=== PATIENT | female | born 1995 | race Caucasian/White ===

== ENCOUNTER 2018-02-02 20:29 | Emergency (ER) | payer OTHER ==
--- OUTSIDE RECORDS SUMMARY | 2018-02-02 20:31 | XMS REPORT | Clinical Summary ---
:1995 Author Organization [facility] Address [address] [place] [id number] Care Team Providers Name Role Phone Radames Myers MD Primary Care Provider Allergies Active Allergy Reactions Severity Noted Date Comments Haloperidol 02/22/2017 Morphine GI Bleeding 02/15/2017 Vancomycin Other (See Comments) 02/15/2017 Red man syndrome Current Medications Prescription Sig. Disp. Refills Start Date End Date Status calcium carbonate Take 3 tablets 270 tablet 0 02/19/2017 03/21/2017 oyster shell (1,500 mg total) (OS-JOSSELINE) 500 mg by mouth 3 calcium (1,250 mg) (three) times a tabletIndications: day for 30 days Hypocalcemia Indications: Hypocalcemia. nicotine (NICODERM Place 1 patch on 30 patch 0 02/19/2017 03/21/2017 CQ) 7 mg/24 the skin daily hrIndications: for 30 days Smoking Cessation Indications: Smoking Cessation. calcitriol Take 1 capsule 90 capsule 0 02/19/2017 03/21/2017 (ROCALTROL) 0.5 MCG (0.5 mcg total) capsuleIndications: by mouth 3 Hypocalcemia (three) times a day for 30 days Indications: Hypocalcemia. cholecalciferol, Take 1 tablet 30 tablet 0 02/19/2017 03/21/2017 vitamin D3, (VITAMIN (1,000 Units D3) 1,000 unit total) by mouth tabletIndications: daily for 30 Vitamin D Deficiency days Indications: Vitamin D Deficiency. butalbital-acetamino Take 1 tablet by 20 tablet 0 02/23/2017 03/25/2017 phen-caff (FIORICET, mouth every 6 ESGIC) 50-325-40 mg (six) hours as per tablet needed for headaches for up to 30 days. hydrOXYzine (ATARAX) Take 1 tablet 20 tablet 0 02/23/2017 03/25/2017 10 MG tablet (10 mg total) by mouth 3 (three) times a day as needed for anxiety for up to 30 days. Active Problems Problem Noted Date Spinal puncture headache 02/22/2017 Pseudotumor cerebri 02/19/2017 Idiopathic hypoparathyroidism 02/19/2017 Hypocalcemia 02/19/2017 Emotionally unstable borderline personality disorder in adult 02/17/2017 Cannabis use disorder, moderate, dependence 02/17/2017 Encounters Date Type Specialty Care Team Description 04/06/2017 Telephone Neurology Talha Quiroga MD 02/23/2017 Patient Outreach Quality Qi Valdovinos RN 02/22/2017 - Emergency General Internal Rosas, Spinal puncture headache ( Primary Dx); 02/23/2017 Medicine Silvino Muscle spasms of neck DO Shruthi Palencia Swati, MD 02/22/2017 Procedure Pass General Internal Medicine 02/20/2017 Documentation Interactive Art Director Arielle Foreman, 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 Clinical Support Ophthalmology February, [place] Testing Only 02/18/2017 Clinical Support Ophthalmology February, [place] Testing Only 02/17/2017 Procedure Pass Psychiatry 02/17/2017 Procedure Pass Psychiatry 02/15/2017 - Hospital Encounter Psychiatry Lucille Escobar Emotionally unstable borderline personality disorder in adult (Primary Dx); 02/19/2017 MD Pilar Cannabis use disorder, moderate, dependence; Panfilo, Pseudotumor cerebri; Stefanie Arias MD Idiopathic hypoparathyroidism; Hypocalcemia after 02/01/2017 Family History Medical History Relation Name Comments Depression Maternal Aunt Suicide Attempts Maternal Aunt Depression Mother Suicide Attempts Mother Relation Name Status Comments Maternal Aunt Mother Social History Tobacco Use Types Packs/Day Years Used Date Current Every Day Smoker Cigarettes Tobacco Cessation: Ready to Quit: No; Counseling Given: Yes Alcohol Use Drinks/Week oz/Week Comments Yes drinks casually, once a month Sex Assigned at Date Recorded Not on file Last Filed Vital Signs Vital Sign Reading Time Taken Blood Pressure 118/72 02/23/2017 8:16 AM CDT Pulse 94 02/23/2017 8:16 AM CDT Temperature 36.4 C (97.5 F) 02/23/2017 8:16 AM CDT Respiratory Rate 17 02/23/2017 8:16 AM CDT Oxygen Saturation 98% 02/23/2017 8:16 AM CDT Inhaled Oxygen Concentration - - Weight 105 kg (232 lb) 02/22/2017 10:54 AM CDT Height 165.1 cm (5' 5") 02/22/2017 1:00 AM CDT Body Mass Index 38.61 02/22/2017 10:54 AM CDT Plan of Treatment Health Maintenance Due Date Last Done Comments CHLAMYDIA SCREENING 2011 CERVICAL CANCER SCREENING 08/16/2016 INFLUENZA VACCINE 12/09/2017 Procedures Procedure Name Priority Date/Time Associated Comments Diagnosis ANTI-NEUTROPHILIC Routine 02/23/2017 10:11 Results for this CYTOPLASMIC ABS PANEL AM CDT procedure are in the results section. SS-B ANTIBODY Routine 02/23/2017 10:11 Results for this AM CDT procedure are in the results section. SS-A ANTIBODY Routine 02/23/2017 10:11 Results for this AM CDT procedure are in the results section. CYCLIC CITRULLINATED Routine 02/23/2017 10:11 Results for this PEPTIDE AB, IGG AM CDT procedure are in the results section. PHOSPHORUS LEVEL Routine 02/23/2017 6:13 Results for this AM CDT procedure are in the results section. MAGNESIUM LEVEL Routine 02/23/2017 6:13 Results for this AM CDT procedure are in the results section. CALCIUM LEVEL Routine 02/23/2017 6:13 Results for this AM CDT procedure are in the results section. ALBUMIN LEVEL Routine 02/23/2017 6:13 Results for this AM CDT procedure are in the results section. IR EPIDURAL BLOOD PATCH STAT 02/22/2017 2:16 Results for this PM CDT procedure are in the results section. MRI BRAIN W WO CONTRAST STAT 02/22/2017 11:51 Results for this AM CDT procedure are in the results section. CT CERVICAL SPINE W STAT 02/22/2017 5:21 Results for this CONTRAST AM CDT procedure are in the results section. CT LUMBAR SPINE W STAT 02/22/2017 5:21 Results for this CONTRAST AM CDT procedure are in the results section. ZZESTIMATED GFR STAT 02/22/2017 1:25 Results for this AM CDT procedure are in the results section. HCG QUALITATIVE, URINE STAT 02/22/2017 1:25 Results for this SCREEN AM CDT procedure are in the results section. URINALYSIS SCREEN AND STAT 02/22/2017 1:25 Results for this MICROSCOPY, WITH REFLEX AM CDT procedure are in TO CULTURE the results section. BASIC METABOLIC PANEL STAT 02/22/2017 1:25 Results for this AM CDT procedure are in the results section. PARTIAL THROMBOPLASTIN STAT 02/22/2017 1:25 Results for this TIME (PTT) AM CDT procedure are in the results section. PROTHROMBIN TIME WITH STAT 02/22/2017 1:25 Results for this INR AM CDT procedure are in the results section. HC COMPLETE BLD COUNT STAT 02/22/2017 1:25 Results for this W/AUTO DIFF AM CDT procedure are in the results section. GRAM STAIN STAT 02/22/2017 1:13 Results for this AM CDT procedure are in the results section. URINE CULTURE STAT 02/22/2017 1:13 Results for this AM CDT procedure are in the results section. PTH-RELATED PEPTIDE Routine 02/19/2017 7:40 Results for this AM CDT procedure are in the results section. MAGNESIUM LEVEL Routine 02/19/2017 4:00 Results for this AM CDT procedure are in the results section. PHOSPHORUS LEVEL Routine 02/19/2017 4:00 Results for this AM CDT procedure are in the results section. ALBUMIN LEVEL Routine 02/19/2017 4:00 Results for this AM CDT procedure are in the results section. CALCIUM LEVEL Routine 02/19/2017 4:00 Results for this AM CDT procedure are in the results section. FUNGUS CULTURE Routine 02/18/2017 6:49 Results for this PM CDT procedure are in the results section. IGG SYNTHESIS RATE Routine 02/18/2017 5:49 Results for this STUDY PM CDT procedure are in the results section. PROTEIN, CSF Routine 02/18/2017 5:49 Results for this PM CDT procedure are in the results section. GLUCOSE LEVEL, CSF Routine 02/18/2017 5:49 Results for this PM CDT procedure are in the results section. CSF CELL COUNT WITH Routine 02/18/2017 5:49 Results for this DIFFERENTIAL PM CDT procedure are in the results section. GRAM STAIN Routine 02/18/2017 5:49 Results for this PM CDT procedure are in the results section. CRYPTOCOCCAL ANTIGEN Routine 02/18/2017 5:49 Results for this SCREEN PM CDT procedure are in the results section. CSF CULTURE Routine 02/18/2017 5:49 Results for this PM CDT procedure are in the results section. IR LUMBAR PUNCTURE Routine 02/18/2017 5:00 Results for this PM CDT procedure are in the results section. VITAMIN D 25 HYDROXY Routine 02/18/2017 2:46 Results for this LEVEL PM CDT procedure are in the results section. VITAMIN D 1,25 Routine 02/18/2017 2:46 Results for this DIHYDROXY LEVEL, SERUM PM CDT procedure are in the results section. RHEUMATOID FACTOR Routine 02/18/2017 6:36 Results for this AM CDT procedure are in the results section. MRI BRAIN W WO CONTRAST Routine 02/17/2017 4:16 Results for this PM CDT procedure are in the results section. MRI BRAIN VENOGRAM Routine 02/17/2017 3:41 Results for this PM CDT procedure are in the results section. TERRY TITER Routine 02/17/2017 7:48 Results for this AM CDT procedure are in the results section. ZZESTIMATED GFR Routine 02/17/2017 7:48 Results for this AM CDT procedure are in the results section. COMPREHENSIVE METABOLIC Routine 02/17/2017 7:48 Results for this PANEL AM CDT procedure are in the results section. PARATHYROID HORMONE Routine 02/17/2017 7:48 Results for this AM CDT procedure are in the results section. PHOSPHORUS LEVEL Routine 02/17/2017 7:48 Results for this AM CDT procedure are in the results section. TERRY Routine 02/17/2017 7:48 Results for this AM CDT procedure are in the results section. C-REACTIVE PROTEIN Routine 02/17/2017 7:48 Results for this AM CDT procedure are in the results section. SEDIMENTATION RATE Routine 02/17/2017 7:48 Results for this AM CDT procedure are in the results section. PROTHROMBIN TIME WITH Routine 02/17/2017 7:48 Results for this INR AM CDT procedure are in the results section. MAGNESIUM LEVEL Routine 02/17/2017 7:48 Results for this AM CDT procedure are in the results section. HC COMPLETE BLD COUNT Routine 02/17/2017 7:48 Results for this W/AUTO DIFF AM CDT procedure are in the results section. URINE DRUGS OF ABUSE Routine 02/16/2017 5:54 Results for this SCREEN AM CDT procedure are in the results section. IGG SYNTHESIS RATE Routine 02/16/2017 4:00 Results for this STUDY AM CDT procedure are in the results section. SYPHILIS TREPONEMAL IGG Routine 02/16/2017 4:00 Results for this AM CDT procedure are in the results section. HEMOGLOBIN A1C Routine 02/15/2017 9:40 Results for this PM CDT procedure are in the results section. ECG 12-LEAD STAT 02/15/2017 7:22 Results for this PM CDT procedure are in the results section. ZZESTIMATED GFR Routine 02/15/2017 5:28 Results for this PM CDT procedure are in the results section. T4, FREE Routine 02/15/2017 5:28 Results for this PM CDT procedure are in the results section. THYROID STIMULATING Routine 02/15/2017 5:28 Results for this HORMONE PM CDT procedure are in the results section. LIPID PANEL Routine 02/15/2017 5:28 Results for this PM CDT procedure are in the results section. COMPREHENSIVE METABOLIC Routine 02/15/2017 5:28 Results for this PANEL PM CDT procedure are in the results section. after 02/01/2017 Results SS-B antibody (02/23/2017 10:11 AM) Sjogren's SS-B <0.2 0.0 - 0.9 AI [facility] DEPARTMENT OF antibody Comment: PATHOLOGY AND GENOMIC SS-B is less sensitive than SS-A for Sjogren's syndrome, but is more MEDICINE specific and is useful in distinguishing SLE from Sjogren's. SS-A should beordered separately if clinically warranted. Specimen Serum Performing Organization Address [facility] Phone Number [facility] DEPARTMENT OF PATHOLOGY AND [address] [place] [id number] GENOMIC MEDICINE SS-A antibody (02/23/2017 10:11 AM) ogren's SS-A >8.0 (H) 0.0 - 0.9 AI [facility] DEPARTMENT OF antibody Comment: PATHOLOGY AND GENOMIC SS-A is sensitive for Sjogren's syndrome, but may also be positive with MEDICINE SLE(up to 30% of SLE patients are positive for SS-A). SS-B is less sensitive, but is useful in distinguishing SLE from Sjogren's, and should be ordered if clinically warranted Specimen Serum Performing Organization Address [facility] Phone Number [facility] DEPARTMENT OF PATHOLOGY AND [address] [place] [address] Cyclic citrullinated peptide antibody, IgG (02/23/2017 10:11 AM) Cyclic citrullin <0.5 0.0 - 2.9 U/mL [facility] DEPARTMENT OF peptide Ab Comment: PATHOLOGY AND GENOMIC Anti-cyclic citrullinated peptide (Anti-CCP) IgG antibodies are present in MEDICINE 60-80% of patients with rhuematoid arthritis (RA) and have specificity of 95-98%. These autoantibodies may be present in the preclinical phase of thedisease, are associated with future RA development and may be useful in predicting increased severity and erosive disease course. Specimen Serum Performing Organization Address [facility] Phone Number [facility] DEPARTMENT OF PATHOLOGY AND [address] [place] [address] Anti-neutrophilic cytoplasmic Abs panel (02/23/2017 10:11 AM) ANCA screen Negative Negative [facility] DEPARTMENT OF PATHOLOGY AND [facility] Specimen Blood Performing Organization Address [facility] Phone Number [facility] DEPARTMENT OF PATHOLOGY AND [address] [place] [address] Phosphorus level (02/23/2017 6:13 AM)Only the most recent of3 resultswithin the time period is included. Phosphorus 6.1 (H) 2.4 - 4.5 mg/dL [facility] DEPARTMENT OF PATHOLOGY AND GENOMIC MEDICINE Specimen Plasma specimen Performing Organization Address [facility] Phone Number [facility] DEPARTMENT OF PATHOLOGY AND [address] [place] [address] Magnesium level (02/23/2017 6:13 AM)Only the most recent of3 resultswithin the time period is included. Magnesium 1.8 1.6 - 2.6 mg/dL [facility] DEPARTMENT OF PATHOLOGY AND GENOMIC MEDICINE Specimen Plasma specimen Performing Organization Address [facility] Phone Number [facility] DEPARTMENT OF PATHOLOGY AND [address] [place] [address] Calcium level (02/23/2017 6:13 AM)Only the most recent of2 resultswithin the time period is included. Calcium 7.3 (L) 8.3 - 10.2 mg/dL [facility] DEPARTMENT OF PATHOLOGY AND GENOMIC MEDICINE Specimen Plasma specimen Performing Organization Address [facility] Phone Number [facility] DEPARTMENT OF PATHOLOGY AND [address] [place] [address] GENOMIC MEDICINE Albumin level (02/23/2017 6:13 AM)Only the most recent of2 resultswithin the time period is included. Albumin 2.9 (L) 3.5 - 5.0 g/dL [facility] DEPARTMENT OF PATHOLOGY AND GENOMIC MEDICINE Specimen Plasma specimen Performing Organization Address [facility] Phone Number [facility] DEPARTMENT OF PATHOLOGY AND [address] [place], [place] [id number] GENOMIC MEDICINE IR Epidural Blood Patch (02/22/2017 2:16 PM) Narrative Performed At EXAMINATION:[facility] CLINICAL H[facility]ORY:post LP spinal headache COMPARISON:None. Findings: Informed consent was obtained. The lower back was prepped and draped in usual sterile fashion. 1% lidocaine was used for local anesthesia. A 20-gauge Touhy needle was advanced into the posterior epidural space at the L2-3 level under intermittent fluoroscopic guidance. Positioning was confirmed with 3-4 cc of Omnipaque 240. Then 12 cc of the patient's venous blood was withdrawn from a peripheral IV and inserted through the needle into the posterior epidural space. No complications. Total fluoroscopic time was 0.1 minute. Total radiation dose was 25 mGY IMPRESSION: Successful fluoroscopic guided lumbar epidural blood patch. [facility]-[id number] Procedure Note Interface, Radiology Results Incoming - 02/22/2017 2:55 PM CDT EXAMINATION: IR EPIDURAL BLOOD PATCH CLINICAL HISTORY: post LP spinal headache COMPARISON: None. Findings: Informed consent was obtained. The lower back was prepped and draped in usual sterile fashion. 1% lidocaine was used for local anesthesia. A 20-gauge Touhy needle was advanced into the posterior epidural space at the L2-3 level under intermittent fluoroscopic guidance. Positioning was confirmed with 3-4 cc of Omnipaque 240. Then 12 cc of the patient's venous blood was withdrawn from a peripheral IV and inserted through the needle into the posterior epidural space. No complications. Total fluoroscopic time was 0.1 minute. Total radiation dose was 25 mGY IMPRESSION: Successful fluoroscopic guided lumbar epidural blood patch. [facility]-[id number] Performing Organization Address [facility] Phone Number [facility] [address] [place] [address] MRI Brain W Wo Contrast (02/22/2017 11:51 AM)Only the most recent of2 resultswithin the time period is included. Narrative Performed At EXAMINATION:MRI BRAIN W WO CONTRAST [facility] CLINICAL HISTORY:HEADACHE, STROKE COMPARISON:February 17, 2017 Findings: No intracranial hemorrhage, acute ischemia, extra-axial fluid collections or parenchymal mass lesions. No hydrocephalus. No suspicious focal bone marrow lesions. No abnormal postcontrast enhancement. Cerebellar tonsillar ectopia. Partial opacification of right mastoid air cells. IMPRESSION: No acute intracranial abnormalities or mass lesions. No interval change since last examination. [facility]-[id number] Procedure Note Interface, Radiology Results Incoming - 02/22/2017 11:59 AM CDT EXAMINATION: MRI BRAIN W WO CONTRAST CLINICAL HISTORY: HEADACHE, STROKE COMPARISON: February 17, 2017 Findings: No intracranial hemorrhage, acute ischemia, extra-axial fluid collections or parenchymal mass lesions. No hydrocephalus. No suspicious focal bone marrow lesions. No abnormal postcontrast enhancement. Cerebellar tonsillar ectopia. Partial opacification of right mastoid air cells. IMPRESSION: No acute intracranial abnormalities or mass lesions. No interval change since last examination. [facility]-[id number] Performing Organization Address City/State/Zipcode Phone Number [facility] [address] [place] [address] CT Cervical Spine W Contrast (02/22/2017 5:21 AM) Narrative Performed At Examination: CT CERVICAL SPINE W CONTRAST [facility] Clinical history: NECK PAINCERVICAL SPINE Comparison: None Technique: CT cervical spine with contrast. Coronal and sagittal reconstructions were created and reviewed. Impression: Straightening of the cervical lordosis is identified. No acute fractures or subluxations. No significant degenerative changes. No spinal canal stenosis or neural foraminal stenosis. Arising from the right lobe of the thyroid gland, a peripherally calcified 6 x 6 mm nodule is identified. No enhancing soft tissue abnormalities are seen. Specifically, no rim-enhancing fluid collections are identified. [id number] Procedure Note Interface, Radiology Results Incoming - 02/22/2017 6:17 AM CDT Examination: CT CERVICAL SPINE W CONTRAST Clinical history: NECK PAIN CERVICAL SPINE Comparison: None Technique: CT cervical spine with contrast. Coronal and sagittal reconstructions were created and reviewed. Impression: Straightening of the cervical lordosis is identified. No acute fractures or subluxations. No significant degenerative changes. No spinal canal stenosis or neural foraminal stenosis. Arising from the right lobe of the thyroid gland, a peripherally calcified 6 x 6 mm nodule is identified. No enhancing soft tissue abnormalities are seen. Specifically, no rim- enhancing fluid collections are identified. [id number] Performing Organization Address [facility] Phone Number [facility] [address] [place] [address] CT Lumbar Spine W Contrast (02/22/2017 5:21 AM) Narrative Performed At Examination: CT LUMBAR SPINE W CONTRAST [facility] Clinical history: back pain s p LP Comparison: None Technique: CT lumbar spine with contrast. Coronal and sagittal reconstructions were created and reviewed. Impression: Lumbar lordosis is maintained. No compression deformities or subluxations. No spinal canal stenosis or neural foraminal stenosis. No soft tissue abnormalities. Specifically, no rim-enhancing fluid collections are identified. [id number] Procedure Note Hm Interface, Radiology Results Incoming - 02/22/2017 7:58 AM CDT Examination: CT LUMBAR SPINE W CONTRAST Clinical history: back pain s p LP Comparison: None Technique: CT lumbar spine with contrast. Coronal and sagittal reconstructions were created and reviewed. Impression: Lumbar lordosis is maintained. No compression deformities or subluxations. No spinal canal stenosis or neural foraminal stenosis. No soft tissue abnormalities. Specifically, no rim-enhancing fluid collections are identified. [facility]-[id number] Performing Organization Address [facility] Phone Number [facility] [address] [place] [address] Urinalysis screen and microscopy, with reflex to culture (02/22/2017 1:25 AM) Specimen site Clean catch [facility] DEPARTMENT OF PATHOLOGY AND GENOMIC MEDICINE Color, UA Yellow [facility] DEPARTMENT OF PATHOLOGY AND GENOMIC MEDICINE Appearance, UA Hazy [facility] DEPARTMENT OF PATHOLOGY AND GENOMIC MEDICINE Specific gravity, UA 1.029 1.001 - 1.035 [facility] DEPARTMENT OF PATHOLOGY AND GENOMIC MEDICINE pH, UA 5.0 5.0 - 8.5 [facility] DEPARTMENT OF PATHOLOGY AND GENOMIC MEDICINE Protein, UA 1+ (A) Negative [facility] DEPARTMENT OF PATHOLOGY AND GENOMIC MEDICINE Glucose, UA Negative Negative [facility] DEPARTMENT OF PATHOLOGY AND GENOMIC MEDICINE Ketones, UA Negative Negative [facility] DEPARTMENT OF PATHOLOGY AND GENOMIC MEDICINE Bilirubin, UA Negative Negative [facility] DEPARTMENT OF PATHOLOGY AND GENOMIC MEDICINE Blood, UA Negative Negative [facility] DEPARTMENT OF PATHOLOGY AND GENOMIC MEDICINE Nitrite, UA Negative Negative [facility] DEPARTMENT OF PATHOLOGY AND GENOMIC MEDICINE Urobilinogen, UA <2.0 <2.0 [facility] DEPARTMENT OF PATHOLOGY AND GENOMIC MEDICINE Leukocyte esterase, UA Trace (A) Negative [facility] DEPARTMENT OF PATHOLOGY AND GENOMIC MEDICINE Epithelial cells, UA 6 /HPF [facility] DEPARTMENT OF PATHOLOGY AND GENOMIC MEDICINE WBC, UA 2 0 - 4 /HPF [facility] DEPARTMENT OF PATHOLOGY AND GENOMIC MEDICINE RBC, UA 1 0 - 2 /HPF [facility] DEPARTMENT OF PATHOLOGY AND GENOMIC MEDICINE Bacteria, UA Few None seen [facility] DEPARTMENT OF PATHOLOGY AND GENOMIC MEDICINE Yeast, UA None seen [facility] DEPARTMENT OF PATHOLOGY AND GENOMIC MEDICINE Yeast with pseudohyphae, UA None seen [facility] DEPARTMENT OF PATHOLOGY AND GENOMIC MEDICINE Specimen Urine Performing Organization Address [facility] Phone Number [facility] DEPARTMENT OF PATHOLOGY AND [address] [place] [address] Estimated GFR (02/22/2017 1:25 AM)Only the most recent of3 resultswithin the time period is included. GFR Non Af Amer >90 mL/min/1.73 m2 [facility] DEPARTMENT OF PATHOLOGY AND GENOMIC MEDICINE GFR Af Amer >90 mL/min/1.73 m2 [facility] DEPARTMENT OF Comment: PATHOLOGY AND GENOMIC Chronic kidney disease: <60 mL/min/1.73m2 MEDICINE Kidney failure: <15 mL/min/1.73m2 The estimated GFR is calculated from the IDMS-traceable Modification of Diet in Renal Disease Equation. The accuracy of the calculation is poor when the creatinine is normal. Calculated values >90 mL/min/1.73m2 are not reported. This equation has not been validated in children (<18 years), women, the elderly (>70 years), or ethnic groups other than Caucasians and Americans. Specimen Plasma specimen Performing Organization Address City/State/Zipcode Phone Number [facility] DEPARTMENT OF PATHOLOGY AND [address] [place] [address] hCG qualitative, urine screen (02/22/2017 1:25 AM) hCG qualitative, urine NegativeComment: [facility] DEPARTMENT OF Sensitivity of HCG test: 25 PATHOLOGY AND GENOMIC mIU/mL MEDICINE Specimen Urine Performing Organization Address City/State/[facility] Phone Number [facility] DEPARTMENT OF PATHOLOGY AND [address] [place] [address] Partial thromboplastin time, activated (02/22/2017 1:25 AM) PTT 25.3 23.0 - 36.0 sec [facility] DEPARTMENT OF PATHOLOGY Comment: AND [facility] PTT therapeutic range for unfractionated heparin is 61.0-112.0 seconds which corresponds to Anti-Xa 0.3-0.7 U/ml. Specimen Blood Performing Organization Address City/[facility]/Zipcode Phone Number [facility] DEPARTMENT OF PATHOLOGY AND [address] [place] [address] Prothrombin time with INR (02/22/2017 1:25 AM)Only the most recent of2 resultswithin the time period is included. Prothrombin time 14.2 12.0 - 15.0 sec [facility] DEPARTMENT OF PATHOLOGY AND GENOMIC MEDICINE INR 1.1 [facility] DEPARTMENT OF Comment: PATHOLOGY AND GENOMIC The International Normalized Ratio (INR) is a therapeutic MEDICINE monitoring tool for patients who are stable on oral anticoagulant therapy. An INR of 2.0-3.0 is suggested for deep vein thrombosis/pulmonary embolism. Specimen Blood Performing Organization Address City/[facility] Phone Number [facility] DEPARTMENT OF PATHOLOGY AND [address] [place] [address] CBC with platelet and differential (02/22/2017 1:25 AM)Only the most recent of2 resultswithin the time period is included. WBC 8.48 4.50 - 11.00 k/uL [facility] DEPARTMENT OF PATHOLOGY AND GENOMIC MEDICINE RBC 4.25 4.20 - 5.50 m/uL [facility] DEPARTMENT OF PATHOLOGY AND GENOMIC MEDICINE HGB 12.3 12.0 - 16.0 g/dL [facility] DEPARTMENT OF PATHOLOGY AND GENOMIC MEDICINE HCT 36.9 (L) 37.0 - 47.0 % [facility] DEPARTMENT OF PATHOLOGY AND GENOMIC MEDICINE MCV 86.8 82.0 - 100.0 fL [facility] DEPARTMENT OF PATHOLOGY AND GENOMIC MEDICINE MCH 28.9 27.0 - 34.0 pg [facility] DEPARTMENT OF PATHOLOGY AND GENOMIC MEDICINE MCHC 33.3 31.0 - 37.0 g/dL [facility] DEPARTMENT OF PATHOLOGY AND GENOMIC MEDICINE RDW - SD 43.8 37.0 - 55.0 fL [facility] DEPARTMENT OF PATHOLOGY AND GENOMIC MEDICINE MPV 10.9 8.8 - 13.2 fL [facility] DEPARTMENT OF PATHOLOGY AND GENOMIC MEDICINE Platelet count 230 150 - 400 k/uL [facility] DEPARTMENT OF PATHOLOGY AND GENOMIC MEDICINE Nucleated RBC 0.00 /100 WBC [facility] DEPARTMENT OF PATHOLOGY AND GENOMIC MEDICINE Neutrophils 63.4 39.0 - 69.0 % [facility] DEPARTMENT OF PATHOLOGY AND GENOMIC MEDICINE Lymphocytes 27.0 25.0 - 45.0 % [facility] DEPARTMENT OF PATHOLOGY AND GENOMIC MEDICINE Monocytes 6.7 0.0 - 10.0 % [facility] DEPARTMENT OF PATHOLOGY AND GENOMIC MEDICINE Eosinophils 2.1 0.0 - 5.0 % [facility] DEPARTMENT OF PATHOLOGY AND GENOMIC MEDICINE Basophils 0.4 0.0 - 1.0 % [facility] DEPARTMENT OF PATHOLOGY AND GENOMIC MEDICINE Immature granulocytes 0.4Comment: 0.0 - 1.0 % [facility] DEPARTMENT OF "Immature PATHOLOGY AND GENOMIC granulocytes" MEDICINE (promyelocytes, myelocytes, metamyelocytes) Specimen Blood Performing Organization Address City/[facility] Phone Number [facility] DEPARTMENT OF PATHOLOGY AND [address] [place] [id number] [facility] Basic metabolic panel (02/22/2017 1:25 AM) Sodium 134 (L) 135 - 148 mEq/L [facility] DEPARTMENT OF PATHOLOGY AND GENOMIC MEDICINE Potassium 4.2 3.5 - 5.0 mEq/L [facility] DEPARTMENT OF PATHOLOGY AND GENOMIC MEDICINE Chloride 97 (L) 98 - 112 mEq/L [facility] DEPARTMENT OF PATHOLOGY AND GENOMIC MEDICINE CO2 24 24 - 31 mEq/L [facility] DEPARTMENT OF PATHOLOGY AND GENOMIC MEDICINE Anion gap 13 7 - 15 mEq/L [facility] DEPARTMENT OF PATHOLOGY Comment: AND [facility] Starting from August , anion gap calculation no longer incorporates potassium. Please note the change. BUN 18 6 - 20 mg/dL [facility] DEPARTMENT OF PATHOLOGY AND GENOMIC MEDICINE Creatinine 0.7 0.5 - 0.9 mg/dL [facility] DEPARTMENT OF PATHOLOGY AND GENOMIC MEDICINE Glucose 99 65 - 99 mg/dL [facility] DEPARTMENT OF PATHOLOGY AND GENOMIC MEDICINE Calcium 7.4 (L) 8.3 - 10.2 mg/dL [facility] DEPARTMENT OF PATHOLOGY AND GENOMIC MEDICINE Specimen Plasma specimen Performing Organization Address City/[facility] Phone Number [facility] DEPARTMENT OF PATHOLOGY AND [address] [place] [address] [facility] Gram stain (02/22/2017 1:13 AM)Only the most recent of2 resultswithin the time period is included. Gram stain result No WBC's [facility] DEPARTMENT OF PATHOLOGY Moderate Gram positive rods AND [employer] MEDICINE Comment: Specimen Information Specimen Source: Urine Specimen Site: See UA Specimen Urine Performing Organization Address [facility] Phone Number [facility] DEPARTMENT OF PATHOLOGY AND [address] [place] [address] Urine culture (02/22/2017 1:13 AM) Urine culture isolate Mixed Gram positive francie [facility] DEPARTMENT OF PATHOLOGY 10-3 cfu/ml AND [employer] [facility] (A) Comment: Specimen Information Specimen Source: Urine Specimen Site: See UA Specimen Urine Performing Organization Address City/[facility] Phone Number [facility] DEPARTMENT OF PATHOLOGY AND [address] [place] [phone] [place] [address] PTH-related peptide (02/19/2017 7:40 AM) PTH-related peptide <0.2 <2.0 pmol/L [facility] DEPARTMENT OF Comment: PATHOLOGY AND GENOMIC ADDITIONAL INFORMATION MEDICINE This test was developed and its performance characteristics determined by [facility] in a manner consistent with CLIA requirements. This test has not been cleared or approved by the U.S. Food and Drug Administration. Test Performed by: [facility] [address] [place] [address] Specimen Blood Performing Organization Address [facility] Phone Number [facility] DEPARTMENT OF PATHOLOGY AND [address] [place], [place] [id number] [employer] [facility] Fungus culture (02/18/2017 6:49 PM) Fungus culture isolate No growth after 4 weeks of incubation. [facility] DEPARTMENT OF Comment: PATHOLOGY AND GENOMIC Specimen Information MEDICINE Specimen Source: CSF (Spinal Fluid) Specimen Site: No tube number noted Colorless Specimen Cerebrospinal fluid Performing Organization Address [facility] Phone Number [facility] DEPARTMENT OF PATHOLOGY AND [address] [place] [address] IgG synthesis rate study (02/18/2017 5:49 PM)Only the most recent of2 resultswithin the time period is included. IgG albumin ratio, CSF 0.34 (H) 0.00 - 0.23 [facility] DEPARTMENT OF PATHOLOGY AND [employer] [facility] IgG index, CSF 0.57 0.01 - 0.63 [facility] DEPARTMENT OF PATHOLOGY AND GENOMIC MEDICINE IgG synthetic rate 3.27 -9.90 - 3.30 mg/day [facility] DEPARTMENT OF PATHOLOGY AND GENOMIC MEDICINE Q-albumin ratio, CSF 3.11 2.00 - 6.00 [facility] DEPARTMENT OF PATHOLOGY AND GENOMIC MEDICINE IgG, CSF 3.63 (H) 1.00 - 3.00 mg/dL [facility] DEPARTMENT OF PATHOLOGY AND GENOMIC MEDICINE Albumin, CSF 10.57 10.00 - 30.00 mg/dL [facility] DEPARTMENT OF PATHOLOGY AND GENOMIC MEDICINE IgG 2,031 (H) 700 - 1,600 mg/dL [facility] DEPARTMENT OF PATHOLOGY AND GENOMIC MEDICINE Albumin, S 3,400.0 (L) 3,640.0 - 5,304.0 mg/dL [facility] DEPARTMENT OF PATHOLOGY AND GENOMIC MEDICINE Specimen Cerebrospinal fluid Performing Organization Address City/[facility] Phone Number [facility] DEPARTMENT OF PATHOLOGY AND [address] [place] [address] Cryptococcal antigen, screen (02/18/2017 5:49 PM) Cryptococcal Ag Negative - No Cryptococcus antigen detected. [facility] DEPARTMENT OF PATHOLOGY Comment: AND [employer] MEDICINE Specimen Information Specimen Source: CSF (Spinal Fluid) Specimen Site: No tube number noted Colorless Specimen Cerebrospinal fluid Performing Organization Address City/[facility] Phone Number [facility] DEPARTMENT OF PATHOLOGY AND [address] [place] [address] CSF culture (02/18/2017 5:49 PM) CSF culture isolate No growth after 3 days. [facility] DEPARTMENT OF PATHOLOGY Comment: AND [employer] MEDICINE Specimen Information Specimen Source: CSF (Spinal Fluid) Specimen Site: No tube number noted Colorless Specimen Cerebrospinal fluid Performing Organization Address City/[facility] Phone Number [facility] DEPARTMENT OF PATHOLOGY AND [address] [place] [phone] [place] [address] CSF cell count with differential (02/18/2017 5:49 PM) Color, CSF Colorless [facility] DEPARTMENT OF PATHOLOGY AND GENOMIC MEDICINE Appearance, CSF Clear [facility] DEPARTMENT OF PATHOLOGY AND GENOMIC MEDICINE RBC, CSF 1 0 - 1 /CMM [facility] DEPARTMENT OF PATHOLOGY AND GENOMIC MEDICINE WBC, CSF 8 (H) 0 - 5 /CMM [facility] DEPARTMENT OF PATHOLOGY AND GENOMIC MEDICINE CSF mononuclear cell See Diff [facility] DEPARTMENT OF PATHOLOGY AND GENOMIC MEDICINE Lymphocytes, CSF 86 % [facility] DEPARTMENT OF PATHOLOGY AND GENOMIC MEDICINE Monocytes, CSF 12 % [facility] DEPARTMENT OF PATHOLOGY AND GENOMIC MEDICINE Plasma cells, CSF 2 % [facility] DEPARTMENT OF PATHOLOGY AND GENOMIC MEDICINE Specimen Cerebrospinal fluid Performing Organization Address City/[facility] Phone Number [facility] DEPARTMENT OF PATHOLOGY AND [address] [place] [address] Protein, CSF (02/18/2017 5:49 PM) Protein, CSF 23 15 - 45 mg/dL [facility] DEPARTMENT OF PATHOLOGY AND GENOMIC MEDICINE Specimen Cerebrospinal fluid Performing Organization Address City/[facility] Phone Number [facility] DEPARTMENT OF PATHOLOGY AND [address] [place] [address] Glucose level, CSF (02/18/2017 5:49 PM) Glucose, CSF 60 40 - 70 mg/dL [facility] DEPARTMENT OF PATHOLOGY AND GENOMIC MEDICINE Specimen Cerebrospinal fluid Performing Organization Address [facility] Phone Number [facility] DEPARTMENT OF PATHOLOGY AND [address] [place] [address] IR Lumbar Puncture by Radiology (02/18/2017 5:00 PM) Narrative Performed At EXAMINATION:IR LUMBAR PUNCTURE RADIANT CLINICAL HISTORY:pseudotumor COMPARISON:None. FINDINGS: Informed consent was obtained from the patient prior to exam. Total fluoroscopy time was 1 second. The patient was prepped in a sterile fashion in the prone position. 1% Xylocaine was utilized for local anesthesia. Ativan was given prior to the procedure as ordered by the referring physician. Utilizing fluoroscopic guidance a 22-gauge spinal needle was placed into subarachnoid space at the L2-3 level. The opening pressure was 26.5 cm. Approximately 17 mL of clear cerebral spinal fluid was withdrawn and then the patient stated she was having worsening headaches and some back pain and she wanted the needle removed and the procedure to the stopped. The needle was removed. The patient was bandaged in a sterile fashion. The patient was sent to the recovery room after the procedure and discharged to the floor after she met discharge criteria. IMPRESSION: Fluoroscopic-guided lumbar puncture to evaluate and treat pseudotumor cerebri. [facility]-[id number] Procedure Note Interface, Radiology Results Incoming - 02/18/2017 5:16 PM CDT EXAMINATION: IR LUMBAR PUNCTURE CLINICAL HISTORY: pseudotumor COMPARISON: None. FINDINGS: Informed consent was obtained from the patient prior to exam. Total fluoroscopy time was 1 second. The patient was prepped in a sterile fashion in the prone position. 1% Xylocaine was utilized for local anesthesia. Ativan was given prior to the procedure as ordered by the referring physician. Utilizing fluoroscopic guidance a 22-gauge spinal needle was placed into subarachnoid space at the L2-3 level. The opening pressure was 26.5 cm. Approximately 17 mL of clear cerebral spinal fluid was withdrawn and then the patient stated she was having worsening headaches and some back pain and she wanted the needle removed and the procedure to the stopped. The needle was removed. The patient was bandaged in a sterile fashion. The patient was sent to the recovery room after the procedure and discharged to the floor after she met discharge criteria. IMPRESSION: Fluoroscopic-guided lumbar puncture to evaluate and treat pseudotumor cerebri. [facility]-[id number] Performing Organization Address [facility] Phone Number [facility] [address] [place] [address] Vitamin D 1,25 dihydroxy level, serum (02/18/2017 2:46 PM) Vit D, 1,25-Dihydroxy 34.30 18.00 - 78.00 [facility] DEPARTMENT OF Comment: pg/mL PATHOLOGY AND GENOMIC This test was developed and its performance characteristics determined by MEDICINE the Department of Pathology and Genomic Medicine, [facility]. Serum 1,25 Dihydroxy Vitamin D is tested by LC-MS/MS. It has not been cleared or approved by FDA. The laboratory is regulated under CLIA as qualified to perform high-complexity testing. This test is used for clinical purposes. It should not be regarded as investigational or for research. Specimen Blood Performing Organization Address [facility] Phone Number [facility] DEPARTMENT OF PATHOLOGY AND [address] [place] [address] [employer] MEDICINE Vitamin D 25 hydroxy level (02/18/2017 2:46 PM) Vitamin D, 25-hydroxy 27.1 (L) 30.0 - 150.0 [facility] DEPARTMENT OF Comment: ng/mL PATHOLOGY AND GENOMIC This assay reports the sum of 25-hydroxy vitamin D3 and 25-hydroxy vitamin MEDICINE D2. Reference range: 0-17 years: Deficiency: less than 20ng/mL Optimum level: greater than or equal to 20 ng/mL. 18 years and older: Deficiency: less than 20ng/mL Insufficiency: 20-29 ng/mL Optimum Level: 30-80 ng/mL The assay reportable range is 3.4155.9 ng/mL. Levels higher than 150 ng/mL may be associated with toxicity. If toxicity is clinically suspected and the reported result is >155.9 ng/mL,contact lab for alternative methods to obtain a definitivelevel. If separate quantitation of 25-hydroxy vitamin D3 and 25-hydroxy vitamin D2 is needed, please contact lab for alternative methods. Specimen Blood Performing Organization Address City/[facility] Phone Number [facility] DEPARTMENT OF PATHOLOGY AND [address] [place] [address] Rheumatoid factor (02/18/2017 6:36 AM) Rheumatoid factor 38 (H) 0 - 13 IU/mL [facility] DEPARTMENT OF PATHOLOGY AND [facility] Specimen Plasma specimen Performing Organization Address [facility] Phone Number [facility] DEPARTMENT OF PATHOLOGY AND [address] [place] [address] MRI Brain Venogram (02/17/2017 3:41 PM) Narrative Performed At EXAMINATION:MRI BRAIN VENOGRAM including three-dimensional images [facility] CLINICAL HISTORY:Intracranial Hypertension COMPARISON:None. FINDINGS: Source images were only obtained in the coronal plane. There is no evidence of acute superficial or deep venous thrombosis. There is greater venous drainage towards the left. The right transverse sinus is hypoplastic greater in the proximal region. There few areas of decreased flow signal in the right distal transverse sinus with the junction with the proximal sigmoid sinus which could be from flow-related artifact or arachnoid granulations. IMPRESSION: No definite evidence of acute superficial or deep venous thrombosis on this exam. [id number] Procedure Note Interface, Radiology Results Incoming - 02/17/2017 3:56 PM CDT EXAMINATION: MRI BRAIN VENOGRAM including three-dimensional images CLINICAL HISTORY: Intracranial Hypertension COMPARISON: None. FINDINGS: Source images were only obtained in the coronal plane. There is no evidence of acute superficial or deep venous thrombosis. There is greater venous drainage towards the left. The right transverse sinus is hypoplastic greater in the proximal region. There few areas of decreased flow signal in the right distal transverse sinus with the junction with the proximal sigmoid sinus which could be from flow-related artifact or arachnoid granulations. IMPRESSION: No definite evidence of acute superficial or deep venous thrombosis on this exam. [facility]-[id number] Performing Organization Address [facility]/Zipcode Phone Number [facility] [address] [place] [id number] TERRY titer (02/17/2017 7:48 AM) TERRY titer >1:320 (A) Not-Detected [facility] DEPARTMENT OF PATHOLOGY AND GENOMIC MEDICINE TERRY pattern Speckle (A) Not-Detected [facility] DEPARTMENT OF PATHOLOGY AND GENOMIC MEDICINE Specimen Blood Performing Organization Address [facility] Phone Number [facility] DEPARTMENT OF PATHOLOGY AND [address] [place] [address] Sedimentation rate (02/17/2017 7:48 AM) Sedimentation rate 25 (H) 0 - 20 mm/hr [facility] DEPARTMENT OF PATHOLOGY AND GENOMIC MEDICINE Specimen Blood Performing Organization Address [facility] Phone Number [facility] DEPARTMENT OF PATHOLOGY AND [address] [place] [address] C-reactive protein (02/17/2017 7:48 AM) CRP 0.52 (H) 0.00 - 0.50 mg/dL [facility] DEPARTMENT OF PATHOLOGY AND GENOMIC MEDICINE Specimen Plasma specimen Performing Organization Address [facility] Phone Number [facility] DEPARTMENT OF PATHOLOGY AND [address] [place] [address] TERRY (02/17/2017 7:48 AM) TERRY screen Detected (A) Not-Detected [facility] DEPARTMENT OF PATHOLOGY AND GENOMIC MEDICINE Specimen Blood Performing Organization Address [facility] Phone Number [facility] DEPARTMENT OF PATHOLOGY AND [address] [place] [address] Parathyroid hormone (02/17/2017 7:48 AM) PTH <15 (A) 15 - 65 pg/mL [facility] DEPARTMENT OF PATHOLOGY AND GENOMIC MEDICINE Specimen Blood Performing Organization Address [facility] Phone Number [facility] DEPARTMENT OF PATHOLOGY AND [address] [place] [address] Comprehensive metabolic panel (02/17/2017 7:48 AM)Only the most recent of2 resultswithin the time period is included. Sodium 140 135 - 148 mEq/L [facility] DEPARTMENT OF PATHOLOGY AND GENOMIC MEDICINE Potassium 3.6 3.5 - 5.0 mEq/L [facility] DEPARTMENT OF PATHOLOGY AND GENOMIC MEDICINE Chloride 104 98 - 112 mEq/L [facility] DEPARTMENT OF PATHOLOGY AND GENOMIC MEDICINE CO2 21 (L) 24 - 31 mEq/L [facility] DEPARTMENT OF PATHOLOGY AND GENOMIC MEDICINE Anion gap 15 7 - 15 mEq/L [facility] DEPARTMENT OF Comment: PATHOLOGY AND GENOMIC Starting from August , anion gap calculation MEDICINE no longer incorporates potassium. Please note the change. BUN 12 6 - 20 mg/dL [facility] DEPARTMENT OF PATHOLOGY AND GENOMIC MEDICINE Creatinine 0.9 0.5 - 0.9 mg/dL [facility] DEPARTMENT OF PATHOLOGY AND GENOMIC MEDICINE Glucose 111 (H) 65 - 99 mg/dL [facility] DEPARTMENT OF PATHOLOGY AND GENOMIC MEDICINE Calcium 6.8 (L) 8.3 - 10.2 mg/dL [facility] DEPARTMENT OF PATHOLOGY AND GENOMIC MEDICINE Protein 7.6 6.3 - 8.3 g/dL [facility] DEPARTMENT OF Comment: PATHOLOGY AND GENOMIC 4.6-7.0 g/dL MEDICINE 1 week 4.4-7.6 g/dL 7 months-1year5.1-7.3 g/dL 1-2 years5.6-7.5 g/dL >3 years6.0-8.0 g/dL 18-150 6.3-8.3 g/dL Albumin 3.2 (L) 3.5 - 5.0 g/dL [facility] DEPARTMENT OF PATHOLOGY AND GENOMIC MEDICINE A/G ratio 0.7 0.7 - 3.8 [facility] DEPARTMENT OF PATHOLOGY AND GENOMIC MEDICINE Alkaline phosphatase 61 35 - 104 U/L [facility] DEPARTMENT OF PATHOLOGY AND GENOMIC MEDICINE AST 20 10 - 35 U/L [facility] DEPARTMENT OF PATHOLOGY AND GENOMIC MEDICINE ALT 16 5 - 50 U/L [facility] DEPARTMENT OF PATHOLOGY AND GENOMIC MEDICINE Total bilirubin 0.3 0.0 - 1.2 mg/dL [facility] DEPARTMENT OF PATHOLOGY AND GENOMIC MEDICINE Specimen Plasma specimen Performing Organization Address City/State/[facility] Phone Number [facility] DEPARTMENT OF PATHOLOGY AND [address] [place] [address] [facility] Urine drugs of abuse screen (02/16/2017 5:54 AM) Amphetamine screen, urine Negative [facility] DEPARTMENT OF PATHOLOGY AND GENOMIC MEDICINE Barbiturate screen, urine Negative [facility] DEPARTMENT OF PATHOLOGY AND GENOMIC MEDICINE Benzodiazepine screen, Positive (A) [facility] DEPARTMENT OF urine PATHOLOGY AND GENOMIC MEDICINE Cannabinoid screen, urine Positive (A) [facility] DEPARTMENT OF PATHOLOGY AND GENOMIC MEDICINE Cocaine screen, urine Negative [facility] DEPARTMENT OF PATHOLOGY AND GENOMIC MEDICINE Methadone metabolite Negative [facility] DEPARTMENT OF (EDDP), urine PATHOLOGY AND GENOMIC MEDICINE Opiates screen, urine Negative [facility] DEPARTMENT OF PATHOLOGY AND GENOMIC MEDICINE Oxycodone screen, urine Negative [facility] DEPARTMENT OF PATHOLOGY AND [facility] MEDICINE Phencyclidine screen, urine Negative [facility] DEPARTMENT OF PATHOLOGY AND [facility] MEDICINE Tricyclic screen, urine Negative [facility] DEPARTMENT OF Comment: PATHOLOGY AND GENOMIC Drug screen minimum concentration of detectability MEDICINE [id number] ng/mL Barbiturates 200 ng/mL Jtomkcsgbqgqedb879 ng/mL Swqsncn710 ng/mL Ymwjywtmi720 ng/mL Tvzmxto054 ng/mL Vfulzevfq443 ng/mL Phencyclidine 25 ng/mL Tvoyiarbvxmi64 ng/mL Iprnonhbsi2758 ng/mL Negative test results indicates presumptive evidence of lack of clinically significant drug concentration in this urine specimen. Positive test results are presumptive evidence of clinically significant drug concentration in this urine specimen. Testing performed for medical purposes only. Specimen Urine Performing Organization Address City/State/Zipcode Phone Number [facility] DEPARTMENT OF PATHOLOGY AND [address] [place] [address] Syphilis treponemal IgG (02/16/2017 4:00 AM) Syphilis treponemal IgG Non-reactiveComment: Non-reactive [facility] DEPARTMENT OF Non-reactive: No PATHOLOGY AND GENOMIC serological evidence of MEDICINE Syphilis infection Specimen Serum Performing Organization Address [facility] Phone Number [facility] DEPARTMENT OF PATHOLOGY AND [address] [place] [address] Hemoglobin A1c (02/15/2017 9:40 PM) Hemoglobin A1C 5.4 4.0 - 5.6 % [facility] DEPARTMENT OF PATHOLOGY Comment: AND [facility] HbA1c cutoffs for diagnosing diabetes: 4.0% - 5.6%=normal 5.7% - 6.4%=increased risk for diabetes (prediabetes) >=6.5%=diabetes Goals for glycemic control (ADA 2016) < 7.0%Target for non adults with diabetes. More or less stringent targets may be appropriate for individual patients. <7.5% Target for Children and adolescents with type 1 diabetes. Specimen Blood Performing Organization Address City/State/Zipcode Phone Number [facility] DEPARTMENT OF PATHOLOGY AND [address] [place] [address] ECG 12 lead (02/15/2017 7:22 PM) Ventricular rate 90 [facility] Atrial rate 90 [facility] ME interval 130 [facility] QRSD interval 84 [facility] MUSE QT interval 378 [facility] MUSE QTC interval 462 [facility] M[facility] P axis 1 41 [facility] M[facility] QRS axis 1 55 [facility] M[facility] T wave axis 24 [facility] EKG impression ^^^ Poor data quality, interpretation may be [facility] M[facility] adversely affected-Normal sinus rhythm-Normal ECG-No previous ECGs available- Performing Organization Address [facility] Phone Number [facility] MUSE [address] [place] [phone] Thyroid stimulating hormone (02/15/2017 5:28 PM) TSH 0.46 0.27 - 4.20 uIU/mL [facility] DEPARTMENT OF PATHOLOGY AND GENOMIC MEDICINE Specimen Plasma specimen Performing Organization Address [facility] Phone Number [facility] DEPARTMENT OF PATHOLOGY AND [address] [place] [phone] GENOMIC MEDICINE T4, free (02/15/2017 5:28 PM) T4, free 1.1 0.9 - 1.7 ng/dL [facility] DEPARTMENT OF PATHOLOGY AND GENOMIC MEDICINE Specimen Plasma specimen Performing Organization Address [facility] Phone Number [facility] DEPARTMENT OF PATHOLOGY AND [address] [place] [phone] GENOMIC MEDICINE Lipid panel (02/15/2017 5:28 PM) Cholesterol 83 <200 mg/dL [facility] DEPARTMENT OF PATHOLOGY AND GENOMIC MEDICINE Triglycerides 71 <150 mg/dL [facility] DEPARTMENT OF PATHOLOGY AND GENOMIC MEDICINE HDL cholesterol 27 (L) >40 mg/dL [facility] DEPARTMENT OF PATHOLOGY AND GENOMIC MEDICINE LDL cholesterol 50Comment: Result <100 mg/dL [facility] DEPARTMENT OF obtained by direct LDL PATHOLOGY AND GENOMIC measurement MEDICINE Lipid panel interpretation SeeBelow [facility] DEPARTMENT OF Comment: PATHOLOGY AND GENOMIC Total Cholesterol (mg/dL) MEDICINE <200 Desirable 220-692Aykdgouiju-kaof >=240High Triglycerides (mg/dL) <150 Normal 599-589Ysrzhwnkpf-jarr 200-499High >=500Very high HDL Cholesterol (mg/dL) <40Low (male) <40Low (female) LDL Cholesterol (mg/dL) <100 Optimal 100-129Near or above optimal 827-132Eekmojamhi-anmg 160-189High >=190Very high Risk Catergories that modify LDL goals. Risk CatergoriesLDL goal (mg/dL) CHD and CHD risk equivalent<100 (10-year risk >20%) Multiple (2+) risk factors <130 (10-year risk=<20%) 0-1 risk factors <160 (<10-year risk) Defining levels of lipids in metabolic syndrome Triglycerides>=150 mg/dL HDL Cholesterol Men<40 mg/dL Women<40 mg/dL Non-HDL cholesterol is a second target for therapy in persons with high triglycerides (>=200 mg/dL) Specimen Plasma specimen Performing Organization Address City/State/Zipcode Phone Number [facility] DEPARTMENT OF PATHOLOGY AND [address] [place] [address] [employer] MEDICINE after 02/01/2017
[2018-02-02] MEDS ORDERED: NA CHLORIDE 0.9% 1,000 ML ONE (21:03)
[2018-02-02] MEDS ORDERED: ONDANSETRON 4 MG/2 ML VIAL ONE (21:03)
[2018-02-02] MEDS ORDERED: FAMOTIDINE 20 MG/2 ML VIAL IV ONE (21:03)
[2018-02-02 21:33] LABS: Absolute Lymphocytes (CBC) 2.7 K/uL (0.7-4.9); Absolute Monocytes 0.9 K/uL (0.1-1.3); Absolute Neutrophil 6.7 K/uL (1.8-8.0); Basophils % 0.3 % (0-1.3); Eosinophils % 1.8 % (0-4.4); Hematocrit 40.2 % (36.0-45.0); Lymphocytes % 25.5 % (15.3-44.8); MCH 29.6 pg (27.0-35.0); MCV 87.3 fL (80-100); MPV 9.2 fL (7.6-11.3); Monocytes % 8.2 % (3.3-12.3); RBC Red Blood Cell Count 4.61 M/uL (3.86-4.86)
--- NOTE | 2018-02-02 21:38 | RAD REPORT ---
EXAM DESCRIPTION: RAD - Chest Pa And Lat (2 Views) - 02/02/2018 9:29 pm CLINICAL HISTORY: Cough and congestion COMPARISON: June 2015 TECHNIQUE: PA and lateral views of the chest were obtained. FINDINGS: The lungs are clear. Heart size is normal and central vasculature is within normal limit s. No pleural effusion or pneumothorax seen. No acute bony finding noted. No aortic abnormality. IMPRESSION: No acute cardiopulmonary process. No significant change from comparison.
[2018-02-02 22:03] LABS: ALT/SGPT 20 U/L (12-78); AST/SGOT 13 U/L (15-37); Albumin 3.1 g/dL (3.4-5.0); Alkaline Phosphatase 91 U/L (45-117); BUN Blood Urea Nitrogen 8 mg/dL (7-18); Bicarbonate 27 mmol/L (21-32); Bilirubin Direct 0.1 mg/dL (0-0.2); Bilirubin Total 0.3 mg/dL (0.2-1.0); Glucose Level 82 mg/dL (74-106); Lipase 127 U/L (73-393); Potassium 3.3 mmol/L (3.5-5.1); Protein, Total 8.5 g/dL (6.4-8.2); Sodium Level 139 mmol/L (136-145)
--- NOTE | 2018-02-02 22:04 | EDPHYS ---
Physician Documentation [facility] Name: Letty Hall Age: 22 yrs Sex: Female : 1995 Arrival Date: 02/02/2018 Time: 20:31 Bed 28 Private MD: Jose Lion K ED Physician Dionte Hayes HPI: 02/02 20:55 This 22 yrs old Female presents to ER via Ambulatory with complaints of cp Breathing Difficulty, Cough, Ear Pain. 20:55 The patient has shortness of breath with light activity. cp 20:55 Onset: The symptoms/episode began/occurred 1 week(s) ago. Duration: The symptoms are cp continuous. Associated signs and symptoms: Pertinent positives: productive cough, vomiting, ear pain, Pertinent negatives: fever, hemoptysis. 20:55 Severity of symptoms: in the emergency department the symptoms are unchanged despite cp home interventions. Historical: - Allergies: 20:40 Haldol; la1 20:40 Morphine; la1 20:40 VANCOMYCIN AND DERIVATIVES; la1 - PMHx: 20:40 Anxiety; Depression; GERD; hypocalcemia; hypoparathyroidism; psuedo cranial la1 hypertension; Sinus Tachycardia; - Immunization history:: Adult Immunizations up to date. - Social history:: Smoking status: unknown. - Ebola Screening: : No symptoms or risks identified at this time. ROS: 21:00 Constitutional: Negative for body aches, chills, fever, poor PO intake. cp 21:00 Eyes: Negative for injury, pain, redness, and discharge. cp 21:00 ENT: Positive for ear pain, rhinorrhea, sinus congestion, Negative for drainage from ear(s), difficulty swallowing, difficulty handling secretions. 21:00 Cardiovascular: Negative for chest pain, edema, palpitations. 21:00 Respiratory: Positive for cough, with green sputum, Negative for hemoptysis. 21:00 Abdomen/GI: Positive for nausea, vomiting, Negative for abdominal pain, constipation. 21:00 : Positive for urinary symptoms. 21:00 Skin: Negative for cellulitis, rash. 21:00 Neuro: Positive for headache, Negative for altered mental status, weakness. 21:00 All other systems are negative. Exam: 21:07 Constitutional: The patient appears in no acute distress, alert, awake, cp non-diaphoretic, non-toxic, well developed, well nourished, appears ill 21:07 Head/Face: Normocephalic, atraumatic. cp 21:07 Eyes: Periorbital structures: appear normal, Pupils: equal, round, and reactive to light and accomodation, Extraocular movements: intact throughout, Conjunctiva: normal, no exudate, no injection, Sclera: no appreciated abnormality, Lids and lashes: appear normal, bilaterally. 21:07 ENT: External ear(s): are unremarkable, Ear canal(s): erythema, that is moderate, bilaterally, TM's: bulging, bilaterally, erythema, that is moderate, bilaterally, Nose: nasal drainage, that is minimal, Mouth: Lips: moist, Oral mucosa: moist, Posterior pharynx: Airway: no evidence of obstruction, patent, Tonsils: no enlargement, no exudate, Uvula: midline, swelling, is not appreciated, erythema, that is mild, exudate, is not appreciated, Voice: is normal. 21:07 Neck: ROM/movement: is normal, is supple, without pain, no range of motions limitations, no meningismus, no nuchal rigidity, Lymph nodes: no appreciated lymphadenopathy. 21:07 Chest/axilla: Inspection: normal, Palpation: is normal, no crepitus, no tenderness. 21:07 Cardiovascular: Rate: tachycardic, Rhythm: regular, JVD: is not appreciated. 21:07 Respiratory: the patient does not display signs of respiratory distress, Respirations: normal, no use of accessory muscles, no retractions, no splinting, no tachypnea, Breath sounds: bronchial sounds, that are mild, are heard diffusely, decreased breath sounds, are not appreciated, stridor, is not appreciated, + upper airway congestion. wheezing: is not appreciated. 21:07 Abdomen/GI: Inspection: abdomen appears normal, Bowel sounds: active, all quadrants, Palpation: abdomen is soft and non-tender, in all quadrants, rebound tenderness, is not appreciated, voluntary guarding, is not appreciated, involuntary guarding, is not appreciated. 21:07 Back: ROM is normal, CVA tenderness, that is mild. 21:07 Musculoskeletal/extremity: Exam is negative for bony tenderness, calf tenderness, decreased range of motion, edema, injury. 21:07 Skin: cellulitis, is not appreciated, no rash present. 21:07 Neuro: Orientation: to person, place \T\ time. Mentation: lucid, able to follow commands, Cerebellar function: is grossly normal, Motor: moves all fours, strength is normal, Sensation: no obvious gross deficits, Gait: is steady. Vital Signs: 20:40 BP 137 / 77; Pulse 112; Resp 16; Temp 98.9(O); Pulse Ox 100% on R/A; Weight 106.59 kg; la1 Height 5 ft. 5 in. (165.10 cm); 21:34 BP 104 / 58; Pulse 92; Resp 18; Pulse Ox 97% on R/A; aa1 22:20 BP 116 / 60; Pulse 90; Resp 18; Pulse Ox 98% on R/A; aa1 20:40 Body Mass Index 39.11 (106.59 kg, 165.10 cm) la1 MDM: 20:52 Patient medically screened. cp 21:00 Differential diagnosis: asthma, Bronchitis pneumonia, reactive airway disease, Sepsis cp otitis media, electrolyte abnormality, dehydration. 22:10 Data reviewed: vital signs, nurses notes, lab test result(s), radiologic studies, plain cp films, and as a result, I will discharge patient. 22:30 Refusal of service: The patient/guardian displays adequate decision making capability cp and despite a detailed discussion of alternatives, benefits, risks, and consequences refuses: IV calcium replacement. patient requesting discharge due to length of time to give IV calcium. 02/02 20:51 Order name: Basic Metabolic Panel; Complete Time: 22:08 02/02 20:51 Order name: CBC with Diff; Complete Time: 21:53 02/02 20:51 Order name: Creatinine for Radiology; Complete Time: 22:08 02/02 20:51 Order name: Hepatic Function; Complete Time: 22:08 02/02 20:51 Order name: Lipase; Complete Time: 22:08 02/02 21:34 Order name: Urine Dipstick--Ancillary (enter results) [facility] 02/02 20:51 Order name: XRAY Chest Pa And Lat (2 Views); Complete Time: 21:53 02/02 21:53 Interpretation: Report reviewed. 02/02 21:34 Order name: Urine --Ancillary (enter results) [facility] 02/02 20:51 Order name: IV Saline Lock; Complete Time: 21:26 cp 02/02 20:51 Order name: Labs collected and sent; Complete Time: : cp 02/02 20:51 Order name: Urine Dipstick-Ancillary (obtain specimen); Complete Time: : cp 02/02 20:51 Order name: Urine Test (obtain specimen); Complete Time: 21:25 cp 02/02 21:53 Order name: PO challenge; Complete Time: 22:22 cp Administered Medications: 21:02 Drug: Zofran 4 mg Route: IVP; Site: right antecubital; aa1 22:00 Follow up: Response: No adverse reaction; Nausea is decreased aa1 21:02 Drug: NS 0.9% 1000 ml Route: IV; Rate: 1 bolus; Site: right antecubital; aa1 22:00 Follow up: IV Status: Completed infusion aa1 21:04 Drug: Pepcid 20 mg Route: IVP; Site: right antecubital; aa1 22:00 Follow up: Response: No adverse reaction; Marked relief of symptoms aa1 22:13 Drug: Augmentin 875 mg Route: PO; aa1 22:38 Follow up: Response: No adverse reaction; Medication administered at discharge. aa1 22:13 Drug: predniSONE 40 mg Route: PO; aa1 22:38 Follow up: Response: No adverse reaction; Medication administered at discharge. aa1 22:13 Drug: Tussionex Pennkinetic ER 5 ml Route: PO; aa1 22:38 Follow up: Response: No adverse reaction; Medication administered at discharge. aa1 22:13 Drug: Potassium Chloride 40 mEq Route: PO; aa1 22:38 Follow up: Response: No adverse reaction; Medication administered at discharge. aa1 22:22 Not Given (Patient Refused): Calcium Gluconate 2 grams IVPB once over 60 mins; (mix in aa1 NS 100 mL) 22:28 Drug: Albuterol 2.5 mg Route: Inhalation; aa1 22:28 Drug: AtroVENT Aerosol 0.5 mg Route: Inhalation; aa1 Disposition: 02/03 01:10 Co-signature as Attending Physician, Dionte Hayes MD. ma2 Disposition: 02/02/18 22:03 Discharged to Home. Impression: Acute bronchitis, unspecified, Otitis media, unspecified, bilateral, Nausea and vomiting, Hypocalcemia. - Condition is Stable. - Discharge Instructions: Acute Bronchitis, Adult, Otitis Media, Adult, Nausea and Vomiting, Adult, Hypocalcemia, Adult. - Prescriptions for Augmentin 875- 125 mg Oral Tablet - take 1 tablet by ORAL route every 12 hours for 10 days; 20 tablet. Zofran 4 mg Oral Tablet - take 1 tablet by ORAL route every 12 hours As needed; 20 tablet. Prednisone 20 mg Oral Tablet - take 2 tablet by ORAL route once daily for 5 days; 10 tablet. Guaifenesin AC 10- 100 mg/5 mL Oral Liquid - take 10 milliliter by ORAL route every 4 hours As needed; 240 milliliter. - Medication Reconciliation Form, Thank You Letter, Antibiotic Education, Prescription Opioid Use form. - Follow up: Private Physician; When: 2 - 3 days; Reason: Recheck today's complaints. - Problem is new. - Symptoms have improved. Signatures: Dispatcher [employer] EDMS Janny Ocampo RN RN aa1 Gildardo Jimenez RN RN la1 Zi Oconnor PA PA cp Alzahri, Mohammad, MD MD ma2 Corrections: (The following items were deleted from the chart) 02/02 22:14 22:03 02/02/2018 22:03 Discharged to Home. Impression: Acute bronchitis, unspecified; cp Otitis media, unspecified, bilateral; Nausea and vomiting. Condition is Stable. Forms are Medication Reconciliation Form, Thank You Letter, Antibiotic Education, Prescription Opioid Use. Follow up: Private Physician; When: 2 - 3 days; Reason: Recheck today's complaints. Problem is new. Symptoms have improved. martha 22:41 22:14 02/02/2018 22:03 Discharged to Home. Impression: Acute bronchitis, unspecified; aa1 Otitis media, unspecified, bilateral; Nausea and vomiting; Hypocalcemia. Condition is Stable. Discharge Instructions: Acute Bronchitis, Adult, Otitis Media, Adult, Nausea and Vomiting, Adult, Hypocalcemia, Adult. Prescriptions for Augmentin 875-125 mg Oral Tablet - take 1 tablet by ORAL route every 12 hours for 10 days; 20 tablet, Zofran 4 mg Oral Tablet - take 1 tablet by ORAL route every 12 hours As needed; 20 tablet, Prednisone 20 mg Oral Tablet - take 2 tablet by ORAL route once daily for 5 days; 10 tablet, Guaifenesin AC 10-100 mg/5 mL Oral Liquid - take 10 milliliter by ORAL route every 4 hours As needed; 240 milliliter. and Forms are Medication Reconciliation Form, Thank You Letter, Antibiotic Education, Prescription Opioid Use. Follow up: Private Physician; When: 2 - 3 days; Reason: Recheck today's complaints. Problem is new. Symptoms have improved. cp
--- NOTE | 2018-02-02 22:04 | ER ---
Nurse's Notes [facility] Name: Letty Hall Age: 22 yrs Sex: Female : 1995 Arrival Date: 02/02/2018 Time: 20:31 Bed 28 Private MD: Jose Lion K Diagnosis: Acute bronchitis, unspecified;Otitis media, unspecified, bilateral;Nausea and vomiting;Hypocalcemia Presentation: 02/02 20:39 Presenting complaint: Patient states: Headache, ear pain, cough for one week. la1 Transition of care: patient was not received from another setting of care. Onset of symptoms was February 02, 2018. Risk Assessment: Do you want to hurt yourself or someone else? Patient reports no desire to harm self or others. Initial Sepsis Screen: Does the patient meet any 2 criteria? No. Patient's initial sepsis screen is negative. Does the patient have a suspected source of infection? No. Patient's initial sepsis screen is negative. Care prior to arrival: None. 20:39 Method Of Arrival: Ambulatory la1 20:39 Acuity: BHAKTI 3 la1 Historical: - Allergies: 20:40 Haldol; la1 20:40 Morphine; la1 20:40 VANCOMYCIN AND DERIVATIVES; la1 - PMHx: 20:40 Anxiety; Depression; GERD; hypocalcemia; hypoparathyroidism; psuedo cranial la1 hypertension; Sinus Tachycardia; - Immunization history:: Adult Immunizations up to date. - Social history:: Smoking status: unknown. - Ebola Screening: : No symptoms or risks identified at this time. Screenin:50 Abuse screen: Denies threats or abuse. Denies injuries from another. Nutritional aa1 screening: No deficits noted. Tuberculosis screening: No symptoms or risk factors identified. Fall Risk None identified. Assessment: 20:50 General: Appears in no apparent distress. comfortable, Behavior is calm, cooperative, aa1 appropriate for age. Pain: Complains of pain in right ear and left ear Quality of pain is described as shooting, throbbing, Is continuous. Neuro: Level of Consciousness is awake, alert, obeys commands, Oriented to person, place, time, situation, Moves all extremities. Full function Gait is steady, Speech is normal. Cardiovascular: Heart tones S1 S2 present Rhythm is regular. Respiratory: Reports cough that is non-productive, Airway is patent Respiratory effort is even, unlabored, Breath sounds are clear bilaterally. GI: No signs and/or symptoms were reported involving the gastrointestinal system. : No signs and/or symptoms were reported regarding the genitourinary system. EENT: Reports pain in left ear and right ear. Derm: Skin is intact, is healthy with good turgor, Skin is pink, warm \\T\\ dry. Musculoskeletal: Circulation, motion, and sensation intact. Capillary refill < 3 seconds. 22:07 Reassessment: Critical lab result- Ca of 6.7 relayed by SiSaf. mg2 22:20 Reassessment: Patient appears in no apparent distress at this time. Patient and/or aa1 family updated on plan of care and expected duration. Pain level reassessed. Patient is alert, oriented x 3, equal unlabored respirations, skin warm/dry/pink. Pt has orders to receive calcium infusion however pt wishes to refuse medication because she and her significant other both have to work in the morning and they are ready to go home. States, "Anything above a 5 on my calcium is normal for me and I am seeing my PCP on Thursday anyway so I'll just tell them it was low when I was here." PA notified. 22:40 Reassessment: Patient appears in no apparent distress at this time. Patient is alert, aa1 oriented x 3, equal unlabored respirations, skin warm/dry/pink. Discussed d/c \\T\\ f/u instructions with pt \\T\\ significant other; denies questions or concerns at this time. Vital Signs: 20:40 BP 137 / 77; Pulse 112; Resp 16; Temp 98.9(O); Pulse Ox 100% on R/A; Weight 106.59 kg; la1 Height 5 ft. 5 in. (165.10 cm); 21:34 BP 104 / 58; Pulse 92; Resp 18; Pulse Ox 97% on R/A; aa1 22:20 BP 116 / 60; Pulse 90; Resp 18; Pulse Ox 98% on R/A; aa1 20:40 Body Mass Index 39.11 (106.59 kg, 165.10 cm) la1 ED Course: 20:31 Patient arrived in ED. ds1 20:32 Jose Lion MD is Private Physician. ds1 20:40 Triage completed. la1 20:40 Yee Zavala FNP-C is PHCP. snw 20:40 Dionte Hayes MD is Attending Physician. snw 20:41 PHCP role handed off by Yee Zavala FNP-C cp 20:41 Zi Oconnor PA is PHCP. cp 20:41 Arm band placed on left wrist. la1 20:49 Janny Ocampo, RN is Primary Nurse. aa1 20:50 Patient has correct armband on for positive identification. Bed in low position. Call aa1 light in reach. Pulse ox on. 21:00 Initial lab(s) drawn, by me, sent to lab. Urine collected: clean catch specimen, david aa1 colored. Inserted saline lock: 20 gauge in right antecubital area, using aseptic technique. Blood collected. 21:29 XRAY Chest Pa And Lat (2 Views) In Process Unspecified. EDMS 22:40 No provider procedures requiring assistance completed. IV discontinued, intact, aa1 bleeding controlled, No redness/swelling at site. Pressure dressing applied. Administered Medications: 21:02 Drug: Zofran 4 mg Route: IVP; Site: right antecubital; aa1 22:00 Follow up: Response: No adverse reaction; Nausea is decreased aa1 21:02 Drug: NS 0.9% 1000 ml Route: IV; Rate: 1 bolus; Site: right antecubital; aa1 22:00 Follow up: IV Status: Completed infusion aa1 21:04 Drug: Pepcid 20 mg Route: IVP; Site: right antecubital; aa1 22:00 Follow up: Response: No adverse reaction; Marked relief of symptoms aa1 22:13 Drug: Augmentin 875 mg Route: PO; aa1 22:38 Follow up: Response: No adverse reaction; Medication administered at discharge. aa1 22:13 Drug: predniSONE 40 mg Route: PO; aa1 22:38 Follow up: Response: No adverse reaction; Medication administered at discharge. aa1 22:13 Drug: Tussionex Pennkinetic ER 5 ml Route: PO; aa1 22:38 Follow up: Response: No adverse reaction; Medication administered at discharge. aa1 22:13 Drug: Potassium Chloride 40 mEq Route: PO; aa1 22:38 Follow up: Response: No adverse reaction; Medication administered at discharge. aa1 22:22 Not Given (Patient Refused): Calcium Gluconate 2 grams IVPB once over 60 mins; (mix in aa1 NS 100 mL) 22:28 Drug: Albuterol 2.5 mg Route: Inhalation; aa1 22:28 Drug: AtroVENT Aerosol 0.5 mg Route: Inhalation; aa1 Outcome: 22:03 Discharge ordered by . cp 22:40 Discharged to home ambulatory, with significant other. aa1 22:40 Condition: good 22:40 Discharge instructions given to patient, significant other, Instructed on discharge instructions, follow up and referral plans. medication usage, Demonstrated understanding of instructions, follow-up care, medications, Prescriptions given X 4. 22:41 Patient left the ED. aa1 Signatures: Dispatcher [employer] EDMS Janny Ocampo RN RN aa1 Yee Zavala, CATIA DESIGNER-C CATIA DESIGNER-CsnFariba Martin ds1 Gildardo Jimenez RN RN la1 Zi Oconnor PA PA Buddy Cottrell RN RN mg2 Corrections: (The following items were deleted from the chart) 21:25 21:22 Pepcid 20 mg IVP in right antecubital aa1 aa1
[2018-02-02] MEDS ORDERED: ALBUTEROL 2.5 MG/3 ML NEB SOL ONE (22:08)
[2018-02-02] MEDS ORDERED: IPRATROPIUM BROM 0.5MG/2.5ML ONE (22:08)
[2018-02-02] MEDS ORDERED: AMOX/K CLAV 875 MG TAB ONE (22:09)
[2018-02-02] MEDS ORDERED: HYDROCODONE/CHLORPHEN 5 ML/OSYR ONE (22:09)
[2018-02-02] MEDS ORDERED: predniSONE 20 MG TAB ONE (22:09)
[2018-02-02 22:10] LABS: Urine Blood NEGATIVE (NEG); Urine Glucose NEGATIVE (NEG); Urine Protein NEGATIVE (NEG); Urine pH 6.5 (5.0-7.0)
[2018-02-02] MEDS ORDERED: POTASSIUM CL SA 10 MEQ TAB PO ONE (22:16)
[2018-02-02] MEDS ORDERED: Caclcium Chloride 10% INJ SYR IV ONE (22:23)
== END 2018-02-02 22:41 | disposition home or self-care (01) ==
LOC: ER 20:29
DX: J20.9 Acute bronchitis, unspecified (principal); H66.93 Otitis media, unspecified, bilateral; E83.51 Hypocalcemia; I10 Essential (primary) hypertension; Z88.3 Allergy status to other anti-infective agents; Z88.5 Allergy status to narcotic agent
CPT/HCPCS: 36415; 71046; 80048; 80076; 81003; 81025; 83690; 85025; 96361; 96374; 96375; 99284; J2405; J7030; J7512

== ENCOUNTER 2018-04-13 02:07 | Emergency (ER) | payer OTHER ==
--- OUTSIDE RECORDS SUMMARY | 2018-04-13 02:08 | XMS REPORT | Clinical Summary ---
:1995 Author Organization [facility] Address [address] [place] [id number] Care Team Providers Name Role Phone Radames Myers MD Primary Care Provider Allergies Active Allergy Reactions Severity Noted Date Comments Haloperidol 02/22/2017 Morphine GI Bleeding 02/15/2017 Vancomycin Other (See Comments) 02/15/2017 Red man syndrome Medications No known medications Active Problems Problem Noted Date Spinal puncture headache 02/22/2017 Pseudotumor cerebri 02/19/2017 Idiopathic hypoparathyroidism 02/19/2017 Hypocalcemia 02/19/2017 Emotionally unstable borderline personality disorder in adult 02/17/2017 Cannabis use disorder, moderate, dependence 02/17/2017 Family History Medical History Relation Name Comments [...] Assigned at Date Recorded Not on file Job Start Date Occupation Industry Not on file Not on file Not on file Travel History Travel Start Travel End No recent travel history available. Last Filed Vital Signs Not on file Plan of Treatment Health Maintenance Due Date Last Done Comments CHLAMYDIA SCREENING 2011 CERVICAL CANCER SCREENING 08/16/2016 INFLUENZA VACCINE 12/09/2017 HEPATITIS B VACCINES Aged Out No longer eligible based on patient's age to complete this topic IPV VACCINES Aged Out No longer eligible based on patient's age to complete this topic MENINGOCOCCAL VACCINE Aged Out No longer eligible based on patient's age to complete this topic Results Not on fileafter 04/12/2017 Advance Directives Patient has advance care planning documents, and code status on file. For more information, please contact:Jean Marie [id number] [place] [address] Code Status Date Activated Date Inactivated Comments Full Code 02/15/2017 5:32 PM 02/19/2017 9:55 PM Code Status decision reached by: Patient
[2018-04-13] MEDS ORDERED: NA CHLORIDE 0.9% 1,000 ML ONE (02:32)
[2018-04-13 03:33] LABS: Absolute Monocytes 0.6 K/uL (0.1-1.3)
[2018-04-13 03:42] LABS: Absolute Lymphocytes (CBC) 2.6 K/uL (0.7-4.9); Absolute Neutrophil 4.7 K/uL (1.8-8.0); Basophils % 0.5 % (0-1.3); Hematocrit 41.1 % (36.0-45.0); Lymphocytes % 32.6 % (15.3-44.8); MCH 29.1 pg (27.0-35.0); MCV 86.7 fL (80-100); MPV 9.6 fL (7.6-11.3); Monocytes % 7.6 % (3.3-12.3); RBC Red Blood Cell Count 4.74 M/uL (3.86-4.86)
[2018-04-13 03:43] LABS: BUN Blood Urea Nitrogen 8 mg/dL (7-18); Bicarbonate 25 mmol/L (21-32); Glucose Level 85 mg/dL (74-106); Lipase 112 U/L (73-393); Phosphorus 5.1 mg/dL (2.5-4.9); Potassium 3.6 mmol/L (3.5-5.1); Sodium Level 140 mmol/L (136-145)
[2018-04-13 04:31] LABS: Urine Blood NEGATIVE (NEG); Urine Glucose NEGATIVE (NEG); Urine Protein NEGATIVE (NEG); Urine Specific Gravity 1.025 (1.005-1.030)
[2018-04-13 04:32] LABS: Urine Culture Reflex Order NOT NEEDED
[2018-04-13 04:34] LABS: Urine Bacteria <20 /HPF (<20); Urine RBC <5 /HPF (NONE SEEN)
[2018-04-13] MEDS ORDERED: KETOROLAC 30 MG/ML INJ ONE (06:02)
[2018-04-13 06:19] LABS: ALT/SGPT 25 U/L (12-78); AST/SGOT 17 U/L (15-37); Albumin 3.3 g/dL (3.4-5.0); Alkaline Phosphatase 73 U/L (45-117); Bilirubin Direct 0.1 mg/dL (0-0.2); Bilirubin Total 0.3 mg/dL (0.2-1.0); Protein, Total 8.4 g/dL (6.4-8.2)
--- NOTE | 2018-04-13 06:46 | ER ---
Nurse's Notes [facility] Name: Letty aHll Age: 22 yrs Sex: Female : 1995 Arrival Date: 04/13/2018 Time: 02:08 Bed 6 Private MD: Radames Myers E Diagnosis: chest pain Presentation: 04/13 02:16 Presenting complaint: Patient states: Reports she started having chest pain around ea 2330, went to [facility] and left without being seen, pt reports she has a calcium deficiency and pain is now traveling down her arm. Transition of care: patient was not received from another setting of care. Onset of symptoms was April 13, 2018. Risk Assessment: Do you want to hurt yourself or someone else? Patient reports no desire to harm self or others. Initial Sepsis Screen: Does the patient meet any 2 criteria? No. Patient's initial sepsis screen is negative. Does the patient have a suspected source of infection? No. Patient's initial sepsis screen is negative. Care prior to arrival: None. 02:16 Method Of Arrival: Wheelchair ea 02:16 Acuity: BHAKTI 3 ea Triage Assessment: 02:16 General: Appears uncomfortable, Behavior is calm, cooperative. Pain: Complains of pain ea in mid-sternal area Pain radiates to anterior aspect of left upper chest, left lateral posterior chest and left breast Pain currently is 8 out of 10 on a pain scale. Quality of pain is described as aching. Neuro: Level of Consciousness is awake, alert, obeys commands, Oriented to person, place, time, situation. Cardiovascular: Heart tones S1 S2 present Patient's skin is warm and dry. Respiratory: Airway is patent Respiratory effort is even, unlabored, Respiratory pattern is regular, symmetrical, Breath sounds are clear bilaterally. Derm: Skin is pink, warm \T\ dry. Musculoskeletal: Circulation, motion, and sensation intact. 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 ea Historical: - Allergies: 02:22 Haldol; ea 02:22 Morphine; ea 02:22 VANCOMYCIN AND DERIVATIVES; ea - Home Meds: 02:22 vitamin d 3 1000 iu 1 tab daily [Active]; Potassium Chloride 75 mg Oral 1 tab daily as ea needed [Active]; calcitrial 0.5 mg 5 tab four times a day [Active]; Diamox Sequels 250mg Oral 1 cap three times a day [Active]; calcium carbonate 500 mg calcium (1,250 mg) Oral tab 2500 mg four times a day [Active]; magnesium oxide 400 mg Oral tab daily [Active]; Klonopin 1 mg Oral tab 1 tab 3 times a day PRN [Active]; Nexplanon implant for Control [Active]; - PMHx: 02:22 Depression; hypocalcemia; hypoparathyroidism; Anxiety; psuedo cranial hypertension; ea Sinus Tachycardia; GERD; - Immunization history:: Adult Immunizations up to date. - Social history:: Smoking status: Patient uses tobacco products, smokes one pack cigarettes per day. - Ebola Screening: : No symptoms or risks identified at this time. Screenin:34 Abuse screen: Denies threats or abuse. Nutritional screening: No deficits noted. ea Tuberculosis screening: No symptoms or risk factors identified. Fall Risk None identified. Assessment: 02:27 General: Appears in no apparent distress. uncomfortable, Behavior is calm, cooperative, rr5 appropriate for age. Pain: Complains of pain in chest Pain radiates to armpit Pain currently is 6 out of 10 on a pain scale. Quality of pain is described as aching, Pain began 2330 yesterday. Neuro: Level of Consciousness is awake, alert, obeys commands, Oriented to person, place, time. Cardiovascular: Capillary refill < 3 seconds Patient's skin is warm and dry. Respiratory: Airway is patent Respiratory effort is even, unlabored, Respiratory pattern is regular, symmetrical. GI: No signs and/or symptoms were reported involving the gastrointestinal system. : No signs and/or symptoms were reported regarding the genitourinary system. EENT: No signs and/or symptoms were reported regarding the EENT system. Derm: No signs and/or symptoms reported regarding the dermatologic system. Musculoskeletal: Capillary refill < 3 seconds, Range of motion: intact in all extremities. 03:02 Reassessment: Patient and/or family updated on plan of care and expected duration. Pain ea level reassessed. Patient is alert, oriented x 3, equal unlabored respirations, skin warm/dry/pink. 03:59 Reassessment: Patient appears in no apparent distress at this time. no complaints made. rr5 feeling relieved pain score of 4/10 Patient states feeling better. Patient states symptoms have improved. 04:48 Reassessment: Patient and/or family updated on plan of care and expected duration. Pain ea level reassessed. Pt resting with eyes closed, respirations even and unlabored. Chest expansions even and symmetrical. 06:16 Reassessment: patient refused for chest xray. rr5 06:49 Reassessment: Patient and/or family updated on plan of care and expected duration. Pain ea level reassessed. Patient is alert, oriented x 3, equal unlabored respirations, skin warm/dry/pink. 07:00 Reassessment: no complaints made discharge instruction explained with no question ask. rr5 Vital Signs: 02:16 BP 130 / 81; Pulse 107; Resp 18; Temp 98.2; Pulse Ox 99% on R/A; Weight 122.47 kg; ea Height 5 ft. 5 in. (165.10 cm); Pain 8/10; 03:10 BP 114 / 61; Pulse 90; Resp 18; Pulse Ox 98% on R/A; ea 04:49 BP 108 / 65; Pulse 95; Resp 16; Pulse Ox 99% ; ea 06:00 BP 101 / 56; Pulse 92; Resp 19; Pulse Ox 96% on R/A; rr5 06:50 BP 105 / 75; Pulse 90; Resp 16; Pulse Ox 99% on R/A; rr5 02:16 Body Mass Index 44.93 (122.47 kg, 165.10 cm) ea ED Course: 02:08 Patient arrived in ED. am2 02:08 Radames Myers MD is Private Physician. am2 02:15 Tessie Ngo, RN is Primary Nurse. ea 02:16 Patient has correct armband on for positive identification. Placed in gown. Bed in low ea position. Call light in reach. Side rails up X2. site monitor on. Pulse ox on. NIBP on. 02:16 Arm band placed on right wrist. Patient placed in an exam room, on a stretcher, on ea hospital monitor, on pulse oximetry. 02:20 Triage completed. ea 02:22 Yee Zavala FNP-C is PHCP. snw 02:22 Radames Fine MD is Attending Physician. snw 02:30 EKG completed in triage. Results shown to MD. ea 02:35 Patient maintains SpO2 saturation greater than 95% on room air. ea 03:03 Inserted saline lock: 20 gauge antecubital area, using aseptic technique. Blood ea collected. 06:12 Note: PT REFUSED EXAM. kw 06:48 No provider procedures requiring assistance completed. ea 07:02 IV discontinued, intact, bleeding controlled, No redness/swelling at site. Pressure rr5 dressing applied. Administered Medications: 03:03 Drug: NS 0.9% 1000 ml Route: IV; Rate: 75 ml/hr; Site: right antecubital; ea 07:00 Follow up: Response: No adverse reaction; IV Status: Completed infusion; IV Intake: rr5 1000ml 05:58 Drug: TORadol 30 mg Route: IVP; Site: right antecubital; ea 07:02 Follow up: Response: No adverse reaction rr5 Intake: 07:00 IV: 1000ml; Total: 1000ml. rr5 Outcome: 06:46 Discharge ordered by . wa 07:02 Discharged to home ambulatory, with family. rr5 07:02 Condition: stable 07:02 Discharge instructions given to patient, family, Instructed on discharge instructions, follow up and referral plans. Demonstrated understanding of instructions, follow-up care. 07:03 Patient left the ED. rr5 Signatures: Yee Zavala, SHIP HARBOR PILOT-C SHIP HARBOR PILOT-Csnw Edna Ken Amanda am2 Tessie Ngo RN RN ea Appiah, William, MD MD wa Roque, Raymond, RN RN rr5 Corrections: (The following items were deleted from the chart) 06:49 03:03 Inserted saline lock: 20 gauge 24 gauge antecubital area, using aseptic ea technique. Blood collected. ea
--- NOTE | 2018-04-13 06:46 | EDPHYS ---
Physician Documentation [facility] Name: Letty Hall Age: 22 yrs Sex: Female : 1995 Arrival Date: 04/13/2018 Time: 02:08 Bed 6 Private MD: Radames Myers E ED Physician Radames Fine HPI: 04/13 02:43 This 22 yrs old Female presents to ER via Wheelchair with complaints of Chest snw Pain. 02:43 The patient or guardian reports chest pain that is located primarily in the substernal snw area. The pain does not radiate. Associated signs and symptoms: The patient has no apparent associated signs or symptoms. The chest pain is described as squeezing. Duration: The patient or guardian reports multiple episodes. Modifying factors: The symptoms are alleviated by nothing. Severity of pain: At its worst the pain was mild moderate. The patient has experienced similar episodes in the past, multiple times. It is unknown whether or not the patient has recently seen a physician. pt states she has Ca under better control now by taking a [place] vitamin and her regular vitamins. Pt states she used to be in the hospital monthly. 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 03/20/2018 ea Historical: - Allergies: 02:22 Haldol; ea 02:22 Morphine; ea 02:22 VANCOMYCIN AND DERIVATIVES; ea - Home Meds: 02:22 vitamin d 3 1000 iu 1 tab daily [Active]; Potassium Chloride 75 mg Oral 1 tab daily as ea needed [Active]; calcitrial 0.5 mg 5 tab four times a day [Active]; Diamox Sequels 250mg Oral 1 cap three times a day [Active]; calcium carbonate 500 mg calcium (1,250 mg) Oral tab 2500 mg four times a day [Active]; magnesium oxide 400 mg Oral tab daily [Active]; Klonopin 1 mg Oral tab 1 tab 3 times a day PRN [Active]; Nexplanon implant for Control [Active]; - PMHx: 02:22 Depression; hypocalcemia; hypoparathyroidism; Anxiety; psuedo cranial hypertension; ea Sinus Tachycardia; GERD; - Immunization history:: Adult Immunizations up to date. - Social history:: Smoking status: Patient uses tobacco products, smokes one pack cigarettes per day. - Ebola Screening: : No symptoms or risks identified at this time. ROS: 02:42 Eyes: Negative for injury, pain, redness, and discharge, ENT: Negative for injury, snw pain, and discharge, Neck: Negative for injury, pain, and swelling. 02:42 Respiratory: Negative for shortness of breath, cough, wheezing, and pleuritic chest pain, Abdomen/GI: Negative for abdominal pain, nausea, vomiting, diarrhea, and constipation, Back: Negative for injury and pain, : Negative for injury, bleeding, discharge, and swelling, MS/Extremity: Negative for injury and deformity, Skin: Negative for injury, rash, and discoloration, Neuro: Negative for headache, weakness, numbness, tingling, and seizure. 02:42 Constitutional: Positive for body aches. 02:42 Cardiovascular: Positive for chest pain, of the mid-sternal area, "feels like low potassium". Exam: 02:42 Constitutional: This is an obese, well nourished patient who is awake, alert, and in snw no acute distress. Head/Face: Normocephalic, atraumatic. Eyes: Pupils equal round and reactive to light, extra-ocular motions intact. Lids and lashes normal. Conjunctiva and sclera are non-icteric and not injected. Cornea within normal limits. Periorbital areas with no swelling, redness, or edema. ENT: Nares patent. No nasal discharge, no septal abnormalities noted. Tympanic membranes are normal and external auditory canals are clear. Oropharynx with no redness, swelling, or masses, exudates, or evidence of obstruction, uvula midline. Mucous membranes moist. Neck: Trachea midline, no thyromegaly or masses palpated, and no cervical lymphadenopathy. Supple, full range of motion without nuchal rigidity, or vertebral point tenderness. No Meningismus. Chest/axilla: Normal chest wall appearance and motion. Nontender with no deformity. No lesions are appreciated. Respiratory: Lungs have equal breath sounds bilaterally, clear to auscultation and percussion. No rales, rhonchi or wheezes noted. No increased work of breathing, no retractions or nasal flaring. Abdomen/GI: Soft, non-tender, with normal bowel sounds. No distension or tympany. No guarding or rebound. No evidence of tenderness throughout. Back: No spinal tenderness. No costovertebral tenderness. Full range of motion. Skin: Warm, dry with normal turgor. Normal color with no rashes, no lesions, and no evidence of cellulitis. MS/ Extremity: Pulses equal, no cyanosis. Neurovascular intact. Full, normal range of motion. Neuro: Awake and alert, GCS 15, oriented to person, place, time, and situation. Cranial nerves II-XII grossly intact. Motor strength 5/5 in all extremities. Sensory grossly intact. Cerebellar exam normal. Normal gait. Psych: Awake, alert, with orientation to person, place and time. Behavior, mood, and affect are within normal limits. 02:42 Cardiovascular: Rate: tachycardic, Rhythm: regular, Pulses: no pulse deficits are appreciated. Vital Signs: 02:16 BP 130 / 81; Pulse 107; Resp 18; Temp 98.2; Pulse Ox 99% on R/A; Weight 122.47 kg; ea Height 5 ft. 5 in. (165.10 cm); Pain 8/10; 03:10 BP 114 / 61; Pulse 90; Resp 18; Pulse Ox 98% on R/A; ea 04:49 BP 108 / 65; Pulse 95; Resp 16; Pulse Ox 99% ; ea 06:00 BP 101 / 56; Pulse 92; Resp 19; Pulse Ox 96% on R/A; rr5 06:50 BP 105 / 75; Pulse 90; Resp 16; Pulse Ox 99% on R/A; rr5 02:16 Body Mass Index 44.93 (122.47 kg, 165.10 cm) ea MDM: 02:30 Patient medically screened. snw 03:06 Data reviewed: vital signs, nurses notes. Data interpreted: Pulse oximetry: on room air snw is 99 %. Interpretation: normal. Transition of care: After a detail discussion of the patient's case, care is transferred to Radames Fine MD. 06:42 Test interpretation: by ED physician or midlevel provider: low calcium at 6.6. wa 06:43 ED course: chest pain resolved. declined CXR. . 06:47 Test interpretation: by ED physician or midlevel provider: HR: 86. normal. no acute wa ischemic change. 04/13 02:21 Order name: Basic Metabolic Panel; Complete Time: 17:13 snw 04/13 02:21 Order name: CBC with Diff; Complete Time: 05:50 snw 04/13 02:21 Order name: Lipase; Complete Time: 17:13 snw 04/13 02:21 Order name: Magnesium; Complete Time: 06:42 snw 04/13 02:21 Order name: Phosphorus; Complete Time: 17:13 snw 04/13 02:29 Order name: Calcium snw 04/13 02:29 Order name: TSH snw 04/13 02:30 Order name: Thyroid Stimulating Hormone; Complete Time: 05:50 EDMS 04/13 02:42 Order name: Urine Culture snw 04/13 02:42 Order name: Urine Microscopic Only; Complete Time: 05:50 snw 04/13 17:15 Interpretation: URBC <5. snw 04/13 03:00 Order name: Urine Dipstick--Ancillary (enter results); Complete Time: 05:50 ms 04/13 03:00 Order name: Urine --Ancillary (enter results); Complete Time: 05:48 ms 04/13 02:21 Order name: IV Saline Lock; Complete Time: 03:04 snw 04/13 02:21 Order name: Labs collected and sent; Complete Time: 03:04 snw 04/13 02:22 Order name: EKG; Complete Time: 02:22 snw 04/13 02:22 Order name: EKG - Nurse/Tech; Complete Time: 02:26 snw 04/13 02:42 Order name: Urine Test (obtain specimen); Complete Time: 03:07 snw 04/13 02:42 Order name: Urine Dipstick-Ancillary (obtain specimen); Complete Time: 03:07 snw 04/13 05:58 Order name: D-Dimer; Complete Time: 17:13 nd 04/13 06:02 Order name: Liver (Hepatic) Function; Complete Time: 06:42 EDMS 04/13 17:15 Interpretation: BILIT 0.3. snw Administered Medications: 03:03 Drug: NS 0.9% 1000 ml Route: IV; Rate: 75 ml/hr; Site: right antecubital; ea 07:00 Follow up: Response: No adverse reaction; IV Status: Completed infusion; IV Intake: rr5 1000ml 05:58 Drug: TORadol 30 mg Route: IVP; Site: right antecubital; ea 07:02 Follow up: Response: No adverse reaction rr5 Disposition: 06:46 Co-signature as Attending Physician, Radames Fine MD I agree with the assessment and nd plan of care. Disposition: 04/13/18 06:46 Discharged to Home. Impression: chest pain. - Condition is Stable. - Medication Reconciliation Form, Thank You Letter, Antibiotic Education, Prescription Opioid Use, Family Work Release form. - Follow up: Private Physician; When: 1 - 2 days; Reason: Recheck today's complaints. - Problem is new. - Symptoms have improved. Signatures: Dispatcher [employer] EDNJ Yee Zavala, SUPERVISOR OF OPERATIONS-C SUPERVISOR OF OPERATIONS-Csnw Tessie Ngo, RN RN Radames Ballard MD MD wa Roque, Raymond, RN RN rr5 Corrections: (The following items were deleted from the chart) 02:24 02:22 CALCIUM+C.LAB.BRZ ordered. EDNJ EDMS 03:21 02:30 Calcium Level ordered. EDNJ EDMS 06:02 05:50 HEPATIC FUNCTION+C.LAB.BRZ ordered. EDNJ EDMS 06:02 05:58 D-DIMER+COAG.LAB.BRZ ordered. EDNJ EDMS 06:13 05:53 Chest Pa And Lat (2 Views)+RAD.RAD.BRZ ordered. EDNJ EDMS 07:03 06:46 04/13/2018 06:46 Discharged to Home. Impression: chest pain. Condition is Stable. rr5 Forms are Medication Reconciliation Form, Thank You Letter, Antibiotic Education, Prescription Opioid Use. Follow up: Private Physician; When: 1 - 2 days; Reason: Recheck today's complaints. Problem is new. Symptoms have improved. wa
--- NOTE | 2018-04-13 12:01 | EKG ---
Test Date: 2018-04-13 Test Time: 02:26:34 Charging Machine Operator: BALTAZAR MEASUREMENT RESULTS: Intervals: Rate: 86 WV: 130 QRSD: 84 QT: 382 QTc: 457 [place]: P: 59 WV: 130 QRS: 37 T: 12 INTERPRETIVE STATEMENTS: Normal sinus rhythm with sinus arrhythmia Cannot rule out Anterior infarct, age undetermined Abnormal ECG No previous ECG available for comparison Electronically Signed On 04-13-18 12:00:23 CHUTE OPERATOR by Thor Burrell
== END 2018-04-13 07:03 | disposition home or self-care (01) ==
LOC: ER 02:07
DX: R07.9 Chest pain, unspecified (principal); R94.31 Abnormal electrocardiogram [ECG] [EKG]; E83.51 Hypocalcemia; E20.9 Hypoparathyroidism, unspecified; F32.9 Major depressive disorder, single episode, unspecified; F41.9 Anxiety disorder, unspecified; G93.2 Benign intracranial hypertension; K21.9 Gastro-esophageal reflux disease without esophagitis; F17.210 Nicotine dependence, cigarettes, uncomplicated; Z79.899 Other long term (current) drug therapy
CPT/HCPCS: 36415; 80048; 80076; 81003; 81015; 81025; 83690; 83735; 84100; 84443; 85025; 85379; 87086; 87088; 93005; 96361; 96374; 99285; J7030

== ENCOUNTER 2018-04-22 13:59 | Emergency (ER) | payer OTHER ==
--- OUTSIDE RECORDS SUMMARY | 2018-04-22 14:02 | XMS REPORT | Clinical Summary ---
:1995 Author Organization [facility] Address [address] [place] [id number] Care Team Providers Name Role Phone Radames [...] complete this topic Results Not on fileafter 04/21/2017 Advance Directives Patient has advance care planning documents, and code status on file. For more information, please contact:Jean Marie [id number] [place] [address] Code Status Date Activated Date Inactivated Comments Full Code 02/15/2017 5:32 PM 02/19/2017 9:55 PM Code Status decision reached by: Patient
--- NOTE | 2018-04-22 15:23 | ER ---
Nurse's Notes [facility] Name: Letty Hall Age: 22 yrs Sex: Female : 1995 Arrival Date: 04/22/2018 Time: 14:03 Bed 28 Private MD: Radames Myers E Diagnosis: Abnormal uterine and vaginal bleeding, unspecified Presentation: 04/22 14:09 Presenting complaint: Patient states: LMP- 03/25/18; yoshi been bleeding since Apr 16 til hj now; orange brown color discharge; denies abd pain; reports lower back pain; denies N/V; denies fever and chills;. Transition of care: patient was not received from another setting of care. Onset of symptoms was April 22, 2018. Risk Assessment: Do you want to hurt yourself or someone else? Patient reports no desire to harm self or others. Initial Sepsis Screen: Does the patient meet any 2 criteria? No. Patient's initial sepsis screen is negative. Does the patient have a suspected source of infection? No. Patient's initial sepsis screen is negative. Care prior to arrival: None. 14:09 Method Of Arrival: Ambulatory 14:09 Acuity: BHAKTI 3 hj Triage Assessment: 14:13 General: Appears in no apparent distress. uncomfortable, Behavior is calm, cooperative, hj appropriate for age. Pain: Complains of pain in back. : Reports vaginal bleeding that is. 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 - Social history:: Smoking status: Patient/guardian denies using tobacco, Patient/guardian denies using alcohol. - Ebola Screening: : Patient negative for fever greater than or equal to 101.5 degrees Fahrenheit, and additional compatible Ebola Virus Disease symptoms Patient denies exposure to infectious person Patient denies travel to an Ebola-affected area in the 21 days before illness onset. Screenin:14 Abuse screen: Denies threats or abuse. Denies injuries from another. Nutritional hj screening: No deficits noted. Tuberculosis screening: No symptoms or risk factors identified. Fall Risk None identified. Assessment: 15:31 General: Appears in no apparent distress. comfortable. Pain: Denies pain. Neuro: No mg2 deficits noted. Cardiovascular: Capillary refill < 3 seconds Patient's skin is warm and dry. Respiratory: Airway is patent Respiratory effort is even, unlabored, Respiratory pattern is regular, symmetrical. GI: No signs and/or symptoms were reported involving the gastrointestinal system. : Reports vaginal bleeding that is spotty. EENT: No signs and/or symptoms were reported regarding the EENT system. Derm: Skin is intact, is healthy with good turgor, Skin is pink, warm \T\ dry. normal. Musculoskeletal: No deficits noted. 15:33 Reassessment: patient refused for investigations/treatments. discussed with the mg2 provider. 15:34 Obstetrical Assessment: NA-urine preg test negative. mg2 Vital Signs: 14:14 BP 151 / 89; Pulse 115; Resp 18; Temp 97.5(TE); Pulse Ox 97% on R/A; Weight 122.92 kg; hj Height 5 ft. 5 in. (165.10 cm); Pain 4/10; 14:14 Body Mass Index 45.10 (122.92 kg, 165.10 cm) Vitals: 15:33 Heart Tones negative preg test. mg2 ED Course: 14:03 Patient arrived in ED. mr 14:04 Radames Myers MD is Private Physician. mr 14:12 Triage completed. hj 14:14 Arm band placed on left wrist. hj 14:14 Patient has correct armband on for positive identification. Placed in gown. Bed in low hj position. Call light in reach. 14:56 Zi Oconnor PA is PHCP. cp 14:56 Danyel Up MD is Attending Physician. cp 15:05 Buddy Braun RN is Primary Nurse. mg2 15:21 Tyrell Ruffin MD is Referral Physician. cp 15:32 No provider procedures requiring assistance completed. Patient did not have IV access mg2 during this emergency room visit. Administered Medications: No medications were administered Point of Care Testing: Urine : 15:34 hCG Reading: Negative; mg2 Outcome: 15:23 Discharge ordered by MD. cp 15:33 Discharged to home ambulatory. mg2 15:33 Condition: good 15:33 Discharge instructions given to patient, Instructed on discharge instructions, follow up and referral plans. Demonstrated understanding of instructions, follow-up care. 15:37 Patient left the ED. mg2 Signatures: Zeinab Pimentel Danish Martini RN RN hj Zi Oconnor PA PA cp [place], Michele, RN RN mg2 Corrections: (The following items were deleted from the chart) 14:12 14:09 Presenting complaint: Patient states: LMP- 18; yoshi been bleeding since Apr hj 7 til now; orange brown color discharge; reports lower back pain; denies N/V; denies fever and chills; hj 14:16 14:14 122.92 kg; Height 5 ft. 5 in.; BMI: 45.1; Pain 4/10; hj hj 14:18 14:14 Pulse 115bpm; Resp 18bpm; Pulse Ox 97% RA; Temp 97.5F Temporal; 122.92 kg; Height hj 5 ft. 5 in.; BMI: 45.1; Pain 4/10; hj
--- NOTE | 2018-04-22 15:24 | EDPHYS ---
Physician Documentation [facility] Name: Letty Hall Age: 22 yrs Sex: Female : 1995 Arrival Date: 04/22/2018 Time: 14:03 Bed 28 Private MD: Radames Myers E ED Physician Danyel Up HPI: 04/22 15:10 This 22 yrs old Female presents to ER via Ambulatory with complaints of cp Vaginal Bleeding, + Preg <12wks, Back Pain. 15:10 The patient presents with vaginal bleeding that is light. Onset: The symptoms/episode cp began/occurred 1 week(s) ago. 15:10 Associated signs and symptoms: Pertinent positives: low back pain. Severity of cp symptoms: in the emergency department the symptoms are unchanged, despite home interventions. The patient is sexually active, reportedly has a single partner, does not use protection during intercourse. The patient's method of control includes nothing. 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 - Social history:: Smoking status: Patient/guardian denies using tobacco, Patient/guardian denies using alcohol. - Ebola Screening: : Patient negative for fever greater than or equal to 101.5 degrees Fahrenheit, and additional compatible Ebola Virus Disease symptoms Patient denies exposure to infectious person Patient denies travel to an Ebola-affected area in the 21 days before illness onset. ROS: 15:15 Constitutional: Negative for body aches, chills, fever, poor PO intake. cp 15:15 Eyes: Negative for injury, pain, redness, and discharge. cp 15:15 ENT: Negative for drainage from ear(s), ear pain, sore throat, difficulty swallowing, difficulty handling secretions. 15:15 Cardiovascular: Negative for chest pain, edema, palpitations. 15:15 Respiratory: Negative for cough, shortness of breath, wheezing. 15:15 Abdomen/GI: Negative for abdominal pain, vomiting, diarrhea, constipation, black/tarry stool, rectal bleeding. 15:15 Back: Positive for pain at rest, of the low back. 15:15 : Positive for vaginal bleeding, Negative for urinary symptoms. 15:15 Skin: Negative for cellulitis, rash. 15:15 Neuro: Negative for altered mental status, headache, weakness. 15:15 All other systems are negative. Exam: 15:18 Constitutional: The patient appears in no acute distress, alert, awake, non-toxic, well cp developed, well nourished. 15:18 Head/Face: Normocephalic, atraumatic. cp 15:18 Eyes: Periorbital structures: appear normal, Conjunctiva: normal, no exudate, no injection, Sclera: no appreciated abnormality, Lids and lashes: appear normal, bilaterally. 15:18 ENT: External ear(s): are unremarkable, Nose: is normal, Mouth: Lips: moist, Oral mucosa: moist, Posterior pharynx: is normal, airway is patent, no erythema, no exudate. 15:18 Chest/axilla: Inspection: normal, Palpation: is normal, no crepitus, no tenderness. 15:18 Cardiovascular: Rate: tachycardic, Rhythm: regular. 15:18 Respiratory: the patient does not display signs of respiratory distress, Respirations: normal, no use of accessory muscles, no retractions, no splinting, no tachypnea, labored breathing, is not present, Breath sounds: are clear throughout, no decreased breath sounds, no stridor, no wheezing. 15:18 Abdomen/GI: Inspection: abdomen appears normal, Bowel sounds: active, all quadrants, Palpation: abdomen is soft and non-tender, in all quadrants, rebound tenderness, is not appreciated, voluntary guarding, is not appreciated, involuntary guarding, is not appreciated. 15:18 Back: pain, that is very mild, of the low back area, ROM is normal, CVA tenderness, is absent. 15:18 Skin: cellulitis, is not appreciated, no rash present. 15:18 Neuro: Orientation: to person, place \T\ time. Mentation: is normal, Cerebellar function: is grossly normal, Motor: moves all fours, strength is normal, Sensation: is normal, Gait: is steady. Vital Signs: 14:14 BP 151 / 89; Pulse 115; Resp 18; Temp 97.5(TE); Pulse Ox 97% on R/A; Weight 122.92 kg; hj Height 5 ft. 5 in. (165.10 cm); Pain 4/10; 14:14 Body Mass Index 45.10 (122.92 kg, 165.10 cm) hj MDM: 15:00 Patient medically screened. cp 15:00 Differential diagnosis: ectopic , ovarian cyst, pelvic inflammatory disease, cp urinary tract infection, vaginosis. 15:22 Data reviewed: vital signs, nurses notes, lab test result(s), urinalysis. cp 15:22 Refusal of service: The patient/guardian displays adequate decision making capability cp and despite a detailed discussion of alternatives, benefits, risks, and consequences refuses: all lab tests, US. 04/22 15:08 Order name: Urine Dipstick--Ancillary (enter results) 04/22 14:33 Order name: Urine Dipstick-Ancillary (obtain specimen); Complete Time: 15:27 04/22 14:33 Order name: Urine Test (obtain specimen); Complete Time: 15:27 04/22 15:07 Order name: IV Saline Lock 04/22 15:07 Order name: Labs collected and sent 04/22 15:07 Order name: NPO 04/22 15:08 Order name: Urine --Ancillary (enter results) bd Administered Medications: No medications were administered Point of Care Testing: Urine : 15:34 hCG Reading: Negative; mg2 Disposition: 18:37 Co-signature as Attending Physician, Danyel Up MD I agree with the assessment and kdr plan of care. Disposition: 04/22/18 15:23 Discharged to Home. Impression: Abnormal uterine and vaginal bleeding, unspecified. - Condition is Stable. - Discharge Instructions: Abnormal Uterine Bleeding, Dysfunctional Uterine Bleeding. - Medication Reconciliation Form, Thank You Letter, Antibiotic Education, Prescription Opioid Use form. - Follow up: Tyrell Ruffin MD; When: next week; Reason: Recheck today's complaints. - Problem is new. - Symptoms are unchanged. Signatures: Dispatcher [employer] EDMS Danyel Up MD MD kdr Danish Martini RN RN hj Zi Oconnor PA PA cp Gardose, Michele, RN RN mg2 Corrections: (The following items were deleted from the chart) 15:37 15:23 04/22/2018 15:23 Discharged to Home. Impression: Abnormal uterine and vaginal mg2 bleeding, unspecified. Condition is Stable. Forms are Medication Reconciliation Form, Thank You Letter, Antibiotic Education, Prescription Opioid Use. Follow up: Tyrell Ruffin; When: next week; Reason: Recheck today's complaints. Problem is new. Symptoms are unchanged. cp
[2018-04-22 16:19] LABS: Urine Blood TRACE (NEG); Urine Glucose NEGATIVE (NEG); Urine Protein 1+ (NEG); Urine pH 7.5 (5.0-7.0)
== END 2018-04-22 15:37 | disposition home or self-care (01) ==
LOC: ER 13:59
DX: N93.9 Abnormal uterine and vaginal bleeding, unspecified (principal); I10 Essential (primary) hypertension; F41.9 Anxiety disorder, unspecified; F32.9 Major depressive disorder, single episode, unspecified; K21.9 Gastro-esophageal reflux disease without esophagitis; Z88.3 Allergy status to other anti-infective agents; Z88.5 Allergy status to narcotic agent
CPT/HCPCS: 81003; 81025; 99283

== ENCOUNTER 2018-10-28 20:19 | Emergency (ER) | payer OTHER, SELFPAY ==
--- OUTSIDE RECORDS SUMMARY | 2018-10-28 20:20 | XMS REPORT | Clinical Summary ---
:[address] [facility] Address [address] [place] [address] Care Team Providers Name Role Phone Radames [...] Date Last Done Comments CHLAMYDIA SCREENING 2011 INFLUENZA VACCINE 12/09/2018 Results Not on fileafter 10/27/2017 Advance Directives Patient has advance care planning documents, and code status on file. For more information, please contact:[facility] [place] [address] Code Status Date Activated Date Inactivated Comments Full Code 02/15/2017 5:32 PM 02/19/2017 9:55 PM Code Status decision reached by: Patient
--- OUTSIDE RECORDS SUMMARY | 2018-10-28 20:20 | XMS REPORT ---
:1995 [facility] Address [address] [place] [address] Dr. Gardner [address] [place] [id number] Care Team Providers Name Role Phone Unavailable Unavailable Unavailable Problems This patient has no known problems. Allergies, Adverse Reactions, Alerts This patient has no known allergies or adverse reactions. Medications This patient has no known medications.
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
[2018-10-28 21:17] LABS: Urine Bacteria <20 /HPF (<20); Urine Culture Reflex Order NOT NEEDED; Urine Mucus MOD /HPF (NONE SEEN); Urine RBC NONE SEEN /HPF (NONE SEEN)
--- NOTE | 2018-10-28 21:26 | ER ---
Nurse's Notes [facility] Name: Letty Hall Age: 23 yrs Sex: Female : 1995 Arrival Date: 10/28/2018 Time: 20:22 Bed 14 Private MD: Radames Myers E Diagnosis: Nausea and vomiting Presentation: 10/28 20:28 Presenting complaint: Patient states: Vomiting since yesterday, lower back pain. aj1 Transition of care: patient was not received from another setting of care. Onset of symptoms was October 27, 2018. Risk Assessment: Do you want to hurt yourself or someone else? Patient reports no desire to harm self or others. Initial Sepsis Screen: Does the patient meet any 2 criteria? No. Patient's initial sepsis screen is negative. Does the patient have a suspected source of infection? No. Patient's initial sepsis screen is negative. Care prior to arrival: None. 20:28 Method Of Arrival: Ambulatory aj1 20:28 Acuity: BHAKTI 3 aj1 Triage Assessment: 20:30 General: Appears in no apparent distress. comfortable, Behavior is calm, cooperative, aj1 agitated. Pain: Complains of pain in low back area Pain currently is 3 out of 10 on a pain scale. Neuro: Level of Consciousness is awake, alert, obeys commands, Oriented to person, time, situation. Cardiovascular: Patient's skin is warm and dry. Respiratory: Airway is patent Respiratory effort is even, unlabored, Respiratory pattern is regular, symmetrical. GI: Reports nausea, vomiting. 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 - Social history:: Smoking status: Patient uses tobacco products, smokes one pack cigarettes per day. - Ebola Screening: : Patient denies travel to an Ebola-affected area in the 21 days before illness onset. Screenin:56 Abuse screen: Denies threats or abuse. Nutritional screening: No deficits noted. jb4 Tuberculosis screening: No symptoms or risk factors identified. Fall Risk None identified. Assessment: 20:55 General: Appears in no apparent distress. comfortable, Behavior is calm, cooperative, jb4 appropriate for age. Pain: Complains of pain in low back area Pain does not radiate. Pain currently is 4 out of 10 on a pain scale. Quality of pain is described as sharp, Pain began 1 day ago. Neuro: Level of Consciousness is awake, alert, obeys commands, Oriented to person, place, time, situation. Cardiovascular: Patient's skin is warm and dry. Respiratory: Airway is patent Respiratory effort is even, unlabored, Respiratory pattern is regular, symmetrical. GI: Abdomen is non-distended, obese, Bowel sounds present X 4 quads. Abd is soft and non tender X 4 quads. : No signs and/or symptoms were reported regarding the genitourinary system. EENT: No signs and/or symptoms were reported regarding the EENT system. Derm: Skin is intact, Skin is pink, warm \T\ dry. Musculoskeletal: Circulation, motion, and sensation intact. 21:42 Reassessment: Patient appears in no apparent distress at this time. Patient and/or jb4 family updated on plan of care and expected duration. Pain level reassessed. Patient is alert, oriented x 3, equal unlabored respirations, skin warm/dry/pink. Pt ambulated out of the ED with steady gate, verbalized understanding of d/c and follow up instructions. Vital Signs: 20:30 BP 131 / 82; Pulse 110; Resp 18; Temp 97.2; Pulse Ox 97% on R/A; Weight 113.4 kg (R); aj1 Height 5 ft. 5 in. (165.10 cm) (R); 21:30 BP 110 / 59; Pulse 87; Resp 16; Pulse Ox 96% on R/A; jb4 20:30 Body Mass Index 41.60 (113.40 kg, 165.10 cm) aj1 ED Course: 20:22 Patient arrived in ED. es 20:22 Radames Myers MD is Private Physician. es 20:25 [facility]ee Zavala F[facility]-C [facility]. snw 20:25 Zi Cerna MD is Attending Physician. snw 20:30 Triage completed. aj1 20:30 Arm band placed on Patient placed in an exam room. aj1 20:34 Cameron Boston, RN is Primary Nurse. jb4 20:56 Patient has correct armband on for positive identification. Bed in low position. Call jb4 light in reach. Side rails up X 1. Pulse ox on. NIBP on. 21:26 Radames Myers MD is Referral Physician. snw 21:30 No provider procedures requiring assistance completed. Patient did not have IV access jb4 during this emergency room visit. Administered Medications: 21:40 Drug: Phenergan 25 mg Route: IM; Site: right gluteus; jb4 21:48 Follow up: Response: No adverse reaction; Medication administered at discharge. jb4 Outcome: 21:26 Discharge ordered by . snw 21:44 Discharged to home ambulatory, with family. jb4 21:44 Condition: stable 21:44 Discharge instructions given to patient, Instructed on discharge instructions, follow up and referral plans. medication usage, Demonstrated understanding of instructions, follow-up care, medications, Prescriptions given X 1. 21:49 Patient left the ED. jb4 Signatures: Martha Patel RN RN aj1 Yee Zavala FNP-C GAME BREEDING FARM MANAGER-Csnw Melissa Molina James, RN RN jb4 Corrections: (The following items were deleted from the chart) 21:44 21:30 Discharged to home ambulatory, with family, jb4 jb4 21:44 21:30 Condition: stable jb4 jb4 21:44 21:30 Discharge instructions given to patient, Instructed on discharge instructions, jb4 follow up and referral plans. medication usage, Demonstrated understanding of instructions, follow-up care, medications, Prescriptions given X 1, jb4 21:48 21:42 Reassessment: Patient appears in no apparent distress at this time. Patient jb4 and/or family updated on plan of care and expected duration. Pain level reassessed. Patient is alert, oriented x 3, equal unlabored respirations, skin warm/dry/pink. jb4
--- NOTE | 2018-10-28 21:26 | EDPHYS ---
Physician Documentation [facility] Name: Letty Hall Age: 23 yrs Sex: Female : 1995 Arrival Date: 10/28/2018 Time: 20:22 Bed 14 Private MD: Radames Myers E ED Physician Zi Cerna HPI: 10/28 20:44 This 23 yrs old Female presents to ER via Ambulatory with complaints of snw Vomiting, 14 days late. 20:44 The patient presents to the emergency department with nausea, vomiting, since last pm. snw Onset: The symptoms/episode began/occurred suddenly, yesterday. Possible causes: unknown. The symptoms are aggravated by Smell. Associated signs and symptoms: The patient has no apparent associated signs or symptoms. Severity of symptoms: At their worst the symptoms were moderate. The patient has not experienced similar symptoms in the past. The patient has not recently seen a physician. Pt states everything "smells funny". 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 - Social history:: Smoking status: Patient uses tobacco products, smokes one pack cigarettes per day. - Ebola Screening: : Patient denies travel to an Ebola-affected area in the 21 days before illness onset. ROS: 20:44 Constitutional: Negative for fever, chills, and weight loss, Eyes: Negative for injury, snw pain, redness, and discharge, ENT: Negative for injury, pain, and discharge, Neck: Negative for injury, pain, and swelling, Cardiovascular: Negative for chest pain, palpitations, and edema, Respiratory: Negative for shortness of breath, cough, wheezing, and pleuritic chest pain, Back: Negative for injury and pain, : Negative for injury, bleeding, discharge, and swelling, MS/Extremity: Negative for injury and deformity, Skin: Negative for injury, rash, and discoloration, Neuro: Negative for headache, weakness, numbness, tingling, and seizure. 20:44 Abdomen/GI: Positive for nausea and vomiting. Exam: 20:45 Constitutional: This is a well developed, well nourished patient who is awake, alert, snw and in no acute distress. Head/Face: Normocephalic, atraumatic. Eyes: Pupils equal round and reactive to light, extra-ocular motions intact. Lids and lashes normal. Conjunctiva and sclera are non-icteric and not injected. Cornea within normal limits. Periorbital areas with no swelling, redness, or edema. ENT: Nares patent. No nasal discharge, no septal abnormalities noted. Tympanic membranes are normal and external auditory canals are clear. Oropharynx with no redness, swelling, or masses, exudates, or evidence of obstruction, uvula midline. Mucous membranes moist. Neck: Trachea midline, no thyromegaly or masses palpated, and no cervical lymphadenopathy. Supple, full range of motion without nuchal rigidity, or vertebral point tenderness. No Meningismus. Chest/axilla: Normal chest wall appearance and motion. Nontender with no deformity. No lesions are appreciated. Respiratory: Lungs have equal breath sounds bilaterally, clear to auscultation and percussion. No rales, rhonchi or wheezes noted. No increased work of breathing, no retractions or nasal flaring. Abdomen/GI: Soft, non-tender, with normal bowel sounds. No distension or tympany. No guarding or rebound. No evidence of tenderness throughout. Back: No spinal tenderness. No costovertebral tenderness. Full range of motion. Skin: Warm, dry with normal turgor. Normal color with no rashes, no lesions, and no evidence of cellulitis. MS/ Extremity: Pulses equal, no cyanosis. Neurovascular intact. Full, normal range of motion. Neuro: Awake and alert, GCS 15, oriented to person, place, time, and situation. Cranial nerves II-XII grossly intact. Motor strength 5/5 in all extremities. Sensory grossly intact. Cerebellar exam normal. Normal gait. Psych: Awake, alert, with orientation to person, place and time. Behavior, mood, and affect are within normal limits. 20:45 Cardiovascular: Rate: tachycardic, Heart sounds: normal. Vital Signs: 20:30 BP 131 / 82; Pulse 110; Resp 18; Temp 97.2; Pulse Ox 97% on R/A; Weight 113.4 kg (R); aj1 Height 5 ft. 5 in. (165.10 cm) (R); 21:30 BP 110 / 59; Pulse 87; Resp 16; Pulse Ox 96% on R/A; jb4 20:30 Body Mass Index 41.60 (113.40 kg, 165.10 cm) aj1 MDM: 20:35 Patient medically screened. sandy 21:26 Data reviewed: vital signs, nurses notes. Data interpreted: Pulse oximetry: on room air snw is 97 %. Interpretation: normal. Counseling: I had a detailed discussion with the patient and/or guardian regarding: the historical points, exam findings, and any diagnostic results supporting the discharge/admit diagnosis, lab results, the need for outpatient follow up, to return to the emergency department if symptoms worsen or persist or if there are any questions or concerns that arise at home. Special discussion: Based on the patient's Hx, exam, and Dx evaluation, there is no indication for emergent surgery or inpatient Tx. It is understood by the patient/guardian that if the Sx's persist or worsen they need to return immediately for re-evaluation. Based on the history and exam findings, there is no indication for further emergent testing or inpatient evaluation. I discussed with the patient/guardian the need to see the primary care provider for further evaluation of the symptoms. 10/28 20:25 Order name: Urine Culture snw 10/28 20:25 Order name: Urine Microscopic Only; Complete Time: 21:21 snw 10/28 20:25 Order name: Urine Test (obtain specimen); Complete Time: 20:45 snw 10/28 21:43 Order name: Urine Dipstick--Ancillary (enter results) [facility] 10/28 21:43 Order name: Urine --Ancillary (enter results) [facility] 10/28 20:25 Order name: Urine Dipstick-Ancillary (obtain specimen); Complete Time: 20:45 snw Administered Medications: 21:40 Drug: Phenergan 25 mg Route: IM; Site: right gluteus; jb4 21:48 Follow up: Response: No adverse reaction; Medication administered at discharge. jb4 Disposition: 10/29 13:59 Co-signature as Attending Physician, Zi Cerna MD I agree with the assessment and sandy plan of care. Disposition: 10/28/18 21:26 Discharged to Home. Impression: Nausea and vomiting. - Condition is Stable. - Discharge Instructions: Dysmenorrhea, Nausea and Vomiting, Adult, Rehydration, Adult. - Prescriptions for Zofran 4 mg Oral Tablet - take 1 tablet by ORAL route every 12 hours As needed; 20 tablet. - Work release form, Medication Reconciliation Form, Thank You Letter, Antibiotic Education, Prescription Opioid Use form. - Follow up: Radames Myers MD; When: 1 - 2 days; Reason: Recheck today's complaints, Continuance of care, Re-evaluation by your physician. Follow up: Emergency Department; When: As needed; Reason: Worsening of condition. Signatures: Dispatcher [employer] EDMS Martha Patel RN RN aj1 Zi Cerna MD MD cha Therrien, Shelly, ECHO VASCULAR TECH-C ECHO VASCULAR TECH-Csnw Cameron Boston RN RN jb4 Corrections: (The following items were deleted from the chart) 10/28 21:49 21:26 10/28/2018 21:26 Discharged to Home. Impression: Nausea and vomiting. Condition jb4 is Stable. Forms are Medication Reconciliation Form, Thank You Letter, Antibiotic Education, Prescription Opioid Use. Follow up: Radames Myers; When: 1 - 2 days; Reason: Recheck today's complaints, Continuance of care, Re-evaluation by your physician. Follow up: Emergency Department; When: As needed; Reason: Worsening of condition. snw
[2018-10-28] MEDS ORDERED: PROMETHAZINE 25 MG/ML VIAL ONE (21:50)
[2018-10-28 22:23] LABS: Urine Blood NEGATIVE (NEG); Urine Glucose NEGATIVE (NEG); Urine Protein NEGATIVE (NEG); Urine Specific Gravity >1.030 (1.005-1.030)
== END 2018-10-28 21:49 | disposition home or self-care (01) ==
LOC: ER 20:19
DX: R11.2 Nausea with vomiting, unspecified (principal); I10 Essential (primary) hypertension; F41.9 Anxiety disorder, unspecified; F32.9 Major depressive disorder, single episode, unspecified; F17.210 Nicotine dependence, cigarettes, uncomplicated; Z88.3 Allergy status to other anti-infective agents; Z88.5 Allergy status to narcotic agent
CPT/HCPCS: 81003; 81015; 81025; 87086; 87088; 96372; 99283; J2550

== ENCOUNTER 2018-11-04 22:00 | Emergency (ER) | payer SELFPAY ==
--- OUTSIDE RECORDS SUMMARY | 2018-11-04 22:02 | XMS REPORT | Clinical Summary ---
:1995 Author Organization [facility] Address [address] [place] [address] Care Team Providers Name Role Phone Radames [...] INFLUENZA VACCINE 12/09/2018 Results Not on fileafter 11/03/2017 Advance Directives Patient has advance care planning documents, and code status on file. For more information, please contact:[facility] [place] [address] Code Status Date Activated Date Inactivated Comments Full Code 02/15/2017 5:32 PM 02/19/2017 9:55 PM Code Status decision reached by: Patient
--- OUTSIDE RECORDS SUMMARY | 2018-11-04 22:02 | XMS REPORT ---
:1995 [facility] Address [address] [place] [address] Dr. Gardner [address] [place] [id number] Care Team Providers Name Role Phone Unavailable Unavailable Unavailable Problems This patient has no known problems. Allergies, Adverse Reactions, Alerts This patient has no known allergies or adverse reactions. Medications This patient has no known medications.
[2018-11-04 23:05] LABS: Absolute Lymphocytes (CBC) 2.5 K/uL (0.7-4.9); Basophils % 1.1 % (0-1.3); Eosinophils % 0.6 % (0-4.4); Hematocrit 40.7 % (36.0-45.0); Lymphocytes % 19.8 % (15.3-44.8); MPV 9.7 fL (7.6-11.3); Monocytes % 5.5 % (3.3-12.3); RBC Red Blood Cell Count 4.77 M/uL (3.86-4.86)
[2018-11-04] MEDS ORDERED: NA CHLORIDE 0.9% 1,000 ML ONE (23:34)
[2018-11-04 23:44] LABS: ALT/SGPT 20 U/L (12-78); AST/SGOT 12 U/L (15-37); Albumin 3.3 g/dL (3.4-5.0); Alkaline Phosphatase 81 U/L (45-117); BUN Blood Urea Nitrogen 13 mg/dL (7-18); Bicarbonate 29 mmol/L (21-32); Bilirubin Direct < 0.1 mg/dL (0-0.2); Bilirubin Total 0.3 mg/dL (0.2-1.0); Glucose Level 102 mg/dL (74-106); Lipase 157 U/L (73-393); Potassium 3.3 mmol/L (3.5-5.1); Protein, Total 8.5 g/dL (6.4-8.2); Sodium Level 140 mmol/L (136-145)
[2018-11-05] MEDS ORDERED: LORAZEPAM 1 MG TABLET ONE (00:01)
[2018-11-05 00:36] LABS: Urine Blood 2+ (NEG); Urine Glucose NEGATIVE (NEG); Urine Protein TRACE (NEG); Urine pH 7.5 (5.0-7.0)
[2018-11-05 00:40] LABS: Urine Bacteria 20-50 /HPF (<20); Urine Culture Reflex Order REFLEXED; Urine RBC NONE SEEN /HPF (NONE SEEN)
--- NOTE | 2018-11-05 01:12 | ER ---
Nurse's Notes [facility] Name: Letty Hall Age: 23 yrs Sex: Female : 1995 Arrival Date: 11/04/2018 Time: 22:02 Bed 19 Private MD: Diagnosis: Urinary tract infection, site not specified;Hypocalcemia;Influenza due to certain identified influenza viruses-Influenza B Presentation: 11/04 22:15 Presenting complaint: Patient states: Body aches and "burning sensation". Fever, nausea tl2 started today. Transition of care: patient was not received from another setting of care. Onset of symptoms was November 04, 2018. Risk Assessment: Do you want to hurt yourself or someone else? Patient reports no desire to harm self or others. Initial Sepsis Screen: Does the patient meet any 2 criteria? HR > 90 bpm. Does the patient have a suspected source of infection? No. Patient's initial sepsis screen is negative. Care prior to arrival: None. 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 - Social history:: Smoking status: Patient uses tobacco products, smokes one pack cigarettes per day. - Ebola Screening: : No symptoms or risks identified at this time. Screenin:17 Abuse screen: Denies threats or abuse. Nutritional screening: No deficits noted. tl2 Tuberculosis screening: No symptoms or risk factors identified. Fall Risk None identified. Assessment: 22:45 General: Appears in no apparent distress. uncomfortable, Behavior is calm, cooperative, jb4 appropriate for age. Pain: Complains of pain in low back area, right lower quadrant, left lower quadrant, right calf and left calf Pain does not radiate. Pain currently is 6.5 out of 10 on a pain scale. Quality of pain is described as burning. Neuro: Level of Consciousness is awake, alert, obeys commands, Oriented to person, place, time, situation. Cardiovascular: Patient's skin is warm and dry. Respiratory: Airway is patent Respiratory effort is even, unlabored, Respiratory pattern is regular, symmetrical. GI: Abdomen is non-distended, obese, Bowel sounds present X 4 quads. Abd is soft X 4 quads Abd is non tender in epigastric area, umbilical area, suprapubic area, right upper quadrant, right lower quadrant and left lower quadrant Abdomen is tender to palpation in left upper quadrant Reports lower abdominal pain, diarrhea, nausea. : No signs and/or symptoms were reported regarding the genitourinary system. EENT: No signs and/or symptoms were reported regarding the EENT system. Derm: Skin is intact, Skin is pink, warm \\T\\ dry. Musculoskeletal: Circulation, motion, and sensation intact. 11/05 00:00 Reassessment: Patient appears in no apparent distress at this time. Patient and/or jb4 family updated on plan of care and expected duration. Pain level reassessed. Patient is alert, oriented x 3, equal unlabored respirations, skin warm/dry/pink. back from CT Patient states feeling better. 01:00 Reassessment: Patient appears in no apparent distress at this time. Patient and/or jb4 family updated on plan of care and expected duration. Pain level reassessed. Patient is alert, oriented x 3, equal unlabored respirations, skin warm/dry/pink. Patient states feeling better. 01:48 Reassessment: Patient appears in no apparent distress at this time. Patient and/or jb4 family updated on plan of care and expected duration. Pain level reassessed. Patient is alert, oriented x 3, equal unlabored respirations, skin warm/dry/pink. 02:17 Reassessment: Patient appears in no apparent distress at this time. Patient and/or jb4 family updated on plan of care and expected duration. Pain level reassessed. Patient is alert, oriented x 3, equal unlabored respirations, skin warm/dry/pink. PT and mother verbalized understanding of d/c and follow up instructions, denies questions or concerns, ambulated out of ED with steady gait. belongings with pt. Vital Signs: 11/04 22:16 BP 141 / 80; Pulse 132; Resp 20; Temp 98.7(O); Pulse Ox 97% on R/A; Weight 122.47 kg; tl2 Height 5 ft. 5 in. (165.10 cm); Pain 6/10; 23:00 BP 121 / 67; Pulse 122; Resp 18; Pulse Ox 97% on R/A; jb4 11/05 00:15 BP 124 / 76; Pulse 112; Resp 18; Pulse Ox 98% on R/A; jb4 01:45 BP 125 / 72; Pulse 108; Resp 15; Temp 98.5(O); Pulse Ox 97% on R/A; ag4 11/04 22:16 Body Mass Index 44.93 (122.47 kg, 165.10 cm) tl2 ED Course: 11/04 22:02 Patient arrived in ED. mr 22:16 Triage completed. tl2 22:16 Arm band placed on right wrist. tl2 22:25 Satya Max NP is PHCP. pm1 22:25 Zi Cerna MD is Attending Physician. pm1 22:28 Cameron Boston, NYA is Primary Nurse. jb4 22:41 Radiology exam delayed due to lab results not completed at this time. (BUN/Creatinine) vm2 test not completed at this time. 22:45 Initial lab(s) drawn, by me, sent to lab. Urine collected: clean catch specimen, jb4 cloudy, david colored. Inserted saline lock: 20 gauge in right antecubital area, using aseptic technique. Blood collected. 23:00 Patient has correct armband on for positive identification. Bed in low position. Call jb4 light in reach. Side rails up X 1. Pulse ox on. NIBP on. 11/05 00:40 CT Abd/Pelvis - IV Contrast Only In Process Unspecified. EDMS 00:46 CT completed. Patient tolerated procedure well. Patient moved to CT via stretcher. Patient moved back from CT. 02:17 No provider procedures requiring assistance completed. IV discontinued, intact, jb4 bleeding controlled, No redness/swelling at site. Administered Medications: 11/04 23:26 Drug: NS 0.9% 1000 ml Route: IV; Rate: 1000 ml; Site: right antecubital; jb4 11/05 00:40 Follow up: Response: No adverse reaction; IV Status: Completed infusion; IV Intake: jb4 1000ml 11/04 23:42 Not Given (Physician Discretion): Ativan 1 mg IVP once pm1 23:52 Drug: Ativan 1 mg Route: PO; jb4 11/05 00:20 Follow up: Response: No adverse reaction; Marked relief of symptoms jb4 01:40 Drug: Rocephin 1 grams Route: IV; Rate: calculated rate; Site: right antecubital; jb4 01:42 Follow up: Response: No adverse reaction; IV Status: Completed infusion; IV Intake: [id number] Intake: 00:40 IV: 1000ml; Total: 1000ml. jb4 01:42 IV: 10ml; Total: 1010ml. jb4 Outcome: 01:11 Discharge ordered by MD. pm1 02:17 Discharged to home ambulatory, with family. jb4 02:17 Condition: stable 02:17 Discharge instructions given to patient, family, Instructed on discharge instructions, follow up and referral plans. medication usage, Demonstrated understanding of instructions, follow-up care, medications, Prescriptions given X 2. 02:19 Patient left the ED. jb4 Signatures: Dispatcher [employer] Zeinab Maria Xavi, Satya Flores NP HISTORIC INTERPRETER pm1 Ciara Menon RN RN tl2 Cameron Boston RN RN jb4 Jordyn Navarro Sunil Walker Kate
--- NOTE | 2018-11-05 01:12 | EDPHYS ---
Physician Documentation [facility] Name: Letty Hall Age: 23 yrs Sex: Female : 1995 Arrival Date: 11/04/2018 Time: 22:02 Bed 19 Private MD: ED Physician Zi Cerna HPI: 11/04 22:39 This 23 yrs old Female presents to ER via Ambulatory with complaints of pm1 Abdominal Pain, Back Pain, Fever, Cough. 22:39 The patient presents with abdominal pain in the left upper quadrant. pm1 22:39 Onset: The symptoms/episode began/occurred 2 day(s) ago. The symptoms do not radiate. pm1 Associated signs and symptoms: Pertinent positives: fever, nausea, Cough, left flank pain, Pertinent negatives: chest pain, diarrhea, dysuria, shortness of breath, vomiting. The symptoms are described as burning, crampy. Modifying factors: The symptoms are alleviated by nothing, the symptoms are aggravated by nothing. Severity of pain: in the emergency department the pain is actually worse. The patient has not recently seen a physician. 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 - Social history:: Smoking status: Patient uses tobacco products, smokes one pack cigarettes per day. - Ebola Screening: : No symptoms or risks identified at this time. ROS: 22:39 Constitutional: Negative for fever, chills, and weight loss, Eyes: Negative for injury, pm1 pain, redness, and discharge, ENT: Negative for injury, pain, and discharge, Neck: Negative for injury, pain, and swelling, Cardiovascular: Negative for chest pain, palpitations, and edema. 22:39 Back: Negative for injury and pain, : Negative for injury, bleeding, discharge, and swelling, MS/Extremity: Negative for injury and deformity, Skin: Negative for injury, rash, and discoloration, Neuro: Negative for headache, weakness, numbness, tingling, and seizure. 22:39 Respiratory: Positive for cough, Negative for shortness of breath, sputum production, wheezing. 22:39 Abdomen/GI: Positive for abdominal pain, nausea, of the left upper quadrant, Negative for vomiting, diarrhea. Exam: 22:39 Constitutional: This is a well developed, well nourished patient who is awake, alert, pm1 and in no acute distress. Head/Face: Normocephalic, atraumatic. Eyes: Pupils equal round and reactive to light, extra-ocular motions intact. Lids and lashes normal. Conjunctiva and sclera are non-icteric and not injected. Cornea within normal limits. Periorbital areas with no swelling, redness, or edema. ENT: Nares patent. No nasal discharge, no septal abnormalities noted. Tympanic membranes are normal and external auditory canals are clear. Oropharynx with no redness, swelling, or masses, exudates, or evidence of obstruction, uvula midline. Mucous membranes moist. Neck: Trachea midline, no thyromegaly or masses palpated, and no cervical lymphadenopathy. Supple, full range of motion without nuchal rigidity, or vertebral point tenderness. No Meningismus. Chest/axilla: Normal chest wall appearance and motion. Nontender with no deformity. No lesions are appreciated. Cardiovascular: Regular rate and rhythm with a normal S1 and S2. No gallops, murmurs, or rubs. Normal PMI, no JVD. No pulse deficits. Respiratory: Lungs have equal breath sounds bilaterally, clear to auscultation and percussion. No rales, rhonchi or wheezes noted. No increased work of breathing, no retractions or nasal flaring. Abdomen/GI: Soft, non-tender, with normal bowel sounds. No distension or tympany. No guarding or rebound. No evidence of tenderness throughout. Back: No spinal tenderness. No costovertebral tenderness. Full range of motion. Skin: Warm, dry with normal turgor. Normal color with no rashes, no lesions, and no evidence of cellulitis. MS/ Extremity: Pulses equal, no cyanosis. Neurovascular intact. Full, normal range of motion. 22:39 Neuro: Orientation: is normal, Motor: is normal, moves all fours. Vital Signs: 22:16 BP 141 / 80; Pulse 132; Resp 20; Temp 98.7(O); Pulse Ox 97% on R/A; Weight 122.47 kg; tl2 Height 5 ft. 5 in. (165.10 cm); Pain 6/10; 23:00 BP 121 / 67; Pulse 122; Resp 18; Pulse Ox 97% on R/A; jb4 11/05 00:15 BP 124 / 76; Pulse 112; Resp 18; Pulse Ox 98% on R/A; jb4 01:45 BP 125 / 72; Pulse 108; Resp 15; Temp 98.5(O); Pulse Ox 97% on R/A; ag4 11/04 22:16 Body Mass Index 44.93 (122.47 kg, 165.10 cm) tl2 MDM: 11/04 22:25 Patient medically screened. [facility] 11/05 01:05 ED course: Patient around her baseline calcium levels. Patient has not been taking pm1 vitamin D. Instructed patient to get increased sun exposure and to take vitamin D supplements along with her calcium for correction of her hypocalcemia. Patient without any symptoms of hypocalcemia. 01:07 Data reviewed: vital signs. Data interpreted: Pulse oximetry: on room air is 98 %. pm1 Interpretation: normal. Counseling: I had a detailed discussion with the patient and/or guardian regarding: the historical points, exam findings, and any diagnostic results supporting the discharge/admit diagnosis, lab results, radiology results, the need for outpatient follow up, to return to the emergency department if symptoms worsen or persist or if there are any questions or concerns that arise at home. 01:20 ED course: Patient requesting flu and strep swab prior to discharge. pm1 11/04 22:39 Order name: Basic Metabolic Panel pm1 11/04 22:39 Order name: CBC with Diff pm11/04 22:39 Order name: Creatinine for Radiology pm1 11/04 22:39 Order name: Hepatic Function; Complete Time: 00:29 pm1 11/04 22:39 Order name: Lipase; Complete Time: 00:29 pm1 11/04 22:39 Order name: Basic Metabolic Panel; Complete Time: 00:29 [facility] 11/04 22:39 Order name: CBC with Automated Diff; Complete Time: 23:34 [facility] 11/04 22:39 Order name: Creatinine (Radiology Only); Complete Time: 23:34 [facility] 11/04 22:58 Order name: Urine Dipstick--Ancillary (enter results); Complete Time: 01:07 [facility] 11/04 23:08 Order name: Urine Microscopic Only; Complete Time: 01:07 [facility] 11/05 00:42 Order name: Urine Culture [facility] 11/05 01:19 Order name: Flu; Complete Time: 02:01 pm1 11/05 01:19 Order name: Strep; Complete Time: 02:01 pm1 11/05 02:00 Order name: Throat Culture [facility] 11/04 22:39 Order name: IV Saline Lock; Complete Time: 23:07 pm1 11/04 22:39 Order name: Labs collected and sent; Complete Time: 23:07 pm 11/04 22:39 Order name: CT Abd/Pelvis - IV Contrast Only pm1 Administered Medications: 11/04 23:26 Drug: NS 0.9% 1000 ml Route: IV; Rate: 1000 ml; Site: right antecubital; [facility] 11/05 00:40 Follow up: Response: No adverse reaction; IV Status: Completed infusion; IV Intake: jb4 1000ml 11/04 23:42 Not Given (Physician Discretion): Ativan 1 mg IVP once pm1 23:52 Drug: Ativan 1 mg Route: PO; [facility] 11/05 00:20 Follow up: Response: No adverse reaction; Marked relief of symptoms [facility] 01:40 Drug: Rocephin 1 grams Route: IV; Rate: calculated rate; Site: right antecubital; [facility] 01:42 Follow up: Response: No adverse reaction; IV Status: Completed infusion; IV Intake: [id number] Disposition: 09:35 Co-signature as Attending Physician, Zi Cerna MD I agree with the assessment and sandy plan of care. Disposition: 11/05/18 01:11 Discharged to Home. Impression: Urinary tract infection, site not specified, Hypocalcemia, Influenza due to certain identified influenza viruses - Influenza B. - Condition is Stable. - Discharge Instructions: Influenza, Adult, Urinary Tract Infection, Adult, Hypocalcemia, Adult. - Prescriptions for Macrobid 100 mg Oral Capsule - take 1 capsule by ORAL route every 12 hours for 10 days; 20 capsule. Tamiflu 75 mg Oral Capsule - take 1 tablet by ORAL route every 12 hours for 5 days; 10 tablet. - Work release form, Medication Reconciliation Form, Thank You Letter, Antibiotic Education, Prescription Opioid Use form. - Follow up: Emergency Department; When: As needed; Reason: Worsening of condition. Follow up: Private Physician; When: 2 - 3 days; Reason: Recheck today's complaints, Continuance of care, Re-evaluation by your physician. - Problem is new. - Symptoms have improved. Signatures: Dispatcher [employer] EDMS Zi Cerna MD MD cha Marinas, Patrick, NP POLICE LIAISON pm1 Ciara Menon, NYA RN tl2 Cameron Boston RN RN jb4 Corrections: (The following items were deleted from the chart) 01:15 01:11 11/05/2018 01:11 Discharged to Home. Impression: Urinary tract infection, site pm1 not specified. Condition is Stable. Forms are Medication Reconciliation Form, Thank You Letter, Antibiotic Education, Prescription Opioid Use. Follow up: Emergency Department; When: As needed; Reason: Worsening of condition. Follow up: Private Physician; When: 2 - 3 days; Reason: Recheck today's complaints, Continuance of care, Re-evaluation by your physician. Problem is new. Symptoms have improved. pm1 02:05 01:15 11/05/2018 01:11 Discharged to Home. Impression: Urinary tract infection, site pm1 not specified; Hypocalcemia. Condition is Stable. Discharge Instructions: Urinary Tract Infection, Adult, Hypocalcemia, Adult. Forms are Medication Reconciliation Form, Thank You Letter, Antibiotic Education, Prescription Opioid Use. Follow up: Emergency Department; When: As needed; Reason: Worsening of condition. Follow up: Private Physician; When: 2 - 3 days; Reason: Recheck today's complaints, Continuance of care, Re-evaluation by your physician. Problem is new. Symptoms have improved. pm1 02:19 02:05 11/05/2018 01:11 Discharged to Home. Impression: Urinary tract infection, site jb4 not specified; Hypocalcemia; Influenza due to certain identified influenza viruses - Influenza B. Condition is Stable. Discharge Instructions: Urinary Tract Infection, Adult, Hypocalcemia, Adult. Prescriptions for Macrobid 100 mg Oral Capsule - take 1 capsule by ORAL route every 12 hours for 10 days; 20 capsule. and Forms are Medication Reconciliation Form, Thank You Letter, Antibiotic Education, Prescription Opioid Use. Follow up: Emergency Department; When: As needed; Reason: Worsening of condition. Follow up: Private Physician; When: 2 - 3 days; Reason: Recheck today's complaints, Continuance of care, Re-evaluation by your physician. Problem is new. Symptoms have improved. pm1
[2018-11-05] MEDS ORDERED: CEFTRIAXONE/SWI 1gm 1 GM/10 ML SYR ONE (01:48)
--- NOTE | 2018-11-05 11:01 | RAD REPORT ---
EXAM DESCRIPTION: CT - Abdomen Pelvis W Contrast - 11/05/2018 3:21 am CLINICAL HISTORY: 23-year-old female with abdominal pain, body aches, burning sensation and fever TECHNIQUE: Axial CT imaging of the abdomen and pelvis was performed following the administration of intravenous contrast.. Sagittal and coronal reconstructed images were then performed. The CT stud y is performed according to ALARA (as low as reasonably achievable) or ALARA/IMAGE GENTLY, with autom atic adjustment of mA and/or kV according to patient size. Performed on: 11/05/2018 at 12:13 AM. COMPARISON: None FINDINGS: Lung bases: The lung bases are clear. There is minimal bibasilar atelectasis and/or fibros is. Liver: The liver is enlarged and measures 19 cm in craniocaudal dimension. No focal hepatic abnormali ties are identified. There is decreased attenuation of the liver commonly due to fatty infiltration. Spleen: The spleen is normal is size, configuration and attenuation. Gallbladder and bile duct: The gallbladder is surgically absent. There is no biliary ductal dilatat ion. Pancreas: The pancreas is grossly normal in size and configuration. Adrenal Glands: The adrenal glands are normal in size and configuration. Kidneys: The kidneys are normal in size and configuration. There is no evidence of hydronephrosis. Th ere is no evidence of nephrolithiasis. No definite solid or cystic renal mass lesions are identified. Stomach: The stomach is grossly normal. There is no definite hiatal hernia. Bowel: The bowel gas pattern is non specific and non obstructive. Appendix: The appendix is normal. Free air: There is no evidence of free air. Free fluid: There is no evidence of free fluid. Vasculature: The aorta is normal in caliber and contour. The inferior vena cava is grossly unremarkab le. Lymphadenopathy: No pathologic lymphadenopathy is identified. Bladder: The bladder is well distended and smooth in contour. Reproductive: The uterus is grossly within normal limits. Bones: No acute osseous abnormalities are identified. Soft tissues: No focal soft tissue abnormalities are identified. IMPRESSION: 1. No evidence of acute intra-abdominal or intrapelvic pathology. 2. Hepatomegaly and fatty infiltration of the liver. 3. Remote cholecystectomy. Electronically signed by: Precious Yung DO 11/05/2018 12:55 AM CDT Due to temporary technical issues with the PACS/Fluency reporting system, reports are being signed by the in house radiologist as a courtesy to ensure prompt reporting. The interpreting radiologist is f ully responsible for the content of the report.
== END 2018-11-05 02:19 | disposition home or self-care (01) ==
LOC: ER 22:00
DX: N39.0 Urinary tract infection, site not specified (principal); J10.1 Influenza due to other identified influenza virus with other respiratory manifestations; E83.51 Hypocalcemia; I10 Essential (primary) hypertension; F41.9 Anxiety disorder, unspecified; F32.9 Major depressive disorder, single episode, unspecified; F17.210 Nicotine dependence, cigarettes, uncomplicated; Z88.3 Allergy status to other anti-infective agents; Z88.5 Allergy status to narcotic agent
CPT/HCPCS: 36415; 74177; 80048; 80076; 81003; 81015; 83690; 85025; 87070; 87081; 87086; 87088; 87804; 96361; 96374; 99284; J0696; J7030; Q9967

== ENCOUNTER 2020-02-21 22:47 | Emergency (ER) | payer OTHER, SELFPAY ==
--- OUTSIDE RECORDS SUMMARY | 2020-02-21 22:50 | XMS REPORT | Continuity of Care Document ---
:1995 Author Organization [facility] t Address [address] [place] [address] Care Team Providers Name Role Phone Louis Rahman MD Primary Care Physician Susan DEMAND GENERATOR MANAGER Attending Clinician Doctor Unassigned, Name Attending Clinician Unavailable Joe LI Attending Clinician Naina FAY Attending Clinician Unavailable Gildardo Pruitt MD Attending Clinician Dannielle LI Attending Clinician Sue LI Attending Clinician DANNIELLE Admitting Clinician Unavailable Payers Payer Name Policy Type Policy Effective Date Expiration Date Sour ce Number PENDING [id number] 2018 [place] MEDICAIDPENDING 00:00:00 [facility] DISABILITY MEDICAID [id number] [address]Medicaid Problems Condition Condition Condition Status Onset Resolution Last Treating Co mments Source Name Details Category Date Date Treatment Clinician Date 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 [facility] puncture puncture 0-15 Method i headache headache 00:00: st 00 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 0-12 Meth khanh 00:00: st 00 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 Me thodi yroidism yroidism 00:00: st 00 Hypocalcem Hypocalcem Disease Active 2016-05 [place] ia ia 0-12 Methodi 00:00: st 00 Emotionall Emotionall Disease Active 2016-05 [place] y unstable y unstable 0-10 Me thodi borderline borderline 00:00: st personalit personalit 00 y 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 Cannabis Cannabis Disease Active 2016-05 [place] use use 0-10 [facility] disorder, disorder, 00:00: st moderate, moderate, 00 dependence dependence Allergies, Adverse Reactions, Alerts Allergy Allergy Status Severity Reaction(s) Onset Inactive Treating Comm ents Source Name Type Date Date Clinician Haloperi Propensi Active 2016-05 [place] dol ty to 0-15 [facility] adverse 00:00: st reaction 00 s to drug Vancomyc Propensi Active Other (See 2016-05 Red man Harrison velasquez in ty to Comments) 0-08 syndrome Metho di adverse 00:00: st reaction 00 s to drug Family History Family Member Diagnosis Comments Start Date Stop Date Source Maternal aunt Depression [facility] Maternal aunt Suicide Attempts [place] [facility] Natural mother Depression [facility] thodist Natural mother Suicide Attempts [place] [facility] Social History Social Habit Start Date Stop Date Quantity Comments Source History of Cigarette Smoker [facility] tobacco use Sex Assigned [facility] ethodist Alcohol intake 2019-02-20 2019-02-20 Current drinker [place] [facility] 00:00:00 00:00:00 of alcohol (finding) Alcohol Comment 2019-02-19 2019-02-19 drinks casually, [facility] 00:00:00 00:00:00 once a month, 3 X a year Smoking Status Start Date Stop Date Source Current every day smoker 2019-02-20 00:00:00 [facility] Medications Ordered Filled Start Stop Current Ordering Indication Dosage Frequency Signature Comments Components Source Medication Medication Date Date Medication? Clinician (SIG) Name Name furosemide 2018-05 2019- No 10mg QD Take 0.5 [place] (LASIX) 20 0-15 11-14 tablets Metho di mg tablet 00:00: 23:59 ([address] 00 :00 total) by mouth daily for 30 days. calcium 2018-05- No 1{tbl} Q.5D Take 1 [place] citrate-vit 0-14 -14 tablet by Me perales moncada D3 17:06: 00:[address] (CITRACAL+D 46 :00 (two) ) 315-200 times a mg-unit per day. tablet calcium 2018-05- No 1{tbl} Q.[id number] Chew 1 Aj carbonate 0-14 -14 [id number] tablet 3 [facility] (TUMS) 200 17:06: 00:00 3D (three) st mg calcium 46 :00 times a (500 mg) day. chewable tablet magnesium 2018-05 Yes 400mg QD Take 400 Suk[facility] ston oxide 0-14 mg by [facility] (MAG-OX) 17:06: mouth st 400 mg 45 daily. (241.3 mg magnesium) tablet cholecalcif 2018-05 Yes 1000U QD Take 1,000 Aj hira, 0-14 Units by [facility] vitamin D3, 17:06: mouth st (VITAMIN 45 daily. D3) 1,000 unit tablet calcium 2018-05- No 1500mg Q.[id number] Chew 3 Aj carbonate 0-14 -13 [id number] tablets Methodi (TUMS) 200 00:00: 23:59 3D (1,500 mg s t mg calcium 00 :00 total) 3 (500 mg) (three) chewable times a tablet day for 30 days. calcitriol 2018-05- No .5ug Q.5D Take 1 [place] (ROCALTROL) 0-14 -13 capsule Meth khanh 0.5 MCG 00:00: 23:59 (0.[address] capsule 00 :00 total) by mouth 2 (two) times a day for 30 days. dextrometho 2018-05 2019- No 5mL Q4H Take 5 mL [facility] rphan-guaif 03-23 by mouth Met hodi enesin 00:00: 23:[address] (ROBITUSSIN 00 :00 (four) -DM) 10-100 hours as mg/5 mL needed for liquid cough for up to 30 days. methocarbam 2018-05- No 500mg Q.14690163 Take 1 [facility] ol 03-23 [id number] tablet Method i (ROBAXIN) 00:00: 23:59 3D ([address] 500 MG 00 :00 total) by tablet mouth 3 (three) times a day for 30 days. Vital Signs Vital Name Observation Time Observation Value Comments Source Systolic blood 2019-02-21 15:47:35 126 mm[Hg] [facility] pressure Diastolic blood 2019-02-21 15:47:35 69 mm[Hg] [facility] pressure Heart rate 2019-02-21 15:47:35 90 /min Jean Marie Alex Body temperature 2019-02-21 15:47:35 36.56 Loli [facility] Respiratory rate 2019-02-21 15:47:35 18 /min [facility] Oxygen saturation in 2019-02-21 15:47:35 94 /min Jean Marie Alex Arterial blood by Pulse oximetry Procedures Procedure Date / Time Performed Performing Clinician [facility] e BASIC METABOLIC PANEL 2019-02-21 06:00:00 Kody Hoskins HC COMPLETE BLD COUNT 2019-02-21 06:00:00 Kody Hoskins Church W/AUTO DIFF ALBUMIN LEVEL 2019-02-21 06:00:00 Juliette Varma Meth odist ESTIMATED GFR 2019-02-21 06:00:00 Kody Hoskins Meth odist MRI BRAIN W WO CONTRAST 2019-02-20 16:38:00 Kody Hoskins MRI BRAIN VENOGRAM 2019-02-20 16:09:00 Kody Hoskins M ethodist VITAMIN D 25 HYDROXY 2019-02-20 13:11:00 Kody Hoskins Church LEVEL VITAMIN D 1,25 DIHYDROXY 2019-02-20 13:11:00 Kody Hoskinsu ston [facility] LEVEL, SERUM MAGNESIUM LEVEL 2019-02-20 13:11:00 Hoskins, Yijia Aj Meth odist BASIC METABOLIC PANEL 2019-02-20 04:40:00 Kody Hoskins HC COMPLETE BLD COUNT 2019-02-20 04:40:00 Kody Hoskins W/AUTO DIFF ALBUMIN LEVEL 2019-02-20 04:40:00 Juliette Varma Meth odist ESTIMATED GFR 2019-02-20 04:40:00 Kody Hoskins Aj Meth oddirk Plan of Care Planned Activity Planned Date Details Comments Source Future Scheduled 2019-12-10 INFLUENZA VACCINE [facility] Test 00:00:00 [code = INFLUENZA VACCINE] Future Scheduled 2016-08-16 Screening for [facility] Test 00:00:00 malignant neoplasm of cervix (procedure) [code = 874141416] Future Scheduled 2011 CHLAMYDIA SCREENING [facility] [place] [facility] Test 00:00:00 [code = CHLAMYDIA SCREENING] Encounters Start End Encounter Admission Attending Care Care Encounter Source Date/Time Date/Time Type Type Clinicians Facility Department ID 2019-08-02 2019-08-02 Telephone Susan NDLISA [id number] 00:00:00 00:00:00 Deanna Semblee_ [id number] [place] [id number] Professio [id number] [address]al [address] 2019-07-28 2019-07-28 Orders Doctor ALFRED [id number] 00:00:00 00:00:00 Only Unassigned, MIKHAIL [id number] [place] [facility] [id number] 2019-02-18 2019-02-21 [facility] [id number] [facility] 00:00:00 00:00:[address] Results Test Description Test Time Test Comments Results Result Comments Source Vitamin D 1,25 dihydroxy level, serum 2019-02-22 11:42:40 Test Item Value Reference Range Interpretation Comme nts Vit D, 1,25-Dihydroxy (test code 82.56 pg/mL 18-78 H This test was developed and its = 40600-2) performance sandy racteristics determined by [facility] Department of Pathology and G enomic Medicine, [facility]. Serum 1,25 Dihydroxy Vitamin D is tested by LC-MS /MS. It has not been cleared or approved by FDA. The laboratory is regulated under CLIA as qualifi ed to perform high-complexity testing. This test is used fo r clinical purposes. It sh ould not be regarded as inv estigational or for research. Lab Interpretation (test code = Abnormal 50485-5) Jean Marie MethodistVitamin D 25 hydroxy [id number] 17:16:25 Test Item Value Reference Range Interpretation Comments Vitamin D, 36.8 ng/mL 30-150 This assay repo rts the 25-hydroxy (test sum of 25-h ydroxy code = 1988-) vitamin D3 an d 25-hydroxy daniela min D2. Reference range :0-17 years:Deficienc y: less than 20ng/mLOpt imum level: greater than or equal to 20 ng/ mL.18 years and older:Deficienc y: less than 20ng/mLInsuffic iency: 20-29 ng/mLOpti mum Level: 30-80 ng /mLThe assay reportabl e range is 3.4 155.9 n g/mL. Levels higher t gu 150 ng/mL may be as sociated with toxicity.I f toxicity is cli nically suspected and t he reported result is >155.9 ng/mL,co ntact lab for alternative methods to obtain a def initive level.If separa te quantitation of 25-hydroxy daniela min D3 and 25-hydroxy vitamin D2 is needed, p dileep contact lab for alternative met hods. Jean Marie ChurchBasic metabolic [id number] 07:36:19 Test Item Value Reference Range Interpretation Comments Sodium (test code = 2951-2) 142 135- 148 mEq/L Potassium (test code = 2823-3) 3.8 3.5- 5.0 mEq/L Chloride (test code = 2075-0) 102 98- 112 mEq/L CO2 (test code = 2027-9) 23 24- 31 mEq/L L Anion gap (test code = 37827-3) 17@ANIO 7- 15 mEq/L H BUN (test code = 3094-0) 15 mg/dL 6-20 Creatinine (test code = 2160-0) 0.61 mg/dL 0.5-0.9 Glucose (test code = 2345-7) 90 mg/dL 65-99 Calcium (test code = 81311-3) 7.5 mg/dL 8.3-10.2 L Lab Interpretation (test code = Abnormal 02476-0) Jean Marie MethodistAlbumin [id number] 07:36:19 Test Item Value Reference Range Interpretation Comments Albumin (test code = 1751-7) 3.2 g/dL 3.5-5 L Lab Interpretation (test code = Abnormal 51230-3) Jean Marie MethodistEstimated [id number] 07:36:19 Test Item Value Reference Range Interpretation Comments Estimated GFR (test >=90 mL/min/1.73 m2 Jodi huddleston Units code = 5488) InterpretationG 1 >=90 Normal or highG2 60-89 Mildly tftomuzbcW9z 45-59 Mildly to mode rately xshtptfpsS4j 30-44 Moderately to severely decreasedG4 15-29 Severely decre asedG5 <15 Kidn ey failureThe eGFR was calculated feng herndon the Chronic Kidney Disease Epidemiology Co llaboration (CKD-EPI) equat ion. Interpretation is based on recommendations of the National Kidney Foundation-Kidn ey Disease Outcomes Qualit y Initiative (NKF-KDOQI) pub lished in 2014. Jean Marie MethodistCBC with platelet and [id number] 06:52:38 Test Item Value Reference Range Interpretation Comments WBC (test code = 8.76 4.50- 11.00 k/uL 11632-4) RBC (test code = 4.81 m/uL 4.2-5.5 88937-9) HGB (test code = 718-7) 13.3 g/dL 12-16 HCT (test code = 4544-3) 41.5 % 37-47 MCV (test code = 787-2) 86.3 fL 82-100 MCH (test code = 785-6) 27.7 pg 27-34 MCHC (test code = 786-4) 32.0 g/dL 31-37 RDW - SD (test code = 41.4 fL 37-55 84611-1) MPV (test code = 11.1 fL 8.8-13.2 64887-3) Platelet count (test 283 150- 400 k/uL code = 85089-8) Nucleated RBC (test code 0.00 /100 WBC = 71631-6) Neutrophils (test code = 52.7 % 39-69 22962-5) Lymphocytes (test code = 37.0 % 25-45 76902-7) Monocytes (test code = 7.3 % 0-10 69176-0) Eosinophils (test code = 2.5 % 0-5 57273-6) Basophils (test code = 0.3 % 0-1 18322-7) Immature granulocytes 0.2 % 0-1 "Immat ure (test code = 24754-9) granul ocytes" (promyelocytes, myelocytes, metamyelocytes) [facility] Brain W Wo [id number] 17:11:46Hm Interface, Radiology Results Incoming - 02/20/2019 5:14 PM CDTEXAMINATION: MRI BRAIN W WO CONTRASTCLINICAL HISTORY: Headache chronic normal neuro examCOMPARISON: February 18, 2019Findings:No intracranial hemorrhage, acute ischemia, extra-axial fluid collections or parenchymal mass lesions. No hydrocephalus. No suspicious focal bone marrow lesions.Descent of cerebellar tonsils through foramen magnum by 7-8 mm peglike configuration compatible with Chiari I malformation. There is crowding at the level of the foramen magnum.No abnormal postcontrast enhancement.Opacification of bilateral mastoidair cells.IMPRESSION:No acute intracranial abnormalities or mass lesions.Chiari I malformation.[facility]-[id number] [facility] Brain [id number] 16:46:55Hm Interface, Radiology Results Incoming - 02/20/2019 4:50 PM CDTEXAMINATION: MRI BRAIN VENOGRAMCLI NICAL HISTORY: suspected increased intracranial pressure eval for etiologyCOMPARISON: FebruaryIMPRESSION:3-D reconstructions were processed off-line.No significant narrowing of the superior sagittal sinus, internal cerebral veins, straight sinus, transverse sinuses, sigmoid sinuses or proximal internal jugular veins. Left transverse sinus is dominant.[facility]-[id number] MethodistMagnesium [id number] 13:53:14 Test Item Value Reference Range Interpretation Comments Magnesium (test code = 38946-2) 2.1 mg/dL 1.6-2.6 [facility]
--- OUTSIDE RECORDS SUMMARY | 2020-02-21 22:50 | XMS REPORT | Clinical Summary ---
:1995 Author Organization [facility] Address [address] [place] [address] Care Team Providers Name Role Phone Louis Rahman MD Primary Care Provider Allergies Active Allergy Reactions Severity Noted Date Comments Haloperidol 02/22/2017 Vancomycin Other (See Comments) 02/15/2017 Red man syndrome Medications Medication Sig Dispensed Refills Start Date End Date Status magnesium oxide Take 400 mg 0 Ac tive (MAG-OX) 400 mg by mouth (241.3 mg daily. magnesium) tablet cholecalciferol, Take 1,000 0 Ac tive vitamin D3, Units by (VITAMIN D3) 1,000 mouth daily. unit tablet calcium Take 1 0 Discontinu ed citrate-vitamin D3 tablet by 9 ( Stop Taking at (CITRACAL+D) mouth 2 Dischar ge) 315-200 mg-unit (two) times per tablet a day. calcium carbonate Chew 1 0 Di scontinued (TUMS) 200 mg tablet 3 9 (Stop Taking at calcium (500 mg) (three) Dis charge) chewable tablet times a day. calcium carbonate Chew 3 270 tablet 0 02/21/2019 (TUMS) 200 mg tablets 9 calcium (500 mg) (1,500 mg chewable tablet total) 3 (three) times a day for 30 days. calcitriol Take 1 60 capsule 0 02/21/2019 (ROCALTROL) 0.5 capsule (0.5 9 MCG capsule mcg total) by mouth 2 (two) times a day for 30 days. dextromethorphan-g Take 5 mL by 118 mL 0 02/21/2019 01 uaifenesin mouth every 9 (ROBITUSSIN-DM) 4 (four) 10-100 mg/5 mL hours as liquid needed for cough for up to 30 days. furosemide (LASIX) Take 0.5 15 tablet 0 02/22/2019 20 mg tablet tablets (10 9 mg total) by mouth daily for 30 days. methocarbamol Take 1 90 tablet 0 02/21/2019 Expir ed (ROBAXIN) 500 MG tablet (500 9 tablet mg total) by mouth 3 (three) times a day for 30 days. Active Problems Problem Noted Date Spinal puncture headache 02/22/2017 Pseudotumor cerebri 02/19/2017 Idiopathic hypoparathyroidism 02/19/2017 Hypocalcemia 02/19/2017 Emotionally unstable borderline personality disorder i n adult 02/17/2017 Cannabis use disorder, moderate, dependence 02/17/2017 Encounters Date Type Specialty Care Team Description 05/25/2019 Orders Only Endocrinology Marcia Diaz MD hypoparathyroid ism (HCC) (Primary Dx) 02/22/2019 Patient Outreach Quality Collette Chew RN 02/18/2019 - Hospital Encounter Neurosurgery Christian Pruitt Pseudotu mor cerebri (Primary Dx); 02/21/2019 MD Gildardo Acute UTI; Zelaya, Blurry vision, bilateral MD Sue Deluna Yijia, MD after 02/20/2019 Surgical History Surgery Date Site/Laterality Comments GALLBLADDER SURGERY 2012 Medical History Medical History Date Comments Depression Sjogren's syndrome (HCC) Hypoparathyroidism (HCC) Collagen vascular disease (HCC) Family History Medical History Relation Name Comments Depression Maternal Aunt Suicide Attempts Maternal Aunt Depression Mother Suicide Attempts Mother Relation Name Status Comments Maternal Aunt Mother Social History Tobacco Use Types Packs/Day Years Used Date Current Every Day Smoker Cigarettes Tobacco Cessation: Ready to Quit: No; Co unseling Given: Yes Alcohol Use Drinks/Week oz/Week Comments Yes drinks casually, once a month, 3 X a year Sex Assigned at Date Recorded Not on file Last Filed Vital Signs Vital Sign Reading Time Taken Comments Blood Pressure 126/69 02/21/2019 3:47 PM CDT Pulse 90 02/21/2019 3:47 PM CDT Temperature 36.6 C (97.8 F) 02/21/2019 3:47 PM CDT Respiratory Rate 18 02/21/2019 3:47 PM CDT Oxygen Saturation 94% 02/21/2019 3:47 PM CDT Inhaled Oxygen Concentration - - Weight - - Height - - Body Mass Index - - Plan of Treatment Health Maintenance Due Date Last Done Comments CHLAMYDIA SCREENING 2011 CERVICAL CANCER SCREENING 08/16/2016 INFLUENZA VACCINE 12/10/2019 Procedures Procedure Name Priority Date/Time Associated Diagnosis Comme nts ESTIMATED GFR Routine 02/21/2019 6:00 AM Results for this CDT procedure are i n the results section. ALBUMIN LEVEL Routine 02/21/2019 6:00 AM Results for this CDT procedure are i n the results section. HC COMPLETE BLD Routine 02/21/2019 6:00 AM Resul ts for this COUNT W/AUTO DIFF CDT procedure are in the results section. BASIC METABOLIC Routine 02/21/2019 6:00 AM Resul ts for this PANEL CDT procedure are i n the results section. MRI BRAIN W WO STAT 02/20/2019 4:38 PM Result s for this CONTRAST CDT procedure are i n the results section. MRI BRAIN VENOGRAM STAT 02/20/2019 4:09 PM Re sults for this CDT procedure are i n the results section. MAGNESIUM LEVEL Routine 02/20/2019 1:11 PM Resul ts for this CDT procedure are i n the results section. VITAMIN D 1,25 Routine 02/20/2019 1:11 PM Result s for this DIHYDROXY LEVEL, CDT procedure a re in SERUM the results section. VITAMIN D 25 Routine 02/20/2019 1:11 PM Results for this HYDROXY LEVEL CDT procedure are in the results section. ESTIMATED GFR Routine 02/20/2019 4:40 AM Results for this CDT procedure are i n the results section. ALBUMIN LEVEL Routine 02/20/2019 4:40 AM Results for this CDT procedure are i n the results section. HC COMPLETE BLD Routine 02/20/2019 4:40 AM Resul ts for this COUNT W/AUTO DIFF CDT procedure are in the results section. BASIC METABOLIC Routine 02/20/2019 4:40 AM Resul ts for this PANEL CDT procedure are i n the results section. after 02/20/2019 Results Estimated GFR (02/21/2019 6:00 AM CDT)Only the most recent of2 resultswithin the time period is included. Estimated GFR >=90 mL/min/1.73 [facility] Comment: m2 HOSPITAL Catergory Units Interpretation G1 >=90 Normal or high G2 60-89 Mildly decreased G3a 45-59 Mildly to moderately decreas ed G3b 30-44 Moderately to severely decre ased G4 15-29 Severely decreased G5 <15 Kidney failure The eGFR was calculated using the Chronic Kidney Disea se Epidemiology Collaboration (CKD-EPI) equation. Interpretation is based on recommendations of the National Kidney Foundation-Kidney Disease Outcomes Rajesh lity Initiative (NKF-KDOQI) published in 2014. Specimen Plasma specimen Performing Organization Address City/State/ZIP Code Phon e Number [facility] DEPARTMENT OF PATHOLOGY AND [address] [place], [place] [address] GENOMIC MEDICINE [place] [id number] [place] [address] CBC with platelet and differential (02/21/2019 6:00 AM CDT)Only the most recent of2 resultswithin the time period is included. Pathologist [facility] WBC 8.76 4.50 - 11.00 [facility] k/uL HOSPITAL RBC 4.81 4.20 - 5.50 [facility] m/uL [facility] HGB 13.3 12.0 - 16.0 [facility] g/dL [facility] HCT 41.5 37.0 - 47.0 % [facility] MCV 86.3 82.0 - 100.0 [facility] MCH 27.7 27.0 - 34.0 pg [facility] MCHC 32.0 31.0 - 37.0 [facility] RDW - SD 41.4 37.0 - 55.0 fL [facility] MPV 11.1 8.8 - 13.2 [facility] Platelet count 283 150 - 400 k/uL [facility] Nucleated RBC 0.00 /100 WBC [facility] Neutrophils 52.7 39.0 - 69.0 % [facility] Lymphocytes 37.0 25.0 - 45.0 % [facility] Monocytes 7.3 0.0 - 10.0 % [facility] Eosinophils 2.5 0.0 - 5.0 % [facility] Basophils 0.3 0.0 - 1.0 % [facility] Immature granulocytes 0.2Comment: 0.0 - 1.0 % [facility] "Immature HOSPITAL granulocytes" (promyelocytes , myelocytes, metamyelocytes ) Specimen Blood Performing Organization Address [facility] Phon e Number [facility] DEPARTMENT OF PATHOLOGY AND [address] [place] [address] [phone] [address] Albumin level (02/21/2019 6:00 AM CDT)Only the most recent of2 resultswithin the time period is included. Pathologist Sig [facility] Albumin 3.2 (L) 3.5 - 5.0 g/dL [facility] Specimen Plasma specimen Performing Organization Address [facility] Phon e Number [facility] DEPARTMENT OF PATHOLOGY AND [address] [place] [phone] Basic metabolic panel (02/21/2019 6:00 AM CDT)Only the most recent of2 results within the time period is included. Pathologist Sig nature Sodium 142 135 - 148 mEq/L [facility] Potassium 3.8 3.5 - 5.0 mEq/L [facility] Chloride 102 98 - 112 mEq/L [facility] CO2 23 (L) 24 - 31 mEq/L [facility] Anion gap 17@ANIO (H) 7 - 15 mEq/L [facility] BUN 15 6 - 20 mg/dL [facility] Creatinine 0.61 0.50 - 0.90 mg/dL [facility] Glucose 90 65 - 99 mg/dL [facility] Calcium 7.5 (L) 8.3 - 10.2 mg/dL [facility] Specimen Plasma specimen Performing Organization Address [facility] Phon e Number [facility] DEPARTMENT OF PATHOLOGY AND [address] [place] [address] [address] MRI Brain W Wo Contrast (02/20/2019 4:38 PM CDT) Specimen Narrative Performed At EXAMINATION: MRI BRAIN W WO CONTRAST [facility] CLINICAL HISTORY: Headache chronic normal neuro exam COMPARISON: February 18, 2019 Findings: No intracranial hemorrhage, acute ischemia, extra-axia l fluid collections or parenchymal mass lesions. No hydrocepha marlyn. No suspicious focal bone marrow lesions. Descent of cerebellar tonsils through foramen magnum b y 7-8 mm peglike configuration compatible with Chiari I malformation. T here is crowding at the level of the foramen magnum. No abnormal postcontrast enhancement. Opacification of bilateral mastoid air c ells. IMPRESSION: No acute intracranial abnormalities or m ass lesions. Chiari I malformation. [facility]-[id number] Procedure Note Interface, Radiology Results Incoming - 02/20/2019 5:14 PM CDT EXAMINATION: MRI BRAIN W WO CONTRAST CLINICAL HISTORY: Headache chronic no rmal neuro exam COMPARISON: February 18, 2019 Findings: No intracranial hemorrhage, acute ischem ia, extra-axial fluid collections or parenchymal mass lesions. No hydrocephalus. No suspicious focal bone marrow lesions. Descent of cerebellar tonsils through fo ramen magnum by 7-8 mm peglike configuration compatible with Chiari I malformation. There is crowding at the level of the foramen magnum. No abnormal postcontrast enhancement. Opacification of bilateral mastoid air c ells. IMPRESSION: No acute intracranial abnormalities or m ass lesions. Chiari I malformation. [facility]-[id number] Performing Organization Address [facility] Phon e Number [facility] [address] [place] [address] MRI Brain Venogram (02/20/2019 4:09 PM CDT) Specimen Narrative Performed At This result has an attachment that is no t available. EXAMINATION: MRI BRAIN VENOGRAM [facility] CLINICAL HISTORY: suspected increased intracranial pressure eval for etiology COMPARISON: February 17, 2017 IMPRESSION: 3-D reconstructions were processed off-line. No significant narrowing of the superior sagittal sinus, internal cerebral veins, straight sinus, transverse sinuses, sigmoid sinuses or proximal internal jugular veins. Left transverse sinus is dominant. [facility]-[id number] Procedure Note Interface, Radiology Results Incoming - 02/20/2019 4:50 PM CDT EXAMINATION: MRI BRAIN VENOGRAM CLINICAL HISTORY: suspected increased i ntracranial pressure eval for etiology COMPARISON: February 17, 2017 IMPRESSION: 3-D reconstructions were processed off-l ine. No significant narrowing of the superior sagittal sinus, internal cerebral veins, straight sinus, transverse sinuses, sigmoid sinuses or proximal internal jugular veins. Left transverse sinus is dominant. [facility]-[id number] Performing Organization Address [facility] Phon e Number [facility] [address] [place] [phone] Vitamin D 1,25 dihydroxy level, serum (02/20/2019 1:11 PM CDT) Pathologist [facility] Vit D, 82.56 (H) 18.00 - AVA 1,25-Dihydroxy Comment: 78.00 pg/mL [facility] This test was developed and its performance angeli acteristics determined by HOSPITAL the Department of Pathology and Genomic Medicine, [facility]. Serum 1,25 Dihydroxy Vitamin D is tested by LC-MS/MS. It has not been cleared or approved by FDA. The laboratory is reg ulated under CLIA as qualified to perform high-complexity testing. This tre t is used for clinical purposes. It should not be regarded as investigational or for research. Specimen Blood Performing Organization Address City/[facility] Phon e Number [facility] DEPARTMENT OF PATHOLOGY AND [address] [place] [address] [phone] [address] Vitamin D 25 hydroxy level (02/20/2019 1:11 PM CDT) Pathologist [facility] Vitamin D, 36.8 30.0 - 150.0 [facility] 25-hydroxy Comment: ng/mL HOSPITAL This assay reports the sum of 25-hydroxy vitamin D3 an d 25-hydroxy vitamin D2. Reference range: 0-17 years: Deficiency: less than 20ng/mL Optimum level: greater than or equal to 20 ng/mL. 18 years and older: Deficiency: less than 20ng/mL Insufficiency: 20-29 ng/mL Optimum Level: 30-80 ng/mL The assay reportable range is 3.4 155.9 ng/mL. Level s higher than 150 ng/mL may be associated with toxicity. If toxicity is clinically suspected and the reported r esult is >155.9 ng/mL,contact lab for alternative methods to obtain a definitive level. If separate quantitation of 25-hydroxy vitamin D3 and 25-hydroxy vitamin D2 is needed, please contact lab for alternative methods. Specimen Blood Performing Organization Address City/[facility] Phon e Number [facility] DEPARTMENT OF PATHOLOGY AND [address] [place] [address] [phone] [address] Magnesium level (02/20/2019 1:11 PM CDT) Pathologist Sig nature Magnesium 2.1 1.6 - 2.6 mg/dL [facility] L Specimen Plasma specimen Performing Organization Address City/State/ZIP Code Phon e Number [facility] DEPARTMENT OF PATHOLOGY AND [address] [place], [place] [address] GENOMIC MEDICINE [facility] [address] [place] [address] after 02/20/2019 Insurance Payer Benefit Plan / Subscriber ID Effective Phone Address T ype Group Dates PENDING PENDING [id number] 2018-Prese [address] Medic aid [place] nt [id number] MED[place], [place] [id number] (Home) [place] [address] Advance Directives For more information, please contact: [phone] Type Date Recorded 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
[2020-02-21] MEDS ORDERED: KETOROLAC 30 MG/ML INJ ONE (23:23)
[2020-02-21 23:28] LABS: Absolute Lymphocytes (CBC) 3.6 K/uL (0.7-4.9); Basophils % 1.2 % (0-1.3); Hematocrit 42.5 % (36.0-45.0); Lymphocytes % 34.3 % (15.3-44.8); MPV 9.1 fL (7.6-11.3); Protime INR 1.06; RBC Red Blood Cell Count 4.99 M/uL (3.86-4.86)
[2020-02-21 23:43] LABS: Barbiturates NEGATIVE (NEGATIVE); Benzodiazepines NEGATIVE (NEGATIVE); Cocaine NEGATIVE (NEGATIVE); METHAMPHETAM NEGATIVE (NEGATIVE); Methadone NEGATIVE (NEGATIVE); Opiates NEGATIVE (NEGATIVE); Phencyclidine NEGATIVE (NEGATIVE); THC Cannibis NEGATIVE (NEGATIVE)
[2020-02-21 23:48] LABS: ALT/SGPT 28 U/L (12-78); AST/SGOT 16 U/L (15-37); Albumin 3.3 g/dL (3.4-5.0); Alkaline Phosphatase 93 U/L (45-117); BUN Blood Urea Nitrogen 14 mg/dL (7-18); Bicarbonate 28 mmol/L (21-32); Bilirubin Direct < 0.1 mg/dL (0-0.2); Bilirubin Total 0.2 mg/dL (0.2-1.0); Glucose Level 99 mg/dL (74-106); Magnesium 1.9 mg/dL (1.8-2.4); NT PRO-BNP 37 pg/mL (<125); Potassium 3.5 mmol/L (3.5-5.1); Protein, Total 9.3 g/dL (6.4-8.2); Sodium Level 139 mmol/L (136-145); Troponin (Emerg Dept Use Only) < 0.02 ng/mL (0.0-0.045)
[2020-02-21] MEDS ORDERED: NA CHLORIDE 0.9% 1,000 ML ONE (23:50)
--- NOTE | 2020-02-22 00:22 | EDPHYS ---
Physician Documentation [facility] Name: Letty Hall Age: 24 yrs Sex: Female : 1995 Arrival Date: 02/21/2020 Time: 22:50 Bed 19 Private MD: ED Physician Nickolas Corea HPI: 02/20 23:00 This 24 yrs old Female presents to ER via Unassigned with complaints of Chest cp Pain. 23:00 The patient or guardian reports chest pain that is located primarily in the substernal cp area. 23:00 The pain radiates to back. Associated signs and symptoms: Pertinent positives: cough, cp shortness of breath, Pertinent negatives: abdominal pain, diaphoresis, lower extremity pain, lower extremity swelling, syncope, vomiting. The chest pain is described as sharp. Duration: The patient or guardian reports a single episode, that is still ongoing, and unchanged, onset 4 days ago. 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 - Social history:: Smoking status: Patient/guardian denies using tobacco, Patient/guardian denies using alcohol, street drugs, IV drugs. ROS: 23:05 Cardiovascular: Positive for chest pain, Negative for edema, palpitations. cp 23:05 Respiratory: Negative for cough, shortness of breath, wheezing. cp 23:05 Constitutional: Negative for body aches, chills, fever, poor PO intake. cp 23:05 ENT: Negative for ear pain, sore throat, difficulty swallowing, difficulty handling cp secretions. 23:05 Abdomen/GI: Negative for abdominal pain, nausea, vomiting, and diarrhea. 23:05 Back: Positive for radiated pain. 23:05 Neuro: Negative for altered mental status, dizziness, headache, numbness, syncope, weakness. 23:05 All other systems are negative. Exam: 23:08 ECG was reviewed by the Attending Physician. cp 23:20 Head/Face: Normocephalic, atraumatic. cp 23:20 Constitutional: The patient appears in no acute distress, alert, awake, non-diaphoretic, non-toxic, well developed, well nourished, obese. 23:20 Eyes: Periorbital structures: appear normal, Conjunctiva: normal, no exudate, no injection, Lids and lashes: appear normal, bilaterally. 23:20 ENT: External ear(s): are unremarkable, Nose: is normal, Posterior pharynx: Airway: no evidence of obstruction, patent. 23:20 Neck: ROM/movement: is normal, is supple, without pain, no range of motions limitations. 23:20 Chest/axilla: Inspection: normal, Palpation: is normal, no crepitus, no tenderness. 23:20 Cardiovascular: Rate: tachycardic, Rhythm: regular, Pulses: Pulses are 2+ in right radial artery and left radial artery. Edema: is not appreciated, JVD: is not appreciated. 23:20 Respiratory: the patient does not display signs of respiratory distress, Respirations: normal, no use of accessory muscles, no retractions. 23:20 Abdomen/GI: Inspection: abdomen appears normal, Palpation: abdomen is soft and cp non-tender, in all quadrants. 23:20 Back: pain, is absent, ROM is normal. cp 23:20 Skin: no rash present. cp 23:20 Neuro: Orientation: to person, place \T\ time. Mentation: is normal, Motor: moves all fours, strength is normal, Sensation: no obvious gross deficits. Vital Signs: 23:00 BP 133 / 88; Pulse 127; Resp 18; Temp 96.7; Pulse Ox 100% on R/A; Weight 122.47 kg; mg2 Height 5 ft. 5 in. (165.10 cm); Pain 5/10; 23:58 BP 111 / 78; Pulse 113; Resp 18; Pulse Ox 99% on R/A; mg2 10/14 00:24 BP 123 / 71; Pulse 102 RA; Resp 18; Pulse Ox 98% on R/A; mg2 02/20 23:00 Body Mass Index 44.93 (122.47 kg, 165.10 cm) mg2 MDM: 02/20 23:00 Patient medically screened. cp 23:30 Differential diagnosis: abnormal EKG, acute pericarditis, costochondritis, cp gastroesophageal reflux disease (GERD), pleurisy, pneumonia, pneumothorax, pulmonary embolus. 02/21 00:20 Data reviewed: vital signs, nurses notes, lab test result(s), EKG, radiologic studies, cp plain films. 00:20 Test interpretation: by ED physician or midlevel provider: ECG, chest xray negative for cp infiltrates. Counseling: I had a detailed discussion with the patient and/or guardian regarding: the historical points, exam findings, and any diagnostic results supporting the discharge/admit diagnosis, lab results, radiology results, the need for outpatient follow up, a family practitioner, to return to the emergency department if symptoms worsen or persist or if there are any questions or concerns that arise at home. Special discussion: Based on the patient's history, exam, and Dx evaluation, there is no indication for emergent intervention or inpatient Tx. It is understood by the patient/guardian that if the Sx's persist or worsen they need to return immediately for re-evaluation. 02/20 23:02 Order name: Basic Metabolic Panel cp 02/20 23:02 Order name: CBC with Diff cp 02/20 23:02 Order name: LFT's cp 02/20 23:02 Order name: Magnesium cp 02/20 23:02 Order name: NT PRO-BNP cp 02/20 23:02 Order name: PT-INR; Complete Time: 00:11 cp 02/20 23:02 Order name: Troponin (emerg Dept Use Only); Complete Time: 00:11 cp 02/21 00:20 Interpretation: Reviewed. cp 02/20 23:02 Order name: UDS; Complete Time: 00:11 cp 02/20 23:02 Order name: D-Dimer; Complete Time: 00:11 cp 02/20 23:03 Order name: Basic Metabolic Panel; Complete Time: 00:11 EDMS 02/21 00:11 Interpretation: Normal except: CA 7.1. cp 02/20 23:03 Order name: CBC with Automated Diff; Complete Time: 00:11 EDMS 02/21 00:14 Interpretation: Normal except: RBC 4.99. cp 02/20 23:03 Order name: Liver (Hepatic) Function; Complete Time: 00:11 EDMS 02/21 00:15 Interpretation: Normal except: TP 9.3; ALB 3.3; GLOB 6.0; A/G 0.6. cp 02/20 23:03 Order name: Magnesium; Complete Time: 00:11 EDMS 02/20 23:03 Order name: NT PRO-BNP; Complete Time: 00:11 EDMS 02/20 23:02 Order name: XRAY Chest (1 view) cp 02/20 23:02 Order name: EKG; Complete Time: 23:03 cp 02/20 23:02 Order name: Cardiac monitoring; Complete Time: 23:09 cp 02/20 23:02 Order name: EKG - Nurse/Tech; Complete Time: 23:09 cp 02/20 23:02 Order name: IV Saline Lock; Complete Time: 23:09 cp 02/20 23:02 Order name: Labs collected and sent; Complete Time: 23:09 cp 02/20 23:02 Order name: O2 Per Protocol; Complete Time: 23:09 cp 02/20 23:02 Order name: O2 Sat Monitoring; Complete Time: 23:09 cp 02/20 23:02 Order name: Urine Dipstick-Ancillary (obtain specimen); Complete Time: 23:27 cp 02/20 23:02 Order name: Urine Test (obtain specimen); Complete Time: 23:27 cp EC/13 23:08 Rate is 110 beats/min. Rhythm is regular. MA interval is normal. QRS interval is cp normal. QT interval is normal. Interpreted by me. Reviewed by me. Administered Medications: 23:26 Drug: TORadol - Ketorolac 15 mg Route: IVP; Site: right antecubital; mg2 23:57 Follow up: Response: No adverse reaction; Pain is decreased mg2 23:35 Drug: NS 0.9% 1000 ml Route: IV; Rate: 1 bolus; Site: right antecubital; mg2 02/21 00:45 Follow up: Response: No adverse reaction; IV Status: Completed infusion; IV Intake: mg2 1000ml 00:45 Drug: Calcium Carbonate 500 mg 2 tablet Route: PO; mg2 00:45 Follow up: Response: No adverse reaction; Medication administered at discharge. mg2 Disposition: 01:00 Chart complete. cp 01:16 Co-signature as Attending Physician, Nickolas Corea MD. 7 Disposition: 02/22/20 00:21 Discharged to Home. Impression: Other chest pain, Hypocalcemia. - Condition is Stable. - Discharge Instructions: Nonspecific Chest Pain, Hypocalcemia, Adult. - Prescriptions for Diclofenac Sodium 75 mg Oral Tablet, Delayed Release (E.C.) - take 1 tablet by ORAL route 2 times per day; 20 tablet. - Medication Reconciliation Form, Thank You Letter, Antibiotic Education, Prescription Opioid Use form. - Follow up: Private Physician; When: 2 - 3 days; Reason: Worsening of condition. - Problem is new. - Symptoms have improved. Signatures: Dispatcher [employer] EDMS Zi Oconnor PA PA cp Buddy Braun RN RN [facility] Nickolas Corea MD MD 7 Corrections: (The following items were deleted from the chart) 00:11 00:11 Normal except. cp cp 00:49 00:21 02/22/2020 00:21 Discharged to Home. Impression: Other chest pain; Hypocalcemia. mg2 Condition is Stable. Forms are Medication Reconciliation Form, Thank You Letter, Antibiotic Education, Prescription Opioid Use. Follow up: Private Physician; When: 2 - 3 days; Reason: Worsening of condition. Problem is new. Symptoms have improved. cp
--- NOTE | 2020-02-22 00:22 | ER ---
Nurse's Notes [facility] Name: Letty Hall Age: 24 yrs Sex: Female : 1995 Arrival Date: 02/21/2020 Time: 22:50 Bed 19 Private MD: Diagnosis: Other chest pain;Hypocalcemia Presentation: 02/20 23:00 Chief complaint: Patient states: i have chest pain that started 4 days ago now its mg2 getting worse, pain is midsternal radiating to my left shoulder and left mid back. Coronavirus screen: Client denies travel out of the [place] in the last 14 days. At this time, the client does not indicate any symptoms associated with coronavirus-19. Ebola Screen: No symptoms or risks identified at this time. Initial Sepsis Screen: Does the patient meet any 2 criteria? No. Patient's initial sepsis screen is negative. Does the patient have a suspected source of infection? No. Patient's initial sepsis screen is negative. Risk Assessment: Do you want to hurt yourself or someone else? Patient reports no desire to harm self or others. Onset of symptoms was February 21, 2020. 23:00 Method Of Arrival: Ambulatory mg2 23:00 Acuity: BHAKTI 3 mg2 Triage Assessment: 23:10 General: Appears in no apparent distress. comfortable, Behavior is calm, cooperative. mg2 23:10 Pain: Complains of pain in chest Pain radiates to left shoulder. EENT: No signs and/or mg2 symptoms were reported regarding the EENT system. Neuro: Level of Consciousness is awake, alert, obeys commands, Oriented to person, place, time, situation. Cardiovascular: Reports chest pain, Capillary refill < 3 seconds Patient's skin is warm and dry. Rhythm is sinus tachycardia. Respiratory: Airway is patent Respiratory effort is even, unlabored, Respiratory pattern is regular, symmetrical. GI: No signs and/or symptoms were reported involving the gastrointestinal system. : No signs and/or symptoms were reported regarding the genitourinary system. Derm: Skin is intact, is healthy with good turgor, Skin is pink, warm \T\ dry. normal. Musculoskeletal: Circulation, motion, and sensation intact. Capillary refill < 3 seconds. 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 - Social history:: Smoking status: Patient/guardian denies using tobacco, Patient/guardian denies using alcohol, street drugs, IV drugs. Screenin:15 Abuse screen: Denies threats or abuse. Denies injuries from another. Nutritional mg2 screening: No deficits noted. Tuberculosis screening: No symptoms or risk factors identified. Fall Risk IV access (20 points). Assessment: 23:10 Pain: Pain began gradually. mg2 23:16 Reassessment:. General: see triage assessment. mg2 23:58 Reassessment: Patient appears in no apparent distress at this time. Patient and/or mg2 family updated on plan of care and expected duration. Pain level reassessed. Patient is alert, oriented x 3, equal unlabored respirations, skin warm/dry/pink. Patient denies pain at this time. Vital Signs: 23:00 BP 133 / 88; Pulse 127; Resp 18; Temp 96.7; Pulse Ox 100% on R/A; Weight 122.47 kg; mg2 Height 5 ft. 5 in. (165.10 cm); Pain 5/10; 23:58 BP 111 / 78; Pulse 113; Resp 18; Pulse Ox 99% on R/A; mg2 02/21 00:24 BP 123 / 71; Pulse 102 RA; Resp 18; Pulse Ox 98% on R/A; mg2 02/20 23:00 Body Mass Index 44.93 (122.47 kg, 165.10 cm) mg2 ED Course: 02/20 22:50 Patient arrived in ED. ag3 22:53 Zi Oconnor PA is PHCP. cp 22:53 Nickolas Corea MD is Attending Physician. cp 23:08 Gardose, Bdudy, RN is Primary Nurse. mg2 23:09 Inserted saline lock: 20 gauge in right antecubital area, using aseptic technique. dh4 Blood collected. 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 Pulse ox on. NIBP on. mg2 23:13 Triage completed. mg2 23:13 Arm band placed on. mg2 23:35 XRAY Chest (1 view) In Process Unspecified. EDMS 23:57 No provider procedures requiring assistance completed. Patient maintains SpO2 mg2 saturation greater than 95% on room air. 02/21 00:46 IV discontinued, intact, bleeding controlled, No redness/swelling at site. Pressure mg2 dressing applied. 00:46 Patient has correct armband on for positive identification. mg2 Administered Medications: 02/20 23:26 Drug: TORadol - Ketorolac 15 mg Route: IVP; Site: right antecubital; mg2 23:57 Follow up: Response: No adverse reaction; Pain is decreased mg2 23:35 Drug: NS 0.9% 1000 ml Route: IV; Rate: 1 bolus; Site: right antecubital; mg2 02/21 00:45 Follow up: Response: No adverse reaction; IV Status: Completed infusion; IV Intake: mg2 1000ml 00:45 Drug: Calcium Carbonate 500 mg 2 tablet Route: PO; mg2 00:45 Follow up: Response: No adverse reaction; Medication administered at discharge. mg2 Intake: 00:45 IV: 1000ml; Total: 1000ml. mg2 Outcome: 00:21 Discharge ordered by . cp 00:46 Discharged to home ambulatory. mg2 00:46 Condition: stable 00:46 Discharge instructions given to patient, Instructed on discharge instructions, follow up and referral plans. medication usage, Demonstrated understanding of instructions, follow-up care, medications, Prescriptions given X 1. 00:49 Patient left the ED. mg2 Signatures: Dispatcher [employer] EDMS Zi Oconnor PA PA cp Gardose, Michele, RN RN mg2 Mavis Barry3 Enzo Woodall 4 Corrections: (The following items were deleted from the chart) 00:48 00:46 General: Appears in no apparent distress. comfortable, Behavior is calm, mg2 cooperative, mg2
[2020-02-22] MEDS ORDERED: CALCIUM CARBONATE 500 MG TAB ONE (00:44)
[2020-02-22 01:09] VITALS: TEMP 96.7
[2020-02-22 01:25] VITALS: BP 123/71; O2SAT 98
--- NOTE | 2020-02-22 07:13 | EKG ---
Test Date: 2020-02-21 Test Time: 23:09:27 Rose Grader: MEASUREMENT RESULTS: Intervals: Rate: 110 UT: 132 QRSD: 78 QT: 340 QTc: 460 [place]: P: 56 UT: 132 QRS: 54 T: 42 INTERPRETIVE STATEMENTS: Sinus tachycardia Possible Anterior infarct, age undetermined Abnormal ECG Compared to ECG 04/13/2018 02:26:34 Sinus rhythm no longer present Sinus arrhythmia no longer present Myocardial infarct finding still present Electronically Signed On 02-22-20 07:13:10 CDT by Thor Burrell
--- NOTE | 2020-02-22 08:00 | RAD REPORT ---
EXAM DESCRIPTION: RAD - Chest Single View - 02/21/2020 11:34 pm CLINICAL HISTORY: CHEST PAIN COMPARISON: Two view chest January 2018 TECHNIQUE: AP portable chest image was obtained 02/21/2020 11:34 pm . FINDINGS: Lungs are clear. Heart and vasculature are normal. No measurable pleural effusion and no p neumothorax. No acute bony abnormality seen. No acute aortic findings suspected. IMPRESSION: No acute cardiopulmonary process. No significant change from comparison.
== END 2020-02-22 00:49 | disposition home or self-care (01) ==
LOC: ER 22:47
DX: E83.51 Hypocalcemia (principal); I10 Essential (primary) hypertension; F41.8 Other specified anxiety disorders; Z88.3 Allergy status to other anti-infective agents; Z88.5 Allergy status to narcotic agent; Z91.048 Other nonmedicinal substance allergy status
CPT/HCPCS: 96361; 93005; 85025; 80048; 36415; 83735; 85610; 85379; 80076; 80307 ×8; 84484; 83880; 71045; 96374; 99285; J7030

== ENCOUNTER 2020-07-17 22:49 | Emergency (ER) | payer OTHER ==
--- OUTSIDE RECORDS SUMMARY | 2020-07-17 22:52 | XMS REPORT | Continuity of Care Document ---
:1995 Author Organization [facility] t Address [address] [place] [address] Care Team Providers Name Role Phone Eliza Hines Attending Clinician Doctor Unassigned, Name Attending Clinician Unavailable Susan CARDOSO Attending Clinician AIDEE Attending Clinician Unavailable DANNIELLE Admitting Clinician Unavailable Problems This patient has no known problems. Allergies, Adverse Reactions, Alerts This patient has no known allergies or adverse reactions. Medications This patient has no known medications. Procedures This patient has no known procedures. Encounters Start End Encounter Admission Attending Care Care Encounter Source Date/Time Date/Time Type Type Clinicians Facility Department ID 2020-05-22 2020-05-22 GWEN Kim [id number] 16:43:00 20:04:00 Dao Abdullahi [id number] [place] [id number] [place] [id number] 2020-05-22 2020-05-22 Orders Doctor ALFRED [id number] 00:00:00 00:00:00 Only Unassigned, MIKHAIL [id number] [place] [facility] [id number] 2019-08-02 2019-08-02 Telephone GWEN Davis [id number] 00:00:00 00:00:00 [facility] [id number] [place] [id number] [facility] [id number] [place] [address] 2019-07-28 2019-07-28 Orders Doctor ALFRED [id number] 00:00:00 00:00:00 Only Unassigned, MIKHAIL [id number] [place] [id number] 2019-02-18 2019-02-21 Inpatient SANDEEP HOSKINS [facility] [id number] [place] 00:00:00 00:00:[address] Results This patient has no known results.
--- NOTE | 2020-07-18 00:34 | ER ---
Nurse's Notes [facility] Name: Letty Hall Age: 24 yrs Sex: Female : 1995 Arrival Date: 07/17/2020 Time: 22:50 Bed 15 Private MD: Diagnosis: Acute serous otitis media;Acute pharyngitis Presentation: 07/17 23:19 Chief complaint: Patient states: she has been coughing x 3 days productive of "clear bb liquid" which is also coming out of her nose has used OTC medication but it is not helping. Coronavirus screen: cough unrelated to allergies, runny nose. Ebola Screen: No symptoms or risks identified at this time. Initial Sepsis Screen: Does the patient meet any 2 criteria? No. Patient's initial sepsis screen is negative. Does the patient have a suspected source of infection? No. Patient's initial sepsis screen is negative. Risk Assessment: Do you want to hurt yourself or someone else? Patient reports no desire to harm self or others. Onset of symptoms was July 14, 2020. 23:19 Method Of Arrival: Ambulatory 23:19 Acuity: BHAKTI 3 bb Triage Assessment: 23:23 General: Appears ill, Behavior is cooperative. Pain: Denies pain. Neuro: Level of bb Consciousness is awake, alert, obeys commands, Oriented to person, place, time, situation. Cardiovascular: No deficits noted. Respiratory: Reports pain with cough Onset: The symptoms/episode began/occurred 3 days ago, the patient has mild shortness of breath. Derm: Skin is pink, warm \\T\\ dry. Musculoskeletal: Circulation, motion, and sensation intact. 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 bb Historical: - Allergies: 23:23 Haldol; bb 23:23 Morphine; bb 23:23 VANCOMYCIN AND DERIVATIVES; bb - Home Meds: 23:23 calcium carbonate 500 mg calcium (1,250 mg) Oral tab 2500 mg four times a day [Active]; bb magnesium oxide 400 mg Oral tab daily [Active]; Potassium Chloride 75 mg Oral 1 tab daily as needed [Active]; Methocarbamol Oral [Active]; Vitamin D3 oral oral [Active]; Ibuprofen Oral [Active]; claritan [Active]; calcitriol oral oral [Active]; - PMHx: 23:23 Anxiety; Depression; GERD; hypocalcemia; hypoparathyroidism; psuedo cranial bb hypertension; Sinus Tachycardia; - PSHx: 23:23 Cholecystectomy; Dand C; bb - Immunization history:: Adult Immunizations up to date. - Social history:: Smoking status: Patient reports the use of cigarette tobacco products, smokes one-half pack cigarettes per day. Screenin/10 00:41 Abuse screen: Denies threats or abuse. Denies injuries from another. Nutritional rr5 screening: No deficits noted. Tuberculosis screening: No symptoms or risk factors identified. Fall Risk None identified. Total Spence Fall Scale indicates No Risk (0-24 pts). Assessment: 00:20 General: Appears in no apparent distress. uncomfortable, Behavior is calm, cooperative, rr5 appropriate for age. 00:20 Pain: Denies pain. Neuro: Level of Consciousness is awake, alert, obeys commands, rr5 Oriented to person, place, time, situation. Cardiovascular: Capillary refill < 3 seconds Patient's skin is warm and dry. Respiratory: Reports cough that is Airway is patent Respiratory effort is even, unlabored, Respiratory pattern is regular, symmetrical, Derm: Skin is intact, is healthy with good turgor, Skin temperature is warm. Musculoskeletal: Circulation, motion, and sensation intact. Capillary refill < 3 seconds. 01:39 Reassessment: Patient appears in no apparent distress at this time. Patient is alert, rr5 oriented x 3, equal unlabored respirations, skin warm/dry/pink. discharge instruction given and explained without complaints made Patient states feeling better. Patient states symptoms have improved. Vital Signs: 07/17 23:19 BP 118 / 73; Pulse 109; Resp 18 S; Temp 98.1(O); Pulse Ox 97% on R/A; Weight 104.33 kg bb (R); Height 5 ft. 5 in. (165.10 cm) (R); Pain 0/10; 07/18 00:30 BP 116 / 79; Pulse 95; Resp 16; Pulse Ox 98% ; rr5 01:37 BP 122 / 80; Pulse 85; Resp 19; Pulse Ox 99% ; rr5 07/17 23:19 Body Mass Index 38.27 (104.33 kg, 165.10 cm) bb ED Course: 07/17 22:50 Patient arrived in ED. cl3 23:21 Triage completed. bb 23:23 Arm band placed on Patient placed in waiting room, Patient notified of wait time. bb 07/18 00:27 Nickolas Corea MD is Attending Physician. 7 00:29 Darryl Gonzalez PA is PHCP. [facility] 00:32 Ga Mead, RN is Primary Nurse. rr5 00:39 Strep swab sent to lab. rr5 00:41 Patient has correct armband on for positive identification. Bed in low position. Call rr5 light in reach. Pulse ox on. NIBP on. 00:41 Initial Neb Treatment Given as ordered Patient was instructed and evaluated on rr5 procedure. 01:39 No provider procedures requiring assistance completed. Patient did not have IV access rr5 during this emergency room visit. Administered Medications: 00:41 Drug: Decadron 10 mg Route: IM; Site: right gluteus; rr5 01:35 Follow up: Response: No adverse reaction; Marked relief of symptoms rr5 00:41 Drug: Xopenex 1.25 mg Route: Inhalation; rr5 01:35 Follow up: Response: No adverse reaction; Marked relief of symptoms rr5 Outcome: 00:34 Discharge ordered by . jm 01:39 Discharged to home ambulatory. rr5 01:39 Condition: stable 01:39 Discharge instructions given to patient, Instructed on discharge instructions, follow up and referral plans. medication usage, Demonstrated understanding of instructions, follow-up care, medications, Prescriptions given X 2. 01:41 Patient left the ED. rr5 Signatures: Darryl Gonzalez PA PA [facility] Evelin Vitale RN RN bb Roque, Raymond, NYA RN 5 Pritesh Perez 3 Nickolas Corea MD MD [facility]
--- NOTE | 2020-07-18 00:35 | EDPHYS ---
Physician Documentation [facility] Name: Letty Hall Age: 24 yrs Sex: Female : 1995 Arrival Date: 07/17/2020 Time: 22:50 Bed 15 Private MD: ED Physician Nickolas Corea HPI: 07/18 00:30 This 24 yrs old Female presents to ER via Ambulatory with complaints of jmm Productive Cough. 00:30 The patient or guardian reports cough. Onset: The symptoms/episode began/occurred jmm gradually, 3 day(s) ago. Modifying factors: The symptoms are alleviated by nothing, the symptoms are aggravated by nothing. Associated signs and symptoms: Pertinent negatives: fever. This is a 24 year old female with a history of pseudotumor cerebrie, hypoparathyroidism that presents to the ED with complaints of cough, sore throat, and sinus congestion with headache. Denies fever. Patient is concerned she may have been exposed to mold. . 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 06/11/2020 bb Historical: - Allergies: 23:23 Haldol; bb 23:23 Morphine; bb 23:23 VANCOMYCIN AND DERIVATIVES; bb - Home Meds: 23:23 calcium carbonate 500 mg calcium (1,250 mg) Oral tab 2500 mg four times a day [Active]; bb magnesium oxide 400 mg Oral tab daily [Active]; Potassium Chloride 75 mg Oral 1 tab daily as needed [Active]; Methocarbamol Oral [Active]; Vitamin D3 oral oral [Active]; Ibuprofen Oral [Active]; claritan [Active]; calcitriol oral oral [Active]; - PMHx: 23:23 Anxiety; Depression; GERD; hypocalcemia; hypoparathyroidism; psuedo cranial bb hypertension; Sinus Tachycardia; - PSHx: 23:23 Cholecystectomy; Dand C; bb - Immunization history:: Adult Immunizations up to date. - Social history:: Smoking status: Patient reports the use of cigarette tobacco products, smokes one-half pack cigarettes per day. ROS: 07/18 00:30 Constitutional: Negative for fever, chills, and weight loss. jmm ENT: Positive for sinus congestion, sore throat. Respiratory: Positive for cough. All other systems are negative. Exam: 00:30 Constitutional: This is a well developed, well nourished patient who is awake, alert, jmm and in no acute distress. Head/Face: atraumatic. Eyes: EOMI, no conjunctival erythema appreciated 00:30 Cardiovascular: Regular rate and rhythm. No edema appreciated Respiratory: Normal respirations, no respiratory distress appreciated Abdomen/GI: Non distended, soft Back: Normal ROM Skin: General appearance color normal MS/ Extremity: Moves all extremities, no obvious deformities appreciated, no edema noted to the lower extremities Neuro: Awake and alert, normal gait Psych: Behavior is normal, Mood is normal, Patient is cooperative and pleasant 00:30 ENT: TM's: erythema, that is mild, bilaterally. Vital Signs: 07/17 23:19 BP 118 / 73; Pulse 109; Resp 18 S; Temp 98.1(O); Pulse Ox 97% on R/A; Weight 104.33 kg bb (R); Height 5 ft. 5 in. (165.10 cm) (R); Pain 0/10; 07/18 00:30 BP 116 / 79; Pulse 95; Resp 16; Pulse Ox 98% ; rr5 01:37 BP 122 / 80; Pulse 85; Resp 19; Pulse Ox 99% ; rr5 07/17 23:19 Body Mass Index 38.27 (104.33 kg, 165.10 cm) bb MDM: 00:30 Patient medically screened. [facility] 00:33 Data reviewed: vital signs, nurses notes. Counseling: I had a detailed discussion with [facility] the patient and/or guardian regarding: the historical points, exam findings, and any diagnostic results supporting the discharge/admit diagnosis, the need for outpatient follow up, to return to the emergency department if symptoms worsen or persist or if there are any questions or concerns that arise at home. 00:33 ED course: Patient is alert and non toxic in appearance in the ED. No signs of resp [facility] distress. Patient is advised of the need to follow up with pcp and otherwise given strict return precautions. Patient understood and agrees with the plan of care. . 03 00:32 Order name: Strep rr5 Administered Medications: 00:41 Drug: Decadron 10 mg Route: IM; Site: right gluteus; rr5 01:35 Follow up: Response: No adverse reaction; Marked relief of symptoms rr5 00:41 Drug: Xopenex 1.25 mg Route: Inhalation; rr5 01:35 Follow up: Response: No adverse reaction; Marked relief of symptoms rr5 Disposition: 07:16 Co-signature as Attending Physician, Nickolas Corea MD. [email or web address] Disposition: 07/18/20 00:34 Discharged to Home. Impression: Acute serous otitis media, Acute pharyngitis. - Condition is Stable. - Discharge Instructions: Otitis Media, Adult, Pharyngitis. - Prescriptions for Albuterol Sulfate 2.5 mg /3 mL (0.083 %) Inhalation Solution for Nebulization - inhale 1 unit by NEBULIZATION route every 8 hours As needed; 1 box. Zithromax Z- Solitario 250 mg Oral Tablet - take 1 tablet by ORAL route as directed for 5 days Day 1 - take two (2) tablets one time. Day 2, 3, 4 , 5 take one (1) tablet once daily.; 6 tablet. - Medication Reconciliation Form, Thank You Letter, Antibiotic Education, Prescription Opioid Use form. - Follow up: Private Physician; When: 2 - 3 days; Reason: Recheck today's complaints, Continuance of care, Re-evaluation by your physician. Signatures: Dispatcher [employer] EDMS Darryl Gonzalez PA PA [facility] Evelin Vitale RN RN Ga Vega RN RN rr5 Nickolas Corea MD MD [email or web address] Corrections: (The following items were deleted from the chart) 01:41 00:34 07/18/2020 00:34 Discharged to Home. Impression: Acute serous otitis media; Acute rr5 pharyngitis. Condition is Stable. Forms are Medication Reconciliation Form, Thank You Letter, Antibiotic Education, Prescription Opioid Use. Follow up: Private Physician; When: 2 - 3 days; Reason: Recheck today's complaints, Continuance of care, Re-evaluation by your physician. [email or web address]
[2020-07-18] MEDS ORDERED: dexAMETHasone 10 MG/ML VIAL ONE (00:50)
[2020-07-18] MEDS ORDERED: LEVALBUTEROL 1.25 MG/3 ML NEB ONE (00:51)
[2020-07-18 16:35] VITALS: TEMP 98.1
[2020-07-18 16:37] VITALS: BP 122/80; O2SAT 99
== END 2020-07-18 01:41 | disposition home or self-care (01) ==
LOC: ER 22:49
DX: H65.00 Acute serous otitis media, unspecified ear (principal); J02.9 Acute pharyngitis, unspecified; F17.210 Nicotine dependence, cigarettes, uncomplicated; F41.9 Anxiety disorder, unspecified; F32.9 Major depressive disorder, single episode, unspecified; K21.9 Gastro-esophageal reflux disease without esophagitis; E20.9 Hypoparathyroidism, unspecified; G93.2 Benign intracranial hypertension
CPT/HCPCS: 87070; 87081; 96372; 99284; J1100

== ENCOUNTER 2020-08-28 15:06 | Emergency (ER) | payer OTHER ==
--- NOTE | 2020-08-28 18:05 | RAD REPORT ---
EXAM DESCRIPTION: CT - Head Brain Wo Cont - 08/28/2020 5:56 pm CLINICAL HISTORY: HEADACHE Headache, drowsiness COMPARISON: HEAD BRAIN W O CONTRAST dated 06/14/2015HEAD BRAIN W O CONTRAST dated 06/14/2015 TECHNIQUE: All CT scans are performed using dose optimization technique as appropriate and may inclu de automated exposure control or mA/KV adjustment according to patient size. FINDINGS: No intracranial hemorrhage, hydrocephalus or extra-axial fluid collection.No areas of brai n edema or evidence of midline shift. The paranasal sinuses and mastoids are clear. The calvarium is intact. IMPRESSION: No acute intracranial abnormality.
--- NOTE | 2020-08-28 18:21 | ER ---
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 Rapp, was told she needed a CT but her insurance wouldn't cover it. Coronavirus screen: At this time, the client does not indicate any symptoms associated with coronavirus-19. Ebola Screen: Patient negative for fever greater than or equal to 101.5 degrees Fahrenheit, and additional compatible Ebola Virus Disease symptoms Patient denies exposure to infectious person. Patient denies travel to an Ebola-affected area in the 21 days before illness onset. No symptoms or risks identified at this time. 15:32 Method Of Arrival: Ambulatory iw 15:32 Acuity: BHAKTI 3 iw 15:36 Onset of symptoms was July 2020. iw 15:36 Risk Assessment: Do you want to hurt yourself or someone else? Patient reports no iw desire to harm self or others. 15:36 Initial Sepsis Screen: Does the patient meet any 2 criteria? No. Patient's initial iw sepsis screen is negative. Does the patient have a suspected source of infection? No. Patient's initial sepsis screen is negative. [employer]: 16:52 LMP N/A - tw2 Historical: - Allergies: 15:37 Haldol; iw 15:37 Morphine; iw 15:37 VANCOMYCIN AND DERIVATIVES; iw - PMHx: 15:37 psuedo cranial hypertension; Sinus Tachycardia; hypoparathyroidism; hypocalcemia; GERD; iw Depression; Anxiety; - PSHx: 15:37 Cholecystectomy; Dand C; iw - Immunization history:: Adult Immunizations not up to date. - Social history:: Smoking status: Smoking status: Patient reports the use of cigarette tobacco products, denies chronic smoking, but will smoke occasionally. Screenin:46 Abuse screen: Denies threats or abuse. Nutritional screening: No deficits noted. tw2 Tuberculosis screening: No symptoms or risk factors identified. Fall Risk None identified. Assessment: 16:44 Reassessment: provider at bedside at this time. tw2 16:47 General: Appears in no apparent distress. obese, well groomed, Behavior is calm, tw2 cooperative. Pain: Complains of pain in right ear, left ear, right eye and left eye. Neuro: Level of Consciousness is awake, alert, obeys commands. Cardiovascular: Patient's skin is warm and dry. Respiratory: Airway is patent Respiratory effort is even, unlabored, Respiratory pattern is regular, symmetrical. GI: No signs and/or symptoms were reported involving the gastrointestinal system. : No signs and/or symptoms were reported regarding the genitourinary system. EENT: Reports problems with vision for 9 months. Musculoskeletal: Range of motion: intact in all extremities. 18:12 Reassessment: Patient appears in no apparent distress at this time. No changes from tw2 previously documented assessment. Patient and/or family updated on plan of care and expected duration. Pain level reassessed. Patient is alert, oriented x 3, equal unlabored respirations, skin warm/dry/pink. provider at bedside at this time. Vital Signs: 15:32 BP 147 / 65; Pulse 108; Resp 16; Temp 97.5; Pulse Ox 100% on R/A; Pain 6/10; iw 17:34 BP 126 / 94; Pulse 94; Resp 17; Pulse Ox 99% on R/A; tw2 18:12 BP 114 / 65; Pulse 92; Resp 17; Pulse Ox 99% on R/A; tw2 ED Course: 15:09 Patient arrived in ED. as 15:36 Triage completed. iw 15:36 Arm band placed on. iw 16:34 Bed in low position. Call light in reach. Pulse ox on. NIBP on. tw2 16:37 Kathy Beebe FNP-C is PHCP. kb 16:37 Chase Valera MD is Attending Physician. kb 16:40 Vanessa Redman RN is Primary Nurse. tw2 17:56 CT Head Brain wo Cont In Process Unspecified. EDMS 18:33 No provider procedures requiring assistance completed. Patient did not have IV access tw2 during this emergency room visit. Administered Medications: No medications were administered Outcome: 18:20 Discharge ordered by . shila 18:33 Discharged to home ambulatory, with significant other. tw2 18:33 Condition: stable 18:33 Discharge instructions given to patient, significant other, Instructed on discharge instructions, follow up and referral plans. Demonstrated understanding of instructions, follow-up care. 18:33 Patient left the ED. tw2 Signatures: Dispatcher [employer] EDKathy Garcia, ERUM CARDOSO-Kennedi Nelson Irene, NYA RN iw Vanessa Redman RN RN tw2
--- NOTE | 2020-08-28 18:21 | EDPHYS ---
Physician Documentation [facility] Name: Letty Hall Age: 25 yrs Sex: Female : 1995 Arrival Date: 08/28/2020 Time: 15:09 Bed 25 Private MD: ED Physician Chase Valera HPI: 08/28 18:16 This 25 yrs old Female presents to ER via Ambulatory with complaints of Eye kb Pain, Ear Pain, Headache. 18:16 The patient has experienced similar episodes in the past, a few times. The patient has kb been recently seen by a physician:. 18:17 Pt reports pressure behind both eyes and ears that started about 9 months ago with kb intermittent hearing loss and vision disturbances. States she has been to her neurologist a few times about the symptoms and he ordered a CT scan before doing anything else, but her insurance keeps denying it so she came here to get it done. Pt reports she has had these symptoms a few times in the past and it normally means that her fluid levels are high and she needs a spinal tap. Pt states she does not want a spinal tap here due to problems with her last one at another facility, but needs the CT scan done before her neurologist will do it.. Onset: The symptoms/episode began/occurred 9 month(s) ago. Severity of symptoms: At their worst the symptoms were moderate in the emergency department the symptoms are unchanged. PASTOR: 16:52 LMP N/A - tw2 Historical: - Allergies: 15:37 Haldol; iw 15:37 Morphine; iw 15:37 VANCOMYCIN AND DERIVATIVES; iw - PMHx: 15:37 psuedo cranial hypertension; Sinus Tachycardia; hypoparathyroidism; hypocalcemia; GERD; iw Depression; Anxiety; - PSHx: 15:37 Cholecystectomy; Dand C; iw - Immunization history:: Adult Immunizations not up to date. - Social history:: Smoking status: Smoking status: Patient reports the use of cigarette tobacco products, denies chronic smoking, but will smoke occasionally. ROS: 18:15 Constitutional: Negative for fever, chills, and weight loss, Respiratory: Negative for kb shortness of breath, cough, wheezing, and pleuritic chest pain, Abdomen/GI: Negative for abdominal pain, nausea, vomiting, diarrhea, and constipation, MS/Extremity: Negative for injury and deformity, Skin: Negative for injury, rash, and discoloration. 18:15 Eyes: Positive for pressure. 18:15 ENT: Positive for hearing loss, nose bleed. 18:15 Neuro: Positive for headache. Exam: 18:15 Constitutional: This is a well developed, well nourished patient who is awake, alert, kb and in no acute distress. Head/Face: Normocephalic, atraumatic. Eyes: Pupils equal round and reactive to light, extra-ocular motions intact. Lids and lashes normal. Conjunctiva and sclera are non-icteric and not injected. Cornea within normal limits. Periorbital areas with no swelling, redness, or edema. ENT: Moist Mucous membranes Respiratory: Respirations even and unlabored. No increased work of breathing, no retractions or nasal flaring. Skin: Warm, dry with normal turgor. Normal color. MS/ Extremity: Pulses equal, no cyanosis. Neurovascular intact. Full, normal range of motion. Neuro: Awake and alert, GCS 15, oriented to person, place, time, and situation. Moves all extremities. Normal gait. Vital Signs: 15:32 BP 147 / 65; Pulse 108; Resp 16; Temp 97.5; Pulse Ox 100% on R/A; Pain 6/10; iw 17:34 BP 126 / 94; Pulse 94; Resp 17; Pulse Ox 99% on R/A; tw2 18:12 BP 114 / 65; Pulse 92; Resp 17; Pulse Ox 99% on R/A; tw2 MDM: 16:38 Patient medically screened. kb 18:14 Data reviewed: vital signs, nurses notes. Data interpreted: Pulse oximetry: on room air kb is 99 %. Interpretation: normal. Counseling: I had a detailed discussion with the patient and/or guardian regarding: the historical points, exam findings, and any diagnostic results supporting the discharge/admit diagnosis, radiology results, the need for outpatient follow up, a neurologist, to return to the emergency department if symptoms worsen or persist or if there are any questions or concerns that arise at home. 08/28 16:49 Order name: CT Head Brain wo Cont; Complete Time: 18:11 kb Administered Medications: No medications were administered Disposition: 18:55 Co-signature as Attending Physician, Chase Valera MD. rn Disposition: 08/28/20 18:20 Discharged to Home. Impression: Otalgia, bilateral - pressure, Epistaxis - resolved. - Condition is Stable. - Discharge Instructions: Earache, Adult, Nosebleed, [id number]. - Medication Reconciliation Form, Thank You Letter, Antibiotic Education, Prescription Opioid Use, Work release form form. - Follow up: Emergency Department; When: As needed; Reason: Worsening of condition. Follow up: Private Physician; When: 2 - 3 days; Reason: Recheck today's complaints, Continuance of care, Re-evaluation by your physician. Signatures: Dispatcher [employer] EDMS Kathy Beebe, DIVISION ROADMASTER-C DIV[employer] ROADMASTER-Ckb Lacey Carey, RN RN iw Chase Valera MD MD rn Wise, Tara, RN RN tw2 Corrections: (The following items were deleted from the chart) 18:19 18:16 The patient describes the headache as constant, [facility] 18:20 18:15 ENT: Positive for hearing loss, [facility] 18:33 18:20 08/28/2020 18:20 Discharged to Home. Impression: Otalgia, bilateral - pressure; tw2 Epistaxis - resolved. Condition is Stable. Forms are Work release form, Medication Reconciliation Form, Thank You Letter, Antibiotic Education, Prescription Opioid Use. Follow up: Emergency Department; When: As needed; Reason: Worsening of condition. Follow up: Private Physician; When: 2 - 3 days; Reason: Recheck today's complaints, Continuance of care, Re-evaluation by your physician.
[2020-08-28 18:59] VITALS: TEMP 97.5
[2020-08-28 19:12] VITALS: O2SAT 99
[2020-08-28 19:13] VITALS: BP 114/65
== END 2020-08-28 18:33 | disposition home or self-care (01) ==
LOC: ER 15:06
DX: H92.03 Otalgia, bilateral (principal); F17.210 Nicotine dependence, cigarettes, uncomplicated; Z88.3 Allergy status to other anti-infective agents; Z88.5 Allergy status to narcotic agent
CPT/HCPCS: 70450; 99283

== ENCOUNTER 2020-09-07 12:29 | Emergency (ER) | payer OTHER ==
--- OUTSIDE RECORDS SUMMARY | 2020-09-07 12:33 | XMS REPORT | Continuity of Care Document ---
:1995 Author Organization [facility] t Address [address] [place] [place] [address] Care Team Providers Name Role Phone Louis Rahman MD Primary Care Physician Eliza Hines Attending Clinician Doctor Unassigned, Name Attending Clinician Unavailable Susan CARDOSO Attending Clinician AIDEE Attending Clinician Unavailable DANNIELLE Admitting Clinician Unavailable Payers Payer Name Policy Type Policy Number Effective Date Expiration Date S ource Problems Condition Condition Condition Status Onset Resolution Last Treating Co mments Source Name Details Category Date Date Treatment Clinician Date 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 [place] puncture puncture 0-15 Method i headache headache 00:00: st 00 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 H ron r cerebri r cerebri 0-12 Meth khanh 00:00: st 00 Idiopathic Idiopathic Disease Active 2016-05 H ron hypoparath hypoparath 0-12 Me thodi yroidism yroidism 00:00: st 00 Hypocalcem Hypocalcem Disease Active 2016-05 H ouced ia ia 0-12 Methodi 00:00: st 00 Emotionall Emotionall Disease Active 2016-05 H ouced y unstable y unstable 0-10 Me thodi borderline borderline 00:00: st personalit personalit 00 y 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 Cannabis Cannabis Disease Active 2016-05 [place] use use 0-10 [facility] disorder, disorder, 00:00: st moderate, moderate, 00 dependence dependence Allergies, Adverse Reactions, Alerts Allergy Allergy Status Severity Reaction(s) Onset Inactive Treating Comm ents Source Name Type Date Date Clinician haloperi DA Active [facility] dol 4-27 Clear 00:00: 00 [facility] vancomyc DA Active [facility] in 4-27 Clear 00:00: 00 [facility] Haloperi Propensi Active 2016-05 [place] to 0-15 [facility] adverse 00:00: st reaction 00 s to drug Vancomyc Propensi Active Other (See 2016-05 Red man Harrison haleyced in ty to Comments) 0-08 syndrome Metho di adverse 00:00: st reaction 00 s to drug Family History Family Member Diagnosis Comments Start Date Stop Date Source Maternal aunt Depression [facility] Maternal aunt Suicide Attempts [place] [facility] Natural mother Depression [facility] thodist Natural mother Suicide Attempts [place] [facility] Social History Social Habit Start Date Stop Date Quantity Comments Source History of Cigarette Smoker Aj [facility] tobacco use Alcohol intake 2019-02-20 2019-02-20 Current drinker [place] [facility] 00:00:00 00:00:00 of alcohol (finding) Alcohol Comment 2019-02-19 2019-02-19 drinks casually, Sukhdevglenn coughlin [facility] 00:00:00 00:00:00 once a month, 3 X a year Sex [birth year] At [birth year] Jean Marie Schmitt ethodist 00:00:00 00:00:00 Smoking Status Start Date Stop Date Source Current every day smoker 2019-02-20 00:00:00 Sukhdev ced [facility] Medications Ordered Filled Start Stop Current Ordering Indication Dosage Frequency Signature Comments Components Source Medication Medication Date Date Medication? Clinician (SIG) Name Name magnesium 2018-05 Yes 400mg QD Take 400 Sukhdev ston oxide 0-14 mg by Methodi (MAG-OX) 17:06: mouth st 400 mg 45 daily. (241.3 mg magnesium) tablet cholecalcif 2018-05 Yes 1000U QD Take 1,000 Aj hira, 0-14 Units by [facility] vitamin D3, 17:06: mouth st (VITAMIN 45 daily. D3) 1,000 unit tablet Procedures This patient has no known procedures. Plan of Care Planned Activity Planned Date Details Comments Source Future Scheduled 2020-12-09 INFLUENZA VACCINE [place] [facility] Test 00:00:00 [code = INFLUENZA VACCINE] Future Scheduled 2016-08-16 Screening for [facility] Test 00:00:00 malignant neoplasm of cervix (procedure) [code = 671915699] Future Scheduled 2013-08-16 Hepatitis C [place] [facility] Test 00:00:00 screening (procedure) [code = 930810575] Future Scheduled 2011 COVID-19 VACCINE (1) [facility] c[facility] Test 00:00:00 [code = COVID-19 VACCINE (1)] Encounters Start End Encounter Admission Attending Care Care Encounter Source Date/Time Date/Time Type Type Clinicians Facility Department ID 2020-05-22 2020-05-22 Emergency [place], [facility] [id number] 16:43:00 20:04:00 Dao Abdullahi [id number] [place] [id number] [place] [id number] 2020-05-22 2020-05-22 Orders Doctor SIMON [id number] 00:00:00 00:00:00 Only Unassigned, MIKHAIL [id number] [place] [facility] [id number] 2019-08-02 2019-08-02 Telephone Anene, [facility] [id number] 00:00:00 00:00:00 Deanna [facility] [id number] [place] [id number] donal [id number] nal [address] 2019-07-28 2019-07-28 Orders Doctor ALFRED [id number] 00:00:00 00:00:00 Only Unassigned, MIKHAIL [id number] [place] [facility] [id number] 2019-02-18 2019-02-21 Inpatient SANDEEP HOSKINS [facility] [id number] [place] 00:00:00 00:00:[address] Results Test Description Test Time Test Comments Results Result Comments Source Novel Coronavirus 2019 Inhouse 2020-09-05 08:22:00 Test Item Value Reference Range Interpretation Comme nts Novel Coronavirus 2018 Negative Negative Posit yoshi results are indicative of the Inhouse (test code = presenc e [id number] RNA, clinical COVNONPUI) correlation wit h patient historyand other diagnosti c information is necessary to de terminepatient infection status. Positiv e results do not rule outbacterial in fection or co-infection with other viru ses. Negative results do not preclude SA RS-CoV-2 infection andshould not b e used as the sole basis for patient man agementdecisions. Negative result s must be combined with otherclinical o bservations, patient history, and ep idemiologicalinformation. Detection of SA RS-CoV-2 RNA may be affected bysamp le collection methods, storage conditi ons, and/or stageof infection. Kajal l RNA mutations, vaccinations, a ntiviraltherapeutics, antibiotics, ch emotherapeutic orimmunosuppres mariel drugs have not been evaluated for e ffectson detection. Results are for the identification of SARS-CoV-2 RNA usingthe Surface Tension System under th e FDA Emergency UseAuthorizatio n. The testing is performed by oliva rsonneltrained in the procedures for the [employer]000 moleculardiagno stic SARS-CoV-2 assay in vitro. PROTHROMBIN [id number] 14:33:00 Test Item Value Reference Range Interpretation Comments PROTHROMBIN TIME 13.1 SECONDS 9.3-12.9 H PATIENT (test code = PTP) INTERNATIONAL NORMAL 1.2 0.8-1.2 N TARGET RATIO (test code = INR BY IN DICATION INR) Indication INR1. Prophyl axis of venous thrombos is 2.0 - 3. 0 (orthopedic concha kingston), Prophylaxis of venous thrombos is (other than hig h-risk surgery), Alanna tment of Deep Vein Thrombosis/Pulm onary Embolism, Preve ntion of systemic emb olism - Tissue heart va lves, Acute Myocardia l Infarction (to prevent systemic embo lism), Valvular heart disease, Atri al Fibrillation, Bileaflet mecha nical valve in aortic position.2. Mec hanical prosthetic valv es (high risk), 2.5 - 3.5 Presence of Lupus Anticoagu lant or Antiphospholi pid Antibodies, Pre vention of systemic e mbolism - Acute Myocard ial Infarction (t o prevent recurre nt infarct). THROMBOPLASTIN TIME [id number] 14:33:00 Test Item Value Reference Range Interpretation Comments THROMBOPLASTIN TIME 31.5 Seconds 25.0-39.5 N Ther apeutic PARTIAL (test code = Range: 50.4 - 88.3 PTT) Seconds Effective 08/24/2018 CBC W/AUTO [id number] 14:32:00 Test Item Value Reference Range Interpretation Comments WHITE BLOOD CELL (test code = 6.3 x10 3/uL 4.5-11.0 N WBC) RED BLOOD CELL (test code = 4.69 x10 6/uL 3.54-5.02 N RBC) HEMOGLOBIN (test code = HGB) 13.4 g/dL 11.0-15.0 N HEMATOCRIT (test code = HCT) 41.3 % 33.0-45.0 N MEAN CELL VOLUME (test code = 88.1 fL 81.0-99.0 N MCV) MEAN CELL HGB (test code = MCH) 28.6 pg 27.0-33.0 N MEAN CELL HGB CONCETRATION 32.4 g/dL 33.0-37.0 L (test code = MCHC) RED CELL DISTRIBUTION WIDTH CV 13.1 % 11.5-14.5 N (test code = RDW) RED CELL DISTRIBUTION WIDTH SD 41.8 fL 37.0-54.0 N (test code = RDW-SD) PLATELET COUNT (test code = 264 x10 3/uL 150-400 N PLT) MEAN PLATELET VOLUME (test code 10.9 fL 7.0-9.0 H = MPV) NEUTROPHIL % (test code = NT%) 54.6 % 56.0-77.0 L IMMATURE GRANULOCYTE % (test 0.3 % 0.0-2.0 N code = IG%) LYMPHOCYTE % (test code = LY%) 36.2 % 14.0-32.0 H MONOCYTE % (test code = MO%) 5.7 % 4.8-9.0 N EOSINOPHIL % (test code = EO%) 2.9 % 0.3-3.7 N BASOPHIL % (test code = BA%) 0.3 % 0.0-2.0 N NUCLEATED RBC % (test code = 0.0 % 0-0 N NRBC%) NEUTROPHIL # (test code = NT#) 3.44 x10 3/uL 2.0-7.6 N IMMATURE GRANULOCYTE # (test 0.02 x10 3/uL 0.00-0.03 N code = IG#) LYMPHOCYTE # (test code = LY#) 2.28 x10 3/uL 1.0-3.8 N MONOCYTE # (test code = MO#) 0.36 x10 3/uL 0.1-0.8 N EOSINOPHIL # (test code = EO#) 0.18 x10 3/uL 0.0-0.2 N BASOPHIL # (test code = BA#) 0.02 x10 3/uL 0.0-0.2 N NUCLEATED RBC # (test code = 0.00 x10 3/uL 0.0-0.1 N NRBC#) MANUAL DIFF REQUIRED (test code NO = MDIFF) PROTHROMBIN [id number] 14:31:00 Test Item Value Reference Range Interpretation Comments PROTHROMBIN TIME SECONDS 9.3-12.9 PATIENT (test code = PTP) INTERNATIONAL NORMAL 1.2 0.8-1.2 N TARGET RATIO (test code = INR BY IN DICATION INR) Indication INR1. Prophylax is of venous thrombos is 2.0 - 3.0 (orthopedic concha kingston), Prophylaxis of venous thrombosis (oth er than high-risk concha kingston), Treatment of De ep Vein Thrombosis/Pulm onary Embolism, Preve ntion of systemic emb olism - Tissue heart va lves, Acute Myocardia l Infarction (to prevent systemic emboli sm), Valvular heart disease, Atrial Fibrill ation, Bileaflet mecha nical valve in aortic position.2. Mec hanical prosthetic valv es (high risk), 2.5 - 3.5 Presence of Lup us Anticoagulant o r Antiphospholipi d Antibodies, Pre vention of systemic e mbolism - Acute Myocardia l Infarction (t o prevent recurrent infar ct). THROMBOPLASTIN TIME [id number] 14:31:00 Test Item Value Reference Range Interpretation Comments THROMBOPLASTIN TIME PARTIAL (test Seconds 25.0-39.5 code = PTT) HCG SERUM [id number] 14:27:00 Test Item Value Reference Range Interpretation Comments HCG SERUM QUAL (test code = SERUM NEGATIVE NEGATIVE HCGQL)
[2020-09-07 13:57] LABS: Urine Blood Negative (Negative); Urine Glucose Negative (Negative); Urine Protein Trace (Negative); Urine Specific Gravity 1.025 (1.005-1.030)
[2020-09-07 14:01] LABS: Urine Specific Gravity/Preg 1.025 (1.005-1.030)
[2020-09-07 14:06] LABS: Absolute Lymphocytes (CBC) 2.7 K/uL (0.7-4.9); Basophils % 0.4 % (0-1.3); Hematocrit 41.1 % (36.0-45.0); Lymphocytes % 16.7 % (15.3-44.8); RBC Red Blood Cell Count 4.85 M/uL (3.86-4.86)
[2020-09-07 14:14] LABS: Protime INR 1.15
[2020-09-07 14:23] LABS: ALT/SGPT 104 U/L (12-78); AST/SGOT 41 U/L (15-37); Albumin 3.3 g/dL (3.4-5.0); Alkaline Phosphatase 101 U/L (45-117); BUN Blood Urea Nitrogen 11 mg/dL (7-18); Bicarbonate 28 mmol/L (21-32); Bilirubin Direct < 0.1 mg/dL (0-0.2); Bilirubin Total 0.4 mg/dL (0.2-1.0); Glucose Level 86 mg/dL (74-106); NT PRO-BNP 492 pg/mL (<125); Potassium 3.6 mmol/L (3.5-5.1); Protein, Total 8.7 g/dL (6.4-8.2); Sodium Level 140 mmol/L (136-145); Troponin (Emerg Dept Use Only) < 0.02 ng/mL (0.0-0.045)
[2020-09-07] MEDS ORDERED: METHYLPREDNISOLONE 125 MG INJ ONE (14:23)
[2020-09-07] MEDS ORDERED: LEVALBUTEROL 1.25 MG/3 ML NEB ONE (14:23)
[2020-09-07] MEDS ORDERED: predniSONE 20 MG TAB ONE (14:23)
[2020-09-07] MEDS ORDERED: PIPER/TAZO/NS 3.375gm 0 GM/0 ML BAG ONE (14:24)
[2020-09-07] MEDS ORDERED: CEFTRIAXONE/SWI 1gm 1 GM/10 ML SYR ONE (14:24)
[2020-09-07] MEDS ORDERED: IPRATROPIUM BROM 0.5MG/2.5ML ONE (14:24)
[2020-09-07] MEDS ORDERED: FAMOTIDINE 20 MG/2 ML VIAL IV ONE (14:24)
--- NOTE | 2020-09-07 14:24 | RAD REPORT ---
EXAM DESCRIPTION: CT - Chest For Pe Angio - 09/07/2020 1:58 pm CLINICAL HISTORY: Chest pain COMPARISON: September 07, 2020 chest x-ray TECHNIQUE: Dynamically enhanced axial 3 mm thick images of the chest were obtained during administra tion of <100> mL Isovue 370 IV contrast. Coronal and oblique reconstruction images were generated and reviewed. Exam utilizes a protocol for optimal evaluation of pulmonary arterial tree. Maximum intensity projections 3D imaging was utilized All CT scans are performed using dose optimization technique as appropriate and may include automated exposure control or mA/KV adjustment according to patient size. FINDINGS: A pulmonary embolus is not seen. A thoracic aortic aneurysm is not noted. A pleural effusion is not seen. A pericardial effusion is not seen. Mild bilateral atelectasis IMPRESSION: Negative for a pulmonary embolism.
--- NOTE | 2020-09-07 14:26 | RAD REPORT ---
EXAM DESCRIPTION: Annmarie Single View09/07/2020 1:50 pm CLINICAL HISTORY: Chest pain COMPARISON: 2019 FINDINGS: Mild bilateral atelectasis The heart is normal size
--- NOTE | 2020-09-07 14:39 | RAD REPORT ---
EXAM DESCRIPTION: USExtrem Venous W Compress Bil09/07/2020 2:30 pm CLINICAL HISTORY: Leg swelling COMPARISON: 2017 FINDINGS: The examination is somewhat limited secondary to body habitus. The common femoral, superficial femoral, popliteal and posterior tibial veins bilaterally are rom sible and demonstrate augmentation. Doppler demonstrates good flow. IMPRESSION: No evidence of deep venous thrombosis involving either lower extremity.
--- NOTE | 2020-09-07 15:59 | EDPHYS ---
Physician Documentation [facility] Name: Letty Hall Age: 25 yrs Sex: Female : 1995 Arrival Date: 09/07/2020 Time: 12:32 Bed 8 Private MD: ED Physician Zi Cerna HPI: 09/07 13:17 This 25 yrs old Female presents to ER via Ambulatory with complaints of post sandy tonsillectomy/ear tubes, Breathing Difficulty, Low O2. 13:17 The patient has shortness of breath at rest, with light activity. Onset: The sandy symptoms/episode began/occurred just prior to arrival, this morning. Duration: The symptoms are continuous, and are steadily getting worse. The patient's shortness of breath is aggravated by nothing, is alleviated by nothing. Associated signs and symptoms: Pertinent positives: non-productive cough. Severity of symptoms: At their worst the symptoms were moderate in the emergency department the symptoms have improved mildly. The patient has not experienced similar symptoms in the past. 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 - Social history:: Smoking status: Patient denies any tobacco usage or history of. - Family history:: not pertinent. ROS: 13:17 Constitutional: Negative for fever, chills, and weight loss, Eyes: Negative for injury, sandy pain, redness, and discharge, ENT: Negative for injury, pain, and discharge, Neck: Negative for injury, pain, and swelling, Cardiovascular: Negative for chest pain, palpitations, and edema, Respiratory: Negative for shortness of breath, cough, wheezing, and pleuritic chest pain, Abdomen/GI: Negative for abdominal pain, nausea, vomiting, diarrhea, and constipation, Back: Negative for injury and pain, : Negative for injury, bleeding, discharge, and swelling, MS/Extremity: Negative for injury and deformity, Skin: Negative for injury, rash, and discoloration, Neuro: Negative for headache, weakness, numbness, tingling, and seizure, Psych: Negative for depression, anxiety, suicide ideation, homicidal ideation, and hallucinations, Allergy/Immunology: Negative for hives, rash, and allergies, Endocrine: Negative for neck swelling, polydipsia, polyuria, polyphagia, and marked weight changes, Hematologic/Lymphatic: Negative for swollen nodes, abnormal bleeding, and unusual bruising. 13:17 MS/extremity: Positive for pain, swelling, of the right leg and left leg. Exam: 13:17 Constitutional: This is a well developed, well nourished patient who is awake, alert, sandy and in no acute distress. Head/Face: Normocephalic, atraumatic. Eyes: Pupils equal round and reactive to light, extra-ocular motions intact. Lids and lashes normal. Conjunctiva and sclera are non-icteric and not injected. Cornea within normal limits. Periorbital areas with no swelling, redness, or edema. ENT: Nares patent. No nasal discharge, no septal abnormalities noted. Tympanic membranes are normal and external auditory canals are clear. Oropharynx with no redness, swelling, or masses, exudates, or evidence of obstruction, uvula midline. Mucous membranes moist. Neck: Trachea midline, no thyromegaly or masses palpated, and no cervical lymphadenopathy. Supple, full range of motion without nuchal rigidity, or vertebral point tenderness. No Meningismus. Chest/axilla: Normal chest wall appearance and motion. Nontender with no deformity. No lesions are appreciated. Cardiovascular: Regular rate and rhythm with a normal S1 and S2. No gallops, murmurs, or rubs. Normal PMI, no JVD. No pulse deficits. Abdomen/GI: Soft, non-tender, with normal bowel sounds. No distension or tympany. No guarding or rebound. No evidence of tenderness throughout. Back: No spinal tenderness. No costovertebral tenderness. Full range of motion. Female : Normal external genitalia. Skin: Warm, dry with normal turgor. Normal color with no rashes, no lesions, and no evidence of cellulitis. MS/ Extremity: Pulses equal, no cyanosis. Neurovascular intact. Full, normal range of motion. Neuro: Awake and alert, GCS 15, oriented to person, place, time, and situation. Cranial nerves II-XII grossly intact. Motor strength 5/5 in all extremities. Sensory grossly intact. Cerebellar exam normal. Normal gait. Psych: Awake, alert, with orientation to person, place and time. Behavior, mood, and affect are within normal limits. 13:17 Respiratory: the patient does not display signs of respiratory distress, Respirations: no acute changes, is not noted, Breath sounds: decreased breath sounds, that are mild, are scattered, rhonchi, that are mild, are scattered, stridor, is not appreciated, + upper airway congestion. wheezing: expiratory is heard diffusely. 13:17 Musculoskeletal/extremity: DVT Exam: no pain, no tenderness, negative Homans' sign noted on exam, no appreciated bluish discoloration, no erythema, no increased warmth, swelling. 15:41 ECG was reviewed by the Attending Physician. sandy Vital Signs: 12:36 BP 138 / 88; Pulse 88; Resp 20; Temp 98.2; Pulse Ox 98% on R/A; Pain 5/10; hb 14:00 BP 116 / 59; Pulse 88; Resp 18; Pulse Ox 100% on R/A; tw2 15:02 BP 114 / 92; Pulse 92; Resp 18; Pulse Ox 100% on R/A; tw2 15:39 BP 108 / 70; Pulse 107; Resp 18; Pulse Ox 98% on R/A; tw2 MDM: 13:03 Patient medically screened. sandy 13:20 Differential diagnosis: asthma, Bronchitis pneumonia, pulmonary edema, Pulmonary sandy Embolism reactive airway disease, Unstable Angina. Antibiotic administration: The patient is discharged and will get outpatient antibiotics, Zithromax. The patient's Wells Deep Vein Thrombosis Score was calculated as follows: Imm/Surg in last 4 wks (1.5 Pts) Total Score: 0-2 Pts- Low Risk. The patient's pulmonary embolism risk score was calculated as follows: patient has experienced immobilization or surgery in the last four weeks (1.5 Pts) Total Score: 0-2 points. This patient was found to be at low risk for a pulmonary embolism by using the Well's assessment criteria. Immunization status:. Data reviewed: vital signs, nurses notes, lab test result(s), EKG, radiologic studies, CT scan, plain films. 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 Test interpretation: by ED physician or midlevel provider: ECG, plain radiologic studies. Counseling: I had a detailed discussion with the patient and/or guardian regarding: the historical points, exam findings, and any diagnostic results supporting the discharge/admit diagnosis, lab results, radiology results. 09/07 13:17 Order name: Basic Metabolic Panel [facility] 09/07 13:17 Order name: CBC with Diff [facility] 09/07 13:17 Order name: LFT's [facility] 09/07 13:17 Order name: Magnesium; Complete Time: 15:15 [facility] 09/07 13:17 Order name: NT PRO-BNP; Complete Time: 15:15 [facility] 09/07 13:17 Order name: PT-INR; Complete Time: 15:15 [facility] 09/07 13:17 Order name: Troponin (emerg Dept Use Only); Complete Time: 15:15 [facility] 09/07 13:17 Order name: Urine Culture [facility] 09/07 13:17 Order name: Basic Metabolic Panel; Complete Time: 15:15 [facility] 09/07 13:17 Order name: CBC with Automated Diff; Complete Time: 15:15 [facility] 09/07 13:17 Order name: Liver (Hepatic) Function; Complete Time: 15:15 [facility] 09/07 13:50 Order name: Blood Culture Adult (2) [facility] 09/07 13:17 Order name: XRAY Chest (1 view); Complete Time: 15:15 [facility] 09/07 13:17 Order name: EKG; Complete Time: 13:18 [facility] 09/07 13:17 Order name: Cardiac monitoring; Complete Time: 14:57 [facility] 09/07 13:17 Order name: EKG - Nurse/Tech; Complete Time: 14:57 [facility] 09/07 13:17 Order name: US Extremity Venous W Compression Shane; Complete Time: 15:15 [facility] 09/07 13:17 Order name: CT Chest For PE Angio; Complete Time: 15:15 [facility] 09/07 13:51 Order name: Blood Culture [facility] 09/07 13:56 Order name: Urine Dipstick-Ancillary; Complete Time: 15:15 [facility] 09/07 13:57 Order name: Urine --Ancillary (enter results); Complete Time: 15:15 09/07 13:17 Order name: IV Saline Lock; Complete Time: 14:55 [facility] 09/07 13:17 Order name: Labs collected and sent; Complete Time: 14:55 [facility] 09/07 13:17 Order name: O2 Per Protocol; Complete Time: 14:55 [facility] 09/07 13:17 Order name: O2 Sat Monitoring; Complete Time: 14:55 sandy EC:41 Rate is 87 beats/min. Rhythm is regular. QRS [place] is Normal. ID interval is normal. QRS sandy interval is normal. QT interval is normal. No Q waves. T waves are Normal. No ST changes noted. Clinical impression: NSR w/ Non-specific ST/T Changes and No evidence of ischemia. Interpreted by me. Reviewed by me. Administered Medications: 14:40 Drug: SOLU-Medrol (methylPrednisoLONE) 125 mg Route: IVP; Site: right antecubital; tw2 15:39 Follow up: Response: No adverse reaction tw2 14:40 Drug: Xopenex (levalbuterol) 3.75 mg {Note: pt back from imaging at this time.} Route: tw2 Inhalation; 14:40 Drug: AtroVENT (ipratropium) Aerosol 0.5 mg Route: Inhalation; tw2 14:45 Drug: Pepcid (famotidine) 20 mg Route: IVP; Site: right antecubital; tw2 15:38 Follow up: Response: No adverse reaction tw2 14:52 Not Given (md discretion): predniSONE 40 mg PO once sandy 15:20 Drug: Rocephin (cefTRIAXone) 1 grams Route: IV; Rate: per protocol; Site: right tw2 antecubital; 15:39 Follow up: Response: No adverse reaction; IV Status: Completed infusion; IV Intake: [id number] 15:21 Not Given (Duplicate Order): Zosyn (piperacillin-tazobactam) 3.375 grams IVPB once over sandy 60 mins; (mix in NS 100 mL) Disposition: 09/07/20 15:33 Discharged to Home. Impression: Atelectasis, Acute upper respiratory infection, unspecified, Bronchitis, not specified as acute or chronic. - Condition is Stable. - Discharge Instructions: Acute Bronchitis, Adult, Atelectasis, Adult, Upper Respiratory Infection, Adult, Cool Mist Vaporizer, Incentive Spirometer, Cough, Adult, [id number]. - Prescriptions for Augmentin 250- 62.5 mg/5 mL Oral Suspension for Reconstitution - take 10 milliliter by ORAL route every 8 hours for 7 days; 210 milliliter. Albuterol Sulfate 2.5 mg /3 mL (0.083 %) Inhalation Solution for Nebulization - inhale 1 unit by NEBULIZATION route every 8 hours As needed; 1 box. prednisolone 15 mg/5 mL Oral Solution - take 15 milliliter by ORAL route once daily for 6 days with food; 90 milliliter. Albuterol Sulfate 90 mcg/actuation Inhalation - inhale 2 puff by INHALATION route every 4-6 hours; 1 Inhaler. Zofran ODT 4 mg Oral tablet,disintegrating - place 1 tablet by TRANSLINGUAL route every 8 hours; 20 tablet. - Medication Reconciliation Form, Thank You Letter, Antibiotic Education, Prescription Opioid Use form. - Follow up: Private Physician; When: 2 - 3 days; Reason: Recheck today's complaints, Continuance of care, Re-evaluation by your physician. Follow up: Micah Villasenor MD; When: 2 - 3 days; Reason: Recheck today's complaints, Re-evaluation by your physician. - Problem is new. - Symptoms have improved. Signatures: Dispatcher [employer] [facility] Zi Cerna MD MD cha Baxter, Heather, RN RN Vanessa Redman RN RN tw2 Corrections: (The following items were deleted from the chart) 14:55 13:51 CORONAVIRUS ordered. [facility] 15:58 15:33 09/07/2020 15:33 Discharged to Home. Impression: Atelectasis; Acute upper tw2 respiratory infection, unspecified; Bronchitis, not specified as acute or chronic. Condition is Stable. Forms are Medication Reconciliation Form, Thank You Letter, Antibiotic Education, Prescription Opioid Use. Follow up: Private Physician; When: 2 - 3 days; Reason: Recheck today's complaints, Continuance of care, Re-evaluation by your physician. Follow up: Micah Villasenor; When: 2 - 3 days; Reason: Recheck today's complaints, Re-evaluation by your physician. Problem is new. Symptoms have improved. sandy
--- NOTE | 2020-09-07 15:59 | ER ---
Nurse's Notes [facility] Name: Letty Hall Age: 25 yrs Sex: Female : 1995 Arrival Date: 09/07/2020 Time: 12:32 Bed 8 Private MD: Diagnosis: Atelectasis;Acute upper respiratory infection, unspecified;Bronchitis, not specified as acute or chronic Presentation: 09/07 12:36 Chief complaint: Had tonsillectomy and ear tubes yesterday, c/o SOB and SpO2 80s at home today. Coronavirus screen: At this time, the client does not indicate any symptoms associated with coronavirus-19. Ebola Screen: No symptoms or risks identified at this time. Initial Sepsis Screen: Does the patient meet any 2 criteria? No. Patient's initial sepsis screen is negative. Does the patient have a suspected source of infection? No. Patient's initial sepsis screen is negative. Risk Assessment: Do you want to hurt yourself or someone else? Patient reports no desire to harm self or others. Onset of symptoms was September 07, 2020. 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 - Social history:: Smoking status: Patient denies any tobacco usage or history of. - Family history:: not pertinent. Screenin:22 Abuse screen: Denies threats or abuse. Nutritional screening: No deficits noted. tw2 Tuberculosis screening: No symptoms or risk factors identified. Fall Risk None identified. Assessment: 12:50 Cardiovascular: Rhythm is regular. tw2 12:50 General: Appears in no apparent distress. obese, well groomed, Behavior is calm, tw2 cooperative, appropriate for age. Pain: Complains of pain in left leg and right leg and sore throat. Neuro: Level of Consciousness is awake, alert, obeys commands, Oriented to person, place, time, situation. Respiratory: Airway is patent Respiratory effort is even, unlabored, Respiratory pattern is regular, symmetrical, Breath sounds are clear. GI: No signs and/or symptoms were reported involving the gastrointestinal system. : No signs and/or symptoms were reported regarding the genitourinary system. Musculoskeletal: Range of motion: intact in all extremities. 13:33 Reassessment: xray at bedside a this time. tw2 14:00 Reassessment: Patient appears in no apparent distress at this time. No changes from tw2 previously documented assessment. Patient and/or family updated on plan of care and expected duration. Pain level reassessed. Patient is alert, oriented x 3, equal unlabored respirations, skin warm/dry/pink. 15:41 Reassessment: Patient appears in no apparent distress at this time. Patient and/or tw2 family updated on plan of care and expected duration. Pain level reassessed. Patient is alert, oriented x 3, equal unlabored respirations, skin warm/dry/pink. 15:58 Reassessment: Patient appears in no apparent distress at this time. No changes from tw2 previously documented assessment. Patient is alert, oriented x 3, equal unlabored respirations, skin warm/dry/pink. Patient states feeling better. Patient states symptoms have improved. Vital Signs: 12:36 BP 138 / 88; Pulse 88; Resp 20; Temp 98.2; Pulse Ox 98% on R/A; Pain 5/10; hb 14:00 BP 116 / 59; Pulse 88; Resp 18; Pulse Ox 100% on R/A; tw2 15:02 BP 114 / 92; Pulse 92; Resp 18; Pulse Ox 100% on R/A; tw2 15:39 BP 108 / 70; Pulse 107; Resp 18; Pulse Ox 98% on R/A; tw2 ED Course: 12:32 Patient arrived in ED. am2 12:38 Triage completed. hb 12:39 Arm band placed on. hb 12:50 Bed in low position. Call light in reach. Adult w/ patient. monitor technician on. Pulse tw2 ox on. NIBP on. Warm blanket given. 13:00 Inserted saline lock: 20 gauge in right antecubital area, using aseptic technique. tw2 ,using aseptic technique. Jono Mcmahan Blood collected. 13:03 Zi Cerna MD is Attending Physician. [facility] 13:32 Vanessa Redman, NYA is Primary Nurse. tw2 13:49 XRAY Chest (1 view) In Process Unspecified. EDMS 13:58 CT Chest For PE Angio In Process Unspecified. EDMS 14:29 US Extremity Venous W Compression Shane In Process Unspecified. EDMS 15:33 Micah Villasenor MD is Referral Physician. sandy 15:38 Blood Culture Adult (2) Sent. tw2 15:41 No provider procedures requiring assistance completed. tw2 15:58 IV discontinued, intact, bleeding controlled, No redness/swelling at site. Pressure tw2 dressing applied. Administered Medications: 14:40 Drug: SOLU-Medrol (methylPrednisoLONE) 125 mg Route: IVP; Site: right antecubital; tw2 15:39 Follow up: Response: No adverse reaction tw2 14:40 Drug: Xopenex (levalbuterol) 3.75 mg {Note: pt back from imaging at this time.} Route: tw2 Inhalation; 14:40 Drug: AtroVENT (ipratropium) Aerosol 0.5 mg Route: Inhalation; tw2 14:45 Drug: Pepcid (famotidine) 20 mg Route: IVP; Site: right antecubital; tw2 15:38 Follow up: Response: No adverse reaction tw2 14:52 Not Given (md discretion): predniSONE 40 mg PO once sandy 15:20 Drug: Rocephin (cefTRIAXone) 1 grams Route: IV; Rate: per protocol; Site: right tw2 antecubital; 15:39 Follow up: Response: No adverse reaction; IV Status: Completed infusion; IV Intake: [id number] 15:21 Not Given (Duplicate Order): Zosyn (piperacillin-tazobactam) 3.375 grams IVPB once over sandy 60 mins; (mix in NS 100 mL) Intake: 15:39 IV: 10ml; Total: 10ml. tw2 Outcome: 15:33 Discharge ordered by . [facility] 15:57 Discharged to home ambulatory, with significant other. tw2 15:57 Condition: stable 15:57 Discharge instructions given to patient, significant other, Instructed on discharge instructions, follow up and referral plans. medication usage, Demonstrated understanding of instructions, follow-up care, medications, Prescriptions given X 4. 15:58 Patient left the ED. tw2 Signatures: Dispatcher [employer] EDMS Zi Cerna MD MD cha Baxter, Heather, RN RN Vanessa Redman RN RN tw2 Karla Slater am2 Corrections: (The following items were deleted from the chart) 12:40 12:36 Chief complaint: Had adenoids and tonsils out yesterday, c/o SOB and SpO2 80s at home today.
[2020-09-07 16:36] VITALS: TEMP 98.2
[2020-09-07 16:40] VITALS: BP 108/70; O2SAT 98
--- NOTE | 2020-09-08 07:23 | EKG ---
Test Date: 2020-09-07 Test Time: 15:37:16 Prototype Carpenter: SAMANTHA MEASUREMENT RESULTS: Intervals: Rate: 87 WY: 112 QRSD: 78 QT: 376 QTc: 452 Drift: P: 43 WY: 112 QRS: 56 T: -7 INTERPRETIVE STATEMENTS: Normal sinus rhythm Nonspecific T wave abnormality Abnormal ECG Compared to ECG 02/21/2020 23:09:27 T-wave abnormality now present Sinus tachycardia no longer present Myocardial infarct finding no longer present Electronically Signed On 09-08-20 07:21:57 CDT by Thor Burrell
== END 2020-09-07 15:58 | disposition home or self-care (01) ==
LOC: ER 12:29
DX: J40 Bronchitis, not specified as acute or chronic (principal); J98.11 Atelectasis; J06.9 Acute upper respiratory infection, unspecified
CPT/HCPCS: 96365; 93005; 87040 ×2; 87088; 85025; 87086; 80048; 36415; 83735; 81025; 85610; 82565; 80076; 81003; 84484; 83880; 71275; 71045; 93970; 96375; 99285; Q9967; J0696; J2930; J2543; J7512

== ENCOUNTER 2020-09-11 11:50 | Emergency (ER) | payer OTHER ==
--- OUTSIDE RECORDS SUMMARY | 2020-09-11 11:53 | XMS REPORT | Continuity of Care Document ---
:[address] [facility] t Address [facility] 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 Me thodi yroidism yroidism 00:00: st 00 Hypocalcem Hypocalcem Disease Active 2016-05 [place] ia ia 0-12 Methodi 00:00: st 00 [...] Type Date Date Clinician haloperi DA Active MD [facility] dol 4-27 Clear 00:00: 00 [facility] vancomyc DA Active MD [facility] in 4-27 Clear 00:00: 00 [facility] Haloperi Propensi Active 2016-05 [place] ty to 0-15 Methodi adverse 00:00: st reaction 00 s to drug Vancomyc Propensi Active Other (See 2016-05 Red man Harrison ron in ty to Comments) 0-08 syndrome Metho di adverse 00:00: st reaction 00 s to drug Family History Family Member Diagnosis Comments Start Date Stop Date Source Maternal aunt Depression Aj Met hodist Maternal aunt Suicide Attempts [place] [facility] Natural mother Depression Aj Me thodist Natural mother Suicide Attempts [place] [facility] Social History Social Habit Start Date Stop Date Quantity Comments Source History of Cigarette Smoker Aj Alevism tobacco use Alcohol intake 2019-02-20 2019-02-20 Current drinker [place] [facility] 00:00:00 00:00:00 of alcohol (finding) Alcohol Comment 2019-02-19 2019-02-19 drinks casually, Sukhdev coughlin Alevism 00:00:00 00:00:00 once a month, 3 X a year Sex [birth year] At [birth year] Jean Marie Schmitt ethodist 00:00:00 00:00:00 Smoking Status Start Date Stop Date Source Current every day smoker 2019-02-20 00:00:00 Sukhdev Alex Medications Ordered Filled Start Stop Current Ordering [...] Future Scheduled 2020-12-09 INFLUENZA VACCINE [place] [facility] Test 00:00:00 [code = INFLUENZA VACCINE] Future Scheduled 2016-08-16 Screening for [facility] thodist Test 00:00:00 malignant neoplasm of cervix (procedure) [code = 027648759] Future Scheduled 2013-08-16 Hepatitis C [facility] hodist Test 00:00:00 screening (procedure) [code = 379600391] Future Scheduled 2011 COVID-19 VACCINE (1) Sukhdev ston Alevism Test 00:00:00 [code = COVID-19 VACCINE (1)] Encounters Start End Encounter Admission Attending Care Care Encounter Source Date/Time Date/Time Type Type Clinicians Facility Department ID 2020-05-22 2020-05-22 Emergency [facility] [id number] 16:43:00 20:04:00 Dao Abdullahi [id number] [place] [id number] [place] [id number] 2020-05-22 2020-05-22 Orders Doctor SIMON [id number] 00:00:00 00:00:00 Only Unassigned, MIKHAIL [id number] [facility] [place] [facility] [id number] 2019-08-02 2019-08-02 Telephone GWEN Davis [id number] 00:00:00 00:00:00 [facility] [employer] [id number] [place] [id number] As[place] [id number] nal [address] 2019-07-28 2019-07-28 Orders Doctor ALFRED [id number] 00:00:00 00:00:00 Only Unassigned, MIKHAIL [id number] [facility] [place] [facility] [id number] 2019-02-18 2019-02-21 Inpatient [facility] [id number] [place] 00:00:00 00:00:[address] Results Test Description Test Time Test Comments Results Result Comments Source SURGICAL PATH SPECIMENS 2020-09-11 08:10:00 Test Item Value Reference Range Interpretation Comme nts SURGICAL RUN DATE: [facility] 09/11/20 [place] - LAB PAGE 1 RUN TIME: 0810 SPECIMENS Specimen Inquiry RUN USER: INTERFACE (test code = SURG) PATIENT: LACI OQUENDO LOC: [facility] U #: [id number] AGE/SX: 25/ F ROOM: RE09/06/20REG DR: Rosalva Norris MD : 95 BED: DIS: STATUS: [facility] TLOC: SPEC #: [id number] RECD: STATUS: STACEY REAntonia #: [id number] EDWINA: 09/07/[address]: Rosalva Norris MD ENTERED: 09/10/20 SP TYPE: SURG SPEC OTHR DR: DOES_NOT KNOW No Primary or Family PhysicianORDERED: GROSS AND MICRO C ODES: [id number] - TONSIL, NOS COPIES TO: DOES_NOT KNOW No Primary [place] [id number] [address] PROCEDURES: GROSS AND MICRO (Incomplete) TISSUES: 1. TONSIL, NOS - Tonsil, left 2. TONSIL, NOS - Tonsil, right FINAL DIAGNOSIS Tonsil, left, tonsillectomy: Chronic tonsillitis. Tonsil, right, tonsil lectomy: Chronic tonsillitis. GROSS AND MICROSCOPIC GROSS DESCRIPTION: Received in for joon and labeled "left tonsil" is a 2.9 cm tonsil. Received i n formalin and labeled "right tonsil" is a 2.8 cm tonsil. Section code: (A) - Left tonsil; (B) - Right tonsil. MICROSCOPI C EXAMINATION: Both of the tonsils are expanded by varying sized and shaped reactive lymphoid follicles. 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 Positiv e results do not rule out bacterial infection or co -infection with other viru ses. Negative result s do not preclude SARS-C oV-2 infection andsh ould not be used as the frank e basis for patient managementdecis ions. Negative result s must be combined with otherclinical observations, p atient history, and epidemiological information . Detection of SARS-CoV-2 RNA may be affe cted bysample collec tion methods, storag e conditions, and /or stageof infection. Kajal l RNA mutations, vacc inations, antiviraltherap eutics, antibiotics, chemotherapeuti c orimmunosuppres mariel drugs have not been e valuated for effectson d etection. Results are for the identification of SARS-CoV-2 RNA usingthe [employer] M2000 Sy stem under the FDA Emergen cy UseAuthorizatio n. The testing is perf ormed by personneltraine d in the procedures for the [employer] M2000 molecular diagnostic SARS-CoV-2 assa y in vitro. PROTHROMBIN [id number] 14:33:00 Test Item Value Reference Range Interpretation [...] o prevent recurre nt infarct). THROMBOPLASTIN TIME [id number] 14:33:00 Test Item Value Reference Range Interpretation Comments THROMBOPLASTIN TIME 31.5 Seconds 25.0-39.5 N Ther apeutic PARTIAL (test code = Range: 50.4 - 88.3 PTT) Seconds Effective 08/24/2018 CBC W/AUTO [id number] 14:32:00 Test Item Value Reference Range Interpretation [...] REQUIRED (test code NO = MDIFF) PROTHROMBIN [id number] 14:31:00 Test Item Value Reference Range Interpretation [...] o prevent recurrent infar ct). THROMBOPLASTIN TIME [id number] 14:31:00 Test Item Value Reference Range Interpretation Comments THROMBOPLASTIN TIME PARTIAL (test Seconds 25.0-39.5 code = PTT) HCG SERUM [id number] 14:27:00 Test Item Value Reference Range Interpretation Comments HCG SERUM QUAL (test code = SERUM NEGATIVE NEGATIVE HCGQL)
[2020-09-11 16:33] LABS: Absolute Lymphocytes (CBC) 2.5 K/uL (0.7-4.9); Basophils % 0.6 % (0-1.3); Hematocrit 41.9 % (36.0-45.0); MPV 9.1 fL (7.6-11.3); RBC Red Blood Cell Count 4.95 M/uL (3.86-4.86)
[2020-09-11 16:52] LABS: Urine Blood 2+ (Negative); Urine Glucose Negative (Negative); Urine Protein Trace (Negative); Urine Specific Gravity >=1.030 (1.005-1.030); Urine pH 5.5 (5.0-7.0)
[2020-09-11 17:01] LABS: ALT/SGPT 99 U/L (12-78); AST/SGOT 102 U/L (15-37); Albumin 3.1 g/dL (3.4-5.0); Alkaline Phosphatase 97 U/L (45-117); BUN Blood Urea Nitrogen 14 mg/dL (7-18); Bicarbonate 28 mmol/L (21-32); Bilirubin Direct 0.2 mg/dL (0-0.2); Bilirubin Total 0.6 mg/dL (0.2-1.0); Glucose Level 85 mg/dL (74-106); Lipase 66 U/L (73-393); Potassium 3.9 mmol/L (3.5-5.1); Protein, Total 8.2 g/dL (6.4-8.2); Sodium Level 139 mmol/L (136-145)
[2020-09-11] MEDS ORDERED: NA CHLORIDE 0.9% 1,000 ML ONE (17:46)
[2020-09-11 18:05] LABS: Urine Specific Gravity/Preg >1.030 (1.005-1.030)
--- NOTE | 2020-09-11 18:09 | ER ---
Nurse's Notes [facility] Name: Letty Hall Age: 25 yrs Sex: Female : 1995 Arrival Date: 09/11/2020 Time: 11:52 Bed 25 Private MD: Diagnosis: Diarrhea, unspecified Presentation: 09/11 12:18 Chief complaint: Patient states: left here on Thursday, since then my doctor took me off tw2 the antibiotic and prednisone. i am still having diarrhea and i feel extremely dehydrated. i have tried immodium. i am still taking the hydrocodone and breathing treatments. i had my tonsils out and tubes put in my ears. my head is hurting so much from the diarrhea and i am dehydrated. Coronavirus screen: vomiting. Client presents with at least one sign or symptom that may indicate coronavirus-19. Standard/surgical mask placed on the client. Provider contacted for isolation considerations. Ebola Screen: Patient denies travel to an Ebola-affected area in the 21 days before illness onset. Initial Sepsis Screen: Does the patient meet any 2 criteria? HR > 90 bpm. No. Patient's initial sepsis screen is negative. Does the patient have a suspected source of infection? No. Patient's initial sepsis screen is negative. Risk Assessment: Do you want to hurt yourself or someone else? Patient reports no desire to harm self or others. Onset of symptoms was September 11, 2020. 12:18 Method Of Arrival: Ambulatory tw2 12:18 Acuity: BHAKTI 2 tw2 Triage Assessment: 12:22 General: Appears uncomfortable, obese, well groomed, Behavior is calm, cooperative, tw2 appropriate for age. GI: Reports nausea. Historical: - Allergies: 12:22 Morphine (Upset stomach); tw2 12:22 Haldol; tw2 12:22 VANCOMYCIN AND DERIVATIVES; tw2 - Home Meds: 12:22 Vitamin D3 Oral [Active]; Methocarbamol Oral [Active]; Potassium Chloride 75 mg Oral 1 tw2 tab daily as needed [Active]; magnesium oxide 400 mg Oral tab daily [Active]; calcium carbonate 500 mg calcium (1,250 mg) Oral tab 2500 mg four times a day [Active]; - PMHx: 12:22 Anxiety; Depression; GERD; hypocalcemia; hypoparathyroidism; psuedo cranial tw2 hypertension; Sinus Tachycardia; - PSHx: 12:22 Tonsillectomy; Ear Tubes; tw2 - Immunization history:: Adult Immunizations. - Social history:: Smoking status: . Screenin:22 Abuse screen: Denies threats or abuse. Nutritional screening: No deficits noted. vg1 Tuberculosis screening: No symptoms or risk factors identified. Fall Risk No fall in past 12 months (0 pts). No secondary diagnosis (0 pts). IV access (20 points). Ambulatory Aid- None/Bed Rest/Nurse Assist (0 pts). Gait- Normal/Bed Rest/Wheelchair (0 pts) Mental Status- Oriented to own ability (0 pts). Total Spence Fall Scale indicates No Risk (0-24 pts). Assessment: 16:05 General: Appears in no apparent distress. comfortable, Behavior is calm, cooperative. vg1 Pain: Complains of pain in abdomen Pain currently is 7 out of 10 on a pain scale. Pain began 2-3 days ago. Neuro: Level of Consciousness is awake, alert, obeys commands, Oriented to person, place, time, situation. Cardiovascular: Patient's skin is warm and dry. Respiratory: Airway is patent Respiratory effort is even, unlabored. GI: Reports diarrhea, nausea. : No signs and/or symptoms were reported regarding the genitourinary system. EENT: white substance present on tongue.. Throat is reddened. Derm: Skin is intact, is healthy with good turgor. Musculoskeletal: Circulation, motion, and sensation intact. 16:58 Reassessment: Patient appears in no apparent distress at this time. No changes from vg1 previously documented assessment. Patient and/or family updated on plan of care and expected duration. Pain level reassessed. Patient is alert, oriented x 3, equal unlabored respirations, skin warm/dry/pink. 18:07 Reassessment: Patient appears in no apparent distress at this time. No changes from vg1 previously documented assessment. 19:14 Reassessment: Patient appears in no apparent distress at this time. Patient and/or vg1 family updated on plan of care and expected duration. Pain level reassessed. Patient is alert, oriented x 3, equal unlabored respirations, skin warm/dry/pink. Patient states feeling better. Vital Signs: 12:18 BP 125 / 91; Pulse 95; Resp 17; Temp 97.9; Pulse Ox 99% on R/A; Weight 117.93 kg (R); tw2 Height 5 ft. 5 in. (165.10 cm); Pain 9/10; 16:10 BP 109 / 69; Pulse 94; Resp 16; Pulse Ox 98% on R/A; vg1 16:49 BP 117 / 65 Supine; Pulse 88; vg1 16:51 BP 109 / 67 Sitting; Pulse 88; vg1 16:53 BP 118 / 71 Standing; Pulse 99; vg1 18:07 BP 111 / 74; Pulse 99; Resp 16; Pulse Ox 99% on R/A; vg1 19:14 BP 100 / 60; Pulse 98; Resp 16; Pulse Ox 100% on R/A; vg1 12:18 Body Mass Index 43.27 (117.93 kg, 165.10 cm) tw2 ED Course: 11:52 Patient arrived in ED. mr 12:20 Triage completed. tw2 12:23 Arm band placed on. tw2 14:54 Kathy Beebe FNP-C is PHCP. kb 14:54 Zi Cerna MD is Attending Physician. kb 15:18 Kathy Beebe FNP-C is PHCP. kb 15:18 Zi Cerna MD is Attending Physician. kb 16:17 Initial lab(s) drawn, by ED staff, sent to lab. Inserted saline lock: 20 gauge in right vg1 antecubital area, using aseptic technique. Blood collected. 16:20 Jordyn Myles, RN is Primary Nurse. vg1 16:22 Patient has correct armband on for positive identification. Placed in gown. Bed in low vg1 position. Call light in reach. Side rails up X 1. Adult w/ patient. 19:16 No provider procedures requiring assistance completed. IV discontinued, intact, vg1 bleeding controlled, No redness/swelling at site. Pressure dressing applied. Administered Medications: 17:37 Drug: NS 0.9% 1000 ml Route: IV; Rate: 1000 ml; Site: right antecubital; vg1 19:13 Follow up: IV Status: Completed infusion; IV Intake: 1000ml vg1 17:38 Not Given (Patient Refused): Calcium Gluconate 1 grams IVPB once over 60 mins; (mix in kb NS 100 mL) 18:06 Drug: GI Cocktail without - (Maalox Suspension 30 ml, Lidocaine Liquid 2 % 15 vg1 ml) Route: PO; 19:13 Follow up: Response: No adverse reaction vg1 19:13 Drug: DiFLUcan (fluconazole) 150 mg Route: PO; vg1 19:13 Follow up: Response: Medication administered at discharge. vg1 Intake: 19:13 IV: 1000ml; Total: 1000ml. vg1 Outcome: 18:09 Discharge ordered by MD. fuchs 19:14 Patient left the ED. vg1 19:16 Discharged to home ambulatory, with family. vg1 19:16 Condition: stable 19:16 Discharge instructions given to patient, Instructed on discharge instructions, follow up and referral plans. Demonstrated understanding of instructions, follow-up care. Signatures: Kathy Beebe, TOÑAC PRODUCTION UTILITY WORKER-Zeinab Dahl mr Vanessa Redman, RN RN tw2 Jordyn Myles RN RN vg1 Corrections: (The following items were deleted from the chart) 19:14 19:14 Reassessment: Patient appears in no apparent distress at this time. Patient vg1 and/or family updated on plan of care and expected duration. Pain level reassessed. Patient is alert, oriented x 3, equal unlabored respirations, skin warm/dry/pink. vg1
--- NOTE | 2020-09-11 18:09 | EDPHYS ---
Physician Documentation [facility] Name: Letty Hall Age: 25 yrs Sex: Female : 1995 Arrival Date: 09/11/2020 Time: 11:52 Bed 25 Private MD: KARAN Physician Zi Cerna HPI: 09/11 18:02 This 25 yrs old Female presents to ER via Ambulatory with complaints of kb Diarrhea, Back Pain, Dehydration. 18:02 The patient presents to the emergency department with diarrhea. Onset: The kb symptoms/episode began/occurred 3 day(s) ago. Possible causes: antibiotics. The symptoms are aggravated by food , The symptoms are alleviated by nothing. Associated signs and symptoms: Pertinent positives: diarrhea, Pertinent negatives: abdominal pain, anorexia, belching, constipation, dysuria, fever, flatulence, GI bleeding, hematuria, nausea, vaginal discharge, vomiting. Severity of symptoms: At their worst the symptoms were moderate in the emergency department the symptoms are unchanged. The patient has not experienced similar symptoms in the past. The patient has not recently seen a physician. Pt reports she was here last week and prescribed antibiotics. Started having diarrhea after starting them, followed up with ENT and was told to stop the antibiotics because that is what could have been causing the diarrhea. States she has continued to have diarrhea and she hasn't eaten or had anything to drink because her throat is still hurting from tonsillectomy last week and it causes more diarrhea. ENT recommended that she come to the ER for eval to make sure she wasn't severely dehydrated. Historical: - Allergies: 12:22 Morphine (Upset stomach); tw2 12:22 Haldol; tw2 12:22 VANCOMYCIN AND DERIVATIVES; tw2 - Home Meds: 12:22 Vitamin D3 Oral [Active]; Methocarbamol Oral [Active]; Potassium Chloride 75 mg Oral 1 tw2 tab daily as needed [Active]; magnesium oxide 400 mg Oral tab daily [Active]; calcium carbonate 500 mg calcium (1,250 mg) Oral tab 2500 mg four times a day [Active]; - PMHx: 12:22 Anxiety; Depression; GERD; hypocalcemia; hypoparathyroidism; psuedo cranial tw2 hypertension; Sinus Tachycardia; - PSHx: 12:22 Tonsillectomy; Ear Tubes; tw2 - Immunization history:: Adult Immunizations. - Social history:: Smoking status: . ROS: 18:01 Constitutional: Negative for fever, chills, and weight loss, Cardiovascular: Negative kb for chest pain, palpitations, and edema, Respiratory: Negative for shortness of breath, cough, wheezing, and pleuritic chest pain, MS/Extremity: Negative for injury and deformity, Skin: Negative for injury, rash, and discoloration, Neuro: Negative for headache, weakness, numbness, tingling, and seizure. 18:01 ENT: Positive for sore throat. 18:01 Abdomen/GI: Positive for diarrhea, Negative for nausea and vomiting. Exam: 18:01 Constitutional: This is a well developed, well nourished patient who is awake, alert, kb and in no acute distress. Head/Face: Normocephalic, atraumatic. Cardiovascular: Regular rate and rhythm with a normal S1 and S2. No gallops, murmurs, or rubs. No pulse deficits. Respiratory: Respirations even and unlabored. No increased work of breathing, no retractions or nasal flaring. Abdomen/GI: Soft, non-tender. No distention Skin: Warm, dry with normal turgor. Normal color. MS/ Extremity: Pulses equal, no cyanosis. Neurovascular intact. Full, normal range of motion. Neuro: Awake and alert, GCS 15, oriented to person, place, time, and situation. Moves all extremities. Normal gait. Vital Signs: 12:18 BP 125 / 91; Pulse 95; Resp 17; Temp 97.9; Pulse Ox 99% on R/A; Weight 117.93 kg (R); tw2 Height 5 ft. 5 in. (165.10 cm); Pain 9/10; 16:10 BP 109 / 69; Pulse 94; Resp 16; Pulse Ox 98% on R/A; vg1 16:49 BP 117 / 65 Supine; Pulse 88; vg1 16:51 BP 109 / 67 Sitting; Pulse 88; vg1 16:53 BP 118 / 71 Standing; Pulse 99; vg1 18:07 BP 111 / 74; Pulse 99; Resp 16; Pulse Ox 99% on R/A; vg1 19:14 BP 100 / 60; Pulse 98; Resp 16; Pulse Ox 100% on R/A; vg1 12:18 Body Mass Index 43.27 (117.93 kg, 165.10 cm) tw2 MDM: 14:54 Patient medically screened. kb 15:18 Patient medically screened. kb 18:01 Data reviewed: vital signs, nurses notes. Data interpreted: Pulse oximetry: on room air kb is 98 %. Interpretation: normal. Counseling: I had a detailed discussion with the patient and/or guardian regarding: the historical points, exam findings, and any diagnostic results supporting the discharge/admit diagnosis, lab results, the need for outpatient follow up, a family practitioner, to return to the emergency department if symptoms worsen or persist or if there are any questions or concerns that arise at home. 18:08 ED course: Pt does not want calcium infusion. States "it will go back up when all of kb this is over.". 09/11 14:57 Order name: Basic Metabolic Panel; Complete Time: 17:24 kb 09/11 14:57 Order name: CBC with Diff; Complete Time: 16:38 kb 09/11 14:57 Order name: Hepatic Function; Complete Time: 17:24 kb 09/11 14:57 Order name: Lipase; Complete Time: 17:24 kb 09/11 16:52 Order name: Urine Dipstick-Ancillary; Complete Time: 17:24 EDMS 09/11 16:55 Order name: Urine --Ancillary (enter results); Complete Time: 18:09 bd 09/11 14:57 Order name: IV Saline Lock; Complete Time: 16:26 kb 09/11 14:57 Order name: Labs collected and sent; Complete Time: 16:26 kb 09/11 14:58 Order name: Urine Dipstick-Ancillary (obtain specimen); Complete Time: 16:26 kb 09/11 15:19 Order name: Orthostatics; Complete Time: 16:57 kb Administered Medications: 17:37 Drug: NS 0.9% 1000 ml Route: IV; Rate: 1000 ml; Site: right antecubital; vg1 19:13 Follow up: IV Status: Completed infusion; IV Intake: 1000ml vg1 17:38 Not Given (Patient Refused): Calcium Gluconate 1 grams IVPB once over 60 mins; (mix in kb NS 100 mL) 18:06 Drug: GI Cocktail without - (Maalox Suspension 30 ml, Lidocaine Liquid 2 % 15 vg1 ml) Route: PO; 19:13 Follow up: Response: No adverse reaction vg1 19:13 Drug: DiFLUcan (fluconazole) 150 mg Route: PO; vg1 19:13 Follow up: Response: Medication administered at discharge. vg1 Disposition: 09/12 11:19 Co-signature as Attending Physician, Zi Cerna MD I agree with the assessment and [facility] plan of care. Disposition: 09/11/20 18:09 Discharged to Home. Impression: Diarrhea, unspecified. - Condition is Stable. - Discharge Instructions: Food Choices to Help Relieve Diarrhea, Adult, Diarrhea, Adult, [id number]-[id number]. - Medication Reconciliation Form, Thank You Letter, Antibiotic Education, Prescription Opioid Use form. - Follow up: Emergency Department; When: As needed; Reason: Worsening of condition. Follow up: Private Physician; When: 2 - 3 days; Reason: Recheck today's complaints, Continuance of care, Re-evaluation by your physician. Signatures: Dispatcher [employer] EDMS Kathy Beebe, MILL TENDER-C JANAE-Zi Horton MD MD cha Wise, Tara, RN RN tw2 Jordyn Myels, RN RN vg1 Corrections: (The following items were deleted from the chart) 09/11 19:14 18:09 09/11/2020 18:09 Discharged to Home. Impression: Diarrhea, unspecified. Condition vg1 is Stable. Forms are Medication Reconciliation Form, Thank You Letter, Antibiotic Education, Prescription Opioid Use. Follow up: Emergency Department; When: As needed; Reason: Worsening of condition. Follow up: Private Physician; When: 2 - 3 days; Reason: Recheck today's complaints, Continuance of care, Re-evaluation by your physician. kb
[2020-09-11] MEDS ORDERED: LIDOCAINE VISCOUS 2% SOLN 15 ML UDC ONE (18:21)
[2020-09-11] MEDS ORDERED: MAGNES/ALUMIN/SIMET 30ML UCUP ONE (18:21)
[2020-09-11 19:22] VITALS: TEMP 97.9
[2020-09-11] MEDS ORDERED: FLUCONAZOLE 100 MG TAB ONE (19:24)
[2020-09-11 19:34] VITALS: BP 100/60; O2SAT 100
== END 2020-09-11 19:14 | disposition home or self-care (01) ==
LOC: ER 11:50
DX: R19.7 Diarrhea, unspecified (principal); Z98.890 Other specified postprocedural states; I10 Essential (primary) hypertension; F41.8 Other specified anxiety disorders; E20.9 Hypoparathyroidism, unspecified; Z88.3 Allergy status to other anti-infective agents; Z88.5 Allergy status to narcotic agent
CPT/HCPCS: 85025; 80048; 36415; 81025; 80076; 81003; 83690; J7030; 96360; 96361; 99284

== ENCOUNTER 2021-06-29 07:15 | Emergency (ER) | payer OTHER, SELFPAY ==
--- OUTSIDE RECORDS SUMMARY | 2021-06-29 07:18 | XMS REPORT | Continuity of Care Document ---
:1995 Author Organization [facility] t Address [address] [place] [address] Care Team Providers Name Role Phone Juanito Norris Attending Clinician Unavailable PENNIE_Delvin Attending Clinician Unavailable Hyacinth Brown Attending Clinician [phone] Eliza Hines Attending Clinician Doctor Unassigned, Name Attending Clinician Unavailable Dotty_Kenia Attending Clinician Unavailable Susan CARDOSO Attending Clinician AIDEE Attending Clinician Unavailable KELLY Admitting Clinician Unavailable Dotty_Pappas Admitting Clinician Unavailable DANNIELLE Admitting Clinician Unavailable Payers Payer Name Policy Type Policy Number Effective Date Expiration Date S jeremy [place] - [id number] [facility] 3 (O) [place] WOMEN'S [id number] HEALTH PROGRAM (MEDICAID) Problems Condition Condition Condition Status Onset Resolution Last Treating Co mments Source Name Details Category Date Date Treatment Clinician Date Mastoiditi Mastoiditi Disease Active U nivers s of both s of both 607 ity of sides sides 00:00: Medical Branch 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 00:00: Medical Branch 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 U nivers r cerebri r cerebri 0-12 ity of 00:00: Medical Branch Obesity Obesity Disease Active Univers (BMI (BMI 7-28 ity of 30-39.9) 30-39.9) 00:00: Medical Branch Blurred Blurred Disease Active Univers vision vision 1-15 ity of 00:00: Medical Branch Allergies, Adverse Reactions, Alerts Allergy Allergy Status Severity Reaction(s) Onset Inactive Treating Comm ents Source Name Type Date Date Clinician haloperi DA Active [place] [facility] dol 4-27 Clear 00:00: [place] 00 [facility] vancomyc DA Active [place] [facility] in 4-27 Clear 00:00: [place] 00 [facility] haloperi DA Active [place] [facility] dol 4-27 Clear 00:00: [place] [facility] vancomyc DA Active [place] [facility] in 4-27 Clear 00:00: [place] 00 [facility] Haloperi Propensi Active Anaphylaxis U nivers dol ty to 5- ity of Lactate adverse 00:00: [place] reaction Medical s Branch HALOPERI DRUG Active Anaphylaxis Uni vers DOL INGREDI 5 ity of LACTATE 00:00: Medical Branch Morphine Propensi Active Other - See Swelling , Univers ty to comments 7-28 pain ity of adverse 00:00: [place] reaction Medical s Branch Vancomyc Propensi Active Unknown - "gives me Univers in ty to See comments 12-05 [place] ity of adverse 00:00: syndrome" [place] reaction 00 Medical s Branch MORPHINE DRUG Active Other-Cmnt Univ ers INGREDI 12-05 ity of 00:00: [place] 00 Medical Branch VANCOMYC DRUG Active Unknown-Cmnt Un leonarda IN INGREDI 12-05 ity of 00:00: [place] 00 Medical Branch Social History Social Habit Start Date Stop Date Quantity Comments Source Sex Assigned At [facility] Exposure to Yes University of SARS-CoV-2 (event) [facility] History of tobacco Cigarette Smoker University of use [facility] Alcohol Comment occasional [facility] Tobacco use and 2020-05-22 2020-05-22 Current user Univers ity of exposure 00:00:00 00:00:00 [facility] Cigarettes smoked 2020-05-22 2020-05-22 Univers ity of current (pack per 00:00:00 00:00:00 [facility] ) - Reported Branch Alcohol intake 2020-05-22 2020-05-22 Current drinker Unive rsity of 00:00:00 00:00:00 of alcohol [facility] (finding) [place] Smoking Status Start Date Stop Date Source Current every day smoker 2020-05-22 00:00:00 Uni versity of [facility] Medications Ordered Filled Start Stop Current Ordering Indication Dosage Frequency Signature Comments Components Source Medication Medication Date Date Medication? Clinician (SIG) Name Name HYDROcodone 2020- No 1{tbl} 1 tablet, Univers -acetaminop 05-23 Oral, ity of hen (NORCO 02:30: 01:27 ONCE, 1 [place] 5) 5-325 mg 00 :00 dose, Tue Med ical tablet 1 05/22/20 at [facility] h tablet 2030, LAMIN iohexol 2020- No 120mL 120 mL, Unive rs (OMNIPAQUE 05-23 Intravenou it y of 350 01:00: 00:38 s, ONCE, 1 [place] BULK-100 00 :00 dose, Tue Medica l mL) 05/22/20 at Branch injection 1900, 120 mL Routine NaCl 0.9% 2020- No 1000mL at 999 Uni vers (NS) bolus 1-12 01-13 mL/hr, ity of infusion 23:30: 01:55 1,000 mL, [place] as 1,000 mL 00 :00 IV Medical Infusion, Branch ONCE, 1 dose, 05/22/20 at 1730, LAMIN dicyclomine Yes [id number] 10mg Take 1 Univers (BENTYL) 10 1-12 capsule by it y of mg capsule 00:00: mouth [place] (four) Medical times Branch daily as needed for Abdominal pain. ondansetron Yes [id number] 4mg Take 1 Univers 4 mg 1-12 tablet by ity of disintegrat 00:00: mouth [place] ing tablet 00 every 12 Medic al (twelve) Branch hours as needed for Nausea and Vomiting (N/V). acetaminoph 2020- No 4647 1{tbl} Take 1 U nivers en-codeine -12 -20 tablet by ity of (TYLENOL-CO 00:00: 05:59 [place] DEINE #3) 00 :00 every 6 Medical 300-30 mg (six) Branch tablet hours as needed for Pain (scale 7-10) for up to 7 days. Indication s: acute pain [facility] 2017-05 Yes Take by Un leonarda ORAL 0-03 mouth. ity of 20:28: [address] 2017-05 Yes Take by Un leonarda ORAL 0-03 mouth. ity of 20:28: [address] 2017-05 Yes Take by Un leonarda ORAL 0-03 mouth. ity of 20:28: [address] GUAIFENESIN 2017-05 Yes Take by Un leonarda ORAL 0-03 mouth. ity of 20:28: [address] CALCIUM 2017-05 Yes 2500mg Take 2,500 Un leonarda CARBONATE 0-03 mg by ity of (TUMS ORAL) 20:25: mouth 2 [place] 59 (two) Medical times Branch daily. CALCIUM 2017-05 Yes 2500mg Take 2,500 Un leonarda CARBONATE 0-03 mg by ity of (TUMS ORAL) 20:25: mouth 2 [place] 59 (two) Medical times Branch daily. CALCIUM 2017-05 Yes 2500mg Take 2,500 Un leonarda CARBONATE 0-03 mg by ity of (TUMS ORAL) 20:25: mouth 2 [place] 59 (two) Medical times Branch daily. CALCIUM 2018- Yes 2500mg Take 2,500 Un leonarda CARBONATE 0-03 mg by ity of (TUMS ORAL) 20:25: mouth 2 [place] 59 (two) Medical times Branch daily. clonazePAM 2018-0 Yes 1mg Take 1 mg Un leonarda (KLONOPIN) 6-08 by mouth 3 ity of 1 mg tablet 00:59: (three) [place] 04 times Medical daily. Branch acetaZOLAMI 2018-0 Yes 300mg Take 300 U nivers DE 250 mg 6-08 mg by ity of tablet 00:59: mouth 2 [place] 04 (two) Medical times Branch daily. vilazodone 2018-0 Yes 20mg Take 20 mg U nivers (VIIBRYD) 6-08 by mouth ity of 20 mg 00:59: daily. [place] [address] Medical Branch vortioxetin 2017-0 Yes Take by Un leonarda e 10 mg Tab 6-08 mouth ity of 00:59: daily. [place] [address] Medical Branch topiramate 2017-0 Yes 25mg Take 25 mg U nivers (TOPAMAX) 6-08 by mouth ity of 25 mg 00:59: daily. [place] [id number] Medical Branch magnesium 2017-0 Yes 400mg Take 400 Uni vers oxide 400 6-08 mg by ity of mg tablet 00:59: mouth [place] 04 daily. Medical Branch cholecalcif 0 Yes 1000U Take 1,000 Univers hira, 6-08 Units by ity of vitamin D3, 00:59: mouth [place] (VITAMIN 04 daily. Medical D3) 1,000 Branch unit tablet POTASSIUM 20180 Yes 75mg 75 mg Univers CHLORIDE 6-08 daily. ity of MISC 00:59: Indication 04 s: OTC Medical Branch clonazePAM 2018-0 Yes 1mg Take 1 mg Un leonarda (KLONOPIN) 6-08 by mouth 3 ity of 1 mg tablet 00:59: (three) [place] 04 times Medical daily. Branch acetaZOLAMI 2018-0 Yes 300mg Take 300 U nivers DE 250 mg 6-08 mg by ity of tablet 00:59: mouth 2 [place] 04 (two) Medical times Branch daily. vilazodone 2018-0 Yes 20mg Take 20 mg U nivers (VIIBRYD) 6-08 by mouth ity of 20 mg 00:59: daily. [place] [address] Medical Branch vortioxetin 2017-0 Yes Take by Un leonarda e 10 mg Tab 6-08 mouth ity of 00:59: daily. [place] [address] Medical Branch topiramate Yes 25mg Take 25 mg U nivers (TOPAMAX) 6-08 by mouth ity of 25 mg 00:59: daily. [place] tablet Medical Branch magnesium 2017-0 Yes 400mg Take 400 Uni vers oxide 400 6-08 mg by ity of mg tablet 00:59: mouth [place] 04 daily. Medical Branch cholecalcif Yes 1000U Take 1,000 Univers hira, 6-08 Units by ity of vitamin D3, 00:59: mouth (VITAMIN 04 daily. Medical D3) 1,000 Branch unit tablet POTASSIUM Yes 75mg 75 mg Univers CHLORIDE 6-08 daily. ity of MISC 00:59: Indication s: OTC Medical Branch clonazePAM 0 Yes 1mg Take 1 mg Un leonarda (KLONOPIN) 6-08 by mouth 3 ity of 1 mg tablet 00:59: (three) [place] 04 times Medical daily. Branch acetaZOLAMI Yes 300mg Take 300 U nivers DE 250 mg 6-08 mg by ity of tablet 00:59: mouth 2 (two) Medical times Branch daily. vilazodone Yes 20mg Take 20 mg U nivers (VIIBRYD) 6-08 by mouth ity of 20 mg 00:59: daily. [place] [address] Medical Branch vortioxetin 0 Yes Take by Un leonarda e 10 mg Tab 6-08 mouth ity of 00:59: daily. [place] [address] Medical Branch topiramate 0 Yes 25mg Take 25 mg U nivers (TOPAMAX) 6-08 by mouth ity of 25 mg 00:59: daily. [place] tablet Medical Branch magnesium 2017-0 Yes 400mg Take 400 Uni vers oxide 400 6-08 mg by ity of mg tablet 00:59: mouth daily. Medical Branch cholecalcif 0 Yes 1000U Take 1,000 Univers hira, 6-08 Units by ity of vitamin D3, 00:59: mouth [place] (VITAMIN 04 daily. Medical D3) 1,000 Branch unit tablet POTASSIUM 0 Yes 75mg 75 mg Univers CHLORIDE 6-08 daily. ity of MISC 00:59: Indication [place] [address] s: OTC Medical Branch clonazePAM 2017-0 Yes 1mg Take 1 mg Un leonarda (KLONOPIN) 6-08 by mouth 3 ity of 1 mg tablet 00:59: (three) [place] 04 times Medical daily. Branch acetaZOLAMI 2018 Yes 300mg Take 300 U nivers DE 250 mg 6-08 mg by ity of tablet 00:59: mouth 2 [place] 04 (two) Medical times Branch daily. vilazodone 0 Yes 20mg Take 20 mg U nivers (VIIBRYD) 6-08 by mouth ity of 20 mg 00:59: daily. [place] [address] Medical Branch vortioxetin 0 Yes Take by Un leonarda e 10 mg Tab 6-08 mouth ity of 00:59: daily. [place] [address] Medical Branch topiramate 2018- Yes 25mg Take 25 mg U nivers (TOPAMAX) 6-08 by mouth ity of 25 mg 00:59: daily. [place] tablet Medical [place] magnesium 2017-0 Yes 400mg Take 400 Uni vers oxide 400 6-08 mg by ity of mg tablet 00:59: mouth [place] 04 daily. Medical Branch cholecalcif Yes 1000U Take 1,000 Univers hira, 6-08 Units by ity of vitamin D3, 00:59: mouth [place] (VITAMIN 04 daily. Medical D3) 1,000 Branch unit tablet POTASSIUM Yes 75mg 75 mg Univers CHLORIDE 6-08 daily. ity of MISC 00:59: Indication [place] [address] s: OTC Medical Branch Vital Signs Vital Name Observation Time Observation Value Comments Source Systolic blood 2020-05-23 01:36:00 143 mm[Hg] Univer sity of pressure [facility] Diastolic blood 2020-05-23 01:36:00 99 mm[Hg] Unive rsity of pressure [facility] Heart rate 2020-05-23 01:36:00 94 /min Universi ty of [place] [facility] Respiratory rate 2020-05-23 01:36:00 18 /min Univ ersity of [facility] Oxygen saturation in 2020-05-23 01:36:00 100 /min [facility] Arterial blood by [facility] Pulse oximetry Branch Body temperature 2020-05-23 01:15:52 37 Loli [facility] Body height 2020-05-22 22:41:00 165.1 cm [facility] Body weight 2020-05-22 22:41:00 127.007 kg [facility] BMI 2020-05-22 22:41:00 46.59 kg/m2 [facility] Systolic blood 2020-05-23 01:36:00 143 mm[Hg] Univer sity of pressure [facility] Diastolic blood 2020-05-23 01:36:00 99 mm[Hg] [facility] Heart rate 2020-05-23 01:36:00 94 /min [facility] Respiratory rate 2020-05-23 01:36:00 18 /min [facility] Oxygen saturation in 2020-05-23 01:36:00 100 /min [facility] Arterial blood by [facility] Pulse oximetry [place] Body temperature 2020-05-23 01:15:52 37 [facility] Body height 2020-05-22 22:41:00 165.1 cm [facility] Body weight 2020-05-22 22:41:00 127.007 kg [facility] BMI 2020-05-22 22:41:00 46.59 kg/m2 [facility] Procedures Procedure Date / Time Performing Clinician Source Performed CT ABDOMEN PELVIS W 2020-05-23 00:46:11 Dao Nicolas [facility] POCT TEST 2020-05-23 00:09:00 Dao Nicolas [facility] LIPASE 2020-05-22 23:59:[address] [facility] COMP. METABOLIC PANEL 2020-05-22 23:59:00 Dao Nicolas [facility] ([id number]) [facility] CBC WITH DIFF 2020-05-22 23:59:[address] [facility] URINALYSIS 2020-05-22 23:59:[address] [facility] CONSENT/REFUSAL FOR 2020-05-22 22:30:18 Doctor [facility]assigned, [facility] Name Medical Branch AUTHORIZATION FOR 2019-07-28 05:01:00 Doctor Unassigned, No [facility] OF PHI Name Medical Branch Encounters Start End Encounter Admission Attending Care Care Encounter Source Date/Time Date/Time Type Type Clinicians Facility Department ID 2021-03-09 Emergency [facility] [id number] Univers 16:53:19 ity [facility] [place] [facility] 2020-09-06 Inpatient Hu, Rosalva [facility]AC[facility] DAYS [id number] [facility] 09:45:00 [id number] [facility] 2020-09-04 Inpatient Hu, Rosalva [facility]ACL DAYS [id number] [facility] 09:30:00 [id number] [facility] 2021-02-28 2021-02-28 Outpatient [facility] [address] [place] 10:39:00 10:39:00 _L 1021 [facility] 2021-02-28 2021-02-28 Outpatient [facility] d5a [id number] 00:00:00 00:00:00 , Nisa [id number] Hyacinth [id number] 2020-11-21 2020-11-21 Outpatient [facility] [address] [place] 01:00:00 01:00:00 _L 1020 [facility] 2020-11-21 2020-11-21 Outpatient [facility] 107 [place] 01:00:00 01:00:00 _L 0714 [facility] 2020-11-20 2020-11-20 Outpatient [facility] [address] [place] 06:10:00 06:10:00 _L 0713 [facility] 2020-11-20 2020-11-20 Outpatient [facility] 58a [id number] 00:00:00 00:00:00 , Nisa [id number] Hyacinth [id number] 2020-05-22 2020-05-22 Emergency Sivan, [facility] [id number] Univers 16:43:00 20:04:00 Dao Eliza Bradly [id number] i ty of [place] 4[place]2.7.2.686 [place] [id number] [facility] 084 [place] 2020-05-22 2020-05-22 Emergency Sivan, [facility] [id number] 16:43:00 20:04:00 Dao Kay Bradly [id number] [place] [id number] [place] [id number] [facility] 2020-05-22 2020-05-22 Orders Doctor ALFRED [id number] Univers 00:00:00 00:00:00 Only Unassigned, MIKHAIL [id number] ity of [place] [facility] 4.2.7.2.686 [place] as [id number] [facility] 009 [place] 2020-05-22 2020-05-22 Orders Doctor ALFRED [id number] 00:00:00 00:00:00 Only Unassigned, MIKHAIL [id number] [place] [facility] 4.2.7.2.686 [id number] [id number] 2020-02-15 2020-02-15 Outpatient G_Pappas [facility] [id number] [place] 12:05:00 12:05:00 [facility] 2019-08-02 2019-08-02 Outpatient R [facility] [id number] Univers 18:40:00 18:40:00 [id number] ity of [facility] 2019-08-02 2019-08-02 Outpatient R [facility] [id number] Univers 18:40:00 18:40:00 ity [facility] 2019-08-02 2019-08-02 Telephone Susan [facility] [id number] Univers 00:00:00 00:00:00 [facility] [id number] it y of [place] 4.2.7.2.686 [place] as Professio [id number] [address] 2019-08-02 2019-08-02 Telephone GWEN Davis [id number] 00:00:00 00:00:00 [facility] [id number] [place] 4.2.7.2.686 Professio [id number] nal 044 [facility] 2019-07-28 2019-07-28 Orders Doctor ALFRED 1.2.840.114 [id number] [facility] 00:00:00 00:00:00 Only Unassigned, MIKHAIL 350.1.13.10 ity of [place] [facility] 4.2.7.2.686 [place] as [id number] [facility] paulette 009 [place] 2019-07-28 2019-07-28 Orders Doctor SIMON 1.2.840.114 [id number] 00:00:00 00:00:00 Only Unassigned, MIKHAIL 350.1.13.10 [place] [facility] 4.2.7.2.686 [id number] [id number] 2019-02-18 2019-02-21 Inpatient SANDEEP HOSKINS [facility] [id number] [place] 00:00:00 00:00:[address] Results Test Description Test Time Test Comments Results Result Comments Source SURGICAL PATH SPECIMENS 2020-09-11 08:10:00 Test Item Value Reference Range Interpretation Comme nts SURGICAL RUN DATE: PATH 09/11/20 [place] - LAB PAGE 1 RUN TIME: 0810 SPECIMENS Specimen Inquiry RUN USER: INTERFACE (test code = SURG) PATIENT: LACI OQUENDO LOC: MOO U #: [id number] AGE/SX: 25/ F ROOM: RE09/06/20[facility] DR: Rosalva Norris MD : 95 BED: DIS: STATUS: DEP [facility] TLOC: SPEC #: [id number] RECD: STATUS: [facility] RE #: [id number] EDWINA: 09/07/[address] [facility] [address]: Rosalva Norris MD ENTERED: 09/10/20 SP TYPE: SURG SPEC OTHR DR: DOES_NOT KNOW No Primary or Family PhysicianORDERED: GROSS AND MICRO C ODES: [id number] - TONSIL, NOS COPIES TO: DOES_NOT KNOW No Primary [place] [id number] [address] PROCEDURES: GROSS AND MICRO (Incomplete) [...] CONTINUED ON NEXT PAGE RUN DATE: 09/11/20 [place] - LAB PAGE 2 RUN TIME: 809 Specimen Inquiry RUN USER: INTERFACE SPEC #: [id number] PATIENT: LACI OQUENDO #[id number] (Continued) POST-OP DIAGNOSIS Chronic tonsillitis and adenoiditis, chronic otitis media PRE-OP DIAGNOSIS Chronic tonsillitis and adenoiditis, isolation washer hannah otitis media Signed SIGNATURE ON Jorge Oakes MD 09/11/20 0810 END OF REPORT Novel Coronavirus 2018 [id number] 08:22:00 Test Item Value Reference Range Interpretation [...] for the identification of SARS-CoV-2 RNA usingthe Davies M2000 Sy stem under the FDA Emergen cy UseAuthorizatio n. The testing is perf ormed by personneltraine d in the procedures for the Proteus Agility M2000 molecular diagnostic SARS-CoV-2 assa y in vitro. PROTHROMBIN [id number] 14:33:00 Test Item Value Reference Range Interpretation [...] o prevent recurre nt infarct). THROMBOPLASTIN TIME [id number] 14:33:00 Test Item Value Reference Range Interpretation Comments THROMBOPLASTIN TIME 31.5 Seconds 25.0-39.5 N Ther apeutic PARTIAL (test code = Range: 50.4 - 88.3 PTT) Seconds Effective 08/24/2018 CBC W/AUTO [id number] 14:32:00 Test Item Value Reference Range Interpretation [...] REQUIRED (test code NO = MDIFF) PROTHROMBIN [id number] 14:31:00 Test Item Value Reference Range Interpretation [...] o prevent recurrent infar ct). THROMBOPLASTIN TIME [id number] 14:31:00 Test Item Value Reference Range Interpretation Comments THROMBOPLASTIN TIME PARTIAL (test Seconds 25.0-39.5 code = PTT) HCG SERUM [id number] 14:27:00 Test Item Value Reference Range Interpretation Comments HCG SERUM QUAL (test code = SERUM NEGATIVE NEGATIVE HCGQL) CT ABDOMEN PELVIS W [id number] 01:15:53 END OF REPORT Ordering Physician: DAO NICOLAS Clinical Indication: Abd pain, acute, generalized Additional Clinical Information: Comparison: CT scan of the abdomen and pelvis is obtained with IV contrast.CT Scan was performed using ALARA principles. ? Technique: Lung bases show no infiltrates or effusions. The heart size isnormal. The liver and spleen enhances uniformly. Gallbladder is absent. Adrenal glands and pancreas are normal. There is normal cortical enhancement kidneys without hydronephrosis. Unopacified small bowel: Normal in caliber. In the pelvis, there is fluid in the endometrial cavity. There is nodominant cyst. There is no free fluid. There is no evidence for appendicitis. Findings: No acute processes.2. No dominant ovar yecenia cyst or adnexal mass.3. No hydronephrosis.4. Absent gallbladder.5. No evidence of appendicitis. RL: [id number] [facility], Radiant Results Inft User - 05/22/2020 7:17 PM CSTOrdering Physician: DAO NICOLASClinical Indication: Abd pain, acute, generalized Additional Clinical Information:Comparison: CT scan of the abdomen and pelvis is obtained with IV contrast.CT Scan was performed using ALARA principles. Technique: Lung bases show no infiltrates or effusions. The heart size isnormal.The liver and spleen enhances uniformly. Gallbladder is absent.Adrenal glands and pancreas are normal.There is normal cortical enhancement kidneys without hydronephrosis.Unopacified small bowel: Normal in caliber.In thepelvis, there is fluid in the endometrial cavity. There is nodominant cyst. There is no free fluid.There is no evidence for appendicitis.Findings: No acute processes.2. No dominant ovarian cyst or adnexal mass.3. No hydronephrosis.4. Absent gallbladder.5. No evidence of appendicitis.RL: [id number] OF REPORT [facility]. METABOLIC PANEL ([id number])2020-05-23 00:26:00 Test Item Value Reference Range Interpretation Comments NA (test code = 139 mmol/L 135-145 7485061284) K (test code = 4.2 mmol/L 3.5-5 2315621606) CL (test code = 104 mmol/L 98-108 8968813588) CO2 TOTAL (test code = 26 mmol/L 23-31 0553791883) AGAP (test code = 2-16 9036485707) BUN (test code = 13 mg/dL 7-23 5056318228) GLUCOSE (test code = 101 mg/dL 70-110 2096052429) CREATININE (test code = 0.56 mg/dL 0.5-1.04 6286542270) TOTAL BILI (test code = 0.6 mg/dL 0.1-1.4 4111070224) CALCIUM (test code = 7.4 mg/dL 8.6-10.6 L 9819506170) T PROTEIN (test code = 8.8 g/dL 6.3-8.2 H 0242251557) ALBUMIN (test code = 4.2 g/dL 3.5-5 9922972202) ALK PHOS (test code = 66 U/L 34-122 2827896382) ALTv (test code = 26 U/L 5-35 1742-6) AST(SGOT) (test code = 34 U/L 13-40 8122819107) eGFR Calculation mL/min/1.73m2 (Non-) (test code = 3780384858) eGFR Calculation mL/min/1.73m2 () (test code = 1855827586) LUDY (test code = LUDY) Association of Glomerular Filtration Rate (GFR) and Staging of Kidney Disease* + --+ --+ ------+| GFR (mL/min/1.73 m2) ?| With Kidney Damage ?| ?Without Kidney Damage+ --------+ --------+ +| ?>90 ?| ?Stage one ?| ? Normal ?+ ---+ ---+ -------+| ?60-89 ?| ?Stage two ?| ? Decreased GFR ? + --+ --+ ------+| ?30-59 ?| ?Stage three ?| ? Stage three ? + --+ --+ ------+| ?15-29 ?| ?Stage four ? | ? Stage four ?+ ---+ ---+ -------+| ?<15 (or dialysis) ? ?| ?Stage five ? | ? Stage five ?+ ---+ ---+ -------+ *Each stage assumes the associated GFR level has been in effect for at least three months. ?Stages 1 to 5, with or without kidney disease, indicate chronic kidney disease. Notes: Determination of stages one and two (with eGFR >59mL/min/1.73 m2) requires estimation of kidney damage for at least three months as defined by structural or functional abnormalities of the kidney, manifested by either:Pathological abnormalities or Markers of kidney damage (including abnormalities in the composition of the blood or urine or abnormalities in imaging tests). Lab Interpretation Abnormal (test code = 98810-5) [facility] [id number] 00:26:00 Test Item Value Reference Range Interpretation Comments LIPASE (test code = 0231589420) 107 U/L 0-220 Lab Interpretation (test code = Normal 53502-3) [facility] 00:24:00 Test Item Value Reference Range Interpretation Comments APPEARANCE (test code = Hazy Clear A 7063773980) COLOR (test code = Yellow Yellow 5590971996) PH (test code = 4.8-8.0 1592199842) SP GRAVITY (test code = 1.003-1.030 3101278200) GLU U QUAL (test code = Normal Normal 5497875989) BLOOD (test code = Negative Negative 2812506105) KETONES (test code = Negative Negative 8794092104) PROTEIN (test code = Negative Negative 2887-8) UROBILIN (test code = Normal Normal 9271729451) BILIRUBIN (test code = Negative Negative [id number]) NITRITE (test code = Negative Negative [id number]) LEUK MARCIN (test code = Negative Negative 7632999737) RBC/HPF (test code = <1 See_Comment [Autom ated message] 2576867094) The system [employer] generated this result transmitted ref erence range: 0 - 3 HP F. The reference range was not used to int erpret this result as normal/abnormal . WBC/HPF (test code = See_Comment [Autom ated message] [id number]) The system [employer] generated this result transmitted ref erence range: 0 - 5 HP F. The reference range was not used to int erpret this result as normal/abnormal . BACTERIA (test code = Negative Negative 4323912730) MUCOUS (test code = Slight Negative LPF A 6662704053) SQ EPITH (test code = HPF 3521114610) Lab Interpretation (test Abnormal code = 70124-3) [facility] with [id number] 00:12:00 Test Item Value Reference Range Interpretation Comments WBC (test code = See_Comment [Automated message] 6690-2) The system [employer] generated this result transmitted ref erence range: 4.30 - 1 1.10 10*3/?L. The re ference range was not u sed to interpret this result as normal/abnor mal. RBC (test code = See_Comment [Automated message] 789-8) The system [employer] generated this result transmitted ref erence range: 3.93 - 5 .25 10*6/?L. The re ference range was not u sed to interpret this result as normal/abnor mal. HGB (test code = 14.0 g/dL 11.6-15 718-7) HCT (test code = 41.9 % 35.7-45.2 4544-3) MCV (test code = 86.0 fL 80.6-95.5 787-2) MCH (test code = 28.7 pg 25.9-32.8 785-6) MCHC (test code = 33.4 g/dL 31.6-35.1 786-4) RDW-SD (test code 40.4 fL 39-49.9 = 77161-3) RDW-CV (test code 13.0 % 12-15.5 = 788-0) PLT (test code = See_Comment [Automated message] 777-3) The system [employer] generated this result transmitted ref erence range: 166 - 35 8 10*3/?L. The re ference range was not u sed to interpret this result as normal/abnor mal. MPV (test code = 10.6 fL 9.5-12.9 72696-7) NRBC/100 WBC (test See_Comment [Automat ed message] code = 7520232538) The syste m which generated this result transmitted ref erence range: 0.0 - 10 .0 /100 WBCs. The refer ence range was not u sed to interpret this result as normal/abnor mal. NRBC x10^3 (test <0.01 See_Comment [Automated message] code = 8940430124) The syste m which generated this result transmitted ref erence range: 10*3/?L. The reference range was not used to interpr et this result as normal/abnormal . GRAN MAT (NEUT) % 57.7 % (test code = 770-8) IMM GRAN % (test 0.40 % code = 5704167125) LYMPH % (test code 32.1 % = 736-9) MONO % (test code 7.4 % = 5905-5) EOS % (test code = 2.1 % 713-8) BASO % (test code 0.3 % = 706-2) GRAN MAT 4.61 10*3/uL 1.88-7.09 x10^3(ANC) (test code = 0404405766) IMM GRAN x10^3 0.03 10*3/uL 0-0.06 (test code = 8782628942) LYMPH x10^3 (test 2.56 10*3/uL 1.32-3.29 code = 731-0) MONO x10^3 (test 0.59 10*3/uL 0.33-0.92 code = 742-7) EOS x10^3 (test 0.17 10*3/uL 0.03-0.39 code = 711-2) BASO x10^3 (test <0.03 0.01-0.07 code = 704-7) [id number] Test Item Value Reference Range Interpretation Comments POCT PREG (test code = 1605) negative On board controls acceptable with present C Line (test code = 3574) POCT PREG LOT # (test code = 3575) [id number] POCT PREG TEST DATE (test 01/08/2022 code = 3576) Lab Interpretation (test code = Normal 40914-2) [facility]
[2021-06-29 07:45] LABS: Urine Blood Negative (Negative); Urine Glucose Negative (Negative); Urine Protein Negative (Negative); Urine Specific Gravity >=1.030 (1.005-1.030); Urine pH 5.5 (5.0-7.0)
[2021-06-29 07:54] LABS: Urine Bacteria >50 /HPF (<20); Urine RBC <5 /HPF (NONE SEEN)
--- NOTE | 2021-06-29 08:08 | ER ---
Nurse's Notes [facility] Name: Letty Hall Age: 25 yrs Sex: Female : 1995 Arrival Date: 06/29/2021 Time: 07:17 Bed 13 Private MD: Diagnosis: Influenza due to other identified influenza virus with other respiratory manifestations;UTI/ Urinary tract infection, site not specified Presentation: 06/29 07:27 Chief complaint: Patient states: Sore throat, fever x 2 days, burning with urination x jl7 1 day. Coronavirus screen: fever, sore throat, Client presents with at least one sign or symptom that may indicate coronavirus-19. Standard/surgical mask placed on the client. Provider contacted for isolation considerations. Ebola Screen: No symptoms or risks identified at this time. Initial Sepsis Screen: Does the patient meet any 2 criteria? No. Patient's initial sepsis screen is negative. Does the patient have a suspected source of infection? No. Patient's initial sepsis screen is negative. Risk Assessment: Do you want to hurt yourself or someone else? Patient reports no desire to harm self or others. Onset of symptoms was June 26, 2021. 07:27 Method Of Arrival: Ambulatory [facility] 07:27 Acuity: BHAKTI 4 jl7 Triage Assessment: 07:28 General: Appears in no apparent distress. uncomfortable, Behavior is calm, cooperative, jl7 appropriate for age. Pain: Complains of pain in sore throat. EENT: Reports sore throat. 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 - Social history:: Smoking status: Patient reports the use of cigarette tobacco products. - Family history:: not pertinent. - Hospitalizations: : No recent hospitalization is reported. Screenin:30 Abuse screen: Denies threats or abuse. [facility] 07:30 Nutritional screening: No deficits noted. Tuberculosis screening: No symptoms or risk [facility] factors identified. Fall Risk None identified. Assessment: 07:34 General: Appears in no apparent distress. Behavior is calm, cooperative. Pain: 6 Complains of pain in uvula, left aspect of posterior pharynx and right aspect of posterior pharynx Pain currently is 5 out of 10 on a pain scale. 07:35 Respiratory: Airway is patent Respiratory effort is even, unlabored. EENT: Throat is 6 pink. 07:36 Respiratory: Breath sounds are clear bilaterally. 6 Vital Signs: 07:27 BP 134 / 85; Pulse 105; Resp 17; Temp 98.2; Pulse Ox 99% ; Weight 113.4 kg; Height 5 7 ft. 5 in. (165.10 cm); Pain 6/10; 08:08 BP 126 / 79; Pulse 94; Resp 18; Pulse Ox 100% ; jh6 07:27 Body Mass Index 41.60 (113.40 kg, 165.10 cm) 7 ED Course: 07:17 Patient arrived in ED. as 07:17 Chase Valera MD is Attending Physician. rn 07:26 Danielle Pantoja, NYA is Primary Nurse. 6 07:28 Triage completed. 7 07:28 Arm band placed on right wrist. 7 07:35 Call light in reach. Side rails up X 1. 6 07:35 No provider procedures requiring assistance completed. 6 08:10 Patient did not have IV access during this emergency room visit. 6 Administered Medications: No medications were administered Outcome: 08:07 Discharge ordered by . rn 08:10 Discharged to home ambulatory. 6 08:10 Condition: good 08:10 Discharge instructions given to patient, Instructed on discharge instructions, follow up and referral plans. Demonstrated understanding of instructions, follow-up care, medications, Prescriptions given X 1. 08:14 Patient left the ED. [facility] Signatures: Kennedi Wheatley as Chase Valera MD MD rn Leal, Jahala, RN RN 7 Danielle Pantoja, NYA RN [facility]
--- NOTE | 2021-06-29 08:08 | EDPHYS ---
Physician Documentation [facility] Name: Letty Hall Age: 25 yrs Sex: Female : 1995 Arrival Date: 06/29/2021 Time: 07:17 Bed 13 Private MD: ED Physician Chase Valera HPI: 06/29 07:45 This 25 yrs old Female presents to ER via Ambulatory with complaints of Flu Symptoms, rn Sore Throat. 07:45 The patient presents with sore throat. The patient describes throat pain as raw. Onset: rn The symptoms/episode began/occurred 2 day(s) ago. Severity of symptoms: At their worst the symptoms were mild, in the emergency department the symptoms are unchanged. Modifying factors: The symptoms are alleviated by nothing, the symptoms are aggravated by swallowing. Associated signs and symptoms: Pertinent positives: chills, cough, fever, flu-like symptoms, rhinorrhea. The patient has experienced similar episodes in the past. The patient has not recently seen a physician. 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 - Social history:: Smoking status: Patient reports the use of cigarette tobacco products. - Family history:: not pertinent. - Hospitalizations: : No recent hospitalization is reported. ROS: 07:45 Constitutional: Positive for fever and chills Eyes: Negative for injury, pain, redness, rn and discharge, ENT: Positive for nasal congestion and sore throat Neck: Negative for injury, pain, and swelling, Cardiovascular: Negative for chest pain, palpitations, and edema, Respiratory: Positive for cough, negative for shortness of breath Abdomen/GI: Negative for abdominal pain, nausea, vomiting, diarrhea, and constipation, Back: Negative for injury and pain, : Positive for dysuria MS/Extremity: Negative for injury and deformity, Skin: Negative for injury, rash, and discoloration, Neuro: Negative for headache, weakness, numbness, tingling, and seizure. Exam: 07:45 Constitutional: This is a well developed, well nourished patient who is awake, alert, rn and in no acute distress. Head/Face: Normocephalic, atraumatic. Eyes: Periorbital areas with no swelling, redness, or edema. ENT: Mild pharyngeal erythema without exudate, uvula midline Neck: Trachea midline, no masses palpated. Supple, full range of motion without nuchal rigidity, or vertebral point tenderness. No Meningismus. Positive nontender bilateral anterior cervical lymphadenopathy Cardiovascular: Regular rate and rhythm. No pulse deficits. Respiratory: No increased work of breathing, no retractions or nasal flaring. Abdomen/GI: Soft, non-tender Skin: Warm, dry with normal turgor. Normal color with no rashes, no lesions, and no evidence of cellulitis. MS/ Extremity: Pulses equal, no cyanosis. Neurovascular intact. Full, normal range of motion. Equal circumference. Neuro: Awake and alert, GCS 15 Vital Signs: 07:27 BP 134 / 85; Pulse 105; Resp 17; Temp 98.2; Pulse Ox 99% ; Weight 113.4 kg; Height 5 jl7 ft. 5 in. (165.10 cm); Pain 6/10; 08:08 BP 126 / 79; Pulse 94; Resp 18; Pulse Ox 100% ; jh6 07:27 Body Mass Index 41.60 (113.40 kg, 165.10 cm) jl7 MDM: 07:17 Patient medically screened. rn 08:06 Differential diagnosis: group A strep tonsillitis, influenza, pharyngitis, upper rn respiratory infection, viral syndrome UTI. Data reviewed: vital signs, nurses notes, lab test result(s), and as a result, I will discharge patient. Counseling: I had a detailed discussion with the patient and/or guardian regarding: the historical points, exam findings, and any diagnostic results supporting the discharge/admit diagnosis, lab results, the need for outpatient follow up, to return to the emergency department if symptoms worsen or persist or if there are any questions or concerns that arise at home. Special discussion: I discussed with the patient/guardian in detail that at this point there is no indication for admission to the hospital. It is understood, however, that if the symptoms persist or worsen the patient needs to return immediately for re-evaluation. 06/29 07:27 Order name: Flu; Complete Time: 08:06 rn 06/29 07:27 Order name: Strep; Complete Time: 08:06 rn 06/29 07:27 Order name: Urine Microscopic Only; Complete Time: 08:06 rn 06/29 07:44 Order name: Urine Dipstick-Ancillary; Complete Time: 08:06 EDMS 06/29 07:46 Order name: Urine --Ancillary (enter results) eb 06/29 07:55 Order name: Urine Culture EDMS 06/29 07:27 Order name: Urine Dipstick-Ancillary (obtain specimen); Complete Time: 08:04 rn 06/29 07:27 Order name: Urine Test (obtain specimen); Complete Time: 08:04 rn 06/29 08:00 Order name: Throat Culture EDDC Administered Medications: No medications were administered Disposition Summary: 06/29/21 08:07 Discharge Ordered Location: Home rn Problem: new rn Symptoms: have improved rn Condition: Stable rn Diagnosis - Influenza due to other identified influenza virus with other respiratory rn manifestations - UTI/ Urinary tract infection, site not specified rn Followup: rn - With: Private Physician - When: As needed - Reason: Recheck today's complaints, Re-evaluation by your physician Discharge Instructions: - Discharge Summary Sheet rn - Influenza, Adult rn - Urinary Tract Infection, Adult rn Forms: - Medication Reconciliation Form rn - Thank You Letter rn - 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
[2021-06-29 08:19] VITALS: TEMP 98.2
[2021-06-29 08:20] VITALS: BP 126/79; O2SAT 100
== END 2021-06-29 08:14 | disposition home or self-care (01) ==
LOC: ER 07:15
DX: J10.1 Influenza due to other identified influenza virus with other respiratory manifestations (principal); N39.0 Urinary tract infection, site not specified; Z72.0 Tobacco use; Z88.3 Allergy status to other anti-infective agents; Z88.5 Allergy status to narcotic agent; Z91.048 Other nonmedicinal substance allergy status
CPT/HCPCS: 81003; 81015; 81025; 87070; 87081; 87086; 87088; 87804; 99282

== ENCOUNTER 2021-08-25 20:20 | Emergency (ER) | payer SELFPAY ==
--- OUTSIDE RECORDS SUMMARY | 2021-08-25 20:25 | XMS REPORT | Continuity of Care Document ---
:1995 Author Organization [facility] t Address [address] [place] [address] Care Team Providers Name Role Phone Juanito Norris Attending Clinician Unavailable KELLY Attending Clinician Unavailable Hyacinth Brown Attending Clinician [phone] Eliza Hines Attending Clinician Doctor Unassigned, Name Attending Clinician Unavailable Dotty_Kenia Attending Clinician Unavailable Susan CARDOSO Attending Clinician AIDEE Attending Clinician Unavailable KELLY Admitting Clinician Unavailable Dotty_Kenia Admitting Clinician Unavailable DANNIELLE Admitting Clinician Unavailable Payers Payer Name Policy Type Policy Number Effective Date Expiration Date S jeremy [place] - [id number] [facility] 3 (O) [place] WOMEN'S [id number] HEALTH PROGRAM (MEDICAID) Problems Condition Condition Condition Status Onset Resolution Last Treating Co mments Source Name Details Category Date Date Treatment Clinician Date Mastoiditi Mastoiditi Disease Active U nivers s of both s of both 6-07 ity of sides sides 00:00: Medical Branch [...] Type Date Date Clinician haloperi DA Active OR [facility] dol 4-27 Clear 00:00: [place] 00 [facility] vancomyc DA Active OR [facility] in 4-27 Clear 00:00: [place] 00 [facility] haloperi DA Active OR MASTOIDITIS [facility] dol 4-27 Clear 00:00: [place] 00 [facility] vancomyc DA Active OR MASTOIDITIS [facility] in 4-27 Clear 00:00: [place] 00 [facility] Haloperi Propensi Active Anaphylaxis U nivers dol ty to 5- ity of Lactate adverse 00:00: [place] reaction Medical s Branch HALOPERI DRUG Active Anaphylaxis Uni vers DOL INGREDI 5 ity of LACTATE 00:00: Medical Branch Morphine Propensi Active Other - See Swelling , Univers ty to comments 12-05 pain ity of adverse 00:00: [place] reaction 00 Medical s Branch Vancomyc Propensi Active Unknown - "gives me Univers in ty to See comments 12-05 [place] ity of adverse 00:00: syndrome" [place] reaction 00 Medical s Branch MORPHINE DRUG Active Other-Cmnt Univ ers INGREDI 12-05 ity of 00:00: [place] 00 Medical Branch VANCOMYC DRUG Active Unknown-Cmnt Un leonarda IN INGREDI 12-05 ity of 00:00: [place] [address] Medical Branch Social History Social Habit Start Date Stop Date Quantity Comments Source Sex Assigned At Universit y of [facility] Exposure to Yes University of SARS-CoV-2 (event) [facility] History of tobacco Cigarette Smoker University of use [facility] Alcohol Comment occasional [facility] y [facility] Tobacco use and 2020-05-22 2020-05-22 Current user Univers ity of exposure 00:00:00 00:00:00 [facility] Cigarettes smoked 2020-05-22 2020-05-22 Univers ity of current (pack per 00:00:00 00:00:00 [place] ) - Reported Branch Alcohol intake 2020-05-22 2020-05-22 Current drinker Unive rsity of 00:00:00 00:00:[address] [facility] (finding) [place] Smoking Status Start Date Stop Date Source Current every day smoker 2020-05-22 00:00:00 Uni versity of [facility] Medications Ordered Filled Start Stop Current Ordering Indication Dosage Frequency Signature Comments Components Source Medication Medication Date Date Medication? Clinician (SIG) Name Name HYDROcodone 2020- No 1{tbl} 1 tablet, Univers -acetaminop 05-23 Oral, ity of hen (NORCO 02:30: 01:27 ONCE, 1 [place] 5) 5-325 mg 00 :00 dose, Tue Med ical tablet 1 05/22/20 at [facility] h tablet 2030, LAMIN iohexol 2020- No 120mL 120 mL, Unive rs (OMNIPAQUE 05-23 Intravenou it y of 350 01:00: 00:38 s, ONCE, 1 [place] BULK-100 00 :00 dose, Tue Medica l mL) 05/22/20 at [place] injection 1900, 120 mL Routine NaCl 0.9% 2020- No 1000mL at 999 Uni vers (NS) bolus 1-12 01-13 mL/hr, ity of infusion 23:30: 01:55 1,000 mL, [place] as 1,000 mL 00 :00 IV Medical Infusion, Branch ONCE, 1 dose, 05/22/20 at 1730, LAMIN dicyclomine Yes [id number] 10mg Take 1 Univers (BENTYL) 10 1-12 capsule by it y of mg capsule 00:00: mouth [place] (four) Medical times Branch daily as needed for Abdominal pain. ondansetron Yes [id number] 4mg Take 1 Univers 4 mg 1-12 tablet by ity of disintegrat 00:00: mouth [place] ing tablet 00 every 12 Medic al (twelve) Branch hours as needed for Nausea and Vomiting (N/V). acetaminoph 2020- No 4647 1{tbl} Take 1 U nivers en-codeine -12 01-20 tablet by ity of (TYLENOL-CO 00:00: 05:59 [place] DEINE #3) 00 :00 every 6 Medical 300-30 mg (six) Branch tablet hours as needed for Pain (scale 7-10) for up to 7 days. Indication s: acute pain [facility] 2017-05 Yes Take by Un leonarda ORAL 0-03 mouth. ity of 20:28: [address] 2017-05 Yes Take by Un leonarda ORAL 0-03 mouth. ity of 20:28: [address] 2017-05 Yes Take by Un leonarda ORAL 0-03 mouth. ity of 20:28: [address] 2017-05 Yes Take by Un leonarda ORAL 0-03 mouth. ity of 20:28: [address] CALCIUM 2017-05 Yes 2500mg Take 2,500 [...] mouth ity of 20 mg 00:59: daily. [place] [address] Medical Branch vortioxetin 2017-0 Yes Take by Un leonarda e 10 mg Tab 6-08 mouth ity of 00:59: daily. [place] [address] Medical Branch topiramate 2017-0 Yes 25mg Take 25 mg U nivers (TOPAMAX) 6-08 by mouth ity of 25 mg 00:59: daily. [place] [address] Medical Branch magnesium 2018-0 Yes 400mg Take 400 Uni vers oxide 400 6-08 mg by ity of mg tablet 00:59: mouth [place] 04 daily. Medical Branch cholecalcif 2017-0 Yes 1000U Take 1,000 Univers hira, 6-08 Units by ity of vitamin D3, 00:59: mouth [place] (VITAMIN 04 daily. Medical D3) 1,000 Branch unit tablet POTASSIUM 20180 Yes 75mg 75 mg Univers CHLORIDE 6-08 daily. ity of MISC 00:59: Indication [place] [address] s: OTC Medical Branch clonazePAM 2018-0 Yes [...] mouth ity of 20 mg 00:59: daily. [place] [address] Medical Branch vortioxetin 2017-0 Yes Take by Un leonarda e 10 mg Tab 6-08 mouth ity of 00:59: daily. [place] [address] Medical Branch topiramate 0 Yes 25mg Take 25 mg U nivers (TOPAMAX) 6-08 by mouth ity of 25 mg 00:59: daily. [place] tablet Medical Branch magnesium 0 Yes 400mg Take 400 Uni vers oxide 400 6-08 mg by ity of mg tablet 00:59: mouth [place] 04 daily. Medical Branch cholecalcif Yes 1000U Take 1,000 Univers hira, 6-08 Units by ity of vitamin D3, 00:59: mouth (VITAMIN 04 daily. Medical D3) 1,000 Branch unit tablet POTASSIUM 0 Yes 75mg 75 mg Univers CHLORIDE 6-08 daily. ity of MISC 00:59: Indication [place] [address] s: OTC Medical Branch clonazePAM Yes 1mg Take 1 mg Un leonarda [...] mouth ity of 20 mg 00:59: daily. [place] [address] Medical Branch vortioxetin Yes Take by Un leonarda e 10 mg Tab 6-08 mouth ity of 00:59: daily. [place] [address] Medical Branch topiramate 0 Yes 25mg Take 25 mg U nivers (TOPAMAX) 6-08 by mouth ity of 25 mg 00:59: daily. [place] tablet Medical Branch magnesium 2017-0 Yes 400mg [...] 6-08 daily. ity of MISC 00:59: Indication [place] [address] s: OT Medical Branch clonazePAM Yes 1mg Take 1 mg Un leonarda (KLONOPIN) 6-08 by mouth 3 ity of 1 mg tablet 00:59: (three) [place] 04 times Medical daily. Branch acetaZOLAMI Yes 300mg Take 300 U nivers DE 250 mg 6-08 mg by ity of tablet 00:59: mouth 2 [place] 04 (two) Medical times Branch daily. vilazodone Yes 20mg Take 20 mg U nivers (VIIBRYD) 6-08 by mouth ity of 20 mg 00:59: daily. [place] [address] Medical Branch vortioxetin Yes Take by Un leonarda e 10 mg Tab 6-08 mouth ity of 00:59: daily. [place] [address] Medical Branch topiramate Yes 25mg Take 25 mg U nivers (TOPAMAX) 6-08 by mouth ity of 25 mg 00:59: daily. [place] [address] Medical [place] magnesium Yes 400mg Take 400 Uni vers oxide 400 6-08 mg by ity of mg tablet 00:59: mouth [place] 04 daily. Medical Branch cholecalcif Yes 1000U Take 1,000 Univers hira, 6-08 Units by ity of vitamin D3, 00:59: mouth [place] (VITAMIN 04 daily. Medical D3) 1,000 Branch unit tablet POTASSIUM Yes 75mg 75 mg Univers CHLORIDE 6-08 daily. ity of MISC 00:59: Indication [place] [address] s: OT Medical Branch Vital Signs Vital Name Observation Time Observation Value Comments Source Systolic blood 2020-05-23 01:36:00 143 mm[Hg] Univer sity of pressure [facility] Diastolic blood 2020-05-23 01:36:00 99 mm[Hg] Unive rsity of pressure [facility] Heart rate 2020-05-23 01:36:00 94 /min [facility] of [facility] Respiratory rate 2020-05-23 01:36:00 18 /min [facility] Oxygen saturation in 2020-05-23 01:36:00 100 /min [facility] Arterial blood by [facility] Pulse oximetry Branch Body temperature 2020-05-23 01:15:52 37 [facility] Body height 2020-05-22 22:41:00 165.1 cm [facility] Body weight 2020-05-22 22:41:00 127.007 kg [facility] BMI 2020-05-22 22:41:00 46.59 kg/m2 [facility] Systolic blood 2020-05-23 01:36:00 143 mm[Hg] Univer sity of pressure [facility] Diastolic blood 2020-05-23 01:36:00 99 mm[Hg] [facility] Heart rate 2020-05-23 01:36:00 94 /min [facility] Respiratory rate 2020-05-23 01:36:00 18 /min [facility] Oxygen saturation in 2020-05-23 01:36:00 100 /min [facility] Arterial blood by [facility] Pulse oximetry [place] Body temperature 2020-05-23 01:15:52 37 [facility] Body height 2020-05-22 22:41:00 165.1 cm [facility] Body weight 2020-05-22 22:41:00 127.007 kg [facility] BMI 2020-05-22 22:41:00 46.59 kg/m2 [facility] Procedures Procedure Date / Time Performing Clinician Source Performed CT ABDOMEN PELVIS W 2020-05-23 00:46:11 Dao Nicolas [facility] POCT TEST 2020-05-23 00:09:00 Dao Nicolas [facility] LIPASE 2020-05-22 23:59:00 Dao Nicolas [facility] COMP. METABOLIC PANEL 2020-05-22 23:59:00 Dao Nicolas [facility] ([id number]) [facility] CBC WITH DIFF 2020-05-22 23:59:00 Dao Nicolas [facility] URINALYSIS 2020-05-22 23:59:00 Dao Nicolas [facility] CONSENT/REFUSAL FOR 2020-05-22 22:30:18 Doctor Unassigned, No [facility] Name Medical Branch AUTHORIZATION FOR 2019-07-28 05:01:00 Doctor Unassigned, No [facility] RELEASE OF PHI Name Medical Branch Encounters Start End Encounter Admission Attending Care Care Encounter Source Date/Time Date/Time Type Type Clinicians Facility Department ID 2021-03-09 Emergency [facility] [id number] Univers 16:53:19 ity of [facility] 2020-09-06 Inpatient HuRosalva [facility] DAYS [id number] [facility] 09:45:00 [id number] [facility] 2020-09-04 Inpatient Hu, Rosalva [facility] DAYS [id number] [facility] 09:30:00 [id number] [facility] 2021-02-28 2021-02-28 Outpatient [facility] 107 [place] 10:39:00 10:39:00 _L 1021 [facility] 2021-02-28 2021-02-28 Outpatient [facility] [id number] [id number] 00:00:00 00:00:00 , Nisa [id number] Hyacinth [id number] 2020-11-21 2020-11-21 Outpatient [facility] 107 [place] 01:00:00 01:00:00 _L 1020 [facility] 2020-11-21 2020-11-21 Outpatient [facility] 107 [place] 01:00:00 01:00:00 _L 0714 [facility] 2020-11-20 2020-11-20 Outpatient [facility] 107 [place] 06:10:00 06:10:00 _L 0713 [facility] 2020-11-20 2020-11-20 Outpatient [facility] [id number] 00:00:00 00:00:00 , Nisa [id number] Hyacinth [id number] 2020-05-22 2020-05-22 Emergency [facility] [id number] Univers 16:43:00 20:04:00 Dao B Bradly [id number] i ty of [place]2.[place] [id number] [facility] 084 [place] 2020-05-22 2020-05-22 Emergency [place], [facility] [id number] 16:43:00 20:04:00 Dao B Bradly [id number] [place] 4.2.7.2.686 [place] [phone] [facility] 2020-05-22 2020-05-22 Orders Doctor ALFRED [id number] Univers 00:00:00 00:00:00 Only Unassigned, MIKHAIL [id number] ity of [place] [facility] 4.2.7.2.686 [place] as [phone] [facility] 009 [place] 2020-05-22 2020-05-22 Orders Doctor ALFRED 1.2.840.114 [id number] 00:00:00 00:00:00 Only Unassigned, MIKHAIL [id number] [place] [facility] 4.2.7.2.686 [phone] 009 2020-02-15 2020-02-15 Outpatient G_Pappas [facility] [id number] [place] 12:05:00 12:05:00 1007 [facility] 2019-08-02 2019-08-02 Outpatient R [facility] [id number] Univers 18:40:00 18:40:00 [id number] ity of [facility] 2019-08-02 2019-08-02 Outpatient R [facility] [id number] Univers 18:40:00 18:40:00 ity of [facility] 2019-08-02 2019-08-02 [facility] [id number] Univers 00:00:00 00:00:00 Deanna [employer] [id number] it y of [place] 4.2.7.2.686 [place] as Professio [phone] [address] 2019-08-02 2019-08-02 Telephone GWEN Davis [id number] 00:00:00 00:00:00 Deanna [facility] [id number] [place] 4.2.7.2.686 Professio [phone] nal [address] 2019-07-28 2019-07-28 Orders Doctor SIMON 1.2.840.114 [id number] Univers 00:00:00 00:00:00 Only Unassigned, MIKHAIL [id number] ity of [place] [facility] 4.2.7.2.686 [place] as [id number] [facility] paulette 009 Branch 2019-07-28 2019-07-28 Orders Doctor SIMON 1.2.840.114 [id number] 00:00:00 00:00:00 Only Unassigned, MIKHAIL 350.1.13.10 [place] [facility] 4.2.7.2.686 [id number] 009 2019-02-18 2019-02-21 Inpatient SANDEEP HOSKINS [facility] [id number] [place] 00:00:00 00:00:[address] Results Test Description Test Time Test Comments Results Result Comments Source SURGICAL PATH SPECIMENS 2020-09-11 08:10:00 Test Item Value Reference Range Interpretation An riggisn SURGICAL RUN DATE: PATH 09/11/20 [facility] - LAB PAGE 1 RUN TIME: 0810 SPECIMENS Specimen Inquiry RUN USER: INTERFACE (test code = SURG) PATIENT: LACI OQUENDO LOC: MOO U #: [id number] AGE/SX: 25/ F ROOM: RE09/06/20[facility] DR: Rosalva Norris MD : 95 BED: DIS: STATUS: [place]P [facility] [place]LOC: SPEC #: [id number] RECD: [facility] RE #: [id number] EDWINA: 09/07/[address]: Rosalva Norris MD ENTERED: 09/10/20 SP TYPE: SURG SPEC OTHR DR: DOES_NOT KNOW No Primary or Family PhysicianORDERED: GROSS AND MICRO C ODES: [id number] - TONSIL, NOS COPIES TO: DOES_NOT KNOW No Primary [place] [id number] [address] PROCEDURES: GROSS AND MICRO (Incomplete) [...] CONTINUED ON NEXT PAGE RUN DATE: 09/11/20 [facility] - LAB PAGE 2 RUN TIME: 08 Specimen Inquiry RUN USER: INTERFACE SPEC #: [id number] PATIENT: LACI OQUENDO #[id number] (Continued) POST-OP DIAGNOSIS Chronic tonsillitis and adenoiditis, chronic otitis media PRE-OP DIAGNOSIS 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 The testing is perf ormed by personneltraine d in the procedures for the [employer] M2000 molecular diagnostic SARS-CoV-2 assa y in vitro. PROTHROMBIN [id number] 14:33:00 Test Item Value Reference Range Interpretation [...] o prevent recurre nt infarct). THROMBOPLASTIN TIME [id number] 14:33:00 Test Item Value Reference Range Interpretation Comments THROMBOPLASTIN TIME 31.5 Seconds 25.0-39.5 N Ther apeutic PARTIAL (test code = Range: 50.4 - 88.3 PTT) Seconds Effective 08/24/2018 CBC W/AUTO [id number] 14:32:00 Test Item Value Reference Range Interpretation [...] REQUIRED (test code NO = MDIFF) PROTHROMBIN [id number] 14:31:00 Test Item Value Reference Range Interpretation [...] o prevent recurrent infar ct). THROMBOPLASTIN TIME [id number] 14:31:00 Test Item Value Reference Range Interpretation Comments THROMBOPLASTIN TIME PARTIAL (test Seconds 25.0-39.5 code = PTT) HCG SERUM [id number] 14:27:00 Test Item Value Reference Range Interpretation Comments HCG SERUM QUAL (test code = SERUM NEGATIVE NEGATIVE HCGQL) CT ABDOMEN PELVIS W [id number] 01:15:53 END OF REPORT Ordering Physician: DAO [...] gallbladder.5. No evidence of appendicitis. RL: [id number] [facility], Radiant Results Inft User - 05/22/2020 7:17 [...] No evidence of appendicitis.RL: [id number] OF REPORT [facility]. METABOLIC PANEL (37539)2020-05-23 00:26:00 Test Item Value Reference Range Interpretation Comments NA (test code = 139 mmol/L 135-145 4877402533) K (test code = 4.2 mmol/L 3.5-5 3086402609) CL (test code = 104 mmol/L 98-108 2663377276) CO2 TOTAL (test code = 26 mmol/L 23-31 9878215258) AGAP (test code = 2-16 5197181970) BUN (test code = 13 mg/dL 7-23 0122183316) GLUCOSE (test code = 101 mg/dL 70-110 2134162716) CREATININE (test code = 0.56 mg/dL 0.5-1.04 0461214999) TOTAL BILI (test code = 0.6 mg/dL 0.1-1.4 5254208427) CALCIUM (test code = 7.4 mg/dL 8.6-10.6 L 4102189501) T PROTEIN (test code = 8.8 g/dL 6.3-8.2 H 6333403015) ALBUMIN (test code = 4.2 g/dL 3.5-5 3798435748) ALK PHOS (test code = 66 U/L 34-122 5593663179) ALTv (test code = 26 U/L 5-35 1742-6) AST(SGOT) (test code = 34 U/L 13-40 6832646834) eGFR Calculation mL/min/1.73m2 (Non-) (test code = 3955372049) eGFR Calculation mL/min/1.73m2 () (test code = 7645748214) LUDY (test code = LUDY) Association of [...] tests). Lab Interpretation Abnormal (test code = 10557-0) [id number] 00:26:00 Test Item Value Reference Range Interpretation Comments LIPASE (test code = 3480218011) 107 U/L 0-220 Lab Interpretation (test code = Normal 12823-9) [facility] Hospital[facility]inalysis2021-01-13 00:24:00 Test Item Value Reference Range Interpretation Comments APPEARANCE (test code = Hazy Clear A 0739239229) COLOR (test code = Yellow Yellow 0768942337) PH (test code = 4.8-8.0 6262138440) SP GRAVITY (test code = 1.003-1.030 5251377793) GLU U QUAL (test code = Normal Normal 0177506209) BLOOD (test code = Negative Negative 9006634725) KETONES (test code = Negative Negative 2607620663) PROTEIN (test code = Negative Negative 2887-8) UROBILIN (test code = Normal Normal 7146354912) BILIRUBIN (test code = Negative Negative 1664617348) NITRITE (test code = Negative Negative 9044021083) LEUK MARCIN (test code = Negative Negative 3031630441) RBC/HPF (test code = <1 See_Comment [Autom ated message] 2197008320) The system [employer] generated this result transmitted ref erence range: 0 - 3 HP F. The reference range was not used to int erpret this result as normal/abnormal . WBC/HPF (test code = See_Comment [Autom ated message] 5203465813) The system [employer] generated this result transmitted ref erence range: 0 - 5 HP F. The reference range was not used to int erpret this result as normal/abnormal . BACTERIA (test code = Negative Negative 6999458358) MUCOUS (test code = Slight Negative LPF A 3150153677) SQ EPITH (test code = HPF 5545231179) Lab Interpretation (test Abnormal code = 30397-4) [facility] with [id number] 00:12:00 Test Item Value Reference Range Interpretation Comments WBC (test code = See_Comment [Automated message] 6690-2) The system [employer] generated this result transmitted ref erence range: 4.30 - 1 1.10 10*3/?L. The re ference range was not u sed to interpret this result as normal/abnor mal. RBC (test code = See_Comment [Automated message] 689-8) The system [employer] generated this result transmitted ref erence range: [...] RDW-SD (test code 40.4 fL 39-49.9 = 59883-5) RDW-CV (test code 13.0 % 12-15.5 = 788-0) PLT (test code = See_Comment [Automated message] 777-3) The system [employer] generated this result transmitted ref erence range: 166 - 35 8 10*3/?L. The re ference range was not u sed to interpret this result as normal/abnor mal. MPV (test code = 10.6 fL 9.5-12.9 27665-6) NRBC/100 WBC (test See_Comment [Automat ed message] code = 9790732029) The syste m which generated this result transmitted ref erence range: 0.0 - 10 .0 /100 WBCs. The refer ence range was not u sed to interpret this result as normal/abnor mal. NRBC x10^3 (test <0.01 See_Comment [Automated message] code = 0404686066) The syste m which generated this result transmitted ref erence range: 10*3/?L. The reference range was not used to interpr et this result as normal/abnormal . GRAN MAT (NEUT) % 57.7 % (test code = 770-8) IMM GRAN % (test 0.40 % code = 9580178204) LYMPH % (test code 32.1 % = 736-9) MONO % (test code 7.4 % = 5905-5) EOS % (test code = 2.1 % 713-8) BASO % (test code 0.3 % = 706-2) GRAN MAT 4.61 10*3/uL 1.88-7.09 x10^3(ANC) (test code = 5560799227) IMM GRAN x10^3 0.03 10*3/uL 0-0.06 (test code = 4731737466) LYMPH x10^3 (test 2.56 10*3/uL 1.32-3.29 code = 731-0) MONO x10^3 (test 0.59 10*3/uL 0.33-0.92 code = 742-7) EOS x10^3 (test 0.17 10*3/uL 0.03-0.39 code = 711-2) BASO x10^3 (test <0.03 0.01-0.07 code = 704-7) [facility] [id number] 00:09:00 Test Item Value Reference Range Interpretation Comments POCT PREG (test code = 1605) negative On board controls acceptable with present C Line (test code = 3574) POCT PREG LOT # (test code = 3575) [id number] POCT PREG TEST DATE (test 01/08/2022 code = 3576) Lab Interpretation (test code = Normal 06614-5) [facility]
[2021-08-25 21:29] LABS: Urine Blood Negative (Negative); Urine Glucose Negative (Negative); Urine Protein Negative (Negative); Urine Specific Gravity >=1.030 (1.005-1.030)
--- NOTE | 2021-08-25 21:53 | EDPHYS ---
Physician Documentation [facility] Name: Letty Hall Age: 26 yrs Sex: Female : 1995 Arrival Date: 08/25/2021 Time: 20:24 Bed Waiting Private MD: ED Physician Chase Valera HPI: 08/25 21:21 This 26 yrs old Female presents to ER via Ambulatory with complaints of Arm Pain, Wound jmm Infection. 21:21 The patient or guardian complains of pain, that is acute, swelling. The complaints jmm affect the dorsal aspect of left forearm. Onset: The symptoms/episode began/occurred gradually, 3 day(s) ago. Modifying factors: The symptoms are alleviated by nothing. the symptoms are aggravated by nothing. This is a 26-year-old female with history of anxiety depression, hypothyroid thyroidism that presents emerged part with complaints of swelling to the left forearm secondary to a tattoo which she initially had done on August 16. States over the past 3 days she developed redness and swelling. Denies fever but states having some chills.. Historical: - Allergies: 21:20 Haldol; as6 21:20 Morphine (Upset stomach); as6 21:20 VANCOMYCIN AND DERIVATIVES; as6 - Home Meds: 21:20 calcium carbonate 500 mg calcium (1,250 mg) Oral tab 2500 mg four times a day [Active]; as6 magnesium oxide 400 mg Oral tab daily [Active]; Methocarbamol Oral [Active]; Potassium Chloride 75 mg Oral 1 tab daily as needed [Active]; Vitamin D3 Oral [Active]; - PMHx: 21:20 Anxiety; Depression; GERD; hypocalcemia; hypoparathyroidism; psuedo cranial as6 hypertension; Sinus Tachycardia; - PSHx: 21:20 Cholecystectomy; Tonsillectomy; as6 - Immunization history:: Client reports having NOT received the Covid vaccine. - Social history:: Smoking status: Patient reports the use of cigarette tobacco products, smokes one-half pack cigarettes per day. ROS: 21:21 Cardiovascular: Negative for chest pain, palpitations, and edema, Respiratory: Negative jmm for shortness of breath, cough, wheezing, and pleuritic chest pain. 21:21 Constitutional: Positive for body aches, chills. 21:21 Skin: Positive for erythema. 21:21 All other systems are negative. Exam: 21:21 Constitutional: This is a well developed, well nourished patient who is awake, alert, jmm and in no acute distress. Head/Face: atraumatic. Eyes: EOMI, no conjunctival erythema appreciated ENT: Moist Mucus Membranes Neck: Trachea midline, Supple Chest/axilla: Normal chest wall appearance and motion. Cardiovascular: Regular rate and rhythm. No edema appreciated Respiratory: Normal respirations, no respiratory distress appreciated Abdomen/GI: Non distended, soft Back: Normal ROM 21:21 Skin: Erythema and induration appreciated to the left forearm around a cupcake tattoo. No purulent drainage appreciated. The area is nonfluctuant. Patient is tender to palpation at that area.. 21:21 Neuro: Orientation: is normal, Mentation: is normal, Memory: is normal. 21:21 Psych: Behavior/mood is pleasant, cooperative. Vital Signs: 21:17 BP 133 / 82; Pulse 104; Resp 18; Temp 98.9(O); Pulse Ox 100% on R/A; Weight 117.93 kg as6 (R); Height 5 ft. 5 in. (165.10 cm) (R); Pain 7/10; 21:17 Body Mass Index 43.27 (117.93 kg, 165.10 cm) as6 MDM: 21:21 Patient medically screened. [facility] 21:51 Data reviewed: vital signs, nurses notes. Counseling: I had a detailed discussion with [facility] the patient and/or guardian regarding: the historical points, exam findings, and any diagnostic results supporting the discharge/admit diagnosis, lab results, the need for outpatient follow up, to return to the emergency department if symptoms worsen or persist or if there are any questions or concerns that arise at home. ED course: Patient is alert nontoxic in appearance in the ED. We will treat the patient with oral antibiotics. Patient otherwise given strict return precautions. I do not currently suspect sepsis.. 08/25 21:29 Order name: Urine Dipstick-Ancillary; Complete Time: 21:42 EDMS 08/25 21:22 Order name: Urine Test (obtain specimen); Complete Time: 21:29 [facility] Administered Medications: 08/26 00:00 Not Given (left before gettingg): Bactrim (trimethoprim-sulfamethoxazole) (160 mg-800 as6 mg (DS) 1 tablet PO once 00:00 Not Given (left before gettingg): Doxycycline 100 mg PO once as6 Disposition: 01:24 Co-signature as Attending Physician, Chase Valera MD. rn Disposition Summary: 08/25/21 21:52 Discharge Ordered Location: Home [facility] Condition: Stable [facility] Diagnosis - Cellulitis of the left upper extremity [facility] Followup: [facility] - With: Private Physician - When: 2 - 3 days - Reason: Recheck today's complaints, Continuance of care, Re-evaluation by your physician Discharge Instructions: - Discharge Summary Sheet [facility] Forms: - Medication Reconciliation Form [facility] - Thank You Letter [facility] - Antibiotic Education [facility] - Prescription Opioid Use [facility] Prescriptions: - Doxycycline Hyclate 100 mg Oral Tablet - take 1 tablet by ORAL route every 12 hours; 20 tablet; Refills: 0, Product [facility] Selection Permitted - Bactrim DS 800-160 mg Oral Tablet - take 1 tablet by ORAL route every 12 hours for 10 days; 20 tablet; Refills: 0, [facility] Product Selection Permitted Signatures: Darryl Gonzalez PA PA [facility] Chase Valera MD MD rn Juan C Coyle RN RN as6
--- NOTE | 2021-08-25 21:53 | ER ---
Nurse's Notes [facility] Name: Letty Hall Age: 26 yrs Sex: Female : 1995 Arrival Date: 08/25/2021 Time: 20:24 Bed Waiting [facility] MD: Diagnosis: Cellulitis of the left upper extremity Presentation: 08/25 21:17 Chief complaint: Patient states: pt got a recent tattoo to her left forearm. tattoo is as6 now painful, red, swollen. Coronavirus screen: At this time, the client does not indicate any symptoms associated with coronavirus-19. Ebola Screen: No symptoms or risks identified at this time. Initial Sepsis Screen: Does the patient meet any 2 criteria? HR > 90 bpm. Does the patient have a suspected source of infection? Yes: Skin breakdown/wound. Risk Assessment: Do you want to hurt yourself or someone else? Patient reports no desire to harm self or others. Onset of symptoms was August 22, 2021. 21:17 Method Of Arrival: Ambulatory as6 21:17 Acuity: BHAKTI 3 as6 Triage Assessment: 21:22 General: Appears in no apparent distress. Behavior is calm, cooperative. Pain: as6 Complains of pain in dorsal aspect of left forearm. Derm: Wound noted dorsal aspect of left forearm. Historical: - Allergies: 21:20 Haldol; as6 21:20 Morphine (Upset stomach); as6 21:20 VANCOMYCIN AND DERIVATIVES; as6 - Home Meds: 21:20 calcium carbonate 500 mg calcium (1,250 mg) Oral tab 2500 mg four times a day [Active]; as6 magnesium oxide 400 mg Oral tab daily [Active]; Methocarbamol Oral [Active]; Potassium Chloride 75 mg Oral 1 tab daily as needed [Active]; Vitamin D3 Oral [Active]; - PMHx: 21:20 Anxiety; Depression; GERD; hypocalcemia; hypoparathyroidism; psuedo cranial as6 hypertension; Sinus Tachycardia; - PSHx: 21:20 Cholecystectomy; Tonsillectomy; as6 - Immunization history:: Client reports having NOT received the Covid vaccine. - Social history:: Smoking status: Patient reports the use of cigarette tobacco products, smokes one-half pack cigarettes per day. Screenin/18 00:00 Abuse screen: Denies threats or abuse. Denies injuries from another. Nutritional as6 screening: No deficits noted. Tuberculosis screening: No symptoms or risk factors identified. Fall Risk None identified. Vital Signs: 08/25 21:17 BP 133 / 82; Pulse 104; Resp 18; Temp 98.9(O); Pulse Ox 100% on R/A; Weight 117.93 kg as6 (R); Height 5 ft. 5 in. (165.10 cm) (R); Pain 7/10; 21:17 Body Mass Index 43.27 (117.93 kg, 165.10 cm) as6 ED Course: 20:24 Patient arrived in ED. bp1 20:35 Darryl Gonzalez PA is PHCP. zackary 20:35 Chase Valera MD is Attending Physician. [facility] 21:20 Triage completed. as6 21:23 Arm band placed on. as6 08/26 00:01 No provider procedures requiring assistance completed. Patient did not have IV access as6 during this emergency room visit. Administered Medications: 00:00 Not Given (left before gettingg): Bactrim (trimethoprim-sulfamethoxazole) (160 mg-800 as6 mg (DS) 1 tablet PO once 00:00 Not Given (left before gettingg): Doxycycline 100 mg PO once as6 Outcome: 08/25 21:52 Discharge ordered by . rosangela 08/26 00:01 Discharged to home ambulatory, with significant other. as6 Condition: stable Discharge instructions given to patient, Instructed on discharge instructions, follow up and referral plans. medication usage, Demonstrated understanding of instructions, follow-up care, medications, Prescriptions given X 2. 00:01 Patient left the ED. as6 Signatures: Darryl Gonzalez PA PA jmm Paniauga, Brittany bp1 Slawson, Ashby, RN RN as6
[2021-08-26 02:05] VITALS: BP 133/82; TEMP 98.9; O2SAT 100
== END 2021-08-26 00:01 | disposition home or self-care (01) ==
LOC: ER 20:20
DX: L03.114 Cellulitis of left upper limb (principal); I10 Essential (primary) hypertension; F41.9 Anxiety disorder, unspecified; F32.A Depression, unspecified; F17.210 Nicotine dependence, cigarettes, uncomplicated
CPT/HCPCS: 81003; 99282

== ENCOUNTER 2021-08-29 20:04 | Emergency (ER) | payer SELFPAY ==
--- OUTSIDE RECORDS SUMMARY | 2021-08-29 20:07 | XMS REPORT | Continuity of Care Document ---
:1995 Author Organization [facility] t Address [address] [place] [address] Care Team Providers Name Role Phone Juanito Norris Attending Clinician Unavailable KELLY Attending Clinician Unavailable Hyacinth Brown Attending Clinician [phone] Eliza Hines Attending Clinician Doctor Unassigned, Name Attending Clinician Unavailable Dotty_Kenia Attending Clinician Unavailable Susan CARDOSO Attending Clinician AIDEE Attending Clinician Unavailable KELLY Admitting Clinician Unavailable Humberto Admitting Clinician Unavailable DANNIELLE Admitting Clinician Unavailable Payers Payer Name Policy Type Policy Number Effective Date Expiration Date S jeremy [place] - [id number] [facility] 3 (O) [place]OMEN'S [id number] HEALTH PROGRAM (MEDICAID) Problems Condition Condition Condition [...] Type Date Date Clinician haloperi DA Active [place] [facility] dol 4-27 Clear 00:00: Bowen 00 [facility] vancomyc DA Active [place] [facility] in 4-27 Clear 00:00: Bowen 00 [facility] haloperi DA Active RI [facility] dol 4-27 Clear 00:00: Bow[place] 00 [facility] vancomyc DA Active RI MASTOIDITIS [facility] in 4-27 Clear 00:00: [place] 00 [facility] Haloperi Propensi Active Anaphylaxis U nivers dol [...] leonarda IN INGREDI 12-05 ity of 00:00: [place] [address] Medical Branch Social History Social Habit Start Date Stop Date Quantity Comments Source Sex Assigned At Universit y [facility] Exposure to Yes University of SARS-CoV-2 (event) [facility] History of tobacco Cigarette Smoker University of use [facility] Alcohol Comment occasional [facility] y [facility] Tobacco use and 2020-05-22 2020-05-22 Current user Univers ity of exposure 00:00:00 00:00:00 [facility] Cigarettes smoked 2020-05-22 2020-05-22 Univers ity of current (pack per 00:00:00 00:00:00 [place] ) - Reported Branch Alcohol intake 2020-05-22 2020-05-22 Current drinker Unive rsity of 00:00:00 00:00:00 of alcohol [facility] (finding) [place] Smoking Status Start Date Stop Date Source Current every day smoker 2020-05-22 00:00:00 Uni versity of [facility] Medications Ordered Filled Start Stop Current Ordering Indication Dosage Frequency Signature Comments Components Source Medication Medication Date Date Medication? Clinician (SIG) Name Name HYDROcodone 2020- No 1{tbl} 1 tablet, Univers -acetaminop 05-23 Oral, ity of hen (NORCO 02:30: 01:27 ONCE, 1 [place] 5) 5-325 mg 00 :00 dose, Tue Med ical tablet 1 05/22/20 at [facility] h tablet 2030, LAMIN iohexol 2020- No 120mL 120 mL, Unive rs (OMNIPAQUE 05-23 Intravenou it y of 350 01:00: 00:38 s, ONCE, 1 [place] BULK-100 00 :00 dose, Tue Medica l mL) 05/22/20 at [place] injection 1900, 120 mL Routine NaCl 0.9% 2020- No 1000mL at 999 Uni vers (NS) bolus 1-12 01-13 mL/hr, ity of infusion 23:30: 01:55 1,000 mL, [place] as 1,000 mL 00 :00 IV Medical Infusion, Branch ONCE, 1 dose, 05/22/20 at 1730, LAMIN dicyclomine Yes [id number] 10mg Take 1 Univers (BENTYL) 10 1-12 capsule by it y of mg capsule 00:00: mouth [place] (four) Medical times Branch daily as needed for Abdominal pain. ondansetron Yes [id number] 4mg Take 1 Univers 4 mg 1-12 [...] to 7 days. Indication s: acute [facility] Yes Take by Un leonarda ORAL 0-03 mouth. ity of 20:28: [address] 2017-05 Yes Take by Un leonarda ORAL 0-03 mouth. ity of 20:28: [address] 2017-05 Yes Take by Un leonarda ORAL 0-03 mouth. ity of 20:28: [address] 2017-05 Yes Take by Un leonarda ORAL 0-03 mouth. ity of 20:28: [address] CALCIUM 2017-05 Yes 2500mg Take 2,500 [...] mouth ity of 20 mg 00:59: daily. [place] [address] Medical Branch vortioxetin 2017-0 Yes Take by Un leonarda e 10 mg Tab 6-08 mouth ity of 00:59: daily. [place] [address] Medical Branch topiramate 2017-0 Yes 25mg Take 25 mg U nivers (TOPAMAX) 6-08 by mouth ity of 25 mg 00:59: daily. [place] [address] Medical Branch magnesium 2018-0 Yes 400mg Take [...] 6-08 daily. ity of MISC 00:59: Indication [place] [address] s: OTC Medical Branch clonazePAM 2018-0 Yes [...] mouth ity of 20 mg 00:59: daily. [place] [address] Medical Branch vortioxetin 2017-0 Yes Take by Un leonarda e 10 mg Tab 6-08 mouth ity of 00:59: daily. [place] [address] Medical Branch topiramate 0 Yes 25mg Take [...] 6-08 daily. ity of MISC 00:59: Indication [place] [address] s: OTC Medical Branch clonazePAM Yes 1mg [...] mouth ity of 20 mg 00:59: daily. [place] [address] Medical Branch vortioxetin Yes Take by Un leonarda e 10 mg Tab 6-08 mouth ity of 00:59: daily. [place] [address] Medical Branch topiramate 0 Yes 25mg Take [...] 6-08 daily. ity of MISC 00:59: Indication [place] [address] s: OT Medical Branch clonazePAM Yes 1mg [...] mouth ity of 20 mg 00:59: daily. [place] [address] Medical Branch vortioxetin Yes Take by Un leonarda e 10 mg Tab 6-08 mouth ity of 00:59: daily. [place] [address] Medical Branch topiramate Yes 25mg Take 25 mg U nivers (TOPAMAX) 6-08 by mouth ity of 25 mg 00:59: daily. [place] [address] Medical [place] magnesium Yes 400mg Take 400 Uni vers oxide 400 6-08 mg by ity of mg tablet 00:59: mouth [place] 04 daily. Medical Branch cholecalcif Yes 1000U Take 1,000 Univers hira, 6-08 Units by ity of vitamin D3, 00:59: mouth [place] (VITAMIN 04 daily. Medical D3) 1,000 Branch unit tablet POTASSIUM Yes 75mg 75 mg Univers CHLORIDE 6-08 daily. ity of MISC 00:59: Indication [place] [address] s: OT Medical Branch Vital Signs Vital Name Observation Time Observation Value Comments Source Systolic blood 2020-05-23 01:36:00 143 mm[Hg] Univer sity of pressure [facility] Diastolic blood 2020-05-23 01:36:00 99 mm[Hg] Unive rsity of pressure [facility] Heart rate 2020-05-23 01:36:00 94 /min [facility] of [facility] Respiratory rate 2020-05-23 01:36:00 18 /min [facility] Oxygen saturation in 2020-05-23 01:36:00 100 /min [facility] Arterial blood by [facility] Pulse oximetry Branch Body temperature 2020-05-23 01:15:52 37 [facility] Body height 2020-05-22 22:41:[address] [facility] Body weight 2020-05-22 22:41:[address] [facility] BMI 2020-05-22 22:41:00 46.59 kg/m2 [facility] Systolic blood 2020-05-23 01:36:00 143 mm[Hg] Univer sity of pressure [facility] Diastolic blood 2020-05-23 01:36:00 99 mm[Hg] [facility] Heart rate 2020-05-23 01:36:00 94 /min [facility] Respiratory rate 2020-05-23 01:36:00 18 /min [facility] Oxygen saturation in 2020-05-23 01:36:00 100 /min [facility] Arterial blood by [facility] Pulse oximetry [place] Body temperature 2020-05-23 01:15:52 37 [facility] Body height 2020-05-22 22:41:[address] [facility] Body weight 2020-05-22 22:41:[address] [facility] BMI 2020-05-22 22:41:00 46.59 kg/m2 [facility] Procedures Procedure Date / Time Performing Clinician Source Performed CT ABDOMEN PELVIS W 2020-05-23 00:46:11 Dao Nicolas [facility] POCT TEST 2020-05-23 00:09:00 Dao Nicolas [facility] LIPASE 2020-05-22 23:59:00 Dao Nicolas [facility] COMP. METABOLIC PANEL 2020-05-22 23:59:00 Dao Nicolas [facility] ([id number]) [facility] CBC WITH DIFF 2020-05-22 23:59:00 Dao Nicolas [facility] URINALYSIS 2020-05-22 23:59:00 Dao Nicolas [facility] CONSENT/REFUSAL FOR 2020-05-22 22:30:18 Doctor Unassigned, No [facility] DIAGNOSIS AND TREATMENT Name Medical Branch AUTHORIZATION FOR 2019-07-28 05:01:00 Doctor Unassigned, No Univ ersFormerly [facility] RELEASE OF PHI Name Medical Branch Encounters Start End Encounter Admission Attending Care Care Encounter Source Date/Time Date/Time Type Type Clinicians Facility Department ID 2021-03-09 Emergency [facility] [id number] Univers 16:53:19 ity of [facility] 2020-09-06 Inpatient HuRosalva [facility]ACL DAYS [id number] [facility] 09:45:00 [id number] [facility] 2020-09-04 Inpatient Hu, Rosalva [facility] DAYS [id number] [facility] 09:30:00 [id number] [facility] 2021-02-28 2021-02-28 Outpatient [facility] [address] [place] 10:39:00 10:39:00 _L 1021 [facility] 2021-02-28 2021-02-28 Outpatient [facility] [id number] [id number] 00:00:00 00:00:00 , Nisa [id number] Hyacinth [id number] 2020-11-21 2020-11-21 Outpatient [facility] [address] [place] 01:00:00 01:00:00 _L 1020 [facility] 2020-11-21 2020-11-21 Outpatient [facility] [address] [place] 01:00:00 01:00:00 _L 0714 [facility] 2020-11-20 2020-11-20 Outpatient [facility] [address] [place] 06:10:00 06:10:00 _L 0713 [facility] 2020-11-20 2020-11-20 Outpatient [facility] 58a [id number] 00:00:00 00:00:00 , Nisa [id number] Hyacinth [id number] 2020-05-22 2020-05-22 Emergency [facility] [id number] Univers 16:43:00 20:04:00 Dao B Bradly 350.1.13.10 i ty [place] [phone] [facility] 084 [place] 2020-05-22 2020-05-22 Emergency [place], [facility] [id number] 16:43:00 20:04:00 Dao B Bradly [id number] [place] 4.2.7.2.686 [place] [phone] [facility] 2020-05-22 2020-05-22 Orders Doctor ALFRED 1.2.840.114 [id number] Univers 00:00:00 00:00:00 Only Unassigned, MIKHAIL 350.1.13.10 ity of [place] [facility] 4.2.7.2.686 [place] [phone] [facility] 009 [place] 2020-05-22 2020-05-22 Orders Doctor ALFRED 1.2.840.114 [id number] 00:00:00 00:00:00 Only Unassigned, MIKHAIL 350.1.13.10 [place] [facility] 4.2.7.2.686 [id number] [id number] 2020-02-15 2020-02-15 Outpatient G_Pappas [facility] [id number] [place] 12:05:00 12:05:00 1007 [facility] 2019-08-02 2019-08-02 Outpatient R [facility] [id number] Univers 18:40:00 18:40:00 [id number] ity of [facility] 2019-08-02 2019-08-02 Outpatient R [facility] [id number] Univers 18:40:00 18:40:00 ity of [facility] 2019-08-02 2019-08-02 [facility] [id number] Univers 00:00:00 00:00:00 [place] DIGITAL MEDIA 350.1.13.10 it y of [place] 4.2.7.2.686 [place] as Professio [phone] [address] 2019-08-02 2019-08-02 Telephone GWEN Davis [id number] 00:00:00 00:00:00 [facility] 350.1.13.10 [place] 4.2.7.2.686 Professio [phone] nal [address] 2019-07-28 2019-07-28 Orders Doctor SIMON 1.2.840.114 [id number] Univers 00:00:00 00:00:00 Only Unassigned, MIKHAIL 350.1.13.10 ity of [place] [facility] 4.2.7.2.686 [place] as [id number] [facility] 009 Branch 2019-07-28 2019-07-28 Orders Doctor SIMON 1.2.840.114 [id number] 00:00:00 00:00:00 Only Unassigned, MIKHAIL [facility].1.13.10 [facility] 4.2.7.2.686 [id number] [id number] 2019-02-18 2019-02-21 Inpatient [facility] [id number] Center [place] 00:00:00 00:00:[address] Results Test Description Test Time Test Comments Results Result Comments Source SURGICAL PATH SPECIMENS 2020-09-11 08:10:00 Test Item Value Reference Range Interpretation An riggins SURGICAL RUN DATE: PATH 09/11/20 [place] - LAB PAGE 1 RUN TIME: 0810 SPECIMENS Specimen Inquiry RUN USER: INTERFACE (test code = SURG) PATIENT: LACI OQUENDO LOC: MOO U #: [id number] AGE/SX: 25/ F ROOM: RE09/06/20[facility] DR: Rosalva Norris MD : 95 BED: DIS: STATUS: DEP [facility] TLOC: SPEC #: [id number] RECD: [facility] RE #: [id number] EDWINA: 09/07/[address]: Rosalva Norris MD ENTERED: 09/10/20 SP TYPE: SURG SPEC OTHR DR: DOES_NOT KNOW No Primary or Family PhysicianORDERED: GROSS AND MICRO C ODES: [id number] - TONSIL, NOS COPIES TO: DOES_NOT KNOW No Primary [place] [address] [address] PROCEDURES: GROSS AND MICRO (Incomplete) [...] CONTINUED ON NEXT PAGE RUN DATE: 09/11/20 [place] - LAB PAGE 2 RUN TIME: 08 Specimen Inquiry RUN USER: INTERFACE SPEC #: [id number] PATIENT: LACI OQUENDO #[id number] (Continued) POST-OP DIAGNOSIS Chronic tonsillitis and adenoiditis, chronic otitis media PRE-OP DIAGNOSIS Chronic tonsillitis and adenoiditis, 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 The testing is perf ormed by personneltraine d in the procedures for the [employer] M2000 molecular diagnostic SARS-CoV-2 assa y in vitro. PROTHROMBIN [id number] 14:33:00 Test Item Value Reference Range Interpretation [...] o prevent recurre nt infarct). THROMBOPLASTIN TIME [id number] 14:33:00 Test Item Value Reference Range Interpretation Comments THROMBOPLASTIN TIME 31.5 Seconds 25.0-39.5 N Ther apeutic PARTIAL (test code = Range: 50.4 - 88.3 PTT) Seconds Effective 08/24/2018 CBC W/AUTO [id number] 14:32:00 Test Item Value Reference Range Interpretation [...] REQUIRED (test code NO = MDIFF) PROTHROMBIN [id number] 14:31:00 Test Item Value Reference Range Interpretation [...] o prevent recurrent infar ct). THROMBOPLASTIN TIME [id number] 14:31:00 Test Item Value Reference Range Interpretation Comments THROMBOPLASTIN TIME PARTIAL (test Seconds 25.0-39.5 code = PTT) HCG SERUM [id number] 14:27:00 Test Item Value Reference Range Interpretation Comments HCG SERUM QUAL (test code = SERUM NEGATIVE NEGATIVE HCGQL) CT ABDOMEN PELVIS W [id number] 01:15:53 END OF REPORT Ordering Physician: DAO [...] gallbladder.5. No evidence of appendicitis. RL: 5611 [facility], Radiant Results Inft User - 05/22/2020 [...] [facility]. METABOLIC PANEL (61397)2020-05-23 00:26:00 Test Item Value Reference Range Interpretation Comments NA (test code = 139 mmol/L 135-145 8774296070) K (test code = 4.2 mmol/L 3.5-5 4783951999) CL (test code = 104 mmol/L 98-108 9589022656) CO2 TOTAL (test code = 26 mmol/L 23-31 9410663040) AGAP (test code = 2-16 6130475324) BUN (test code = 13 mg/dL 7-23 4136618518) GLUCOSE (test code = 101 mg/dL 70-110 8837641118) CREATININE (test code = 0.56 mg/dL 0.5-1.04 8641923208) TOTAL BILI (test code = 0.6 mg/dL 0.1-1.5 2686420938) CALCIUM (test code = 7.4 mg/dL 8.6-10.6 L 3811683095) T PROTEIN (test code = 8.8 g/dL 6.3-8.2 H 1780252495) ALBUMIN (test code = 4.2 g/dL 3.5-5 3846606288) ALK PHOS (test code = 66 U/L 34-122 7829567918) ALTv (test code = 26 U/L 5-35 1742-6) AST(SGOT) (test code = 34 U/L 13-40 6418787703) eGFR Calculation mL/min/1.73m2 (Non-) (test code = 7712300708) eGFR Calculation mL/min/1.73m2 () (test code = 6956999408) LUDY (test code = LUDY) Association of [...] tests). Lab Interpretation Abnormal (test code = 71357-2) [facility] [id number] 00:26:00 Test Item Value Reference Range Interpretation Comments LIPASE (test code = 7955602137) 107 U/L 0-220 Lab Interpretation (test code = Normal 33245-8) [place] [facility] Children[facility]inalysis2021-01-13 00:24:00 Test Item Value Reference Range Interpretation Comments APPEARANCE (test code = Hazy Clear A 5944058676) COLOR (test code = Yellow Yellow 5361390363) PH (test code = 4.8-8.0 6211358443) SP GRAVITY (test code = 1.003-1.030 3526480973) GLU U QUAL (test code = Normal Normal 9320891194) BLOOD (test code = Negative Negative 7584677065) KETONES (test code = Negative Negative 3781174540) PROTEIN (test code = Negative Negative 2887-8) UROBILIN (test code = Normal Normal 3694138024) BILIRUBIN (test code = Negative Negative 7552851900) NITRITE (test code = Negative Negative 0774882136) LEUK MARCIN (test code = Negative Negative 4537287074) RBC/HPF (test code = <1 See_Comment [Autom ated message] 0439011918) The system [employer] generated this result transmitted ref erence range: 0 - 3 HP F. The reference range was not used to int erpret this result as normal/abnormal . WBC/HPF (test code = See_Comment [Autom ated message] 8308397946) The system [employer] generated this result transmitted ref erence range: 0 - 5 HP F. The reference range was not used to int erpret this result as normal/abnormal . BACTERIA (test code = Negative Negative 1140167760) MUCOUS (test code = Slight Negative LPF A 8026753027) SQ EPITH (test code = HPF 5860242838) Lab Interpretation (test Abnormal code = 85707-6) [facility] with [id number] 00:12:00 Test Item Value Reference Range Interpretation Comments WBC (test code = See_Comment [Automated message] 6690-2) The system [employer] generated this result transmitted ref erence range: 4.30 - 1 1.10 10*3/?L. The re ference range was not u sed to interpret this result as normal/abnor mal. RBC (test code = See_Comment [Automated message] 699-8) The system [employer] generated this result transmitted ref erence range: [...] RDW-SD (test code 40.4 fL 39-49.9 = 09290-5) RDW-CV (test code 13.0 % 12-15.5 = 788-0) PLT (test code = See_Comment [Automated message] 777-3) The system [employer] generated this result transmitted ref erence range: 166 - 35 8 10*3/?L. The re ference range was not u sed to interpret this result as normal/abnor mal. MPV (test code = 10.6 fL 9.5-12.9 73669-7) NRBC/100 WBC (test See_Comment [Automat ed message] code = 9464188697) The syste m which generated this result transmitted ref erence range: 0.0 - 10 .0 /100 WBCs. The refer ence range was not u sed to interpret this result as normal/abnor mal. NRBC x10^3 (test <0.01 See_Comment [Automated message] code = 2386373555) The syste m which generated this result transmitted ref erence range: 10*3/?L. The reference range was not used to interpr et this result as normal/abnormal . GRAN MAT (NEUT) % 57.7 % (test code = 770-8) IMM GRAN % (test 0.40 % code = 3470799729) LYMPH % (test code 32.1 % = 736-9) MONO % (test code 7.4 % = 5905-5) EOS % (test code = 2.1 % 713-8) BASO % (test code 0.3 % = 706-2) GRAN MAT 4.61 10*3/uL 1.88-7.09 x10^3(ANC) (test code = 7224930680) IMM GRAN x10^3 0.03 10*3/uL 0-0.06 (test code = 0958868353) LYMPH x10^3 (test 2.56 10*3/uL 1.32-3.29 code = 731-0) MONO x10^3 (test 0.59 10*3/uL 0.33-0.92 code = 742-7) EOS x10^3 (test 0.17 10*3/uL 0.03-0.39 code = 711-2) BASO x10^3 (test <0.03 0.01-0.07 code = 704-7) [facility] [id number] 00:09:00 Test Item Value Reference Range Interpretation Comments POCT PREG (test code = 1605) negative On board controls acceptable with present C Line (test code = 3574) POCT PREG LOT # (test code = 3575) [id number] POCT PREG TEST DATE (test 01/08/2022 code = 3576) Lab Interpretation (test code = Normal 42305-0) [facility]
[2021-08-29] MEDS ORDERED: HYDROCODONE/APAP 10/325 TAB ONE (21:27)
--- NOTE | 2021-08-29 21:33 | RAD REPORT ---
EXAM DESCRIPTION: RAD - Humerus Left - 08/29/2021 9:21 pm CLINICAL HISTORY: Left arm pain status post fall FINDINGS: No fracture is seen
--- NOTE | 2021-08-29 21:34 | RAD REPORT ---
EXAM DESCRIPTION: RAD - Wrist Left 3 View - 08/29/2021 9:21 pm CLINICAL HISTORY: Left wrist pain status post injury FINDINGS: No fracture or dislocation is seen. If the patient continues to have symptoms to suggest an occult fracture then a followup plain film se roc in 7 days would be recommended
--- NOTE | 2021-08-29 21:34 | RAD REPORT ---
EXAM DESCRIPTION: RAD - Forearm Left - 08/29/2021 9:21 pm CLINICAL HISTORY: Left forearm pain status post injury FINDINGS: No fracture is seen
[2021-08-29] MEDS ORDERED: KETOROLAC 30 MG/ML INJ ONE (21:58)
--- NOTE | 2021-08-29 22:19 | ER ---
Nurse's Notes [facility] Name: Letty Hall Age: 26 yrs Sex: Female : 1995 Arrival Date: 08/29/2021 Time: 20:06 Bed 12 Private MD: Diagnosis: Contusion of left forearm;Contusion of left upper arm Presentation: 08/29 20:11 Chief complaint: Patient states: "this morning I tripped over my dogs and fell down the ab2 stairs." Pt states she went down 3 stairs. Pt denies hitting head, denies LOC. Pt c/o left arm pain. Bruising noted to left upper arm. Coronavirus screen: Vaccine status: Patient reports being unvaccinated. Client denies travel out of the [place] in the last 14 days. At this time, the client does not indicate any symptoms associated with coronavirus-19. Ebola Screen: Patient negative for fever greater than or equal to 101.5 degrees Fahrenheit, and additional compatible Ebola Virus Disease symptoms Patient denies exposure to infectious person. Patient denies travel to an Ebola-affected area in the 21 days before illness onset. No symptoms or risks identified at this time. Initial Sepsis Screen: Does the patient meet any 2 criteria? No. Patient's initial sepsis screen is negative. Does the patient have a suspected source of infection? No. Patient's initial sepsis screen is negative. Risk Assessment: Do you want to hurt yourself or someone else? Patient reports no desire to harm self or others. Onset of symptoms is unknown. 20:11 Method Of Arrival: Ambulatory ab2 20:11 Acuity: BHAKTI 4 ab2 Triage Assessment: 20:13 General: Appears in no apparent distress. uncomfortable, Behavior is calm, cooperative, ab2 appropriate for age. Pain: Complains of pain in left arm. Musculoskeletal: Reports pain in left arm. Injury Description: pt fell down 3 stairs. CYTOPATHOLOGIST: 22:26 LMP N/A - Irregular menses as6 Historical: - Allergies: 20:11 Haldol; ab2 20:11 VANCOMYCIN AND DERIVATIVES; ab2 - PMHx: 20:11 Sinus Tachycardia; psuedo cranial hypertension; hypoparathyroidism; hypocalcemia; GERD; ab2 Depression; Anxiety; - PSHx: 20:11 Cholecystectomy; Tonsillectomy; ab2 - Immunization history:: Adult Immunizations up to date. - Social history:: Smoking status: Patient reports the use of cigarette tobacco products, smokes one-half pack cigarettes per day. Screenin:59 Abuse screen: Denies threats or abuse. Denies injuries from another. Nutritional ab2 screening: No deficits noted. Tuberculosis screening: No symptoms or risk factors identified. Fall Risk None identified. Assessment: 22:27 Reassessment: Patient appears in no apparent distress at this time. as6 Vital Signs: 20:11 BP 140 / 65; Pulse 100; Resp 17; Temp 98.0; Pulse Ox 100% on R/A; Weight 117.93 kg; ab2 Height 5 ft. 5 in. (165.10 cm); Pain 8/10; 22:26 BP 112 / 61; Pulse 87; Resp 18 S; Pulse Ox 97% on R/A; as6 20:11 Body Mass Index 43.27 (117.93 kg, 165.10 cm) ab2 ED Course: 20:06 Patient arrived in ED. bp1 20:09 Darryl Gonzalez PA is PHCP. jmm 20:09 Chase Valera MD is Attending Physician. jmm 20:13 Triage completed. ab2 20:13 Arm band placed on right wrist. ab2 20:21 Navya Brunner, RN is Primary Nurse. ld1 20:59 Patient has correct armband on for positive identification. Bed in low position. Call ab2 light in reach. Side rails up X2. 20:59 No provider procedures requiring assistance completed. ab2 21:23 Humerus Left XRAY In Process Unspecified. EDMS 21:23 Forearm Left XRAY In Process Unspecified. EDMS 21:23 Wrist Left (3 View) XRAY In Process Unspecified. EDMS 22:26 Patient did not have IV access during this emergency room visit. as6 Administered Medications: 21:23 Drug: [place] (HYDROcodone-acetaminophen) 10 mg-325 mg 1 tabs Route: PO; ab2 21:56 Follow up: Response: No adverse reaction; RASS: Alert and Calm (0) as6 21:56 Drug: Ketorolac 30 mg Route: IM; Site: right ventrogluteal; as6 22:03 Follow up: Response: No adverse reaction as6 Outcome: 22:19 Discharge ordered by MD. jmm 22:26 Discharged to home ambulatory, with significant other. as6 22:26 Condition: stable 22:26 Discharge instructions given to patient, Instructed on discharge instructions, follow up and referral plans. medication usage, Demonstrated understanding of instructions, follow-up care, medications, Prescriptions given X 2. 22:27 Patient left the ED. as6 Signatures: Dispatcher [employer] EDMS Darryl Gonzalez PA PA jmm Paniauga, Brittany bp1 Dibbern, Lauren, RN RN ld1 Juan C Coyle RN RN as6 Issa Cook ab2 Corrections: (The following items were deleted from the chart) 20:11 20:11 Allergies: Morphine (Upset stomach); ab2 ab2
--- NOTE | 2021-08-29 22:19 | EDPHYS ---
Physician Documentation [facility] Name: Letty Hall Age: 26 yrs Sex: Female : 1995 Arrival Date: 08/29/2021 Time: 20:06 Bed 12 Private MD: ED Physician Chase Valera HPI: 08/29 20:18 This 26 yrs old Female presents to ER via Ambulatory with complaints of Fall Injury. jmm 20:18 Details of fall: The patient fell from an upright position. Onset: The symptoms/episode jmm began/occurred acutely, today. Associated injuries: The patient sustained left arm. This is a 26 year od female with a history of hypoparathyroidism that presents to the ED with complaints of forearm pain, left upper arm pain beginning after a fall which occurred this morning. Patient states she tripped over her dog. Denies other injury. Patient was prescribed oral abx this past Thursday and states swelling to her arm has not decreased. Denies fever or chills. . 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 - Social history:: Smoking status: Patient reports the use of cigarette tobacco products, smokes one-half pack cigarettes per day. ROS: 20:18 Constitutional: Negative for body aches, chills. jmm 20:18 MS/extremity: Positive for pain, swelling. 20:18 Skin: Positive for erythema. 20:18 All other systems are negative. Exam: 20:18 Constitutional: This is a well developed, well nourished patient who is awake, alert, jmm and in no acute distress. Head/Face: atraumatic. Eyes: EOMI, no conjunctival erythema appreciated ENT: Moist Mucus Membranes Neck: Trachea midline, Supple Chest/axilla: Normal chest wall appearance and motion. Cardiovascular: Regular rate and rhythm. 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 20:18 Skin: erythema and induration again noted surrounding the tattoo to the left forearm, no purulent drainage appreciated, compartments are soft. Ecchymosis noted to the left upper arm. 20:18 Neuro: Orientation: is normal, Mentation: is normal, Memory: is normal. 20:18 Psych: Behavior/mood is pleasant, cooperative. Vital Signs: 20:11 BP 140 / 65; Pulse 100; Resp 17; Temp 98.0; Pulse Ox 100% on R/A; Weight 117.93 kg; ab2 Height 5 ft. 5 in. (165.10 cm); Pain 8/10; 22:26 BP 112 / 61; Pulse 87; Resp 18 S; Pulse Ox 97% on R/A; as6 20:11 Body Mass Index 43.27 (117.93 kg, 165.10 cm) ab2 MDM: 20:18 Patient medically screened. [facility] 22:17 Data reviewed: vital signs, nurses notes. Counseling: I had a detailed discussion with rosangela the patient and/or guardian regarding: the historical points, exam findings, and any diagnostic results supporting the discharge/admit diagnosis, radiology results, the need for outpatient follow up, to return to the emergency department if symptoms worsen or persist or if there are any questions or concerns that arise at home. ED course: Xray negative. Patient advised to follow up with pcp and otherwise given strict return precautions. Patient understood and agrees with the plan of care. . 08/29 20:22 Order name: Humerus Left XRAY; Complete Time: 21:40 [facility] 08/29 20:22 Order name: Forearm Left XRAY; Complete Time: 21:40 [facility] 08/29 20:22 Order name: Wrist Left (3 View) XRAY; Complete Time: 21:40 [facility] Administered Medications: 21:23 Drug: [place] (HYDROcodone-acetaminophen) 10 mg-325 mg 1 tabs Route: PO; ab2 21:56 Follow up: Response: No adverse reaction; RASS: Alert and Calm (0) as6 21:56 Drug: Ketorolac 30 mg Route: IM; Site: right ventrogluteal; as6 22:03 Follow up: Response: No adverse reaction as6 Disposition: 08/30 01:13 Co-signature as Attending Physician, Chase Valera MD. rn Disposition Summary: 08/29/21 22:19 Discharge Ordered Location: Home [facility] Condition: Stable [facility] Diagnosis - Contusion of left forearm [facility] - Contusion of left upper arm [facility] Followup: [facility] - With: Private Physician - When: 2 - 3 days - Reason: Recheck today's complaints, Continuance of care, Re-evaluation by your physician Discharge Instructions: - Discharge Summary Sheet [facility] - Contusion [facility] Forms: - Medication Reconciliation Form [facility] - Thank You Letter [facility] - Antibiotic Education [facility] - Prescription Opioid Use [facility] Prescriptions: - Diclofenac Sodium 75 mg Oral Tablet Sustained Release - take 1 tablet by ORAL route 2 times per day; 30 tablet; Refills: 0, Product [facility] Selection Permitted - orphenadrine citrate 100 mg Oral Tablet Sustained Release - take 1 tablet by ORAL route 2 times per day As needed; 20 tablet; Refills: 0, [facility] Product Selection Permitted Signatures: Dispatcher [employer] EDDC Darryl Gonzalez PA PA [facility] Chase Valera MD MD rn Slawson, Ashby, RN RN as6 Issa Cook ab2 Corrections: (The following items were deleted from the chart) 08/29 20:11 20:11 Allergies: Morphine (Upset stomach); ab2 ab2
[2021-08-29 22:36] VITALS: TEMP 98
[2021-08-29 22:41] VITALS: BP 112/61; O2SAT 97
== END 2021-08-29 22:27 | disposition home or self-care (01) ==
LOC: ER 20:04
DX: S50.12XA Contusion of left forearm, initial encounter (principal); S40.022A Contusion of left upper arm, initial encounter; W01.0XXA Fall on same level from slipping, tripping and stumbling without subsequent striking against object, initial encounter; Y93.9 Activity, unspecified; Y92.019 Unspecified place in single-family (private) house as the place of occurrence of the external cause; Z88.3 Allergy status to other anti-infective agents; F41.8 Other specified anxiety disorders; K21.9 Gastro-esophageal reflux disease without esophagitis; I10 Essential (primary) hypertension; R00.0 Tachycardia, unspecified; E20.9 Hypoparathyroidism, unspecified
CPT/HCPCS: 96372; 99283

== ENCOUNTER 2021-10-01 19:29 | Inpatient (IN) | payer SELFPAY ==
--- OUTSIDE RECORDS SUMMARY | 2021-10-01 19:33 | XMS REPORT | Continuity of Care Document ---
:1995 Author Organization [facility] t Address [address] [place] [address] Care Team Providers Name Role Phone Juanito Norris Attending Clinician Unavailable KELLY Attending Clinician Unavailable Hyacinth Brown Attending Clinician [phone] Eliza Hines Attending Clinician Doctor Unassigned, Name Attending Clinician Unavailable Dotty_Kenia Attending Clinician Unavailable Susan CARDOSO Attending Clinician AIDEE Attending Clinician Unavailable KELLY Admitting Clinician Unavailable Dotty_Kenia Admitting Clinician Unavailable DANNIELLE Admitting Clinician Unavailable Payers Payer Name Policy Type Policy Number Effective Date Expiration Date S jeremy [place] - [id number] [facility] 3 (O) [place] WOMEN'S [id number] HEALTH PROGRAM (MEDICAID) Problems Condition Condition Condition [...] Type Date Date Clinician [place] Active [place] [facility] dol 4-27 Clear 00:00: [place] 00 [facility] [place]com[place] [facility] in 4-27 Clear 00:00: [place] 00 [facility] [place] [facility] [facility] dol 4-27 Clear 00:00: [place] 00 [facility] vancomyc [place] [facility] in 4-27 Clear 00:00: Bowen 00 [facility] Haloperi Propensi Active Anaphylaxis U nivers [...] leonarda IN INGREDI 12-05 ity of 00:00: [place] [address] Medical Branch Social History Social Habit Start Date Stop Date Quantity Comments Source Sex Assigned At [facility]it y of [facility] Exposure to Yes University of SARS-CoV-2 (event) [facility] History of tobacco Cigarette Smoker University of use [facility] Alcohol Comment occasional [facility] Tobacco use and 2020-05-22 2020-05-22 Current user Univers ity of exposure 00:00:00 00:00:00 [facility] Cigarettes smoked 2020-05-22 2020-05-22 Univers ity of current (pack per 00:00:00 00:00:00 [place] ) - Reported Branch Alcohol intake 2020-05-22 2020-05-22 Current drinker Unive rsity of 00:00:00 00:00:00 of alcohol [facility] (finding) [place] Smoking Status Start Date Stop Date Source Current every day smoker 2020-05-22 00:00:00 Uni versity of [facility] Medications Ordered Filled Start Stop Current Ordering Indication Dosage Frequency Signature Comments Components Source Medication Medication Date Date Medication? Clinician (SIG) Name Name HYDROcodone 2020- No 1{tbl} 1 tablet, Univers -acetaminop 05-23 Oral, ity of hen (NORCO 02:30: 01:27 ONCE, 1 [place] 5) 5-325 mg 00 :00 dose, Tue Med ical tablet 1 05/22/20 at [facility] h tablet 2030, LAMIN iohexol 2020- No 120mL 120 mL, Unive rs (OMNIPAQUE 05-23 Intravenou it y of 350 01:00: 00:38 s, ONCE, 1 [place] BULK-100 00 :00 dose, Tue Medica l mL) 05/22/20 at [place] injection 1900, 120 mL Routine NaCl 0.9% 2020- No 1000mL at 999 Uni vers (NS) bolus 1-12 01-13 mL/hr, ity of infusion 23:30: 01:55 1,000 mL, [place]ami[place] as 1,000 mL 00 :00 IV Medical Infusion, Branch ONCE, 1 dose, 05/22/20 at 1730, LAMIN dicyclomine Yes [id number] 10mg Take 1 Univers (BENTYL) 10 1-12 capsule by it y of mg capsule 00:00: mouth [place] (four) Medical times Branch daily as needed for Abdominal pain. ondansetron Yes [id number] 4mg Take 1 Univers 4 mg 1-12 [...] to 7 days. Indication s: acute [facility] Yes Take by Un leonarda ORAL 0-03 mouth. ity of 20:28: [address] 2017-05 Yes Take by Un leonarda ORAL 0-03 mouth. ity of 20:28: [address] 2017-05 Yes Take by Un leonarda ORAL 0-03 mouth. ity of 20:28: [address] 2017-05 Yes Take by Un leonarda ORAL 0-03 mouth. ity of 20:28: [address] CALCIUM 2017-05 Yes 2500mg Take 2,500 [...] mouth ity of 20 mg 00:59: daily. [place] [address] Medical Branch vortioxetin 2017-0 Yes Take by Un leonarda e 10 mg Tab 6-08 mouth ity of 00:59: daily. [place] [address] Medical Branch topiramate 2017-0 Yes 25mg Take 25 mg U nivers (TOPAMAX) 6-08 by mouth ity of 25 mg 00:59: daily. [place] [address] Medical Branch magnesium 2018-0 Yes 400mg Take [...] 6-08 daily. ity of MISC 00:59: Indication [place] [address] s: OTC Medical Branch clonazePAM 2018-0 Yes [...] mouth ity of 20 mg 00:59: daily. [place] [address] Medical Branch vortioxetin 2017-0 Yes Take by Un leonarda e 10 mg Tab 6-08 mouth ity of 00:59: daily. [place] [address] Medical Branch topiramate 0 Yes 25mg Take 25 mg U nivers (TOPAMAX) 6-08 by mouth ity of 25 mg 00:59: daily. [place] tablet Medical Branch magnesium 0 Yes 400mg [...] 6-08 daily. ity of MISC 00:59: Indication [place] [address] s: OTC Medical Branch clonazePAM Yes 1mg [...] mouth ity of 20 mg 00:59: daily. [place] [address] Medical Branch vortioxetin Yes Take by Un leonarda e 10 mg Tab 6-08 mouth ity of 00:59: daily. [place] [address] Medical Branch topiramate 0 Yes 25mg Take 25 mg U nivers (TOPAMAX) 6-08 by mouth ity of 25 mg 00:59: daily. [place] tablet Medical Branch magnesium 2017-0 Yes 400mg [...] 6-08 daily. ity of MISC 00:59: Indication [place] [address] s: OT Medical Branch clonazePAM Yes 1mg [...] mouth ity of 20 mg 00:59: daily. [place] [address] Medical Branch vortioxetin Yes Take by Un leonarda e 10 mg Tab 6-08 mouth ity of 00:59: daily. [place] [address] Medical Branch topiramate Yes 25mg Take 25 mg U nivers (TOPAMAX) 6-08 by mouth ity of 25 mg 00:59: daily. [place] [address] Medical [place] magnesium Yes 400mg Take 400 Uni vers oxide 400 6-08 mg by ity of mg tablet 00:59: mouth [place] 04 daily. Medical Branch cholecalcif Yes 1000U Take 1,000 Univers hira, 6-08 Units by ity of vitamin D3, 00:59: mouth [place] (VITAMIN 04 daily. Medical D3) 1,000 Branch unit tablet POTASSIUM Yes 75mg 75 mg Univers CHLORIDE 6-08 daily. ity of MISC 00:59: Indication [place] [address] s: OT Medical Branch Vital Signs Vital Name Observation Time Observation Value Comments Source Systolic blood 2020-05-23 01:36:00 143 mm[Hg] Univer sity of pressure [facility] Diastolic blood 2020-05-23 01:36:00 99 mm[Hg] Unive rsity of pressure [facility] Heart rate 2020-05-23 01:36:00 94 /min [facility] of [facility] Respiratory rate 2020-05-23 01:36:00 18 /min [facility] Oxygen saturation in 2020-05-23 01:36:00 100 /min [facility] Arterial blood by [facility] Pulse oximetry Branch Body temperature 2020-05-23 01:15:52 37 [facility] Body height 2020-05-22 22:41:00 165.1 cm [facility] Body weight 2020-05-22 22:41:00 127.007 kg [facility] BMI 2020-05-22 22:41:00 46.59 kg/m2 [facility] Systolic blood 2020-05-23 01:36:00 143 mm[Hg] Univer sity of pressure [facility] Diastolic blood 2020-05-23 01:36:00 99 mm[Hg] [facility] Heart rate 2020-05-23 01:36:00 94 /min [facility] Respiratory rate 2020-05-23 01:36:00 18 /min [facility] Oxygen saturation in 2020-05-23 01:36:00 100 /min [facility] Arterial blood by [facility] Pulse oximetry [place] Body temperature 2020-05-23 01:15:52 37 [facility] Body height 2020-05-22 22:41:00 165.1 cm [facility] Body weight 2020-05-22 22:41:00 127.007 kg [facility] BMI 2020-05-22 22:41:00 46.59 kg/m2 [facility] Procedures Procedure Date / Time Performing Clinician Source Performed CT ABDOMEN PELVIS W 2020-05-23 00:46:11 Dao Nicolas [facility] POCT TEST 2020-05-23 00:09:00 Dao Nicolas [facility] LIPASE 2020-05-22 23:59:00 Dao Nicolas [facility] COMP. METABOLIC PANEL 2020-05-22 23:59:00 Dao Nicolas [facility] ([id number]) [facility] CBC WITH DIFF 2020-05-22 23:59:00 Dao Nicolas [facility] URINALYSIS 2020-05-22 23:59:00 Dao Nicolas [facility] CONSENT/REFUSAL FOR 2020-05-22 22:30:18 Doctor [facility]igned, [facility] Name Medical Branch AUTHORIZATION FOR 2019-07-28 05:01:00 Doctor Unassigned, No [facility] RE[facility] OF [facility]I Name Medical Branch Encounters Start End Encounter Admission Attending Care Care Encounter Source Date/Time Date/Time Type Type Clinicians Facility Department ID 2021-03-09 Emergency [facility] [id number] Univers 16:53:19 ity of [facility] 2020-09-06 Inpatient HuRosalva [facility] DAYS [id number] [facility] 09:45:00 [id number] [facility] 2020-09-04 Inpatient Hu, Rosalva [facility] DAYS [id number] [facility] 09:30:00 [id number] [facility] 2021-02-28 2021-02-28 Outpatient [facility] [address] [place] 10:39:00 10:39:00 _L 1021 [facility] 2021-02-28 2021-02-28 Outpatient [facility] [id number] [id number] 00:00:00 00:00:00 , Nisa [id number] Hyacinth [id number] 2020-11-21 2020-11-21 Outpatient [facility] [address] [place] 01:00:00 01:00:00 _L 1020 [facility] 2020-11-21 2020-11-21 Outpatient [facility] 107 [place] 01:00:00 01:00:00 _L 0714 [facility] 2020-11-20 2020-11-20 Outpatient [facility] 107 [place] 06:10:00 06:10:00 _L 0713 [facility] 2020-11-20 2020-11-20 Outpatient [facility] [id number] 00:00:00 00:00:00 , Nisa [id number] Hyacinth [id number] 2020-05-22 2020-05-22 Emergency [facility] [id number] Univers 16:43:00 20:04:00 Dao B Bradly 350.1.13.10 i [place] [id number] [facility] 084 [place] 2020-05-22 2020-05-22 Emergency Sivan, [facility] [id number] 16:43:00 20:04:00 Dao B Bradly 350.1.13.10 [place] 4.2.7.2.686 [place] [id number] [facility] 2020-05-22 2020-05-22 Orders Doctor ALFRED 1.2.840.114 [id number] Univers 00:00:00 00:00:00 Only Unassigned, MIKHAIL 350.1.13.10 ity of [place] [facility] 4.2.7.2.[id number] [facility] 009 [place] 2020-05-22 2020-05-22 Orders Doctor ALFRED 1.2.840.114 [id number] 00:00:00 00:00:00 Only Unassigned, MIKHAIL 350.1.13.10 [place] [facility] 4.2.7.2.686 [id number] 2020-02-15 2020-02-15 Outpatient G_Pappas [facility] [id number] [place] 12:05:00 12:05:00 1007 [facility] 2019-08-02 2019-08-02 Outpatient R [facility] [id number] Univers 18:40:00 18:40:00 [id number] ity of [facility] 2019-08-02 2019-08-02 Outpatient R [facility] [id number] Univers 18:40:00 18:40:00 ity of [facility] 2019-08-02 2019-08-02 [facility] [id number] Univers 00:00:00 00:00:00 Deanna [employer] 350.1.13.10 it y of [place] 4.2.7.2.686 [place] as Professio [phone] [address] 2019-08-02 2019-08-02 Telephone GWEN Davis [id number] 00:00:00 00:00:00 Deanna [facility] 350.1.13.10 [place] 4.2.7.2.686 Professio [phone] nal [address] 2019-07-28 2019-07-28 Orders Doctor SIMON 1.2.840.114 [id number] Univers 00:00:00 00:00:00 Only Unassigned, MIKHAIL 350.1.13.10 ity of [place] [facility] 4.2.7.2.686 [place]ami[place] as [phone] [facility] paulette 009 Branch 2019-07-28 2019-07-28 Orders Doctor SIMON 1.2.840.114 [id number] 00:00:00 00:00:00 Only Unassigned, MIKHAIL [facility]13.10 [facility] 4.2.7.2.686 [id number] 2019-02-18 2019-02-21 Inpatient [facility] [id number] [place] 00:00:00 00:00:[address] Results Test Description Test Time Test Comments Results Result Comments Source SURGICAL PATH SPECIMENS 2020-09-11 08:10:00 Test Item Value Reference Range Interpretation An rgigins SURGICAL RUN DATE: PATH 09/11/20 [facility] - LAB PAGE 1 RUN TIME: 0810 SPECIMENS Specimen Inquiry RUN USER: INTERFACE (test code = SURG) PATIENT: LACI OQUENDO LOC: MOO U #: [id number] AGE/SX: 25/ F ROOM: RE09/06/20[facility] DR: Rosalva Norris MD : 95 BED: DIS: STATUS: DEP [facility] TLOC: SPEC #: [id number] RECD: [facility] RE #: [id number] EDWINA: 09/07/[address]: Rosalva Norris MD ENTERED: 09/10/20 SP TYPE: SURG SPEC OTHR DR: DOES_NOT KNOW No Primary or Family PhysicianORDERED: GROSS AND MICRO C ODES: [id number] - TONSIL, NOS COPIES TO: DOES_NOT KNOW No Primary [place] [address] [address] PROCEDURES: GROSS AND MICRO (Incomplete) [...] CONTINUED ON NEXT PAGE RUN DATE: 09/11/20 [facility] - LAB PAGE 2 RUN TIME: 08 Specimen Inquiry RUN USER: INTERFACE SPEC #: [id number] PATIENT: LACI OQUENDO #[id number] (Continued) POST-OP DIAGNOSIS Chronic tonsillitis and adenoiditis, chronic otitis media PRE-OP DIAGNOSIS Chronic tonsillitis and adenoiditis, automatic fabric 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 The testing is perf ormed by personneltraine d in the procedures for the Aldera M2000 molecular diagnostic SARS-CoV-2 assa y in vitro. PROTHROMBIN [id number] 14:33:00 Test Item Value Reference Range Interpretation [...] o prevent recurre nt infarct). THROMBOPLASTIN TIME [id number] 14:33:00 Test Item Value Reference Range Interpretation Comments THROMBOPLASTIN TIME 31.5 Seconds 25.0-39.5 N Ther apeutic PARTIAL (test code = Range: 50.4 - 88.3 PTT) Seconds Effective 08/24/2018 CBC W/AUTO [id number] 14:32:00 Test Item Value Reference Range Interpretation [...] REQUIRED (test code NO = MDIFF) PROTHROMBIN [id number] 14:31:00 Test Item Value Reference Range Interpretation [...] o prevent recurrent infar ct). THROMBOPLASTIN TIME [id number] 14:31:00 Test Item Value Reference Range Interpretation Comments THROMBOPLASTIN TIME PARTIAL (test Seconds 25.0-39.5 code = PTT) HCG SERUM [id number] 14:27:00 Test Item Value Reference Range Interpretation Comments HCG SERUM QUAL (test code = SERUM NEGATIVE NEGATIVE HCGQL) CT ABDOMEN PELVIS W [id number] 01:15:53 END OF REPORT Ordering Physician: DAO [...] gallbladder.5. No evidence of appendicitis. RL: 5611 [facility], Radiant Results Inft User - 05/22/2020 [...] No evidence of appendicitis.RL: 5611IMPRESSIONEND OF REPORT [facility]. METABOLIC PANEL (46457)2020-05-23 00:26:00 Test Item Value Reference Range Interpretation Comments NA (test code = 139 mmol/L 135-145 6052629743) K (test code = 4.2 mmol/L 3.5-5 7176216499) CL (test code = 104 mmol/L 98-108 6728853764) CO2 TOTAL (test code = 26 mmol/L 23-31 1562750088) AGAP (test code = 2-16 8922809774) BUN (test code = 13 mg/dL 7-23 5620788491) GLUCOSE (test code = 101 mg/dL 70-110 4562746354) CREATININE (test code = 0.56 mg/dL 0.5-1.04 0056001178) TOTAL BILI (test code = 0.6 mg/dL 0.1-1.3 5606616838) CALCIUM (test code = 7.4 mg/dL 8.6-10.6 L 0873621609) T PROTEIN (test code = 8.8 g/dL 6.3-8.2 H 3984395924) ALBUMIN (test code = 4.2 g/dL 3.5-5 3987052472) ALK PHOS (test code = 66 U/L 34-122 7680625851) ALTv (test code = 26 U/L 5-35 1742-6) AST(SGOT) (test code = 34 U/L 13-40 5508094011) eGFR Calculation mL/min/1.73m2 (Non-) (test code = 1794724268) eGFR Calculation mL/min/1.73m2 () (test code = 7025036153) LUDY (test code = LUDY) Association of [...] tests). Lab Interpretation Abnormal (test code = 67361-8) [facility] [id number] 00:26:00 Test Item Value Reference Range Interpretation Comments LIPASE (test code = 3187018520) 107 U/L 0-220 Lab Interpretation (test code = Normal 83948-0) [place] [facility]2021-[facility]-13 00:24:00 Test Item Value Reference Range Interpretation Comments APPEARANCE (test code = Hazy Clear A 1262433972) COLOR (test code = Yellow Yellow 5801388445) PH (test code = 4.8-8.0 5875424954) SP GRAVITY (test code = 1.003-1.030 2704005565) GLU U QUAL (test code = Normal Normal 4414907534) BLOOD (test code = Negative Negative 2735396698) KETONES (test code = Negative Negative 4367546594) PROTEIN (test code = Negative Negative 2887-8) UROBILIN (test code = Normal Normal 5852608718) BILIRUBIN (test code = Negative Negative 6406942478) NITRITE (test code = Negative Negative 3832793284) LEUK MARCIN (test code = Negative Negative 4957871127) RBC/HPF (test code = <1 See_Comment [Autom ated message] 0743015336) The system [employer] generated this result transmitted ref erence range: 0 - 3 HP F. The reference range was not used to int erpret this result as normal/abnormal . WBC/HPF (test code = See_Comment [Autom ated message] 3698678165) The system [employer] generated this result transmitted ref erence range: 0 - 5 HP F. The reference range was not used to int erpret this result as normal/abnormal . BACTERIA (test code = Negative Negative 1818508179) MUCOUS (test code = Slight Negative LPF A 8301496902) SQ EPITH (test code = HPF 5566980480) Lab Interpretation (test Abnormal code = 20492-9) [facility] with [id number] 00:12:00 Test Item Value Reference Range Interpretation Comments WBC (test code = See_Comment [Automated message] 6690-2) The system [employer] generated this result transmitted ref erence range: 4.30 - 1 1.10 10*3/?L. The re ference range was not u sed to interpret this result as normal/abnor mal. RBC (test code = See_Comment [Automated message] 199-8) The system [employer] generated this result transmitted ref erence range: [...] RDW-SD (test code 40.4 fL 39-49.9 = 45281-8) RDW-CV (test code 13.0 % 12-15.5 = 788-0) PLT (test code = See_Comment [Automated message] 777-3) The system [employer] generated this result transmitted ref erence range: 166 - 35 8 10*3/?L. The re ference range was not u sed to interpret this result as normal/abnor mal. MPV (test code = 10.6 fL 9.5-12.9 79976-2) NRBC/100 WBC (test See_Comment [Automat ed message] code = 8033119977) The syste m which generated this result transmitted ref erence range: 0.0 - 10 .0 /100 WBCs. The refer ence range was not u sed to interpret this result as normal/abnor mal. NRBC x10^3 (test <0.01 See_Comment [Automated message] code = 8316409361) The syste m which generated this result transmitted ref erence range: 10*3/?L. The reference range was not used to interpr et this result as normal/abnormal . GRAN MAT (NEUT) % 57.7 % (test code = 770-8) IMM GRAN % (test 0.40 % code = 9926482291) LYMPH % (test code 32.1 % = 736-9) MONO % (test code 7.4 % = 5905-5) EOS % (test code = 2.1 % 713-8) BASO % (test code 0.3 % = 706-2) GRAN MAT 4.61 10*3/uL 1.88-7.09 x10^3(ANC) (test code = 9287960719) IMM GRAN x10^3 0.03 10*3/uL 0-0.06 (test code = 4663579029) LYMPH x10^3 (test 2.56 10*3/uL 1.32-3.29 code = 731-0) MONO x10^3 (test 0.59 10*3/uL 0.33-0.92 code = 742-7) EOS x10^3 (test 0.17 10*3/uL 0.03-0.39 code = 711-2) BASO x10^3 (test <0.03 0.01-0.07 code = 704-7) [facility] [id number] 00:09:00 Test Item Value Reference Range Interpretation Comments POCT PREG (test code = 1605) negative On board controls acceptable with present C Line (test code = 3574) POCT PREG LOT # (test code = 3575) [id number] POCT PREG TEST DATE (test 01/08/2022 code = 3576) Lab Interpretation (test code = Normal 01130-5) [facility]
--- NOTE | 2021-10-01 20:52 | RAD REPORT ---
EXAM DESCRIPTION: CT - Head Brain Wo Cont - 10/01/2021 8:41 pm CLINICAL HISTORY: Headache, sudden, severe, history Chiari malformation COMPARISON: No comparisonsHead Brain Wo Cont dated 08/28/2020 TECHNIQUE: Axial 5 mm thick images of the head were obtained without IV contrast. All CT scans are performed using dose optimization technique as appropriate and may include automated exposure control or mA/KV adjustment according to patient size. FINDINGS: No intracranial hemorrhage is present. No midline shift. An acute cortical based infarctio n is not seen. No abnormal extra-axial fluid collections. Lateral ventricles are narrow. Third ventri tanya is generally effaced. Ventricular pattern is similar to prior study. 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 Mastoid air cells and visualized portions of the paranasal sinuses are clear. No acute bony findings. IMPRESSION: No hemorrhage, mass or acute intracranial finding. The narrowed ventricle pattern is similar to the prior study. Appearance of the CT study would be con sistent with pseudotumor cerebri and needs correlation with clinical findings.
[2021-10-01 21:10] LABS: Urine Blood 1+ (Negative); Urine Glucose Negative (Negative); Urine Protein Negative (Negative); Urine pH 7.5 (5.0-7.0)
[2021-10-01 21:17] LABS: Absolute Lymphocytes (CBC) 2.6 K/uL (0.7-4.9); Hematocrit 39.5 % (36.0-45.0); Lymphocytes % 30.6 % (15.3-44.8); MPV 8.8 fL (7.6-11.3); RBC Red Blood Cell Count 4.67 M/uL (3.86-4.86)
[2021-10-01 21:28] LABS: Protime INR 1.04
[2021-10-01] MEDS ORDERED: LORazepam 2 MG/ML VIAL ONE (21:47)
[2021-10-01 21:54] LABS: Potassium 4.3 mmol/L (3.5-5.1)
--- NOTE | 2021-10-01 22:47 | ER ---
Nurse's Notes [facility] Name: Letty Hall Age: 26 yrs Sex: Female : 1995 Arrival Date: 10/01/2021 Time: 19:34 Bed 16 Private MD: Diagnosis: Pseudotumor Cerebri, Headache, Blurry Vision Presentation: 10/01 19:59 Chief complaint: Patient states: "I've been having nosebleeds, headaches, dizziness, I as6 haven't had a spinal tap in several years". Coronavirus screen: At this time, the client does not indicate any symptoms associated with coronavirus-19. Ebola Screen: No symptoms or risks identified at this time. Initial Sepsis Screen: Does the patient meet any 2 criteria? No. Patient's initial sepsis screen is negative. Does the patient have a suspected source of infection? No. Patient's initial sepsis screen is negative. Risk Assessment: Do you want to hurt yourself or someone else? Patient reports no desire to harm self or others. Onset of symptoms was September 09, 2021. 19:59 Method Of Arrival: Ambulatory as6 19:59 Acuity: BHAKTI 3 as6 Triage Assessment: 20:03 Headache History: The patient has had previous headaches and this one is similar to as6 previous episodes. General: Appears in no apparent distress. Behavior is calm, cooperative. Pain: Complains of pain in head Pain currently is 8 out of 10 on a pain scale. Pain began gradually, Also complains of sleeplessness. Neuro: Reports dizziness, headache. 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 as6 Historical: - Allergies: 20:02 Haldol; as6 20:02 VANCOMYCIN AND DERIVATIVES; as6 - Home Meds: 20:02 calcium carbonate 500 mg calcium (1,250 mg) Oral tab 2500 mg four times a day [Active]; as6 magnesium oxide 400 mg Oral tab daily [Active]; Methocarbamol Oral [Active]; Potassium Chloride 75 mg Oral 1 tab daily as needed [Active]; Vitamin D3 Oral [Active]; - PMHx: 20:02 Anxiety; Depression; GERD; hypocalcemia; hypoparathyroidism; psuedo cranial as6 hypertension; Sinus Tachycardia; - PSHx: 20:02 Cholecystectomy; Tonsillectomy; as6 - Immunization history:: Client reports having NOT received the Covid vaccine. - Social history:: Smoking status: Patient reports the use of cigarette tobacco products, smokes one-half pack cigarettes per day. Screenin:14 Abuse screen: Denies threats or abuse. Denies injuries from another. Nutritional lg3 screening: No deficits noted. Tuberculosis screening: No symptoms or risk factors identified. Fall Risk None identified. Assessment: 21:14 General: Appears in no apparent distress. comfortable, Behavior is calm, cooperative. lg3 Pain: Complains of pain in head. Neuro: No deficits noted. Harrell Agitation-Sedation Scale (RASS): 0 - Alert and Calm Level of Consciousness is awake, alert, obeys commands, Oriented to person, place, time, situation. Cardiovascular: No deficits noted. Denies chest pain, shortness of breath, Capillary refill < 3 seconds Clubbing of nail beds is absent JVD is absent Patient's skin is warm and dry. Respiratory: No deficits noted. Airway is patent Trachea midline Respiratory effort is even, unlabored, Respiratory pattern is regular, symmetrical. GI: No deficits noted. No signs and/or symptoms were reported involving the gastrointestinal system. Abdomen is round non-distended. : No deficits noted. No signs and/or symptoms were reported regarding the genitourinary system. EENT: No deficits noted. No signs and/or symptoms were reported regarding the EENT system. EENT: Reports blurred vision. Derm: No deficits noted. No signs and/or symptoms reported regarding the dermatologic system. Skin is intact, is healthy with good turgor, Skin is dry, Skin is pink, warm \\T\\ dry. Musculoskeletal: No deficits noted. No signs and/or symptoms reported regarding the musculoskeletal system. Circulation, motion, and sensation intact. Range of motion: intact in all extremities. 22:22 Reassessment: Patient appears in no apparent distress at this time. No changes from lg3 previously documented assessment. Patient and/or family updated on plan of care and expected duration. Pain level reassessed. Patient is alert, oriented x 3, equal unlabored respirations, skin warm/dry/pink. Vital Signs: 19:59 BP 118 / 78; Pulse 99; Resp 18 S; Temp 98.7(O); Pulse Ox 98% on R/A; Weight 115.67 kg as6 (R); Height 5 ft. 5 in. (165.10 cm) (R); Pain 8/10; 22:23 BP 122 / 82; Pulse 97; Resp 17; Pulse Ox 99% on R/A; lg3 19:59 Body Mass Index 42.43 (115.67 kg, 165.10 cm) as6 ED Course: 19:34 Patient arrived in ED. bp1 20:02 Triage completed. as6 20:04 Arm band placed on. as6 20:15 Danyel Up MD is Attending Physician. kdr 20:18 Seema Aponte, NYA is Primary Nurse. lg3 20:42 CT Head Brain wo Cont In Process Unspecified. EDMS 21:02 Basic Metabolic Panel Sent. lg3 21:02 CBC with Diff Sent. lg3 21:02 PT-INR Sent. lg3 21:14 Patient has correct armband on for positive identification. Bed in low position. Call lg3 light in reach. Side rails up X 1. Client placed on continuous cardiac and pulse oximetry monitoring. NIBP monitoring applied. Door closed. Noise minimized. Warm blanket given. Family accompanied patient. 21:14 Inserted saline lock: 20 gauge in right antecubital area, using aseptic technique. lg3 Blood collected. 21:16 pt pulled out IV catheter by accident. Notified provider. Per , ok to keep IV lg3 discontinued at this time. 22:42 Ga Valera MD is Hospitalizing Provider. kdr 23:08 COVID-19 SARS RT PCR (Document "Date of Onset" if Symptomatic) Sent. lg3 05 02:18 No provider procedures requiring assistance completed. Patient admitted, IV remains in tw5 place. intact, No redness/swelling at site. Administered Medications: 10/01 22:09 Drug: Ativan (LORazepam) 1 mg Route: IVP; Site: left antecubital; lg3 22:22 Follow up: Response: No adverse reaction; RASS: Alert and Calm (0) lg3 23:08 Drug: Diamox Sequels (acetaZOLAMIDE) Extended Release Capsule 500 mg Route: PO; lg3 23:08 Follow up: Response: No adverse reaction lg3 23:08 Not Given (not avaliablee): Topamax (topiramate) 25 mg PO once lg3 10/02 00:07 Drug: morphine 4 mg Route: IVP; Site: left antecubital; lg3 00:08 Follow up: Response: No adverse reaction; RASS: Alert and Calm (0) lg3 00:07 Drug: Zofran (Ondansetron) 4 mg Route: IVP; Site: left antecubital; lg3 00:08 Follow up: Response: No adverse reaction lg3 00:48 Drug: Nicoderm CQ Patch 21 mg/24 hr 1 patches Route: Transdermal; Site: affected area; lg3 00:49 Follow up: Response: No adverse reaction lg3 Medication: 10/01 21:14 VIS not applicable for this client. lg3 Outcome: 22:46 Decision to Hospitalize by Provider. kdr 10/02 02:18 Admitted to ER Hold. Please see [facility] for further documentation. tw5 Condition: stable Instructed on the need for admit. 15:56 Patient left the ED. tw2 Signatures: Dispatcher [employer] EDMS Danyel Up MD MD kdr Vanessa Redman RN RN tw2 Seema Aponte RN RN lg3 Debra Cardenas Tiffany tw5 Juan C Coyle RN RN as6
--- NOTE | 2021-10-01 22:47 | EDPHYS ---
Physician Documentation [facility] Name: Letty Hall Age: 26 yrs Sex: Female : 1995 Arrival Date: 10/01/2021 Time: 19:34 Bed 16 Private MD: ED Physician Danyel Up HPI: 10/01 23:03 This 26 yrs old Female presents to ER via Ambulatory with complaints of Dizziness, Nose kdr Bleed, Headache. 23:03 Patient states that several months ago she started having headaches and blurry vision. kdr She is also recently experienced some swishing sounds in her ears. All of these symptoms describe her usual prodrome prior to needing a lumbar puncture to reduce her CSF pressure. She has also had some mild blurry vision. She has not had an LP since she was at [facility] about 7 years ago.. Onset: The symptoms/episode began/occurred gradually, 3 month(s) ago. Severity of symptoms: At their worst the symptoms were mild in the emergency department the symptoms are unchanged. The patient has not experienced similar symptoms in the past. The patient has not recently seen a physician. 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 as6 Historical: - Allergies: 20:02 Haldol; as6 20:02 VANCOMYCIN AND DERIVATIVES; as6 - Home Meds: 20:02 calcium carbonate 500 mg calcium (1,250 mg) Oral tab 2500 mg four times a day [Active]; as6 magnesium oxide 400 mg Oral tab daily [Active]; Methocarbamol Oral [Active]; Potassium Chloride 75 mg Oral 1 tab daily as needed [Active]; Vitamin D3 Oral [Active]; - PMHx: 20:02 Anxiety; Depression; GERD; hypocalcemia; hypoparathyroidism; psuedo cranial as6 hypertension; Sinus Tachycardia; - PSHx: 20:02 Cholecystectomy; Tonsillectomy; as6 - Immunization history:: Client reports having NOT received the Covid vaccine. - Social history:: Smoking status: Patient reports the use of cigarette tobacco products, smokes one-half pack cigarettes per day. ROS: 23:03 Constitutional: Negative for fever, chills, and weight loss, Eyes: Negative for injury, kdr pain, redness, and discharge, ENT: Negative for injury, pain, and discharge, Neck: Negative for injury, pain, and swelling, Cardiovascular: Negative for chest pain, palpitations, and edema, Respiratory: Negative for shortness of breath, cough, wheezing, and pleuritic chest pain, Abdomen/GI: Negative for abdominal pain, nausea, vomiting, diarrhea, and constipation, Back: Negative for injury and pain, : Negative for injury, bleeding, discharge, and swelling, MS/Extremity: Negative for injury and deformity, Skin: Negative for injury, rash, and discoloration, Psych: Negative for depression, anxiety, suicide ideation, homicidal ideation, and hallucinations, Allergy/Immunology: Negative for hives, rash, and allergies, Endocrine: Negative for neck swelling, polydipsia, polyuria, polyphagia, and marked weight changes, Hematologic/Lymphatic: Negative for swollen nodes, abnormal bleeding, and unusual bruising. 23:03 Neuro: Positive for dizziness, headache, visual changes, weakness. Exam: 23:03 Constitutional: This is a well developed, well nourished patient who is awake, alert, kdr and in no acute distress. Head/Face: Normocephalic, atraumatic. Eyes: Pupils equal round and reactive to light, extra-ocular motions intact. Lids and lashes normal. Conjunctiva and sclera are non-icteric and not injected. Cornea within normal limits. Periorbital areas with no swelling, redness, or edema. Neck: Trachea midline, no thyromegaly or masses palpated, and no cervical lymphadenopathy. Supple, full range of motion without nuchal rigidity, or vertebral point tenderness. No Meningismus. Chest/axilla: Normal chest wall appearance and motion. Nontender with no deformity. No lesions are appreciated. Cardiovascular: Regular rate and rhythm with a normal S1 and S2. No gallops, murmurs, or rubs. Normal PMI, no JVD. No pulse deficits. Respiratory: Lungs have equal breath sounds bilaterally, clear to auscultation and percussion. No rales, rhonchi or wheezes noted. No increased work of breathing, no retractions or nasal flaring. Abdomen/GI: Soft, non-tender, with normal bowel sounds. No distension or tympany. No guarding or rebound. No evidence of tenderness throughout. Back: No spinal tenderness. No costovertebral tenderness. Full range of motion. Skin: Warm, dry with normal turgor. Normal color with no rashes, no lesions, and no evidence of cellulitis. MS/ Extremity: Pulses equal, no cyanosis. Neurovascular intact. Full, normal range of motion. Neuro: Awake and alert, GCS 15, oriented to person, place, time, and situation. Cranial nerves II-XII grossly intact. Motor strength 5/5 in all extremities. Sensory grossly intact. Cerebellar exam normal. Normal gait. Psych: Awake, alert, with orientation to person, place and time. Behavior, mood, and affect are within normal limits. Vital Signs: 19:59 BP 118 / 78; Pulse 99; Resp 18 S; Temp 98.7(O); Pulse Ox 98% on R/A; Weight 115.67 kg as6 (R); Height 5 ft. 5 in. (165.10 cm) (R); Pain 8/10; 22:23 BP 122 / 82; Pulse 97; Resp 17; Pulse Ox 99% on R/A; lg3 19:59 Body Mass Index 42.43 (115.67 kg, 165.10 cm) as6 MDM: 22:46 Patient medically screened. kdr 23:03 Data reviewed: vital signs, nurses notes, lab test result(s), radiologic studies. kdr Counseling: I had a detailed discussion with the patient and/or guardian regarding: the historical points, exam findings, and any diagnostic results supporting the discharge/admit diagnosis, lab results, radiology results. ED course: Patient was agreeable to and had a full expectation of possibly getting a lumbar puncture. On my assessment, the patient was not a good candidate for a in the ED lumbar puncture as her body habitus and ability to withstand the assessment and intervention were sketchy at best. Patient had significant tenderness to even the slightest palpation of her lower back. There was an obvious scar tissue present in the primary area for the lumbar puncture penetration. Based on this assessment, I evaluated the patient and discussed with Dr. Fitzpatrick. It was determined that the patient could be started on p.o. medications including Diamox and Topamax and then seen by radiology tomorrow for a fluoroscopy guided lumbar puncture. Patient was agreeable to this treatment plan and was admitted in good condition. Patient was otherwise stable and nontoxic at a time.. 10/01 20:29 Order name: Basic Metabolic Panel; Complete Time: 22:38 kdr 10/01 20:29 Order name: CBC with Diff; Complete Time: 22:38 kdr 10/01 20:29 Order name: PT-INR; Complete Time: 22:38 kdr 10/01 21:10 Order name: Urine Dipstick-Ancillary; Complete Time: 21:14 EDMS 10/01 22:06 Order name: Urine --Ancillary (enter results); Complete Time: 22:38 wm 10/01 22:43 Order name: COVID-19 SARS RT PCR (Document "Date of Onset" if Symptomatic) la1 10/01 20:29 Order name: CT Head Brain wo Cont; Complete Time: 21:14 kdr 10/02 03:38 Order name: Basic Metabolic Panel EDMS 10/02 03:38 Order name: Magnesium EDMS 10/02 14:25 Order name: Basic Metabolic Panel [facility] 10/02 14:25 Order name: Magnesium [facility] 10/01 20:29 Order name: IV Saline Lock; Complete Time: 21:21 kdr 10/01 20:29 Order name: Labs collected and sent; Complete Time: 21:02 kdr 10/01 20:29 Order name: Urine Test (obtain specimen); Complete Time: 21:11 kdr 10/01 20:29 Order name: Urine Dipstick-Ancillary (obtain specimen); Complete Time: 21:10 kdr 10/01 22:07 Order name: Lumbar Puncture Consent; Complete Time: 22:22 la1 10/01 22:07 Order name: Lumbar Puncture Setup; Complete Time: 22:22 la1 Administered Medications: 22:09 Drug: Ativan (LORazepam) 1 mg Route: IVP; Site: left antecubital; lg3 22:22 Follow up: Response: No adverse reaction; RASS: Alert and Calm (0) lg3 23:08 Drug: Diamox Sequels (acetaZOLAMIDE) Extended Release Capsule 500 mg Route: PO; lg3 23:08 Follow up: Response: No adverse reaction lg3 23:08 Not Given (not avaliablee): Topamax (topiramate) 25 mg PO once lg3 10/02 00:07 Drug: morphine 4 mg Route: IVP; Site: left antecubital; lg3 00:08 Follow up: Response: No adverse reaction; RASS: Alert and Calm (0) lg3 00:07 Drug: Zofran (Ondansetron) 4 mg Route: IVP; Site: left antecubital; lg3 00:08 Follow up: Response: No adverse reaction lg3 00:48 Drug: Nicoderm CQ Patch 21 mg/24 hr 1 patches Route: Transdermal; Site: affected area; lg3 00:49 Follow up: Response: No adverse reaction lg3 Disposition Summary: 10/01/21 22:46 Hospitalization Ordered Hospitalization Status: Observation kdr Provider: Ga Valera Condition: Fair kdr Problem: an acute exacerbation kdr Symptoms: have improved kdr Bed/Room Type: Standard kdr Location: Telemetry/MedSurg (observation)(10/02/21 14:43) bd Room Assignment: [facility](10/02/21 15:07) ja1 Diagnosis - Pseudotumor Cerebri, Headache, Blurry Vision kdr Forms: - Medication Reconciliation Form kdr - SBAR form kdr Signatures: Dispatcher [employer] EDMS Lola Baxter Martha RN RN Danyel Up MD MD kdr Gildardo Jimenez, WEEKEND RECEPTIONIST-C WEEKEND RECEPTIONIST-Cla1 Scott Mosquera, RN RN ja1 Seema Aponte RN RN lg3 Suzie Love tw5 Juan C Coyle RN RN as6 Corrections: (The following items were deleted from the chart) 10/01 23:01 22:46 Telemetry/MedSurg (observation) kdr 23:01 22:46 kdr 10/02 14:43 10/01 23:01 [facility] ER HOLD mw bd 10/02 14:43 10/01 23:01 ERHOLD- mw bd 10/02 15:07 14:43 221 [facility]1
[2021-10-01] MEDS ORDERED: acetaZOLAMIDE 250 MG TAB ONE (22:59)
--- NOTE | 2021-10-01 23:16 | P.HP ---
Certification for Inpatient Patient admitted to: Observation With expected LOS: <2 Midnights Patient will require the following post-hospital care: None Practitioner: I am a practitioner with admitting privileges, knowledge of patient current condition, hospital course, and medical plan of care. Services: Services provided to patient in accordance with Admission requirements found in Title 42 Section 412.3 of the Code of Federal Regulations Patient History Date of Service: 10/01/21 Reason for admission: Pseudotumor cerebri, headache History of Present Illness: Procedural female with history of pseudotumor cerebri, Sjogren's, lupus, rheumatoid arthritis, hypoparathyroidism presents emergency department for headache, blurry vision and nosebleeds. Patient reports that she last had a lumbar puncture approximately 6 years ago has not been following up with neurology on outpatient basis for financial reasons. She was evaluated here in the emergency department her labs were unremarkable CT was significant for narrowed ventricle pattern similar to prior study consistent with pseudotumor cerebri. ED physician discussed case with neurology who recommends therapeutic lumbar puncture and initiation of Diamox, Topamax. ED physician attempted lumbar puncture but given patient's body habitus and anxiety from previous procedures was unable to perform procedure, ED physician then discussed case with radiology who reported they will be available for fluoroscopic lumbar puncture in the morning which is to admit under observation for therapeutic lumbar puncture and further neurological evaluation. Allergies haloperidol [From Haldol] Allergy (Unverified 05/10/17 20:42) Unknown No Known Drug Allergies Allergy (Unverified 07/10/17 14:28) Unknown Morphine Allergy (Uncoded 05/27/15 23:49) Unknown unknown antibiotic Allergy (Uncoded 05/27/15 23:49) Unknown VA Allergy (Uncoded 06/05/17 12:30) Unknown VANCOMYCIN AN Allergy (Uncoded 09/28/16 17:29) Unknown VANCOMYCIN AND KELLEN Allergy (Uncoded 08/27/16 22:41) Unknown VANCOMYCIN AND DERIVAT Allergy (Uncoded 05/10/17 20:42) Unknown - Past Medical/Surgical History -: Pseudotumor cerebri -: Sjogren's, RA, lupus -: Hypoparathyroidism -: Sinus tachycardia -: Cholecystectomy -: D&C Psychosocial/ Personal History: Patient lives at home with family - Family History Mother -: Hypertension Father -: Hypertension - Social History Smoking Status: Current every day smoker Counseled patient to stop smoking for: less than 10 minutes Smoking therapy provided: Yes Alcohol use: Yes CD- Drugs: Yes Caffeine use: Yes Place of Residence: Home Review of Systems 10-point ROS is otherwise unremarkable Neurological: Other (POWERS, blurry vision) Physical Examination - Physical Exam General: Alert, In no apparent distress, Oriented x3 HEENT: Atraumatic, PERRLA, Mucous membr. moist/pink, EOMI, Sclerae nonicteric Neck: Supple, 2+ carotid pulse no bruit, No LAD, Without JVD or thyroid abnormality Respiratory: Clear to auscultation bilaterally, Normal air movement Cardiovascular: Regular rate/rhythm, Normal S1 S2 Gastrointestinal: Normal bowel sounds, No tenderness Musculoskeletal: No tenderness Integumentary: No rashes Neurological: Normal speech, Normal strength at 5/5 x4 extr, Normal tone, Normal affect - Studies Laboratory Data (last 24 hrs) 10/01/21 21:01: PT 11.5, INR 1.04 10/01/21 21:01: WBC 8.3, Hgb 13.3, Hct 39.5, Plt Count 237 10/01/21 21:01: Sodium 138, Potassium 4.3, BUN 16, Creatinine 0.80, Glucose 91 Assessment and Plan - Plan Assessment: Pseudotumor cerebri, headache, blurry vision Sjogren's/lupus/rheumatoid arthritis Hypoparathyroidism Plan: Pseudotumor cerebri, headache, blurry vision: Neurology contacted while pt was in ED. Started on diamox and topiramate. Fluoroscopic lumbar puncture ordered as ED provider was unable to complete procedure. Appreciate further input from neurology. Sjogren's/lupus/rheumatoid arthritis: Continue home medications Hypoparathyroidism: Stable. DVT PPX: SCD Code status: Full Discharge Plan: Home Plan to discharge in: 24 Hours - Advance Directives Does patient have a Living Will: No Does patient have a Durable POA for Healthcare: No - Code Status/Comfort Care Code Status Assessed: Yes (Full Code) Critical Care: No Time Spent Managing Pts Care (In Minutes): 55
[2021-10-02] MEDS ORDERED: ONDANSETRON 4 MG/2 ML VIAL ONE ×2 (00:07→09:19)
[2021-10-02] MEDS ORDERED: MORPHINE 4 MG/ML SYR ONE (00:07)
[2021-10-02] MEDS ORDERED: NICOTINE 21 MG/PAT TD ONE (00:49)
[2021-10-02] MEDS ORDERED: NICOTINE 14 MG/PAT TD SCH (01:31)
[2021-10-02] MEDS ORDERED: HYDROCODONE/APAP 10/325 TAB PO ONE (01:40)
[2021-10-02] MEDS ORDERED: HYDROCODONE/APAP 10/325 TAB ONE (01:47)
[2021-10-02 03:38] LABS: Magnesium 1.8 mg/dL (1.8-2.4); Potassium 3.9 mmol/L (3.5-5.1)
[2021-10-02] MEDS ORDERED: HYDROCODONE/APAP 5/325 MG TAB ONE ×2 (06:36→14:10)
[2021-10-02] MEDS: HYDROCODONE/APAP 5/325 MG TAB PO PRN ×2 (06:53→14:07)
--- NOTE | 2021-10-02 07:22 | P.PN ---
Date of Service: 10/02/21 Subjective: unable to tolerate LP, states too uncomfortable, upset; thought she was going to be completely sedated given total of 1mg IV ativan, refused further attempts requesting transfer to [facility] states headache and blurred vision remain the same givne diamox x1 this morning, patient does not want to take any more, states last time she took it it "messed up my electrolytes and put me in the ICU within minutes" ROS: 10 point ROS as noted above, otherwise negative Physical exam GEN: Alert, oriented, upset HEENT: Normal conjunctiva, sclera anicteric CV: Regular rate and rhythm, no edema Pulm: Non-labored respirations on room air ABD: Soft, nontender, nondistended Integumentary: No rashes Neuro: agitated, moves all extremities, no focal deficits, does report blurred vision Problem List Pseudotumor cerebri, headache, blurry vision Sjogren's/lupus/rheumatoid arthritis Hypoparathyroidism multiple similar episodes in past, has had ~16 LPs through her life states last time was traumatic and she has anxiety over it. Ativan was not enough for her attempting transfer to [facility] per patient's request dc diamox, patient refusing; neurology consulted fur further recommendations continue topiramate pain medication PRN continue home medications VTE: SCDs Code: full Dispo: home, 24-48hrs transfer initiated, unfortunately I doubt will be successful, patient is uninsured Time Spent Managing Pts Care (In Minutes): 35
[2021-10-02] MEDS: NICOTINE 14 MG/PAT TD SCH ×2 (07:50→21:54)
[2021-10-02] MEDS ORDERED: acetaZOLAMIDE 250 MG TAB ONE (08:04)
[2021-10-02] MEDS ORDERED: acetaZOLAMIDE 250 MG TAB PO SCH (09:00)
[2021-10-02] MEDS ORDERED: LORazepam 2 MG/ML VIAL IV ONE ×2 (09:05→12:30)
[2021-10-02] MEDS: ONDANSETRON 4 MG/2 ML VIAL IV PRN ×2 (09:16→20:43)
[2021-10-02 14:23] LABS: Magnesium 1.9 mg/dL (1.8-2.4); Potassium 3.9 mmol/L (3.5-5.1)
[2021-10-02] MEDS: MORPHINE 4 MG/ML SYR IV PRN ×2 (16:27→20:16)
[2021-10-02] MEDS: TOPIRAMATE 25 MG TAB PO SCH (20:18)
--- NOTE | 2021-10-02 23:11 | RAD REPORT ---
EXAM DESCRIPTION: RAD - Lumbar Puncture For Dx - 10/02/2021 1:18 pm CLINICAL HISTORY: Headache COMPARISON: None. TECHNIQUE: The procedure, risks and alternatives to the procedure were discussed with the patient in detail. After answering all questions, both oral and written consent were obtained. Time-out procedu re was performed. The patient was placed in an oblique prone position on the fluoroscopic table. The skin of the lower back was prepped and draped in the usual sterile fashion. After anesthetizing the skin and deeper sof t tissues with 1% lidocaine, a 22 gauge needle was advanced towards the thecal sac at the L4-5 level. It was at this point that the patient reported discomfort and wish to terminate the procedure. IMPRESSION: Unsuccessful fluoroscopic guided lumbar puncture. The patient terminated the procedure p rior to thecal sac access due to discomfort.
[2021-10-03] MEDS: MORPHINE 4 MG/ML SYR IV PRN ×5 (00:56→19:47)
[2021-10-03] MEDS: ONDANSETRON 4 MG/2 ML VIAL IV PRN ×4 (00:57→19:48)
[2021-10-03 05:58] VITALS: BMI 43.6
[2021-10-03 06:10] LABS: Absolute Lymphocytes (CBC) 1.4 K/uL (0.7-4.9); Hematocrit 42.9 % (36.0-45.0); Lymphocytes % 28.6 % (15.3-44.8); MPV 9.1 fL (7.6-11.3); RBC Red Blood Cell Count 4.95 M/uL (3.86-4.86)
[2021-10-03 06:29] LABS: Albumin 3.5 g/dL (3.4-5.0); Bilirubin Total 1.3 mg/dL (0.2-1.0); Magnesium 2.1 mg/dL (1.8-2.4); Potassium 3.5 mmol/L (3.5-5.1); Protein, Total 8.6 g/dL (6.4-8.2)
--- NOTE | 2021-10-03 06:29 | P.PN ---
Date of Service: 10/03/21 Subjective: continues with headache, no change; feels norco made it worse morphine helped abdominal pain, intermittent, nausea/vomiting daily for years ROS: 10 point ROS as noted above, otherwise negative Physical exam GEN: Alert, oriented HEENT: Normal conjunctiva, sclera anicteric CV: Regular rate and rhythm, no edema Pulm: Non-labored respirations on room air ABD: Soft, mild epigastric tenderness to deep palpation Integumentary: No rashes Neuro: moves all extremities, does report blurred vision, EOMI Problem List Pseudotumor cerebri, headache, blurry vision elevated LFTs Sjogren's/lupus/rheumatoid arthritis Hypoparathyroidism multiple similar episodes in past, has had ~16 LPs through her life states last time was traumatic and she has anxiety over it. Ativan was not enough for her multiple health systems denied transfer will discuss further with radiology/anesthesia if they can coordinate for LP with sedation dc'd diamox 10/01, patient refused neurology consulted fur further recommendations continue topiramate pain medication PRN continue home medications LFTs elevated; unclear etiology; patient states was in 600s ~5-6 years ago, and nothing was done about it, that she recalls no recent labs to compare it to. daily morning bilious emesis and daily epigastric cramping pain for the last year will obtain U/S for further evaluation, prior CT noted fatty liver possibly from autoimmune disease, possible but rare from diamox - only received 1 dose VTE: SCDs Code: full Dispo: home, 24-48hrs transfer initiated, but denied Time Spent Managing Pts Care (In Minutes): 35
--- NOTE | 2021-10-03 08:42 | RAD REPORT ---
EXAM DESCRIPTION: US - Liver Only - 10/03/2021 8:10 am CLINICAL HISTORY: elevated LFTs COMPARISON: No comparisons FINDINGS: The liver demonstrates diffuse fatty infiltration.No focal liver lesion or intrahepatic bi liary dilatation.No evidence of portal vein thrombosis. 2 cm hypoechoic structure in the hepatic hilum/head of the pancreas is noted. This could be a mass or lymph node. IMPRESSION: Fatty liver. 2 cm hypoechoic structure near the hepatic hilum/of the pancreas, recommend followup CT abdomen/pelvi s with contrast for further evaluation.
[2021-10-03] MEDS ORDERED: PROMETHAZINE INJ 25 MG/ML AMP IV PRN (09:04)
[2021-10-03 10:25] LABS: Amylase 28 U/L (25-115); Lipase 78 U/L (73-393)
--- NOTE | 2021-10-03 11:17 | RAD REPORT ---
EXAM DESCRIPTION: CTAbdomen Pelvis W Contrast - 10/03/2021 11:02 am CLINICAL HISTORY: Abdominal pain. eval 2cm mass/lesion, pancreas, elevated LFTs COMPARISON: Abdomen Pelvis W Contrast dated 11/05/2018 TECHNIQUE: Biphasic CT imaging of the abdomen and pelvis was performed with 100 ml non-ionic IV cont rast. All CT scans are performed using dose optimization technique as appropriate and may include automated exposure control or mA/KV adjustment according to patient size. FINDINGS: The lung bases are clear.Cholecystectomy. The liver, spleen, pancreas, adrenal glands and kidneys are within normal limits. Mildly prominent ly mph node is seen adjacent to the pancreatic head measuring 9 mm and benign in appearance. No bowel obstruction, free air, free fluid or abscess. The appendix is normal. No evidence of signi ficant lymphadenopathy. No suspicious bony findings. IMPRESSION: No worrisome pancreatic abnormality is seen. 9 mm benign-appearing lymph node adjacent to the pancreatic head.
--- NOTE | 2021-10-03 17:37 | P.CNS ---
Date of Consult: 10/03/21 Reason for consult: Abdominal pain History of present illness: Patient is a 26-year-old female who presented with symptoms of pseudotumor cerebri and since has developed abdominal pain and elevated liver function tests. Patient states that she has been treated with steroids in the past and has not refilled her medications because of financial reasons. She has not followed up with neurologist. She did have a therapeutic lumbar puncture in the past. She was found to have some epigastric tenderness and LFTs were elevated; therefore, I was consulted. Patient denies any nausea or vomiting currently. She is on Zofran. She has diarrhea but no constipation and no blood in her stool. Patient denies dysuria or hematuria. Patient denies sore throat, runny nose and cough. Patient did have a headache prior to admission. Patient denies fever or chills. Review of systems: Otherwise unremarkable Past medical history: Sjogren's syndrome, pseudotumor cerebri, hypoparathyroidism Past surgical history: Cholecystectomy, D&C Allergies: Reviewed Social history: Patient does smoke cigarettes and drink alcohol. Patient has be en counseled. Family history: Pancreatic cancer Vital signs: Vital signs stable, afebrile Physical exam: Awake, alert and oriented x3 Head and neck exam: Cranial nerves II through XII grossly within normal limits, no neck masses, no JVD, throat clear and neck supple Chest: Clear Heart: S1-S2 Abdomen: Soft, nondistended, positive bowel sounds and minimal tenderness in the epigastric region with no rebound, rigidity or guarding Extremity: Neurovascular intact, nontender Neuro: Nonfocal Diagnostic data: Patient's AST and ALT are significantly elevated into the 600 range, total bili and alkaline phosphatase are mildly elevated. Lipase is normal. CT scan of the abdomen pelvis reveals enlarged lymph node in the olya hepatis with no pancreatic mass. Assessment: Abdominal pain with elevated liver function test elevation with history of pseudotumor cerebri Plan/recommendation: The etiology of the elevated liver function tests is unclear at this time. We will repeat the LFTs in the morning should they still be up or increasing patient would benefit from a MRCP to rule out obstructive causes. Should her symptoms persist, GI consultation would be appropriate. Patient is scheduled for a lumbar puncture with IV sedation as she was unable to tolerate the lumbar puncture without IV sedation. We will follow this patient while in the hospital. There is no need for any acute surgical intervention at this time. CC:
[2021-10-03] MEDS: TOPIRAMATE 25 MG TAB PO SCH (21:35)
[2021-10-03] MEDS: NICOTINE 14 MG/PAT TD SCH (21:35)
[2021-10-03] MEDS ORDERED: POLYETHYL GLY 3350 17 GM/DOSE PO ONE (21:51)
--- NOTE | 2021-10-03 22:40 | CON ---
Reason For Consultation: Consultation called because of possible worsening pseudotumor cerebri requi ring high volume lumbar puncture. History Of Present Illness: Ms. Hall is a 26-year-old right handed patient with a long hi story of pseudotumor cerebri and has had multiple lumbar punctures that are high volume, perhaps 6 or 7 according to the patient. However, the last one was about 7 years ago in [facility] and s he did very well until about 3 months ago when symptoms became worse, blurred vision, poor gait, diff iculty with balance and coordination. She came to [facility] and was actually offered Diamo x, but said that caused lots of problems in the past. Actually there was an attempt made for high vo lume lumbar puncture yesterday, but due to significant discomfort the patient said the procedure was unsuccessful. It will be re-attempted again tomorrow. At this point, the patient has had pain management with morphine, [place], and topiramate. She has a N icoderm patch for tobacco dependency. Past Medical History: As noted, anxiety, depression, gastroesophageal reflux, hypoparathyroidism, hy pocalcemia, tachycardia. Past Surgical History: Cholecystectomy and tonsillectomy. Allergies: HALDOL AND VANCOMYCIN. Medications: At home are calcium carbonate 500 mg 4 times daily, magnesium oxide 400 mg daily, daily, vitamin D daily. Family History: Noncontributory. Social History: She smokes half pack of cigarettes daily. Reports not having insurance and she is a ttempting to get insurance. Review of Systems: She denies any recent fevers, chills, nausea, vomiting, myalgias, or arthralgias. She has headaches. She has poor gait and difficulty with vision and balance coordination. Physical Examination: Vital Signs: Blood pressure 100/59, pulse 81, respiratory rate 18, temperature 98.4, oxygen saturati on 99% on room air. Weight 262 pounds, height 5 feet 5 inches, BMI 43.6. General: Ms. Hall is resting in bed. She is in mild distress due to mild headaches and backaches f ollowing unsuccessful lumbar puncture. HEENT: She is otherwise normocephalic, atraumatic. Sclerae anicteric. Oropharynx is pink and moist . Neck: Supple. Chest: Clear. Heart: Regular. Extremities: No significant edema, cyanosis, or clubbing. Neurologic: She is alert and oriented to person, place, time, and situation. She does not have any focal cranial nerve, motor, coordination, gait, or sensory deficits. Laboratory Studies: Complete blood count with differential is unremarkable. Coagulation panel unrem arkable. Her basic metabolic panel is unremarkable. Calcium low at 7.2, AST elevated at 605, ALT el evated at 647, alkaline phosphate elevated at 182. Lumbar puncture is pending. COVID-19 test is neg ative. Assessment: Ms. Hall is a 26-year-old with multiple medical problems as indicated. She has pseudot umor cerebri and needing high volume lumbar puncture that will be scheduled. She could not tolerate Diamox. Plan: 1.High volume lumbar puncture, at least 30 cc. 2.Continue with Topamax 25 mg at bedtime. 3.Continue pain management. 4.Continue Nicoderm patch. 5.The patient to follow up when the LP is done. NICOLETTE/PIERCE Voice ID: [id number] Report ID: [id number]
[2021-10-04] MEDS: MORPHINE 4 MG/ML SYR IV PRN ×2 (03:31→08:04)
[2021-10-04] MEDS: ONDANSETRON 4 MG/2 ML VIAL IV PRN ×2 (03:31→08:04)
[2021-10-04 05:53] LABS: Absolute Lymphocytes (CBC) 1.7 K/uL (0.7-4.9); Hematocrit 40.7 % (36.0-45.0); Lymphocytes % 29.9 % (15.3-44.8); MPV 8.9 fL (7.6-11.3); RBC Red Blood Cell Count 4.71 M/uL (3.86-4.86)
[2021-10-04 06:12] LABS: Albumin 3.2 g/dL (3.4-5.0); Bilirubin Direct 0.4 mg/dL (0-0.2); Bilirubin Total 0.8 mg/dL (0.2-1.0); Magnesium 1.7 mg/dL (1.8-2.4); Potassium 3.7 mmol/L (3.5-5.1); Protein, Total 8.1 g/dL (6.4-8.2)
--- NOTE | 2021-10-04 06:24 | P.PN ---
Date of Service: 10/04/21 Subjective: ROS: 10 point ROS as noted above, otherwise negative Physical exam GEN: Alert, oriented HEENT: Normal conjunctiva, sclera anicteric CV: Regular rate and rhythm, no edema Pulm: Non-labored respirations on room air ABD: Soft, mild epigastric tenderness to deep palpation Integumentary: No rashes Neuro: moves all extremities, does report blurred vision, EOMI Problem List Pseudotumor cerebri, headache, blurry vision elevated LFTs Sjogren's/lupus/rheumatoid arthritis Hypoparathyroidism multiple similar episodes in past, has had ~16 LPs through her life states last time was traumatic and she has anxiety over it. Ativan was not enough for her multiple health systems denied transfer will discuss further with radiology/anesthesia if they can coordinate for LP with sedation dc'd diamox 10/01, patient refused neurology consulted fur further recommendations continue topiramate pain medication PRN continue home medications LFTs elevated; unclear etiology; patient states was in 600s ~5-6 years ago, and nothing was done about it, that she recalls no recent labs to compare it to. daily morning bilious emesis and daily epigastric cramping pain for the last year will obtain U/S for further evaluation, prior CT noted fatty liver possibly from autoimmune disease, possible but rare from diamox - only received 1 dose VTE: SCDs Code: full Dispo: home, 24-48hrs transfer initiated, but denied Time Spent Managing Pts Care (In Minutes): 35
[2021-10-04] MEDS ORDERED: CALCIUM GLUC 10% INJ 4.65 MEQ in NA CHLORIDE 0.9% 100 ML IV ONE (07:30)
[2021-10-04] MEDS ORDERED: CALCIUM GLUCONATE 1 GM IVPB 1 GM/50 ML BAG IV ONE (08:00)
[2021-10-04 10:24] VITALS: O2SAT 96
[2021-10-04] MEDS ORDERED: Ringers Lactate 1,000 ML IV ONE (11:53)
[2021-10-04] MEDS ORDERED: MIDAZOLAM HCL 2 MG/2 ML INJ ONE (12:18)
[2021-10-04] MEDS ORDERED: FENTANYL CITR 100 MCG/2 ML ONE (12:18)
[2021-10-04 14:19] VITALS: BP 107/57; TEMP 96.7
[2021-10-04 16:16] LABS: Appearance CLEAR (CLEAR); Body Fluid Source CSF; Color of fluid Colorless (COLORLESS); Fluid Total Volume 24.5 ml
[2021-10-04 16:24] LABS: CSF Glucose 57 mg/dL (40-70)
[2021-10-04 16:28] LABS: Body Fluid WBC 3 /mm^3
--- NOTE | 2021-10-06 21:00 | P.DS ---
Admission Date: 10/02/21 Discharge Date: 10/05/21 Disposition: ROUTINE DISCHARGE Discharge Condition: GOOD Reason for Admission: Pseudotumor cerebri, headache Consultations: Neurology - Dr. Fitzpatrick General Surgery - Dr. Burks Brief History of Present Illness: 26yo F, PMH: pseudotumor cerebri, Sjogren's, lupus, rheumatoid arthritis, hypoparathyroidism presents emergency department for headache, blurry vision and nosebleeds. Patient reports that she last had a lumbar puncture approximately 6 years ago has not been following up with neurology on outpatient basis for financial reasons. She was evaluated here in the emergency department her labs were unremarkable CT was significant for narrowed ventricle pattern similar to prior study consistent with pseudotumor cerebri. ED physician discussed case with neurology who recommends therapeutic lumbar puncture and initiation of Diamox, Topamax. ED physician attempted lumbar puncture but given patient's body habitus and anxiety from previous procedures was unable to perform procedure, ED physician then discussed case with radiology who reported they will be available for fluoroscopic lumbar puncture in the morning which is to admit under observation for therapeutic lumbar puncture and further neurological evaluation. Hospital Course: Problem List Pseudotumor cerebri, headache, blurry vision elevated LFTs, possibly secondary to diamox Fatty liver Sjogren's/lupus/rheumatoid arthritis Hypoparathyroidism Patient underwent LP for pseudotumor cerebri and had resolution of her symptoms. Opening pressures were noted to be very high, > 50. Her LFTs were noted to be elevated. U/S and CT abd/pelvis revealed fatty liver. Noted an enlarged ~1cm benign lymph node near liver/pancreas. Not causing any compression symptoms. LFTs improved the following day but still elevated. She reported remote history of having LFTs in 600s previously. Also has been having morning bilious emesis daily for the last ~year. She did received 1 dose of diamox, which has a rare chance of causing acute liver injury. Doubtful that one dose lead to this, but a possibility. Also at risk from her auto-immune disorders. Recommend follow up with GI in the next few weeks. Follow up with PCP within 1 week. Recommend repeat liver function tests. Vital Signs/Physical Exam: Temp Pulse Resp BP Pulse Ox 96.7 F L 66 16 107/57 L 96 10/04/21 14:18 10/04/21 14:18 10/04/21 14:18 10/04/21 14:18 10/04/21 14:18 Physical exam GEN: Alert, oriented HEENT: Normal conjunctiva, sclera anicteric CV: Regular rate and rhythm, no edema Pulm: Non-labored respirations on room air ABD: Soft, mild epigastric tenderness to deep palpation Integumentary: No rashes Neuro: moves all extremities, no focal deficit, EOMI Laboratory Data at Discharge: WBC 5.5 K/uL (4.3-10.9) 10/04/21 05:09 Hgb 13.7 g/dL (12.0-15.0) 10/04/21 05:09 Hct 40.7 % (36.0-45.0) 10/04/21 05:09 Plt Count 229 K/uL (152-406) 10/04/21 05:09 PT 11.5 SECONDS (9.5-12.5) 10/01/21 21:01 INR 1.04 10/01/21 21:01 Sodium 136 mmol/L (136-145) 10/04/21 05:09 Potassium 3.7 mmol/L (3.5-5.1) 10/04/21 05:09 BUN 15 mg/dL (7-18) 10/04/21 05:09 Creatinine 0.65 mg/dL (0.55-1.3) 10/04/21 05:09 Glucose 100 mg/dL (74-106) 10/04/21 05:09 Magnesium 1.7 mg/dL (1.8-2.4) L 10/04/21 05:09 Total Bilirubin 0.8 mg/dL (0.2-1.0) 10/04/21 05:09 AST 272 U/L (15-37) H D 10/04/21 05:09 ALT 687 U/L (12-78) H* 10/04/21 05:09 Alkaline Phosphatase 184 U/L (45-117) H 10/04/21 05:09 Amylase 28 U/L (25-115) 10/03/21 05:33 Lipase 78 U/L (73-393) 10/03/21 05:33 Home Medications: NK [No Home Meds] 10/02/21 Time spent managing pt's care (in minutes): 45
== END 2021-10-04 16:26 | disposition home or self-care (01) | DRG 103 ==
LOC: ER 19:29 → ERHOLD 23:15 → 2ND 10-02 15:24 → OBSVTOIN 10-02 17:44
PROVIDERS: ADMIT Hospitalist; ATTEND Hospitalist
PROC: 009U3ZZ Drainage of Spinal Canal, Percutaneous Approach (ICD-10-PCS; principal; 2021-10-04)
DX: G93.2 Benign intracranial hypertension (principal); R51.9 Headache, unspecified; H53.8 Other visual disturbances; M35.00 Sjogren syndrome, unspecified; M32.9 Systemic lupus erythematosus, unspecified; E20.9 Hypoparathyroidism, unspecified; M06.9 Rheumatoid arthritis, unspecified; R79.89 Other specified abnormal findings of blood chemistry; F17.210 Nicotine dependence, cigarettes, uncomplicated; K76.0 Fatty (change of) liver, not elsewhere classified; Z20.822 Contact with and (suspected) exposure to COVID-19
CPT/HCPCS: 36415; 70450; 74177; 76705; 77003; 80048; 80053; 81003; 81025; 82150; 82248; 82945; 83690; 83735; 84157; 85025; 85610; 87070; 89050; 96374; 96375; 99285; G0378; J0610; J2250; J2405; J2550; J3010; J7120; Q9967; U0003

== ENCOUNTER 2021-10-06 08:33 | Emergency (ER) | payer SELFPAY ==
--- OUTSIDE RECORDS SUMMARY | 2021-10-06 08:36 | XMS REPORT | Continuity of Care Document ---
:1995 Author Organization [facility] t Address [address] [place] [address] Care Team Providers Name Role Phone Juanito Norris Attending Clinician Unavailable PENNIE_Delvin Attending Clinician Unavailable Hyacinth Brown Attending Clinician [phone] Eliza Hines Attending Clinician Doctor Unassigned, Name Attending Clinician Unavailable Dotty_Papsuyapa Attending Clinician Unavailable Susan CARDOSO Attending Clinician AIDEE Attending Clinician Unavailable KELLY Admitting Clinician Unavailable Dotty_Pappas Admitting Clinician Unavailable DANNIELLE Admitting Clinician Unavailable Payers Payer Name Policy Type Policy Number Effective Date Expiration Date S jeremy F[place] - [id number] [facility] 3 (O) [place]OMEN'S [id number] HEALTH PROGRAM (MEDICAID) Problems Condition Condition Condition [...] Type Date Date Clinician haloperi DA Active ND [facility] dol 4-27 Clear 00:00: Bowen 00 [facility] vancomyc DA Active ND [facility] in 4-27 Clear 00:00: Bowen 00 [facility] haloperi DA Active ND MASTOIDITIS [facility] dol 4-27 Clear 00:00: Bowen [facility] vancomyc DA Active ND MASTOIDITIS [facility] in 4-27 Clear 00:00: Bowen 00 [facility] Haloperi Propensi Active Anaphylaxis U nivers dol [...] Source Sex Assigned At [facility] Exposure to Yes University of SARS-CoV-2 (event) [facility] History of tobacco Cigarette Smoker University of use [facility] Alcohol Comment occasional [facility] y [facility] Tobacco use and 2020-05-22 2020-05-22 Current user Univers ity of exposure 00:00:00 00:00:00 [facility] Cigarettes smoked 2020-05-22 2020-05-22 Univers ity of current (pack per 00:00:00 00:00:00 [facility] ) - Reported Branch Alcohol intake 2020-05-22 2020-05-22 Current drinker Unive rsity of 00:00:00 00:00:00 of alcohol [facility] (finding) [place] Smoking Status Start Date Stop Date Source Current every day smoker 2020-05-22 00:00:00 Uni versity of [facility] Medications Ordered Filled Start Stop Current Ordering Indication Dosage Frequency Signature Comments Components Source Medication Medication Date Date Medication? Clinician (SIG) Name Name HYDROcodone 2020- No 1{tbl} 1 tablet, Univers -acetaminop 05-23 Oral, ity of hen (NORCO 02:30: 01:27 ONCE, 1 [place] as 5) 5-325 mg 00 :00 dose, Tue Med ical tablet 1 05/22/20 at [facility] h tablet 2030, LAMIN [...] dose, 05/22/20 at 1730, LAMIN dicyclomine Yes [id number] 10mg Take 1 Univers (BENTYL) 10 1-12 capsule by it y of mg capsule 00:00: mouth [place] (four[place] Medical times Branch daily as needed for Abdominal pain. ondansetron Yes [id number] 4mg Take 1 Univers 4 mg 1-12 [...] to 7 days. Indication s: acute [facility] Yes Take by Un leonarda ORAL 0-03 mouth. ity of 20:28: [address]-05 Yes Take by Un leonarda ORAL 0-03 mouth. ity of 20:28: [address] 2017-05 Yes Take by Un leonarda ORAL 0-03 mouth. ity of 20:28: [address] GUAIFENESIN 2017-05 Yes Take by Un leonarda ORAL 0-03 mouth. ity of 20:28: [address] CALCIUM 2017-05 Yes 2500mg Take 2,500 [...] mouth ity of 20 mg 00:59: daily. [place] [address] Medical Branch vortioxetin 2017-0 Yes Take by Un leonarda e 10 mg Tab 6-08 mouth ity of 00:59: daily. [place] [address] Medical Branch topiramate 2017-0 Yes 25mg Take 25 mg U nivers (TOPAMAX) 6-08 by mouth ity of 25 mg 00:59: daily. [place] [address] Medical Branch magnesium 2017-0 Yes 400mg Take [...] mouth ity of 20 mg 00:59: daily. [place] [address] Medical Branch vortioxetin 2017-0 Yes Take by Un leonarda e 10 mg Tab 6-08 mouth ity of 00:59: daily. [place] [address] Medical Branch topiramate Yes 25mg Take 25 [...] mouth ity of 20 mg 00:59: daily. [place] [address] Medical Branch vortioxetin 0 Yes Take by Un leonarda e 10 mg Tab 6-08 mouth ity of 00:59: daily. [place] [address] Medical Branch topiramate 0 Yes 25mg Take [...] 6-08 daily. ity of MISC 00:59: Indication [place] [address] s: OTC Medical Branch clonazePAM 2017-0 Yes [...] mouth ity of 20 mg 00:59: daily. [place] [address] Medical Branch vortioxetin 0 Yes Take by Un leonarda e 10 mg Tab 6-08 mouth ity of 00:59: daily. [place] [address] Medical Branch topiramate 2018- Yes 25mg Take 25 mg U nivers (TOPAMAX) 6-08 by mouth ity of 25 mg 00:59: daily. [place] tablet Medical [place] magnesium 2017-0 Yes 400mg Take 400 Uni [...] 6-08 daily. ity of MISC 00:59: Indication [place] [address] s: OTC Medical Branch Vital Signs Vital Name Observation Time Observation Value Comments Source Systolic blood 2020-05-23 01:36:00 143 mm[Hg] Univer sity of pressure [facility] Diastolic blood 2020-05-23 01:36:00 99 mm[Hg] Unive rsity of pressure [facility] Heart rate 2020-05-23 01:36:00 94 /min Universi ty of [facility] Respiratory rate 2020-05-23 01:36:00 18 /min Univ ersity of [facility] Oxygen saturation in 2020-05-23 01:36:00 100 /min [facility] Arterial blood by [facility] Pulse oximetry Branch Body temperature 2020-05-23 01:15:52 37 Loli [facility] Body height 2020-05-22 22:41:[facility] [address] [facility] Body weight 2020-05-22 22:41:00 127.007 kg [facility] BMI 2020-05-22 22:41:00 46.59 kg/m2 [facility] Systolic blood 2020-05-23 01:36:00 143 mm[Hg] Univer sity of pressure [facility] Diastolic blood 2020-05-23 01:36:00 99 mm[Hg] [facility] Heart rate 2020-05-23 01:36:00 94 /min [facility] Respiratory rate 2020-05-23 01:36:00 18 /min [facility] Oxygen saturation in 2020-05-23 01:36:00 100 /min [facility] Arterial blood by [facility] Pulse oximetry [place] Body temperature 2020-05-23 01:15:52 37 [facility] Body height 2020-05-22 22:41:00 165.1 cm [facility] Body weight 2020-05-22 22:41:00 127.007 kg [facility] BMI 2020-05-22 22:41:00 46.59 kg/m2 [facility] Procedures Procedure Date / Time Performing Clinician Source Performed CT ABDOMEN PELVIS W 2020-05-23 00:46:11 Dao Nicolas [facility] POCT TEST 2020-05-23 00:09:00 Dao Nicolas [facility] LIPASE 2020-05-22 23:59:00 Dao Nicolas [facility] COMP. METABOLIC PANEL 2020-05-22 23:59:00 Dao Nicolas [facility] ([id number]) [facility] CBC WITH DIFF 2020-05-22 23:59:00 Dao Nicolas [facility] URINALYSIS 2020-05-22 23:59:00 Dao Nicolas [facility] CONSENT/REFUSAL FOR 2020-05-22 22:30:18 Doctor Unassigned, No [facility] Name Medical Branch AUTHORIZATION FOR 2019-07-28 05:01:00 Doctor Unassigned, No [facility] RELEASE OF PHI Name Medical Branch Encounters Start End Encounter Admission Attending Care Care Encounter Source Date/Time Date/Time Type Type Clinicians Facility Department ID 2021-03-[address] [facility] [id number] Univers 16:53:19 ity [facility] 2020-09-06 Inpatient Hu, Rosalva [facility]ACL DAYS [id number] [facility] 09:45:00 [id number] [facility] 2020-09-04 Inpatient Hu, Rosalva [facility]ACL DAYS [id number] [facility] 09:30:00 [id number] [facility] 2021-02-28 2021-02-28 Outpatient [facility] [address] [place] 10:39:00 10:39:00 _L 1021 [facility] 2021-02-28 2021-02-28 Outpatient [facility] d5a [id number] 00:00:00 00:00:00 , Nisa [id number] Hyacinth [id number] 2020-11-21 2020-11-21 Outpatient [facility] [address] [place] 01:00:00 01:00:00 _L 1020 [facility] 2020-11-21 2020-11-21 Outpatient [facility] 107 [place] 01:00:00 01:00:00 _L 0714 [facility] 2020-11-20 2020-11-20 Outpatient [facility] 107 [place] 06:10:00 06:10:00 _L 0713 [facility] 2020-11-20 2020-11-20 Outpatient [facility] 58a [id number] 00:00:00 00:00:00 , iNsa [id number] Hyacinth [id number] 2020-05-22 2020-05-22 Emergency Sivan, [facility] [id number] Univers 16:43:00 20:04:00 Dao Eliza Bradly 350.1.13.10 i ty [place] [id number] [facility] 084 [place] 2020-05-22 2020-05-22 Emergency Sivan, [facility] [id number] 16:43:00 20:04:00 Dao Kay Bradly 350.1.13.10 [place] 4.2.7.2.686 [place] [id number] [facility] 2020-05-22 2020-05-22 Orders Doctor ALFRED 1.2.840.114 [id number] Univers 00:00:00 00:00:00 Only Unassigned, MIKHAIL 350.1.13.10 ity of [place] [facility] 4.2.7.2.686 [place] as [id number] [facility] 009 [place] 2020-05-22 2020-05-22 Orders Doctor ALFRED 1.2.840.114 [id number] 00:00:00 00:00:00 Only Unassigned, MIKHAIL 350.1.13.10 [place] [facility] 4.2.7.2.686 [id number] [id number] 2020-02-15 2020-02-15 Outpatient G_Pappas [facility] [id number] [place] 12:05:00 12:05:00 1007 [facility] 2019-08-02 2019-08-[address] [facility] [id number] Univers 18:40:00 18:40:00 [id number] ity of [facility] 2019-08-02 2019-08-[address] [facility] [id number] Univers 18:40:00 18:40:00 ity [facility] 2019-08-02 2019-08-02 Telephone Susan [facility] [id number] Univers 00:00:00 00:00:00 [facility] 350.1.13.10 it y of [place] 4.2.7.2.686 [place] as Professio [id number] [address] Office [address] 2019-08-02 2019-08-02 Telephone GWEN Davis [id number] 00:00:00 00:00:00 [facility] 350.1.13.10 [place] 4.2.7.2.686 Professio [id number] nal 044 [facility] 2019-07-28 2019-07-28 Orders Doctor ALFRED 1.2.840.114 [id number] [facility] 00:00:00 00:00:00 Only Unassigned, MIKHAIL 350.1.13.10 ity of [place] [facility] 4.2.7.2.686 Ramiro as [id number] [facility] paulette 009 [place] 2019-07-28 2019-07-28 Orders Doctor SIMON 1.2.840.114 [id number] 00:00:00 00:00:00 Only Unassigned, MIKHAIL 350.1.13.10 [place] [facility] 4.2.7.2.686 [id number] 009 2019-02-18 2019-02-21 Inpatient SAN[facility]EP HOSK[facility] [id number] [place] 00:00:00 00:00:[address] Results Test Description Test Time Test Comments Results Result Comments Source SURGICAL PATH SPECIMENS 2020-09-11 08:10:00 Test Item Value Reference Range Interpretation Comme nts SURGICAL RUN DATE: PATH 09/11/20 [place] - LAB PAGE 1 RUN TIME: 0810 SPECIMENS Specimen Inquiry RUN USER: INTERFACE (test code = SURG) PATIENT: LACI OQUENDO LOC: MOO U #: [id number] AGE/SX: 25/ F ROOM: RE09/06/20[facility] DR: Rosalva Norris MD : 95 BED: DIS: STATUS: DEP [facility] TLOC: SPEC #: [id number] RECD: STATUS: [facility] RE #: [id number] EDWINA: 09/07/20 [facility] DR: Rosalva Norris MD ENTERED: 09/10/20 SP TYPE: SURG SPEC OTHR DR: DOES_NOT KNOW No Primary or Family PhysicianORDERED: GROSS AND MICRO C ODES: [id number] - TONSIL, NOS COPIES TO: DOES_NOT KNOW No Primary [place] [address] [address] PROCEDURES: GROSS AND MICRO (Incomplete) [...] CONTINUED ON NEXT PAGE RUN DATE: 09/11/20 [place] - LAB PAGE 2 RUN TIME: 809 Specimen Inquiry RUN USER: INTERFACE SPEC #: [id number] PATIENT: LACI OQUENDO #[id number] (Continued) POST-OP DIAGNOSIS Chronic tonsillitis and adenoiditis, chronic otitis media PRE-OP DIAGNOSIS 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 PROTHROMBIN [id number] 14:33:00 Test Item Value Reference Range Interpretation [...] o prevent recurre nt infarct). THROMBOPLASTIN TIME [id number] 14:33:00 Test Item Value Reference Range Interpretation Comments THROMBOPLASTIN TIME 31.5 Seconds 25.0-39.5 N Ther apeutic PARTIAL (test code = Range: 50.4 - 88.3 PTT) Seconds Effective 08/24/2018 CBC W/AUTO [id number] 14:32:00 Test Item Value Reference Range Interpretation [...] REQUIRED (test code NO = MDIFF) PROTHROMBIN [id number] 14:31:00 Test Item Value Reference Range Interpretation [...] o prevent recurrent infar ct). THROMBOPLASTIN TIME [id number] 14:31:00 Test Item Value Reference Range Interpretation Comments THROMBOPLASTIN TIME PARTIAL (test Seconds 25.0-39.5 code = PTT) HCG SERUM [id number] 14:27:00 Test Item Value Reference Range Interpretation Comments HCG SERUM QUAL (test code = SERUM NEGATIVE NEGATIVE HCGQL) CT ABDOMEN PELVIS W [id number] 01:15:53 END OF REPORT Ordering Physician: DAO [...] gallbladder.5. No evidence of appendicitis. RL: 5611 [facility], Radiant Results Inft User - 05/22/2020 7:17 [...] REPORT [facility]. METABOLIC PANEL (07002)2020-05-23 00:26:00 Test Item Value Reference Range Interpretation Comments NA (test code = 139 mmol/L 135-145 5523664097) K (test code = 4.2 mmol/L 3.5-5 0501607721) CL (test code = 104 mmol/L 98-108 2803316544) CO2 TOTAL (test code = 26 mmol/L 23-31 9163892238) AGAP (test code = 2-16 6150193973) BUN (test code = 13 mg/dL 7-23 8658503907) GLUCOSE (test code = 101 mg/dL 70-110 0121062584) CREATININE (test code = 0.56 mg/dL 0.5-1.04 8130526898) TOTAL BILI (test code = 0.6 mg/dL 0.1-1.8 2603669787) CALCIUM (test code = 7.4 mg/dL 8.6-10.6 L 7325537553) T PROTEIN (test code = 8.8 g/dL 6.3-8.2 H 0084804648) ALBUMIN (test code = 4.2 g/dL 3.5-5 3868435136) ALK PHOS (test code = 66 U/L 34-122 0325806503) ALTv (test code = 26 U/L 5-35 1742-6) AST(SGOT) (test code = 34 U/L 13-40 1059483870) eGFR Calculation mL/min/1.73m2 (Non-) (test code = 2065006803) eGFR Calculation mL/min/1.73m2 () (test code = 0218843462) LUDY (test code = LUDY) Association of [...] tests). Lab Interpretation Abnormal (test code = 24187-0) [facility] [id number] 00:26:00 Test Item Value Reference Range Interpretation Comments LIPASE (test code = 4099364115) 107 U/L 0-220 Lab Interpretation (test code = Normal 13437-6) [facility] Center[facility]ysis2021-01-13 00:24:00 Test Item Value Reference Range Interpretation Comments APPEARANCE (test code = Hazy Clear A 3682417828) COLOR (test code = Yellow Yellow 2281700423) PH (test code = 4.8-8.0 3691625250) SP GRAVITY (test code = 1.003-1.030 9941516817) GLU U QUAL (test code = Normal Normal 9462305068) BLOOD (test code = Negative Negative 1338601562) KETONES (test code = Negative Negative 7485541315) PROTEIN (test code = Negative Negative 2887-8) UROBILIN (test code = Normal Normal 8306615802) BILIRUBIN (test code = Negative Negative 9694762388) NITRITE (test code = Negative Negative 2258378672) LEUK MARCIN (test code = Negative Negative 5360249811) RBC/HPF (test code = <1 See_Comment [Autom ated message] 0122826666) The system [employer] generated this result transmitted ref erence range: 0 - 3 HP F. The reference range was not used to int erpret this result as normal/abnormal . WBC/HPF (test code = See_Comment [Autom ated message] 5483906625) The system [employer] generated this result transmitted ref erence range: 0 - 5 HP F. The reference range was not used to int erpret this result as normal/abnormal . BACTERIA (test code = Negative Negative 2354650030) MUCOUS (test code = Slight Negative LPF A 0567294855) SQ EPITH (test code = HPF 7888859338) Lab Interpretation (test Abnormal code = 43651-9) [facility] with [id number] 00:12:00 Test Item Value Reference Range Interpretation Comments WBC (test code = See_Comment [Automated message] 6690-2) The system [employer] generated this result transmitted ref erence range: 4.30 - 1 1.10 10*3/?L. The re ference range was not u sed to interpret this result as normal/abnor mal. RBC (test code = See_Comment [Automated message] 789-8) The system [employer] generated this result transmitted ref erence range: [...] RDW-SD (test code 40.4 fL 39-49.9 = 82861-8) RDW-CV (test code 13.0 % 12-15.5 = 788-0) PLT (test code = See_Comment [Automated message] 777-3) The system [employer] generated this result transmitted ref erence range: 166 - 35 8 10*3/?L. The re ference range was not u sed to interpret this result as normal/abnor mal. MPV (test code = 10.6 fL 9.5-12.9 83217-8) NRBC/100 WBC (test See_Comment [Automat ed message] code = 0720157185) The syste m which generated this result transmitted ref erence range: 0.0 - 10 .0 /100 WBCs. The refer ence range was not u sed to interpret this result as normal/abnor mal. NRBC x10^3 (test <0.01 See_Comment [Automated message] code = 8834859229) The syste m which generated this result transmitted ref erence range: 10*3/?L. The reference range was not used to interpr et this result as normal/abnormal . GRAN MAT (NEUT) % 57.7 % (test code = 770-8) IMM GRAN % (test 0.40 % code = 0538200907) LYMPH % (test code 32.1 % = 736-9) MONO % (test code 7.4 % = 5905-5) EOS % (test code = 2.1 % 713-8) BASO % (test code 0.3 % = 706-2) GRAN MAT 4.61 10*3/uL 1.88-7.09 x10^3(ANC) (test code = 1252391081) IMM GRAN x10^3 0.03 10*3/uL 0-0.06 (test code = 4125798024) LYMPH x10^3 (test 2.56 10*3/uL 1.32-3.29 code = 731-0) MONO x10^3 (test 0.59 10*3/uL 0.33-0.92 code = 742-7) EOS x10^3 (test 0.17 10*3/uL 0.03-0.39 code = 711-2) BASO x10^3 (test <0.03 0.01-0.07 code = 704-7) [facility] [id number] 00:09:00 Test Item Value Reference Range Interpretation Comments POCT PREG (test code = 1605) negative On board controls acceptable with present C Line (test code = 3574) POCT PREG LOT # (test code = 3575) [id number] POCT PREG TEST DATE (test 01/08/2022 code = 3576) Lab Interpretation (test code = Normal 01112-1) [facility]
[2021-10-06 09:33] LABS: Urine Blood Negative (Negative); Urine Glucose Negative (Negative); Urine Protein Negative (Negative); Urine Specific Gravity 1.025 (1.005-1.030); Urine pH 5.5 (5.0-7.0)
[2021-10-06 09:46] LABS: Absolute Lymphocytes (CBC) 1.6 K/uL (0.7-4.9); Hematocrit 40.3 % (36.0-45.0); Lymphocytes % 22.8 % (15.3-44.8); MPV 8.7 fL (7.6-11.3); Protime INR 1.09; RBC Red Blood Cell Count 4.73 M/uL (3.86-4.86)
--- NOTE | 2021-10-06 09:50 | RAD REPORT ---
EXAM DESCRIPTION: CT - Head Brain Wo Cont - 10/06/2021 9:44 am CLINICAL HISTORY: Headache, new or worsening, neuro deficit COMPARISON: Head Brain Wo Cont dated 10/01/2021; Head Brain Wo Cont dated 08/28/2020 TECHNIQUE: All CT scans are performed using dose optimization technique as appropriate and may inclu de automated exposure control or mA/KV adjustment according to patient size. FINDINGS: No intracranial hemorrhage, hydrocephalus or extra-axial fluid collection.No areas of brai n edema or evidence of midline shift. The paranasal sinuses and mastoids are clear. The calvarium is intact. IMPRESSION: No acute intracranial abnormality.
[2021-10-06 09:52] LABS: Urine Bacteria <20 /HPF (<20); Urine RBC <5 /HPF (NONE SEEN)
[2021-10-06 09:53] LABS: Urine Amorphous Sediment 1+ /HPF (NONE SEEN)
[2021-10-06 09:54] LABS: Albumin 3.2 g/dL (3.4-5.0); Bilirubin Direct 0.2 mg/dL (0-0.2); Bilirubin Total 0.4 mg/dL (0.2-1.0); Magnesium 1.8 mg/dL (1.8-2.4); Potassium 3.7 mmol/L (3.5-5.1); Protein, Total 8.3 g/dL (6.4-8.2)
[2021-10-06] MEDS ORDERED: METOCLOPRAMIDE 10 MG/2mL INJ ONE (09:57)
[2021-10-06] MEDS ORDERED: ONDANSETRON 4 MG/2 ML VIAL ONE (09:58)
[2021-10-06] MEDS ORDERED: ACETAMINOPHEN 500 MG TAB ONE (09:58)
[2021-10-06] MEDS ORDERED: NA CHLORIDE 0.9% 1,000 ML ONE (09:58)
[2021-10-06] MEDS ORDERED: DIPHENHYDRAMINE 50 MG/ML VIAL ONE (09:58)
--- NOTE | 2021-10-06 10:34 | ER ---
Nurse's Notes [facility] Name: Letty Hall Age: 26 yrs Sex: Female : 1995 Arrival Date: 10/06/2021 Time: 08:36 Bed 18 Private MD: Diagnosis: Headache;Nausea with vomiting, unspecified Presentation: 10/06 08:42 Chief complaint: Patient states: was hospitalized last week for fluid on the brain, had iw spinal tap on Thursday was feeling better, this morning she was stiff and couldn't move and vomited. Coronavirus screen: At this time, the client does not indicate any symptoms associated with coronavirus-19. Ebola Screen: Patient negative for fever greater than or equal to 101.5 degrees Fahrenheit, and additional compatible Ebola Virus Disease symptoms Patient denies exposure to infectious person. Patient denies travel to an Ebola-affected area in the 21 days before illness onset. No symptoms or risks identified at this time. Initial Sepsis Screen: Does the patient meet any 2 criteria? No. Patient's initial sepsis screen is negative. Does the patient have a suspected source of infection? No. Patient's initial sepsis screen is negative. Risk Assessment: Do you want to hurt yourself or someone else? Patient reports no desire to harm self or others. Onset of symptoms was October 06, 2021. 08:42 Method Of Arrival: Ambulatory iw 08:42 Acuity: BHAKTI 2 iw Triage Assessment: 08:53 General: Appears in no apparent distress. Behavior is calm, cooperative. GI: Reports jh6 nausea. PRESIDENTIAL SUPPORT SPECIALIST: 08:43 LMP 08/24/2021 iw Historical: - Allergies: 08:43 Haldol; iw 08:43 VANCOMYCIN AND DERIVATIVES; iw - PMHx: 08:43 Anxiety; Depression; GERD; hypocalcemia; hypoparathyroidism; psuedo cranial iw hypertension; Sinus Tachycardia; - PSHx: 08:43 Cholecystectomy; Tonsillectomy; iw - Immunization history:: Client reports having NOT received the Covid vaccine. - Social history:: Smoking status: Patient reports the use of cigarette tobacco products. Screenin:53 Abuse screen: Denies threats or abuse. Nutritional screening: No deficits noted. jh6 Tuberculosis screening: No symptoms or risk factors identified. Fall Risk None identified. Assessment: 08:51 Pain: Complains of pain in neck Pain currently is 6 out of 10 on a pain scale. Quality jh6 of pain is described as tender, Pain began 1 day ago. Is continuous, Aggravated by repositioning. GI: No deficits noted. Abdomen is round obese, Bowel sounds present X 4 quads. Abd is soft. 11:10 Reassessment: Patient and/or family updated on plan of care and expected duration. Pain jh6 level reassessed. Patient is alert, oriented x 3, equal unlabored respirations, skin warm/dry/pink. Patient states feeling better. Patient states symptoms have improved. Pain: Pain currently is 3 out of 10 on a pain scale. Vital Signs: 08:42 BP 135 / 94; Pulse 95; Resp 16; Temp 98.1; Pulse Ox 100% on R/A; Weight 118.84 kg; iw Height 5 ft. 5 in. (165.10 cm); 10:30 BP 108 / 56; Pulse 80; Resp 17; Pulse Ox 100% ; Pain 3/10; jh6 08:42 Body Mass Index 43.60 (118.84 kg, 165.10 cm) iw ED Course: 08:36 Patient arrived in ED. am2 08:39 Zi Oconnor PA is PHCP. cp 08:39 Danyel Up MD is Attending Physician. cp 08:43 Triage completed. iw 08:50 Danielle Pantoja, NYA is Primary Nurse. jh6 08:53 Bed in low position. Call light in reach. Side rails up X 1. jh6 09:31 EKG done, by ED staff. tm3 09:[address] jh6 09:46 CT Head Brain wo Cont: headache, recent lumbar puncture In Process Unspecified. EDMS 11:11 IV discontinued, intact, bleeding controlled, No redness/swelling at site. Pressure jh6 dressing applied. Administered Medications: 10:00 Drug: Benadryl (diphenhydrAMINE) 25 mg Route: IVP; Site: right hand; jh6 10:00 Drug: Zofran (Ondansetron) 4 mg Route: IVP; Site: right hand; jh6 10:01 Drug: Tylenol 1000 mg Route: PO; jh6 10:01 Drug: NS 0.9% 1000 ml Route: IV; Rate: 1 bolus; Site: right hand; jh6 10:01 Drug: Reglan (metoCLOPramide) 10 mg Route: IVP; Site: right hand; [facility] Outcome: 10:33 Discharge ordered by . martha 11:10 Discharged to home ambulatory. [facility] 11:10 Condition: good 11:10 Discharge instructions given to patient, family, Instructed on discharge instructions, Demonstrated understanding of instructions, follow-up care, medications, Prescriptions given X 2. 11:11 Patient left the ED. 6 Signatures: Dispatcher [employer] EDMS Laron Brand 3 Lacey Carey, RN RN iw Zi Oconnor, Karla Gallegos cp, am2 Danielle Pantoja RN RN 6
--- NOTE | 2021-10-06 10:34 | EDPHYS ---
Physician Documentation [facility] Name: Letty Hall Age: 26 yrs Sex: Female : 1995 Arrival Date: 10/06/2021 Time: 08:36 Bed 18 Private MD: ED Physician Danyel Up HPI: 10/06 09:00 This 26 yrs old Female presents to ER via Ambulatory with complaints of Stiff Neck, cp Nausea/Vomiting. 09:00 The patient complains of pain to the top of head and forehead. The patient describes cp the headache as aching. 09:00 Onset: The symptoms/episode began/occurred this morning. Associated signs and symptoms: cp Pertinent positives: nausea, neck stiffness, vomiting, Pertinent negatives: altered mental status, dizziness, fever, sinus congestion, sinus tenderness, vision changes, weakness. 09:00 Severity of symptoms: in the emergency department the pain a " 6" out of "10". cp 09:00 Headache History: The patient has had previous headaches and this one is less severe cp than previous episodes. The patient has been recently been admitted at [facility], discharged 2 days ago after being admitted for pseudotumor cerebri and having spinal tap performed. 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 - Social history:: Smoking status: Patient reports the use of cigarette tobacco products. ROS: 09:05 Constitutional: Negative for body aches, chills, fever, poor PO intake. cp 09:05 Eyes: Negative for injury, pain, redness, and discharge. cp 09:05 ENT: Negative for drainage from ear(s), ear pain, sore throat, difficulty swallowing, difficulty handling secretions. 09:05 Neck: Positive for stiffness, Negative for injury or acute deformity. 09:05 Cardiovascular: Negative for chest pain, palpitations. 09:05 Respiratory: Negative for cough, shortness of breath, wheezing. 09:05 Abdomen/GI: Positive for nausea and vomiting, Negative for abdominal pain, diarrhea, constipation, bowel incontinence. 09:05 Back: Positive for pain at rest, pain with movement, of the lumbar area. 09:05 : Negative for urinary symptoms, difficulty urinating, bladder incontinence. 09:05 Neuro: Positive for headache, Negative for altered mental status, numbness, weakness. 09:05 All other systems are negative. Exam: 09:10 Constitutional: The patient appears in no acute distress, alert, awake, cp non-diaphoretic, non-toxic, well developed, well nourished, obese, uncomfortable. 09:10 Head/Face: Normocephalic, atraumatic. cp 09:10 Eyes: Periorbital structures: appear normal, Pupils: equal, round, and reactive to light and accomodation, Extraocular movements: intact throughout, Conjunctiva: normal, no exudate, no injection, Sclera: no appreciated abnormality, Lids and lashes: appear normal, bilaterally. 09:10 ENT: External ear(s): are unremarkable, Ear canal(s): are normal, clear, TM's: dullness, bilaterally, Nose: is normal, Mouth: Lips: moist, Oral mucosa: pink and intact, moist, Posterior pharynx: Airway: no evidence of obstruction, patent. 09:10 Neck: ROM/movement: Meningeal signs: are not present, nuchal rigidity, is not appreciated. 09:10 Chest/axilla: Inspection: normal. 09:10 Cardiovascular: Rate: normal, Rhythm: regular, Edema: is not appreciated, JVD: is not appreciated. 09:10 Respiratory: the patient does not display signs of respiratory distress, Respirations: normal, no use of accessory muscles, no retractions, labored breathing, is not present, Breath sounds: are clear throughout, no decreased breath sounds, no stridor, no wheezing. 09:10 Abdomen/GI: Inspection: abdomen appears normal, Palpation: abdomen is soft and non-tender, in all quadrants. 09:10 Back: pain, that is moderate, of the lumbar area, ROM is normal. 09:10 Skin: cellulitis, is not appreciated, no rash present. 09:10 Neuro: Orientation: to person, place \\T\\ time. Mentation: is normal, Cerebellar function: is grossly normal, Motor: moves all fours, strength is normal, Sensation: is normal, Gait: is steady, at a normal pace, without difficulty. Vital Signs: 08:42 BP 135 / 94; Pulse 95; Resp 16; Temp 98.1; Pulse Ox 100% on R/A; Weight 118.84 kg; iw Height 5 ft. 5 in. (165.10 cm); 10:30 BP 108 / 56; Pulse 80; Resp 17; Pulse Ox 100% ; Pain 3/10; jh6 08:42 Body Mass Index 43.60 (118.84 kg, 165.10 cm) iw MDM: 08:46 Patient medically screened. cp 10:30 Data reviewed: vital signs, nurses notes, lab test result(s), radiologic studies, CT cp scan. 10:30 Counseling: I had a detailed discussion with the patient and/or guardian regarding: the cp historical points, exam findings, and any diagnostic results supporting the discharge/admit diagnosis, lab results, radiology results, to return to the emergency department if symptoms worsen or persist or if there are any questions or concerns that arise at home. Response to treatment: the patient's symptoms have markedly improved after treatment, VSS. Patient reports headache pain improved to 3 on 1-10 scale and requesting discharge to home. Declines to continue IV fluids. Patient remains neurologically intact, headache improved and did not worsen with position changes. Will discharge to home for continued monitoring. 10/06 08:59 Order name: Basic Metabolic Panel; Complete Time: 10:19 cp 10/06 10:19 Interpretation: Normal except: NA 135; ANION GAP 6.7; GLUC 108; CA 7.1. cp 10/06 08:59 Order name: CBC with Diff; Complete Time: 10:19 cp 10/06 08:59 Order name: LFT's; Complete Time: 10:19 cp 10/06 10:20 Interpretation: Normal except: AST 36; ALT 287; ALK 143; TP 8.3; ALB 3.2; GLOB 5.1; A/G cp 0.6. 10/06 08:59 Order name: Magnesium; Complete Time: 10:19 cp 10/06 08:59 Order name: PT-INR; Complete Time: 09:52 cp 10/06 08:59 Order name: Urine Microscopic Only; Complete Time: 10:19 cp 10/06 10:20 Interpretation: Normal except: SQEPI 20-50. 10/06 08:59 Order name: EKG; Complete Time: 08:59 10/06 09:18 Order name: CT Head Brain wo Cont: headache, recent lumbar puncture; Complete Time: 09:52 10/06 09:52 Interpretation: Report reviewed. 10/06 09:33 Order name: Urine Dipstick-Ancillary; Complete Time: 09:52 EDMS 10/06 08:59 Order name: Cardiac monitoring; Complete Time: 10:02 10/06 08:59 Order name: EKG - Nurse/Tech; Complete Time: 10:02 10/06 08:59 Order name: IV Saline Lock; Complete Time: 10:02 10/06 08:59 Order name: Labs collected and sent; Complete Time: 10:02 10/06 08:59 Order name: O2 Per Protocol; Complete Time: 10:02 10/06 08:59 Order name: O2 Sat Monitoring; Complete Time: 10:02 10/06 08:59 Order name: Urine Dipstick-Ancillary (obtain specimen); Complete Time: 10:01 10/06 08:59 Order name: Urine Test (obtain specimen); Complete Time: 10: 10/06 10:28 Order name: PO challenge cp Administered Medications: 10:00 Drug: Benadryl (diphenhydrAMINE) 25 mg Route: IVP; Site: right hand; 6 10:00 Drug: Zofran (Ondansetron) 4 mg Route: IVP; Site: right hand; 6 10:01 Drug: Tylenol 1000 mg Route: PO; 6 10:01 Drug: NS 0.9% 1000 ml Route: IV; Rate: 1 bolus; Site: right hand; 6 10:01 Drug: Reglan (metoCLOPramide) 10 mg Route: IVP; Site: right hand; [facility] Disposition: 11:12 Co-signature as Attending Physician, Danyel Up MD I agree with the assessment and kdr plan of care. Disposition Summary: 10/06/21 10:33 Discharge Ordered Location: Home cp Problem: an acute exacerbation cp Symptoms: have improved cp Condition: Stable cp Diagnosis - Headache cp - Nausea with vomiting, unspecified cp Followup: cp - With: Private Physician - When: 1 - 2 days - Reason: Recheck today's complaints Discharge Instructions: - Discharge Summary Sheet cp - General Headache Without Cause cp - Nausea and Vomiting, Adult cp Forms: - Medication Reconciliation Form cp - Thank You Letter cp - Antibiotic Education cp - Prescription Opioid Use cp - Work release form eb Prescriptions: - Fioricet 50-300-40 mg Oral capsule - take 1 capsule by ORAL route every 4 hours as needed; 20 capsule; Refills: 0, cp Product Selection Permitted - Zofran 4 mg Oral Tablet - take 1 tablet by ORAL route every 12 hours As needed; 20 tablet; Refills: 0, cp Product Selection Permitted Signatures: Dispatcher [employer] EDMS Danyel Up MD MD kdr Lacey Carey RN RN iw Zi Oconnor PA PA Danielle Grier RN RN jh6 Corrections: (The following items were deleted from the chart) 10:19 10:19 Normal except: NA 135; ANION GAP 6.7; GLUC 108. cp cp
[2021-10-06 11:15] VITALS: TEMP 98.1; O2SAT 100
[2021-10-06 11:16] VITALS: BP 108/56
--- NOTE | 2021-10-09 07:56 | EKG ---
Test Date: 2021-10-06 Test Time: 09:26:06 Program Officer: LILLIAM MEASUREMENT RESULTS: Intervals: Rate: 66 ID: [id number] QRSD: 84 QT: 406 QTc: 425 [place]: P: 37 ID: [id number] QRS: 61 T: 39 INTERPRETIVE STATEMENTS: Sinus rhythm with marked sinus arrhythmia Otherwise normal ECG Compared to ECG 09/07/2020 15:37:16 T-wave abnormality no longer present Electronically Signed On 10-09-21 07:50:54 CDT by Thor Burrell
== END 2021-10-06 11:11 | disposition home or self-care (01) ==
LOC: ER 08:33
DX: R51.9 Headache, unspecified (principal); R11.2 Nausea with vomiting, unspecified; F41.8 Other specified anxiety disorders; K21.9 Gastro-esophageal reflux disease without esophagitis; E03.9 Hypothyroidism, unspecified; E83.51 Hypocalcemia; I10 Essential (primary) hypertension; R00.0 Tachycardia, unspecified; F17.210 Nicotine dependence, cigarettes, uncomplicated
CPT/HCPCS: 36415; 70450; 80048; 80076; 81003; 81015; 83735; 85025; 85610; 93005; 96374; 96375; 99284; J1200; J2405; J2765; J7030

== ENCOUNTER 2021-10-06 21:23 | Emergency (ER) | payer SELFPAY ==
[2021-10-06] MEDS ORDERED: PROMETHAZINE INJ 25 MG/ML AMP ONE ×2 (22:33→22:34)
[2021-10-06] MEDS ORDERED: NA CHLORIDE 0.9% 1,000 ML ONE (22:34)
[2021-10-06] MEDS ORDERED: dexAMETHasone 10 MG/ML VIAL ONE (22:34)
--- NOTE | 2021-10-06 23:48 | ER ---
Nurse's Notes [facility] Name: Letty Hall Age: 26 yrs Sex: Female : 1995 Arrival Date: 10/06/2021 Time: 21:25 Bed 16 Private MD: Diagnosis: Other reaction to spinal and lumbar puncture-Headache Presentation: 10/06 21:32 Chief complaint: Patient states: "I came this morning but I left because the doctor was ld1 a quack." Pt says that she is having spinal leakage and is having a massive headache. N/V, stiff neck, sinus pain. Coronavirus screen: At this time, the client does not indicate any symptoms associated with coronavirus-19. Ebola Screen: No symptoms or risks identified at this time. Initial Sepsis Screen: Does the patient meet any 2 criteria? No. Patient's initial sepsis screen is negative. Does the patient have a suspected source of infection? No. Patient's initial sepsis screen is negative. Risk Assessment: Do you want to hurt yourself or someone else? Patient reports no desire to harm self or others. Onset of symptoms was October 06, 2021. 21:32 Method Of Arrival: Ambulatory ld1 21:32 Acuity: BHAKTI 3 ld1 Triage Assessment: 21:33 Headache History: The patient has had previous headaches and this one is similar to ld1 previous episodes. General: Appears in no apparent distress. comfortable, Behavior is cooperative, appropriate for age, anxious. Pain: Complains of pain in face and scalp Pain does not radiate. Pain currently is 10 out of 10 on a pain scale. Quality of pain is described as throbbing, Pain began gradually, Is continuous. EENT: No signs and/or symptoms were reported regarding the EENT system. Neuro: Level of Consciousness is awake, alert, obeys commands, Oriented to person, place, time, situation. Cardiovascular: Capillary refill < 3 seconds Patient's skin is warm and dry. Respiratory: Airway is patent Respiratory effort is even, unlabored. GI: Abdomen is round non-distended. : No signs and/or symptoms were reported regarding the genitourinary system. Derm: No signs and/or symptoms reported regarding the dermatologic system. Musculoskeletal: No signs and/or symptoms reported regarding the musculoskeletal system. 10/07 00:10 Pain: Also complains of no other associated symptoms. 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 - Social history:: Smoking status: Patient reports the use of cigarette tobacco products, smokes one-half pack cigarettes per day, Patient/guardian denies using alcohol. - Family history:: not pertinent. - Hospitalizations: : The patient was recently seen at [facility]. Screenin:41 Abuse screen: Denies threats or abuse. Nutritional screening: No deficits noted. lc1 Tuberculosis screening: No symptoms or risk factors identified. Fall Risk None identified. Assessment: 22:36 General: Appears in no apparent distress. obese, well groomed, Behavior is calm, lc1 cooperative. Pain: Complains of pain in scalp and face Pain does not radiate. Pain currently is 10 out of 10 on a pain scale. Neuro: No deficits noted. Neuro: Reports photophobia since since she had her LP done Thursday. Cardiovascular: No deficits noted. Respiratory: Airway is patent Trachea midline Respiratory effort is even, unlabored, Respiratory pattern is regular. GI: No signs and/or symptoms were reported involving the gastrointestinal system. GI: Reports nausea, vomiting. : No signs and/or symptoms were reported regarding the genitourinary system. EENT: No signs and/or symptoms were reported regarding the EENT system. Derm: No deficits noted. Musculoskeletal: No deficits noted. 23:30 Reassessment: No changes from previously documented assessment. Patient and/or family lc1 updated on plan of care and expected duration. Pain level reassessed. Patient is alert, oriented x 3, equal unlabored respirations, skin warm/dry/pink. Patient states feeling better. Vital Signs: 21:32 BP 136 / 79; Pulse 94; Resp 18; Temp 98.3(TE); Pulse Ox 98% on R/A; Weight 119.29 kg; ld1 Height 5 ft. 5 in. (165.10 cm); Pain 10/10; 22:41 BP 94 / 52; Pulse 90; Resp 20; Pulse Ox 98% on R/A; lc1 23:30 BP 107 / 78; Pulse 69; Resp 18; Pulse Ox 100% on R/A; lc1 21:32 Body Mass Index 43.77 (119.29 kg, 165.10 cm) ld1 [place] Coma Score: 23:39 Eye Response: spontaneous(4). Verbal Response: oriented(5). Motor Response: obeys rn commands(6). Total: 15. ED Course: 21:25 Patient arrived in ED. jj6 21:33 Triage completed. ld1 21:33 Arm band placed on right wrist. ld1 21:46 Chase Valera MD is Attending Physician. rn 22:16 Nisa Burdick is Primary Nurse. lc1 22:41 Patient has correct armband on for positive identification. Bed in low position. Side lc1 rails up X2. 22:41 No provider procedures requiring assistance completed. Inserted saline lock: 22 gauge lc1 in right wrist, using aseptic technique. 10/07 00:10 IV discontinued, intact, bleeding controlled, Pressure dressing applied. lc1 Administered Medications: 10/06 22:35 Drug: NS 0.9% 1000 ml Route: IV; Rate: 1000 ml; Site: right wrist; [facility] 10/07 00:05 Follow up: IV Status: Completed infusion 1 00:09 Follow up: IV Status: Completed infusion 1 00:09 Follow up: Response: No adverse reaction [facility] 10/06 22:35 Drug: Phenergan (promethazine) 12.5 mg Route: IVP; Site: right wrist; [facility] 10/07 00:09 Follow up: Response: No adverse reaction [facility] 10/06 22:36 Drug: Decadron - Dexamethasone 10 mg Route: IVP; Site: right wrist; [facility] 10/07 00:09 Follow up: Response: No adverse reaction [facility] Medication: 10/06 22:41 VIS not applicable for this client. 1 Outcome: 23:47 Discharge ordered by . rn 10/07 00:10 Discharged to home ambulatory, with family. lc1 Condition: good Discharge instructions given to patient, Instructed on discharge instructions, Demonstrated understanding of instructions. 00:10 Patient left the ED. 1 Signatures: Chase Valera MD MD rn Calhoun, Lisa lc1 Navya Brunner RN RN ld1 Danielle Lerma jj6
--- NOTE | 2021-10-06 23:48 | EDPHYS ---
Physician Documentation [facility] Name: Letty Hall Age: 26 yrs Sex: Female : 1995 Arrival Date: 10/06/2021 Time: 21:25 Bed 16 Private MD: ED Physician Chase Valera HPI: 10/06 23:39 This 26 yrs old Female presents to ER via Ambulatory with complaints of Headache, rn Nausea/Vomiting. 23:39 The patient complains of pain to the all over. The patient describes the headache as rn aching, throbbing. 23:39 Onset: The symptoms/episode began/occurred 3 day(s) ago. Associated signs and symptoms: rn Pertinent positives: nausea, vomiting, Pertinent negatives: fever, neck stiffness, rash, vision loss. Severity of symptoms: At its worst the pain was moderate, in the emergency department the pain is unchanged. Headache History: The patient has had previous headaches and this one is similar to previous episodes. The symptoms are alleviated by Darkened room, remaining still, the symptoms are aggravated by lights. The patient has experienced similar episodes in the past. The patient has not recently seen a physician. Pt reports headache, nausea/vomiting, for 2-3 days, following large volume LP for pseudotumor cerebri. No fever. No trauma. Reports better with darkness and quiet room. . 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 - Social history:: Smoking status: Patient reports the use of cigarette tobacco products, smokes one-half pack cigarettes per day, Patient/guardian denies using alcohol. - Family history:: not pertinent. - Hospitalizations: : The patient was recently seen at [facility]. ROS: 23:39 Constitutional: Negative for fever, chills, and weight loss, Eyes: Negative for injury, rn pain, redness, and discharge, Neck: Negative for injury, pain, and swelling, Cardiovascular: Negative for chest pain, palpitations, and edema, Respiratory: Negative for shortness of breath, cough, wheezing, and pleuritic chest pain, Abdomen/GI: + nausea/vomiting, neg for abd pain Back: Negative for injury and pain, MS/Extremity: Negative for injury and deformity, Skin: Negative for injury, rash, and discoloration, Neuro: Negative for weakness, numbness, tingling, and seizure. Exam: 23:39 Constitutional: This is a well developed, well nourished patient who is awake, alert, rn and in no acute distress. Laying down. Head/Face: Normocephalic, atraumatic. Eyes: Pupils equal round and reactive to light, extra-ocular motions intact. Periorbital areas with no swelling, redness, or edema. Cardiovascular: Regular rate and rhythm . No pulse deficits. Respiratory: Speaking full sentences, unlabored. Back: 3 bruises at site of LP, no leakage of fluid, no swelling or mass Neuro: Awake and alert, GCS 15, oriented to person, place, time, and situation. Cranial nerves II-XII grossly intact. Motor strength 5/5 in all extremities. Sensory grossly intact. Cerebellar exam normal. Vital Signs: 21:32 BP 136 / 79; Pulse 94; Resp 18; Temp 98.3(TE); Pulse Ox 98% on R/A; Weight 119.29 kg; ld1 Height 5 ft. 5 in. (165.10 cm); Pain 10/10; 22:41 BP 94 / 52; Pulse 90; Resp 20; Pulse Ox 98% on R/A; lc1 23:30 BP 107 / 78; Pulse 69; Resp 18; Pulse Ox 100% on R/A; lc1 21:32 Body Mass Index 43.77 (119.29 kg, 165.10 cm) ld1 [place] Coma Score: 23:39 Eye Response: spontaneous(4). Verbal Response: oriented(5). Motor Response: obeys rn commands(6). Total: 15. MDM: 21:46 Patient medically screened. rn 23:39 Differential diagnosis: vasomotor headache, post-lp headache, pseudotumor cerebri. Data rn reviewed: vital signs, nurses notes, and as a result, I will discharge patient. Counseling: I had a detailed discussion with the patient and/or guardian regarding: the historical points, exam findings, and any diagnostic results supporting the discharge/admit diagnosis, the need for outpatient follow up, to return to the emergency department if symptoms worsen or persist or if there are any questions or concerns that arise at home. Response to treatment: the patient's symptoms have markedly improved after treatment, sleeping comfortably. Special discussion: I discussed with the patient/guardian in detail that at this point there is no indication for admission to the hospital. It is understood, however, that if the symptoms persist or worsen the patient needs to return immediately for re-evaluation. Based on the history and exam findings, there is no indication for further emergent testing or inpatient evaluation. I discussed with the patient/guardian the need to see the neurologist for further evaluation of the symptoms. I discussed with the patient/guardian the need to see the primary care provider for further evaluation of the symptoms. ED course: Pt makedly improved, sleeping comfortably, states feels much better. Will dc home. Had long explanation with her and regarding blood patch, unavailability of anesthesia at this time for blood patch, is holiday weekend, and she required sedation for LP. We went route of medication and seems to have worked. Return precautions given and understood. . 10/06 22:08 Order name: IV Start; Complete Time: 22:36 rn Administered Medications: 22:35 Drug: NS 0.9% 1000 ml Route: IV; Rate: 1000 ml; Site: right wrist; [facility] 10/07 00:05 Follow up: IV Status: Completed infusion 1 00:09 Follow up: IV Status: Completed infusion 1 00:09 Follow up: Response: No adverse reaction [facility] 10/06 22:35 Drug: Phenergan (promethazine) 12.5 mg Route: IVP; Site: right wrist; [facility] 10/07 00:09 Follow up: Response: No adverse reaction [facility] 10/06 22:36 Drug: Decadron - Dexamethasone 10 mg Route: IVP; Site: right wrist; [facility] 10/07 00:09 Follow up: Response: No adverse reaction [facility] Disposition Summary: 10/06/21 23:47 Discharge Ordered Location: Home rn Problem: new rn Symptoms: have improved rn Condition: Stable rn Diagnosis - Other reaction to spinal and lumbar puncture - Headache rn Followup: rn - With: Private Physician - When: As needed - Reason: Recheck today's complaints, Re-evaluation by your physician Discharge Instructions: - Discharge Summary Sheet rn - Spinal Headache rn Forms: - Medication Reconciliation Form rn - Thank You Letter rn Signatures: Chase Valera MD MD rn Calhoun, Lisa 1 Navya Brunner RN RN ld1
[2021-10-07 00:58] VITALS: TEMP 98.3
[2021-10-07 01:00] VITALS: BP 107/78; O2SAT 100
--- OUTSIDE RECORDS SUMMARY | 2021-10-07 04:38 | XMS REPORT | Continuity of Care Document ---
:1995 Author Organization [facility] t Address [address] [place] [address] Care Team Providers Name Role Phone Juanito Norris Attending Clinician Unavailable PENNIE_Delvin Attending Clinician Unavailable Hyacinth Brown Attending Clinician [phone] Eliza Hines Attending Clinician Doctor Unassigned, Name Attending Clinician Unavailable Dotty_Kenia Attending Clinician Unavailable Susan CARDOSO Attending Clinician AIDEE Attending Clinician Unavailable KELLY Admitting Clinician Unavailable Dotty_Pappas Admitting Clinician Unavailable DANNIELLE Admitting Clinician Unavailable Payers Payer Name Policy Type Policy Number Effective Date Expiration Date S jeremy [place] - [id number] [facility] 3 (O) [place] WOMEN'S [id number] HEALTH PROGRAM (MEDICAID) Problems Condition Condition Condition [...] Type Date Date Clinician haloperi DA Active AL [facility] dol 4-27 Clear 00:00: Bowen 00 [facility] vancomyc DA Active AL [facility] in 4-27 Clear 00:00: Bowen 00 [facility] haloperi DA Active AL MASTOIDITIS [facility] dol 4-27 Clear 00:00: Bowen [facility] vancomyc DA Active AL MASTOIDITIS [facility] in 4-27 Clear 00:00: Bow[place] 00 [facility] Haloperi Propensi Active Anaphylaxis U [...] leonarda IN INGREDI 12-05 ity of 00:00: [place] 00 Medical Branch Social History Social Habit Start Date Stop Date Quantity Comments Source Sex Assigned At Universit y of [facility] Exposure to Yes University of SARS-CoV-2 (event) [facility] History of tobacco Cigarette Smoker University of use [facility] Alcohol Comment occasional [facility] y [facility] Tobacco use and 2020-05-22 2020-05-22 Current user Univers ity of exposure 00:00:00 00:00:00 [facility] Cigarettes smoked 2020-05-22 2020-05-22 Univers ity of current (pack per 00:00:00 00:00:00 [facility] ) - Reported Branch Alcohol intake 2020-05-22 2020-05-22 Current drinker Unive rsity of 00:00:00 00:00:00 of alcohol [facility] (finding) [place] Smoking Status Start Date Stop Date Source Current every day smoker 2020-05-22 00:00:00 Uni versity of [facility] Medications Ordered Filled Start Stop Current Ordering Indication Dosage Frequency Signature Comments Components Source Medication Medication Date Date Medication? Clinician (SIG) Name Name HYDROcodone 2020- No 1{tbl} 1 tablet, Univers -acetaminop 05-23 Oral, ity of hen (NORCO 02:30: 01:27 ONCE, 1 [place] 5) 5-325 mg 00 :00 dose, Tue Med ical tablet 1 05/22/20 at [facility] h tablet 2030, LAMIN iohexol 2020- No 120mL 120 mL, Unive rs (OMNIPAQUE 05-23 Intravenou it y of 350 01:00: 00:38 s, ONCE, 1 [place] BULK-100 00 :00 dose, Tue Medica l mL) 05/22/20 at Branch injection 1900, 120 mL Routine NaCl 0.9% 2020- No 1000mL at 999 Uni vers (NS) bolus 1-12 01-13 mL/hr, ity of infusion 23:30: 01:55 1,000 mL, [place]ami[place] as 1,000 mL 00 :00 IV Medical Infusion, Branch ONCE, 1 dose, 05/22/20 at 1730, LAMIN dicyclomine Yes [id number] 10mg Take 1 Univers (BENTYL) 10 1-12 capsule by it y of mg capsule 00:00: mouth [place] (four) Medical times Branch daily as needed for Abdominal pain. ondansetron Yes [id number] 4mg Take 1 Univers 4 mg 1-12 [...] to 7 days. Indication s: acute [facility] Yes Take by Un leonarda ORAL 0-03 mouth. ity of 20:28: [address]-05 Yes Take by Un leonarda ORAL 0-03 mouth. ity of 20:28: [address] 2017-05 Yes Take by Un leonarda ORAL 0-03 mouth. ity of 20:28: [address] GUAIFENESIN 2017-05 Yes Take by Un leonarda ORAL 0-03 mouth. ity of 20:28: [address] CALCIUM 2017-05 Yes 2500mg Take 2,500 [...] mouth ity of 20 mg 00:59: daily. [place] [address] Medical Branch vortioxetin 2017-0 Yes Take by Un leonarda e 10 mg Tab 6-08 mouth ity of 00:59: daily. [place] [address] Medical Branch topiramate 2017-0 Yes 25mg Take 25 mg U nivers (TOPAMAX) 6-08 by mouth ity of 25 mg 00:59: daily. [place] [address] Medical Branch magnesium 2017-0 Yes 400mg Take [...] mouth ity of 20 mg 00:59: daily. [place] [address] Medical Branch vortioxetin 2017-0 Yes Take by Un leonarda e 10 mg Tab 6-08 mouth ity of 00:59: daily. [place] [address] Medical Branch topiramate Yes 25mg Take 25 mg U nivers (TOPAMAX) 6-08 by mouth ity of 25 mg 00:59: daily. [place] tablet Medical Branch magnesium 2017-0 Yes 400mg [...] mouth ity of 20 mg 00:59: daily. [place] [address] Medical Branch vortioxetin 0 Yes Take by Un leonarda e 10 mg Tab 6-08 mouth ity of 00:59: daily. [place] [address] Medical Branch topiramate 0 Yes 25mg Take 25 mg U nivers (TOPAMAX) 6-08 by mouth ity of 25 mg 00:59: daily. [place] tablet Medical Branch magnesium 2017-0 Yes 400mg [...] 6-08 daily. ity of MISC 00:59: Indication [place] [address] s: OTC Medical Branch clonazePAM 2017-0 Yes [...] mouth ity of 20 mg 00:59: daily. [place] [address] Medical Branch vortioxetin 0 Yes Take by Un leonarda e 10 mg Tab 6-08 mouth ity of 00:59: daily. [place] [address] Medical Branch topiramate 2018- Yes 25mg Take 25 mg U nivers (TOPAMAX) 6-08 by mouth ity of 25 mg 00:59: daily. [place] tablet Medical [place] magnesium 2017-0 Yes 400mg Take 400 Uni [...] 6-08 daily. ity of MISC 00:59: Indication [place] [address] s: OTC Medical Branch Vital Signs Vital Name Observation Time Observation Value Comments Source Systolic blood 2020-05-23 01:36:00 143 mm[Hg] Univer sity of pressure [facility] Diastolic blood 2020-05-23 01:36:00 99 mm[Hg] Unive rsity of pressure [facility] Heart rate 2020-05-23 01:36:00 94 /min Universi ty of [facility] Respiratory rate 2020-05-23 01:36:00 18 /min Univ ersity of [facility] Oxygen saturation in 2020-05-23 01:36:00 100 /min [facility] Arterial blood by [facility] Pulse oximetry Branch Body temperature 2020-05-23 01:15:52 37 Loli [facility] Body height 2020-05-22 22:41:00 [facility] Body weight 2020-05-22 22:41:00 127.007 kg [facility] BMI 2020-05-22 22:41:00 46.59 kg/m2 [facility] Systolic blood 2020-05-23 01:36:00 143 mm[Hg] Univer sity of pressure [facility] Diastolic blood 2020-05-23 01:36:00 99 mm[Hg] [facility] Heart rate 2020-05-23 01:36:00 94 /min [facility] Respiratory rate 2020-05-23 01:36:00 18 /min [facility] Oxygen saturation in 2020-05-23 01:36:00 100 /min [facility] Arterial blood by [facility] Pulse oximetry [place] Body temperature 2020-05-23 01:15:[address] [facility] Body height 2020-05-22 22:41:00 165.1 cm [facility] Body weight 2020-05-22 22:41:00 127.007 kg [facility] BMI 2020-05-22 22:41:00 46.59 kg/m2 [facility] Procedures Procedure Date / Time Performing Clinician Source Performed CT ABDOMEN PELVIS W 2020-05-23 00:46:11 Dao Nicolas [facility] POCT TEST 2020-05-23 00:09:00 Dao Nicolas [facility] LIPASE 2020-05-22 23:59:00 Dao Nicolas [facility] COMP. METABOLIC PANEL 2020-05-22 23:59:00 Dao Nicolas [facility] ([id number]) [facility] CBC WITH DIFF 2020-05-22 23:59:00 Dao Nicolas [facility] URINALYSIS 2020-05-22 23:59:00 Dao Nicolas [facility] CONSENT/REFUSAL FOR 2020-05-22 22:30:18 Doctor Unassigned, [facility] Name Medical Branch AUTHORIZATION FOR 2019-07-28 05:01:00 Doctor Unassigned, No [facility] RELEASE OF PHI Name Medical Branch Encounters Start End Encounter Admission Attending Care Care Encounter Source Date/Time Date/Time Type Type Clinicians Facility Department ID 2021-03-09 Emergency [facility] [id number] Univers 16:53:19 ity [facility] 2020-09-06 Inpatient Hu, Rosalva HCACL DAYS [id number] [facility] 09:45:00 [id number] [facility] 2020-09-04 Inpatient Hu, Rosalva HCACL DAYS [id number] [facility] 09:30:00 [id number] [facility] 2021-02-28 2021-02-28 Outpatient [facility] [address] [place] 10:39:00 10:39:00 _L 1021 [facility] 2021-02-28 2021-02-28 Outpatient [facility] d5a [id number] 00:00:00 00:00:00 , Nisa [id number] Hyacinth [id number] 2020-11-21 2020-11-21 Outpatient [facility] [address] [place] 01:00:00 01:00:00 _L 1020 [facility] 2020-11-21 2020-11-21 Outpatient [facility] [address] [place] 01:00:00 01:00:00 _L 0714 [facility] 2020-11-20 2020-11-20 Outpatient [facility] [address] [place] 06:10:00 06:10:00 _L 0713 [facility] 2020-11-20 2020-11-20 Outpatient [facility] [id number] [id number] 00:00:00 00:00:00 , Nisa [id number] Hyacinth [id number] 2020-05-22 2020-05-22 Emergency Sivan, [facility] [id number] Univers 16:43:00 20:04:00 Dao Eliza Bradly 350.1.13.10 i ty [place] [id number] [facility] 084 [place] 2020-05-22 2020-05-22 Emergency Sivan, [facility] [id number] 16:43:00 20:04:00 Dao Kay Bradly 350.1.13.10 [place] 4.2.7.2.686 [place] [id number] [facility] 2020-05-22 2020-05-22 Orders Doctor ALFRED 1.2.840.114 [id number] Univers 00:00:00 00:00:00 Only Unassigned, MIKHAIL 350.1.13.10 ity of [place] [facility] 4.2.7.2.686 [place] as [id number] [facility] 009 [place] 2020-05-22 2020-05-22 Orders Doctor ALFRED 1.2.840.114 [id number] 00:00:00 00:00:00 Only Unassigned, MIKHAIL 350.1.13.10 [place] [facility] 4.2.7.2.686 [id number] 2020-02-15 2020-02-15 Outpatient G_Pappas [facility] MMG [id number] [place] 12:05:00 12:05:00 1007 [facility] 2019-08-02 2019-08-02 Outpatient R [facility] [id number] Univers 18:40:00 18:40:00 [id number] ity of [facility] 2019-08-02 2019-08-02 Outpatient R [facility] [id number] Univers 18:40:00 18:40:00 ity [facility] 2019-08-02 2019-08-02 Telephone Susan [facility] [id number] Univers 00:00:00 00:00:00 [facility] 350.1.13.10 it y of [place] 4.2.7.2.686 [place]ami[place] as Professio [id number] [address] 2019-08-02 2019-08-02 Telephone GWEN Davis [id number] 00:00:00 00:00:00 [facility] 350.1.13.10 [place] 4.2.7.2.686 Professio [id number] nal 044 [facility] 2019-07-28 2019-07-28 Orders Doctor ALFRED 1.2.840.114 [id number] [facility] 00:00:00 00:00:00 Only Unassigned, MIKHAIL 350.1.13.10 ity of [place] [facility] 4.2.7.2.686 Ramiro as [id number] [facility] paulette 009 [place] 2019-07-28 2019-07-28 Orders Doctor SIMON 1.2.840.114 [id number] 00:00:00 00:00:00 Only Unassigned, MIKHAIL 350.1.13.10 [place] [facility] 4.2.7.2.686 [id number] 2019-02-18 2019-02-21 Inpatient SANDEEP HOSKINS [facility] [id number] [place] 00:00:00 00:00:[address] Results Test Description Test Time Test Comments Results Result Comments Source SURGICAL PATH SPECIMENS 2020-09-11 08:10:00 Test Item Value Reference Range Interpretation Comme nts SURGICAL RUN DATE: PATH 09/11/20 [place] - LAB PAGE 1 RUN TIME: 0810 SPECIMENS Specimen Inquiry RUN USER: INTERFACE (test code = SURG) PATIENT: LACI OQUENDO LOC: MOO U #: [id number] AGE/SX: 25/ F ROOM: RE09/06/20[facility] DR: Rosalva Norris MD : 95 BED: DIS: STATUS: DEP [facility] TLOC: SPEC #: [id number] RECD: STATUS: [facility] RE #: [id number] EDWINA: 09/07/[address] [facility] [address]: Rosalva Norris MD ENTERED: 09/10/20 SP TYPE: SURG SPEC OTHR DR: DOES_NOT KNOW No Primary or Family PhysicianORDERED: GROSS AND MICRO C ODES: [id number] - TONSIL, NOS COPIES TO: DOES_NOT KNOW No Primary [place] [id number] [address] PROCEDURES: GROSS AND MICRO (Incomplete) [...] CONTINUED ON NEXT PAGE RUN DATE: 09/11/20 [place] - LAB PAGE 2 RUN TIME: 809 Specimen Inquiry RUN USER: INTERFACE SPEC #: [id number] PATIENT: LACI OQUENDO #[id number] (Continued) POST-OP DIAGNOSIS Chronic tonsillitis and adenoiditis, chronic otitis media PRE-OP DIAGNOSIS 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 PROTHROMBIN [id number] 14:33:00 Test Item Value Reference Range Interpretation [...] o prevent recurre nt infarct). THROMBOPLASTIN TIME [id number] 14:33:00 Test Item Value Reference Range Interpretation Comments THROMBOPLASTIN TIME 31.5 Seconds 25.0-39.5 N Ther apeutic PARTIAL (test code = Range: 50.4 - 88.3 PTT) Seconds Effective 08/24/2018 CBC W/AUTO [id number] 14:32:00 Test Item Value Reference Range Interpretation [...] REQUIRED (test code NO = MDIFF) PROTHROMBIN [id number] 14:31:00 Test Item Value Reference Range Interpretation [...] o prevent recurrent infar ct). THROMBOPLASTIN TIME [id number] 14:31:00 Test Item Value Reference Range Interpretation Comments THROMBOPLASTIN TIME PARTIAL (test Seconds 25.0-39.5 code = PTT) HCG SERUM [id number] 14:27:00 Test Item Value Reference Range Interpretation Comments HCG SERUM QUAL (test code = SERUM NEGATIVE NEGATIVE HCGQL) CT ABDOMEN PELVIS W [id number] 01:15:53 END OF REPORT Ordering Physician: DAO [...] gallbladder.5. No evidence of appendicitis. RL: 5611 [facility], Radiant Results Inft User - 05/22/2020 [...] No evidence of appendicitis.RL: 5611IMPRESSIONEND OF REPORT [facility]. METABOLIC PANEL (44470)2020-05-23 00:26:00 Test Item Value Reference Range Interpretation Comments NA (test code = 139 mmol/L 135-145 6042241100) K (test code = 4.2 mmol/L 3.5-5 2922274049) CL (test code = 104 mmol/L 98-108 0007863093) CO2 TOTAL (test code = 26 mmol/L 23-31 0904871518) AGAP (test code = 2-16 3474057330) BUN (test code = 13 mg/dL 7-23 9784090705) GLUCOSE (test code = 101 mg/dL 70-110 5298103088) CREATININE (test code = 0.56 mg/dL 0.5-1.04 0242862338) TOTAL BILI (test code = 0.6 mg/dL 0.1-1.5 9292886783) CALCIUM (test code = 7.4 mg/dL 8.6-10.6 L 8437938491) T PROTEIN (test code = 8.8 g/dL 6.3-8.2 H 3345145218) ALBUMIN (test code = 4.2 g/dL 3.5-5 0343222943) ALK PHOS (test code = 66 U/L 34-122 9183487295) ALTv (test code = 26 U/L 5-35 1742-6) AST(SGOT) (test code = 34 U/L 13-40 2077141189) eGFR Calculation mL/min/1.73m2 (Non-) (test code = 0896153813) eGFR Calculation mL/min/1.73m2 () (test code = 3038875362) LUDY (test code = LUDY) Association of [...] tests). Lab Interpretation Abnormal (test code = 81070-7) [facility] [id number] 00:26:00 Test Item Value Reference Range Interpretation Comments LIPASE (test code = 6713350365) 107 U/L 0-220 Lab Interpretation (test code = Normal 19894-5) [facility] Center[facility]ysis2021-01-13 00:24:00 Test Item Value Reference Range Interpretation Comments APPEARANCE (test code = Hazy Clear A 3166374175) COLOR (test code = Yellow Yellow 4647330668) PH (test code = 4.8-8.0 1947650957) SP GRAVITY (test code = 1.003-1.030 3278145533) GLU U QUAL (test code = Normal Normal 3084225684) BLOOD (test code = Negative Negative 9560491228) KETONES (test code = Negative Negative 1768730239) PROTEIN (test code = Negative Negative 2887-8) UROBILIN (test code = Normal Normal 4821509892) BILIRUBIN (test code = Negative Negative 6750785874) NITRITE (test code = Negative Negative 9510892435) LEUK MARCIN (test code = Negative Negative 8271745224) RBC/HPF (test code = <1 See_Comment [Autom ated message] 5289938309) The system [employer] generated this result transmitted ref erence range: 0 - 3 HP F. The reference range was not used to int erpret this result as normal/abnormal . WBC/HPF (test code = See_Comment [Autom ated message] 5327316529) The system [employer] generated this result transmitted ref erence range: 0 - 5 HP F. The reference range was not used to int erpret this result as normal/abnormal . BACTERIA (test code = Negative Negative 3151481133) MUCOUS (test code = Slight Negative LPF A 2978148753) SQ EPITH (test code = HPF 7205707229) Lab Interpretation (test Abnormal code = 82398-6) [facility] with [id number] 00:12:00 Test Item Value Reference Range Interpretation Comments WBC (test code = See_Comment [Automated message] 6690-2) The system [employer] generated this result transmitted ref erence range: 4.30 - 1 1.10 10*3/?L. The re ference range was not u sed to interpret this result as normal/abnor mal. RBC (test code = See_Comment [Automated message] 789-8) The system [employer] generated this result transmitted ref erence range: [...] RDW-SD (test code 40.4 fL 39-49.9 = 41200-7) RDW-CV (test code 13.0 % 12-15.5 = 788-0) PLT (test code = See_Comment [Automated message] 777-3) The system [employer] generated this result transmitted ref erence range: 166 - 35 8 10*3/?L. The re ference range was not u sed to interpret this result as normal/abnor mal. MPV (test code = 10.6 fL 9.5-12.9 34604-0) NRBC/100 WBC (test See_Comment [Automat ed message] code = 9283863266) The syste m which generated this result transmitted ref erence range: 0.0 - 10 .0 /100 WBCs. The refer ence range was not u sed to interpret this result as normal/abnor mal. NRBC x10^3 (test <0.01 See_Comment [Automated message] code = 8914744603) The syste m which generated this result transmitted ref erence range: 10*3/?L. The reference range was not used to interpr et this result as normal/abnormal . GRAN MAT (NEUT) % 57.7 % (test code = 770-8) IMM GRAN % (test 0.40 % code = 3548417098) LYMPH % (test code 32.1 % = 736-9) MONO % (test code 7.4 % = 5905-5) EOS % (test code = 2.1 % 713-8) BASO % (test code 0.3 % = 706-2) GRAN MAT 4.61 10*3/uL 1.88-7.09 x10^3(ANC) (test code = 3643934943) IMM GRAN x10^3 0.03 10*3/uL 0-0.06 (test code = 1348211402) LYMPH x10^3 (test 2.56 10*3/uL 1.32-3.29 code = 731-0) MONO x10^3 (test 0.59 10*3/uL 0.33-0.92 code = 742-7) EOS x10^3 (test 0.17 10*3/uL 0.03-0.39 code = 711-2) BASO x10^3 (test <0.03 0.01-0.07 code = 704-7) [facility] [id number] 00:09:00 Test Item Value Reference Range Interpretation Comments POCT PREG (test code = 1605) negative On board controls acceptable with present C Line (test code = 3574) POCT PREG LOT # (test code = 3575) [id number] POCT PREG TEST DATE (test 01/08/2022 code = 3576) Lab Interpretation (test code = Normal 45688-4) [facility]
== END 2021-10-07 00:10 | disposition home or self-care (01) ==
LOC: ER 21:23
DX: G97.1 Other reaction to spinal and lumbar puncture (principal); R11.2 Nausea with vomiting, unspecified; I10 Essential (primary) hypertension; Z88.3 Allergy status to other anti-infective agents; Z88.5 Allergy status to narcotic agent
CPT/HCPCS: 96361; 96374; 96375; 99283; J1100; J2550; J7030

== ENCOUNTER 2021-12-11 11:08 | Emergency (ER) | payer SELFPAY ==
--- OUTSIDE RECORDS SUMMARY | 2021-12-11 11:12 | XMS REPORT | Continuity of Care Document ---
:1995 Author Organization [facility] t Address [address] [place] [address] Care Team Providers Name Role Phone Rosalva Norris Attending Clinician Unavailable PENNIE_Delvin Attending Clinician Unavailable Nisa Brown Attending Clinician [phone] Dao Hines Attending Clinician Doctor Unassigned, [place] Attending Clinician Unavailable Humberto Attending Clinician Unavailable Deanna Anthony Attending Clinician SANDEEP HOSKINS Attending Clinician Unavailable KELLY Admitting Clinician Unavailable Humberto Admitting Clinician Unavailable YAYA SPICER Admitting Clinician Unavailable Payers Payer Name Policy Type Policy Number Effective Date Expiration Date S jeremy [place] - [id number] [place] [address] (O) [place]OM[place] [id number] HEALTH PROGRAM (MEDICAID) Problems Condition Condition Condition Status Onset Resolution Last Treating Co mments Source Name Details Category Date Date Treatment Clinician Date Mastoiditi Mastoiditi Disease Active U nivers s of both s of both 6-07 ity of sides sides 00:00: [place] [facility] 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 00:00: [place] [facility] 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 U nivers r cerebri r cerebri 0-12 ity of 00:00: [place] [facility] Obesity Obesity Disease Active Univers (BMI (BMI 7-28 ity of 30-39.9) 30-39.9) 00:00: [place] [facility] Blurred Blurred Disease Active Univers vision vision 1-15 ity of 00:00: [place] [facility] Allergies, Adverse Reactions, Alerts Allergy Allergy Status Severity Reaction(s) Onset Inactive Treating Comm ents Source Name Type Date Date Clinician haloperi DA Active OR [facility] dol 4-27 Clear 00:00: 00 [facility] vancomyc DA Active OR [facility] in 4-27 Clear 00:00: [facility] haloperi DA Active OR MASTOIDITIS [facility] dol 4-27 Clear 00:00: [facility] vancomyc DA Active OR MASTOIDITIS [facility] in 4-27 Clear 00:00: [facility] Haloperi Propensi Active Anaphylaxis U nivers dol ty to 5- ity of Lactate adverse 00:00: [place] reaction 00 Medical s Branch HALOPERI DRUG Active Anaphylaxis Uni vers DOL INGREDI 5 ity of LACTATE 00:00: [place] 00 Medical Branch Morphine Propensi Active Other - See Swelling , Univers ty to comments 12-05 pain ity of adverse 00:00: [place] reaction 00 Medical s Branch Vancomyc Propensi Active Unknown - "gives me Univers in ty to See comments 12-05 [place] ity of adverse 00:00: syndrome" [place] reaction Medical s Branch MORPHINE DRUG Active Other-Cmnt Univ ers INGREDI 12-05 ity of 00:00: [place] 00 Medical Branch VANCOMYC DRUG Active Unknown-Cmnt Un leonarda IN INGREDI 12-05 ity of 00:00: [place] 00 Medical Branch Social History Social Habit Start Date Stop Date Quantity Comments Source Sex Assigned At Universit y of [facility] Exposure to Yes University of SARS-CoV-2 (event) [facility] History of tobacco Cigarette Smoker University of use [facility] Alcohol Comment occasional Universit y of [facility] Tobacco use and 2020-05-22 2020-05-22 Current user Univers ity of exposure 00:00:00 00:00:00 [facility] Cigarettes smoked 2020-05-22 2020-05-22 Univers ity of current (pack per 00:00:00 00:00:00 [place] ) - Reported Branch Alcohol intake 2020-05-22 2020-05-22 Current drinker Unive rsity of 00:00:00 00:00:00 of alcohol [facility] (finding) [place] Smoking Status Start Date Stop Date Source Current every day smoker 2020-05-22 00:00:00 Uni versity of [facility] Medications Ordered Filled Start Stop Current Ordering Indication Dosage Frequency Signature Comments Components Source Medication Medication Date Date Medication? Clinician (SIG) Name Name HYDROcodone 2020- No 1{tbl} 1 tablet, Univers -acetaminop 05-23 Oral, ity of hen (NORCO 02:30: 01:27 ONCE, 1 [place] as 5) 5-325 mg 00 :00 dose, Tue Med ical tablet 1 05/22/20 at [facility] tablet 2029, LAMIN iohexol No 120mL 120 mL, Unive rs (OMNIPAQUE 05-23 Intravenou it y of 350 01:00: 00:38 s, ONCE, 1 [place] BULK-100 00 :00 dose, Tue Medica l mL) 05/22/20 at Branch injection 1900, 120 mL Routine NaCl 0.9% 2020- No 1000mL at 999 Uni vers (NS) bolus 05-22 01-13 mL/hr, ity of infusion 23:30: 01:55 1,000 mL, [place] as 1,000 mL 00 :00 IV Medical Infusion, Branch ONCE, 1 dose, 05/22/20 at 1730, LAMIN dicyclomine Yes [id number] 10mg Take 1 Univers (BENTYL) 10 -12 capsule by it y of mg capsule 00:00: mouth [place] (four) Medical times Branch daily as needed for Abdominal pain. ondansetron Yes [id number] 4mg Take 1 Univers 4 mg -12 tablet by ity of disintegrat 00:00: mouth [place] ing tablet 00 every 12 Medic al (twelve) Branch hours as needed for Nausea and Vomiting (N/V). acetaminoph 2020- No 4647 1{tbl} Take 1 U nivers en-codeine 05-22 01-20 tablet by ity of (TYLENOL-CO 00:00: 05:59 [place] DEINE #3) 00 :00 every 6 Medical 300-30 mg (six) Branch tablet hours as needed for Pain (scale 7-10) for up to 7 days. Indication s: acute pain [facility] 2017-05 Yes Take by Uni vers ORAL 0-03 mouth. ity of 20:28: [address] 2017-05 Yes Take by Uni vers ORAL 0-03 mouth. ity of 20:28: [address] 2017-05 Yes Take by Uni vers ORAL 0-03 mouth. ity of 20:28: [address] 2017-05 Yes Take by Uni vers ORAL 0-03 mouth. ity of 20:28: [address] CALCIUM 2017-05 Yes 2500mg Take 2,500 [...] 59 (two) Medical times Branch daily. clonazePAM 2018- Yes 1mg Take 1 mg Un leonarda [...] mouth ity of 20 mg 00:59: daily. [address] Branch vortioxetin 0 Yes Take by Uni vers e 10 mg Tab 6-08 mouth ity of 00:59: daily. [address] Branch topiramate 0 Yes 25mg Take 25 mg U nivers (TOPAMAX) 6-08 by mouth ity of 25 mg 00:59: daily. [place] [address] Medical Branch magnesium 0 Yes 400mg Take [...] 6-08 daily. ity of MISC 00:59: Indication [place] 04 s: OTC Medical Branch clonazePAM 2017-0 Yes 1mg Take 1 mg Un leonarda (KLONOPIN) 6-08 by mouth 3 ity of 1 mg tablet 00:59: (three) [place] 04 times Medical daily. Branch acetaZOLAMI 2017-0 Yes 300mg Take 300 U nivers DE 250 mg 6-08 mg by ity of tablet 00:59: mouth 2 [place] 04 (two) Medical times Branch daily. vilazodone 2017-0 Yes 20mg Take 20 mg U nivers (VIIBRYD) 6-08 by mouth ity of 20 mg 00:59: daily. [place] [address] Medical Branch vortioxetin Yes Take by Uni vers e 10 mg Tab 6-08 mouth ity of 00:59: daily. [place] [address] Medical Branch topiramate Yes 25mg Take 25 mg U nivers (TOPAMAX) 6-08 by mouth ity of 25 mg 00:59: daily. [place] tablet Medical Branch magnesium Yes 400mg Take 400 Uni vers oxide 400 6-08 mg by ity of mg tablet 00:59: mouth [place] [address] daily. Medical Branch cholecalcif Yes 1000U Take 1,000 Univers hira, 6-08 Units by ity of vitamin D3, 00:59: mouth (VITAMIN 04 daily. Medical D3) 1,000 Branch unit tablet POTASSIUM Yes 75mg 75 mg Univers CHLORIDE 6-08 daily. ity of MISC 00:59: Indication [place] [address] s: OTC Medical Branch clonazePAM Yes 1mg Take 1 mg Un leonarda (KLONOPIN) 6-08 by mouth 3 ity of 1 mg tablet 00:59: (three) [place] as 04 times [facility] daily. Branch acetaZOLAMI Yes 300mg Take 300 U nivers DE 250 mg 6-08 mg by ity of tablet 00:59: mouth 2 [place] [address] (two) Medical times Branch daily. vilazodone Yes 20mg Take 20 mg U nivers (VIIBRYD) 6-08 by mouth ity of 20 mg 00:59: daily. [place] [address] Medical Branch vortioxetin Yes Take by Uni vers e 10 mg Tab 6-08 mouth ity of 00:59: daily. [place] [address] Medical Branch topiramate 0 Yes 25mg Take 25 mg U nivers (TOPAMAX) 6-08 by mouth ity of 25 mg 00:59: daily. [place] [address] Medical Branch magnesium 0 Yes 400mg Take 400 Uni vers oxide 400 6-08 mg by ity of mg tablet 00:59: mouth [place] [address] daily. Medical Branch cholecalcif Yes 1000U Take 1,000 Univers hira, 6-08 Units by ity of vitamin D3, 00:59: mouth [place] (VITAMIN 04 daily. Medical D3) 1,000 Branch unit tablet POTASSIUM 2018-0 Yes 75mg 75 mg Univers CHLORIDE 6-08 daily. ity of MISC 00:59: Indication [place] [address] s: OTC Medical Branch clonazePAM 0 Yes 1mg Take 1 mg Un leonarda (KLONOPIN) 6-08 by mouth 3 ity of 1 mg tablet 00:59: (three) [place] as 04 times Medical daily. Branch acetaZOLAMI Yes 300mg Take 300 U nivers DE 250 mg 6-08 mg by ity of tablet 00:59: mouth 2 04 (two) Medical times Branch daily. vilazodone Yes 20mg Take 20 mg U nivers (VIIBRYD) 6-08 by mouth ity of 20 mg 00:59: daily. [address] vortioxetin Yes Take by Uni vers e 10 mg Tab 6-08 mouth ity of 00:59: daily. [place] [address] Medical [place] topiramate Yes 25mg Take 25 mg U nivers (TOPAMAX) 6-08 by mouth ity of 25 mg 00:59: daily. [place] [address] Medical [place] magnesium Yes 400mg Take 400 Uni vers oxide 400 6-08 mg by ity of mg tablet 00:59: mouth [place] 04 daily. Medical Branch cholecalcif Yes 1000U Take 1,000 Univers hira, 6-08 Units by ity of vitamin D3, 00:59: mouth [place] (VITAMIN 04 daily. Medical D3) 1,000 Branch unit tablet POTASSIUM 2017-0 Yes 75mg 75 mg Univers CHLORIDE 6-08 daily. ity of MISC 00:59: Indication [place] 04 s: OTC Medical Branch Vital Signs Vital Name Observation Time Observation Value Comments Source Systolic blood 2020-05-23 01:36:00 143 mm[Hg] Univer sity of pressure [facility] Diastolic blood 2020-05-23 01:36:00 99 mm[Hg] Unive rsity of [facility] Heart rate 2020-05-23 01:36:00 94 /min Universi ty [facility] Respiratory rate 2020-05-23 01:36:00 18 /min [facility] saturation in 2020-05-23 01:36:00 100 /min [place] of Arterial blood by [facility] Pulse oximetry [place] Body temperature 2020-05-23 01:15:52 37 Loli [facility] Body height 2020-05-22 22:41:00 [facility] Body weight 2020-05-22 22:41:00 127.007 kg [facility] BMI 2020-05-22 22:41:00 46.59 kg/m2 [facility] Systolic blood 2020-05-23 01:36:00 143 mm[Hg] Univer sity of pressure [facility] Diastolic blood 2020-05-23 01:36:00 99 mm[Hg] Unive [facility] Heart rate 2020-05-23 01:36:00 94 /min [facility] Respiratory rate 2020-05-23 01:36:00 18 /min [facility] Oxygen saturation in 2020-05-23 01:36:00 100 /min [place] of Arterial blood by [facility] Pulse oximetry Branch Body temperature 2020-05-23 01:15:52 37 Loli [facility] Body height 2020-05-22 22:41:00 165.1 cm [facility] Body weight 2020-05-22 22:41:00 127.007 kg [facility] BMI 2020-05-22 22:41:00 46.59 kg/m2 [facility] Procedures Procedure Date / Time Performing Clinician Source Performed CT ABDOMEN PELVIS W 2020-05-23 00:46:11 Dao Nicolas [facility] CONTRAST [facility] POCT TEST 2020-05-23 00:09:00 Dao Nicolas [facility] LIPASE 2020-05-22 23:59:00 Dao Nicolas [facility] COMP. METABOLIC PANEL 2020-05-22 23:59:00 Dao Nicolas [facility] ([id number]) [facility] CBC WITH DIFF 2020-05-22 23:59:00 Dao Nicolas [facility] URINALYSIS 2020-05-22 23:59:00 Dao Nicolas [facility] CONSENT/REFUSAL FOR 2020-05-22 22:30:18 Doctor Unassigned, [facility] Name Medical Branch AUTHORIZATION FOR 2019-07-28 05:01:00 Doctor Unassigned, No [facility] Name Medical Branch Encounters Start End Encounter Admission Attending Care Care Encounter Source Date/Time Date/Time Type Type Clinicians Facility Department ID 2021-03-09 Emergency [facility] [id number] Univers 16:53:19 ity [facility] 2020-09-06 Inpatient HuRosalva [facility] DAYS [id number] [facility] 09:45:00 [id number] [facility] 2020-09-04 Inpatient Rosalva Norris [facility] DAYS [id number] [facility] 09:30:00 [id number] [facility] 2021-02-28 2021-02-28 Outpatient [facility] 107 [place] 10:39:00 10:39:00 _L [facility] 2021-02-28 2021-02-28 Outpatient [facility] d5a [id number] 00:00:00 00:00:00 , Nisa [id number] Hyacinth [id number] 2020-11-21 2020-11-21 Outpatient [facility] 107 [place] 01:00:00 01:00:00 _L 1020 [facility] 2020-11-21 2020-11-21 Outpatient [facility] 107 [place] 01:00:00 01:00:00 _L 0714 [facility] 2020-11-20 2020-11-20 Outpatient [facility] 107 [place] 06:10:00 06:10:00 _L 0713 [facility] 2020-11-20 2020-11-20 Outpatient [facility] 58a [id number] 00:00:00 00:00:00 , Nisa [id number] Hyacinth [id number] 2020-05-22 2020-05-22 Emergency [facility] [id number] Univers 16:43:00 20:04:00 Dao Kay Bradly [id number] i ty of [place] 4.2.7.2.686 [facility] [place] [id number] [facility] 084 [place] 2020-05-22 2020-05-22 Emergency [place], [facility] [id number] 16:43:00 20:04:00 Dao Eliza Abdullahi [id number] [place] 4.2.7.2.686 [place] [id number] [facility] 2020-05-22 2020-05-22 Orders Doctor ALFRED [id number] Univers 00:00:00 00:00:00 Only Unassigned, MIKHAIL [id number] ity of [place] [facility] 4.2.7.2.686 Ramiro [id number] [facility] 009 Branch 2020-05-22 2020-05-22 Orders Doctor ALFRED 1.2.840.114 [id number] 00:00:00 00:00:00 Only Unassigned, MIKHAIL [id number] [place] [facility] 4.2.7.2.686 [id number] [id number] 2020-02-15 2020-02-15 Outpatient G_Pappas [facility] [id number] [place] 12:05:00 12:05:00 1007 [facility] 2019-08-02 2019-08-02 Outpatient R [facility] [id number] Univers 18:40:00 18:40:00 [id number] ity of [facility] 2019-08-02 2019-08-02 Outpatient R [facility] [id number] Univers 18:40:00 18:40:00 ity of [facility] 2019-08-02 2019-08-02 [facility]phone [facility] [id number] Univers 00:00:00 00:00:00 [facility] [id number] it y of [place] 4.2.7.2.686 [place] as Professio [id number] [place] dical nal 044 [facility] 2019-08-02 2019-08-02 Telephone GWEN Davis [id number] 00:00:00 00:00:00 [facility] [id number] [place] 4.2.7.2.686 Professio [id number] nal 044 [facility] 2019-07-28 2019-07-28 Orders Doctor SIMON [id number] Univers 00:00:00 00:00:00 Only Unassigned, MIKHAIL [id number] [facility] 4.2.7.2.686 [place] as [id number] [address] 2019-07-28 2019-07-28 Orders Doctor SIMON 1.2.840.114 [id number] 00:00:00 00:00:00 Only Unassigned, MIKHAIL [id number] [facility] 4.2.7.2.686 [id number] 2019-02-18 2019-02-21 Inpatient SANDEEP HOSKINS [facility] [id number] [place] 00:00:00 00:00:[address] Results Test Description Test Time Test Comments Results Result Comments Source SURGICAL PATH SPECIMENS 2020-09-11 08:10:00 Test Item Value Reference Range Interpretation An riggins SURGICAL RUN DATE: [place] 09/11/20 Issa FORTE GE 1 RUN TIME: 0810 Specimen Inquiry RUN USER: INTERFACE SPECIMENS PATIENT: (test code LACI HALL [id number] LOC: MOO U #: [id number] AGE/SX: 25/F ROOM: RE09/06/20REG DR: = SURG) Rosalva Norris MD : 95 BED: DIS: STATUS: NOEMY Solomon DC TLOC: SPEC #: [id number] RECD: 09/07/20-1 942 STATUS: [facility] #: [id number] EDWINA: 09/07/201941 SUBM DR: Rosalva Norris MD ENTERED: 09/10/20 SP TYPE: SURG SPEC OTHR DR: DOES_NOT KNOW No Primary or Family PhysicianORDERED: GROSS AND MICRO CODES: [id number] - TONSIL, NOS COPIES TO: DOES_NOT KNOW No Primary [place] [id number] [address] PROCEDURES: GROSS AND MICRO (Incomplete) TISSUES: 1. TONSIL, NOS - Tonsil, left 2. TONSIL, NOS - Tonsil, right FINAL DIAGNOSIS Tonsil, left, tons illectomy: Chronic tonsillitis. Tonsil, right, tonsillectomy: Chronic tonsillitis. GROSS AND MICRO SCOPIC GROSS DESCRIPTION: Received in formalin and labeled "left tonsil" is a 2.9 cm tonsil. Received i n formalin and labeled "right tonsil" is a 2.8 cm tonsil. Section code: (A) - Left tonsil; (B) - Right t onsil. MICROSCOPIC EXAMINATION: Both of the tonsils are expanded by varying sized and shaped reactive lymphoid follicles. CONT INUED ON NEXT PAGE RUN DATE: 09/11/20 [place] [facility] P AGE 2 RUN TIME: 809 Specimen Inquiry RUN USER: INTERFACE SPEC #: [id number] PATIENT: LACI HALL #[id number] (Continued) POST-OP DIAGNOSIS Chronic to nsillitis and adenoiditis, chronic otitis media PRE-OP DIAGNOSIS Chronic tonsillitis and adenoiditis, chronic otitis media Signed SIGNATURE ON FILE Jorge Lindsay MD 09/11/20 0810 END OF REPORT Novel Coronavirus 2018 [id number] 08:22:00 Test Item Value Reference Range Interpretation [...] for the identification of SARS-CoV-2 RNA usingthe [employer] M2000 Sy stem under the FDA Emergen cy UseAuthorizatio n. The testing is perf ormed by personneltraine d in the procedures for the [employer] M2000 molecular diagnostic SARS-CoV-2 assa y in vitro. PROTHROMBIN [id number] 14:33:00 Test Item Value Reference Range Interpretation Comments PROTHROMBIN TIME 13.1 SECONDS 9.3-12.9 H PATIENT (test code = PTP) INTERNATIONAL NORMAL 1.2 0.8-1.2 N TARGET INR BY RATIO (test code = INDICATIO N Indication INR) INR1. Prophylax is of venous thrombos is 2.0 - 3.0 (orthoped ic surgery), Proph ylaxis of venous throm bosis (other than hig h-risk surgery), Treat ment of Deep Vein Thrombosis/Pulm onary Embolism, Preve ntion of systemic emb olism - Tissue heart va lves, Acute Myocardia l Infarction (to prevent systemic emboli sm), Valvular heart disease, Atrial Fibrillation, Bileaflet mecha nical valve in aortic position.2. Mec hanical prosthetic valv es (high risk), 2. 5 - 3.5 Presence of Lup us Anticoagulant o r Antiphospholipi d Antibodies, Pre vention of systemic emb olism - Acute Myocardia l Infarction (to prevent recurrent infar ct). THROMBOPLASTIN TIME [id number] 14:33:00 Test Item Value Reference Range Interpretation Comments THROMBOPLASTIN TIME 31.5 Seconds 25.0-39.5 N Therape utic Range: PARTIAL (test code = 50.4 - 88.3 Seconds PTT) Effective 08/24/2018 CBC W/AUTO [id number] 14:32:00 Test Item Value Reference Range Interpretation [...] REQUIRED (test code NO = MDIFF) PROTHROMBIN [id number] 14:31:00 Test Item Value Reference Range Interpretation Comments PROTHROMBIN TIME SECONDS 9.3-12.9 PATIENT (test code = PTP) INTERNATIONAL NORMAL 1.2 0.8-1.2 N TARGET INR BY RATIO (test code = INDICATIO N Indication INR) INR1. Prophylax is of venous thrombos is 2.0 - 3.0 (orthopedic surgery), Proph ylaxis of venous thrombos is (other than high-risk surgery), Treatment of De ep Vein Thrombosis/Pulm onary Embolism, Preve ntion of systemic emboli sm - Tissue heart va lves, Acute Myocardia l Infarction (to prevent systemic emboli sm), Valvular heart disease, Atrial Fibrilla tion, Bileaflet mecha nical valve in aortic position.2. Mec hanical prosthetic valv es (high risk), 2.5 - 3. 5 Presence of Lup us Anticoagulant o r Antiphospholipi d Antibodies, Pre vention of systemic emb olism - Acute Myocardia l Infarction (to prevent recurrent infar ct). THROMBOPLASTIN TIME [id number] 14:31:00 Test Item Value Reference Range Interpretation Comments THROMBOPLASTIN TIME PARTIAL (test Seconds 25.0-39.5 code = PTT) HCG SERUM [id number] 14:27:00 Test Item Value Reference Range Interpretation Comments HCG SERUM QUAL (test code = SERUM NEGATIVE NEGATIVE HCGQL) CT ABDOMEN PELVIS W [id number] 01:15:53 END OF REPORT Ordering Physician: DAO [...] appendicitis. Findings: No acute processes.2. No dominant ovariancyst or adnexal mass.3. No hydronephrosis.4. Absent gallbladder.5. No evidence of appendicitis. RL: [id number] [facility], Radiant Results Inft User - 05/22/2020 7:17 PM CSTOrdering Physician: DAO NIOCLASClinical Indication: Abd pain, acute, generalized Additional Clinical Information:Comparison: CT scan of the abdomen and pelvis is obtained with IV contrast.CT Scan was performed using ALARA principles. Technique: Lung bases show no infiltrates or effusions. The heart size isnormal.The liver and spleen enhances uniformly. Gallbladder is absent.Adrenal glands and pancreas are normal.There is normal cortical enhancement kidneys without hydronephrosis.Unopacified small bowel: Normal in caliber.In the pelvis,there is fluid in the endometrial cavity. There is nodominant cyst. There is no free fluid.There is no evidence for appendicitis.Findings: No acute processes.2. No dominant ovarian cyst or adnexal mass.3. No hydronephrosis.4. Absent gallbladder.5. No evidence of appendicitis.RL: [id number] OF REPORT [facility]. METABOLIC PANEL ([id number])2020-05-23 00:26:00 Test Item Value Reference Range Interpretation Comments NA (test code = 139 mmol/L 135-145 4199576756) K (test code = 4.2 mmol/L 3.5-5 1073717561) CL (test code = 104 mmol/L 98-108 5183565524) CO2 TOTAL (test code = 26 mmol/L 23-31 3933286364) AGAP (test code = 2-16 6798483664) BUN (test code = 13 mg/dL 7-23 4524048865) GLUCOSE (test code = 101 mg/dL 70-110 7171088781) CREATININE (test code = 0.56 mg/dL 0.5-1.04 7993439379) TOTAL BILI (test code = 0.6 mg/dL 0.1-1.1 2758996309) CALCIUM (test code = 7.4 mg/dL 8.6-10.6 L 0602463195) T PROTEIN (test code = 8.8 g/dL 6.3-8.2 H 7110378975) ALBUMIN (test code = 4.2 g/dL 3.5-5 4351037410) ALK PHOS (test code = 66 U/L 34-122 3268447048) ALTv (test code = 26 U/L 5-35 1742-6) AST(SGOT) (test code = 34 U/L 13-40 0978605584) eGFR Calculation mL/min/1.73m2 (Non-) (test code = 2908484913) eGFR Calculation mL/min/1.73m2 () (test code = 8613470556) LUDY (test code = LUDY) Association of [...] tests). Lab Interpretation Abnormal (test code = 69683-7) [facility] [id number] 00:26:00 Test Item Value Reference Range Interpretation Comments LIPASE (test code = 2266122263) 107 U/L 0-220 Lab Interpretation (test code = Normal 83753-7) [facility] PointeUrinalysis2021-01-13 00:24:00 Test Item Value Reference Range Interpretation Comments APPEARANCE (test code = Hazy Clear A 2837531528) COLOR (test code = Yellow Yellow 4816289451) PH (test code = 4.8-8.0 8945933638) SP GRAVITY (test code = 1.003-1.030 5650309390) GLU U QUAL (test code = Normal Normal 0279766107) BLOOD (test code = Negative Negative 0183439136) KETONES (test code = Negative Negative 9494672655) PROTEIN (test code = Negative Negative 2887-8) UROBILIN (test code = Normal Normal 2275603832) BILIRUBIN (test code = Negative Negative 7948266231) NITRITE (test code = Negative Negative 9666168101) LEUK MARCIN (test code = Negative Negative 0424175249) RBC/HPF (test code = <1 See_Comment [Autom ated message] 9587200064) The system [employer] generated this result transmitted ref erence range: 0 - 3 HP F. The reference range was not used to int erpret this result as normal/abnormal . WBC/HPF (test code = See_Comment [Autom ated message] 3016276871) The system [employer] generated this result transmitted ref erence range: 0 - 5 HP F. The reference range was not used to int erpret this result as normal/abnormal . BACTERIA (test code = Negative Negative [id number]) MUCOUS (test code = Slight Negative LPF A [id number]) SQ EPITH (test code = HPF 6920187001) Lab Interpretation (test Abnormal code = 33061-6) [facility] with [id number] 00:12:00 Test Item Value Reference Range Interpretation Comments WBC (test code = See_Comment [Automated message] 6690-2) The system [employer] generated this result transmitted ref erence range: 4.30 - 1 1.10 10*3/?L. The re ference range was not u sed to interpret this result as normal/abnor mal. RBC (test code = See_Comment [Automated message] 489-8) The system [employer] generated this result transmitted ref erence range: [...] RDW-SD (test code 40.4 fL 39-49.9 = 60298-7) RDW-CV (test code 13.0 % 12-15.5 = 788-0) PLT (test code = See_Comment [Automated message] 327-3) The system whic h generated this result transmitted ref erence range: 166 - 35 8 10*3/?L. The re ference range was not u sed to interpret this result as normal/abnor mal. MPV (test code = 10.6 fL 9.5-12.9 41965-4) NRBC/100 WBC (test See_Comment [Automat ed message] code = 9205835654) The syste m which generated this result transmitted ref erence range: 0.0 - 10 .0 /100 WBCs. The refer ence range was not u sed to interpret this result as normal/abnor mal. NRBC x10^3 (test <0.01 See_Comment [Automated message] code = 6776971872) The syste m which generated this result transmitted ref erence range: 10*3/?L. The reference range was not used to interpr et this result as normal/abnormal . GRAN MAT (NEUT) % 57.7 % (test code = 770-8) IMM GRAN % (test 0.40 % code = 4266551845) LYMPH % (test code 32.1 % = 736-9) MONO % (test code 7.4 % = 5905-5) EOS % (test code = 2.1 % 713-8) BASO % (test code 0.3 % = 706-2) GRAN MAT 4.61 10*3/uL 1.88-7.09 x10^3(ANC) (test code = 1177832002) IMM GRAN x10^3 0.03 10*3/uL 0-0.06 (test code = 9816881102) LYMPH x10^3 (test 2.56 10*3/uL 1.32-3.29 code = 731-0) MONO x10^3 (test 0.59 10*3/uL 0.33-0.92 code = 742-7) EOS x10^3 (test 0.17 10*3/uL 0.03-0.39 code = 711-2) BASO x10^3 (test <0.03 0.01-0.07 code = 704-7) [facility] [id number] 00:09:00 Test Item Value Reference Range Interpretation Comments POCT PREG (test code = 1605) negative On board controls acceptable with present C Line (test code = 3574) POCT PREG LOT # (test code = 3575) [id number] POCT PREG TEST DATE (test 01/08/2022 code = 3576) Lab Interpretation (test code = Normal 45044-2) [facility]
[2021-12-11 12:04] LABS: Urine Blood 2+ (Negative); Urine Glucose Negative (Negative); Urine Protein Negative (Negative); Urine Specific Gravity >=1.030 (1.005-1.030); Urine pH 5.5 (5.0-7.0)
--- NOTE | 2021-12-11 12:44 | EDPHYS ---
Physician Documentation [facility] Name: Letty Hall Age: 26 yrs Sex: Female : 1995 Arrival Date: 12/11/2021 Time: 11:10 Bed 19 Private MD: ED Physician Zi Cerna [employer]: 12/11 11:24 LMP 11/08/2021 tw2 Historical: - Allergies: 11:21 Haldol; tw2 11:21 VANCOMYCIN AND DERIVATIVES; tw2 11:21 Haloperidol; tw2 - PMHx: 11:21 Anxiety; Depression; GERD; hypocalcemia; hypoparathyroidism; psuedo cranial tw2 hypertension; Sinus Tachycardia; - PSHx: 11:21 Cholecystectomy; Tonsillectomy; tw2 - Immunization history:: Client reports having NOT received the Covid vaccine. - Social history:: Smoking status: Patient reports the use of cigarette tobacco products, smokes one-half pack cigarettes per day, Patient uses. Vital Signs: 11:22 Weight 113.4 kg (R); Height 5 ft. 5 in. (165.10 cm); Pain 5/10; tw2 11:24 Pulse 88; Resp 17; Temp 97.2(TE); Pulse Ox 99% on R/A; tw2 11:28 BP 119 / 90; tw2 13:00 BP 121 / 86; Pulse 76; Resp 18; Pulse Ox 100% on R/A; ld1 11:22 Body Mass Index 41.60 (113.40 kg, 165.10 cm) tw2 MDM: 11:[address] [facility] 12:42 Data reviewed: vital signs, nurses notes. Counseling: I had a detailed discussion with rosangela the patient and/or guardian regarding: the historical points, exam findings, and any diagnostic results supporting the discharge/admit diagnosis, lab results, the need for outpatient follow up, to return to the emergency department if symptoms worsen or persist or if there are any questions or concerns that arise at home. ED course: Patient is alert and non toxic in appearance in the ED. No signs of resp distress. patient advised to follow up with pcp and otherwise given strict return precautions. . 12/11 11:28 Order name: COVID-19 SARS RT PCR (Document "Date of Onset" if Symptomatic); Complete tw2 Time: 12:42 12/11 11:28 Order name: Flu; Complete Time: 12:09 2 12/11 11:28 Order name: Urine Dipstick-Ancillary (obtain specimen); Complete Time: 12:03 2 12/11 11:28 Order name: Urine Test (obtain specimen); Complete Time: 12:03 2 12/11 12:04 Order name: Urine Dipstick-Ancillary; Complete Time: 12:09 EDMS Administered Medications: No medications were administered Disposition Summary: 12/11/21 12:43 Discharge Ordered Location: Home [facility] Condition: Stable [facility] Diagnosis - Influenza [facility] Followup: [facility] - With: Private Physician - When: 2 - 3 days - Reason: Recheck today's complaints, Continuance of care, Re-evaluation by your physician Discharge Instructions: - Influenza, Adult [facility] - Discharge Summary Sheet tw2 Forms: - Medication Reconciliation Form [facility] - Thank You Letter [facility] - Antibiotic Education [facility] - Work release form tw2 - Prescription Opioid Use [facility] Prescriptions: - Tamiflu 75 mg Oral Capsule - take 1 tablet by ORAL route every 12 hours for 5 days; 10 tablet; Refills: 0, [facility] Product Selection Permitted Signatures: Dispatcher [employer] EDMS Darryl Gonzalez PA PA jmm Wise, Tara, RN RN tw2
--- NOTE | 2021-12-11 12:44 | ER ---
Nurse's Notes [facility] Name: Letty Hall Age: 26 yrs Sex: Female : 1995 Arrival Date: 12/11/2021 Time: 11:10 Bed 19 Private MD: Diagnosis: Influenza Presentation: 12/11 11:22 Chief complaint: Patient states: i have been running a fever for the past 2 days. i am tw2 also having stomach cramping and nauseousness and a headache. denies v/d. Coronavirus screen: headache, nausea, Client presents with at least one sign or symptom that may indicate coronavirus-19. Standard/surgical mask placed on the client. Provider contacted for isolation considerations. Ebola Screen: Patient denies travel to an Ebola-affected area in the 21 days before illness onset. Initial Sepsis Screen: Does the patient meet any 2 criteria? No. Patient's initial sepsis screen is negative. Does the patient have a suspected source of infection? No. Patient's initial sepsis screen is negative. 11:22 Method Of Arrival: Ambulatory tw2 11:25 Chief complaint: Patient states: it feels like the flu, denies sore throat. tw2 11:28 Risk Assessment: Do you want to hurt yourself or someone else? Patient reports no tw2 desire to harm self or others. Onset of symptoms was December 11, 2021. 11:28 Acuity: BHAKTI 3 tw2 Triage Assessment: 11:23 General: Appears in no apparent distress. obese, Behavior is calm, cooperative, tw2 appropriate for age. Pain: Complains of pain in umbilical area. GI: Reports nausea, LBM yesterday Patient currently denies nausea, vomiting. LANGUAGE ASST: 11:24 LMP 11/08/2021 tw2 Historical: - Allergies: 11:21 Haldol; tw2 11:21 VANCOMYCIN AND DERIVATIVES; tw2 11:21 Haloperidol; tw2 - PMHx: 11:21 Anxiety; Depression; GERD; hypocalcemia; hypoparathyroidism; psuedo cranial tw2 hypertension; Sinus Tachycardia; - PSHx: 11:21 Cholecystectomy; Tonsillectomy; tw2 - Immunization history:: Client reports having NOT received the Covid vaccine. - Social history:: Smoking status: Patient reports the use of cigarette tobacco products, smokes one-half pack cigarettes per day, Patient uses. Screenin:24 Abuse screen: Denies threats or abuse. Nutritional screening: No deficits noted. tw2 Tuberculosis screening: No symptoms or risk factors identified. Fall Risk None identified. Assessment: 11:28 Reassessment: provider REANNA Andrews in triage at this time. tw2 11:30 Reassessment: pt swabbed for flu and covid in triage and given urine specimen cup. pt tw2 returned to [facility]. 13:00 Reassessment: Patient appears in no apparent distress at this time. See triage ld1 assessment. 13:15 GI: Bowel sounds present X 4 quads. Abd is soft and non tender. eh3 Vital Signs: 11:22 Weight 113.4 kg (R); Height 5 ft. 5 in. (165.10 cm); Pain 5/10; tw2 11:24 Pulse 88; Resp 17; Temp 97.2(TE); Pulse Ox 99% on R/A; tw2 11:28 BP 119 / 90; tw2 13:00 BP 121 / 86; Pulse 76; Resp 18; Pulse Ox 100% on R/A; ld1 11:22 Body Mass Index 41.60 (113.40 kg, 165.10 cm) tw2 ED Course: 11:10 Patient arrived in ED. mr 11:11 Darryl Gonzalez PA is PHCP. [facility] 11:11 Zi Cerna MD is Attending Physician. jm 11:21 Arm band placed on. tw2 11:29 Triage completed. tw2 12:28 Navya Brunner, NYA is Primary Nurse. ld1 13:00 Patient has correct armband on for positive identification. Placed in gown. Bed in low ld1 position. Call light in reach. Side rails up X2. Pulse ox on. NIBP on. Door closed. Noise minimized. Warm blanket given. 13:00 No provider procedures requiring assistance completed. Patient did not have IV access ld1 during this emergency room visit. Administered Medications: No medications were administered Medication: 13:00 VIS not applicable for this client. ld1 Outcome: 12:43 Discharge ordered by . [facility] 13:15 Discharged to home ambulatory. 3 13:15 Condition: stable 13:15 Discharge instructions given to patient, Instructed on discharge instructions, follow up and referral plans. medication usage, Demonstrated understanding of instructions, follow-up care, medications, Prescriptions given X 1. 13:17 Patient left the ED. eh3 Signatures: Darryl Gonzalez PA PA jmm Rivera Zeinab mr Vanessa Redman RN RN tw2 Navya Brunner RN RN ld1 Tammy Rosales 3
[2021-12-11 13:50] VITALS: TEMP 97.2
[2021-12-11 13:54] VITALS: BP 121/86; O2SAT 100
== END 2021-12-11 13:17 | disposition home or self-care (01) ==
LOC: ER 11:08
DX: J11.1 Influenza due to unidentified influenza virus with other respiratory manifestations (principal); F17.210 Nicotine dependence, cigarettes, uncomplicated; Z20.822 Contact with and (suspected) exposure to COVID-19; I10 Essential (primary) hypertension; Z88.1 Allergy status to other antibiotic agents; Z88.5 Allergy status to narcotic agent
CPT/HCPCS: 81003; 87804; U0003

== ENCOUNTER 2022-01-11 09:59 | Emergency (ER) | payer SELFPAY ==
--- OUTSIDE RECORDS SUMMARY | 2022-01-11 10:03 | XMS REPORT | Continuity of Care Document ---
:1995 Author Organization [facility] t Address [address] [place] [address] Care Team Providers Name Role Phone Louis Rahman MD, Jer Primary Care Physician [phone] Rosalva Norris Attending Clinician Unavailable KELLY Attending Clinician Unavailable Nisa Brown Attending Clinician [phone] Sivan CARDOSO, Dao B Attending Clinician Doctor Unassigned, [place] Attending Clinician Unavailable Humberto Attending Clinician Unavailable Deanna Anthony Attending Clinician SANDEEP HOSKINS Attending Clinician Unavailable SCHADORIANROECK_L Admitting Clinician Unavailable Humberto Admitting Clinician Unavailable YAYA SPICER Admitting Clinician Unavailable Payers Payer Name Policy Type Policy Number Effective Date Expiration Date S jeremy [place] - [id number] [place] [address] ([facility]) [place] - WOMEN'S [id number] HEALTH PROGRAM (MEDICAID) Problems Condition Condition Condition Status Onset Resolution Last Treating Co mments Source Name Details Category Date Date Treatment Clinician Date Mastoiditi Mastoiditi Disease Active U nivers s of both s of both 6-07 ity of sides sides 00:00: [place] [address] Medical Branch 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 Methodi puncture puncture 0-15 st headache headache 00:00: Hospit a 00 l 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 r cerebri nce 0-12 st 00:00: Hospita 00 l 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 00:00: Hospit a 00 l Hypocalcem Hypocalcem Disease Recurre 2016-05 Methodi ia ia nce 0-12 st 00:00: Hospita 00 l Emotionall Emotionall Disease Active 2016-05 M ethodi y unstable y unstable 0-10 st borderline borderline 00:00: Ho spita personalit personalit 00 l y 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 Cannabis Cannabis Disease Recurre 2016-05 Meth khanh use use nce 0-10 st disorder, disorder, 00:00: Hosp gayle moderate, moderate, 00 l dependence dependence Obesity Obesity Disease Active Univers (BMI (BMI 7-28 ity of 30-39.9) 30-39.9) 00:00: [place] [address] Medical Branch Blurred Blurred Disease Active Univers vision vision 1-15 ity of 00:00: [place] [address] Medical Branch Allergies, Adverse Reactions, Alerts Allergy Allergy Status Severity Reaction(s) Onset Inactive Treating Comm ents Source Name Type Date Date Clinician haloperi DA Active AL [facility] dol 4-27 Clear 00:00: 00 [facility] vancomyc DA Active AL [facility] in 4 Clear 00:00: 00 [facility] haloperi DA Active AL MASTOIDITIS H[facility] dol 4-27 Clear 00:00: 00 [facility] vancomyc DA Active AL MASTOIDITIS HCA in 4 Clear 00:00: 00 [facility] Haloperi Propensi Active Anaphylaxis U nivers dol ty to 5 ity of Lactate adverse 00:00: [place] reaction 00 [facility] HALOPERI DRUG Active Anaphylaxis Uni vers DOL INGREDI 09-08 ity of LACTATE 00:00: [place] [facility] Haloperi Propensi Active 2016-05 Method i dol ty to 0-15 st adverse 00:00: Hospita reaction 00 l s to drug Vancomyc Propensi Active Other (See 2016-05 [place] man M ethodi in ty to Comments) 0-[address] adverse 00:00: Hospita reaction 00 l s to drug Morphine Propensi Active Other - See Swelling , Univers ty to comments 12-05 pain ity of adverse 00:00: [place] reaction 00 [facility] Vancomyc Propensi Active Unknown - "gives me Univers in ty to See comments 12-05 [place] Man ity of adverse 00:00: syndrome" [place] reaction [facility] MORPHINE DRUG Active Other-Cmnt Univ ers INGREDI 12-05 ity of 00:00: [place] [facility] VANCOMYC DRUG Active Unknown-Cmnt Un leonarda IN INGREDI 12-05 ity of 00:00: [place] 00 [facility] Family History Family Member Diagnosis Comments Start Date Stop Date Source Maternal aunt Depression [facility] Maternal aunt Suicide Attempts [facility] Natural mother Depression [facility] Natural mother Suicide Attempts [facility] Social History Social Habit Start Date Stop Date Quantity Comments Source Exposure to Yes University of SARS-CoV-2 (event) [facility] [place] [facility] History of tobacco Cigarette Smoker University of use [facility] [place] [facility] Tobacco use and 2020-05-22 2020-05-22 Current user Univers ity of exposure 00:00:00 00:00:00 [facility] [place] [facility] Cigarettes smoked 2020-05-22 2020-05-22 Univers ity of current (pack per 00:00:00 00:00:00 ) - Reported [place] Alcohol intake 2019-02-20 2019-02-20 Current drinker [facility] dist 00:00:00 00:00:00 of alcohol [facility] (finding) Alcohol Comment 2019-02-19 2019-02-19 drinks casually, Met hodist 00:00:00 00:00:00 once a month, 3 Hospital X a year Sex Assigned At [birth year] [facility] 00:00:00 00:00:00 Hospital Smoking Status Start Date Stop Date Source Current every day smoker 2020-05-22 00:00:00 Uni versity [facility] Medications Ordered Filled Start Stop Current Ordering Indication Dosage Frequency Signature Comments Components Source Medication Medication Date Date Medication? Clinician (SIG) Name Name HYDROcodone 2020- No 1{tbl} 1 tablet, Univers -acetaminop 05-23 Oral, ity of hen (NORCO 02:30: 01:27 ONCE, 1 [place] as 5) 5-325 mg 00 :00 dose, Tue Med ical tablet 1 05/22/20 at [facility] h tablet 2030, LAMIN iohexol 2020- No 120mL 120 mL, Unive rs (OMNIPAQUE 05-23 Intravenou it y of 350 01:00: 00:38 s, ONCE, 1 [place] BULK-100 00 :00 dose, Tue Medica l mL) 05/22/20 at [place] injection 1900, 120 mL Routine NaCl 0.9% 2020- No 1000mL at 999 Uni vers (NS) bolus 05-22 mL/hr, ity of infusion 23:30: 01:55 1,000 mL, Ramiro as 1,000 mL 00 :00 IV Medical Infusion, [place] ONCE, 1 dose, 05/22/20 at 1730, LAMIN dicyclomine Yes [id number] 10mg Take 1 Univers (BENTYL) 10 -12 capsule by it y of mg capsule 00:00: mouth 4 [place] (four) Medical times [place] daily as needed for Abdominal pain. ondansetron Yes [id number] 4mg Take 1 Univers 4 mg 1-12 [...] to 7 days. Indication s: acute pain magnesium 2018-05 Yes 400mg QD Take 400 Met hodi oxide 0-[address] (MAG-OX) 17:06: mouth Hospita 400 mg 45 daily. l (241.3 mg magnesium) tablet cholecalcif 2018-05 Yes 1000U QD Take 1,000 Methodi hira, 0-14 Units by vitamin D3, 17:06: mouth Hospi ta (VITAMIN 45 daily. l D3) 1,000 unit tablet AIFENESIN 2017-05 Yes Take by Uni vers ORAL 0-03 mouth. ity of 20:28: [address] 2017-05 Yes Take by Uni vers ORAL 0-03 mouth. ity of 20:28: [address] 2017-05 Yes Take by Uni vers ORAL 0-03 mouth. ity of 20:28: [address] 2017-05 Yes Take by Uni vers ORAL 0-03 mouth. ity of 20:28: [address] CALCIUM 2017-05 Yes 2500mg Take 2,500 [...] 59 (two) Medical times Branch daily. CALCIUM 2017- Yes 2500mg Take 2,500 Un leonarda CARBONATE [...] mouth ity of 20 mg 00:59: daily. [address] Branch vortioxetin 2017-0 Yes Take by Uni vers e 10 mg Tab 6-08 mouth ity of 00:59: daily. [address] Branch topiramate 2018-0 Yes 25mg Take 25 mg U nivers (TOPAMAX) 6-08 by mouth ity of 25 mg 00:59: daily. [place] [address] Medical Branch magnesium 2018-0 Yes 400mg Take [...] 6-08 daily. ity of MISC 00:59: Indication [place] 04 s: OTC Medical Branch clonazePAM 2018-0 [...] mouth ity of 20 mg 00:59: daily. [place] 04 Medical Branch vortioxetin Yes Take by Uni vers e 10 mg Tab 6-08 mouth ity of 00:59: daily. [place] Medical Branch topiramate Yes 25mg Take 25 mg U nivers (TOPAMAX) 6-08 by mouth ity of 25 mg 00:59: daily. [place] tablet 04 Medical Branch magnesium 0 Yes 400mg Take [...] Indication 04 s: OTC Medical Branch clonazePAM 0 Yes [...] mouth ity of 20 mg 00:59: daily. [place] Medical Branch vortioxetin Yes Take by Uni vers e 10 mg Tab 6-08 mouth ity of 00:59: daily. [place] Medical Branch topiramate Yes 25mg Take 25 mg U nivers (TOPAMAX) 6-08 by mouth ity of 25 mg 00:59: daily. [place] tablet Medical Branch magnesium Yes 400mg Take [...] 6-08 daily. ity of MISC 00:59: Indication [place] 04 s: OTC Medical Branch clonazePAM Yes 1mg Take 1 mg Un leonarda (KLONOPIN) 6-08 by mouth 3 ity of 1 mg tablet 00:59: (three) Rami[place] as 04 times Medical daily. Branch acetaZOLAMI Yes 300mg Take 300 U nivers DE 250 mg 6-08 mg by ity of tablet 00:59: mouth 2 [place] [address] (two) Medical times Branch daily. vilazodone Yes 20mg Take 20 mg U nivers (VIIBRYD) 6-08 by mouth ity of 20 mg 00:59: daily. [place] [address] Medical Branch vortioxetin Yes Take by Uni vers e 10 mg Tab 6-08 mouth ity of 00:59: daily. [address] topiramate Yes 25mg Take 25 mg U nivers (TOPAMAX) 6-08 by mouth ity of 25 mg 00:59: daily. [place] [address] Medical [place] magnesium Yes 400mg Take 400 Uni vers oxide 400 6-08 mg by ity of mg tablet 00:59: mouth [place] 04 daily. Medical Branch cholecalcif Yes 1000U Take 1,000 Univers hira, 6-08 Units by ity of vitamin D3, 00:59: mouth [place] (VITAMIN 04 daily. Medical D3) 1,000 Branch unit tablet POTASSIUM Yes 75mg 75 mg Univers CHLORIDE 6-08 daily. ity of MISC 00:59: Indication [place] [address] s: OT Medical [place] Vital Signs Vital Name Observation Time Observation Value Comments Source Systolic blood 2020-05-23 01:36:00 143 mm[Hg] Univer sity of pressure [facility] [place] [facility] Diastolic blood 2020-05-23 01:36:00 99 mm[Hg] Unive rsity of pressure [facility] [place] [facility] Heart rate 2020-05-23 01:36:00 94 /min [facility] Respiratory rate 2020-05-23 01:36:00 18 /min [facility] Oxygen saturation in 2020-05-23 01:36:00 100 /min [facility] Arterial blood by [facility] Pulse oximetry Branch Body temperature 2020-05-23 01:15:52 37 Loli [facility] Body height 2020-05-22 22:41:00 165.1 cm [facility] Body weight 2020-05-22 22:41:00 127.007 kg [facility] BMI 2020-05-22 22:41:00 46.59 kg/m2 [facility] Systolic blood 2020-05-23 01:36:00 143 mm[Hg] Univer sity of pressure [facility] [place] [facility] Diastolic blood 2020-05-23 01:36:00 99 mm[Hg] Unive [facility] Heart rate 2020-05-23 01:36:00 94 /min [facility] Respiratory rate 2020-05-23 01:36:00 18 /min [facility] Oxygen saturation in 2020-05-23 01:36:00 100 /min [facility] Arterial blood by [facility] Pulse oximetry [place] Body temperature 2020-05-23 01:15:52 37 Loli [facility] Body height 2020-05-22 22:41:00 165.1 cm [facility] Body weight 2020-05-22 22:41:00 127.007 kg [facility] BMI 2020-05-22 22:41:00 46.59 kg/m2 [facility] Procedures Procedure Date / Time Performing Clinician Source Performed CT ABDOMEN PELVIS W 2020-05-23 00:46:11 Dao Nicolas [facility] POCT TEST 2020-05-23 00:09:00 Dao Nicolas [facility] LIPASE 2020-05-22 23:59:00 Dao Nicolas [facility] COMP. METABOLIC PANEL 2020-05-22 23:59:00 Dao Nicolas [facility] ([id number]) [facility] CBC WITH DIFF 2020-05-22 23:59:00 Dao Nicolas [facility] URINALYSIS 2020-05-22 23:59:00 Dao Nicolas [facility] CONSENT/REFUSAL FOR 2020-05-22 22:30:18 Doctor Unassigned, No Un [facility] DIAGNOSIS AND TREATMENT Name Medical Branch AUTHORIZATION FOR 2019-07-28 05:01:00 Doctor Unassigned, No Univ [facility] RELEASE OF PHI Name [facility] Plan of Care Planned Activity Planned Date Details Comments Source Future Scheduled 2022-01-09 HEPATITIS B VACCINES Met [facility] Test 20:17:48 (1 of 3 - 3-dose series) [code = HEPATITIS B VACCINES (1 of 3 - 3-dose series)] Future Scheduled 2022-01-09 COVID-19 VACCINE (#1) [facility] Test 20:17:48 [code = COVID-19 VACCINE (#1)] Future Scheduled 2022-01-09 Pneumococcal Vaccine: [facility] Test 20:17:48 Pediatrics (0 to 5 Years) and At-Risk Patients (6 to 64 Years) (1 - PCV) [code = Pneumococcal Vaccine: Pediatrics (0 to 5 Years) and At-Risk Patients (6 to 64 Years) (1 - PCV)] Future Scheduled 2022-01-[address] [facility] Test 20:17:48 (procedure) [code = 091136193] Future Scheduled 2022-01-09 Screening for [facility] Test 20:17:48 malignant neoplasm of cervix (procedure) [code = 057112864] Future Scheduled 2022-01-09 INFLUENZA VACCINE [facility] Test 20:17:48 [code = INFLUENZA VACCINE] Encounters Start End Encounter Admission Attending Care Care Encounter Source Date/Time Date/Time Type Type Clinicians Facility Department ID 2021-03-09 Emergency [facility] [id number] [facility]-06 Inpatient Rosalva Norris [facility] [id number] [facility] 09:45:00 [id number] [facility] 2020-09-04 Inpatient Rosalva Norris [facility] DAYS [id number] [facility] 09:30:00 [id number] [facility] 2021-02-28 2021-02-28 Outpatient [facility] [address] [place] 10:39:00 10:39:00 _L 1021 [facility] 2021-02-28 2021-02-28 Outpatient [facility] d5a [id number] 00:00:00 00:00:00 , Nisa [id number] Hyacinth [id number] 2020-11-21 2020-11-21 Outpatient [facility] [address] [place] 01:00:00 01:00:00 _L 1020 [facility] 2020-11-21 2020-11-21 Outpatient [facility] [address] [place] 01:00:00 01:00:00 _L 0714 [facility] 2020-11-20 2020-11-20 Outpatient [facility] [address] [place] 06:10:00 06:10:00 _L 0713 [facility] 2020-11-20 2020-11-20 Outpatient [facility] 58a [id number] 00:00:00 00:00:00 , Nisa [id number] Hyacinth [id number] 2020-05-22 2020-05-22 Emergency [place], [facility] [id number] [facility] 16:43:00 20:04:00 Dao Abdullahi [id number] i ty of [place] 4.2.7.2.686 [facility] [id number] [facility] 084 [place] 2020-05-22 2020-05-22 Emergency Sivan, [facility] [id number] 16:43:00 20:04:00 Dao Abdullahi [id number] [place] [address] [place] [address] [id number] [facility] 2020-05-22 2020-05-22 Orders Doctor SIMON [id number] Univers 00:00:00 00:00:00 Only Unassigned, MIKHAIL [id number] ity of [place] [facility] 4.2.7.2.686 [facility] [id number] [facility] 009 Branch 2020-05-22 2020-05-22 Orders Doctor ALFRED 1.2.840.114 [id number] 00:00:00 00:00:00 Only Unassigned, MIKHAIL 350.1.13.10 [place] [facility] 4.2.7.2.686 [id number] 2020-02-15 2020-02-15 Outpatient [facility] [address] [place] 12:05:00 12:05:00 [facility] 2019-08-02 2019-08-02 Outpatient R [facility] [id number] Univers 18:40:00 18:40:00 [id number] ity [facility] 2019-08-02 2019-08-02 Outpatient R [facility] [id number] Univers 18:40:00 18:40:00 ity [facility] 2019-08-02 2019-08-02 Telephone [facility] [id number] [facility] 00:00:00 00:00:00 [facility] [id number] it y of [place] 4.2.7.2.686 Ramiro as Professio [id number] Tn dical [address] Office [facility] 2019-08-02 2019-08-02 Telephone [facility] [id number] 00:00:00 00:00:00 [facility] 350.1.13.10 [place] 4.2.7.2.686 Professio [id number] [address] 2019-07-28 2019-07-28 Orders Doctor ALFRED 1.2.840.114 [id number] Univers 00:00:00 00:00:00 Only Unassigned, MIKHAIL [id number] ity of [place] [facility] 4.2.7.2.686 Ramiro as [id number] [address] 2019-07-28 2019-07-28 Orders Doctor ALFRED 1.2.840.114 [id number] 00:00:00 00:00:00 Only Unassigned, MIKHAIL 350.1.13.10 [place] [facility] 4.2.7.2.686 [id number] 2019-02-18 2019-02-21 Inpatient SANDEEP HOSKINS [facility] [id number] [place] 00:00:00 00:00:[address] Results Test Description Test Time Test Comments Results Result Comments Source SURGICAL PATH SPECIMENS 2020-09-11 08:10:00 Test Item Value Reference Range Interpretation Comme nts SURGICAL RUN DATE: PATH 09/11/20 [facility] - LAB PA GE 1 RUN TIME: 809 Specimen Inquiry RUN USER: INTERFACE SPECIMENS PATIENT: (test code LACI HALL [id number] LOC: U #: [id number] AGE/SX: 25/F ROOM: RE09/06/20REG DR: = SURG) Rosalva Norris MD : 95 BED: DIS: STATUS: NOEMY Oconnor TLOC: SPEC #: [id number] RECD: 09/07/20- 94 STATUS: STACEY REQ #: [id number] EDWINA: 09/07/201941 SUBM DR: Rosalva Norris MD ENTERED: 09/10/20 SP TYPE: SURG SPEC OTHR DR: DOES_NOT KNOW No Primary or Family PhysicianORDERED: GROSS AND MICRO CODES: [id number] - TONSIL, NOS COPIES TO: DOES_NOT KNOW No Primary [place] [address] [place] [address] [phone] PROCEDURES: GROSS AND MICRO (Incomplete) TISSUES: 1. [...] varying sized and shaped reactive lymphoid follicles. MENA AYERS ON NEXT PAGE RUN DATE: 09/11/20 [facility] GE 2 RUN TIME: 0810 Specimen Inquiry RUN USER: INTERFACE SPEC #: [id number] PATIENT: LACI HALL #[id number] (Continued) POST-OP DIAGNOSIS Chronic to nsillitis and adenoiditis, chronic otitis media PRE-OP DIAGNOSIS Chronic tonsillitis and adenoiditis, chronic otitis media Signed SIGNATURE ON FILE Jorge Lindsay MD 09/11/20 0810 END OF REPORT Novel Coronavirus 2018 [id number] 08:22:00 Test Item Value Reference Range Interpretation [...] for the identification of SARS-CoV-2 RNA usingthe Znode M2000 Sy stem under the FDA Emergen cy UseAuthorizatio n. The testing is perf ormed by tiff d in the procedures for the Davies M2000 molecular diagnostic SARS-CoV-2 assa y in vitro. PROTHROMBIN [id number] 14:33:00 Test Item Value Reference Range Interpretation Comments PROTHROMBIN TIME 13.1 SECONDS 9.3-12.9 H PATIENT (test code = PTP) INTERNATIONAL NORMAL 1.2 0.8-1.2 N TARGET INR BY RATIO (test code = INDICATIO N Indication INR) INR1. Prophylax is of venous thrombos is 2.0 - 3.0 (orthoped ic surgery), Proph ylaxis of venous thro mbosis (other than hig h-risk surgery), Treat ment [...] (to prevent recurrent infar ct). THROMBOPLASTIN TIME [id number] 14:33:00 Test Item Value Reference Range Interpretation Comments THROMBOPLASTIN TIME 31.5 Seconds 25.0-39.5 N Therape utic Range: PARTIAL (test code = 50.4 - 88.3 Seconds PTT) Effective 08/24/2018 CBC W/AUTO [id number] 14:32:00 Test Item Value Reference Range Interpretation [...] REQUIRED (test code NO = MDIFF) PROTHROMBIN [id number] 14:31:00 Test Item Value Reference Range Interpretation [...] (to prevent recurrent infar ct). THROMBOPLASTIN TIME [id number] 14:31:00 Test Item Value Reference Range Interpretation Comments THROMBOPLASTIN TIME PARTIAL (test Seconds 25.0-39.5 code = PTT) HCG SERUM [id number] 14:27:00 Test Item Value Reference Range Interpretation Comments HCG SERUM QUAL (test code = SERUM NEGATIVE NEGATIVE HCGQL) CT ABDOMEN PELVIS W [id number] 01:15:53 END OF REPORT Ordering Physician: DAO [...] gallbladder.5. No evidence of appendicitis. RL: 5611 [facility], Radiant Results Inft User - 05/22/2020 7:17 [...] No evidence of appendicitis.RL: 5611IMPRESSIONEND OF REPORT [facility] METABOLIC PANEL (92021)2020-05-23 00:26:00 Test Item Value Reference Range Interpretation Comments NA (test code = 139 mmol/L 135-145 4417940457) K (test code = 4.2 mmol/L 3.5-5 3405265651) CL (test code = 104 mmol/L 98-108 2813736461) CO2 TOTAL (test code = 26 mmol/L 23-31 8534126179) AGAP (test code = 2-16 7526730545) BUN (test code = 13 mg/dL 7-23 8440842980) GLUCOSE (test code = 101 mg/dL 70-110 3727232792) CREATININE (test code = 0.56 mg/dL 0.5-1.04 2658040957) TOTAL BILI (test code = 0.6 mg/dL 0.1-1.3 6748217117) CALCIUM (test code = 7.4 mg/dL 8.6-10.6 L 3353961578) T PROTEIN (test code = 8.8 g/dL 6.3-8.2 H 3529580293) ALBUMIN (test code = 4.2 g/dL 3.5-5 9519954216) ALK PHOS (test code = 66 U/L 34-122 7945155424) ALTv (test code = 26 U/L 5-35 1742-6) AST(SGOT) (test code = 34 U/L 13-40 8435457742) eGFR Calculation mL/min/1.73m2 (Non-) (test code = 6404227035) eGFR Calculation mL/min/1.73m2 () (test code = 0698430485) LUDY (test code = LUDY) Association of [...] tests). Lab Interpretation Abnormal (test code = 17557-4) [facility] [id number] 00:26:00 Test Item Value Reference Range Interpretation Comments LIPASE (test code = 2200926368) 107 U/L 0-220 Lab Interpretation (test code = Normal 54458-0) [facility] Center[facility]ysis2021-[facility]-13 00:24:00 Test Item Value Reference Range Interpretation Comments APPEARANCE (test code = Hazy Clear A 6266041862) COLOR (test code = Yellow Yellow 2156837416) PH (test code = 4.8-8.0 2672349349) SP GRAVITY (test code = 1.003-1.030 8015596293) GLU U QUAL (test code = Normal Normal 3793471867) BLOOD (test code = Negative Negative 3450370226) KETONES (test code = Negative Negative 9264842278) PROTEIN (test code = Negative Negative 2887-8) UROBILIN (test code = Normal Normal 9007145699) BILIRUBIN (test code = Negative Negative 3619374590) NITRITE (test code = Negative Negative 8545092971) LEUK MARCIN (test code = Negative Negative 7980873688) RBC/HPF (test code = <1 See_Comment [Autom ated message] 6370485829) The system F[employer]start generated this result transmitted ref erence range: 0 - 3 HP F. The reference range was not used to int erpret this result as normal/abnormal . WBC/HPF (test code = See_Comment [Autom ated message] 5827998525) The system [employer] generated this result transmitted ref erence range: 0 - 5 HP F. The reference range was not used to int erpret this result as normal/abnormal . BACTERIA (test code = Negative Negative 9005153114) MUCOUS (test code = Slight Negative LPF A 9274199869) SQ EPITH (test code = HPF 0658755359) Lab Interpretation (test Abnormal code = 59057-0) [facility] with [id number] 00:12:00 Test Item Value Reference Range Interpretation Comments WBC (test code = See_Comment [Automated message] 6690-2) The system [employer] generated this result transmitted ref erence range: 4.30 - 1 1.10 10*3/?L. The re ference range was not u sed to interpret this result as normal/abnor mal. RBC (test code = See_Comment [Automated message] 789-8) The system [employer] generated this result transmitted ref erence range: [...] RDW-SD (test code 40.4 fL 39-49.9 = 18258-1) RDW-CV (test code 13.0 % 12-15.5 = 788-0) PLT (test code = See_Comment [Automated message] 777-3) The system [employer] h generated this result transmitted ref erence range: 166 - 35 8 10*3/?L. The re ference range was not u sed to interpret this result as normal/abnor mal. MPV (test code = 10.6 fL 9.5-12.9 60371-9) NRBC/100 WBC (test See_Comment [Automat ed message] code = 5279717210) The syste m which generated this result transmitted ref erence range: 0.0 - 10 .0 /100 WBCs. The refer ence range was not u sed to interpret this result as normal/abnor mal. NRBC x10^3 (test <0.01 See_Comment [Automated message] code = 8976683565) The syste m which generated this result transmitted ref erence range: 10*3/?L. The reference range was not used to interpr et this result as normal/abnormal . GRAN MAT (NEUT) % 57.7 % (test code = 770-8) IMM GRAN % (test 0.40 % code = 1152126191) LYMPH % (test code 32.1 % = 736-9) MONO % (test code 7.4 % = 5905-5) EOS % (test code = 2.1 % 713-8) BASO % (test code 0.3 % = 706-2) GRAN MAT 4.61 10*3/uL 1.88-7.09 x10^3(ANC) (test code = 9170549098) IMM GRAN x10^3 0.03 10*3/uL 0-0.06 (test code = [id number]) LYMPH x10^3 (test 2.56 10*3/uL 1.32-3.29 code = 731-0) MONO x10^3 (test 0.59 10*3/uL 0.33-0.92 code = 742-7) EOS x10^3 (test 0.17 10*3/uL 0.03-0.39 code = 711-2) BASO x10^3 (test <0.03 0.01-0.07 code = 704-7) [id number]00 Test Item Value Reference Range Interpretation Comments POCT PREG (test code = 1605) negative On board controls acceptable with present C Line (test code = 3574) POCT PREG LOT # (test code = 3575) [id number] POCT PREG TEST DATE (test 01/08/2022 code = 3576) Lab Interpretation (test code = Normal 87076-9) [facility]
[2022-01-11 10:35] LABS: Urine Blood Negative (Negative); Urine Glucose Negative (Negative); Urine Protein Negative (Negative); Urine pH 7.5 (5.0-7.0)
[2022-01-11 10:52] LABS: Absolute Lymphocytes (CBC) 1.9 K/uL (0.7-4.9); Hematocrit 41.3 % (36.0-45.0); Lymphocytes % 32.8 % (15.3-44.8); MCV 85.2 fL (80-100); MPV 8.3 fL (7.6-11.3); RBC Red Blood Cell Count 4.85 M/uL (3.86-4.86)
[2022-01-11 11:19] LABS: Albumin 3.4 g/dL (3.4-5.0); Bilirubin Total 0.5 mg/dL (0.2-1.0); Potassium 3.7 mmol/L (3.5-5.1); Protein, Total 8.6 g/dL (6.4-8.2)
[2022-01-11] MEDS ORDERED: CALCIUM GLUCONATE 1 GM IVPB 2 GM/100 ML BAG IV ONE (12:15)
--- NOTE | 2022-01-11 14:10 | EDPHYS ---
Physician Documentation [facility] Name: Letty Hall Age: 26 yrs Sex: Female : 1995 Arrival Date: 01/11/2022 Time: 10:00 Bed 8 Private MD: ED Physician Danyel Up HPI: 01/11 15:42 This 26 yrs old Female presents to ER via Ambulatory with complaints of Abnormal Lab kdr Results. 15:42 The patient has a history of hypocalcemia. She states that she is experiencing cramping kdr and spasms in her arms and legs which is indicative of her calcium being low again. Patient has no other acute complaints.. Onset: The symptoms/episode began/occurred gradually, 2 week(s) ago. Severity of symptoms: At their worst the symptoms were mild moderate just prior to arrival, in the emergency department the symptoms are unchanged. The patient has experienced similar episodes in the past, multiple times. The patient has not recently seen a physician. Historical: - Allergies: 10:36 Haldol; bp 10:36 VANCOMYCIN AND DERIVATIVES; bp - PMHx: 10:36 Anxiety; Depression; GERD; hypocalcemia; hypoparathyroidism; psuedo cranial bp hypertension; Sinus Tachycardia; - PSHx: 10:36 Tonsillectomy; Cholecystectomy; bp - Immunization history:: Adult Immunizations up to date. - Social history:: Smoking status: unknown. ROS: 15:42 Constitutional: Negative for fever, chills, and weight loss, Eyes: Negative for injury, kdr pain, redness, and discharge, ENT: Negative for injury, pain, and discharge, Neck: Negative for injury, pain, and swelling, Cardiovascular: Negative for chest pain, palpitations, and edema, Respiratory: Negative for shortness of breath, cough, wheezing, and pleuritic chest pain, Abdomen/GI: Negative for abdominal pain, nausea, vomiting, diarrhea, and constipation, Back: Negative for injury and pain, : Negative for injury, bleeding, discharge, and swelling, MS/Extremity: Negative for injury and deformity, Skin: Negative for injury, rash, and discoloration, Psych: Negative for depression, anxiety, suicide ideation, homicidal ideation, and hallucinations, Allergy/Immunology: Negative for hives, rash, and allergies, Endocrine: Negative for neck swelling, polydipsia, polyuria, polyphagia, and marked weight changes, Hematologic/Lymphatic: Negative for swollen nodes, abnormal bleeding, and unusual bruising. 15:42 Neuro: Positive for weakness, Muscular spasms secondary to possible hypokalemia. Exam: 15:42 Constitutional: This is a well developed, well nourished patient who is awake, alert, kdr and in no acute distress. Head/Face: Normocephalic, atraumatic. Eyes: Pupils equal round and reactive to light, extra-ocular motions intact. Lids and lashes normal. Conjunctiva and sclera are non-icteric and not injected. Cornea within normal limits. Periorbital areas with no swelling, redness, or edema. Neck: Trachea midline, no thyromegaly or masses palpated, and no cervical lymphadenopathy. Supple, full range of motion without nuchal rigidity, or vertebral point tenderness. No Meningismus. Chest/axilla: Normal chest wall appearance and motion. Nontender with no deformity. No lesions are appreciated. Cardiovascular: Regular rate and rhythm with a normal S1 and S2. No gallops, murmurs, or rubs. Normal PMI, no JVD. No pulse deficits. Respiratory: Lungs have equal breath sounds bilaterally, clear to auscultation and percussion. No rales, rhonchi or wheezes noted. No increased work of breathing, no retractions or nasal flaring. Abdomen/GI: Soft, non-tender, with normal bowel sounds. No distension or tympany. No guarding or rebound. No evidence of tenderness throughout. Back: No spinal tenderness. No costovertebral tenderness. Full range of motion. Skin: Warm, dry with normal turgor. Normal color with no rashes, no lesions, and no evidence of cellulitis. MS/ Extremity: Pulses equal, no cyanosis. Neurovascular intact. Full, normal range of motion. Neuro: Awake and alert, GCS 15, oriented to person, place, time, and situation. Cranial nerves II-XII grossly intact. Motor strength 5/5 in all extremities. Sensory grossly intact. Cerebellar exam normal. Normal gait. Psych: Awake, alert, with orientation to person, place and time. Behavior, mood, and affect are within normal limits. Vital Signs: 10:34 BP 138 / 81; Pulse 89; Resp 16; Temp 98; Pulse Ox 99% ; Weight 117.93 kg; Height 5 ft. bp 5 in. (165.10 cm); 12:20 BP 105 / 72; Pulse 59; Pulse Ox 100% on R/A; eh3 13:10 BP 111 / 67; Pulse 61; Resp 19; Pulse Ox 99% on R/A; eh3 10:34 Body Mass Index 43.27 (117.93 kg, 165.10 cm) bp MDM: 14:09 Patient medically screened. kdr 15:42 Data reviewed: vital signs, nurses notes, lab test result(s), radiologic studies. kdr Counseling: I had a detailed discussion with the patient and/or guardian regarding: the historical points, exam findings, and any diagnostic results supporting the discharge/admit diagnosis, lab results, radiology results, the need for outpatient follow up. ED course: The patient on admission to the ED, is having spasms of the extremity which is being used for blood pressure measurement. 01/11 10:35 Order name: Urine Dipstick-Ancillary; Complete Time: 10:36 EDWY 01/11 10:36 Order name: CBC with Diff; Complete Time: 11:06 kdr 01/11 10:36 Order name: Comprehensive Metabolic Panel; Complete Time: 11:21 kdr 01/11 11:55 Interpretation: CA 6.8. kdr 01/11 10:36 Order name: Calcium kdr 01/11 10:39 Order name: Urine --Ancillary (enter results); Complete Time: 11:54 eb Administered Medications: 12:15 Drug: Calcium Gluconate 2 grams Route: IVPB; Infused Over: 60 mins; Site: right bp antecubital; Disposition Summary: 01/11/22 14:09 Discharge Ordered Location: Home kdr Problem: an acute exacerbation kdr Symptoms: have improved kdr Condition: Stable kdr Diagnosis - Hypocalcemia kdr Followup: kdr - With: Private Physician - When: 2 - 3 days - Reason: If symptoms return, Further diagnostic work-up, Recheck today's complaints, Continuance of care, Re-evaluation by your physician Discharge Instructions: - Discharge Summary Sheet kdr - Hypocalcemia, Adult kdr Forms: - Medication Reconciliation Form kdr - Thank You Letter kdr - Work release form eb Signatures: Dispatcher [employer] [facility] Danyel Up MD MD kdr Joselo Amaral RN RN bp
--- NOTE | 2022-01-11 14:10 | ER ---
Nurse's Notes [facility] Name: Letty Hall Age: 26 yrs Sex: Female : 1995 Arrival Date: 01/11/2022 Time: 10:00 Bed 8 Private MD: Diagnosis: Hypocalcemia Presentation: 01/11 10:34 Chief complaint: Patient states: MY HANDS AND FEET ARE LOCKING UP WHICH MEANS MY bp CALCIUM IS LOW. Coronavirus screen: At this time, the client does not indicate any symptoms associated with coronavirus-19. Ebola Screen: No symptoms or risks identified at this time. Initial Sepsis Screen: Does the patient meet any 2 criteria? No. Patient's initial sepsis screen is negative. Does the patient have a suspected source of infection? No. Patient's initial sepsis screen is negative. Risk Assessment: Do you want to hurt yourself or someone else? Patient reports no desire to harm self or others. Note S/S x 1 WK. Onset of symptoms is unknown. 10:34 Method Of Arrival: Ambulatory bp 10:34 Acuity: BHAKTI 3 bp Triage Assessment: 10:36 General: Appears in no apparent distress. comfortable, obese, Behavior is cooperative, bp appropriate for age, anxious. Pain: Denies pain. EENT: No deficits noted. Neuro: Level of Consciousness is awake, alert, obeys commands, Oriented to Appropriate for age. Cardiovascular: Rhythm is sinus rhythm. Respiratory: No deficits noted. GI: No signs and/or symptoms were reported involving the gastrointestinal system. : No signs and/or symptoms were reported regarding the genitourinary system. Derm: No deficits noted. Musculoskeletal: Reports HAND AND FOOT CRAMPS. Historical: - Allergies: 10:36 Haldol; bp 10:36 VANCOMYCIN AND DERIVATIVES; bp - PMHx: 10:36 Anxiety; Depression; GERD; hypocalcemia; hypoparathyroidism; psuedo cranial bp hypertension; Sinus Tachycardia; - PSHx: 10:36 Tonsillectomy; Cholecystectomy; bp - Immunization history:: Adult Immunizations up to date. - Social history:: Smoking status: unknown. Screenin:37 Abuse screen: Denies threats or abuse. Denies injuries from another. Nutritional bp screening: No deficits noted. Tuberculosis screening: No symptoms or risk factors identified. Fall Risk None identified. Assessment: 10:37 General: SEE TRIAGE NOTE. bp Vital Signs: 10:34 BP 138 / 81; Pulse 89; Resp 16; Temp 98; Pulse Ox 99% ; Weight 117.93 kg; Height 5 ft. bp 5 in. (165.10 cm); 12:20 BP 105 / 72; Pulse 59; Pulse Ox 100% on R/A; eh3 13:10 BP 111 / 67; Pulse 61; Resp 19; Pulse Ox 99% on R/A; eh3 10:34 Body Mass Index 43.27 (117.93 kg, 165.10 cm) bp ED Course: 10:00 Patient arrived in ED. as 10:30 Danyel Up MD is Attending Physician. kdr 10:34 Joselo Amaral, RN is Primary Nurse. bp 10:36 Triage completed. bp 10:36 Arm band placed on. bp 10:37 Patient has correct armband on for positive identification. Bed in low position. Call bp light in reach. Side rails up X2. 10:50 Inserted saline lock: 20 gauge in right antecubital area, using aseptic technique. bp Blood collected. 11:40 Calcium Sent. bp 12:41 Assisted to bathroom. eh3 14:15 No provider procedures requiring assistance completed. IV discontinued, intact, bp bleeding controlled, No redness/swelling at site. Administered Medications: 12:15 Drug: Calcium Gluconate 2 grams Route: IVPB; Infused Over: 60 mins; Site: right bp antecubital; Medication: 10:37 VIS not applicable for this client. bp Outcome: 14:09 Discharge ordered by . kdr 14:16 Discharged to home ambulatory. bp 14:16 Condition: stable 14:16 Discharge instructions given to patient, Instructed on discharge instructions, follow up and referral plans. Demonstrated understanding of instructions, follow-up care. 14:16 Patient left the ED. bp Signatures: Danyel Up MD MD kdr Kennedi Wheatley as Joselo Amaral, RN RN bp Tammy Rosales RN RN 3
[2022-01-11 14:49] VITALS: TEMP 98
[2022-01-11 15:08] VITALS: BP 111/67; O2SAT 99
== END 2022-01-11 14:16 | disposition home or self-care (01) ==
LOC: ER 09:59
DX: E83.51 Hypocalcemia (principal); I10 Essential (primary) hypertension; Z88.3 Allergy status to other anti-infective agents; Z88.5 Allergy status to narcotic agent
CPT/HCPCS: 36415; 80053; 81003; 81025; 85025; 96374; 99284; J0610

== ENCOUNTER 2022-03-20 13:12 | Emergency (ER) | payer OTHER ==
--- OUTSIDE RECORDS SUMMARY | 2022-03-20 13:19 | XMS REPORT | Continuity of Care Document ---
:1995 Author Organization [facility] t Address [address] [place] [place] [address] Care Team Providers Name Role Phone Louis Rahman MD, Jer Primary Care Physician [phone] Rosalva Norris Attending Clinician Unavailable KELLY Attending Clinician Unavailable Nisa Brown Attending Clinician [phone] Sivan JANAE, Dao Kay Attending Clinician Doctor Unassigned, [employer] Attending Clinician Unavailable Humberto Attending Clinician Unavailable Deanna Anthony Attending Clinician SANDEEP HOSKINS Attending Clinician Unavailable KELLY Admitting Clinician Unavailable Humberto Admitting Clinician Unavailable YAYA SPICER Admitting Clinician Unavailable Payers Payer Name Policy Type Policy Number Effective Date Expiration Date S jeremy [place] - [id number] [place] [address] [place]OMEN'S [id number] HEALTH PROGRAM (MEDICAID) Problems Condition Condition Condition Status Onset Resolution Last Treating Co mments Source Name Details Category Date Date Treatment Clinician Date Pain in Pain in Problem Active [place] throat Throat 7-13 Communi 00:00: ty 00 Hospita Clinics Fever Fever Problem Active [place] 7-13 Communi 00:00: ty 00 Hospita l Clinics Wheezing Wheezing Problem Active [place] 7-13 Communi 00:00: ty 00 Hospita l Clinics COVID-19 Covid-19 Problem Active [place] 7-13 Communi 00:00: ty 00 Hospita Clinics Mastoiditi Mastoiditi Disease Active U nivers s of both s of both 6-07 ity of sides sides 00:00: [address] Branch 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 Methodi [...] Obesity Obesity Disease Active Univers (BMI (BMI 12-05 ity of 30-39.9) 30-39.9) 00:00: [place] [facility] Blurred Blurred Disease Active Univers vision vision 1-15 ity of 00:00: [place] [facility] Allergies, Adverse Reactions, Alerts Allergy Allergy Status Severity Reaction(s) Onset Inactive Treating Comm ents Source Name Type Date Date Clinician haloperi DA Active CT [facility] dol 4-27 Clear 00:00: 00 [facility] vancomyc DA Active CT [facility] in 4 Clear 00:00: 00 [facility] haloperi DA Active CT MASTOIDITIS H[facility] dol 4-27 Clear 00:00: 00 [facility] vancomyc DA Active CT MASTOIDITIS H[facility] in 4-27 Clear 00:00: 00 [facility] Haloperi Propensi Active Anaphylaxis U nivers dol ty to 501 ity of Lactate adverse 00:00: [place] reaction Medical Branch HALOPERI DRUG Active Anaphylaxis Uni vers DOL INGREDI 09-08 ity of LACTATE 00:00: Medical Branch Haloperi Propensi Active 2016-05 Method i dol [...] ers INGREDI 12-05 ity of 00:00: [place] [facility] VANCOMYC DRUG Active Unknown-Cmnt Un leonarda IN INGREDI 12-05 ity of 00:00: [address] HALDOL Allergy Active Moderate Other [place] to [facility] ty e Hospita l Clinics Vancomyc Allergy Active Moderate Other [place] in to [facility] ty e Hospita l Clinics Family History Family Member Diagnosis Comments Start Date Stop Date Source Maternal aunt Depression [facility] Maternal [facility] Natural mother Depression [facility] Natural mother Suicide Attempts [facility] Social History Social Habit Start Date Stop Date Quantity Comments Source Exposure to Yes University of SARS-CoV-2 (event) [facility] History of tobacco Cigarette Smoker University of use [facility] Tobacco use and 2020-05-22 2020-05-22 Current user Univers ity of exposure 00:00:00 00:00:00 [facility] Cigarettes smoked 2020-05-22 2020-05-22 Univers ity of current (pack per 00:00:00 00:00:00 [facility] ) - Reported Branch Alcohol intake 2019-02-20 2019-02-20 Current drinker [facility] dist 00:00:00 00:00:00 of alcohol [facility] (finding) Alcohol Comment 2019-02-19 2019-02-19 drinks casually, Met hodist 00:00:00 00:00:00 once a month, 3 Hospital X a year Sex Ass[birth year] At [birth year] [employer] 00:00:00 00:00:00 Hospital Smoking Status Start Date Stop Date Source Heavy Tobacco Smoker [facility] Current every day smoker 2020-05-22 00:00:00 Uni versity of [facility] Medications Ordered Filled Start Stop Current Ordering Indication Dosage Frequency Signature Comments Components Source Medication Medication Date Date Medication? Clinician (SIG) Name Name HYDROcodone 2020- No 1{tbl} 1 tablet, Univers -acetaminop 05-23 Oral, ity of hen (NORCO 02:30: 01:27 ONCE, 1 [place] 5) 5-325 mg 00 :00 dose, Tue Med ical tablet 1 05/22/20 at [facility] h tablet 2030, LAMIN iohexol 2020- No 120mL 120 mL, Unive rs (OMNIPAQUE 05-23 Intravenou it y of 350 01:00: 00:38 s, ONCE, 1 [place] BULK-100 00 :00 dose, Tue Medica l mL) 05/22/20 at Branch injection 1900, 120 mL Routine NaCl 0.9% 2020- No 1000mL at 999 Uni vers (NS) bolus -12 01-13 mL/hr, ity of infusion 23:30: 01:55 1,000 mL, Rami[place] as 1,000 mL 00 :00 IV Medical Infusion, Branch ONCE, 1 dose, 05/22/20 at 1730, LAMIN dicyclomine Yes [id number] 10mg Take 1 Univers (BENTYL) 10 1-12 capsule by it y of mg capsule 00:00: mouth 4 [place] (four) Medical times Branch daily as needed for Abdominal pain. ondansetron Yes [id number] 4mg Take 1 Univers 4 mg 1-12 tablet by ity of disintegrat 00:00: mouth [place] ing tablet 00 every 12 Medic al (twelve) Branch hours as needed for Nausea and Vomiting (N/V). acetaminoph 2020- No [id number] 1{tbl} Take 1 U nivers en-codeine 12 01-20 tablet by ity of (TYLENOL-CO 00:00: [...] Take 1,000 Methodi hira, 0-[address] vitamin D3, 17:06: mouth Hospi ta (VITAMIN 45 daily. l D3) 1,000 unit tablet magnesium 2018-05 Yes 400mg QD Take 400 Met hodi oxide 0-[address] (MAG-OX) 17:06: mouth Hospita 400 mg 45 daily. l (241.3 mg magnesium) tablet cholecalcif 2018-05 Yes 1000U QD Take 1,000 Methodi hira, 0-14 Units by vitamin D3, 17:06: mouth Hospi ta (VITAMIN 45 daily. l D3) 1,000 [facility] Yes Take by Uni vers ORAL 0-03 mouth. ity of 20:28: [address] 2017-05 Yes Take by Uni vers ORAL 0-03 mouth. ity of 20:28: [address] 2017-05 Yes Take by Uni vers ORAL 0-03 mouth. ity of 20:28: [address] 2017-05 Yes Take by Uni vers ORAL 0-03 mouth. ity of 20:28: [address] CALCIUM 2017-05 Yes 2500mg Take 2,500 [...] 59 (two) Medical times Branch daily. clonazePAM Yes 1mg Take 1 mg Un leonarda (KLONOPIN) 6-08 by mouth 3 ity of 1 mg tablet 00:59: (three) [place] as 04 times Medical daily. Branch acetaZOLAMI Yes 300mg Take 300 U nivers DE 250 mg 6-08 mg by ity of tablet 00:59: mouth 2 [place] 04 (two) Medical times Branch daily. vilazodone Yes 20mg Take 20 mg U nivers (VIIBRYD) 6-08 by mouth ity of 20 mg 00:59: daily. [address] vortioxetin Yes Take by Uni vers e 10 mg Tab 6-08 mouth ity of 00:59: daily. [address] topiramate Yes 25mg Take 25 mg U nivers (TOPAMAX) 6-08 by mouth ity of 25 mg 00:59: daily. [place] tablet Medical Branch magnesium 2018-0 Yes 400mg Take [...] [place] 04 s: OTC Medical Branch clonazePAM 2017-0 Yes 1mg Take 1 mg Un leonarda (KLONOPIN) 6-08 by mouth 3 ity of 1 mg tablet 00:59: (three) Ramiro as 04 times Medical daily. Branch acetaZOLAMI Yes 300mg Take 300 U nivers DE 250 mg 6-08 mg by ity of tablet 00:59: mouth 2 (two) Medical times Branch daily. vilazodone 0 Yes 20mg Take 20 mg U nivers (VIIBRYD) 6-08 by mouth ity of 20 mg 00:59: daily. [place] [address] Medical Branch vortioxetin 0 Yes Take by Uni vers e 10 mg Tab 6-08 mouth ity of 00:59: daily. [place] [address] Medical Branch topiramate 2017-0 Yes 25mg Take 25 mg U nivers (TOPAMAX) 6-08 by mouth ity of 25 mg 00:59: daily. [place] tablet 04 Medical Branch magnesium 2017-0 Yes 400mg Take [...] Indication 04 s: OTC Medical Branch clonazePAM 2017-0 Yes 1mg Take 1 mg Un leonarda (KLONOPIN) 6-08 by mouth 3 ity of 1 mg tablet 00:59: (three) [place]ami[place] as 04 times Medical daily. Branch acetaZOLAMI 0 Yes 300mg Take 300 U nivers DE 250 mg 6-08 mg by ity of tablet 00:59: mouth 2 [place] [address] (two) Medical times Branch daily. vilazodone 2017-0 Yes 20mg Take 20 mg U nivers (VIIBRYD) 6-08 by mouth ity of 20 mg 00:59: daily. [place] [address] Medical Branch vortioxetin 2017-0 Yes Take by Uni vers e 10 mg Tab 6-08 mouth ity of 00:59: daily. [place] [address] Medical Branch topiramate 2017-0 Yes 25mg Take 25 mg U nivers (TOPAMAX) 6-08 by mouth ity of 25 mg 00:59: daily. [place] tablet Medical Branch magnesium 2017-0 Yes 400mg Take 400 Uni vers oxide 400 6-08 mg by ity of mg tablet 00:59: mouth [place] 04 daily. Medical Branch cholecalcif Yes 1000U Take 1,000 Univers hira, 6-08 Units by ity of vitamin D3, 00:59: mouth [place] (VITAMIN 04 daily. Medical D3) 1,000 Branch unit tablet POTASSIUM Yes 75mg 75 mg Univers CHLORIDE 6-08 daily. ity of MISC 00:59: Indication [place] [address] s: OTC Medical Branch clonazePAM 0 Yes 1mg Take 1 mg Un leonarda (KLONOPIN) 6-08 by mouth 3 ity of 1 mg tablet 00:59: (three) [place]ami[place] as 04 times Medical daily. Branch acetaZOLAMI 0 Yes 300mg Take 300 U nivers DE 250 mg 6-08 mg by ity of tablet 00:59: mouth 2 [place] [address] (two) Medical times Branch daily. vilazodone 2017-0 Yes 20mg Take 20 mg U nivers (VIIBRYD) 6-08 by mouth ity of 20 mg 00:59: daily. [address] Branch vortioxetin 2017-0 Yes Take by Uni vers e 10 mg Tab 6-08 mouth ity of 00:59: daily. [address] Branch topiramate 2017-0 Yes 25mg Take 25 mg U nivers (TOPAMAX) 6-08 by mouth ity of 25 mg 00:59: daily. [place] tablet Medical Branch magnesium 2017-0 Yes 400mg Take 400 Uni vers oxide 400 6-08 mg by ity of mg tablet 00:59: mouth [place] 04 daily. Medical Branch cholecalcif 2018-0 Yes 1000U Take 1,000 Univers hira, 6-08 Units by ity of vitamin D3, 00:59: mouth [place] (VITAMIN 04 daily. Medical D3) 1,000 Branch unit tablet POTASSIUM 2018-0 Yes 75mg 75 mg Univers CHLORIDE 6-08 daily. ity of MISC 00:59: Indication s: OTC Medical Branch azithromyci azithromyci No azithromyc [place] n 250 mg n 250 mg in 250 mg Co mmuni tablet TAKE tablet TAKE tablet ty 2 TABLETS 2 TABLETS TAKE 2 Hos roxane BY MOUTH ON BY MOUTH ON TABLETS BY l DAY 1 AND DAY 1 AND MOUTH ON C linics THEN TAKE 1 THEN TAKE 1 DAY 1 AND TABLET BY TABLET BY THEN TAKE MOUTH ONCE MOUTH ONCE 1 TABLET A DAY ON A DAY ON BY MOUTH DAY 2 DAY 2 ONCE A DAY THROUGH DAY THROUGH DAY ON DAY 2 5 5 THROUGH DAY 5 calcitriol calcitriol No calcitriol [place] 0.5 mcg 0.5 mcg 0.5 mcg Commun i capsule capsule capsule ty TAKE 1 TAKE 1 TAKE 1 Hospita CAPSULE BY CAPSULE BY CAPSULE BY l MOUTH 4 MOUTH 4 MOUTH 4 Clinic s TIMES DAILY TIMES DAILY TIMES FOR 90 DAYS FOR 90 DAYS DAILY FOR 90 DAYS fluocinonid fluocinonid No fluocinoni [place] e 0.05 % e 0.05 % de 0.05 % Co mmuni topical topical topical ty solution solution solution Hos roxane APPLY TO APPLY TO APPLY TO l AFFECTED AFFECTED AFFECTED Cli nics AREAS OF AREAS OF AREAS OF SCALP AT SCALP AT SCALP AT BEDTIME BEDTIME BEDTIME NEEDED ONE NEEDED ONE NEEDED ONE WEEK ON AND WEEK ON AND WEEK ON ONE WEEK ONE WEEK AND ONE OFF FOR 30 OFF FOR 30 WEEK OFF DAYS DAYS FOR 30 DAYS methocarbam methocarbam No methocarba [place] ol 750 mg ol 750 mg mol 750 mg Communi tablet TAKE tablet TAKE tablet ty 1 TABLET BY 1 TABLET BY TAKE 1 Hospita MOUTH EVERY MOUTH EVERY TABLET BY l 8 HOURS 8 HOURS MOUTH Clinics EVERY 8 HOURS prednisone prednisone No 1dose prednisone [place] 10 mg 10 mg pk(s) 10 mg Communi tablets in tablets in tablets in ty a dose pack a dose pack a dose Hospita Take 1 dose Take 1 dose pack Take l pk by oral pk by oral 1 dose pk Clinics route as route as by oral directed directed route as for 6 days. for 6 days. directed for 6 days. calcitriol calcitriol No calcitriol [place] 0.5 mcg 0.5 mcg 0.5 mcg Commun i capsule capsule capsule ty TAKE 1 TAKE 1 TAKE 1 Hospita CAPSULE BY CAPSULE BY CAPSULE BY l MOUTH 4 MOUTH 4 MOUTH 4 Clinic s TIMES DAILY TIMES DAILY TIMES FOR 90 DAYS FOR 90 DAYS DAILY FOR 90 DAYS Valium 5 mg Valium 5 mg No Valium 5 [place] tablet Take tablet Take mg tablet Communi one tablet one tablet Take one ty 30 minutes 30 minutes tablet 30 Hospita prior to prior to minutes l beginning beginning prior to C linics of MRI for of MRI for beginning anxiety r/t anxiety r/t of MRI for clasutropho clasutropho anxiety [facility] and r/t undergoing undergoing clasutroph closed MRI closed MRI obia and of left of left undergoing foot. foot. closed MRI of left foot. albuterol albuterol No 3mL TID albuterol [place] sulfate 2.5 sulfate 2.5 sulfate Communi mg/3 mL mg/3 mL 2.5 mg/3 ty (0.083 %) (0.083 %) mL (0.083 Hospita solution solution %) l for for solution Clinics nebulizatio nebulizatio for n Inhale 3 n Inhale 3 nebulizati mL 3 times mL 3 times on Inhale a day by a day by 3 mL 3 nebulizatio nebulizatio times a n route as n route as day by directed directed nebulizati for 30 for 30 on route days. days. as directed for 30 days. albuterol albuterol No albuterol [place] sulfate HFA sulfate HFA sulfate Communi 90 90 HFA 90 ty mcg/actuati mcg/actuati mcg/actuat Hospita on aerosol on aerosol ion l inhaler inhaler aerosol Clinic s INHALE 2 INHALE 2 inhaler PUFFS BY PUFFS BY INHALE 2 MOUTH EVERY MOUTH EVERY PUFFS BY 4 TO 6 4 TO 6 MOUTH HOURS HOURS EVERY 4 TO 6 HOURS Vital Signs Vital Name Observation Time Observation Value Comments Source BP Diastolic 2021-02-28 00:00:00 82 mm[Hg] [place] [facility] s Height 2021-02-28 00:00:00 65 [in_i] [facility] s BMI (Body Mass 2021-02-28 00:00:00 44.6 kg/m2 [facility]) [facility] s BP Systolic 2021-02-28 00:00:00 126 mm[Hg] [facility] s Body Weight 2021-02-28 00:00:00 4291.2 [oz_av] [facility] s BP Diastolic 2020-11-20 00:00:00 83 mm[Hg] [facility] s Height 2020-11-20 00:00:00 65 [in_i] [facility] s BMI (Body Mass 2020-11-20 00:00:00 46 kg/m2 [facility]) [facility] s BP Systolic 2020-11-20 00:00:00 137 mm[Hg] [facility] s Body Weight 2020-11-20 00:00:00 4425.6 [oz_av] [facility] s Systolic blood 2020-05-23 01:36:00 143 mm[Hg] Univer sity of [facility] Diastolic blood 2020-05-23 01:36:00 99 mm[Hg] Unive rsity [facility] Heart rate 2020-05-23 01:36:00 94 /min [facility] Respiratory rate 2020-05-23 01:36:00 18 /min [facility] Oxygen saturation in 2020-05-23 01:36:00 100 /min [facility] Arterial blood by [facility] Pulse oximetry Branch Body temperature 2020-05-23 01:15:52 37 [place] [facility] Body height 2020-05-22 22:41:00 165.1 cm [facility] Body weight 2020-05-22 22:41:00 127.007 kg [facility] BMI 2020-05-22 22:41:00 46.59 kg/m2 [facility] Systolic blood 2020-05-23 01:36:00 143 mm[Hg] Univer sity of [facility] Diastolic blood 2020-05-23 01:36:00 99 mm[Hg] [facility] pressure [facility] Heart rate 2020-05-23 01:36:00 94 /min [facility] Respiratory rate 2020-05-23 01:36:00 18 /min [facility] Oxygen saturation in 2020-05-23 01:36:00 100 /min [facility] Arterial blood by [facility] Pulse oximetry Branch Body temperature 2020-05-23 01:15:52 37 [place] [facility] Body height 2020-05-22 22:41:00 165.1 cm [facility] Body weight 2020-05-22 22:41:00 127.007 kg [facility] BMI 2020-05-22 22:41:00 46.59 kg/m2 [facility] Procedures Procedure Date / Time Performing Clinician Source Performed XR, chest, 2 view 2020-11-20 00:00:[address] [facility] [address] ABDOMEN PELVIS W 2020-05-23 00:46:11 Dao Nicolas [facility] CONTRAST [facility] POCT TEST 2020-05-23 00:09:00 Dao Nicolas [facility] LIPASE 2020-05-22 23:59:00 Dao Nicolas [facility] COMP. METABOLIC PANEL 2020-05-22 23:59:00 Dao Nicolas [facility] ([id number]) [facility] CBC WITH DIFF 2020-05-22 23:59:00 Dao Nicolas [facility] URINALYSIS 2020-05-22 23:59:00 Dao Nicolas [facility] CONSENT/REFUSAL FOR 2020-05-22 22:30:18 Doctor Unassigned, [facility] DIAGNOSIS AND TREATMENT [employer] [facility] AUTHORIZATION FOR RELEASE 2019-07-28 05:01:00 Doctor Unassigned, [facility] [employer] [facility] Endoscopy 2015-05-11 00:00:00 [facility] Breast Biopsy 2015-05-11 00:00:00 [facility] Cholecystectomy 2012-05-11 00:00:00 [facility] Clinics Ear Tube Counts Include 234 Beds At [facility] Clinics Plan of Care Planned Activity Planned Date Details Comments Source Future Scheduled Test 2022-03-15 HEPATITIS B VACCINES [facility] 20:07:35 (1 of 3 - 3-dose series) [code = HEPATITIS B VACCINES (1 of 3 - 3-dose series)] Future Scheduled Test 2022-03-15 COVID-19 VACCINE (#1) [facility] 20:07:35 [code = COVID-19 VACCINE (#1)] Future Scheduled Test 2022-03-15 Pneumococcal Vaccine: [facility] 20:07:35 Pediatrics (0 to 5 Years) and At-Risk Patients (6 to 64 Years) (1 - PCV) [code = Pneumococcal Vaccine: Pediatrics (0 to 5 Years) and At-Risk Patients (6 to 64 Years) (1 - PCV)] Future Scheduled Test 2022-03-15 Hepatitis C screening [facility] 20:07:35 (procedure) [code = 920272427] Future Scheduled Test 2022-03-15 Screening for [facility] 20:07:35 malignant neoplasm of cervix (procedure) [code = 247290456] Future Scheduled Test 2022-03-15 INFLUENZA VACCINE [facility] 20:07:35 [code = INFLUENZA VACCINE] Future Scheduled Test 2022-01-09 HEPATITIS B VACCINES [facility] 20:17:48 (1 of 3 - 3-dose series) [code = HEPATITIS B VACCINES (1 of 3 - 3-dose series)] Future Scheduled Test 2022-01-09 COVID-19 VACCINE (#1) [facility] 20:17:48 [code = COVID-19 VACCINE (#1)] Future Scheduled Test 2022-01-09 Pneumococcal Vaccine: [facility] 20:17:48 Pediatrics (0 to 5 Years) and At-Risk Patients (6 to 64 Years) (1 - PCV) [code = Pneumococcal Vaccine: Pediatrics (0 to 5 Years) and At-Risk Patients (6 to 64 Years) (1 - PCV)] Future Scheduled Test 2022-01-09 Hepatitis C screening [facility] 20:17:48 (procedure) [code = 421641195] Future Scheduled Test 2022-01-09 Screening for [facility] 20:17:48 malignant neoplasm of cervix (procedure) [code = 650907690] Future Scheduled Test 2022-01-09 INFLUENZA VACCINE [facility] 20:17:48 [code = INFLUENZA VACCINE] Diagnostic Test 2020-11-20 rapid SARS CoV 2 Ag, [facility] Pending 00:00:00 QL [place], respiratory Hospital Clinics specimen [code = rapid SARS CoV 2 Ag, QL [place], respiratory specimen] Diagnostic Test 2020-11-20 rapid strep group A, [facility] Pending 00:00:00 throat [code = rapid Hospita Clinics strep group A, throat] Diagnostic Test 2020-11-20 rapid flu (A+B) [code Swe [facility] Pending 00:00:00 = rapid flu (A+B)] Hospital Clinics Instructions [facility] Clinic s Encounters Start End Encounter Admission Attending Care Care Encounter Source Date/Time Date/Time Type Type Clinicians Facility Department ID 2021-03-09 Emergency [facility] [id number] Univers 16:53:19 [facility] 2020-08-29 Inpatient Rosalva Norris [facility] [id number] [facility] 12:58:27 50 [facility] 2021-02-28 2021-02-28 Outpatient [facility] 107 [place] 10:39:00 10:39:00 _L [facility]21 [facility] 2021-02-28 2021-02-28 Outpatient [facility] [id number] 00:00:00 00:00:00 , Nisa [id number] Hyacinth [id number] 2021-02-28 2021-02-28 Nisa Claros [facility] [place] - [place] [id number] [place] 00:00:00 00:00:00 [facility] BARBARA GrantC: [facility] ty [address] [place] [address] [address], [place] [address] , Ph. 2020-11-21 2020-11-21 Outpatient [facility] 107 [place] 01:00:00 01:00:00 _L 0714 Commun i ty Hospita l Clinics 2020-11-20 2020-11-20 Outpatient [facility] [id number] -[id number] [place] 06:10:00 06:10:00 _L 0713 Commun i ty Hospita l Clinics 2020-11-20 2020-11-20 Nisa Claros [facility] [place] - [place] 202 [id number] [place] 00:00:00 00:00:[address] [facility] [address] [facility] SABRA engel: Hospital - ty [address], [place] [address] , Ph. 2020-11-20 2020-11-20 Outpatient [facility] [id number] 00:00:00 00:00:00 , Nisa [id number] Hyacinth [id number] 2020-05-22 2020-05-22 Emergency Mcdougal, [facility] [id number] [facility] 16:43:00 20:04:00 Dao Abdullahi [id number] i ty of [place] [id number] [facility] [id number] [facility] 084 Branch 2020-05-22 2020-05-22 Emergency Sivan, [facility] [id number] 16:43:00 20:04:00 Dao Abdullahi [id number] [place] [id number] [place] [address] [id number] [facility] 2020-05-22 2020-05-22 Orders Doctor SIMON [id number] Univers 00:00:00 00:00:00 Only Unassigned, MIKHAIL [id number] ity of [place] [facility] 4.2.7.2.[address] [place] [address] [phone] [facility] 009 Branch 2020-05-22 2020-05-22 Orders Doctor SIMON [id number] 00:00:00 00:00:00 Only Unassigned, MIKHAIL [id number] [employer] [facility] [id number] 2020-02-15 2020-02-15 Outpatient G_Pappas [facility] [id number] [place] 12:05:00 12:05:00 1007 Medical Group 2019-08-02 2019-08-02 Outpatient R [facility] [id number] Univers 18:40:00 18:40:00 ity of [facility] 2019-08-02 2019-08-02 Telephone [facility] [id number] [facility] 00:00:00 00:00:00 [facility] [id number] it y of [place] [id number] Ramiro as Professio [id number] Tn dical [address] Office [facility] 2019-08-02 2019-08-02 Telephone [facility] [id number] 00:00:00 00:00:00 [facility] [id number] [place] [id number] Professio [phone] [place] [address] Office [facility] 2019-07-28 2019-07-28 Orders Doctor ALFRED [id number] Univers 00:00:00 00:00:00 Only Unassigned, MIKHAIL [id number] ity of [place] [facility] [id number] [place]ami[place] as [phone] [address] 2019-07-28 2019-07-28 Orders Doctor ALFRED [id number] 00:00:00 00:00:00 Only Unassigned, MI[facility]HA[id number] [facility] [id number] [id number] 2019-02-18 2019-02-21 Inpatient SANDEEP HOSKINS [facility] [id number] [place] 00:00:00 00:00:[address] Results Test Description Test Time Test Comments Results Result Comments Source SURGICAL PATH SPECIMENS 2020-09-11 08:10:00 Test Item Value Reference Range Interpretation Comme nts SURGICAL RUN DATE: PATH 09/11/20 [place] [facility] GE 1 RUN TIME: 08 Specimen Inquiry RUN USER: INTERFACE SPECIMENS PATIENT: (test code LACI HALL [address]20 LOC: G U #: [id number] AGE/SX: 25/F ROOM: RE09/06/20REG DR: = SURG) Rosalva Norris MD : 95 BED: DIS: STATUS: NOEMY Oconnor TLOC: SPEC #: [id number] RECD: 09/07/20- 942 STATUS: STACEY REQ #: [id number] EDWINA: 09/07/201941 SUBM DR: Rosalva Norris MD ENTERED: 09/10/20 SP TYPE: SURG SPEC OTHR DR: DOES_NOT KNOW No Primary or Family PhysicianORDERED: GROSS AND MICRO CODES: [id number] - TONSIL, NOS COPIES TO: DOES_NOT KNOW No Primary [place] [id number] [address] PROCEDURES: GROSS AND MICRO (Incomplete) TISSUES: 1. TONSIL, NOS - Tonsil, left 2. TONSIL, NOS - Tonsil, right FINAL DIAGNOSIS Tonsil, left , tonsillectomy: Chronic tonsillitis. Tonsil, right, tonsillectomy: Chronic tonsillitis. [...] AYERS ON NEXT PAGE RUN DATE: 09/11/20 [facility] GE 2 RUN TIME: 809 Specimen Inquiry RUN USER: INTERFACE SPEC #: [id number] PATIENT: LACI HALL #[id number] (Continued) POST-OP DIAGNOSIS Chronic to nsillitis and adenoiditis, chronic otitis media PRE-OP DIAGNOSIS Chronic tonsillitis and adenoiditis, chronic otitis media Signed SIGNATURE ON FILE Jorge Lindsay MD 09/11/20 0810 END OF REPORT Novel Coronavirus 2019 [id number] 08:22:00 Test Item Value Reference Range Interpretation [...] for the identification of SARS-CoV-2 RNA usingthe RollCall (roll.to) M2000 Sy stem under the FDA Emergen cy UseAuthorizatio n. The testing is perf ormed by tiff amaya in the procedures for the RollCall (roll.to) M2Zhaopin molecular diagnostic SARS-CoV-2 assa y in vitro. PROTHROMBIN [id number] 14:33:00 Test Item Value Reference Range Interpretation [...] (to prevent recurrent infar ct). THROMBOPLASTIN TIME [id number] 14:33:00 Test Item Value Reference Range Interpretation Comments THROMBOPLASTIN TIME 31.5 Seconds 25.0-39.5 N Therape utic Range: PARTIAL (test code = 50.4 - 88.3 Seconds PTT) Effective 08/24/2018 CBC W/AUTO [id number] 14:32:00 Test Item Value Reference Range Interpretation [...] REQUIRED (test code NO = MDIFF) PROTHROMBIN [id number] 14:31:00 Test Item Value Reference Range Interpretation [...] (to prevent recurrent infar ct). THROMBOPLASTIN TIME [id number] 14:31:00 Test Item Value Reference Range Interpretation Comments THROMBOPLASTIN TIME PARTIAL (test Seconds 25.0-39.5 code = PTT) HCG SERUM [id number] 14:27:00 Test Item Value Reference Range Interpretation Comments HCG SERUM QUAL (test code = SERUM NEGATIVE NEGATIVE HCGQL) CT ABDOMEN PELVIS W [id number] 01:15:53 END OF REPORT Ordering Physician: DAO [...] No evidence of appendicitis.RL: 5611IMPRESSIONEND OF REPORT [facility] METABOLIC PANEL (09399)2020-05-23 00:26:00 Test Item Value Reference Range Interpretation Comments NA (test code = 139 mmol/L 135-145 9018096832) K (test code = 4.2 mmol/L 3.5-5 1085742278) CL (test code = 104 mmol/L 98-108 1725689475) CO2 TOTAL (test code = 26 mmol/L 23-31 2687988074) AGAP (test code = 2-16 6230737109) BUN (test code = 13 mg/dL 7-23 3313640520) GLUCOSE (test code = 101 mg/dL 70-110 0129132852) CREATININE (test code = 0.56 mg/dL 0.5-1.04 1548891926) TOTAL BILI (test code = 0.6 mg/dL 0.1-1.8 3410755666) CALCIUM (test code = 7.4 mg/dL 8.6-10.6 L 1164218578) T PROTEIN (test code = 8.8 g/dL 6.3-8.2 H 0308045952) ALBUMIN (test code = 4.2 g/dL 3.5-5 9817541638) ALK PHOS (test code = 66 U/L 34-122 1010028950) ALTv (test code = 26 U/L 5-35 1742-6) AST(SGOT) (test code = 34 U/L 13-40 7996573086) eGFR Calculation mL/min/1.73m2 (Non-) (test code = 4005927954) eGFR Calculation mL/min/1.73m2 () (test code = 5854244917) LUDY (test code = LUDY) Association of [...] tests). Lab Interpretation Abnormal (test code = 20436-1) [facility] [id number] 00:26:00 Test Item Value Reference Range Interpretation Comments LIPASE (test code = 5842229384) 107 U/L 0-220 Lab Interpretation (test code = Normal 74295-2) [facility]inalysis2021-01-13 00:24:00 Test Item Value Reference Range Interpretation Comments APPEARANCE (test code = Hazy Clear A 3533202323) COLOR (test code = Yellow Yellow 0262572232) PH (test code = 4.8-8.0 9118314602) SP GRAVITY (test code = 1.003-1.030 3474151391) GLU U QUAL (test code = Normal Normal 4878734262) BLOOD (test code = Negative Negative 5102102178) KETONES (test code = Negative Negative 2090408068) PROTEIN (test code = Negative Negative 2887-8) UROBILIN (test code = Normal Normal 5298742399) BILIRUBIN (test code = Negative Negative 7232422898) NITRITE (test code = Negative Negative 7197052438) LEUK MARCIN (test code = Negative Negative 1028746723) RBC/HPF (test code = <1 See_Comment [Autom ated message] 2448671257) The system [employer] generated this result transmitted ref erence range: 0 - 3 HP F. The reference range was not used to int erpret this result as normal/abnormal . WBC/HPF (test code = See_Comment [Autom ated message] 8725379276) The system [employer] generated this result transmitted ref erence range: 0 - 5 HP F. The reference range was not used to int erpret this result as normal/abnormal . BACTERIA (test code = Negative Negative 5657266473) MUCOUS (test code = Slight Negative LPF A 1312648183) SQ EPITH (test code = HPF 4619138528) Lab Interpretation (test Abnormal code = 63025-3) [facility] with [id number] 00:12:00 Test Item Value Reference Range Interpretation Comments WBC (test code = See_Comment [Automated message] 6690-2) The system [employer] generated this result transmitted ref erence range: 4.30 - 1 1.10 10*3/?L. The re ference range was not u sed to interpret this result as normal/abnor mal. RBC (test code = See_Comment [Automated message] 789-8) The system [employer] generated this result transmitted ref erence range: [...] RDW-SD (test code 40.4 fL 39-49.9 = 36428-8) RDW-CV (test code 13.0 % 12-15.5 = 788-0) PLT (test code = See_Comment [Automated message] 777-3) The system [employer] generated this result transmitted ref erence range: 166 - 35 8 10*3/?L. The re ference range was not u sed to interpret this result as normal/abnor mal. MPV (test code = 10.6 fL 9.5-12.9 90319-1) NRBC/100 WBC (test See_Comment [Automat ed message] code = 6799190930) The syste m which generated this result transmitted ref erence range: 0.0 - 10 .0 /100 WBCs. The refer ence range was not u sed to interpret this result as normal/abnor mal. NRBC x10^3 (test <0.01 See_Comment [Automated message] code = 6415850480) The syste m which generated this result transmitted ref erence range: 10*3/?L. The reference range was not used to interpr et this result as normal/abnormal . GRAN MAT (NEUT) % 57.7 % (test code = 770-8) IMM GRAN % (test 0.40 % code = 5019521398) LYMPH % (test code 32.1 % = 736-9) MONO % (test code 7.4 % = 5905-5) EOS % (test code = 2.1 % 713-8) BASO % (test code 0.3 % = 706-2) GRAN MAT 4.61 10*3/uL 1.88-7.09 x10^3(ANC) (test code = 0962671268) IMM GRAN x10^3 0.03 10*3/uL 0-0.06 (test code = 9060614248) LYMPH x10^3 (test 2.56 10*3/uL 1.32-3.29 code = 731-0) MONO x10^3 (test 0.59 10*3/uL 0.33-0.92 code = 742-7) EOS x10^3 (test 0.17 10*3/uL 0.03-0.39 code = 711-2) BASO x10^3 (test <0.03 0.01-0.07 code = 704-7) [facility] [id number] 00:09:00 Test Item Value Reference Range Interpretation Comments POCT PREG (test code = 1605) negative On board controls acceptable with present C Line (test code = 3574) POCT PREG LOT # (test code = 3575) [id number] POCT PREG TEST DATE (test 01/08/2022 code = 3576) Lab Interpretation (test code = Normal 23958-5) [facility]
[2022-03-20 13:49] LABS: Urine Blood 2+ (Negative); Urine Glucose Negative (Negative); Urine Protein Negative (Negative); Urine Specific Gravity >=1.030 (1.005-1.030); Urine pH 5.5 (5.0-7.0)
[2022-03-20 13:52] LABS: Absolute Lymphocytes (CBC) 2.1 K/uL (0.7-4.9); Hematocrit 39.4 % (36.0-45.0); Lymphocytes % 33.6 % (15.3-44.8); MPV 8.6 fL (7.6-11.3); RBC Red Blood Cell Count 4.58 M/uL (3.86-4.86)
[2022-03-20 14:12] LABS: Potassium 3.6 mmol/L (3.5-5.1)
[2022-03-20 14:28] LABS: Urine Specific Gravity/Preg >1.030 (1.005-1.030)
[2022-03-20 14:44] LABS: Urine Specific Gravity/Preg >1.030 (1.005-1.030)
--- NOTE | 2022-03-20 14:53 | RAD REPORT ---
EXAM DESCRIPTION: US - Transvaginal OB - 03/20/2022 2:42 pm CLINICAL HISTORY: spotting COMPARISON: Transvaginal OB dated 07/10/2017 FINDINGS: Transvaginal ultrasound. The uterus measures 8 cm in long axis. No gestational sac identified. Nabothian cysts noted. Neither ovary was visualized. No adnexal mass . No free fluid. IMPRESSION: No gestational sac identified. Therefore, cannot exclude early normal , early e ctopic, or failed first trimester .
--- NOTE | 2022-03-20 15:09 | EDPHYS ---
Physician Documentation [facility] Name: Letty Hall Age: 26 yrs Sex: Female : 1995 Arrival Date: 03/20/2022 Time: 13:15 Bed 26 Private MD: ED Physician Chase Valera HPI: 03/20 14:37 This 26 yrs old Female presents to ER via Ambulatory with complaints of Vaginal snw Bleeding, + Preg <12wks. 14:37 The patient presents with a desire for a test, a desire for an ultrasound to snw document her , pt with "hard won" . D\\T\\C 5 yrs ago. . Onset: The symptoms/episode began/occurred. Associated signs and symptoms: Pertinent positives: spotting, mild lower abd pain. Severity of symptoms: At their worst the symptoms were very mild, mild. The patient has not experienced similar symptoms in the past. The patient has not recently seen a physician. 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 - Social history:: Smoking status: Patient denies any tobacco usage or history of. ROS: 14:36 Constitutional: Negative for fever, chills, and weight loss, Eyes: Negative for injury, snw pain, redness, and discharge, ENT: Negative for injury, pain, and discharge, Neck: Negative for injury, pain, and swelling, Cardiovascular: Negative for chest pain, palpitations, and edema, Respiratory: Negative for shortness of breath, cough, wheezing, and pleuritic chest pain, Abdomen/GI: Negative for abdominal pain, nausea, vomiting, diarrhea, and constipation, Back: Negative for injury and pain, : Negative for injury, discharge, and swelling, "twingy" lower abd tenderness and mild spotting MS/Extremity: Negative for injury and deformity, Skin: Negative for injury, rash, and discoloration, Neuro: Negative for headache, weakness, numbness, tingling, and seizure, Psych: Negative for depression, anxiety, suicide ideation, homicidal ideation, and hallucinations. Exam: 14:35 Constitutional: This is a well developed, well nourished patient who is awake, alert, snw and in no acute distress. Head/Face: Normocephalic, atraumatic. Eyes: Pupils equal round and reactive to light, extra-ocular motions intact. Lids and lashes normal. Conjunctiva and sclera are non-icteric and not injected. Cornea within normal limits. Periorbital areas with no swelling, redness, or edema. ENT: Nares patent. No nasal discharge, no septal abnormalities noted. Tympanic membranes are normal and external auditory canals are clear. Oropharynx with no redness, swelling, or masses, exudates, or evidence of obstruction, uvula midline. Mucous membranes moist. Neck: Trachea midline, no thyromegaly or masses palpated, and no cervical lymphadenopathy. Supple, full range of motion without nuchal rigidity, or vertebral point tenderness. No Meningismus. Chest/axilla: Normal chest wall appearance and motion. Nontender with no deformity. No lesions are appreciated. Cardiovascular: Regular rate and rhythm with a normal S1 and S2. No gallops, murmurs, or rubs. Normal PMI, no JVD. No pulse deficits. Respiratory: Lungs have equal breath sounds bilaterally, clear to auscultation and percussion. No rales, rhonchi or wheezes noted. No increased work of breathing, no retractions or nasal flaring. Back: No spinal tenderness. No costovertebral tenderness. Full range of motion. Skin: Warm, dry with normal turgor. Normal color with no rashes, no lesions, and no evidence of cellulitis. MS/ Extremity: Pulses equal, no cyanosis. Neurovascular intact. Full, normal range of motion. Neuro: Awake and alert, GCS 15, oriented to person, place, time, and situation. Cranial nerves II-XII grossly intact. Motor strength 5/5 in all extremities. Sensory grossly intact. Cerebellar exam normal. Normal gait. 14:35 Abdomen/GI: Inspection: abdomen appears normal, obese Bowel sounds: normal, Palpation: mild abdominal tenderness, in the suprapubic area. Vital Signs: 13:25 BP 128 / 67; Pulse 102; Resp 18; Temp 98.6; Pulse Ox 99% ; Weight 113.4 kg; Height 5 [facility] ft. 7 in. (170.18 cm); 13:38 BP 122 / 71; Pulse 78; Resp 18; Pulse Ox 99% on R/A; eh3 14:30 BP 111 / 68; Pulse 86; Resp 18; Pulse Ox 99% on R/A; eh3 15:20 BP 114 / 69; Pulse 83; Resp 20; Pulse Ox 100% ; kb3 13:25 Body Mass Index 39.16 (113.40 kg, 170.18 cm) [facility] MDM: 13:29 Patient medically screened. snw 15:09 Data reviewed: vital signs, nurses notes. Data interpreted: Pulse oximetry: on room air snw is 99 %. Interpretation: normal. Counseling: I had a detailed discussion with the patient and/or guardian regarding: the historical points, exam findings, and any diagnostic results supporting the discharge/admit diagnosis, lab results, radiology results, the need for outpatient follow up, to return to the emergency department if symptoms worsen or persist or if there are any questions or concerns that arise at home. Special discussion: Based on the history and exam findings, there is no indication for further emergent testing or inpatient evaluation. I discussed with the patient/guardian the need to see the OB Gyne specialist for further evaluation of the symptoms. 15:15 ED course: Pt encouraged to RTED Thursday03/23/22 for repeat QHCG. [facility] 03/20 13:21 Order name: Abo/rh Typing; Complete Time: 14:34 snw 03/20 13:21 Order name: Basic Metabolic Panel; Complete Time: 14:14 snw 03/20 13:21 Order name: CBC with Diff; Complete Time: 13:56 snw 03/20 13:21 Order name: Quantitative Hcg; Complete Time: 14:14 snw 03/20 13:49 Order name: Urine Dipstick-Ancillary; Complete Time: 13:50 EDMS 03/20 14:10 Order name: Urine --Ancillary (enter results); Complete Time: 14:29 kj1 03/20 13:21 Order name: IV Saline Lock; Complete Time: 13:53 snw 03/20 13:21 Order name: Labs collected and sent; Complete Time: 13:53 snw 03/20 13:21 Order name: NPO; Complete Time: 13:27 snw 03/20 13:21 Order name: Urine Dipstick-Ancillary (obtain specimen); Complete Time: 13:49 snw 03/20 14:15 Order name: US Transvaginal Ob; Complete Time: 14:54 snw 03/20 14:23 Order name: Urine --Ancillary (enter results); Complete Time: 14:54 kj1 Administered Medications: No medications were administered Point of Care Testing: Urine : 15:32 hCG Reading: Positive; Control Reading: Positive; kb3 Disposition: 15:53 Co-signature as Attending Physician, Chase Valera MD. Chart complete. rn Disposition Summary: 03/20/22 15:08 Discharge Ordered Location: Home snw Condition: Stable snw Diagnosis - Threatened snw - Hypocalcemia snw Followup: snw - With: Private Physician - When: Tomorrow - Reason: Recheck today's complaints, Continuance of care, Re-evaluation by your physician Followup: snw - With: Emergency Department - When: As needed - Reason: Worsening of condition Discharge Instructions: - Discharge Summary Sheet snw - Genital Herpes snw - Care snw - Threatened Miscarriage snw - Vaginal Bleeding During , First Trimester snw - First Trimester of snw - Hypocalcemia, Adult snw Forms: - Medication Reconciliation Form snw - Thank You Letter snw - Antibiotic Education snw - Prescription Opioid Use snw Prescriptions: - Acyclovir 400 mg Oral Tablet - take 1 tablet by ORAL route every 8 hours for 5 days; 15 tablet; Refills: 0, snw Product Selection Permitted Signatures: Dispatcher [employer] Yee Crisostomo FNP-C [facility] Chase Valera MD MD rn Roxana Clancy RN RN jh5
--- NOTE | 2022-03-20 15:09 | ER ---
Nurse's Notes [facility] Name: Letty Hall Age: 26 yrs Sex: Female : 1995 Arrival Date: 03/20/2022 Time: 13:15 Bed 26 Private MD: Diagnosis: Threatened ;Hypocalcemia Presentation: 03/20 13:25 Chief complaint: Patient states: 9 days of bleeding; just found out i was 5 yesterday, confirmed it today - I am having mild low back pain and my anxiety is just threw the roof. Coronavirus screen: Vaccine status: Patient reports being unvaccinated. Client denies travel out of the [place] in the last 14 days. Ebola Screen: Patient negative for fever greater than or equal to 101.5 degrees Fahrenheit, and additional compatible Ebola Virus Disease symptoms Patient denies exposure to infectious person. Patient denies travel to an Ebola-affected area in the 21 days before illness onset. Initial Sepsis Screen: Does the patient meet any 2 criteria? No. Patient's initial sepsis screen is negative. Does the patient have a suspected source of infection? No. Patient's initial sepsis screen is negative. Risk Assessment: Do you want to hurt yourself or someone else? Patient reports no desire to harm self or others. 13:25 Method Of Arrival: Ambulatory [facility] 13:25 Acuity: BHAKTI 3 jh5 15:32 Onset of symptoms was March 11, 2022. kb3 Triage Assessment: 13:26 General: Appears in no apparent distress. uncomfortable, obese, well groomed, Behavior 5 is calm, cooperative, appropriate for age, anxious. Pain: Complains of pain in back. : Reports vaginal bleeding that is. 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 - Social history:: Smoking status: Patient denies any tobacco usage or history of. Screenin:38 Abuse screen: Denies threats or abuse. Denies injuries from another. Nutritional eh3 screening: No deficits noted. Tuberculosis screening: No symptoms or risk factors identified. Fall Risk None identified. Assessment: 13:26 Obstetrical Assessment: General assessment: awake and alert, anxious, skin warm and eh3 dry, respirations even and unlabored. Pain: Denies pain. Neuro: Oriented to person, place, time, situation. Cardiovascular: Capillary refill < 3 seconds. Respiratory: Airway is patent Respiratory pattern is regular, symmetrical. GI: Abdomen is round non-distended. : Reports vaginal bleeding that is bright red, moderate flow. EENT: No signs and/or symptoms were reported regarding the EENT system. Derm: No signs and/or symptoms reported regarding the dermatologic system. Musculoskeletal: No signs and/or symptoms reported regarding the musculoskeletal system. 14:30 Reassessment: Patient and/or family updated on plan of care and expected duration. Pain eh3 level reassessed. Patient is alert, oriented x 3, equal unlabored respirations, skin warm/dry/pink. Vital Signs: 13:25 BP 128 / 67; Pulse 102; Resp 18; Temp 98.6; Pulse Ox 99% ; Weight 113.4 kg; Height 5 5 ft. 7 in. (170.18 cm); 13:38 BP 122 / 71; Pulse 78; Resp 18; Pulse Ox 99% on R/A; eh3 14:30 BP 111 / 68; Pulse 86; Resp 18; Pulse Ox 99% on R/A; eh3 15:20 BP 114 / 69; Pulse 83; Resp 20; Pulse Ox 100% ; kb3 13:25 Body Mass Index 39.16 (113.40 kg, 170.18 cm) 5 Vitals: 15:31 Heart Tones unable to detect. kb3 ED Course: 13:15 Patient arrived in ED. rg4 13:20 Yee Oconnor FNP-C [facility]. snw 13:20 Chase Valera MD is Attending Physician. snw 13:26 Triage completed. jh5 13:26 Arm band placed on right wrist. jh5 13:27 Tammy Rosales, NYA is Primary Nurse. eh3 13:38 Patient has correct armband on for positive identification. Bed in low position. Call eh3 light in reach. Pulse ox on. NIBP on. Door closed. Noise minimized. Lights dimmed. Warm blanket given. Pillow given. 13:38 Inserted saline lock: 20 gauge in right antecubital area, using aseptic technique. eh3 Blood collected. 13:50 Abo/rh Typing Sent. eh3 13:50 Basic Metabolic Panel Sent. eh3 13:50 CBC with Diff Sent. eh3 13:50 Quantitative Hcg Sent. eh3 14:30 Urine --Ancillary (enter results) Sent. kj1 14:44 US Transvaginal Ob In Process Unspecified. EDMS 15:31 No provider procedures requiring assistance completed. IV discontinued, intact, kb3 bleeding controlled, No redness/swelling at site. Administered Medications: No medications were administered Medication: 15:32 VIS not applicable for this client. kb3 Point of Care Testing: Urine : 15:32 hCG Reading: Positive; Control Reading: Positive; kb3 Outcome: 15:08 Discharge ordered by . snzohra 15:31 Discharged to home ambulatory. kb3 15:31 Condition: stable 15:31 Discharge instructions given to patient, Instructed on discharge instructions, follow up and referral plans. medication usage, Demonstrated understanding of instructions, follow-up care, medications, Prescriptions given X 1. 15:32 Patient left the ED. kb3 Signatures: Dispatcher [employer] EDMS Yee Oconnor, TOBACCO STRIPPER-C TOBACCO STRIPPER-Day Dumont rg4 Hannah Beebe kj1 Roxana Clancy, RN RN jh5 Tammy Rosales, RN RN eh3 Leola Ventura, RN RN kb3
[2022-03-20 15:42] VITALS: TEMP 98.6
[2022-03-20 15:46] VITALS: BP 114/69; O2SAT 100
== END 2022-03-20 15:32 | disposition home or self-care (01) ==
LOC: ER 13:12
DX: O20.0 Threatened abortion (principal); Z3A.00 Weeks of gestation of pregnancy not specified; E83.51 Hypocalcemia
CPT/HCPCS: 36415; 76817; 80048; 81003; 81025; 84702; 85025; 86900; 86901; 99284

== ENCOUNTER 2022-03-23 12:45 | Emergency (ER) | payer OTHER ==
--- OUTSIDE RECORDS SUMMARY | 2022-03-23 14:04 | XMS REPORT | Continuity of Care Document ---
:1995 Author Organization [facility] t Address [address] [place] [place] [address] Care Team Providers Name Role Phone Louis Rahman MD, Jer Primary Care Physician [phone] Rosalva Norris Attending Clinician Unavailable KELLY Attending Clinician Unavailable Nisa Brown Attending Clinician [phone] Sivan SENIOR PROFESSIONAL SERVICES CONSULTANT, Dao B Attending Clinician Doctor Unassigned, [place] Attending Clinician Unavailable Humberto Attending Clinician Unavailable Deanna Anthony Attending Clinician SANDEEP HOSKINS Attending Clinician Unavailable KELLY Admitting Clinician Unavailable Humberto Admitting Clinician Unavailable YAYA SPICER Admitting Clinician Unavailable Payers Payer Name Policy Type Policy Number Effective Date Expiration Date Juanito FREEMAN [place] - [id number] [place] [address] ([facility]) [place] WOMEN'S [id number] HEALTH PROGRAM (MEDICAID) Problems Condition Condition Condition Status Onset Resolution Last Treating Co mments Source Name Details Category Date Date Treatment Clinician Date Pain in Pain in Problem Active [place] throat Throat 7-13 Communi 00:00: ty 00 Hospita Clinics Fever Fever Problem Active [place] 7-13 Communi 00:00: ty [facility] Wheezing Wheezing Problem Active Sween y 7-13 Communi 00:00: ty [facility] COVID-19 Covid-19 Problem Active Sween y 7-13 Communi 00:00: ty 00 [facility] Mastoiditi Mastoiditi Disease Active U nivers s of both s of both 6-07 ity of sides sides 00:00: [address] 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 Methodi puncture [...] Obesity Obesity Disease Active Univers (BMI (BMI - ity of 30-39.9) 30-39.9) 00:00: [place] [facility] Blurred Blurred Disease Active Univers vision vision 1-15 ity of 00:00: [place] [facility] Allergies, Adverse Reactions, Alerts Allergy Allergy Status Severity Reaction(s) Onset Inactive Treating Comm ents Source Name Type Date Date Clinician haloperi DA Active [place] [facility] dol 4 Clear 00:00: 00 [facility] vancomyc DA Active [place] [facility] in 09-04 Clear 00:00: 00 [facility] haloperi DA Active [place] [facility] dol 4-27 Clear 00:00: 00 [facility] vancomyc DA Active [place] [facility] in 427 Clear 00:00: 00 [facility] Haloperi Propensi Active Anaphylaxis U nivers dol ty to 5 ity of Lactate adverse 00:00: [place] reaction Medical [facility] HALOPERI DRUG Active Anaphylaxis Uni vers DOL INGREDI 09-08 ity of LACTATE 00:00: Medical [place] Haloperi Propensi Active 2016-05 Method i dol [...] of adverse 00:00: [place] reaction 00 Medical Branch Vancomyc Propensi Active Unknown - "gives me Univers in ty to See comments 12-05 [place] ity of adverse 00:00: syndrome" [place] reaction Medical s Branch MORPHINE DRUG Active Other-Cmnt Univ ers INGREDI 12-05 ity of 00:00: [place] [facility] VANCOMYC DRUG Active Unknown-Cmnt 2017-0 Un leonarda IN INGREDI 7-28 ity of 00:00: [place] 00 [facility] Branch HALDOL Allergy Active Moderate Other [place] to [facility] Hosp[facility] l Clinics Vancomyc Allergy Active Moderate Other Sween y in to [facility] ty e Hospita [facility] Clinics Family History Family Member Diagnosis Comments Start Date Stop Date Source Maternal aunt Depression [facility] ospital M[facility] [place] [facility] Natural mother Depression [facility] Natural mother [facility] Social History Social Habit Start Date Stop Date Quantity Comments Source Exposure to Yes University of SARS-CoV-2 (event) [facility] History of tobacco Cigarette Smoker University of use [facility] Tobacco use and 2020-05-22 2020-05-22 Current user Univers ity of exposure 00:00:00 00:00:00 [facility] Cigarettes smoked 2020-05-22 2020-05-22 Univers ity of current (pack per 00:00:00 00:00:00 [facility] ) - Reported Branch Alcohol intake 2019-02-20 2019-02-20 Current drinker Metho dist 00:00:00 00:00:00 of alcohol Hospital (finding) Alcohol Comment 2019-02-19 2019-02-19 drinks casually, Met hodist 00:00:00 00:00:00 once a month, 3 Hospital X a year Sex Assigned At [birth year] [facility] 00:00:00 00:00:00 Hospital Smoking Status Start Date Stop Date Source Heavy Tobacco Smoker [facility] Current every day smoker 2020-05-22 00:00:00 Uni versity of [facility] Medications Ordered Filled Start Stop [...] dose, 05/22/20 at 1730, LAMIN dicyclomine Yes [id number] 10mg Take 1 Univers (BENTYL) 10 1-12 capsule by it y of mg capsule 00:00: mouth 4 [place] (four) Medical times Branch daily as needed for Abdominal pain. ondansetron Yes [id number] 4mg Take 1 Univers 4 mg 1-12 [...] 45 daily. l D3) 1,000 unit tablet GUAIFENESIN 2017-05 Yes Take by Uni vers ORAL 0-03 mouth. ity of 20:28: [address] 2017-05 Yes Take by Uni vers ORAL 0-03 mouth. ity of 20:28: [address] 2017-05 Yes Take by Uni vers ORAL 0-03 mouth. ity of 20:28: [address] 2017-05 Yes Take by Uni vers ORAL 0-03 mouth. ity of 20:28: [address] CALCIUM 2017-05 Yes 2500mg Take 2,500 [...] mouth ity of 20 mg 00:59: daily. [place] [address] Medical Branch vortioxetin 2017-0 Yes Take by Uni vers e 10 mg Tab 6-08 mouth ity of 00:59: daily. [place] [address] Medical Branch topiramate 2018-0 Yes 25mg Take 25 mg U nivers (TOPAMAX) 6-08 by mouth ity of 25 mg 00:59: daily. [place] tablet Medical Branch magnesium 2017-0 Yes 400mg [...] 6-08 daily. ity of MISC 00:59: Indication [place] [address] s: OTC Medical Branch clonazePAM 2017-0 Yes 1mg Take 1 mg Un leonarda (KLONOPIN) 6-08 by mouth 3 ity of 1 mg tablet 00:59: (three) [place] as 04 times Medical daily. Branch acetaZOLAMI 0 Yes 300mg Take 300 U nivers DE 250 mg 6-08 mg by ity of tablet 00:59: mouth 2 (two) Medical times Branch daily. vilazodone 2017-0 Yes 20mg Take 20 mg U nivers (VIIBRYD) 6-08 by mouth ity of 20 mg 00:59: daily. [place] [address] Medical Branch vortioxetin 2017-0 Yes Take by Uni vers e 10 mg Tab 6-08 mouth ity of 00:59: daily. [place] [address] Medical Branch topiramate 2018-0 Yes 25mg Take 25 mg U nivers (TOPAMAX) 6-08 by mouth ity of 25 mg 00:59: daily. [place] tablet Medical Branch magnesium 2018-0 Yes 400mg Take 400 Uni vers oxide 400 6-08 mg by ity of mg tablet 00:59: mouth [place] 04 daily. Medical Branch cholecalcif 2017-0 Yes 1000U Take 1,000 Univers hira, 6-08 Units by ity of vitamin D3, 00:59: mouth [place] (VITAMIN 04 daily. Medical D3) 1,000 Branch unit tablet POTASSIUM 2018-0 Yes 75mg 75 mg Univers CHLORIDE 6-08 daily. ity of MISC 00:59: Indication [place] 04 s: OTC Medical Branch clonazePAM 2018-0 Yes 1mg Take 1 mg Un leonarda (KLONOPIN) 6-08 by mouth 3 ity of 1 mg tablet 00:59: (three) [place] as 04 times Medical daily. Branch acetaZOLAMI 2018-0 Yes 300mg Take 300 U nivers DE 250 mg 6-08 mg by ity of tablet 00:59: mouth 2 [place] (two) Medical times Branch daily. vilazodone 2018-0 Yes 20mg Take 20 mg U nivers (VIIBRYD) 6-08 by mouth ity of 20 mg 00:59: daily. [place] [address] Medical Branch vortioxetin 2017-0 Yes Take by Uni vers e 10 mg Tab 6-08 mouth ity of 00:59: daily. [place] [address] Medical Branch topiramate 2017-0 Yes 25mg Take 25 mg U nivers (TOPAMAX) 6-08 by mouth ity of 25 mg 00:59: daily. [place] [address] Medical Branch magnesium 2018-0 Yes 400mg Take 400 Uni vers oxide 400 6-08 mg by ity of mg tablet 00:59: mouth [place] 04 daily. Medical Branch cholecalcif 2018-0 Yes 1000U Take 1,000 Univers hira, 6-08 Units by ity of vitamin D3, 00:59: mouth [place] (VITAMIN 04 daily. Medical D3) 1,000 Branch unit tablet POTASSIUM 2018-0 Yes 75mg 75 mg Univers CHLORIDE 6-08 daily. ity of MISC 00:59: Indication [place] 04 s: OTC Medical Branch clonazePAM 2018-0 Yes 1mg Take 1 mg Un leonarda (KLONOPIN) 6-08 by mouth 3 ity of 1 mg tablet 00:59: (three) [place] as 04 times Medical daily. Branch acetaZOLAMI 2018-0 Yes 300mg Take 300 U nivers DE 250 mg 6-08 mg by ity of tablet 00:59: mouth 2 [place] (two) Medical times Branch daily. vilazodone 2018-0 Yes 20mg Take 20 mg U nivers (VIIBRYD) 6-08 by mouth ity of 20 mg 00:59: daily. [place] [address] Medical Branch vortioxetin Yes Take by Uni vers e 10 mg Tab 6-08 mouth ity of 00:59: daily. [place] [facility] topiramate Yes 25mg Take 25 mg U nivers (TOPAMAX) 6-08 by mouth ity of 25 mg 00:59: daily. [place] tablet Medical Branch magnesium Yes 400mg Take 400 Uni vers oxide 400 6-08 mg by ity of mg tablet 00:59: mouth 04 daily. Medical Branch cholecalcif Yes 1000U Take 1,000 Univers hira, 6-08 Units by ity of vitamin D3, 00:59: mouth (VITAMIN 04 daily. Medical D3) 1,000 Branch unit tablet POTASSIUM Yes 75mg 75 mg Univers CHLORIDE 6-08 daily. ity of MISC 00:59: Indication s: OTC Medical Branch albuterol albuterol No 3mL TID albuterol [place] sulfate 2.5 sulfate 2.5 sulfate Communi mg/3 [...] for 30 days. albuterol albuterol No albuterol [place] sulfate HFA sulfate HFA sulfate Communi 90 90 HFA 90 ty mcg/actuati mcg/actuati mcg/actuat Hospita on aerosol on aerosol ion l inhaler inhaler aerosol Clinic s INHALE 2 INHALE 2 inhaler PUFFS BY PUFFS BY INHALE 2 MOUTH EVERY MOUTH EVERY PUFFS BY 4 TO 6 4 TO 6 MOUTH HOURS HOURS EVERY 4 TO 6 HOURS azithromyci azithromyci No azithromyc [place] n 250 mg n 250 mg in [...] THROUGH DAY 5 calcitriol calcitriol No calcitriol [place] 0.5 mcg 0.5 mcg 0.5 mcg Commun i capsule capsule capsule ty TAKE 1 TAKE 1 TAKE 1 Hospita CAPSULE BY CAPSULE BY CAPSULE BY l MOUTH 4 MOUTH 4 MOUTH 4 Clinic s TIMES DAILY TIMES DAILY TIMES FOR 90 DAYS FOR 90 DAYS DAILY FOR 90 DAYS fluocinonid fluocinonid No fluocinoni [place] e 0.05 % e 0.05 % de [...] FOR 30 DAYS methocarbam methocarbam No methocarba [place] ol 750 mg ol 750 mg mol 750 mg Communi tablet TAKE tablet TAKE tablet ty 1 TABLET BY 1 TABLET BY TAKE 1 Hospita MOUTH EVERY MOUTH EVERY TABLET BY l 8 HOURS 8 HOURS MOUTH Clinics EVERY 8 HOURS prednisone prednisone No 1dose prednisone [place] 10 mg 10 mg pk(s) 10 mg [...] for 6 days. calcitriol calcitriol No calcitriol [place] 0.5 mcg 0.5 mcg 0.5 mcg Commun i capsule capsule capsule ty TAKE 1 TAKE 1 TAKE 1 Hospita CAPSULE BY CAPSULE BY CAPSULE BY l MOUTH 4 MOUTH 4 MOUTH 4 Clinic s TIMES DAILY TIMES DAILY TIMES FOR 90 DAYS FOR 90 DAYS DAILY FOR 90 DAYS Valium 5 mg Valium 5 mg No Valium 5 [place] tablet Take tablet Take mg tablet Communi [...] foot. foot. closed MRI of left foot. Vital Signs Vital Name Observation Time Observation Value Comments Source BP Diastolic 2021-02-28 00:00:00 82 mm[Hg] [facility] s Height 2021-02-28 00:00:00 65 [in_i] [facility] s BMI (Body Mass 2021-02-28 00:00:00 44.6 kg/m2 [facility] s BP Systolic 2021-02-28 00:00:00 126 mm[Hg] [facility] s Body Weight 2021-02-28 00:00:00 4291.2 [oz_av] [facility] s BP Diastolic 2020-11-20 00:00:00 83 mm[Hg] [facility] Height 2020-11-20 00:00:00 65 [in_i] [facility] s BMI (Body Mass 2020-11-20 00:00:00 46 kg/m2 [facility] s BP Systolic 2020-11-20 00:00:00 137 mm[Hg] [facility] s Body Weight 2020-11-20 00:00:00 4425.6 [oz_av] [facility] s Systolic blood 2020-05-23 01:36:00 143 mm[Hg] Univer sity of [facility] Diastolic blood 2020-05-23 01:36:00 99 mm[Hg] Unive rsity of [facility] Heart rate 2020-05-23 01:36:00 94 /min [facility] Respiratory rate 2020-05-23 01:36:00 18 /min [facility] Oxygen saturation in 2020-05-23 01:36:00 100 /min [facility] Arterial blood by [facility] Pulse oximetry Branch Body temperature 2020-05-23 01:15:52 37 Loli [facility] Body height 2020-05-22 22:41:00 165.1 cm [facility] Body weight 2020-05-22 22:41:00 127.007 kg [facility] BMI 2020-05-22 22:41:00 46.59 kg/m2 [facility] Systolic blood 2020-05-23 01:36:00 143 mm[Hg] Univer sity pressure [facility] Diastolic blood 2020-05-23 01:36:00 99 mm[Hg] Unive [facility] Heart rate 2020-05-23 01:36:00 94 /min [facility] Respiratory rate 2020-05-23 01:36:00 18 /min [facility] Oxygen saturation in 2020-05-23 01:36:00 100 /min [facility] Arterial blood by [facility] Pulse oximetry [place] Body temperature 2020-05-23 01:15:52 37 Loli [facility] Body height 2020-05-22 22:41:00 165.1 cm [facility] Body weight 2020-05-22 22:41:00 127.007 kg [facility] BMI 2020-05-22 22:41:00 46.59 kg/m2 [facility] Procedures Procedure Date / Time Performing Clinician Source Performed XR, chest, 2 view 2020-11-20 00:00:00 [facility] CT ABDOMEN PELVIS W 2020-05-23 00:46:11 Dao Nicolas [facility] POCT TEST 2020-05-23 00:09:00 Dao Nicolas [facility] LIPASE 2020-05-22 23:59:00 Dao Nicolas [facility] COMP. METABOLIC PANEL 2020-05-22 23:59:00 Dao Nicolas [facility] ([id number]) [facility] CBC WITH DIFF 2020-05-22 23:59:00 Dao Nicolas [facility] URINALYSIS 2020-05-22 23:59:00 Dao Nicolas [facility] CONSENT/REFUSAL FOR 2020-05-22 22:30:18 Doctor Unassigned, [facility] DIAGNOSIS AND TREATMENT [place] [facility] AUTHORIZATION FOR RELEASE 2019-07-28 05:01:00 Doctor Unassigned, [facility] [place] [facility] Endoscopy 2015-05-11 00:00:00 [facility] Breast Biopsy 2015-05-11 00:00:00 [facility] Cholecystectomy 2012-05-11 00:00:00 [facility] Ear Tube [facility] Plan of Care Planned Activity Planned Date Details Comments Source Future Scheduled Test 2022-03-[address] [facility] 23:49:50 (1 of 3 - 3-dose series) [code = HEPATITIS B VACCINES (1 of 3 - 3-dose series)] Future Scheduled Test 2022-03-22 COVID-19 VACCINE (#1) [facility] 23:49:50 [code = COVID-19 VACCINE (#1)] Future Scheduled Test 2022-03-22 Screening for Metho [facility] 23:49:50 malignant neoplasm of cervix (procedure) [code = 752527414] Future Scheduled Test 2022-03-22 INFLUENZA VACCINE [facility] 23:49:50 [code = INFLUENZA VACCINE] Future Scheduled Test 2022-03-[address] [facility] 20:07:35 (1 of 3 - 3-dose series) [code = HEPATITIS B VACCINES (1 of 3 - 3-dose series)] Future Scheduled Test 2022-03-15 COVID-19 VACCINE (#1) [facility] 20:07:35 [code = COVID-19 VACCINE (#1)] Future Scheduled Test 2022-03-15 Pneumococcal Vaccine: [facility] 20:07:35 Pediatrics (0 to 5 Years) and At-Risk Patients (6 to 64 Years) (1 - PCV) [code = Pneumococcal Vaccine: Pediatrics (0 to 5 Years) and At-Risk Patients (6 to 64 Years) (1 - PCV)] Future Scheduled Test 2022-03-[address] [facility] 20:07:35 (procedure) [code = 872420268] Future Scheduled Test 2022-03-15 Screening for Metho [facility] 20:07:35 malignant neoplasm of cervix (procedure) [code = 001753935] Future Scheduled Test 2022-03-15 INFLUENZA VACCINE [facility] 20:07:35 [code = INFLUENZA VACCINE] Future Scheduled Test 2022-01-[address] [facility] 20:17:48 (1 of 3 - 3-dose series) [code = HEPATITIS B VACCINES (1 of 3 - 3-dose series)] Future Scheduled Test 2022-01-09 COVID-19 VACCINE (#1) [facility] 20:17:48 [code = COVID-19 VACCINE (#1)] Future Scheduled Test 2022-01-09 Pneumococcal Vaccine: [facility] 20:17:48 Pediatrics (0 to 5 Years) and At-Risk Patients (6 to 64 Years) (1 - PCV) [code = Pneumococcal Vaccine: Pediatrics (0 to 5 Years) and At-Risk Patients (6 to 64 Years) (1 - PCV)] Future Scheduled Test 2022-01-[address] [facility] 20:17:48 (procedure) [code = 070509572] Future Scheduled Test 2022-01-09 Screening for [facility] 20:17:48 malignant neoplasm of cervix (procedure) [code = 216580137] Future Scheduled Test 2022-01-09 INFLUENZA VACCINE [facility] 20:17:48 [code = INFLUENZA VACCINE] Diagnostic Test 2020-11-20 rapid SARS CoV 2 Ag, [facility] Pending 00:00:00 QL IA, respiratory Hospital Clinics specimen [code = rapid SARS CoV 2 Ag, QL [place], respiratory specimen] Diagnostic Test 2020-11-20 rapid strep group A, [facility] Pending 00:00:00 throat [code = rapid Hospita Clinics strep group A, throat] Diagnostic Test 2020-11-20 rapid flu (A+B) [code Swe [facility] Pending 00:00:00 = rapid flu (A+B)] Hospital Clinics Instructions [facility] Clinic s Encounters Start End Encounter Admission Attending Care Care Encounter Source Date/Time Date/Time Type Type Clinicians Facility Department ID 2021-03-09 Emergency [facility] [id number] Univers 16:53:19 [facility] 2020-08-29 Inpatient HuRosalva [facility] [id number] [facility] 12:58:27 50 [facility] 2021-02-28 2021-02-28 Outpatient [facility] [id number] [place] 10:39:00 10:39:00 _L 1021 Commun i ty Hospita l Clinics 2021-02-28 2021-02-28 Outpatient [facility] [id number] 00:00:00 00:00:00 , Nisa [id number] Hyacinth [id number] 2021-02-28 2021-02-28 Nisa Claros [facility] [place] - [place] [id number] [place] 00:00:00 [facility]00[facility]: [place] [address], [place] [address] , Ph. 2020-11-21 2020-11-21 Outpatient [facility] [place] 01:00:00 01:00:00 _L 0714 Commun i ty Hospita l [facility] 2020-11-20 2020-11-20 Outpatient [facility] [place] 06:10:00 06:10:00 _L 0713 Commun i ty Hospita l [facility] 2020-11-20 2020-11-20 Nisa Claros [facility] [place] - [place] [id number] [place] 00:00:00 00:00:00 [facility] BARBARA GrantC: Hospital - ty [address] [place] [address] [address], [place] [address] , Ph. 2020-11-20 2020-11-20 Outpatient [facility] [id number] 00:00:00 00:00:00 , Nisa [id number] Hyacinth [id number] 2020-05-22 2020-05-22 [facility] [id number] 16:43:00 20:04:00 Dao Kay [place] [id number] [place] [id number] [place] [id number] 2020-05-22 2020-05-22 Emergency [facility] [id number] [facility] 16:43:00 20:04:00 Dao Eliza [place] [id number] i ty of [place] 4.2.7.2.686 [place] [id number] [facility] 084 [place] 2020-05-22 2020-05-22 Orders Doctor ALFRED [id number] 00:00:00 00:00:00 Only Unassigned, MIKHAIL [id number] [place] [facility] [id number] [id number] [facility] 2020-05-22 2020-05-22 Orders Doctor ALFRED [id number] Univers 00:00:00 00:00:00 Only Unassigned, MIKHAIL [id number] ity of [place] [facility] [id number] Rami[place] as [phone] [facility] 009 Branch 2020-02-15 2020-02-15 Outpatient G_Pappas [facility] [id number] [place] 12:05:00 12:05:[address] [place] [address] Medical Group 2019-08-02 2019-08-02 Outpatient R [facility] [id number] Univers 18:40:00 18:40:00 ity of [facility] 2019-08-02 2019-08-02 Telephone [facility] [id number] 00:00:00 00:00:00 Deanna [facility] [id number] [place] [id number] Professio [phone] [place] [address] [address] 2019-08-02 2019-08-02 Telephone [facility] [id number] [facility] 00:00:00 00:00:00 Deanna Health [id number] it y of [place] [id number] Ramiro as Professio [phone] Me dical [address] Office [address] 2019-07-28 2019-07-28 Orders Doctor ALFRED [id number] 00:00:00 00:00:00 Only Unassigned, MIKHAIL [id number] [place] [facility] [id number] [id number] 2019-07-28 2019-07-28 Orders Doctor ALFRED [id number] Univers 00:00:00 00:00:00 Only Unassigned, MIKHAIL [id number] ity of [place] [facility] [id number] Ramiro as [phone] [facility] 009 [place] 2019-02-18 2019-02-21 Inpatient [facility] [id number] [place] 00:00:00 00:00:[address] Results Test Description Test Time Test Comments Results Result Comments Source SURGICAL PATH SPECIMENS 2020-09-11 08:10:00 Test Item Value Reference Range Interpretation Comme nts SURGICAL RUN DATE: [facility] 09/11/20 [facility] GE 1 RUN TIME: 0810 Specimen Inquiry RUN USER: INTERFACE SPECIMENS PATIENT: (test code LACI HALL [id number] LOC: [facility] U #: [id number] AGE/SX: 25/F ROOM: RE09/06/20REG DR: = SURG) Rosalva Norris MD : 95 BED: DIS: STATUS: NOEMY BOGGS Anastasia TLOC: SPEC #: [id number] RECD: 09/07/20-1 942 STATUS: STACEY MENDOZA #: [id number] EDWINA: 09/07/201941 SUBM DR: Rosalva Norris MD ENTERED: 09/10/20 SP TYPE: SURG SPEC OTHR DR: DOES_NOT KNOW No Primary or Family PhysicianORDERED: GROSS AND MICRO CODES: [id number] - TONSIL, NOS COPIES TO: DOES_NOT KNOW No [place] [id number] [facility] [address] [place] [address] PROCEDURES: GROSS AND MICRO (Incomplete) TISSUES: [...] sized and shaped reactive lymphoid follicles. MENA NUED ON NEXT PAGE RUN DATE: 09/11/20 [facility] GE 2 RUN TIME: 809 Specimen Inquiry RUN USER: INTERFACE SPEC #: [id number] PATIENT: LACI HALL #[id number] (Continued) POST-OP DIAGNOSIS Chronic to nsillitis and adenoiditis, chronic otitis media PRE-OP DIAGNOSIS Chronic tonsillitis and adenoiditis, chronic otitis media Signed SIGNATURE ON FILE Jorge Lindsay MD 09/11/20 0810 END OF REPORT Novel Coronavirus 2018 [id number] 08:22:00 Test Item Value Reference Range Interpretation [...] for the identification of SARS-CoV-2 RNA usingthe Miradore M2000 Sy stem under the FDA Emergen cy UseAuthorizatio n. The testing is perf ormed by personneltraine d in the procedures for the Miradore M2000 molecular diagnostic SARS-CoV-2 assa y in vitro. PROTHROMBIN [id number] 14:33:00 Test Item Value Reference Range Interpretation Comments PROTHROMBIN TIME 13.1 SECONDS 9.3-12.9 H PATIENT (test code = PTP) INTERNATIONAL NORMAL 1.2 0.8-1.2 N TARGE T INR BY RATIO (test code = INDICATIO [...] (to prevent recurrent infar ct). THROMBOPLASTIN TIME [id number] 14:33:00 Test Item Value Reference Range Interpretation Comments THROMBOPLASTIN TIME 31.5 Seconds 25.0-39.5 N Therape utic Range: PARTIAL (test code = 50.4 - 88.3 Seconds PTT) Effective 08/24/2018 CBC W/AUTO [id number] 14:32:00 Test Item Value Reference Range Interpretation [...] REQUIRED (test code NO = MDIFF) PROTHROMBIN [id number] 14:31:00 Test Item Value Reference Range Interpretation [...] (to prevent recurrent infar ct). THROMBOPLASTIN TIME [id number] 14:31:00 Test Item Value Reference Range Interpretation Comments THROMBOPLASTIN TIME PARTIAL (test Seconds 25.0-39.5 code = PTT) HCG SERUM [id number] 14:27:00 Test Item Value Reference Range Interpretation Comments HCG SERUM QUAL (test code = SERUM NEGATIVE NEGATIVE HCGQL) CT ABDOMEN PELVIS W [id number] 01:15:53 END OF REPORT Ordering Physician: DAO [...] gallbladder.5. No evidence of appendicitis. RL: [id number] [facility], Radiant Results Inft User - 05/22/2020 [...] No evidence of appendicitis.RL: 5611IMPRESSIONEND OF REPORT [facility] METABOLIC PANEL ([id number])2020-05-23 00:26:00 Test Item Value Reference Range Interpretation Comments NA (test code = 139 mmol/L 135-145 8810925668) K (test code = 4.2 mmol/L 3.5-5 8851791480) CL (test code = 104 mmol/L 98-108 6760761554) CO2 TOTAL (test code = 26 mmol/L 23-31 3717692484) AGAP (test code = 2-16 3914618513) BUN (test code = 13 mg/dL 7-23 1698007528) GLUCOSE (test code = 101 mg/dL 70-110 2252752733) CREATININE (test code = 0.56 mg/dL 0.5-1.04 7454914499) TOTAL BILI (test code = 0.6 mg/dL 0.1-1.0 6475802270) CALCIUM (test code = 7.4 mg/dL 8.6-10.6 L 5228054740) T PROTEIN (test code = 8.8 g/dL 6.3-8.2 H 2144610870) ALBUMIN (test code = 4.2 g/dL 3.5-5 2492096945) ALK PHOS (test code = 66 U/L 34-122 7560579527) ALTv (test code = 26 U/L 5-35 1742-6) AST(SGOT) (test code = 34 U/L 13-40 7051421305) eGFR Calculation mL/min/1.73m2 (Non-) (test code = 2920043568) eGFR Calculation mL/min/1.73m2 () (test code = 6242198915) LUDY (test code = LUDY) Association of [...] tests). Lab Interpretation Abnormal (test code = 58549-5) [id number] 00:26:00 Test Item Value Reference Range Interpretation Comments LIPASE (test code = 1957827894) 107 U/L 0-220 Lab Interpretation (test code = Normal 04136-4) [facility] CenterUrinalysis2021-[facility]-13 00:24:00 Test Item Value Reference Range Interpretation Comments APPEARANCE (test code = Hazy Clear A 7287611493) COLOR (test code = Yellow Yellow 6715499132) PH (test code = 4.8-8.0 5769180839) SP GRAVITY (test code = 1.003-1.030 0977495697) GLU U QUAL (test code = Normal Normal 8500265180) BLOOD (test code = Negative Negative 2372601957) KETONES (test code = Negative Negative 6079388959) PROTEIN (test code = Negative Negative 2887-8) UROBILIN (test code = Normal Normal 9092121021) BILIRUBIN (test code = Negative Negative 2190497713) NITRITE (test code = Negative Negative 9260042363) LEUK MARCIN (test code = Negative Negative 0591133640) RBC/HPF (test code = <1 See_Comment [Autom ated message] 0777913698) The system [employer] generated this result transmitted ref erence range: 0 - 3 HP F. The reference range was not used to int erpret this result as normal/abnormal . WBC/HPF (test code = See_Comment [Autom ated message] 4851926987) The system [employer] generated this result transmitted ref erence range: 0 - 5 HP F. The reference range was not used to int erpret this result as normal/abnormal . BACTERIA (test code = Negative Negative 8435134413) MUCOUS (test code = Slight Negative LPF A 1987126439) SQ EPITH (test code = HPF 1705018813) Lab Interpretation (test Abnormal code = 85883-9) [facility] with [id number] 00:12:00 Test Item Value Reference Range Interpretation Comments WBC (test code = See_Comment [Automated message] 6690-2) The system [employer] generated this result transmitted ref erence range: 4.30 - 1 1.10 10*3/?L. The re ference range was not u sed to interpret this result as normal/abnor mal. RBC (test code = See_Comment [Automated message] 119-8) The system [employer] generated this result transmitted ref erence range: [...] RDW-SD (test code 40.4 fL 39-49.9 = 27291-4) RDW-CV (test code 13.0 % 12-15.5 = 788-0) PLT (test code = See_Comment [Automated message] 777-3) The system [employer] generated this result transmitted ref erence range: 166 - 35 8 10*3/?L. The re ference range was not u sed to interpret this result as normal/abnor mal. MPV (test code = 10.6 fL 9.5-12.9 88366-0) NRBC/100 WBC (test See_Comment [Automat ed message] code = 2740892432) The [employer] which generated this result transmitted ref erence range: 0.0 - 10 .0 /100 WBCs. The refer ence range was not u sed to interpret this result as normal/abnor mal. NRBC x10^3 (test <0.01 See_Comment [Automated message] code = 0582423258) The syste m which generated this result transmitted ref erence range: 10*3/?L. The reference range was not used to interpr et this result as normal/abnormal . GRAN MAT (NEUT) % 57.7 % (test code = 770-8) IMM GRAN % (test 0.40 % code = 0729021216) LYMPH % (test code 32.1 % = 736-9) MONO % (test code 7.4 % = 5905-5) EOS % (test code = 2.1 % 713-8) BASO % (test code 0.3 % = 706-2) GRAN MAT 4.61 10*3/uL 1.88-7.09 x10^3(ANC) (test code = 1100119227) IMM GRAN x10^3 0.03 10*3/uL 0-0.06 (test code = 7824125689) LYMPH x10^3 (test 2.56 10*3/uL 1.32-3.29 code = 731-0) MONO x10^3 (test 0.59 10*3/uL 0.33-0.92 code = 742-7) EOS x10^3 (test 0.17 10*3/uL 0.03-0.39 code = 711-2) BASO x10^3 (test <0.03 0.01-0.07 code = 704-7) [facility]PO[facility] [id number] 00:09:00 Test Item Value Reference Range Interpretation Comments POCT PREG (test code = 1605) negative On board controls acceptable with present C Line (test code = 3574) POCT PREG LOT # (test code = 3575) [id number] POCT PREG TEST DATE (test 01/08/2022 code = 3576) Lab Interpretation (test code = Normal 59426-7) [facility]
--- NOTE | 2022-03-23 14:09 | EDPHYS ---
Physician Documentation [facility] Name: Letty Hall Age: 26 yrs Sex: Female : 1995 Arrival Date: 03/23/2022 Time: 12:47 Bed IW2 Private MD: KARAN Physician Zi Cerna HPI: 03/23 14:06 This 26 yrs old Female presents to ER via Ambulatory with complaints of Abnormal Lab kb Results. 14:06 The patient presents to the emergency department with vaginal bleeding. kb course: care: at a clinic, Leakage of Fluid: none appreciated, Ultrasound: the patient has not had an ultrasound, Risk/complications: no obvious risks or complications are appreciated. Previous pregnancies: in previous pregnancies patient has had. Associated signs and symptoms: Pertinent positives: vaginal bleeding. The patient has not experienced similar symptoms in the past. The patient has been recently seen at the [facility] Emergency Department. Pt reports spotting that started a week ago. Was seen here and told to return for repeat Hcg test. States spotting has gotten better since last visit. . 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 - Social history:: Smoking status: Patient reports the use of cigarette tobacco products, smokes one-half pack cigarettes per day. ROS: 14:06 Constitutional: Negative for fever, chills, and weight loss. kb 14:06 : Positive for vaginal bleeding. 14:06 All other systems are negative. Exam: 14:06 Constitutional: This is a well developed, well nourished patient who is awake, alert, kb and in no acute distress. Head/Face: Normocephalic, atraumatic. ENT: Moist Mucous membranes Cardiovascular: Regular rate and rhythm with a normal S1 and S2. No gallops, murmurs, or rubs. No pulse deficits. Respiratory: Respirations even and unlabored. No increased work of breathing. Talking in full sentences Abdomen/GI: Soft, non-tender. No distention Skin: Warm, dry with normal turgor. Normal color. MS/ Extremity: Pulses equal, no cyanosis. Neurovascular intact. Full, normal range of motion. Neuro: Awake and alert, GCS 15, oriented to person, place, time, and situation. Moves all extremities. Normal gait. Psych: Awake, alert, with orientation to person, place and time. Behavior, mood, and affect are within normal limits. Vital Signs: 13:02 BP 118 / 83; Pulse 107; Resp 15; Temp 97.2(TE); Pulse Ox 100% on R/A; Weight 123.83 kg; ss Height 5 ft. 5 in. (165.10 cm); Pain 0/10; 13:02 Body Mass Index 45.43 (123.83 kg, 165.10 cm) ss MDM: 13:10 Patient medically screened. kb 14:06 Data reviewed: vital signs, nurses notes. Data interpreted: Pulse oximetry: on room air kb is 100 %. Interpretation: normal. Counseling: I had a detailed discussion with the patient and/or guardian regarding: the historical points, exam findings, and any diagnostic results supporting the discharge/admit diagnosis, lab results, the need for outpatient follow up, an OB/Gyne specialist, to return to the emergency department if symptoms worsen or persist or if there are any questions or concerns that arise at home. 03/23 13:05 Order name: HCG-Quantitative; Complete Time: 13:41 ss Administered Medications: No medications were administered Disposition Summary: 03/23/22 14:08 Discharge Ordered Location: Home kb Condition: Stable kb Diagnosis - Threatened kb Followup: kb - With: Emergency Department - When: As needed - Reason: Worsening of condition Followup: kb - With: Private Physician - When: 2 - 3 days - Reason: Recheck today's complaints, Continuance of care, Re-evaluation by your physician Discharge Instructions: - Discharge Summary Sheet kb - Threatened Miscarriage, [id number] kb - Vaginal Bleeding During , First Trimester, Swxl-fs-Mlam kb Forms: - Medication Reconciliation Form kb - Thank You Letter kb - Antibiotic Education kb - Prescription Opioid Use kb Addendum: 03/27/2022 09:42 Co-signature as Attending Physician, Zi Cerna MD I agree with the assessment and c prieto plan of care. Signatures: Dispatcher [employer] Kathy Teague, ART MANAGER-C JANAE-Zi Horton MD MD cha Smirch, Shelby, RN RN ss
--- NOTE | 2022-03-23 14:09 | ER ---
Nurse's Notes [facility] Name: Letty Hall Age: 26 yrs Sex: Female : 1995 Arrival Date: 03/23/2022 Time: 12:47 Bed IW2 Private MD: Diagnosis: Threatened Presentation: 03/23 13:02 Chief complaint: Patient states: HCG redraw. Coronavirus screen: Client denies travel ss out of the [place] in the last 14 days. Ebola Screen: Patient denies exposure to infectious person. Patient denies travel to an Ebola-affected area in the 21 days before illness onset. Initial Sepsis Screen: Does the patient meet any 2 criteria? No. Patient's initial sepsis screen is negative. Does the patient have a suspected source of infection? No. Patient's initial sepsis screen is negative. Risk Assessment: Do you want to hurt yourself or someone else? Patient reports no desire to harm self or others. Onset of symptoms is unknown. 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 - Social history:: Smoking status: Patient reports the use of cigarette tobacco products, smokes one-half pack cigarettes per day. Vital Signs: 13:02 BP 118 / 83; Pulse 107; Resp 15; Temp 97.2(TE); Pulse Ox 100% on R/A; Weight 123.83 kg; ss Height 5 ft. 5 in. (165.10 cm); Pain 0/10; 13:02 Body Mass Index 45.43 (123.83 kg, 165.10 cm) ED Course: 12:47 Patient arrived in ED. am2 13:03 Triage completed. ss 13:03 Kathy Beebe FNP-C [facility] kb 13:03 Zi Cerna MD is Attending Physician. kb 13:03 Arm band placed on right wrist. ss Administered Medications: No medications were administered Outcome: 14:08 Discharge ordered by . shila 14:08 Patient left the ED. shila Signatures: Kathy Beebe FNP-C FNP-Ckb Smirch, Shelby, NYA RN Karla White
[2022-03-23 14:37] VITALS: BP 118/83; TEMP 97.2; O2SAT 100
== END 2022-03-23 14:08 | disposition home or self-care (01) ==
LOC: ER 12:45
DX: O20.0 Threatened abortion (principal); I10 Essential (primary) hypertension; F17.210 Nicotine dependence, cigarettes, uncomplicated; Z88.3 Allergy status to other anti-infective agents; Z88.5 Allergy status to narcotic agent
CPT/HCPCS: 36415; 84702; 99281

== ENCOUNTER 2022-03-25 18:14 | Emergency (ER) | payer OTHER ==
--- OUTSIDE RECORDS SUMMARY | 2022-03-25 18:19 | XMS REPORT | Continuity of Care Document ---
:1995 Author Organization [facility] t Address [address] [place] [place] [address] Care Team Providers Name Role Phone Louis Rahman MD, Jer Primary Care Physician [phone] Rosalva Norris Attending Clinician Unavailable KOKI SOTO Attending Clinician Unavailable PENNIE_Delvin Attending Clinician Unavailable Nisa Brown Attending Clinician [phone] Sivan JANAEDao Attending Clinician Doctor Unassigned, [place] Attending Clinician Unavailable Humberto Attending Clinician Unavailable Deanna Anthony Attending Clinician SANDEEP HOSKINS Attending Clinician Unavailable KELLY Admitting Clinician Unavailable Dotty_Kenia Admitting Clinician Unavailable YAYA SPICER Admitting Clinician Unavailable Payers Payer Name Policy Type Policy Number Effective Date Expiration Date S jeremy [place] - [id number] [place] [phone] ([facility]) [place] - WOMEN'S [id number] HEALTH PROGRAM (MEDICAID) Problems Condition Condition Condition Status Onset Resolution Last Treating Co mments Source Name Details Category Date Date Treatment Clinician Date Pain in Pain in Problem Active [place] throat Throat 7-13 Communi 00:00: ty 00 Hospita Clinics Fever Fever Problem Active [place] 7-13 Communi 00:00: ty [facility] Wheezing Wheezing Problem Active [place] 7-13 Communi 00:00: ty 00 Hospita Clinics COVID-19 Covid-19 Problem Active [place] 7-13 Communi 00:00: ty 00 Hospita Clinics Mastoiditi Mastoiditi Disease Active U nivers s of both s of both 6-07 ity of sides sides 00:00: [address] Branch 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 [...] Obesity Obesity Disease Active Univers (BMI (BMI 7- ity of 30-39.9) 30-39.9) 00:00: Medical Branch Blurred Blurred Disease Active Univers vision vision 1-15 ity of 00:00: [place] Allergies, Adverse Reactions, Alerts Allergy Allergy Status Severity Reaction(s) Onset Inactive Treating Comm ents Source Name Type Date Date Clinician haloperi DA Active [place] [facility] dol 4-27 Clear 00:00: 00 [facility] vancomyc DA Active [place] [facility] in 427 Clear 00:00: 00 [facility] haloperi DA Active [place] [facility] dol 4-27 Clear 00:00: 00 [facility] vancomyc DA Active [place] [facility] in 427 Clear 00:00: 00 [facility] Haloperi Propensi Active Anaphylaxis U nivers dol ty to 5 ity of Lactate adverse 00:00: [place] reaction [facility] HALOPERI DRUG Active Anaphylaxis Uni vers DOL INGREDI 5 ity of LACTATE 00:00: [facility] Haloperi Propensi Active 2016-05 Method i dol [...] ity of adverse 00:00: [place] reaction Medical [facility] Vancomyc Propensi Active Unknown - "gives me Univers in ty to See comments 12-05 [place] ity of adverse 00:00: syndrome" [place] reaction Medical [facility] MORPHINE DRUG Active Other-Cmnt Univ ers INGREDI 12-05 ity of 00:00: [place] [facility] [place] VANCOMYC DRUG Active Unknown-Cmnt Un leonarda IN [facility] 7 ity of 00:00: [place] 00 [facility] HALDOL Allergy Active Moderate Other [place] to [facility] ty e Hospita l Clinics Vancomyc Allergy Active Moderate Other [place] in to [facility] ty e Hospita l Clinics Family History Family Member Diagnosis Comments Start Date Stop Date Source Maternal aunt Depression [facility] ospital Maternal aunt [facility] Natural mother Depression [facility] Natural mother Suicide Attempts [facility] Social History Social Habit Start Date Stop Date Quantity Comments Source Exposure to Yes University of SARS-CoV-2 (event) [facility] History of tobacco Cigarette Smoker University of use [facility] Tobacco use and 2020-05-22 2020-05-22 Current user Univers ity of exposure 00:00:00 00:00:00 [facility] Cigarettes smoked 2020-05-22 2020-05-22 Univers ity of current (pack per 00:00:00 00:00:00 [facility] ) - Reported Branch Alcohol intake 2019-02-20 2019-02-20 Current drinker [facility] 00:00:00 00:00:00 of alcohol [facility] (finding) Alcohol Comment 2019-02-19 2019-02-19 drinks casually, Met hodist 00:00:00 00:00:00 once a month, 3 Hospital X a year Sex Assigned At [birth year] Jain 00:00:00 00:00:00 Hospital Smoking Status Start Date Stop Date Source Heavy Tobacco Smoker [facility] [place] [facility] Current every day smoker 2020-05-22 00:00:00 Uni versity of [facility] Medications Ordered Filled Start Stop Current Ordering Indication Dosage Frequency Signature Comments Components Source Medication Medication Date Date Medication? Clinician (SIG) Name Name HYDROcodone 2020- No 1{tbl} 1 tablet, Univers -acetaminop 05-23 Oral, ity of hen (NORCO 02:30: 01:27 ONCE, 1 [place] as 5) 5-325 mg 00 :00 dose, Tue Med ical tablet 1 05/22/20 at Bran h tablet 2030, LAMIN iohexol No 120mL 120 mL, Unive rs (OMNIPAQUE 05-23 Intravenou it y of 350 01:00: 00:38 s, ONCE, 1 [place] BULK-100 00 :00 dose, Tue Medica l mL) 05/22/20 at Branch injection 1900, 120 mL Routine NaCl 0.9% 2020- No 1000mL at 999 Uni vers (NS) bolus 05-22-13 mL/hr, ity of infusion 23:30: 01:55 1,000 mL, Rami[place] as 1,000 mL 00 :00 IV Medical Infusion, Branch ONCE, 1 dose, 05/22/20 at 1730, LAMIN dicyclomine Yes [id number] 10mg Take 1 Univers (BENTYL) 10 1-12 capsule by it y of mg capsule 00:00: mouth 4 [place] (four) Medical times Branch daily as needed for Abdominal pain. ondansetron Yes [id number] 4mg Take 1 Univers 4 mg 1-12 [...] 2018-05 Yes 1000U QD Take 1,000 Methodi ihra, 0-14 Units by vitamin D3, 17:06: mouth Hospi ta (VITAMIN 45 daily. l D3) 1,000 unit tablet GUAIFENESIN 2017-05 Yes Take by Uni vers ORAL 0-03 mouth. ity of 20:28: [address] 2017-05 Yes Take by Uni vers ORAL 0-03 mouth. ity of 20:28: [address] 2017-05 Yes Take by Uni vers ORAL 0-03 mouth. ity of 20:28: [address] 2017-05 Yes Take by Uni vers ORAL 0-03 mouth. ity of 20:28: [address] CALCIUM 2017-05 Yes 2500mg Take 2,500 [...] by ity of tablet 00:59: mouth 2 [place] [address] (two) Medical times Branch daily. vilazodone 2018-0 Yes 20mg Take 20 mg U nivers (VIIBRYD) 6-08 by mouth ity of 20 mg 00:59: daily. [address] Branch vortioxetin 2017-0 Yes Take by Uni vers e 10 mg Tab 6-08 mouth ity of 00:59: daily. [address] Branch topiramate 2017-0 Yes 25mg Take 25 mg U nivers (TOPAMAX) 6-08 by mouth ity of 25 mg 00:59: daily. [address] Branch magnesium 2017-0 Yes 400mg Take 400 [...] 6-08 daily. ity of MISC 00:59: Indication [place] [address] s: OTC Medical Branch clonazePAM 2018-0 Yes 1mg Take 1 mg Un leonarda (KLONOPIN) 6-08 by mouth 3 ity of 1 mg tablet 00:59: (three) [place] as 04 times Medical daily. Branch acetaZOLAMI 2018-0 Yes 300mg Take 300 U nivers DE 250 mg 6-08 mg by ity of tablet 00:59: mouth 2 [place] 04 (two) Medical times Branch daily. vilazodone 2018-0 Yes 20mg Take 20 mg U nivers (VIIBRYD) 6-08 by mouth ity of 20 mg 00:59: daily. [address] vortioxetin 2017-0 Yes Take by Uni vers e 10 mg Tab 6-08 mouth ity of 00:59: daily. [place] 04 Medical Branch topiramate 2018-0 Yes 25mg Take 25 mg U nivers (TOPAMAX) 6-08 by mouth ity of 25 mg 00:59: daily. [place] tablet Medical Branch magnesium 2018-0 Yes 400mg [...] 6-08 daily. ity of MISC 00:59: Indication [place] [address] s: OTC Medical Branch clonazePAM 2017-0 Yes [...] mouth ity of 20 mg 00:59: daily. [place] [address] Medical Branch vortioxetin 0 Yes Take by Uni vers e 10 mg Tab 6-08 mouth ity of 00:59: daily. [place] [address] Medical Branch topiramate 2017-0 Yes 25mg Take 25 mg U nivers (TOPAMAX) 6-08 by mouth ity of 25 mg 00:59: daily. [place] tablet Medical Branch magnesium 2018-0 Yes 400mg Take 400 Uni vers oxide 400 6-08 mg by ity of mg tablet 00:59: mouth [place] 04 daily. Medical Branch cholecalcif 0 Yes 1000U Take 1,000 Univers ihra, 6-08 Units by ity of vitamin D3, 00:59: mouth [place] (VITAMIN 04 daily. Medical D3) 1,000 Branch unit tablet POTASSIUM 2018-0 Yes 75mg 75 mg Univers CHLORIDE 6-08 daily. ity of MISC 00:59: Indication [place] [address] s: OTC Medical Branch clonazePAM 2017-0 Yes [...] mouth ity of 20 mg 00:59: daily. [place] [address] Medical Branch vortioxetin 2017-0 Yes Take by Uni vers e 10 mg Tab 6-08 mouth ity of 00:59: daily. [place] [address] Medical Branch topiramate 2018-0 Yes 25mg Take 25 mg U nivers (TOPAMAX) 6-08 by mouth ity of 25 mg 00:59: daily. [place] [address] Medical Branch magnesium 2017-0 Yes 400mg Take [...] Branch albuterol albuterol No 3mL TID albuterol [place] sulfate 2.5 sulfate 2.5 sulfate Communi mg/3 [...] for 30 days. albuterol albuterol No albuterol [place] sulfate HFA sulfate HFA sulfate Communi 90 90 HFA 90 ty mcg/actuati mcg/actuati mcg/actuat Hospita on aerosol on aerosol ion l inhaler inhaler aerosol Clinic s INHALE 2 INHALE 2 inhaler PUFFS BY PUFFS BY INHALE 2 MOUTH EVERY MOUTH EVERY PUFFS BY 4 TO 6 4 TO 6 MOUTH HOURS HOURS EVERY 4 TO 6 HOURS azithromyci azithromyci No azithromyc [place] n 250 mg n 250 mg in [...] THROUGH DAY 5 calcitriol calcitriol No calcitriol [place] 0.5 mcg 0.5 mcg 0.5 mcg Commun i capsule capsule capsule ty TAKE 1 TAKE 1 TAKE 1 Hospita CAPSULE BY CAPSULE BY CAPSULE BY l MOUTH 4 MOUTH 4 MOUTH 4 Clinic s TIMES DAILY TIMES DAILY TIMES FOR 90 DAYS FOR 90 DAYS DAILY FOR 90 DAYS fluocinonid fluocinonid No fluocinoni [place] e 0.05 % e 0.05 % de [...] FOR 30 DAYS methocarbam methocarbam No methocarba [place] ol 750 mg ol 750 mg mol 750 mg Communi tablet TAKE tablet TAKE tablet ty 1 TABLET BY 1 TABLET BY TAKE 1 Hospita MOUTH EVERY MOUTH EVERY TABLET BY l 8 HOURS 8 HOURS MOUTH Clinics EVERY 8 HOURS prednisone prednisone No 1dose prednisone [place] 10 mg 10 mg pk(s) 10 mg [...] for 6 days. calcitriol calcitriol No calcitriol [place] 0.5 mcg 0.5 mcg 0.5 mcg Commun i capsule capsule capsule ty TAKE 1 TAKE 1 TAKE 1 Hospita CAPSULE BY CAPSULE BY CAPSULE BY l MOUTH 4 MOUTH 4 MOUTH 4 Clinic s TIMES DAILY TIMES DAILY TIMES FOR 90 DAYS FOR 90 DAYS DAILY FOR 90 DAYS Valium 5 mg Valium 5 mg No Valium 5 [place] tablet Take tablet Take mg tablet Communi [...] Source BP Diastolic 2021-02-28 00:00:00 82 mm[Hg] [facility] s Height 2021-02-28 00:00:00 65 [in_i] [facility] s BMI (Body Mass 2021-02-28 00:00:00 44.6 kg/m2 [facility]) [facility] Clinic s BP Systolic 2021-02-28 00:00:00 126 mm[Hg] [facility] s Body Weight 2021-02-28 00:00:00 4291.2 [oz_av] [facility] s BP Diastolic 2020-11-20 00:00:00 83 mm[Hg] [facility] s Height 2020-11-20 00:00:00 65 [in_i] [facility] s BMI (Body Mass 2020-11-20 00:00:00 46 kg/m2 [facility]) [facility] Clinic s BP Systolic 2020-11-20 00:00:00 137 mm[Hg] [facility] s Body Weight 2020-11-20 00:00:00 4425.6 [oz_av] [facility] s Systolic blood 2020-05-23 01:36:00 143 mm[Hg] Univer sity of pressure [facility] Diastolic blood 2020-05-23 01:36:00 99 mm[Hg] Unive [facility] Heart rate 2020-05-23 01:36:00 94 /min Universi ty of [place] [facility] Respiratory rate 2020-05-23 01:36:00 18 /min [facility] ersity of [facility] Oxygen saturation in 2020-05-23 01:36:00 100 /min University of Arterial blood by [facility] Pulse oximetry Branch Body temperature 2020-05-23 01:15:52 37 Loli [facility] ersity of [place] [facility] [place] Body height 2020-05-22 22:41:00 165.1 cm Universi ty of [place] [facility] [place] Body weight 2020-05-22 22:41:00 127.007 kg Universi ty of [facility] BMI 2020-05-22 22:41:00 46.59 kg/m2 Universi ty of [facility] Systolic blood 2020-05-23 01:36:00 143 mm[Hg] Univer sity of [facility] Diastolic blood 2020-05-23 01:36:00 99 mm[Hg] Unive rsity of [facility] Heart rate 2020-05-23 01:36:00 94 /min Universi ty [facility] [place] [facility] Respiratory rate 2020-05-23 01:36:00 18 /min [facility] Oxygen saturation in 2020-05-23 01:36:00 100 /min University of Arterial blood by [facility] Pulse oximetry Branch Body temperature 2020-05-23 01:15:52 37 Loli [facility] height 2020-05-22 22:41:00 165.1 cm Universi ty [facility] [place] [facility] [place] Body weight 2020-05-22 22:41:00 127.007 kg Universi ty of [facility] BMI 2020-05-22 22:41:00 46.59 kg/m2 Universi ty [facility] Procedures Procedure Date / Time Performing Clinician Source Performed XR, chest, 2 view 2020-11-20 [facility]BD[facility] PELVIS W 2020-05-23 00:46:11 [facility]ao [facility] 2020-05-23 00:09:00 Dao Nicolas [facility] ity [facility] Branch LIPASE 2020-05-22 23:59:[address] [facility] COMP. METABOLIC PANEL 2020-05-22 23:59:00 Dao Nicolas [facility] ([id number]) [facility] [place] CBC WITH DIFF 2020-05-22 23:59:[address] [facility] URINALYSIS 2020-05-22 23:59:[address] [facility] CONSENT/REFUSAL FOR 2020-05-22 22:30:18 Doctor Unasssenia [facility] DIAGNOSIS AND TREATMENT [place] [facility] AUTHORIZATION FOR RELEASE 2019-07-28 05:01:00 Doctor Unassigned, [facility] [place] [facility] Endoscopy 2015-05-11 00:00:00 [facility] Breast Biopsy 2015-05-11 00:00:00 Count includes the [facility] Cholecystectomy 2012-05-11 00:00:00 [facility] Ear Tube [facility] Plan of Care Planned Activity Planned Date Details Comments Source Future Scheduled Test 2022-03-22 HEPATITIS B VACCINES [facility] 23:49:50 (1 of 3 - 3-dose series) [code = HEPATITIS B VACCINES (1 of 3 - 3-dose series)] Future Scheduled Test 2022-03-22 COVID-19 VACCINE (#1) [facility] 23:49:50 [code = COVID-19 VACCINE (#1)] Future Scheduled Test 2022-03-[address] [facility] 23:49:50 malignant neoplasm of cervix (procedure) [code = 441636494] Future Scheduled Test 2022-03-22 INFLUENZA VACCINE [facility] 23:49:50 [code = INFLUENZA VACCINE] Future Scheduled Test 2022-03-22 HEPATITIS B VACCINES [facility] 23:49:50 (1 of 3 - 3-dose series) [code = HEPATITIS B VACCINES (1 of 3 - 3-dose series)] Future Scheduled Test 2022-03-22 COVID-19 VACCINE (#1) [facility] 23:49:50 [code = COVID-19 VACCINE (#1)] Future Scheduled Test 2022-03-[address] [facility] 23:49:50 malignant neoplasm of cervix (procedure) [code = 006190261] Future Scheduled Test 2022-03-22 INFLUENZA VACCINE [facility] 23:49:50 [code = INFLUENZA VACCINE] Future Scheduled Test 2022-03-15 Pneumococcal Vaccine: [facility] 20:07:35 Pediatrics (0 to 5 Years) and At-Risk Patients (6 to 64 Years) (1 - PCV) [code = Pneumococcal Vaccine: Pediatrics (0 to 5 Years) and At-Risk Patients (6 to 64 Years) (1 - PCV)] Future Scheduled Test 2022-03-15 Hepatitis C screening [facility] 20:07:35 (procedure) [code = 137004575] Future Scheduled Test 2022-03-[address] [facility] 20:07:35 malignant neoplasm of cervix (procedure) [code = 047665558] Future Scheduled Test 2022-03-15 INFLUENZA VACCINE [facility] 20:07:35 [code = INFLUENZA VACCINE] Future Scheduled Test 2022-03-15 HEPATITIS B VACCINES [facility] 20:07:35 (1 of 3 - 3-dose series) [code = HEPATITIS B VACCINES (1 of 3 - 3-dose series)] Future Scheduled Test 2022-03-15 COVID-19 VACCINE (#1) [facility] 20:07:35 [code = COVID-19 VACCINE (#1)] Future Scheduled Test 2022-01-09 HEPATITIS B VACCINES [facility] 20:17:48 (1 of 3 - 3-dose series) [code = HEPATITIS B VACCINES (1 of 3 - 3-dose series)] Future Scheduled Test 2022-01-09 COVID-19 VACCINE (#1) [facility] 20:17:48 [code = COVID-19 VACCINE (#1)] Future Scheduled Test 2022-01-09 Pneumococcal Vaccine: [facility] 20:17:48 Pediatrics (0 to 5 Years) and At-Risk Patients (6 to 64 Years) (1 - PCV) [code = Pneumococcal Vaccine: Pediatrics (0 to 5 Years) and At-Risk Patients (6 to 64 Years) (1 - PCV)] Future Scheduled Test 2022-01-09 Hepatitis C screening [facility] 20:17:48 (procedure) [code = 453583352] Future Scheduled Test 2022-01-09 [facility] 20:17:48 malignant neoplasm of cervix (procedure) [code = 446433359] Future Scheduled Test 2022-01-09 INFLUENZA VACCINE [facility] 20:17:48 [code = INFLUENZA VACCINE] Diagnostic Test 2020-11-20 rapid strep group A, [facility] Pending 00:00:00 throat [code = rapid Hospita Clinics strep group A, throat] Diagnostic Test 2020-11-20 rapid flu (A+B) [code Swe [facility] Pending 00:00:00 = rapid flu (A+B)] Hospital Clinics Diagnostic Test 2020-11-20 rapid SARS CoV 2 Ag, [facility] Pending 00:00:00 QL [place], respiratory Hospital Clinics specimen [code = rapid SARS CoV 2 Ag, QL [place], respiratory specimen] Instructions [facility] Hospital Clinic s Encounters Start End Encounter Admission Attending Care Care Encounter Source Date/Time Date/Time Type Type Clinicians Facility Department ID 2021-03-09 Emergency [facility] [id number] Univers 16:53:19 [facility] 2020-08-29 Inpatient Rosalva Norris [facility] [id number] [facility] 12:58:27 50 [facility] 2021-02-28 2021-02-28 Outpatient [facility] [place] 10:39:00 10:39:00 _L 1021 Commun i ty Hospita [facility] 2021-02-28 2021-02-28 Outpatient [facility] d5a [id number] 00:00:00 00:00:00 , Nisa [id number] Hyacinth [id number] 2021-02-28 2021-02-28 Nisa Claros [facility] [place] - [place] 202 [id number] [place] 00:00:00 00:00:00 [facility] SABRA [facility]: Hospital - ty [address] [facility] [address], [place] [address] , Ph. 2020-11-21 2020-11-21 Outpatient [facility] 107 [place] 01:00:00 01:00:00 _L 0714 Commun i ty Hospita [facility] 2020-11-20 2020-11-20 Outpatient [facility] 107 [place] 06:10:00 06:10:00 _L 0713 Commun i ty Hospita l Clinics 2020-11-20 2020-11-20 Outpatient [facility] 58a [id number] 00:00:00 00:00:00 , Nisa [id number] Hyacinth [id number] 2020-11-20 2020-11-20 Nisa Claros [facility] [place] - [place] 202 [address] [place] 00:00:00 00:00:00 [facility] ALTAGRACIA engel-C: Hospital - ty [address] [facility] [address], [place] [address] , Ph. 2020-05-22 2020-05-22 Emergency [facility] [id number] 16:43:00 20:04:00 Dao Abdullahi [id number] [place] [id number] [place] [id number] [facility] 2020-05-22 2020-05-22 Emergency [facility] [id number] [facility] 16:43:00 20:04:00 Dao Abdullahi [id number] i ty of [place] 4.2.7.2.686 [facility] [id number] [address] 2020-05-22 2020-05-22 Orders Doctor ALFRED [id number] 00:00:00 00:00:00 Only Unassigned, MIKHAIL [id number] [place] [facility] 4.2.7.2.686 [id number] 2020-05-22 2020-05-22 Orders Doctor ALFRED [id number] Univers 00:00:00 00:00:00 Only Unassigned, MIKHAIL [id number] ity of [place] [facility] [id number] Ramiro as [id number] [address] 2020-02-15 2020-02-15 Outpatient G_Pappas [facility] [id number] [place] 12:05:00 12:05:00 1007 [facility] 2019-08-02 2019-08-02 Outpatient [facility] [id number] Univers 18:40:00 18:40:00 ity of [facility] 2019-08-02 2019-08-02 Telephone [facility] [id number] 00:00:00 00:00:00 [facility] [id number] [place] [id number] Professio [phone] [place] [address] Office [facility] 2019-08-02 2019-08-02 Telephone [facility] [id number] [facility] 00:00:00 00:00:00 Deanna [facility] [id number] it y of [place] 4.2.7.2.686 Ramiro as Professio [phone] Ar dical [address] Office [facility] 2019-07-28 2019-07-28 Orders Doctor ALFRED [id number] 00:00:00 00:00:00 Only Unassigned, MIKHAIL [id number] [facility] [id number] [facility] 2019-07-28 2019-07-28 Orders Doctor ALFRED [id number] Univers 00:00:00 00:00:00 Only Unassigned, MIKHAIL [id number] [facility] [id number] Ramiro as [phone] [address] 2019-02-18 2019-02-21 Inpatient SANDEEP HOSKINS [facility] [id number] [place] 00:00:00 00:00:[address] Results Test Description Test Time Test Comments Results Result Comments Source SURGICAL PATH SPECIMENS 2020-09-11 08:10:00 Test Item Value Reference Range Interpretation Comme nts SURGICAL RUN DATE: PATH 09/11/20 [place] - LAB P AGE 1 RUN TIME: 809 Specimen Inquiry RUN USER: INTERFACE SPECIMENS PATIENT: (test code LACI HALL [id number] [facility] #: [id number] AGE/SX: 25/F ROOM: RE09/06/20REG DR: = SURG) Rosalva Norris MD : 95 BED: DIS: STATUS: NOEMY Oconnor TLOC: SPEC #: [id number] RECD: 09/07/20-1 942 STATUS: STACEY REAntonia #: [id number] EDWINA: 09/07/201941 SUBM DR: Rosalva Norris MD ENTERED: 09/10/20 SP TYPE: SURG SPEC OTHR DR: DOES_NOT KNOW No Primary or Family PhysicianORDERED: GROSS AND MICRO CODES: [id number] - TONSIL, NOS COPIES TO: DOES_NOT KNOW No Primary [place] [id number] [address] PROCEDURES: GROSS AND MICRO (Incomplete) [...] INUED ON NEXT PAGE RUN DATE: 09/11/20 [facility] GE 2 RUN TIME: 0810 Specimen Inquiry RUN USER: INTERFACE SPEC #: [id number] PATIENT: LACI HALL #[id number] (Continued) POST-OP DIAGNOSIS Chronic to nsillitis and adenoiditis, chronic otitis media PRE-OP DIAGNOSIS Chronic tonsillitis and adenoiditis, chronic otitis media Signed SIGNATURE ON FILE Jorge Lindsay MD 09/11/20 0810 END OF REPORT Novel Coronavirus 2018 [id number] 08:22:00 Test Item Value Reference Range Interpretation [...] for the identification of SARS-CoV-2 RNA usingthe SABIA M2000 Sy stem under the FDA Emergen cy UseAuthorizatio n. The testing is perf ormed by personneltraine d in the procedures for the SABIA M2000 molecular diagnostic SARS-CoV-2 assa y in vitro. PROTHROMBIN [id number] 14:33:00 Test Item Value Reference Range Interpretation [...] (to prevent recurrent infar ct). THROMBOPLASTIN TIME [id number] 14:33:00 Test Item Value Reference Range Interpretation Comments THROMBOPLASTIN TIME 31.5 Seconds 25.0-39.5 N Therape utic Range: PARTIAL (test code = 50.4 - 88.3 Seconds PTT) Effective 08/24/2018 CBC W/AUTO [id number] 14:32:00 Test Item Value Reference Range Interpretation [...] REQUIRED (test code NO = MDIFF) PROTHROMBIN [id number] 14:31:00 Test Item Value Reference Range Interpretation [...] (to prevent recurrent infar ct). THROMBOPLASTIN TIME [id number] 14:31:00 Test Item Value Reference Range Interpretation Comments THROMBOPLASTIN TIME PARTIAL (test Seconds 25.0-39.5 code = PTT) HCG SERUM [id number] 14:27:00 Test Item Value Reference Range Interpretation Comments HCG SERUM QUAL (test code = SERUM NEGATIVE NEGATIVE HCGQL) CT ABDOMEN PELVIS W [id number] 01:15:53 END OF REPORT Ordering Physician: DAO [...] - 05/22/2020 7:17 PM CSTOrdering Physician: DAO B PRICHARDClinical Indication: Abd pain, acute, generalized Additional Clinical [...] No evidence of appendicitis.RL: 5611IMPRESSIONEND OF REPORT [facility] METABOLIC PANEL (28810)2020-05-23 00:26:00 Test Item Value Reference Range Interpretation Comments NA (test code = 139 mmol/L 135-145 8026640520) K (test code = 4.2 mmol/L 3.5-5 4700405116) CL (test code = 104 mmol/L 98-108 5395519495) CO2 TOTAL (test code = 26 mmol/L 23-31 0736208420) AGAP (test code = 2-16 3217094857) BUN (test code = 13 mg/dL 7-23 0365799173) GLUCOSE (test code = 101 mg/dL 70-110 7847181585) CREATININE (test code = 0.56 mg/dL 0.5-1.04 6749365958) TOTAL BILI (test code = 0.6 mg/dL 0.1-1.0 9723257331) CALCIUM (test code = 7.4 mg/dL 8.6-10.6 L 4609014454) T PROTEIN (test code = 8.8 g/dL 6.3-8.2 H 7964969529) ALBUMIN (test code = 4.2 g/dL 3.5-5 7346888007) ALK PHOS (test code = 66 U/L 34-122 6850324676) ALTv (test code = 26 U/L 5-35 1742-6) AST(SGOT) (test code = 34 U/L 13-40 4703185322) eGFR Calculation mL/min/1.73m2 (Non-) (test code = 4156505672) eGFR Calculation mL/min/1.73m2 () (test code = 7224569325) LUDY (test code = LUDY) Association of [...] tests). Lab Interpretation Abnormal (test code = 86275-3) [facility] [id number] 00:26:00 Test Item Value Reference Range Interpretation Comments LIPASE (test code = 1859374407) 107 U/L 0-220 Lab Interpretation (test code = Normal 58891-8) [facility] HospitalUrinalysis2021-01-13 00:24:00 Test Item Value Reference Range Interpretation Comments APPEARANCE (test code = Hazy Clear A 0200065439) COLOR (test code = Yellow Yellow 9280040532) PH (test code = 4.8-8.0 2681450051) SP GRAVITY (test code = 1.003-1.030 1250881109) GLU U QUAL (test code = Normal Normal 4592427168) BLOOD (test code = Negative Negative 9170237974) KETONES (test code = Negative Negative 9303398623) PROTEIN (test code = Negative Negative 2887-8) UROBILIN (test code = Normal Normal 8261934878) BILIRUBIN (test code = Negative Negative 4399106166) NITRITE (test code = Negative Negative 2486548018) LEUK MARCIN (test code = Negative Negative 0761584872) RBC/HPF (test code = <1 See_Comment [Autom ated message] 6754837873) The system SyncSum generated this result transmitted ref erence range: 0 - 3 HP F. The reference range was not used to int erpret this result as normal/abnormal . WBC/HPF (test code = See_Comment [Autom ated message] 1934846676) The system [employer] generated this result transmitted ref erence range: 0 - 5 HP F. The reference range was not used to int erpret this result as normal/abnormal . BACTERIA (test code = Negative Negative 1692334439) MUCOUS (test code = Slight Negative LPF A 4429979979) SQ EPITH (test code = HPF 9120303309) Lab Interpretation (test Abnormal code = 20879-6) [facility] with [id number] 00:12:00 Test Item Value Reference Range Interpretation Comments WBC (test code = See_Comment [Automated message] 6690-2) The system [employer]ync[employer] generated this result transmitted ref erence range: 4.30 - 1 1.10 10*3/?L. The re ference range was not u sed to interpret this result as normal/abnor mal. RBC (test code = See_Comment [Automated message] 789-8) The system [employer] generated this result transmitted ref erence range: [...] RDW-SD (test code 40.4 fL 39-49.9 = 38791-8) RDW-CV (test code 13.0 % 12-15.5 = 788-0) PLT (test code = See_Comment [Automated message] 777-3) The system [employer] h generated this result transmitted ref erence range: 166 - 35 8 10*3/?L. The re ference range was not u sed to interpret this result as normal/abnor mal. MPV (test code = 10.6 fL 9.5-12.9 13913-1) NRBC/100 WBC (test See_Comment [Automat ed message] code = 1602907432) The syste m which generated this result transmitted ref erence range: 0.0 - 10 .0 /100 WBCs. The refer ence range was not u sed to interpret this result as normal/abnor mal. NRBC x10^3 (test <0.01 See_Comment [Automated message] code = 4047998634) The syste m which generated this result transmitted ref erence range: 10*3/?L. The reference range was not used to interpr et this result as normal/abnormal . GRAN MAT (NEUT) % 57.7 % (test code = 770-8) IMM GRAN % (test 0.40 % code = 0287827661) LYMPH % (test code 32.1 % = 736-9) MONO % (test code 7.4 % = 5905-5) EOS % (test code = 2.1 % 713-8) BASO % (test code 0.3 % = 706-2) GRAN MAT 4.61 10*3/uL 1.88-7.09 x10^3(ANC) (test code = 1122237291) IMM GRAN x10^3 0.03 10*3/uL 0-0.06 (test code = 7426702842) LYMPH x10^3 (test 2.56 10*3/uL 1.32-3.29 code = 731-0) MONO x10^3 (test 0.59 10*3/uL 0.33-0.92 code = 742-7) EOS x10^3 (test 0.17 10*3/uL 0.03-0.39 code = 711-2) BASO x10^3 (test <0.03 0.01-0.07 code = 704-7) [facility]PO[facility] [id number] 00:09:00 Test Item Value Reference Range Interpretation Comments POCT PREG (test code = 1605) negative On board controls acceptable with present C Line (test code = 3574) POCT PREG LOT # (test code = 3575) [id number] POCT PREG TEST DATE (test 01/08/2022 code = 3576) Lab Interpretation (test code = Normal 62823-4) [facility]
[2022-03-25 19:24] LABS: Absolute Lymphocytes (CBC) 2.6 K/uL (0.7-4.9); Hematocrit 41.1 % (36.0-45.0); Lymphocytes % 38.5 % (15.3-44.8); MCV 85.6 fL (80-100); MPV 8.9 fL (7.6-11.3)
[2022-03-25 19:25] LABS: Urine Blood 3+ (Negative); Urine Glucose Negative (Negative); Urine Protein 1+ (Negative); Urine Specific Gravity >=1.030 (1.005-1.030)
[2022-03-25 19:35] LABS: Potassium 3.7 mmol/L (3.5-5.1)
[2022-03-25 20:17] LABS: Urine Specific Gravity/Preg >1.030 (1.005-1.030)
--- NOTE | 2022-03-25 20:20 | RAD REPORT ---
EXAM DESCRIPTION: US - Transvaginal OB - 03/25/2022 7:52 pm CLINICAL HISTORY: VAGINAL BLEEDING COMPARISON: Transvaginal OB dated 03/20/2022 FINDINGS: No intrauterine gestational sac or sac remnant. Minimal amount of fluid in the cervical ca nal. No intrauterine hematoma. Nabothian cyst is present. Endometrial stripe is 3 mm. Neither ovary is identifiable probably obscured by bowel. There is no adnexal mass. No blood or fluid in the cul de sac. IMPRESSION: Thin 3 mm endometrial stripe with no gestational sac or sac remnant. No adnexal abnormality identified.
[2022-03-25] MEDS ORDERED: HYDROMORPHONE HCL 1 MG/ML INJ ONE (20:36)
--- NOTE | 2022-03-25 20:40 | EDPHYS ---
Physician Documentation [facility] Name: Letty Hall Age: 26 yrs Sex: Female : 1995 Arrival Date: 03/25/2022 Time: 18:15 Bed 19 Private MD: ED Physician Chase Valera HPI: 03/25 19:06 This 26 yrs old Female presents to ER via Ambulatory with complaints of Vaginal snw Bleeding, Abdominal Cramping. 19:06 The patient presents with vaginal bleeding that is light. Onset: The symptoms/episode snw began/occurred acutely. Associated signs and symptoms: Pertinent positives: vaginal bleeding. Severity of symptoms: At their worst the symptoms were moderate, just prior to arrival. pt with multiple miscarriages, was seen for similar s/s last week, repeat QHCG increased from baseline on Thursday. Pt states she is now having clots. 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 - Social history:: Smoking status: Patient reports the use of cigarette tobacco products, smokes one-half pack cigarettes per day, Patient/guardian denies using alcohol. ROS: 19:06 Constitutional: Negative for fever, chills, and weight loss, Eyes: Negative for injury, snw pain, redness, and discharge, ENT: Negative for injury, pain, and discharge, Neck: Negative for injury, pain, and swelling, Cardiovascular: Negative for chest pain, palpitations, and edema, Respiratory: Negative for shortness of breath, cough, wheezing, and pleuritic chest pain, Abdomen/GI: Negative for abdominal pain, nausea, vomiting, diarrhea, and constipation, Back: Negative for injury and pain. 19:06 MS/Extremity: Negative for injury and deformity, Skin: Negative for injury, rash, and discoloration, Neuro: Negative for headache, weakness, numbness, tingling, and seizure. 19:06 : Positive for vaginal bleeding. Exam: 19:06 Constitutional: This is a well developed, well nourished patient who is awake, alert, snw and in no acute distress. Head/Face: Normocephalic, atraumatic. Eyes: Pupils equal round and reactive to light, extra-ocular motions intact. Lids and lashes normal. Conjunctiva and sclera are non-icteric and not injected. Cornea within normal limits. Periorbital areas with no swelling, redness, or edema. ENT: Nares patent. No nasal discharge, no septal abnormalities noted. Tympanic membranes are normal and external auditory canals are clear. Oropharynx with no redness, swelling, or masses, exudates, or evidence of obstruction, uvula midline. Mucous membranes moist. Neck: Trachea midline, no thyromegaly or masses palpated, and no cervical lymphadenopathy. Supple, full range of motion without nuchal rigidity, or vertebral point tenderness. No Meningismus. Chest/axilla: Normal chest wall appearance and motion. Nontender with no deformity. No lesions are appreciated. Cardiovascular: Regular rate and rhythm with a normal S1 and S2. No gallops, murmurs, or rubs. Normal PMI, no JVD. No pulse deficits. Respiratory: Lungs have equal breath sounds bilaterally, clear to auscultation and percussion. No rales, rhonchi or wheezes noted. No increased work of breathing, no retractions or nasal flaring. Abdomen/GI: Soft, non-tender, with normal bowel sounds. No distension or tympany. No guarding or rebound. No evidence of tenderness throughout. Back: No spinal tenderness. No costovertebral tenderness. Full range of motion. Skin: Warm, dry with normal turgor. Normal color with no rashes, no lesions, and no evidence of cellulitis. MS/ Extremity: Pulses equal, no cyanosis. Neurovascular intact. Full, normal range of motion. Neuro: Awake and alert, GCS 15, oriented to person, place, time, and situation. Cranial nerves II-XII grossly intact. Motor strength 5/5 in all extremities. Sensory grossly intact. Cerebellar exam normal. Normal gait. Vital Signs: 18:25 BP 119 / 68; Pulse 108; Resp 18; Temp 97.9(O); Pulse Ox 100% on R/A; Weight 123.83 kg; ld1 Height 5 ft. 5 in. (165.10 cm); Pain 0/10; 18:36 BP 122 / 77; Pulse 94; Resp 18 S; Pulse Ox 100% on R/A; Pain 0/10; kc6 19:40 BP 122 / 77; Pulse 95; Resp 18 S; Pulse Ox 100% on R/A; Pain 0/10; ha1 20:40 BP 120 / 75; Pulse 90; Resp 17 S; Pulse Ox 100% ; ha1 18:25 Body Mass Index 45.43 (123.83 kg, 165.10 cm) ld1 MDM: 18:27 Patient medically screened. snw 20:41 Data reviewed: vital signs, nurses notes. Data interpreted: Pulse oximetry: on room air snw is 100 %. Interpretation: normal. Counseling: I had a detailed discussion with the patient and/or guardian regarding: the historical points, exam findings, and any diagnostic results supporting the discharge/admit diagnosis, lab results, radiology results, the need for outpatient follow up, to return to the emergency department if symptoms worsen or persist or if there are any questions or concerns that arise at home, Return to ED on Thursday for repeat QHCG. 03/25 18:46 Order name: Basic Metabolic Panel; Complete Time: 19:36 snw 03/25 18:46 Order name: CBC with Diff; Complete Time: 19:26 snw 03/25 18:46 Order name: Quantitative Hcg; Complete Time: 19:36 snw 03/25 18:46 Order name: US Transvaginal Ob; Complete Time: 20:26 snw 03/25 19:26 Order name: Urine Dipstick-Ancillary; Complete Time: 19:26 EDMS 03/25 19:37 Order name: Urine --Ancillary (enter results); Complete Time: 20:26 oe 03/25 18:46 Order name: IV Saline Lock; Complete Time: 19:05 snw 03/25 18:46 Order name: Labs collected and sent; Complete Time: 19:05 snw 03/25 18:46 Order name: NPO; Complete Time: 18:46 snw 03/25 18:46 Order name: Urine Dipstick-Ancillary (obtain specimen); Complete Time: 19:46 snw 03/25 19:29 Order name: Urine Test (obtain specimen); Complete Time: 19:46 oe Administered Medications: No medications were administered Disposition Summary: 03/25/22 20:40 Discharge Ordered Location: Home snw Condition: Stable snw Diagnosis - Threatened snw Followup: snw - With: Emergency Department - When: As needed - Reason: Worsening of condition Followup: snw - With: Private Physician - When: 1 week - Reason: Recheck today's complaints, Continuance of care, Re-evaluation by your physician Discharge Instructions: - Discharge Summary Sheet snw - Threatened Miscarriage snw - Vaginal Bleeding During , First Trimester snw Forms: - Medication Reconciliation Form snw - Thank You Letter snw - Antibiotic Education snw - Prescription Opioid Use snw Signatures: Dispatcher [employer] EDYee Gomez FNP-C FNP-Csnw Eligio Gould Lauren, RN RN ld1
--- NOTE | 2022-03-25 20:40 | ER ---
Nurse's Notes [facility] Name: Letty Hall Age: 26 yrs Sex: Female : 1995 Arrival Date: 03/25/2022 Time: 18:15 Bed 19 Private MD: Diagnosis: Threatened Presentation: 03/25 18:25 Chief complaint: Patient states: Spotting X 3 weeks. - LMP 02/13/22. Reports ld1 passing 1 clot. Coronavirus screen: At this time, the client does not indicate any symptoms associated with coronavirus-19. Ebola Screen: No symptoms or risks identified at this time. Initial Sepsis Screen: Does the patient meet any 2 criteria? No. Patient's initial sepsis screen is negative. Does the patient have a suspected source of infection? No. Patient's initial sepsis screen is negative. Risk Assessment: Do you want to hurt yourself or someone else? Patient reports no desire to harm self or others. Onset of symptoms was March 25, 2022. 18:25 Method Of Arrival: Ambulatory ld1 18:25 Acuity: BHAKTI 3 ld1 Triage Assessment: 18:27 General: Appears in no apparent distress. comfortable, Behavior is calm, cooperative, ld1 appropriate for age. Pain: Denies pain. EENT: No signs and/or symptoms were reported regarding the EENT system. Neuro: Level of Consciousness is awake, alert, obeys commands, Oriented to person, place, time, situation, Appropriate for age. Cardiovascular: Capillary refill < 3 seconds Patient's skin is warm and dry. Respiratory: Airway is patent Respiratory effort is even, unlabored. GI: Abdomen is round non-distended. : Reports vaginal bleeding that is with clots, light flow, spotty. Derm: No signs and/or symptoms reported regarding the dermatologic system. Musculoskeletal: No signs and/or symptoms reported regarding the musculoskeletal system. [facility]: 18:27 LMP 02/13/2022 ld1 Historical: - Allergies: 18:27 Haldol; ld1 18:27 VANCOMYCIN AND DERIVATIVES; ld1 - PMHx: 18:27 Depression; Anxiety; GERD; hypocalcemia; hypoparathyroidism; psuedo cranial ld1 hypertension; Sinus Tachycardia; - PSHx: 18:27 Cholecystectomy; Tonsillectomy; DNC X 2; ld1 - Immunization history:: Adult Immunizations up to date, Client reports having NOT received the Covid vaccine. - Social history:: Smoking status: Patient reports the use of cigarette tobacco products, smokes one-half pack cigarettes per day, Patient/guardian denies using alcohol. Screenin:36 Abuse screen: Denies threats or abuse. Denies injuries from another. Nutritional kc6 screening: No deficits noted. Tuberculosis screening: No symptoms or risk factors identified. Fall Risk No fall in past 12 months (0 pts). No secondary diagnosis (0 pts). No IV (0 pts). Ambulatory Aid- None/Bed Rest/Nurse Assist (0 pts). Gait- Normal/Bed Rest/Wheelchair (0 pts) Mental Status- Oriented to own ability (0 pts). Total Spence Fall Scale indicates No Risk (0-24 pts). Assessment: 18:33 General: Appears in no apparent distress. comfortable, Behavior is calm, cooperative, kc6 appropriate for age. Pain: Denies pain. Neuro: Harrell Agitation-Sedation Scale (RASS): 0 - Alert and Calm Level of Consciousness is awake, alert, obeys commands, Oriented to person, place, time, situation, Appropriate for age. Cardiovascular: Heart tones S1 S2 present Capillary refill < 3 seconds. Respiratory: Airway is patent Trachea midline Respiratory effort is even, unlabored, Respiratory pattern is regular, symmetrical, Breath sounds are clear bilaterally. GI: No signs and/or symptoms were reported involving the gastrointestinal system. Abdomen is flat, non-distended, Bowel sounds present X 4 quads. Abd is soft and non tender X 4 quads. : Reports vaginal bleeding that is bright red, with clots, moderate flow, spotty. EENT: No signs and/or symptoms were reported regarding the EENT system. Derm: No signs and/or symptoms reported regarding the dermatologic system. Skin is intact, Skin is pink, warm \T\ dry. Musculoskeletal: No signs and/or symptoms reported regarding the musculoskeletal system. Circulation, motion, and sensation intact. Capillary refill < 3 seconds, Range of motion: intact in all extremities. 19:40 General: Appears in no apparent distress. comfortable, Behavior is calm, cooperative. ha1 Pain: Denies pain. Neuro: Level of Consciousness is awake, alert, obeys commands, Oriented to person, place, time, situation. Cardiovascular: Heart tones S1 S2 present Capillary refill < 3 seconds Patient's skin is warm and dry. Respiratory: Airway is patent Trachea midline Respiratory effort is even, unlabored, Respiratory pattern is regular, symmetrical. GI: Abdomen is flat, non-distended, Bowel sounds present X 4 quads. Abd is soft and non tender X 4 quads. : Reports vaginal bleeding that is bright red, with clots, moderate flow, spotty. Derm: Skin is intact, Skin is pink, warm \T\ dry. Musculoskeletal: Circulation, motion, and sensation intact. Capillary refill < 3 seconds, Range of motion: intact in all extremities. 20:40 Reassessment: Patient and/or family updated on plan of care and expected duration. Pain ha1 level reassessed. Patient is alert, oriented x 3, equal unlabored respirations, skin warm/dry/pink. 21:05 Reassessment: light vaginal bleeding. provided education about following up referrals. ha1 Vital Signs: 18:25 BP 119 / 68; Pulse 108; Resp 18; Temp 97.9(O); Pulse Ox 100% on R/A; Weight 123.83 kg; ld1 Height 5 ft. 5 in. (165.10 cm); Pain 0/10; 18:36 BP 122 / 77; Pulse 94; Resp 18 S; Pulse Ox 100% on R/A; Pain 0/10; kc6 19:40 BP 122 / 77; Pulse 95; Resp 18 S; Pulse Ox 100% on R/A; Pain 0/10; ha1 20:40 BP 120 / 75; Pulse 90; Resp 17 S; Pulse Ox 100% ; ha1 18:25 Body Mass Index 45.43 (123.83 kg, 165.10 cm) ld1 ED Course: 18:15 Patient arrived in ED. am2 18:17 Yee Oconnor F[facility]-C [facility] snw 18:17 Chase Valera MD is Attending Physician. snw 18:27 Triage completed. ld1 18:27 Arm band placed on right wrist. ld1 18:28 Analy Cobb, [facility] is Primary Nurse. kc6 18:36 Patient has correct armband on for positive identification. Placed in gown. Bed in low kc6 position. Call light in reach. Side rails up X 1. Adult w/ patient. 19:15 Basic Metabolic Panel Sent. kc6 19:15 CBC with Diff Sent. kc6 19:15 Quantitative Hcg Sent. kc6 19:15 Inserted saline lock: 20 gauge in right forearm, using aseptic technique. Blood kc6 collected. 19:53 US Transvaginal Ob In Process Unspecified. EDMS 21:04 No provider procedures requiring assistance completed. IV discontinued, intact, ha1 bleeding controlled, No redness/swelling at site. Pressure dressing applied. Administered Medications: No medications were administered Medication: 21:05 VIS not applicable for this client. ha1 Outcome: 20:40 Discharge ordered by . snzohra 21:04 Discharged to home ambulatory, with family. ha1 21:04 Condition: stable 21:04 Discharge instructions given to patient, Instructed on discharge instructions, follow up and referral plans. Demonstrated understanding of instructions, follow-up care. 21:07 Patient left the ED. ha1 Signatures: Dispatcher [employer] EDNE Yee Oconnor, [employer]-C [employer]-Csnw Karla Slater am2 Navya Brunner, RN RN ld1 Shanita Sutton RN RN ha1 Analy Cobb RN RN kc6
[2022-03-25 21:35] VITALS: TEMP 97.9; O2SAT 100
[2022-03-25 21:52] VITALS: BP 120/75
== END 2022-03-25 21:07 | disposition home or self-care (01) ==
LOC: ER 18:14
DX: O20.0 Threatened abortion (principal); F17.210 Nicotine dependence, cigarettes, uncomplicated; Z88.3 Allergy status to other anti-infective agents; Z88.5 Allergy status to narcotic agent
CPT/HCPCS: 85025; 80048; 36415; 81025; 84702; 81003; 76817; 99284; J1170

== ENCOUNTER 2022-04-05 11:12 | Emergency (ER) | payer OTHER ==
--- OUTSIDE RECORDS SUMMARY | 2022-04-05 11:28 | XMS REPORT | Continuity of Care Document ---
:1995 Author Organization [facility] t Address [address] [place] [place] [address] Care Team Providers Name Role Phone Louis Rahman MD, Jer Primary Care Physician [phone] Rosalva Norris Attending Clinician Unavailable KOKI SOTO Attending Clinician Unavailable PENNIE_Delvin Attending Clinician Unavailable Nisa Brown Attending Clinician [phone] Sivan JANAEDao Attending Clinician Doctor Unassigned, [place] Attending Clinician Unavailable Humberto Attending Clinician Unavailable Deanna Anthony Attending Clinician SANDEEP HOSKINS Attending Clinician Unavailable KELLY Admitting Clinician Unavailable Dotty_Kenia Admitting Clinician Unavailable YAYA SPICER Admitting Clinician Unavailable Payers Payer Name Policy Type Policy Number Effective Date Expiration Date S jeremy [place] - [id number] [place] [address] ([facility] [place] [id number] HEALTH PROGRAM (MEDICAID) Problems Condition Condition Condition Status Onset Resolution Last Treating Co mments Source Name Details Category Date Date Treatment Clinician Date Fever Fever Problem Active [place] 7-13 Communi 00:00: ty 00 [facility] Wheezing Wheezing Problem Active [place] 11-20 Communi 00:00: ty 00 [facility] COVID-19 Covid-19 Problem Active [place] 7 Communi 00:00: ty 00 [facility] Pain in Pain in Problem Active [place] throat Throat 11-20 Communi 00:00: ty 00 [facility]osp[facility] Clinics Mastoiditi Mastoiditi Disease Active U nivers s of both s of both 6-07 ity of sides sides 00:00: [address] Branch 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 [...] vision vision 1-15 ity of 00:00: Medical [place] Allergies, Adverse Reactions, Alerts Allergy Allergy Status Severity Reaction(s) Onset Inactive Treating Comm ents Source Name Type Date Date Clinician haloperi DA Active AL [facility] dol 4-27 Clear 00:00: 00 [facility] vancomyc DA Active AL [facility] in 427 Clear 00:00: 00 [facility] haloperi DA Active AL MASTOIDITIS H[facility] dol 4-27 Clear 00:00: 00 [facility] vancomyc DA Active AL MASTOIDITIS HCA in 427 Clear 00:00: 00 [facility] Haloperi Propensi Active Anaphylaxis U nivers dol ty to 5 ity of Lactate adverse 00:00: [place] reaction [facility] HALOPERI DRUG Active Anaphylaxis Uni vers DOL INGREDI 5 ity of LACTATE 00:00: [facility] Haloperi Propensi Active 2016-05 Method i dol [...] ity of adverse 00:00: [place] reaction [facility] Vancomyc Propensi Active Unknown - "gives me Univers in ty to See comments 12-05 [place] ity of adverse 00:00: syndrome" [place] reaction [facility] MORPHINE DRUG Active Other-Cmnt Univ ers INGREDI 12-05 ity of 00:00: [place] [facility] [place] VANCOMYC DRUG Active Unknown-Cmnt [facility] ity of 00:00: [place] 00 [facility] HALDOL Allergy Active Moderate Other [place] to [facility] ty e Hospita l Clinics Vancomyc Allergy Active Moderate Other Sween y in to [facility] ty e Hospita l Clinics Family History Family Member Diagnosis Comments Start Date Stop Date Source Maternal aunt Depression [facility] [place] ospital Maternal aunt [facility] Natural mother Depression [facility] Natural mother Suicide Attempts [facility] Social History Social Habit Start Date Stop Date Quantity Comments Source Exposure to Yes University of SARS-CoV-2 (event) [facility] History of tobacco Cigarette Smoker University of use [facility] Tobacco use and 2020-05-22 2020-05-22 Current user Univers ity of exposure 00:00:00 00:00:00 [facility] Cigarettes smoked 2020-05-22 2020-05-22 Univers ity of current (pack per 00:00:00 00:00:00 [facility] ) - Reported Branch Alcohol intake 2019-02-20 2019-02-20 Current drinker Metho dist 00:00:00 00:00:00 of alcohol [facility] (finding) Alcohol Comment 2019-02-19 2019-02-19 drinks casually, Met hodist 00:00:00 00:00:00 once a month, 3 Hospital X a year Sex Assigned At [birth year] Gn[facility]ism 00:00:00 00:00:00 Hospital Smoking Status Start Date Stop Date Source Heavy Tobacco Smoker [facility] Current every day smoker 2020-05-22 00:00:00 Uni versity of [facility] Medications Ordered Filled Start Stop Current [...] dose, 05/22/20 at 1730, LAMIN dicyclomine Yes [id number] 10mg Take 1 Univers (BENTYL) 10 1-12 capsule by it y of mg capsule 00:00: mouth [place] (four) Medical times Branch daily as needed for Abdominal pain. ondansetron Yes [id number] 4mg Take 1 Univers 4 mg 1-12 [...] 400 Met hodi oxide 0-14 mg by (MAG-OX) 17:06: mouth Hospita 400 mg 45 daily. l (241.3 mg magnesium) tablet cholecalcif 2018-05 Yes 1000U QD Take 1,000 Methodi hira, 0-14 Units by vitamin D3, 17:06: mouth Hospi ta (VITAMIN 45 daily. l D3) 1,000 unit tablet GUAIFENESIN 2017-05 Yes Take by Uni vers ORAL 0-03 mouth. ity of 20:28: [address] 2017-05 Yes Take by Uni vers ORAL 0-03 mouth. ity of 20:28: [address] 2017-05 Yes Take by Uni vers ORAL 0-03 mouth. ity of 20:28: [address] 2017-05 Yes Take by Uni vers ORAL 0-03 mouth. ity of 20:28: [address] CALCIUM 2017-05 Yes 2500mg Take 2,500 [...] 59 (two) Medical times Branch daily. CALCIUM 2018 Yes 2500mg Take 2,500 Un leonarda CARBONATE 0-03 mg by ity of (TUMS ORAL) 20:25: mouth 2 [place] as 59 (two) Medical times Branch daily. clonazePAM 2018 Yes 1mg Take 1 mg Un leonarda [...] mouth ity of 20 mg 00:59: daily. [place] [address] Medical Branch vortioxetin Yes Take by Uni vers e 10 mg Tab 6-08 mouth ity of 00:59: daily. [place] [address] Medical Branch topiramate 0 Yes 25mg Take 25 mg U nivers (TOPAMAX) 6-08 by mouth ity of 25 mg 00:59: daily. [place] [address] Medical Branch magnesium 0 Yes 400mg Take [...] as 04 times Medical daily. Branch acetaZOLAMI 20180 Yes 300mg Take 300 U nivers DE 250 mg 6-08 mg by ity of tablet 00:59: mouth 2 [place] [address] (two) Medical times Branch daily. vilazodone 2017-0 Yes 20mg Take 20 mg U nivers (VIIBRYD) 6-08 by mouth ity of 20 mg 00:59: daily. [place] [address] Medical Branch vortioxetin 0 Yes Take by Uni vers e 10 mg Tab 6-08 mouth ity of 00:59: daily. [place] [address] Medical Branch topiramate 0 Yes 25mg Take 25 mg U nivers (TOPAMAX) 6-08 by mouth ity of 25 mg 00:59: daily. [place] tablet Medical Branch magnesium 0 Yes 400mg Take 400 Uni vers oxide 400 6-08 mg by ity of mg tablet 00:59: mouth [place] [address] daily. Medical Branch cholecalcif Yes 1000U Take 1,000 Univers hira, 6-08 Units by ity of vitamin D3, 00:59: mouth [place] (VITAMIN 04 daily. Medical D3) 1,000 Branch unit tablet POTASSIUM Yes 75mg 75 mg Univers CHLORIDE 6-08 daily. ity of MISC 00:59: Indication [place] [address] s: OTC Medical Branch clonazePAM 0 Yes 1mg Take 1 mg Un leonarda (KLONOPIN) 6-08 by mouth 3 ity of 1 mg tablet 00:59: (three) [place] 04 times [facility] daily. Branch acetaZOLAMI 0 Yes 300mg Take 300 U nivers DE 250 mg 6-08 mg by ity of tablet 00:59: mouth 2 [place] [address] (two) Medical times Branch daily. vilazodone 2017-0 Yes 20mg Take 20 mg U nivers (VIIBRYD) 6-08 by mouth ity of 20 mg 00:59: daily. [place] [address] Medical Branch vortioxetin Yes Take by Uni vers e 10 mg Tab 6-08 mouth ity of 00:59: daily. [place] [address] Medical Branch topiramate 2017-0 Yes 25mg Take 25 mg U nivers (TOPAMAX) 6-08 by mouth ity of 25 mg 00:59: daily. [place] tablet Medical Branch magnesium 2018-0 Yes 400mg Take 400 Uni vers oxide 400 6-08 mg by ity of mg tablet 00:59: mouth [place] [address] daily. Medical Branch cholecalcif 0 Yes 1000U Take 1,000 Univers hira, 6-08 Units by ity of vitamin D3, 00:59: mouth [place] (VITAMIN 04 daily. Medical D3) 1,000 Branch unit tablet POTASSIUM 2017- Yes 75mg 75 mg Univers CHLORIDE 6-08 [...] mouth ity of 20 mg 00:59: daily. [place] [address] Medical Branch vortioxetin Yes Take by Uni vers e 10 mg Tab 6-08 mouth ity of 00:59: daily. [place] [address] Medical Branch topiramate Yes 25mg Take 25 mg U nivers (TOPAMAX) 6-08 by mouth ity of 25 mg 00:59: daily. [place] [address] Medical [place] magnesium Yes 400mg Take 400 Uni vers [...] 00:59: Indication 04 s: OTC Medical Branch albuterol albuterol No 3mL TID albuterol [place] sulfate 2.5 sulfate 2.5 sulfate Communi mg/3 [...] for 30 days. albuterol albuterol No albuterol [place] sulfate HFA sulfate HFA sulfate Communi 90 90 HFA 90 ty mcg/actuati mcg/actuati mcg/actuat Hospita on aerosol on aerosol ion l inhaler inhaler aerosol Clinic s INHALE 2 INHALE 2 inhaler PUFFS BY PUFFS BY INHALE 2 MOUTH EVERY MOUTH EVERY PUFFS BY 4 TO 6 4 TO 6 MOUTH HOURS HOURS EVERY 4 TO 6 HOURS azithromyci azithromyci No azithromyc [place] n 250 mg n 250 mg in [...] THROUGH DAY 5 calcitriol calcitriol No calcitriol [place] 0.5 mcg 0.5 mcg 0.5 mcg Commun i capsule capsule capsule ty TAKE 1 TAKE 1 TAKE 1 Hospita CAPSULE BY CAPSULE BY CAPSULE BY l MOUTH 4 MOUTH 4 MOUTH 4 Clinic s TIMES DAILY TIMES DAILY TIMES FOR 90 DAYS FOR 90 DAYS DAILY FOR 90 DAYS fluocinonid fluocinonid No fluocinoni [place] e 0.05 % e 0.05 % de [...] FOR 30 DAYS methocarbam methocarbam No methocarba [place] ol 750 mg ol 750 mg mol 750 mg Communi tablet TAKE tablet TAKE tablet ty 1 TABLET BY 1 TABLET BY TAKE 1 Hospita MOUTH EVERY MOUTH EVERY TABLET BY l 8 HOURS 8 HOURS MOUTH Clinics EVERY 8 HOURS prednisone prednisone No 1dose prednisone [place] 10 mg 10 mg pk(s) 10 mg [...] for 6 days. calcitriol calcitriol No calcitriol [place] 0.5 mcg 0.5 mcg 0.5 mcg Commun i capsule capsule capsule ty TAKE 1 TAKE 1 TAKE 1 Hospita CAPSULE BY CAPSULE BY CAPSULE BY l MOUTH 4 MOUTH 4 MOUTH 4 Clinic s TIMES DAILY TIMES DAILY TIMES FOR 90 DAYS FOR 90 DAYS DAILY FOR 90 DAYS Valium 5 mg Valium 5 mg No Valium 5 [place] tablet Take tablet Take mg tablet Communi [...] Source BP Diastolic 2021-02-28 00:00:00 82 mm[Hg] [facility] Height 2021-02-28 00:00:00 65 [in_i] [facility] BMI (Body Mass 2021-02-28 00:00:00 44.6 kg/m2 [facility] Clinic s BP Systolic 2021-02-28 00:00:00 126 mm[Hg] [facility] Body Weight 2021-02-28 00:00:00 4291.2 [oz_av] [facility] s BP Diastolic 2020-11-20 00:00:00 83 mm[Hg] [facility] s Height 2020-11-20 00:00:00 65 [in_i] [facility] s BMI (Body Mass 2020-11-20 00:00:00 46 kg/m2 [facility]) [facility] Clinic s BP Systolic 2020-11-20 00:00:00 137 mm[Hg] [facility] s Body Weight 2020-11-20 00:00:00 4425.6 [oz_av] [facility] s Systolic blood 2020-05-23 01:36:00 143 mm[Hg] Univer sity of pressure [place] [facility] Diastolic blood 2020-05-23 01:36:00 99 mm[Hg] Unive rsity of pressure [place] [facility] Heart rate 2020-05-23 01:36:00 94 /min Universi ty of [place] [facility] Respiratory rate 2020-05-23 01:36:00 18 /min Univ ersity of [place] [facility] Oxygen saturation in 2020-05-23 01:36:00 100 /min University of Arterial blood by [facility] Pulse oximetry Branch Body temperature 2020-05-23 01:15:52 37 [facility] ersity of [place] [facility] Body height 2020-05-22 22:41:00 165.1 cm Universi ty of [place] [facility] Body weight 2020-05-22 22:41:00 127.007 kg Universi ty of [place] [facility] BMI 2020-05-22 22:41:00 46.59 kg/m2 Universi ty of [place] [facility] Systolic blood 2020-05-23 01:36:00 143 mm[Hg] Univer sity of pressure [place] [facility] Diastolic blood 2020-05-23 01:36:00 99 mm[Hg] Unive rsity of pressure [place] [facility] Heart rate 2020-05-23 01:36:00 94 /min Universi ty of [place] [facility] Respiratory rate 2020-05-23 01:36:00 18 /min Univ ersity of [place] [facility] Oxygen saturation in 2020-05-23 01:36:00 100 /min University of Arterial blood by [facility] Pulse oximetry Branch Body temperature 2020-05-23 01:15:52 37 [facility] ersity of [place] [facility] Body height 2020-05-22 22:41:00 165.1 cm Universi ty [facility] [place] [facility] Body weight 2020-05-22 22:41:00 127.007 kg [facility]i ty [facility] [place] [facility] BMI 2020-05-22 22:41:00 46.59 kg/m2 [facility] [place] [facility] Procedures Procedure Date / Time Performing Clinician Source Performed XR, chest, 2 view 2020-11-20 00:00:00 [facility] CT ABDOMEN PELVIS W 2020-05-23 00:46:11 Dao Nicolas [facility] CONTRAST [facility] POCT TEST 2020-05-23 00:09:00 Dao Nicolsa [facility] LIPASE 2020-05-22 23:59:[address] [facility] COMP. METABOLIC PANEL 2020-05-22 23:59:00 Dao Nicolas [facility] ([id number]) [facility] CBC WITH DIFF 2020-05-22 23:59:[address] [facility] URINALYSIS 2020-05-22 23:59:[address] [facility] CONSENT/REFUSAL FOR 2020-05-22 22:30:18 Doctor Unassigned [facility] DIAGNOSIS AND TREATMENT [place] [facility] AUTHORIZATION FOR RELEASE 2019-07-28 05:01:00 Doctor Unassigned, [facility] OF PHI [place] [facility] Endoscopy 2015-05-11 00:00:00 [facility] Breast Biopsy 2015-05-11 00:00:00 [facility] Cholecystectomy 2012-05-11 00:00:00 [facility] Ear Tube [facility] Plan of Care Planned Activity Planned Date Details Comments Source Future Scheduled Test 2022-03-22 HEPATITIS B VACCINES [facility] 23:49:50 (1 of 3 - 3-dose series) [code = HEPATITIS B VACCINES (1 of 3 - 3-dose series)] Future Scheduled Test 2022-03-22 COVID-19 VACCINE (#1) [facility] 23:49:50 [code = COVID-19 VACCINE (#1)] Future Scheduled Test 2022-03-22 Scre[facility] 23:49:50 malignant neoplasm of cervix (procedure) [code = 248945345] Future Scheduled Test 2022-03-22 INFLUENZA VACCINE [facility] 23:49:50 [code = INFLUENZA VACCINE] Future Scheduled Test 2022-03-22 HEPATITIS B VACCINES [facility] 23:49:50 (1 of 3 - 3-dose series) [code = HEPATITIS B VACCINES (1 of 3 - 3-dose series)] Future Scheduled Test 2022-03-22 COVID-19 VACCINE (#1) [facility] 23:49:50 [code = COVID-19 VACCINE (#1)] Future Scheduled Test 2022-03-22 Screening for [facility] 23:49:50 malignant neoplasm of cervix (procedure) [code = 946239898] Future Scheduled Test 2022-03-22 INFLUENZA VACCINE [facility] 23:49:50 [code = INFLUENZA VACCINE] Future Scheduled Test 2022-03-22 HEPATITIS B VACCINES [facility] 23:49:50 (1 of 3 - 3-dose series) [code = HEPATITIS B VACCINES (1 of 3 - 3-dose series)] Future Scheduled Test 2022-03-22 COVID-19 VACCINE (#1) [facility] 23:49:50 [code = COVID-19 VACCINE (#1)] Future Scheduled Test 2022-03-22 Screening for [facility] 23:49:50 malignant neoplasm of cervix (procedure) [code = 310861249] Future Scheduled Test 2022-03-22 INFLUENZA VACCINE [facility] 23:49:50 [code = INFLUENZA VACCINE] Future Scheduled Test 2022-03-15 HEPATITIS B VACCINES [facility] 20:07:35 (1 of 3 - 3-dose series) [code = HEPATITIS B VACCINES (1 of 3 - 3-dose series)] Future Scheduled Test 2022-03-15 COVID-19 VACCINE (#1) [facility] 20:07:35 [code = COVID-19 VACCINE (#1)] Future Scheduled Test 2022-03-15 Pneumococcal Vaccine: [facility] 20:07:35 Pediatrics (0 to 5 Years) and At-Risk Patients (6 to 64 Years) (1 - PCV) [code = Pneumococcal Vaccine: Pediatrics (0 to 5 Years) and At-Risk Patients (6 to 64 Years) (1 - PCV)] Future Scheduled Test 2022-03-15 Hepatitis C screening [facility] 20:07:35 (procedure) [code = 967922835] Future Scheduled Test 2022-03-15 Screening for [facility] 20:07:35 malignant neoplasm of cervix (procedure) [code = 195483971] Future Scheduled Test 2022-03-15 INFLUENZA VACCINE [facility] 20:07:35 [code = INFLUENZA VACCINE] Future Scheduled Test 2022-01-09 HEPATITIS B VACCINES [facility] 20:17:48 (1 of 3 - 3-dose series) [code = HEPATITIS B VACCINES (1 of 3 - 3-dose series)] Future Scheduled Test 2022-01-09 COVID-19 VACCINE (#1) [facility] 20:17:48 [code = COVID-19 VACCINE (#1)] Future Scheduled Test 2022-01-09 Pneumococcal Vaccine: [facility] 20:17:48 Pediatrics (0 to 5 Years) and At-Risk Patients (6 to 64 Years) (1 - PCV) [code = Pneumococcal Vaccine: Pediatrics (0 to 5 Years) and At-Risk Patients (6 to 64 Years) (1 - PCV)] Future Scheduled Test 2022-01-09 Hepatitis C screening [facility] 20:17:48 (procedure) [code = 629798137] Future Scheduled Test 2022-01-09 Screening for [facility] 20:17:48 malignant neoplasm of cervix (procedure) [code = 480939549] Future Scheduled Test 2022-01-09 INFLUENZA VACCINE [facility] 20:17:48 [code = INFLUENZA VACCINE] Diagnostic Test 2020-11-20 rapid SARS CoV 2 Ag, [facility] Pending 00:00:00 QL [place], respiratory Hospital Clinics specimen [code = rapid SARS CoV 2 Ag, QL [place], respiratory specimen] Diagnostic Test 2020-11-20 rapid strep group A, [facility] Pending 00:00:00 throat [code = rapid Hospita Clinics strep group A, throat] Diagnostic Test 2020-11-20 rapid flu (A+B) [code [facility] Pending 00:00:00 = rapid flu (A+B)] Hospital Clinics Instructions [facility] Clinic s Encounters Start End Encounter Admission Attending Care Care Encounter Source Date/Time Date/Time Type Type Clinicians Facility Department ID 2021-03-09 Emergency [facility] [id number] Univers 16:53:19 [facility] 2020-08-29 Inpatient Rosalva Norris [facility] [id number] [facility] 12:58:27 50 [facility] 2021-02-28 2021-02-28 Outpatient [facility] [id number] [place] 10:39:00 10:39:00 _L 1021 Commun i ty Hospita l [facility] 2021-02-28 2021-02-28 Outpatient [facility] [id number] [id number] 00:00:00 00:00:00 , Nisa [id number] Hyacinth [id number] 2021-02-28 2021-02-28 Nisa Claros [facility] [place] - [place] [id number] [place] 00:00:00 00:00:00 [facility] ALTAGRACIA engel-C: Hospital [place] [address], [place] [address] , Ph. 2020-11-21 2020-11-21 Outpatient [facility] [place] 01:00:00 01:00:00 _L 0714 Commun i ty [facility]osp[facility] 2020-11-20 2020-11-20 Outpatient [facility] [place] 06:10:00 06:10:00 _L 0713 Commun i ty [facility]osp[facility] 2020-11-20 2020-11-20 Nisa Claros [facility] [place] - [place] [id number] [place] 00:00:00 00:00:00 [facility] ALTAGRACIA engel-C: Hospital - [place] [address], [place] [address] , Ph. 2020-11-20 2020-11-20 Outpatient [facility] [id number] 00:00:00 00:00:00 , Nisa [id number] Hyacinth [id number] 2020-05-22 2020-05-22 Emergency [facility] [id number] 16:43:00 20:04:00 Dao Abdullahi [id number] [employer] [id number] [place] [id number] 2020-05-22 2020-05-22 Emergency [facility] [id number] [facility] 16:43:00 20:04:00 Dao B Bradly [id number] i ty of [employer] 4.2.7.2.686 [place] [id number] [facility] 084 [place] 2020-05-22 2020-05-22 Orders Doctor ALFRED 1.2.840.114 [id number] 00:00:00 00:00:00 Only Unassigned, MIKHAIL [id number] [place] [facility] 4.2.7.2.686 [id number] 2020-05-22 2020-05-22 Orders Doctor ALFRED 1.2.840.114 [id number] Univers 00:00:00 00:00:00 Only Unassigned, MIKHAIL [id number] ity of [place] [facility] 4.2.7.2.686 [place] as [phone] [facility] 009 Branch 2020-02-15 2020-02-15 Outpatient G_Pappas [facility] [id number] [place] 12:05:00 12:05:[address] [place] [address] Medical Group 2019-08-02 2019-08-02 Outpatient R [facility] [id number] Univers 18:40:00 18:40:00 ity of [facility] 2019-08-02 2019-08-02 Telephone [facility] [id number] 00:00:00 00:00:00 [facility] [id number] [place] 4.2.7.2.686 Professio [id number] nal [facility] Office [address] 2019-08-02 2019-08-02 Telephone [facility] [id number] Univers 00:00:00 00:00:00 [facility] [id number] it y of [place] 4.2.7.2.686 [place] as Professio [phone] Nv dical [address] Office [address] 2019-07-28 2019-07-28 Orders Doctor ALFRED 1.2.840.114 [id number] 00:00:00 00:00:00 Only Unassigned, MIKHAIL [id number] [place] [facility] [id number] [id number] 2019-07-28 2019-07-28 Orders Doctor ALFRED 1.2.840.114 [id number] Univers 00:00:00 00:00:00 Only Unassigned, MIKHAIL [id number] ity of [place] [facility] [id number] [place] as [phone] [place] [address] Branch 2019-02-18 2019-02-21 Inpatient SANDEEP HOSKINS [facility] [id number] [place] 00:00:00 00:00:[address] Results Test Description Test Time Test Comments Results Result Comments Source SURGICAL PATH SPECIMENS 2020-09-11 08:10:00 Test Item Value Reference Range Interpretation Comme nts SURGICAL RUN DATE: PATH 09/11/20 [facility] GE 1 RUN TIME: 0810 Specimen Inquiry RUN USER: INTERFACE SPECIMENS PATIENT: (test code LACI HALL [id number] LOC: [facility] U #: [id number] AGE/SX: 25/F ROOM: RE09/06/20REG DR: = SURG) Rosalva Norris MD : 95 BED: DIS: STATUS: DEP SD C TLOC: SPEC #: [id number] RECD: 09/07/20-1 942 STATUS: STACEY RE #: [id number] EDWINA: 09/07/201941 SUBM DR: Rosalva Norris MD ENTERED: 09/10/20 SP TYPE: SURG SPEC OTHR DR: DOES_NOT KNOW No Primary or Family PhysicianORDERED: GROSS AND MICRO CODES: [id number] - TONSIL, NOS COPIES TO: DOES_NOT KNOW No Primary [place] [address] [address] PROCEDURES: GROSS AND MICRO (Incomplete) TISSUES: 1. [...] INUED ON NEXT PAGE RUN DATE: 09/11/20 [facility] P AGE 2 RUN TIME: 809 Specimen Inquiry RUN USER: INTERFACE SPEC #: [id number] PATIENT: LACI HALL #[id number] (Continued) POST-OP DIAGNOSIS Chronic to nsillitis and adenoiditis, chronic otitis media PRE-OP DIAGNOSIS Chronic tonsillitis and adenoiditis, chronic otitis media Signed SIGNATURE ON FILE Jorge Lindsay MD 09/11/20 0810 END OF REPORT Novel Coronavirus 2018 [id number] 08:22:00 Test Item Value Reference Range Interpretation [...] for the identification of SARS-CoV-2 RNA usingthe [employer] M2000 Sy stem under the FDA Emergen cy UseAuthorizatio n. The testing is perf ormed by personneltraine d in the procedures for the [employer] M2000 molecular diagnostic SARS-CoV-2 assa y in vitro. PROTHROMBIN [id number] 14:33:00 Test Item Value Reference Range Interpretation [...] (to prevent recurrent infar ct). THROMBOPLASTIN TIME [id number] 14:33:00 Test Item Value Reference Range Interpretation Comments THROMBOPLASTIN TIME 31.5 Seconds 25.0-39.5 N Therape utic Range: PARTIAL (test code = 50.4 - 88.3 Seconds PTT) Effective 08/24/2018 CBC W/AUTO [id number] 14:32:00 Test Item Value Reference Range Interpretation [...] REQUIRED (test code NO = MDIFF) PROTHROMBIN [id number] 14:31:00 Test Item Value Reference Range Interpretation [...] (to prevent recurrent infar ct). THROMBOPLASTIN TIME [id number] 14:31:00 Test Item Value Reference Range Interpretation Comments THROMBOPLASTIN TIME PARTIAL (test Seconds 25.0-39.5 code = PTT) HCG SERUM [id number] 14:27:00 Test Item Value Reference Range Interpretation Comments HCG SERUM QUAL (test code = SERUM NEGATIVE NEGATIVE HCGQL) CT ABDOMEN PELVIS W [id number] 01:15:53 END OF REPORT Ordering Physician: DAO [...] gallbladder.5. No evidence of appendicitis. RL: [id number] [facility], Radiant Results Inft User - 05/22/2020 7:17 [...] No evidence of appendicitis.RL: [id number] OF [facility]PORT [facility] METABOLIC PANEL ([id number])2020-05-23 00:26:00 Test Item Value Reference Range Interpretation Comments NA (test code = 139 mmol/L 135-145 5974977766) K (test code = 4.2 mmol/L 3.5-5 0988375937) CL (test code = 104 mmol/L 98-108 8847634404) CO2 TOTAL (test code = 26 mmol/L 23-31 0319363104) AGAP (test code = 2-16 8042412745) BUN (test code = 13 mg/dL 7-23 2724365908) GLUCOSE (test code = 101 mg/dL 70-110 7661203987) CREATININE (test code = 0.56 mg/dL 0.5-1.04 5692540665) TOTAL BILI (test code = 0.6 mg/dL 0.1-1.6 9072221889) CALCIUM (test code = 7.4 mg/dL 8.6-10.6 L 2159091661) T PROTEIN (test code = 8.8 g/dL 6.3-8.2 H 7610537484) ALBUMIN (test code = 4.2 g/dL 3.5-5 7717577192) ALK PHOS (test code = 66 U/L 34-122 8461516740) ALTv (test code = 26 U/L 5-35 1742-6) AST(SGOT) (test code = 34 U/L 13-40 9520089746) eGFR Calculation mL/min/1.73m2 (Non-) (test code = 6386861523) eGFR Calculation mL/min/1.73m2 () (test code = 7357088040) LUDY (test code = LUDY) Association of [...] tests). Lab Interpretation Abnormal (test code = 27039-6) [facility] [id number] 00:26:00 Test Item Value Reference Range Interpretation Comments LIPASE (test code = 8477593079) 107 U/L 0-220 Lab Interpretation (test code = Normal 70111-1) [facility] Hospital[facility]inalysis2021-01-13 00:24:00 Test Item Value Reference Range Interpretation Comments APPEARANCE (test code = Hazy Clear A 3799914245) COLOR (test code = Yellow Yellow 6632640895) PH (test code = 4.8-8.0 0346584638) SP GRAVITY (test code = 1.003-1.030 9702245808) GLU U QUAL (test code = Normal Normal 6189463389) BLOOD (test code = Negative Negative 0273827911) KETONES (test code = Negative Negative 2196196141) PROTEIN (test code = Negative Negative 2887-8) UROBILIN (test code = Normal Normal 4944143554) BILIRUBIN (test code = Negative Negative 1628301676) NITRITE (test code = Negative Negative 0008440652) LEUK MARCIN (test code = Negative Negative 2946026257) RBC/HPF (test code = <1 See_Comment [Autom ated message] 0137007911) The system [employer] generated this result transmitted ref erence range: 0 - 3 HP F. The reference range was not used to int erpret this result as normal/abnormal . WBC/HPF (test code = See_Comment [Autom ated message] 6209989012) The system [employer] generated this result transmitted ref erence range: 0 - 5 HP F. The reference range was not used to int erpret this result as normal/abnormal . BACTERIA (test code = Negative Negative 9070829854) MUCOUS (test code = Slight Negative LPF A 8559981332) SQ EPITH (test code = HPF 1232079820) Lab Interpretation (test Abnormal code = 25625-1) [facility] with [id number] 00:12:00 Test Item Value Reference Range Interpretation Comments WBC (test code = See_Comment [Automated message] 3690-2) The system [employer] generated this result transmitted ref erence range: 4.30 - 1 1.10 10*3/?L. The re ference range was not u sed to interpret this result as normal/abnor mal. RBC (test code = See_Comment [Automated message] 229-8) The system [employer] generated this result transmitted ref erence range: [...] RDW-SD (test code 40.4 fL 39-49.9 = 82402-5) RDW-CV (test code 13.0 % 12-15.5 = 788-0) PLT (test code = See_Comment [Automated message] 7-3) The system [employer] generated this result transmitted ref erence range: 166 - 35 8 10*3/?L. The re ference range was not u sed to interpret this result as normal/abnor mal. MPV (test code = 10.6 fL 9.5-12.9 46673-8) NRBC/100 WBC (test See_Comment [Automat ed message] code = 4320608416) The [employer] which generated this result transmitted ref erence range: 0.0 - 10 .0 /100 WBCs. The refer ence range was not u sed to interpret this result as normal/abnor mal. NRBC x10^3 (test <0.01 See_Comment [Automated message] code = 6121138476) The syste m which generated this result transmitted ref erence range: 10*3/?L. The reference range was not used to interpr et this result as normal/abnormal . GRAN MAT (NEUT) % 57.7 % (test code = 770-8) IMM GRAN % (test 0.40 % code = 9073875349) LYMPH % (test code 32.1 % = 736-9) MONO % (test code 7.4 % = 5905-5) EOS % (test code = 2.1 % 713-8) BASO % (test code 0.3 % = 706-2) GRAN MAT 4.61 10*3/uL 1.88-7.09 x10^3(ANC) (test code = 9519307141) IMM GRAN x10^3 0.03 10*3/uL 0-0.06 (test code = 2764502189) LYMPH x10^3 (test 2.56 10*3/uL 1.32-3.29 code = 731-0) MONO x10^3 (test 0.59 10*3/uL 0.33-0.92 code = 742-7) EOS x10^3 (test 0.17 10*3/uL 0.03-0.39 code = 711-2) BASO x10^3 (test <0.03 0.01-0.07 code = 704-7) [facility] [id number] 00:09:00 Test Item Value Reference Range Interpretation Comments POCT PREG (test code = 1605) negative On board controls acceptable with present C Line (test code = 3574) POCT PREG LOT # (test code = 3575) [id number] POCT PREG TEST DATE (test 01/08/2022 code = 3576) Lab Interpretation (test code = Normal 09053-4) [facility]
[2022-04-05 12:23] LABS: SARS-COV-2 RT PCR NEGATIVE (NEGATIVE)
--- NOTE | 2022-04-05 12:30 | ER ---
Nurse's Notes [facility] Name: Letty Hall Age: 26 yrs Sex: Female : 1995 Arrival Date: 04/05/2022 Time: 11:16 Bed IW3 Private MD: Diagnosis: Acute upper respiratory infection, unspecified;Cough;Myalgia Presentation: 04/05 11:31 Chief complaint: Patient states: Sneezing, coughing, body aches, nausea since kb3 yesterday. Denies fever. Coronavirus screen: Vaccine status: Patient reports being unvaccinated. Client denies travel out of the [place] in the last 14 days. Ebola Screen: Patient negative for fever greater than or equal to 101.5 degrees Fahrenheit, and additional compatible Ebola Virus Disease symptoms Patient denies exposure to infectious person. Patient denies travel to an Ebola-affected area in the 21 days before illness onset. Initial Sepsis Screen: Does the patient meet any 2 criteria? No. Patient's initial sepsis screen is negative. Does the patient have a suspected source of infection? No. Patient's initial sepsis screen is negative. Risk Assessment: Do you want to hurt yourself or someone else? Patient reports no desire to harm self or others. Onset of symptoms was April 04, 2022. 11:31 Method Of Arrival: Ambulatory kb3 11:31 Acuity: BHAKTI 4 kb3 Triage Assessment: 11:33 General: Appears in no apparent distress. Behavior is calm, cooperative. Pain: kb3 Complains of pain in forehead Pain does not radiate. Pain currently is 6 out of 10 on a pain scale. GI: Reports nausea. [employer]: 11:33 LMP 02/22/2022 kb3 Historical: - Allergies: 11:33 Haldol; kb3 11:33 VANCOMYCIN AND DERIVATIVES; kb3 - Home Meds: 11:33 Vitamin Oral tab 1 tab once daily [Active]; kb3 - PMHx: 11:33 Anxiety; Depression; GERD; hypocalcemia; hypoparathyroidism; psuedo cranial kb3 hypertension; Sinus Tachycardia; - PSHx: 11:33 Cholecystectomy; DNC X 2; Tonsillectomy; kb3 - Immunization history:: Adult Immunizations up to date, Client reports having NOT received the Covid vaccine. Last tetanus immunization: unknown. - Social history:: Smoking status: Patient reports the use of cigarette tobacco products, smokes one-half pack cigarettes per day. Screenin:41 Abuse screen: Denies threats or abuse. Denies injuries from another. Nutritional kb3 screening: No deficits noted. Tuberculosis screening: No symptoms or risk factors identified. Fall Risk None identified. Assessment: 12:40 General: Appears in no apparent distress. comfortable. Neuro: Level of Consciousness is kb3 awake, alert, obeys commands, Oriented to person, place, time, situation. Cardiovascular: Patient's skin is warm and dry. Respiratory: Airway is patent Respiratory effort is even, unlabored. Musculoskeletal: Circulation, motion, and sensation intact. Vital Signs: 11:31 BP 134 / 95; Pulse 105; Resp 20; Temp 98.5; Pulse Ox 98% ; Weight 122.47 kg; Height 5 kb3 ft. 5 in. (165.10 cm); Pain 6/10; 11:31 Body Mass Index 44.93 (122.47 kg, 165.10 cm) kb3 ED Course: 11:16 Patient arrived in ED. as 11:16 Turner Martinez DO is Attending Physician. ms3 11:33 Triage completed. kb3 11:33 Arm band placed on left wrist. kb3 11:39 COVID-19/FLU A+B Sent. zm 12:29 Rocael Giordano DO is Referral Physician. ms3 12:41 Patient has correct armband on for positive identification. kb3 12:41 No provider procedures requiring assistance completed. Patient did not have IV access kb3 during this emergency room visit. Administered Medications: No medications were administered Medication: 12:41 VIS not applicable for this client. kb3 Outcome: 12:29 Discharge ordered by MD. ms3 12:40 Discharged to home ambulatory. kb3 12:40 Condition: good 12:40 Discharge instructions given to patient, Instructed on discharge instructions, follow up and referral plans. medication usage, Demonstrated understanding of instructions, follow-up care, medications, Prescriptions given X 1. 12:42 Patient left the ED. kb3 Signatures: Kennedi Wheatley Marcus, DO DO ms3 Celestina Wheatley Kelly, RN RN kb3
--- NOTE | 2022-04-05 12:30 | EDPHYS ---
Physician Documentation [facility] Name: Letty Hall Age: 26 yrs Sex: Female : 1995 Arrival Date: 04/05/2022 Time: 11:16 Bed IW3 Private MD: ED Physician Turner Martinez HPI: 04/05 12:32 This 26 yrs old Female presents to ER via Ambulatory with complaints of Cough, Nausea. ms3 12:32 The patient or guardian reports cough, that is intermittent, flu symptoms, arthralgias, ms3 myalgias. Onset: The symptoms/episode began/occurred yesterday. Severity of symptoms: At their worst the symptoms were moderate, in the emergency department the symptoms are unchanged. Modifying factors: The symptoms are alleviated by nothing, the symptoms are aggravated by nothing. Associated signs and symptoms: Pertinent positives: nausea, Pertinent negatives: chest pain, fever, vomiting. Patient states several people she was with at [facility] have similar symptoms. [employer]: 11:33 LMP 02/22/2022 kb3 Historical: - Allergies: 11:33 Haldol; kb3 11:33 VANCOMYCIN AND DERIVATIVES; kb3 - Home Meds: 11:33 Vitamin Oral tab 1 tab once daily [Active]; kb3 - PMHx: 11:33 Anxiety; Depression; GERD; hypocalcemia; hypoparathyroidism; psuedo cranial kb3 hypertension; Sinus Tachycardia; - PSHx: 11:33 Cholecystectomy; DNC X 2; Tonsillectomy; kb3 - Immunization history:: Adult Immunizations up to date, Client reports having NOT received the Covid vaccine. Last tetanus immunization: unknown. - Social history:: Smoking status: Patient reports the use of cigarette tobacco products, smokes one-half pack cigarettes per day. ROS: 12:32 ENT: Negative for injury, pain, and discharge, Neck: Negative for injury, pain, and ms3 swelling, Cardiovascular: Negative for chest pain, and palpitations. 12:32 Abdomen/GI: Negative for abdominal pain, nausea, vomiting, diarrhea, and constipation, Skin: Negative for injury, rash, and discoloration. 12:32 Constitutional: Positive for body aches, chills. 12:32 Respiratory: Positive for cough. 12:32 All other systems are negative. Exam: 12:32 Constitutional: This is a well developed, well nourished patient who is awake, alert, ms3 and in no acute distress. Head/Face: Normocephalic, atraumatic. Neck: Trachea midline, no cervical lymphadenopathy. Supple, full range of motion without nuchal rigidity, or vertebral point tenderness. No Meningismus. Chest/axilla: Normal chest wall appearance and motion. Nontender with no deformity. Respiratory: Lungs have equal breath sounds bilaterally, clear to auscultation and percussion. No rales, rhonchi or wheezes noted. No increased work of breathing, no retractions or nasal flaring. Abdomen/GI: Soft, non-tender, with normal bowel sounds. No distension or tympany. No guarding or rebound. No evidence of tenderness throughout. 12:32 Skin: Warm, dry with normal turgor. Normal color with no rashes, no lesions, and no evidence of cellulitis. 12:32 Cardiovascular: Rate: tachycardic, Rhythm: regular, Pulses: no pulse deficits are appreciated, Heart sounds: normal, normal S1and S2, no S3 or S4. Vital Signs: 11:31 BP 134 / 95; Pulse 105; Resp 20; Temp 98.5; Pulse Ox 98% ; Weight 122.47 kg; Height 5 kb3 ft. 5 in. (165.10 cm); Pain 6/10; 11:31 Body Mass Index 44.93 (122.47 kg, 165.10 cm) kb3 MDM: 11:42 Patient medically screened. ms3 12:32 Differential Diagnosis: Bronchitis Influenza Upper Respiratory Infection. Data ms3 reviewed: vital signs, nurses notes, lab test result(s), and as a result, I will discharge patient. Counseling: I had a detailed discussion with the patient and/or guardian regarding: the historical points, exam findings, and any diagnostic results supporting the discharge/admit diagnosis, lab results. ED course: Discussed lab results with patient. Patient to follow-up with primary care physician in 2 to 3 days. Patient understands agrees plan. All questions were answered. Return precautions discussed include worsening symptoms, or any other concerns. 04/05 11:37 Order name: COVID-19/FLU A+B; Complete Time: 12:25 kb3 Administered Medications: No medications were administered Disposition Summary: 04/05/22 12:29 Discharge Ordered Location: Home ms3 Condition: Stable ms3 Diagnosis - Acute upper respiratory infection, unspecified ms3 - Cough ms3 - Myalgia ms3 Followup: ms3 - With: Rocael Giordano DO - When: 2 - 3 days - Reason: Recheck today's complaints Discharge Instructions: - Discharge Summary Sheet ms3 - Viral Respiratory Infection, Arkd-Cy-Atee ms3 Forms: - Medication Reconciliation Form ms3 - Thank You Letter ms3 - Antibiotic Education ms3 - Prescription Opioid Use ms3 Prescriptions: - Loratadine 10 mg Oral Tablet - take 1 tablet by ORAL route once daily; 14 tablet; Refills: 0, Product ms3 Selection Permitted Signatures: Dispatcher [employer] EDMS Turner Martinez DO DO ms3 Leola Ventura, RN RN kb3
[2022-04-05 12:52] VITALS: BP 134/95; TEMP 98.5; O2SAT 98
== END 2022-04-05 12:42 | disposition home or self-care (01) ==
LOC: ER 11:12
DX: J06.9 Acute upper respiratory infection, unspecified (principal); M79.10 Myalgia, unspecified site; F17.210 Nicotine dependence, cigarettes, uncomplicated; Z20.822 Contact with and (suspected) exposure to COVID-19; Z88.3 Allergy status to other anti-infective agents; Z88.5 Allergy status to narcotic agent
CPT/HCPCS: 0240U; 99283

== ENCOUNTER 2022-10-08 11:07 | Emergency (ER) | payer BC, OTHER ==
--- OUTSIDE RECORDS SUMMARY | 2022-10-08 11:14 | XMS REPORT | Continuity of Care Document ---
:1995 Author Organization [facility] t Address [address] [facility] [place] [place] [address] Care Team Providers Name Role Phone Louis Rahman MD, [facility] Primary Care Physician [phone] Rosalva Norris Attending Clinician Unavailable Nayan Barnhart Attending Clinician Unavailable ISAIAH FARRELL Attending Clinician Unavailable AYE NEWSOME Attending Clinician Unavailable Aye Newsome NP Attending Clinician MARISSA HORN Attending Clinician Unavailable MARISSA HORN Attending Clinician Unavailable Nurse, [facility] Attending Clinician Unavailable Doctor Unassigned, [place] Attending Clinician Unavailable KOKI SOTO Attending Clinician Unavailable BETH DÍAZ Attending Clinician Unavailable PENNIE_Delvin Attending Clinician Unavailable Nisa Brown Attending Clinician [phone] Dao Hines Attending Clinician G_Pappas Attending Clinician Unavailable Deanna Anthony Attending Clinician SANDEEP HOSKINS Attending Clinician Unavailable Nayan Barnhart Admitting Clinician Unavailable ANAUBSHERWINECK_L Admitting Clinician Unavailable G_[place] Admitting Clinician Unavailable YAYA SPICER Admitting Clinician Unavailable Payers Payer Name Policy Type Policy Number Effective Date Expiration Date [facility] [id number] 2022 2023 COMM 00:00:00 00:00:00 [facility] MILAN [id number] 2022 00:00:00 PETE AL - [id number] [place] [id number] ([facility] [place] - [id number] WOMEN'S HEALTH PROGRAM (MEDICAID) Problems Condition Condition Condition Status Onset Resolution Last Treating Co mments Source Name Details Category Date Date Treatment Clinician Date Female Female Disease Active Univers infertilit infertilit 09 it y of y y 00:00: [place] associated associated 00 Me dical with with Branch anovulatio anovulatio n n Pain in Pain in Problem Active [facility] throat Throat 11-20 [facility] Fever Fever Problem Active [facility] 11-20 [facility] Wheezing Wheezing Problem Active [place] 11[facility] COVID-19 Covid-19 Problem Active [place] 7-13 [facility] 00[facility]: [facility] 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 [place] depressive [place] disorder disorder 00 Med[place] Branch Mastoiditi Mastoiditi Disease Active U nivers s of both s of both 6-07 ity of sides sides 00:00: [place] [address] Medical Branch 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 [...] (BMI 7-28 ity of 30-39.9) 30-39.9) 00:00: [place] [address] Medical Branch S/P S/P Disease Active Univers cholecyste cholecyste 3-04 it y of ctomy ctomy 00:00: [place] [facility] Blurred Blurred Disease Active Univers vision vision 1-15 ity of 00:00: [place] [address] Medical Branch Allergies, Adverse Reactions, Alerts Allergy Allergy Status Severity Reaction(s) Onset Inactive Treating Comm ents Source Name Type Date Date Clinician [place]i DA Active [place] [facility] Clear 00:00: 00 [facility] vancomyc DA Active [place] [facility] in 4-27 Clear 00:00: 00 [facility]operi DA Active [place] [facility] dol 4-27 Clear 00:00: 00 [facility] vancomyc DA Active [place] [facility] in 4-27 Clear 00:00: 00 [facility] Haloperi Propensi Active Anaphylaxis U nivers dol ty to 09-08 ity of Lactate adverse 00:00: [place] reaction 00 Medical s Branch HALOPERI DRUG Active Anaphylaxis Uni vers DOL INGREDI 09-08 ity of LACTATE 00:00: [place] 00 Medical Branch Haloperi Propensi Active 2016-05 Method [...] ity of 00:00: [place] 00 Medical Branch HALDOL Allergy Active Moderate Other [facility] to Communi substanc [facility] e [facility]osp[facility] Clinics Vancomyc Allergy Active Moderate Other [place] in to Communi substanc ty e Hospita l Clinics Family History Family Member Diagnosis Comments Start Date Stop Date Source Maternal aunt [facility] Maternal aunt Suicide Attempts [facility] Natural mother Depression [facility] Natural mother Suicide Attempts [facility] Social History Social Habit Start Date Stop Date Quantity Comments Source History of tobacco Cigarette Smoker University of use [facility] Gender identity [facility] Sexual orientation [facility] Exposure to 2022-07-16 2022-07-26 Not sure University of SARS-CoV-2 (event) 00:00:00 17:54:00 [facility] Tobacco use and 2022-05-19 2022-05-19 User of Universit y of exposure 00:00:00 00:00:00 smokeless [facility] Cigarettes smoked 2022-05-19 2022-05-19 Univers ity of current (pack per 00:00:00 00:00:00 ) - Reported Branch Alcohol intake 2019-02-20 2019-02-20 Current drinker [facility] 00:00:00 00:00:00 of alcohol Hospital (finding) History of Social 2019-02-19 2019-02-[address] function 00:00:00 00:00:00 Hospital Alcohol Comment 2019-02-19 2019-02-19 drinks casually, Met [facility]odist 00:00:00 00:00:00 once a month, 3 Hospital X a year Sex Assigned At [birth year] [facility] 00[facility] Hospital Smoking Status Start Date Stop Date Source Heavy Tobacco Smoker Manny Aguilar [facility] Smokes tobacco daily 2022-05-19 00:00:00 Univers ity of [facility] Medications Ordered Filled Start Stop Current Ordering Indication Dosage Frequency Signature Comments Components Source Medication Medication Date Date Medication? Clinician (SIG) Name Name benzonatate Yes [id number] 200mg Take 2 Univers 100 mg 3-18 capsules ity of capsule 00:00[place] ([place] Medical times Branch daily as needed for Cough. ofloxacin 2022- Yes [id number] 5[drp] Place 5 Univers 0.3 % otic -18 03-29 Drops in ity of drops 00:00: 04:59 right ear [place] 00 :00 in the Medical morning Branch and 5 Drops in the evening. Do all this for 10 days. diclofenac 2022- Yes [id number] 50mg Take 1 Univers 50 mg 3-18 03-24 tablet by ity of tablet 00:00: 04:59 mouth in [place] 00 :00 the Medical morning Branch and 1 tablet at noon and 1 tablet in the evening. Do all this for 5 days. calcitrioL Yes .5ug Take 0.5 Uni vers 0.5 mcg 1-09 mcg by ity of capsule 08:37: mouth. [place] [address] Medical Branch calcium Yes 5{tbl} Take 5 Univer s carbonate 1-09 tablets by ity of 500 mg 08:37: mouth. [place] calcium 19 Medical (1,250 mg) Branch capsule 2023-0 Yes Take by Univer s vit 1-09 mouth. ity of no.124/iron 08:37: [place] /folic 19 Medical ( Branch VITAMIN ORAL) calcitrioL 2022-0 Yes .5ug Take 0.5 Uni vers 0.5 mcg 1-09 mcg by ity of capsule 08:37: mouth. [place] 19 Medical Branch calcium 2022-0 Yes 5{tbl} Take 5 Univer s carbonate 1-09 tablets by ity of 500 mg 08:37: mouth. [place] calcium 19 Medical (1,250 mg) Branch capsule 0 Yes Take by Univer s vit 1-09 mouth. ity of no.124/iron 08:37: [place] /folic 19 Medical ( Branch VITAMIN ORAL) calcitrioL 0 Yes .5ug Take 0.5 Uni vers 0.5 mcg 1-09 mcg by ity of capsule 08:37: mouth. [place] 19 Medical Branch calcium 2022-0 Yes 5{tbl} Take 5 Univer s carbonate 1-09 tablets by ity of 500 mg 08:37: mouth. [place] calcium 19 Medical (1,250 mg) Branch capsule 0 Yes Take by Univer s vit 1-09 mouth. ity of no.124/iron 08:37: [place] /folic 19 Medical ( Branch VITAMIN ORAL) calcitrioL 2022-0 Yes .5ug Take 0.5 Uni vers 0.5 mcg 1-09 mcg by ity of capsule 08:37: mouth. [place] 19 Medical Branch calcium 2022-0 Yes 5{tbl} Take 5 [facility] s carbonate 1-09 tablets by ity of 500 mg 08:37: mouth. [place] calcium 19 Medical (1,250 mg) Branch capsule 0 Yes Take by Univer s vit 1-09 mouth. ity of no.124/iron 08:37: [place] /folic 19 Medical ( Branch VITAMIN ORAL) calcitrioL 2022-0 Yes .5ug Take 0.5 Uni vers 0.5 mcg 1-09 mcg by ity of capsule 08:37: mouth. [place] 19 Medical Branch calcium 2022-0 Yes 5{tbl} Take 5 Univer s carbonate 1-09 tablets by ity of 500 mg 08:37: mouth. [place] calcium 19 Medical (1,250 mg) Branch capsule 2023-0 Yes Take by Univer s vit 1-09 mouth. ity of no.124/iron 08:37: [place] /folic 19 Medical ( Branch VITAMIN ORAL) calcitrioL 2022-0 Yes .5ug Take 0.5 Uni vers 0.5 mcg 1-09 mcg by ity of capsule 08:37: mouth. [place] 19 Medical Branch calcium 2022-0 Yes 5{tbl} Take 5 [facility] NovoED carbonate 1-09 tablets by ity of 500 mg 08:37: mouth. [place] calcium 19 Medical (1,250 mg) Branch capsule 2022-0 Yes Take by [facility] vit 1-09 mouth. ity of no.124/iron 08:37: [place] /folic 19 Medical ( Branch VITAMIN ORAL) calcitrioL 2022-0 Yes .5ug Take 0.5 Uni vers 0.5 mcg 1-09 mcg by ity of capsule 08:37: mouth. [place] [address] Medical Branch calcium 2022-0 Yes 5{tbl} Take 5 [facility] carbonate 1-09 tablets by ity of 500 mg 08:37: mouth. [place] calcium 19 Medical (1,250 mg) Branch capsule 0 Yes Take by [facility] vit 1-09 mouth. ity of no.124/iron 08:37: [place] /folic 19 Medical ( Branch VITAMIN ORAL) calcitrioL 2022-0 Yes .5ug Take 0.5 Uni vers 0.5 mcg 1-09 mcg by ity of capsule 08:37: mouth. [place] [address] Medical Branch calcium 2022-0 Yes 5{tbl} Take 5 [facility] carbonate 1-09 tablets by ity of 500 mg 08:37: mouth. [place] calcium 19 Medical (1,250 mg) Branch capsule 0 Yes Take by [facility] vit 1-09 mouth. ity of no.124/iron 08:37: [place] /folic 19 Medical ( Branch VITAMIN ORAL) clonazePAM 2022-0 Yes 1mg Take 1 mg Un [place] 1 mg tablet 1-09 by mouth 3 it y of 08:36: (three) [place] 34 times Medical daily. Branch acetaZOLAMI 2022-0 Yes 300mg Take 300 U nivers DE 250 mg 1-09 mg by ity of tablet 08:36: mouth 2 [place] 34 (two) Medical times Branch daily. vilazodone 2022-0 Yes 20mg Take 20 mg U nivers 20 mg 1-09 by mouth ity of 08:36: daily. [place] [address] Medical Branch vortioxetin 2022-0 Yes Take by Uni vers e 10 mg Tab 1-09 mouth ity of 08:36: daily. [place] [address] Medical Branch topiramate 2022-0 Yes 25mg Take 25 mg U nivers 25 mg 1-09 by mouth ity of tablet 08:36: daily. [address] Branch CALCIUM 2022-0 Yes 2500mg Take 2,500 Un [place] CARBONATE 1-09 mg by ity of (TUMS ORAL) 08:36: mouth 2 [place] (two) Medical times Branch daily. magnesium 2022-0 Yes 400mg Take 400 Uni vers oxide 400 1-09 mg by ity of mg tablet 08:36: mouth [place] 34 daily. Medical Branch cholecalcif 2022-0 Yes 1000U Take 1,000 Univers hira, 1-09 Units by ity of vitamin D3, 08:36: mouth [place] 25 [facility] 34 daily. Medical (1,000 Branch unit) tablet POTASSIUM 0 Yes 75mg 75 mg Univers CHLORIDE -09 daily. ity of MISC 08:36: Indication [place] [address] s: OTC Medical Branch GUAIFENESIN 0 Yes Take by Uni vers ORAL 1-09 mouth. ity of 08:36: [address] Branch clonazePAM 2022-0 Yes 1mg Take 1 mg Un [place] 1 mg tablet -09 by mouth 3 it y of 08:36: (three) [place] [address] times Medical daily. Branch acetaZOLAMI 0 Yes 300mg Take 300 U nivers DE 250 mg 1-09 mg by ity of tablet 08:36: mouth 2 [place] [address] (two) Medical times Branch daily. vilazodone 2022-0 Yes 20mg Take 20 mg U nivers 20 mg 1-09 by mouth ity of 08:36: daily. [place] [address] Medical Branch vortioxetin 2022-0 Yes Take by Uni vers e 10 mg Tab 1-09 mouth ity of 08:36: daily. [place] [address] Medical Branch topiramate 2022-0 Yes 25mg Take 25 mg U nivers 25 mg 1-09 by mouth ity of tablet 08:36: daily. [place] [address] Medical Branch CALCIUM 2022-0 Yes 2500mg Take 2,500 Un [place] CARBONATE 1-09 mg by ity of (TUMS ORAL) 08:36: mouth 2 [place] 34 (two) Medical times Branch daily. magnesium 3-0 Yes 400mg Take 400 Uni vers oxide 400 1-09 mg by ity of mg tablet 08:36: mouth [place] 34 daily. Medical Branch cholecalcif 2022-0 Yes 1000U Take 1,000 Univers hira, 1-09 Units by ity of vitamin D3, 08:36: mouth [place] 25 mcg 34 daily. Medical (1,000 Branch unit) tablet POTASSIUM 2022-0 Yes 75mg 75 mg Univers CHLORIDE 1-09 daily. ity of MISC 08:36: Indication [place] 34 s: OTC Medical Branch GUAIFENESIN 2022-0 Yes Take by Uni vers ORAL 1-09 mouth. ity of 08:36: [place] [address] Medical Branch clonazePAM 2022-0 Yes 1mg Take 1 mg Un [place] 1 mg tablet 1-09 by mouth 3 it y of 08:36: (three) [place] [address] times Medical daily. Branch acetaZOLAMI 2022-0 Yes 300mg Take 300 U nivers DE 250 mg 1-09 mg by ity of tablet 08:36: mouth 2 [place] 34 (two) Medical times Branch daily. vilazodone 2022-0 Yes 20mg Take 20 mg U nivers 20 mg 1-09 by mouth ity of 08:36: daily. [address] Branch vortioxetin 2022-0 Yes Take by Uni vers e 10 mg Tab 1-09 mouth ity of 08:36: daily. [address] Branch topiramate 2022-0 Yes 25mg Take 25 mg U nivers 25 mg 1-09 by mouth ity of tablet 08:36: daily. [address] Branch CALCIUM 2022-0 Yes 2500mg Take 2,500 Un [place] CARBONATE 1-09 mg by ity of (TUMS ORAL) 08:36: mouth 2 [place] 34 (two) Medical times Branch daily. magnesium 3-0 Yes 400mg Take 400 Uni vers oxide 400 1-09 mg by ity of mg tablet 08:36: mouth [place] 34 daily. Medical Branch cholecalcif 2022-0 Yes 1000U Take 1,000 Univers hira, 1-09 Units by ity of vitamin D3, 08:36: mouth [place] 25 mcg 34 daily. Medical (1,000 Branch unit) tablet POTASSIUM 2023-0 Yes 75mg 75 mg Univers CHLORIDE 1-09 daily. ity of MISC 08:36: Indication [place] [address] s: OTC Medical Branch GUAIFENESIN 2022-0 Yes Take by Uni vers ORAL 1-09 mouth. ity of 08:36: [place] [address] Medical Branch clonazePAM 2022-0 Yes 1mg Take 1 mg Un [place] 1 mg tablet 1-09 by mouth 3 it y of 08:36: (three) [place] [address] times Medical daily. Branch acetaZOLAMI 2022-0 Yes 300mg Take 300 U nivers DE 250 mg 1-09 mg by ity of tablet 08:36: mouth 2 [place] 34 (two) Medical times Branch daily. vilazodone 2022-0 Yes 20mg Take 20 mg U nivers 20 mg 1-09 by mouth ity of 08:36: daily. [place] [address] Medical Branch vortioxetin 2022-0 Yes Take by Uni vers e 10 mg Tab 1-09 mouth ity of 08:36: daily. [place] [address] Medical Branch topiramate 2022-0 Yes 25mg Take 25 mg U nivers 25 mg 1-09 by mouth ity of tablet 08:36: daily. [place] [address] Medical Branch CALCIUM 2022-0 Yes 2500mg Take 2,500 Un [place] CARBONATE 1-09 mg by ity of (TUMS ORAL) 08:36: mouth 2 [place] 34 (two) Medical times Branch daily. magnesium 3-0 Yes 400mg Take 400 Uni vers oxide 400 1-09 mg by ity of mg tablet 08:36: mouth [place] 34 daily. Medical Branch cholecalcif 2022-0 Yes 1000U Take 1,000 Univers hira, 1-09 Units by ity of vitamin D3, 08:36: mouth [place] 25 mcg 34 daily. Medical (1,000 Branch unit) tablet POTASSIUM 3-0 Yes 75mg 75 mg Univers CHLORIDE 1-09 daily. ity of MISC 08:36: Indication [place] [address] s: OTC Medical Branch GUAIFENESIN 2022-0 Yes Take by Uni vers ORAL 1-09 mouth. ity of 08:36: [place] [address] Medical Branch clonazePAM 2022-0 Yes 1mg Take 1 mg Un [place] 1 mg tablet 1-09 by mouth 3 it y of 08:36: (three) [place] [address] times Medical daily. Branch acetaZOLAMI 2022-0 Yes 300mg Take 300 U nivers DE 250 mg 1-09 mg by ity of tablet 08:36: mouth 2 [place] [address] (two) Medical times Branch daily. vilazodone 2022-0 Yes 20mg Take 20 mg U nivers 20 mg 1-09 by mouth ity of 08:36: daily. [place] [address] Medical Branch vortioxetin 2022-0 Yes Take by Uni vers e 10 mg Tab 1-09 mouth ity of 08:36: daily. [place] [address] Medical Branch topiramate 2022-0 Yes 25mg Take 25 mg U nivers 25 mg 1-09 by mouth ity of tablet 08:36: daily. [place] [address] Medical Branch CALCIUM 2022-0 Yes 2500mg Take 2,500 Un [place] CARBONATE 1-09 mg by ity of (TUMS ORAL) 08:36: mouth 2 [place] [address] (two) Medical times Branch daily. magnesium 2022-0 Yes 400mg Take 400 Uni vers oxide 400 1-09 mg by ity of mg tablet 08:36: mouth [place] 34 daily. Medical Branch cholecalcif 0 Yes 1000U Take 1,000 Univers hira, 1-09 Units by ity of vitamin D3, 08:36: mouth [place] 25 mcg 34 daily. Medical (1,000 Branch unit) tablet POTASSIUM 0 Yes 75mg 75 mg Univers CHLORIDE -09 daily. ity of MISC 08:36: Indication [place] [address] s: OTC Medical Branch GUAIFENESIN 0 Yes Take by Uni vers ORAL 1-09 mouth. ity of 08:36: [place] [address] Medical Branch clonazePAM 2022-0 Yes 1mg Take 1 mg Un [place] 1 mg tablet -09 by mouth 3 it y of 08:36: (three) [place] [address] times Medical daily. Branch acetaZOLAMI 2022-0 Yes 300mg Take 300 U nivers [place] 250 mg 1-09 mg by ity of tablet 08:36: mouth 2 [place] [address] (two) Medical times Branch daily. vilazodone 2022-0 Yes 20mg Take 20 mg U nivers 20 mg 1-09 by mouth ity of 08:36: daily. [place] [address] Medical Branch vortioxetin 2022-0 Yes Take by Uni vers e 10 mg Tab 1-09 mouth ity of 08:36: daily. [place] [address] Medical Branch topiramate 2022-0 Yes 25mg Take 25 mg U nivers 25 mg 1-09 by mouth ity of tablet 08:36: daily. [address] Branch CALCIUM 2022-0 Yes 2500mg Take 2,500 Un [place] CARBONATE 1-09 mg by ity of (TUMS ORAL) 08:36: mouth 2 [place] 34 (two) Medical times Branch daily. magnesium 2022-0 Yes 400mg Take 400 Uni vers oxide 400 1-09 mg by ity of mg tablet 08:36: mouth [place] 34 daily. Medical Branch cholecalcif 2022-0 Yes 1000U Take 1,000 Univers hira, 1-09 Units by ity of vitamin D3, 08:36: mouth [place] 25 mcg 34 daily. Medical (1,000 Branch unit) tablet POTASSIUM 2022-0 Yes 75mg 75 mg Univers CHLORIDE 1-09 daily. ity of MISC 08:36: Indication [place] [address] s: OTC Medical Branch GUAIFENESIN 2022-0 Yes Take by Uni vers ORAL 1-09 mouth. ity of 08:36: [address] Branch clonazePAM 2022-0 Yes 1mg Take 1 mg Un [place] 1 mg tablet 1-09 by mouth 3 it y of 08:36: (three) [place] [address] times [facility] daily. Branch acetaZOLAMI 2022-0 Yes 300mg Take 300 U nivers [place] 250 mg 1-09 mg by ity of tablet 08:36: mouth 2 [place] [address] (two) Medical times Branch daily. vilazodone 2022-0 Yes 20mg Take 20 mg U nivers 20 mg 1-09 by mouth ity of 08:36: daily. [address] Branch vortioxetin 2022-0 Yes Take by Uni vers e 10 mg Tab 1-09 mouth ity of 08:36: daily. [place] [address] Medical Branch topiramate 2022-0 Yes 25mg Take 25 mg U nivers 25 mg 1-09 by mouth ity of tablet 08:36: daily. [address] Branch CALCIUM 2022-0 Yes 2500mg Take 2,500 Un [place] CARBONATE 1-09 mg by ity of (TUMS ORAL) 08:36: mouth 2 [place] 34 (two) Medical times Branch daily. magnesium 2022-0 Yes 400mg Take 400 Uni vers oxide 400 1-09 mg by ity of mg tablet 08:36: mouth [place] 34 daily. Medical Branch cholecalcif 2022-0 Yes 1000U Take 1,000 Univers hira, 1-09 Units by ity of vitamin D3, 08:36: mouth [place] 25 mcg 34 daily. Medical (1,000 Branch unit) tablet POTASSIUM 2022-0 Yes 75mg 75 mg Univers CHLORIDE 1-09 daily. ity of MISC 08:36: Indication [place] 34 s: OTC Medical Branch GUAIFENESIN 2022-0 Yes Take by Uni vers ORAL 1-09 mouth. ity of 08:36: [place] [address] Medical Branch clonazePAM 2022-0 Yes 1mg Take 1 mg Un [place] 1 mg tablet 1-09 by mouth 3 it y of 08:36: (three) [place] [address] times Medical daily. Branch acetaZOLAMI 2022-0 Yes 300mg Take 300 U nivers [place] 250 mg 1-09 mg by ity of tablet 08:36: mouth 2 [place] 34 (two) Medical times [place] daily. vilazodone 2022-0 Yes 20mg Take 20 mg U nivers 20 mg 1-09 by mouth ity of 08:36: daily. [place] [address] Medical Branch vortioxetin 2022-0 Yes Take by Uni vers e 10 mg Tab 1-09 mouth ity of 08:36: daily. [place] [address] Medical Branch topiramate 2022-0 Yes 25mg Take 25 mg U nivers 25 mg -09 by mouth ity of tablet 08:36: daily. [place] [address] Medical Branch CALCIUM 2022-0 Yes 2500mg Take 2,500 Un [place] CARBONATE 1-09 mg by ity of (TUMS ORAL) 08:36: mouth 2 [place] 34 (two) Medical times Branch daily. magnesium 3-0 Yes 400mg Take 400 Uni vers oxide 400 1-09 mg by ity of mg tablet 08:36: mouth [place] 34 daily. Medical Branch cholecalcif 2022-0 Yes 1000U Take 1,000 Univers hira, 1-09 Units by ity of vitamin D3, 08:36: mouth [place] 25 mcg 34 daily. Medical (1,000 Branch unit) tablet POTASSIUM 2022-0 Yes 75mg 75 mg Univers CHLORIDE 1-09 daily. ity of MISC 08:36: Indication [place] 34 s: OTC Medical Branch GUAIFENESIN 2022-0 Yes Take by Uni vers ORAL 1-09 mouth. ity of 08:36: [place] 34 Medical Branch HYDROcodone 2020- No 1{tbl} 1 tablet, Univers -acetaminop 05-23 Oral, ity of hen (NORCO 02:30: 01:27 ONCE, 1 [place] 5) 5-325 mg 00 :00 dose, Tue Med ical tablet 1 05/22/20 at [facility] h tablet 2030, LAIMN iohexol 2020- No 120mL 120 mL, Unive rs (OMNIPAQUE 05-23 Intravenou it y of 350 01:00: 00:38 s, ONCE, 1 [place] BULK-100 00 :00 dose, Tue Medica l mL) 05/22/20 at [place] injection 1900, 120 mL Routine NaCl 0.9% 2020- No 1000mL at 999 Uni vers (NS) bolus 05-22 mL/hr, ity of infusion 23:30: 01:55 1,000 mL, [place] 1,000 mL 00 :00 IV Medical Infusion, Branch ONCE, 1 dose, 05/22/20 at 1730, LAMIN dicyclomine Yes [id number] 10mg Take 1 Univers (BENTYL) 10 1-12 capsule by it y of mg capsule 00:00: mouth 4 [place] (four) Medical times Branch daily as needed for Abdominal pain. ondansetron Yes [id number] 4mg Take 1 Univers 4 mg 1-12 tablet by ity of disintegrat 00:00: mouth [place] ing tablet 00 every 12 Medic al (twelve) Branch hours as needed for Nausea and Vomiting (N/V). dicyclomine Yes [id number] 10mg Take 1 Univers (BENTYL) 10 1-12 capsule by it y of mg capsule 00:00: mouth 4 [place] (four) Medical times Branch daily as needed for Abdominal pain. ondansetron Yes [id number] 4mg Take 1 Univers 4 mg 1-12 tablet by ity of disintegrat 00:00: mouth [place] ing tablet 00 every 12 Medic al (twelve) Branch hours as needed for Nausea and Vomiting (N/V). dicyclomine Yes [id number] 10mg Take 1 Univers (BENTYL) 10 1-12 capsule by it y of mg capsule 00:00: mouth 4 [place] (four) Medical times Branch daily as needed for Abdominal pain. ondansetron 2020-0 Yes [id number] 4mg Take 1 Univers 4 mg 1-12 tablet by ity of disintegrat 00:00: mouth [place] ing tablet 00 every 12 Medic al (twelve) Branch hours as needed for Nausea and Vomiting (N/V). dicyclomine 2020-0 Yes [id number] 10mg Take 1 Univers (BENTYL) 10 1-12 capsule by it y of mg capsule 00:00: mouth 4 [place] (four) Medical times Branch daily as needed for Abdominal pain. ondansetron 2020-0 Yes [id number] 4mg Take 1 Univers 4 mg 1-12 tablet by ity of disintegrat 00:00: mouth [place] ing tablet 00 every 12 Medic al (twelve) Branch hours as needed for Nausea and Vomiting (N/V). dicyclomine 2020-0 Yes [id number] 10mg Take 1 Univers (BENTYL) 10 1-12 capsule by it y of mg capsule 00:00: mouth 4 [place] (four) Medical times Branch daily as needed for Abdominal pain. ondansetron 2020-0 Yes [id number] 4mg Take 1 Univers 4 mg 1-12 tablet by ity of disintegrat 00:00: mouth [place] ing tablet 00 every 12 Medic al (twelve) Branch hours as needed for Nausea and Vomiting (N/V). dicyclomine 2020-0 Yes [id number] 10mg Take 1 Univers (BENTYL) 10 1-12 capsule by it y of mg capsule 00:00: mouth 4 [place] (four) Medical times Branch daily as needed for Abdominal pain. ondansetron 2020-0 Yes [id number] 4mg Take 1 Univers 4 mg 1-12 tablet by ity of disintegrat 00:00: mouth [place] ing tablet 00 every 12 Medic al (twelve) Branch hours as needed for Nausea and Vomiting (N/V). dicyclomine 2020-0 Yes [id number] 10mg Take 1 Univers (BENTYL) 10 1-12 capsule by it y of mg capsule 00:00: mouth 4 [place] (four) Medical times Branch daily as needed for Abdominal pain. ondansetron Yes [id number] 4mg Take 1 Univers 4 mg 1-12 tablet by ity of disintegrat 00:00: mouth [place] ing tablet 00 every 12 Medic al (twelve) Branch hours as needed for Nausea and Vomiting (N/V). dicyclomine Yes [id number] 10mg Take 1 Univers (BENTYL) 10 1-12 capsule by it y of mg capsule 00:00: mouth 4 [place] (four) Medical times Branch daily as needed for Abdominal pain. ondansetron Yes [id number] 4mg Take 1 Univers 4 mg 1-12 tablet by ity of disintegrat 00:00: mouth [place] ing tablet 00 every 12 Medic al (twelve) Branch hours as needed for Nausea and Vomiting (N/V). dicyclomine Yes [id number] 10mg Take 1 Univers (BENTYL) 10 1-12 capsule by it y of mg capsule 00:00: mouth 4 [place] (four) Medical times Branch daily as needed for Abdominal pain. ondansetron Yes [id number] 4mg Take 1 Univers 4 mg 1-12 tablet by ity of disintegrat 00:00: mouth [place] ing tablet 00 every 12 Medic al (twelve) Branch hours as needed for Nausea and Vomiting (N/V). dicyclomine Yes [id number] 10mg Take 1 Univers (BENTYL) 10 1-12 capsule by it y of mg capsule 00:00: [place] ([place] Medical times Branch daily as needed for Abdominal pain. ondansetron Yes [id number] 4mg Take 1 Univers 4 mg 1-12 [...] Met hodi oxide 0-[address] ([facility] 17:06: mouth Hospita 400 mg 45 daily. l (241.3 mg magnesium) tablet cholecalcif 2018-05 Yes 1000U QD Take 1,000 Methodi hira, 0-[address] vitamin D3, 17:06: mouth Hospi ta (VITAMIN 45 daily. l D3) 1,000 unit tablet magnesium 2018-05 Yes 400mg QD Take 400 Met hodi oxide 0-[address] ([facility]) 17:06: mouth Hospita 400 mg 45 daily. [...] vers ORAL 0-03 mouth. ity of 20:28: [address] 2017-05 Yes Take by Uni vers ORAL 0-03 mouth. ity of 20:28: [address] 2017-05 Yes Take by Uni vers ORAL 0-03 mouth. ity of 20:28: [address] 2017-05 Yes Take by Uni vers ORAL 0-03 mouth. ity of 20:28: [address] CALCIUM 2017-05 Yes 2500mg Take 2,500 [...] as 59 (two) Medical times Branch daily. GUAIFENESIN 2017-05 Yes Take by Uni vers ORAL 0-03 mouth. ity of 15:28: [place] 34 Medical Branch CALCIUM 2017-05 Yes 2500mg Take 2,500 Un leonarda CARBONATE 0-03 mg by ity of (TUMS ORAL) 15:25: mouth 2 [place] 59 (two) Medical [...] ity of 20 mg 00:59: daily. [address] Branch vortioxetin 0 Yes Take by Uni vers e 10 mg Tab 6-08 mouth ity of 00:59: daily. [address] Branch topiramate 0 Yes 25mg Take 25 mg U nivers (TOPAMAX) 6-08 by mouth ity of 25 mg 00:59: daily. [place] [address] Medical Branch magnesium 2017-0 Yes 400mg Take [...] 6-08 daily. ity of MISC 00:59: Indication [place] 04 s: OTC Medical Branch clonazePAM 2017-0 Yes 1mg Take 1 mg Un leonarda (KLONOPIN) 6-08 by mouth 3 ity of 1 mg tablet 00:59: (three) [place] as 04 times Medical daily. Branch acetaZOLAMI 0 Yes 300mg Take 300 U nivers DE 250 mg 6-08 mg by ity of tablet 00:59: mouth 2 [place] [address] (two) Medical times Branch daily. vilazodone 2017-0 Yes 20mg Take 20 mg U nivers (VIIBRYD) 6-08 by mouth ity of 20 mg 00:59: daily. [place] [address] Medical Branch vortioxetin 2017-0 Yes Take by Uni vers e 10 mg Tab 6-08 mouth ity of 00:59: daily. [place] [address] Medical Branch topiramate 2017-0 Yes 25mg Take 25 mg U nivers (TOPAMAX) 6-08 by mouth ity of 25 mg 00:59: daily. [place] tablet Medical Branch magnesium 2017-0 Yes 400mg Take 400 Uni vers oxide 400 6-08 mg by ity of mg tablet 00:59: mouth [place] 04 daily. Medical Branch cholecalcif Yes 1000U Take 1,000 Univers hira, 6-08 Units by ity of vitamin D3, 00:59: mouth [place] (VITAMIN 04 daily. Medical D3) 1,000 Branch unit tablet POTASSIUM Yes 75mg 75 mg Univers CHLORIDE 6-08 daily. ity of MISC 00:59: Indication [place] [address] s: OTC Medical Branch clonazePAM 0 Yes 1mg Take 1 mg Un leonarda (KLONOPIN) 6-08 by mouth 3 ity of 1 mg tablet 00:59: (three) [place] as 04 times Medical daily. Branch acetaZOLAMI 0 Yes 300mg Take 300 U nivers DE 250 mg 6-08 mg by ity of tablet 00:59: mouth 2 [place] [address] (two) Medical times Branch daily. vilazodone 2017-0 Yes 20mg Take 20 mg U nivers (VIIBRYD) 6-08 by mouth ity of 20 mg 00:59: daily. [address] Branch vortioxetin 2017-0 Yes Take by Uni vers e 10 mg Tab 6-08 mouth ity of 00:59: daily. [address] Branch topiramate 2017-0 Yes 25mg Take [...] mouth ity of 20 mg 00:59: daily. [place] [address] Medical Branch vortioxetin 2017-0 Yes Take by Uni vers e 10 mg Tab 6-08 mouth ity of 00:59: daily. [place] [address] Medical Branch topiramate 2018-0 Yes 25mg Take 25 mg U nivers (TOPAMAX) 6-08 by mouth ity of 25 mg 00:59: daily. [facility] 04 Medical Branch magnesium 2017-0 Yes 400mg Take 400 Uni vers oxide 400 6-08 mg by ity of mg tablet 00:59: mouth [place] 04 daily. Medical Branch cholecalcif 20180 Yes 1000U Take 1,000 Univers hira, 6-08 Units by ity of vitamin D3, 00:59: mouth [place] (VITAMIN 04 daily. Medical D3) 1,000 Branch unit tablet POTASSIUM 2018-0 Yes 75mg 75 mg Univers CHLORIDE 6-08 daily. ity of MISC 00:59: Indication [place] 04 s: OTC Medical Branch clonazePAM 2018-0 Yes 1mg Take 1 mg Un leonarda (KLONOPIN) 6-07 by mouth 3 ity of 1 mg tablet 19:59: (three) [place] as 04 times Medical daily. Branch acetaZOLAMI 2018-0 Yes 300mg Take 300 U nivers DE 250 mg 6-07 mg by ity of tablet 19:59: mouth 2 (two) Medical times Branch daily. vilazodone Yes 20mg Take 20 mg U nivers (VIIBRYD) 607 by mouth ity of 20 mg 19:59: daily. [place] [address] Medical Branch vortioxetin Yes Take by Uni vers e 10 mg Tab 6-07 mouth ity of 19:59: daily. [place] [address] Medical Branch topiramate Yes 25mg Take 25 mg U nivers (TOPAMAX) 607 by mouth ity of 25 mg 19:59: daily. [place] tablet Medical Branch magnesium 2018-0 Yes 400mg Take 400 Uni vers oxide 400 6-07 mg by ity of mg tablet 19:59: mouth [place] 04 daily. Medical Branch cholecalcif Yes 1000U Take 1,000 Univers hira, 6-07 Units by ity of vitamin D3, 19:59: mouth [place] (VITAMIN 04 daily. Medical D3) 1,000 Branch unit tablet POTASSIUM Yes 75mg 75 mg Univers CHLORIDE 607 daily. ity of MISC 19:59: Indication s: OTC [facility] Branch albuterol albuterol No 3mL TID albuterol [place] sulfate 2.5 sulfate 2.5 sulfate Communi mg/3 [...] for 30 days. albuterol albuterol No albuterol [place] sulfate HFA sulfate HFA sulfate Communi 90 90 HFA 90 ty mcg/actuati mcg/actuati mcg/actuat Hospita on aerosol on aerosol ion l inhaler inhaler aerosol Clinic s INHALE 2 INHALE 2 inhaler PUFFS BY PUFFS BY INHALE 2 MOUTH EVERY MOUTH EVERY PUFFS BY 4 TO 6 4 TO 6 MOUTH HOURS HOURS EVERY 4 TO 6 HOURS azithromyci azithromyci No azithromyc [place] n 250 mg n 250 mg in [...] THROUGH DAY 5 calcitriol calcitriol No calcitriol [place] 0.5 mcg 0.5 mcg 0.5 mcg Commun i capsule capsule capsule ty TAKE 1 TAKE 1 TAKE 1 Hospita CAPSULE BY CAPSULE BY CAPSULE BY l MOUTH 4 MOUTH 4 MOUTH 4 Clinic s TIMES DAILY TIMES DAILY TIMES FOR 90 DAYS FOR 90 DAYS DAILY FOR 90 DAYS fluocinonid fluocinonid No fluocinoni [place] e 0.05 % e 0.05 % de [...] FOR 30 DAYS methocarbam methocarbam No methocarba [place] ol 750 mg ol 750 mg mol 750 mg Communi tablet TAKE tablet TAKE tablet ty 1 TABLET BY 1 TABLET BY TAKE 1 Hospita MOUTH EVERY MOUTH EVERY TABLET BY l 8 HOURS 8 HOURS MOUTH Clinics EVERY 8 HOURS prednisone prednisone No 1dose prednisone [place] 10 mg 10 mg pk(s) 10 mg [...] for 6 days. calcitriol calcitriol No calcitriol [place] 0.5 mcg 0.5 mcg 0.5 mcg Commun i capsule capsule capsule ty TAKE 1 TAKE 1 TAKE 1 Hospita CAPSULE BY CAPSULE BY CAPSULE BY l MOUTH 4 MOUTH 4 MOUTH 4 Clinic s TIMES DAILY TIMES DAILY TIMES FOR 90 DAYS FOR 90 DAYS DAILY FOR 90 DAYS Valium 5 mg Valium 5 mg No Valium 5 [place] tablet Take tablet Take mg tablet Communi [...] Time Observation Value Comments Source Systolic blood 2022-07-27 00:57:35 131 mm[Hg] Univer [facility]ity of [facility] Diastolic blood 2022-07-27 00:57:35 83 mm[Hg] [facility] 2022-07-27 00:57:35 105 /min Universi ty [facility] Body temperature 2022-07-27 00:57:35 36.94 Loli [facility] Respiratory rate 2022-07-27 00:57:35 20 /min Univ [facility] Oxygen saturation in 2022-07-27 00:57:35 96 /min [facility] Arterial blood by [facility] Pulse oximetry Branch Body height 2022-07-26 22:52:00 165.1 cm Universi ty [facility] Body weight 2022-07-26 22:52:00 122.471 kg Universi ty [facility] BMI 2022-07-26 22:52:00 44.93 kg/m2 Universi ty [facility] Systolic blood 2022-05-27 19:12:00 116 mm[Hg] Univer sity of [facility] Diastolic blood 2022-05-27 19:12:00 80 mm[Hg] Unive rsity [facility] Heart rate 2022-05-27 19:12:00 90 /min Universi ty of [facility] Body height 2022-05-27 19:12:00 165.1 cm Universi ty [facility] Body weight 2022-05-27 19:12:00 127.007 kg Universi ty [facility] BMI 2022-05-27 19:12:00 46.59 kg/m2 Universi ty [facility] Systolic blood 2022-05-19 14:23:00 124 mm[Hg] Univer sity [facility] Diastolic blood 2022-05-19 14:23:00 87 mm[Hg] Unive rsity of [facility] Heart rate 2022-05-19 14:23:00 85 /min [facility] Body temperature 2022-05-19 14:23:00 36.61 Loli [facility] Respiratory rate 2022-05-19 14:23:00 18 /min [facility] Body height 2022-05-19 14:23:00 165.1 cm [facility] Body weight 2022-05-19 14:23:00 127.461 kg [facility] BMI 2022-05-19 14:23:00 46.76 kg/m2 [facility] BP Diastolic 2021-02-28 00:00:00 82 mm[Hg] [facility] s Height 2021-02-28 00:00:00 65 [in_i] [facility] [place] s BMI (Body Mass 2021-02-28 00:00:00 44.6 kg/m2 [facility]) [facility] s BP Systolic 2021-02-28 00:00:00 126 mm[Hg] [facility] [place] s Body Weight 2021-02-28 00:00:00 4291.2 [oz_av] [facility] s BP Diastolic 2020-11-20 00:00:00 83 mm[Hg] [facility] s Height 2020-11-20 00:00:00 65 [in_i] [facility] [place] s BMI (Body Mass 2020-11-20 00:00:00 46 kg/m2 [facility]) [facility] s BP Systolic 2020-11-20 00:00:00 137 mm[Hg] [facility] s Body Weight 2020-11-20 00:00:00 4425.6 [oz_av] [facility] s Systolic blood 2020-05-23 01:36:00 143 mm[Hg] Univer sity of [facility] Diastolic blood 2020-05-23 01:36:00 99 mm[Hg] Unive rsity of pressure [place] [facility] Heart rate 2020-05-23 01:36:00 94 /min Universi ty of [place] [facility] Respiratory rate 2020-05-23 01:36:00 18 /min Univ ersity of [facility] Oxygen saturation in 2020-05-23 01:36:00 100 /min University of Arterial blood by [facility] Pulse oximetry Branch Body temperature 2020-05-23 01:15:52 37 Loli Univ ersity of [place] [facility] Body height 2020-05-22 22:41:00 165.1 cm Universi ty of [place] [facility] Body weight 2020-05-22 22:41:00 127.007 kg Universi ty [facility] [place] [facility] BMI 2020-05-22 22:41:00 46.59 kg/m2 Universi ty of [facility] Branch Systolic blood 2020-05-23 01:36:00 143 mm[Hg] Univer sity of pressure [facility] Diastolic blood 2020-05-23 01:36:00 99 mm[Hg] Unive rsity of pressure [facility] Heart rate 2020-05-23 01:36:00 94 /min Universi ty of [place] [facility] Respiratory rate 2020-05-23 01:36:00 18 /min Univ ersity of [facility] Oxygen saturation in 2020-05-23 01:36:00 100 /min University of Arterial blood by [facility] Pulse oximetry Branch Body temperature 2020-05-23 01:15:52 37 Loli Univ ersity of [facility] Body height 2020-05-22 22:41:00 165.1 cm Universi ty [facility] [place] [facility] Body weight 2020-05-22 22:41:00 127.007 kg Universi ty [facility] [place] [facility] BMI 2020-05-22 22:41:00 46.59 kg/m2 Universi ty of [facility] Branch Procedures Procedure Date / Time Performing Source Performed Clinician POCT TEST 2022-07-26 Aye Newsome [facility] 23:24:00 [facility] URINALYSIS 2022-07-26 Aye Newsome [facility] ex 23:22:00 [facility] RAPID INFLUENZA A/B 2022-07-26 Aye Newsome [facility] 23:22:00 [facility] COVID-19 (ID NOW RAPID 2022-07-26 Aye Neswome [facility] TESTING) 23:22:00 Medical Branch ASSIGNMENT OF BENEFITS 2022-07-26 Doctor Kaykaysssenia, [facility] 23:11:38 [place] [facility] CONSENT/REFUSAL FOR DIAGNOSIS 2022-07-26 Doctor Wilber, [facility] AND TREATMENT 22:44:29 [place] [facility] [place] HYSTEROSALPINGOGRAM 2022-05-27 [facility] 20:15:00 [facility] POCT TEST 2022-05-27 [facility] 00:00:00 [facility] OB TRANSVAGINAL 2022-05-19 [facility] 15:11:19 [facility] ULTRASOUND 2022-05-19 Doctor Wilber, [facility] 06:01:00 [place] [facility] POCT TEST 2022-05-19 [facility] 00:00:00 [facility] XR, chest, 2 view 2020-11-20 [facility] 00:00:[address] ABDOMEN PELVIS W CONTRAST 2020-05-23 Dao Nicolas [facility] 00:46:11 [facility] POCT TEST 2020-05-23 Dao Nicolas [facility] 00:09:00 Medical Branch LIPASE 2020-05-22 Dao Nicolas [facility] exas 23:59:00 Medical Branch COMP. METABOLIC PANEL ([id number]) 2020-05-22 Dao Nicolas [facility] 23:59:00 Medical Branch CBC WITH DIFF 2020-05-22 Dao Nicolas [facility] 23:59:00 Medical Branch URINALYSIS 2020-05-22 Dao Nicolas [facility] ex 23:59:00 Medical Branch CONSENT/REFUSAL FOR DIAGNOSIS 2020-05-22 Doctor Wilber, [facility] AND TREATMENT 22:30:18 [place] [facility] AUTHORIZATION FOR RELEASE OF 2019-07-28 Doctor Merino, [facility] PHI 05:01:00 [place] [facility] Endoscopy 2015-05-11 [facility] 00:00:00 Hospital Clinics Breast Biopsy 2015-05-11 [facility] 00:00:00 Hospital Clinics Cholecystectomy 2012-05-11 [facility] 00:00:00 Hospital Clinics Ear Tube [facility] Clinics Plan of Care Planned Activity Planned Date Details Comments Source Future Scheduled Test 2022-08-09 COVID-19 VACCINE (#1) [facility] 14:29:56 [code = COVID-19 VACCINE (#1)] Future Scheduled Test 2022-08-09 [facility] 14:29:56 malignant neoplasm of cervix (procedure) [code = 522277268] Future Scheduled Test 2022-08-09 INFLUENZA VACCINE [facility] 14:29:56 [code = INFLUENZA VACCINE] Future Scheduled Test 2022-08-09 COVID-19 VACCINE (#1) [facility] 14:29:56 [code = COVID-19 VACCINE (#1)] Future Scheduled Test 2022-08-09 [facility] 14:29:56 malignant neoplasm of cervix (procedure) [code = 038447153] Future Scheduled Test 2022-08-09 INFLUENZA VACCINE [facility] 14:29:56 [code = INFLUENZA VACCINE] Future Scheduled Test 2022-08-09 COVID-19 VACCINE (#1) [facility] 14:29:56 [code = COVID-19 VACCINE (#1)] Future Scheduled Test 2022-08-09 [facility]ening for [facility] 14:29:56 malignant neoplasm of cervix (procedure) [code = 040318173] Future Scheduled Test 2022-08-09 INFLUENZA VACCINE [facility] 14:29:56 [code = INFLUENZA VACCINE] Future Scheduled Test 2022-03-22 HEPATITIS B VACCINES [facility] 23:49:50 (1 of 3 - 3-dose series) [code = HEPATITIS B VACCINES (1 of 3 - 3-dose series)] Future Scheduled Test 2022-03-22 COVID-19 VACCINE (#1) [facility] 23:49:50 [code = COVID-19 VACCINE (#1)] Future Scheduled Test 2022-03-22 Screening for [facility] 23:49:50 malignant neoplasm of cervix (procedure) [code = 228232470] Future Scheduled Test 2022-03-22 INFLUENZA VACCINE [facility] 23:49:50 [code = INFLUENZA VACCINE] Future Scheduled Test 2022-03-22 HEPATITIS B VACCINES [facility] 23:49:50 (1 of 3 - 3-dose series) [code = HEPATITIS B VACCINES (1 of 3 - 3-dose series)] Future Scheduled Test 2022-03-22 COVID-19 VACCINE (#1) [facility] 23:49:50 [code = COVID-19 VACCINE (#1)] Future Scheduled Test 2022-03-22 [facility] 23:49:50 malignant neoplasm of cervix (procedure) [code = 542352845] Future Scheduled Test 2022-03-22 INFLUENZA VACCINE [facility] 23:49:50 [code = INFLUENZA VACCINE] Future Scheduled Test 2022-03-22 HEPATITIS B VACCINES [facility] 23:49:50 (1 of 3 - 3-dose series) [code = HEPATITIS B VACCINES (1 of 3 - 3-dose series)] Future Scheduled Test 2022-03-22 COVID-19 VACCINE (#1) [facility] 23:49:50 [code = COVID-19 VACCINE (#1)] Future Scheduled Test 2022-03-22 Screening for [facility] 23:49:50 malignant neoplasm of cervix (procedure) [code = 478009562] Future Scheduled Test 2022-03-22 INFLUENZA VACCINE [facility] 23:49:50 [code = INFLUENZA VACCINE] Future Scheduled [facility] 20:07:35 (procedure) [code = 654639477] Future Scheduled Test 2022-03-15 Screening for [facility] 20:07:35 malignant neoplasm of cervix (procedure) [code = 959242849] Future Scheduled Test 2022-03-15 INFLUENZA VACCINE [facility] 20:07:35 [code = INFLUENZA VACCINE] Future Scheduled [...] [facility] 20:17:48 (procedure) [code = 485692605] Future Scheduled Test 2022-01-09 Screening for [facility] 20:17:48 malignant neoplasm of cervix (procedure) [code = 765609311] Future Scheduled Test 2022-01-09 INFLUENZA VACCINE [facility] 20:17:48 [code = INFLUENZA VACCINE] Diagnostic Test 2020-11-20 rapid SARS CoV 2 Ag, [facility] Pending 00:00:00 QL IA, respiratory Hospital Clinics specimen [code = rapid SARS CoV 2 Ag, QL [place], respiratory specimen] Diagnostic Test 2020-11-20 rapid strep group A, [facility] Pending 00:00:00 throat [code = rapid Hospita Clinics strep group A, throat] Diagnostic Test 2020-11-20 rapid flu (A+B) [code [facility] Pending 00:00:00 = rapid flu (A+B)] Hospital Clinics Instructions [facility] Clinic s Encounters Start End Encounter Admission Attending Care Care Encounter Source Date/Time Date/Time Type Type Clinicians Facility Department ID 2021-03-09 Emergency [facility] [id number] Univers 16:53:19 [facility] 2020-08-29 Inpatient Rosalva Norris [facility] [id number] [facility] 12:58:27 50 [facility] 2022-09-10 2022-09-11 Inpatient CARMELLA Barnhart [facility]. [id number] [facility] 12:19:00 15:57:00 Nayan 97 [facility] 2022-08-20 2022-08-20 Outpatient R BUD, [facility] [id number] Univers 10:30:00 10:30:00 ISAIAH ity [facility] 2022-07-26 2022-07-26 Emergency X [facility] ERT [id number] Univers 17:56:00 20:11:00 AYE ity [facility] 2022-07-26 2022-07-26 Emergency [facility] [id number] Univers 17:56:00 20:11:00 [facility] 350.1.13.10 ity [place] [id number] [facility] 084 Branch 2022-05-27 2022-05-27 Outpatient R XAVIER HORNSOL [facility] U [facility] [id number] Univers 13:02:25 23:59:00 NAAND-HORTON, MARISSA [facility] 2022-05-27 2022-05-27 [facility] UNIVERSIT [id number] Univers 13:02:25 23:59:00 Encounter s, Marissa Y HEALTH 350.1.13.10 ity of CL[place] [id number] [facility] 807 Branch 2022-05-27 2022-05-27 Nurse Nurse, [facility] UNIVERSIT [id number] Univers 14:30:00 15:00:00 Visit Anand-Horton, Marissa Y HEALTH 350.1.1 3.10 ity of CL[place]ICS [place] [id number] [facility] 095 Branch 2022-05-20 2022-05-20 Outpatient R [facility] [id number] Univers 12:00:00 12:00:00 ity of [facility] 2022-05-19 2022-05-19 Outpatient R MARISSA HORN [facility] U [facility] [id number] Univers 08:00:00 09:12:28 MARISSA HORN itveronica [facility] 2022-05-19 2022-05-19 Office [facility] [id number] Univers 08:00:00 09:12:28 Visit Marissa [place] 350.1.13.10 ity of [place] [id number] [address] 2022-05-19 2022-05-19 Orders Doctor ALFRED [id number] Univers 00:00:00 00:00:00 Only Unassigned, MIKHAIL 350.1.13.10 ity of [place] [facility] 4.2.7.2.686 [place] as [id number] [place] [address] Branch 2022-05-14 2022-05-14 Telephone [facility] 1.2.840.11 [id number] Univers 00:00:00 00:00:00 Marissa [place] 350.1.13.10 ity of [place] [id number] [address] 2022-04-11 2022-04-11 Outpatient R ARJUN [facility] [id number] Univers 10:00:00 10:00:00 BETH itveronica [facility] 2021-02-28 2021-02-28 Outpatient [facility] 107 [place] 10:39:00 10:39:00 _L 1021 Commun i ty Hospita l Clinics 2021-02-28 2021-02-28 Outpatient [facility] d5a [id number] 00:00:00 00:00:00 , Nisa [id number] Hyacinth [id number] 2021-02-28 2021-02-28 Nisa Claros [facility] [place] - [place] 202 [id number] [place] 00:00:00 00:00:00 [facility] ALTAG[facility]ACIA Grant-Anastasia: Hospital - ty [address], [place] [address] , Ph. 2020-11-21 2020-11-21 Outpatient [facility] 107 [place] 01:00:00 01:00:00 _L 0714 Commun i ty [facility] 2020-11-20 2020-11-20 Outpatient [facility] 107 [place] 06:10:00 06:10:00 _L 0713 Commun i ty [facility]osp[facility] 2020-11-20 2020-11-20 Nisa Claros [facility] [place] - [place] 202 [id number] [place] 00:00:00 00:00:00 [facility] ALTAG[facility]ACIA Grant-Anastasia: Hospital - ty [address], [place] [address] , Ph. 2020-11-20 2020-11-20 Outpatient [facility] 58a [id number] 00:00:00 00:00:00 , Nisa [id number] Hyacinth [id number] 2020-05-22 2020-05-22 Emergency [facility] 1.2.840.114 [id number] 16:43:00 20:04:00 Dao B [place] 350.1.13.10 [place] 4.2.7.2.686 [place] [id number] [facility] 2020-05-22 2020-05-22 Emergency [facility] 1.2.840.114 [id number] [facility] 16:43:00 20:04:00 Dao B [place] 350.1.13.10 i ty of [place] 4.2.7.2.686 [facility] [id number] [place] [address] [place] 2020-05-22 2020-05-22 Orders Doctor ALFRED 1.2.840.114 [id number] 00:00:00 00:00:00 Only Unassigned, MIKHAIL 350.1.13.10 [place] [facility] 4.2.7.2.686 [id number] 2020-05-22 2020-05-22 Orders Doctor ALFRED 1.2.840.114 [id number] Univers 00:00:00 00:00:00 Only Unassigned, MIKHAIL 350.1.13.10 ity of [place] [facility] 4.2.7.2.686 [place] as [id number] [address] 2020-02-15 2020-02-15 Outpatient G[facility]Pappas [facility] [id number] [place] 12:05:00 12:05:[address] [place] [address] Medical Group 2019-08-02 2019-08-02 Outpatient R [facility] [id number] Univers 18:40:00 18:40:00 ity of [facility] 2019-08-02 2019-08-02 Telephone [facility] [id number] 00:00:00 00:00:00 [facility] 350.1.13.10 [place] 4.2.7.2.686 Professio [id number] [place] [address] [address] 2019-08-02 2019-08-02 Telephone [facility] [id number] Univers 00:00:00 00:00:00 [facility] 350.1.13.10 it y of [place] 4.2.7.2.686 [place] Professio [id number] [address] Office [address] 2019-07-28 2019-07-28 Orders Doctor ALFRED 1.2.840.114 [id number] 00:00:00 00:00:00 Only Unassigned, MIKHAIL 350.1.13.10 [place] [facility] 4.2.7.2.686 [id number] 2019-07-28 2019-07-28 Orders Doctor ALFRED 1.2.840.114 [id number] Univers 00:00:00 00:00:00 Only Unassigned, MIKHAIL [id number] ity of [place] [facility] [id number] Ramiro as [phone] [place] [address] [place] 2019-02-18 2019-02-21 Inpatient SANDEEP HOSKINS [facility] 2100 [id number] [place] 00:00:00 00:00:[address] Results Test Description Test Time Test Comments Results Result Comments Source CALCIUM IONIZED 2022-09-17 02:07:00 Test Item Value Reference Range Interpretation Comme nts CALCIUM IONIZED (test code = VICKY) 0.86 MMOL/L 1.09-1.30 L PTH RELATED [id number] 02:07:00 Test Item Value Reference Range Interpretation Comments PTH RELATED <2.0 pmol/L See_Comment This test was d eveloped and its PEPTIDE (test performance code = characteristics determined by PTHPEP) [facility]. It has not been cleared or appr ovedby the Food and Drug Administration. Reference Range:All Ages: <2.0The PTHrP assay should no t be used to exclude cancer orscreen tumor patients for hu moral hypercalcemia o fmalignancy (HHM). The resu lts should always be asses sed inconjunction w ith the patient's medic al history, clinicalexamina tion, and other findings. If te st results areclinically d iscordant, please contact the laboratory.Perf ormed At: [facility] [address] [place] [address] [id number] Oswald MD Ph:[phone] [ Automated message] The sy stem which generated this result transmitted ref erence range: (). The referen ce range was not used to interpr et this result as normal/abnor mal. UR CALCIUM [id number] 17:08:00 Test Item Value Reference Range Interpretation Comments UR CALCIUM RANDOM 14.1 mg/dL Not Estab. (test code = CAU) UR CALCIUM 24HR 212 mg/24 hr 0-320 Performed At : HD (test code = CA24T) [facility] [address] [place], [place] [id number] Tal Hargrove MD Ph:[phone] UR CREATININE [id number] 17:08:00 Test Item Value Reference Range Interpretation Comments UR CREATININE 120.9 mg/dL The Reference Range and RANDOM (test code Method Per formance = CREATU) specificationsh ave not been establishe d for this fluid. The test resultshould be correlated into the clinical contex t forinterpretati on. UR CREATININE 1.8 GM/24HR 1.0-1.6 H 24HR (test code = JIWY23K) UR VOLUME (test 1500 mL code = VOL) BASIC METABOLIC [id number] 08:10:00 Test Item Value Reference Range Interpretation Comments SODIUM (test code = 137 mEq/L 134-147 N NA) POTASSIUM (test code 4.2 mEq/L 3.4-5.0 N = K) CHLORIDE (test code 104 mEq/L 100-108 N = CL) CARBON DIOXIDE (test 23 mEq/l 21-33 N code = CO2) ANION GAP (test code 14 0-20 N = GAP) GLUCOSE (test code = 86 mg/dL 70-110 N GLU) BLOOD UREA NITROGEN 10 mg/dL 7-18 N (test code = BUN) GLOMERULAR 126.1 110-120 H The Glomerular FILTRATION RATE Filtration R ate is a (test code = GFR) calculated parameterbased on serum Creatinine, pat ient age and sex. GFR va luesless than 60 mL/min/ 1.73 square meters a re indicative ofCh ronic Kidney Disease. Values less than 15 mL/min/1.73squa re meters indicate Kidney failure. The calculation forGFR is based on the CKD-EPI (2020) calculat ion. This formulais race indifferent and is the recommended for prateek for GFRby the [facility] on for Adults.The GFR will not calculate if th e sex is unknown or if thepatient's ag e is <18 years. CREATININE (test 0.6 mg/dL 0.6-1.3 N code = CREAT) CALCIUM (test code = 7.5 mg/dL 8.0-10.5 L CA) [id number] 08:10:00 Test Item Value Reference Range Interpretation Comments PHOSPHOROUS (test code = PHOS) 4.8 MG/DL 2.5-4.9 N [id number] 08:10:00 Test Item Value Reference Range Interpretation Comments MAGNESIUM (test code = MAG) 1.76 mg/dL 1.80-2.40 L CALCIUM [id number] 08:10:00 Test Item Value Reference Range Interpretation Comments CALCIUM IONIZED (test code = VICKY) 0.94 MMOL/L 1.09-1.30 L CBC W/AUTO [id number] 06:49:00 Test Item Value Reference Range Interpretation Comments WHITE BLOOD CELL (test code = 7.0 x10 3/uL 4.5-11.0 N WBC) RED BLOOD CELL (test code = 4.75 x10 6/uL 3.54-5.02 N RBC) HEMOGLOBIN (test code = HGB) 13.6 g/dL 11.0-15.0 N HEMATOCRIT (test code = HCT) 40.7 % 33.0-45.0 N MEAN CELL VOLUME (test code = 85.7 fL 81.0-99.0 N MCV) MEAN CELL HGB (test code = MCH) 28.6 pg 27.0-33.0 N MEAN CELL HGB CONCETRATION 33.4 g/dL 33.0-37.0 N (test code = MCHC) RED CELL DISTRIBUTION WIDTH CV 13.0 % 11.5-14.5 N (test code = RDW) RED CELL DISTRIBUTION WIDTH SD 40.3 fL 37.0-54.0 N (test code = RDW-SD) PLATELET COUNT (test code = 246 x10 3/uL 150-400 N PLT) MEAN PLATELET VOLUME (test code 10.7 fL 7.0-9.0 H = MPV) NEUTROPHIL % (test code = NT%) 58.1 % 56.0-77.0 N IMMATURE GRANULOCYTE % (test 0.4 % 0.0-2.0 N code = IG%) LYMPHOCYTE % (test code = LY%) 31.3 % 14.0-32.0 N MONOCYTE % (test code = MO%) 7.0 % 4.8-9.0 N EOSINOPHIL % (test code = EO%) 2.8 % 0.3-3.7 N BASOPHIL % (test code = BA%) 0.4 % 0.0-2.0 N NUCLEATED RBC % (test code = 0.0 % 0-0 N NRBC%) NEUTROPHIL # (test code = NT#) 4.07 x10 3/uL 2.0-7.6 N IMMATURE GRANULOCYTE # (test 0.03 x10 3/uL 0.00-0.03 N code = IG#) LYMPHOCYTE # (test code = LY#) 2.20 x10 3/uL 1.0-3.8 N MONOCYTE # (test code = MO#) 0.49 x10 3/uL 0.1-0.8 N EOSINOPHIL # (test code = EO#) 0.20 x10 3/uL 0.0-0.2 N BASOPHIL # (test code = BA#) 0.03 x10 3/uL 0.0-0.2 N NUCLEATED RBC # (test code = 0.00 x10 3/uL 0.0-0.1 N NRBC#) MANUAL DIFF REQUIRED (test code NO = MDIFF) CBC W/AUTO [id number] 07:49:00 Test Item Value Reference Range Interpretation Comments WHITE BLOOD CELL (test code = 6.1 x10 3/uL 4.5-11.0 N WBC) RED BLOOD CELL (test code = 4.69 x10 6/uL 3.54-5.02 N RBC) HEMOGLOBIN (test code = HGB) 13.4 g/dL 11.0-15.0 N HEMATOCRIT (test code = HCT) 40.7 % 33.0-45.0 N MEAN CELL VOLUME (test code = 86.8 fL 81.0-99.0 N MCV) MEAN CELL HGB (test code = MCH) 28.6 pg 27.0-33.0 N MEAN CELL HGB CONCETRATION 32.9 g/dL 33.0-37.0 L (test code = MCHC) RED CELL DISTRIBUTION WIDTH CV 13.3 % 11.5-14.5 N (test code = RDW) RED CELL DISTRIBUTION WIDTH SD 42.1 fL 37.0-54.0 N (test code = RDW-SD) PLATELET COUNT (test code = 260 x10 3/uL 150-400 N PLT) MEAN PLATELET VOLUME (test code 10.7 fL 7.0-9.0 H = MPV) NEUTROPHIL % (test code = NT%) 55.9 % 56.0-77.0 L IMMATURE GRANULOCYTE % (test 0.3 % 0.0-2.0 N code = IG%) LYMPHOCYTE % (test code = LY%) 31.9 % 14.0-32.0 N MONOCYTE % (test code = MO%) 8.2 % 4.8-9.0 N EOSINOPHIL % (test code = EO%) 3.4 % 0.3-3.7 N BASOPHIL % (test code = BA%) 0.3 % 0.0-2.0 N NUCLEATED RBC % (test code = 0.0 % 0-0 N NRBC%) NEUTROPHIL # (test code = NT#) 3.40 x10 3/uL 2.0-7.6 N IMMATURE GRANULOCYTE # (test 0.02 x10 3/uL 0.00-0.03 N code = IG#) LYMPHOCYTE # (test code = LY#) 1.94 x10 3/uL 1.0-3.8 N MONOCYTE # (test code = MO#) 0.50 x10 3/uL 0.1-0.8 N EOSINOPHIL # (test code = EO#) 0.21 x10 3/uL 0.0-0.2 H BASOPHIL # (test code = BA#) 0.02 x10 3/uL 0.0-0.2 N NUCLEATED RBC # (test code = 0.00 x10 3/uL 0.0-0.1 N NRBC#) MANUAL DIFF REQUIRED (test code NO = MDIFF) COMPREHENSIVE METABOLIC [id number] 07:33:00 Test Item Value Reference Range Interpretation Comments SODIUM (test code = 137 mEq/L 134-147 N NA) POTASSIUM (test code 4.0 mEq/L 3.4-5.0 N = K) CHLORIDE (test code 105 mEq/L 100-108 N = CL) CARBON DIOXIDE (test 27 mEq/l 21-33 N code = CO2) ANION GAP (test code 9 0-20 N = GAP) GLUCOSE (test code = 97 mg/dL 70-110 N GLU) BLOOD UREA NITROGEN 11 mg/dL 7-18 N (test code = BUN) GLOMERULAR 126.1 110-120 H The Glomerular FILTRATION RATE Filtration R ate is a (test code = GFR) calculated parameterbased on serum Creatinine, pat ient age and sex. GFR va luesless than 60 mL/min/ 1.73 square meters a re indicative ofCh ronic Kidney Disease. Values less than 15 mL/min/1.73squa re meters indicate Kidney failure. The calculation for GFR is based on the CK D-EPI (2020) calculat ion. This formulais race indifferent and is the recommended for prateek for GFRby the [facility] for Adults.The GFR will not calculate if th e sex is unknown or if thepatient's ag e is <18 years. CREATININE (test 0.6 mg/dL 0.6-1.3 N code = CREAT) TOTAL PROTEIN (test 7.8 g/dL 6.4-8.2 N code = PROT) ALBUMIN (test code = 3.40 g/dL 3.4-5.0 N ALB) CALCIUM (test code = 6.6 mg/dL 8.0-10.5 L CA) BILIRUBIN TOTAL 0.50 mg/dL 0.0-1.0 (test code = BILT) SGOT/AST (test code 17 IUnit/L 15-37 N = AST) SGPT/ALT (test code 17 IUnit/L 30-65 L = ALT) ALKALINE PHOSPHATASE 65 IUnit/L 20-125 N TOTAL (test code = ALKP) [id number] 07:33:00 Test Item Value Reference Range Interpretation Comments PHOSPHOROUS (test code = PHOS) 6.1 MG/DL 2.5-4.9 H [id number] 07:33:00 Test Item Value Reference Range Interpretation Comments MAGNESIUM (test code = MAG) 1.72 mg/dL 1.80-2.40 L - US HEAD AND [id number] 00:00:00 [facility] 1995 Sex: F Name:LACI HALL [facility] [place] : 1995 Age/S: 27 / F [address] [place] [address] Unit #: [id number] Loc: [place] [address] Phys: Yadiel,Kelton CLOUD Acct: [id number] Dis Date: Status: ADM IN PHONE #: [phone] Exam Date: 09/10/2022 1458 FAX #: [phone] Reason: hypoparathyroidism EXAMS:CPT CODE: [id number] US HEAD AND NECK 68627 PROCEDURE INFORMATION: Exam: US Soft Tissue Head and Neck, Thyroid Exam date and time: 09/10/2022 2:31 PM Age: 27 years old Clinical indication: Condition or disease; Other: Hypoparathyroidism TECHNIQUE: Imaging protocol: Real-time ultrasound scan of the neck with image documentation. Exam focused on the thyroid. COMPARISON: No relevant prior studies available. FINDINGS: Right thyroid lobe: 5.1 x 1.5 x 1.7 cm. Hypoechoic nodule measuring 9 x 7 x 9 mm with calcific rim is noted arising from the inferior pole. Left thyroid lobe: 4.3 x 1.6 x 1.7 cm. No nodules.Isthmus: 3 mm. No nodules. Lymph nodes: No enlarged lymph nodes. Soft tissues: Unremarkable Other findings: Mildly heterogeneous thyroid parenchymal echotexture without hyperemia. IMPRESSION: 1. Mild enlargement of the right thyroid lobe. 2. TI-RADS TR 4 nodule is noted arising from the inferior pole of the right thyroid lobe measuring 9 x 7 x 9 mm. By TI-RADS criteria, this nodule is below the size t hreshold for follow-up or FNA biopsy. 3. Nonspecific mildly heterogeneous thyroid parenchymal echotexture without hyperemia. at 1628 Reported and signed by: Satya Patel M.D. CC: Kelton Cotto; Yaya Chisholm MD Tech nologist: Peggy Killian Trnscb Date/Time: 09/10/2022 (1627) GinettePJ5 Orig Print D/T: S: 09/10/2022 (1627) Probe: PAGE 1 Signed ReportVITAMIN D 25-HYDROXY 2022-09-09 21:25:00 Test Item Value Reference Range Interpretation Comments VITAMIN D 25-HYDROXY (test code = 35.7 ng/mL 30-100 N VITD25) Indication for Test: PTH DisorderPTH INTACT [id number] 21:24:00 Test Item Value Reference Range Interpretation Comments PARATHYROID HORMONE INTACT (test 7.8 pg/mL 14.0-72.0 L code = PARAI) UR HCG [id number] 16:33:00 Test Item Value Reference Range Interpretation Comments UR HCG QUAL (test code = HCGQLU) NEGATIVE NEGATIVE COMPREHENSIVE METABOLIC [id number] 15:50:00 Test Item Value Reference Range Interpretation Comments SODIUM (test code = 139 mEq/L 134-147 N NA) POTASSIUM (test code 3.7 mEq/L 3.4-5.0 N = K) CHLORIDE (test code 103 mEq/L 100-108 N = CL) CARBON DIOXIDE (test 28 mEq/l 21-33 N code = CO2) ANION GAP (test code 12 0-20 N = GAP) GLUCOSE (test code = 90 mg/dL 70-110 N GLU) BLOOD UREA NITROGEN 11 mg/dL 7-18 N (test code = BUN) GLOMERULAR 121.5 110-120 H The Glomerular FILTRATION RATE Filtration R ate is a (test code = GFR) calculated parameterbased on serum Creatinine, pat ient age and sex. GFR va luesless than 60 mL/min/ 1.73 square meters a re indicative ofCh ronic Kidney Disease. Values less than 15 mL/min/1.73squa re meters indicate Kidney failure. The calculation for GFR is based on the CK D-EPI (2020) calculat ion. This formulais race indifferent and is the recommended for parteek for GFRby the [facility] for Adults.The GFR will not calculate if th e sex is unknown or if thepatient's ag e is <18 years. CREATININE (test 0.7 mg/dL 0.6-1.3 N code = CREAT) TOTAL PROTEIN (test 8.2 g/dL 6.4-8.2 N code = PROT) ALBUMIN (test code = 3.60 g/dL 3.4-5.0 N ALB) CALCIUM (test code = 6.7 mg/dL 8.0-10.5 L CA) BILIRUBIN TOTAL 0.30 mg/dL 0.0-1.0 N (test code = BILT) SGOT/AST (test code 18 IUnit/L 15-37 N = AST) SGPT/ALT (test code 20 IUnit/L 30-65 L = ALT) ALKALINE PHOSPHATASE 73 IUnit/L 20-125 N TOTAL (test code = ALKP) [id number] 15:50:00 Test Item Value Reference Range Interpretation Comments PHOSPHOROUS (test code = PHOS) 4.8 MG/DL 2.5-4.9 N BILIRUBIN [id number] 15:50:00 Test Item Value Reference Range Interpretation Comments BILIRUBIN DIRECT (test code = 0.10 MG/DL 0.0-0.30 N BILD) [id number] 15:50:00 Test Item Value Reference Range Interpretation Comments MAGNESIUM (test code = MAG) 1.62 mg/dL 1.80-2.40 L TSH REFLEX TO [id number] 15:50:00 Test Item Value Reference Range Interpretation Comments TSH REFLEX TO FT4 (test code = 2.15 IU/mL 0.42-5.47 N TSHREFLEX) TROP-I HIGH [id number] 15:50:00 Test Item Value Reference Range Interpretation Comments TROP-I HIGH < 3 ng/L 0-34 N CAUTION: Units of the SENSITIVITY (test current te st methodology code = TROPIHS) (ng/L) diffe rfrom the prior test meth odology (ng/mL) by a fa ctor of 1000. 99t h Percentile Uppe r Reference Limit (URL): Fe males: 34 ng/LMales: 54 n g/L In order to distin [facility] acute elevations of h igh sensitivitytrop onin from other clinical conditions, the FourthUnive rsal Definition of M yocardial Infarction stressesclinica l assessment and the demonstration o f a rise and/orfall in s erial troponin result s above the URL. These resu lts were obtained using Siemens [employer]ellica IM TnI Hreagent. Results from di fferent methodologies s hould not becompared to o ne another as quantitative results and URLs mayvar y by method. B-TYPE NATRIURETIC [id number] 15:46:00 Test Item Value Reference Range Interpretation Comments B-TYPE NATRIURETIC PEPTIDE (test 3.0 PG/ML 0-100 N code = BNP) C REACTIVE [id number] 15:37:00 Test Item Value Reference Range Interpretation Comments C REACTIVE PROTEIN (test code = 12.0 mg/L <10.0 H CRP) CBC W/AUTO [id number] 15:24:00 Test Item Value Reference Range Interpretation Comments WHITE BLOOD CELL (test code = 7.8 x10 3/uL 4.5-11.0 N WBC) RED BLOOD CELL (test code = 4.86 x10 6/uL 3.54-5.02 N RBC) HEMOGLOBIN (test code = HGB) 14.1 g/dL 11.0-15.0 N HEMATOCRIT (test code = HCT) 41.2 % 33.0-45.0 N MEAN CELL VOLUME (test code = 84.8 fL 81.0-99.0 N MCV) MEAN CELL HGB (test code = MCH) 29.0 pg 27.0-33.0 N MEAN CELL HGB CONCETRATION 34.2 g/dL 33.0-37.0 N (test code = MCHC) RED CELL DISTRIBUTION WIDTH CV 13.1 % 11.5-14.5 N (test code = RDW) RED CELL DISTRIBUTION WIDTH SD 40.8 fL 37.0-54.0 N (test code = RDW-SD) PLATELET COUNT (test code = 282 x10 3/uL 150-400 N PLT) MEAN PLATELET VOLUME (test code 10.0 fL 7.0-9.0 H = MPV) NEUTROPHIL % (test code = NT%) 63.3 % 56.0-77.0 N IMMATURE GRANULOCYTE % (test 0.4 % 0.0-2.0 N code = IG%) LYMPHOCYTE % (test code = LY%) 27.8 % 14.0-32.0 N MONOCYTE % (test code = MO%) 6.3 % 4.8-9.0 N EOSINOPHIL % (test code = EO%) 1.8 % 0.3-3.7 N BASOPHIL % (test code = BA%) 0.4 % 0.0-2.0 N NUCLEATED RBC % (test code = 0.0 % 0-0 N NRBC%) NEUTROPHIL # (test code = NT#) 4.94 x10 3/uL 2.0-7.6 N IMMATURE GRANULOCYTE # (test 0.03 x10 3/uL 0.00-0.03 N code = IG#) LYMPHOCYTE # (test code = LY#) 2.17 x10 3/uL 1.0-3.8 N MONOCYTE # (test code = MO#) 0.49 x10 3/uL 0.1-0.8 N EOSINOPHIL # (test code = EO#) 0.14 x10 3/uL 0.0-0.2 N BASOPHIL # (test code = BA#) 0.03 x10 3/uL 0.0-0.2 N NUCLEATED RBC # (test code = 0.00 x10 3/uL 0.0-0.1 N NRBC#) MANUAL DIFF REQUIRED (test code NO = MDIFF) POCT [id number] 23:24:00 Test Item Value Reference Range Interpretation Comments POCT PREG (test code = 1605) negative On board controls acceptable with present C Line (test code = 3574) POCT PREG LOT # (test code = 3575) [id number] POCT PREG TEST DATE (test 10-09-2023 code = 3576) Lab Interpretation (test code = Normal 96806-4) [facility] [id number] 19:12:00 Test Item Value Reference Range Interpretation Comments POCT PREG (test code = 1605) Negative On board controls acceptable with C Yes Line (test code = 3574) POCT PREG LOT # (test code = 3575) POCT PREG TEST DATE (test code = 3576) [facility] [id number] 16:18:00 Test Item Value Reference Range Interpretation Comments POCT PREG (test code = 1605) Negative On board controls acceptable with C Yes Line (test code = 3574) POCT PREG LOT # (test code = 3575) POCT PREG TEST DATE (test code = 3576) [facility] [id number] 08:10:00 Test Item Value Reference Range Interpretation Comments SURGICAL PATH SPECIMENS (test code = SURG) RUN DATE: 09/11/20 [place] - LAB PAGE 1 RUN TIME: 809 Specimen Inquiry RUN USER: INTERFACE PATIENT: LACI HALL [facility] [place] U #: [id number] AGE/SX: 25/F ROOM: RE09/06/20REG DR: Rosalva Norris MD : 89 BED: DIS: STATUS: [facility]: SPEC #: [id number] RECD: 09/07/20 STATUS: STACEY REQ #: [id number] EDWINA: 09/07/[address]: Rosalva Norris MD ENTERED: 09/10/20 SP TYPE: SURG SPEC OTHR DR: DOES_NOT KNOW No Primary or Family PhysicianORDERED: GROSS AND MICRO CODES: [id number] - TONSIL, NOS COPIES TO: DOES_NOT KNOW No Primary [place] [id number] [address] PROCEDURES: GROSS AND MICRO (Incomplete) TISSUES: 1. TONSIL, NOS - Tonsil, left 2. TONSIL, NOS - Tonsil, right FINAL DIAGNOSIS Tonsil, left, tonsillectomy: Chronic tonsillitis. Tonsil, right, tonsillectomy: Chronic tonsillitis. GROSS AND MICROSCOPIC GROSS DESCRIPTION: Received in formalin and labeled "left tonsil" is a 2.9 cm tonsil. Received in formalin and labeled "right tonsil" is a 2.8 cm tonsil. Section code: (A) - Left tonsil; (B) - Right tonsil. MICROSCOPIC EXAMINATION: Both of the tonsils are expanded by varying sized and shaped reactive lymphoid follicles. CONTINUED ON NEXT PAGE RUN DATE: 09/11/20 [place] - LAB PAGE 2 RUN TIME: 809 Specimen Inquiry RUN USER: INTERFACE SPEC #: [id number] PATIENT: LACI HALL #[id number] (Continued) POST-OP DIAGNOSIS Chronic tonsillitis and adenoiditis, chronic otitis media PRE-OP DIAGNOSIS Chronic tonsillitis and adenoiditis, chronic otitis media ----- Signed SIGNATURE ON FILE Jorge Lindsay MD 09/11/20 0810 END OF REPORT Novel Coronavirus 2019 [id number] 08:22:00 Test Item Value Reference Range Interpretation [...] for the identification of SARS-CoV-2 RNA usingthe [employer] M2000 Sy stem under the FDA Emergen cy UseAuthorizatio n. The testing is perf ormed by tiff amaya in the procedures for the [employer] molecular diagnostic SARS-CoV-2 assa y in vitro. PROTHROMBIN [id number] 14:33:00 Test Item Value Reference Range Interpretation [...] (to prevent recurrent infar ct). THROMBOPLASTIN TIME [id number] 14:33:00 Test Item Value Reference Range Interpretation Comments THROMBOPLASTIN TIME 31.5 Seconds 25.0-39.5 N Therape utic Range: PARTIAL (test code = 50.4 - 88.3 Seconds PTT) Effective 08/24/2018 CBC W/AUTO [id number] 14:32:00 Test Item Value Reference Range Interpretation [...] REQUIRED (test code NO = MDIFF) PROTHROMBIN [id number] 14:31:00 Test Item Value Reference Range Interpretation [...] (to prevent recurrent infar ct). THROMBOPLASTIN TIME [id number] 14:31:00 Test Item Value Reference Range Interpretation Comments THROMBOPLASTIN TIME PARTIAL (test Seconds 25.0-39.5 code = PTT) HCG SERUM [id number] 14:27:00 Test Item Value Reference Range Interpretation Comments HCG SERUM QUAL (test code = SERUM NEGATIVE NEGATIVE HCGQL) CT ABDOMEN PELVIS W [id number] 01:15:53 END OF REPORT Ordering Physician: DAO [...] No evidence of appendicitis.RL: [id number] OF REPORT [facility] METABOLIC PANEL ([id number])2020-05-23 00:26:00 Test Item Value Reference Range Interpretation Comments NA (test code = 139 mmol/L 135-145 9652456995) K (test code = 4.2 mmol/L 3.5-5 3444042178) CL (test code = 104 mmol/L 98-108 3739265681) CO2 TOTAL (test code = 26 mmol/L 23-31 5196572646) AGAP (test code = 2-16 1444998432) BUN (test code = 13 mg/dL 7-23 5831612381) GLUCOSE (test code = 101 mg/dL 70-110 9715093933) CREATININE (test code = 0.56 mg/dL 0.5-1.04 7881884460) TOTAL BILI (test code = 0.6 mg/dL 0.1-1.4 0050326552) CALCIUM (test code = 7.4 mg/dL 8.6-10.6 L 7860462097) T PROTEIN (test code = 8.8 g/dL 6.3-8.2 H 7738113501) ALBUMIN (test code = 4.2 g/dL 3.5-5 2875997168) ALK PHOS (test code = 66 U/L 34-122 9182851772) ALTv (test code = 26 U/L 5-35 1742-6) AST(SGOT) (test code = 34 U/L 13-40 2996791212) eGFR Calculation mL/min/1.73m2 (Non-) (test code = 1099639778) eGFR Calculation mL/min/1.73m2 () (test code = 3320717493) LUDY (test code = LUDY) Association of [...] tests). Lab Interpretation Abnormal (test code = 54720-9) [facility] [id number] 00:26:00 Test Item Value Reference Range Interpretation Comments LIPASE (test code = 7898085173) 107 U/L 0-220 Lab Interpretation (test code = Normal 11970-1) [facility] ShorelineUrinalysis2021-01-13 00:24:00 Test Item Value Reference Range Interpretation Comments APPEARANCE (test code = Hazy Clear A 9167699373) COLOR (test code = Yellow Yellow 7882738755) PH (test code = 4.8-8.0 0262660417) SP GRAVITY (test code = 1.003-1.030 7854920739) GLU U QUAL (test code = Normal Normal 5434759918) BLOOD (test code = Negative Negative 9803933792) KETONES (test code = Negative Negative 7926994732) PROTEIN (test code = Negative Negative 2887-8) UROBILIN (test code = Normal Normal 1099958047) BILIRUBIN (test code = Negative Negative 5621820872) NITRITE (test code = Negative Negative 5840975880) LEUK MARCIN (test code = Negative Negative 2556158154) RBC/HPF (test code = <1 See_Comment [Autom ated message] 5319701417) The system [employer] generated this result transmitted ref erence range: 0 - 3 HP F. The reference range was not used to int erpret this result as normal/abnormal . WBC/HPF (test code = See_Comment [Autom ated message] [id number]) The system [employer] generated this result transmitted ref erence range: 0 - 5 HP F. The reference range was not used to int erpret this result as normal/abnormal . BACTERIA (test code = Negative Negative [id number]) MUCOUS (test code = Slight Negative LPF A 2535999422) SQ EPITH (test code = HPF 6785708728) Lab Interpretation (test Abnormal code = 40796-9) [facility] with [id number] 00:12:00 Test Item Value Reference Range Interpretation Comments WBC (test code = See_Comment [Automated message] 6690-2) The system [employer] generated this result transmitted ref erence range: 4.30 - 1 1.10 10*3/?L. The re ference range was not u sed to interpret this result as normal/abnor mal. RBC (test code = See_Comment [Automated message] 789-8) The system [employer] generated this result transmitted ref erence range: [...] RDW-SD (test code 40.4 fL 39-49.9 = 82957-4) RDW-CV (test code 13.0 % 12-15.5 = 788-0) PLT (test code = See_Comment [Automated message] 777-3) The system [employer] generated this result transmitted ref erence range: 166 - 35 8 10*3/?L. The re ference range was not u sed to interpret this result as normal/abnor mal. MPV (test code = 10.6 fL 9.5-12.9 64143-9) NRBC/100 WBC (test See_Comment [Automat ed message] code = [id number]) The syste m which generated this result transmitted ref erence range: 0.0 - 10 .0 /100 WBCs. The refer ence range was not u sed to interpret this result as normal/abnor mal. NRBC x10^3 (test <0.01 See_Comment [Automated message] code = [id number]) The syste m which generated this result transmitted ref erence range: 10*3/?L. The reference range was not used to interpr et this result as normal/abnormal . GRAN MAT (NEUT) % 57.7 % (test code = 770-8) IMM GRAN % (test 0.40 % code = [id number]) LYMPH % (test code 32.1 % = 736-9) MONO % (test code 7.4 % = 5905-5) EOS % (test code = 2.1 % 713-8) BASO % (test code 0.3 % = 706-2) GRAN MAT 4.61 10*3/uL 1.88-7.09 x10^3(ANC) (test code = 5597528870) IMM GRAN x10^3 0.03 10*3/uL 0-0.06 (test code = 9978520701) LYMPH x10^3 (test 2.56 10*3/uL 1.32-3.29 code = 731-0) MONO x10^3 (test 0.59 10*3/uL 0.33-0.92 code = 742-7) EOS x10^3 (test 0.17 10*3/uL 0.03-0.39 code = 711-2) BASO x10^3 (test <0.03 0.01-0.07 code = 704-7) [id number] 00:09:00 Test Item Value Reference Range Interpretation Comments POCT PREG (test code = 1605) negative On board controls acceptable with present C Line (test code = 3574) POCT PREG LOT # (test code = 3575) [id number] POCT PREG TEST DATE (test 01/08/2022 code = 3576) Lab Interpretation (test code = Normal 12980-9) [facility] Notes Date/Time Note Provider Source 2022-09-11 12:34:00-00:00 [facility]) Discharge Summary REPORT#:[id number] REPORT STATUS: Signed DATE:09/11/22 TIME: 1234 PATIENT: LACI HALL UNIT #: [id number] ROOM[address]BED: [address] : 95 AGE: 27 SEX: F ATTEND: Fercho Barnhart od, MD ADM AUTHOR: Mykel Fontana ADMINISTRATIVE PROGRAM SPECIALIST * ALL edits or amendments must be made on the el ectronic/computer document * PCP PCP PCP: PCP: Yaya Chisholm MD Discharge to: home General Information Date of admission: Observation Start Date: 09/09/22 Date of admission: 09/10/22 Discharge date: 09/11/22 Discharge diagnosis: - Hypocalcemia. - Chest pain. - Hypophosphatemia. - Hypomagnesemia. - Mild enlargement of the right thyroid lobe/TI- RADS TR 4 nodule. - HX of hypoparathyroidism with chronic hypocalcemia, age, Sjogren's syndrome, Chiari malformation. 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 Her CA w as low. She was seen by endocrine for Low CA. She also found to have Low PTH. She was started on Rocaltrol 0.5 mcg p.o. twice daily, change calci um carbonate to 1250 p.o. 3 times daily, and chlorthalidone. We also repalce her mag. She will go home today. Pt. condition on discharge: improved, stable Allergies: Allergies: haloperidol (From HALDOL) (Coded, Mild, MASTOIDI TIS, 09/04/20) vancomycin (Coded, Mild, MASTOIDITIS, 09/04/20) Med Rec Med Rec Discharge meds: Stop taking the following medications: CALCITRIOL (ROCALTROL) 0.5 MCG CAP 0.5 MICROGRAM ORAL DAILY. Continue taking these medications: HYDROXYCHLOROQUINE SULFATE (PLAQUENIL) 200 MG TA B 200 MILLIGRAM ORAL DAILY. Nicotine (NICODERM CQ 7 MG) 7 MG/24 HOUR PATCH 1 PATCH TOPICAL EVERY 24 HOURS. ASPIRIN (ASPIRIN) 81 MG TAB.CHEW 81 MILLIGRAM ORAL DAILY. CLOPIDOGREL (PLAVIX) 300 MG TAB 200 MILLIGRAM ORAL TWICE DAILY. PILOCARPINE (SALAGEN) 5 MG TAB 5 MILLIGRAM ORAL THREE TIMES A DAY. NAPROXEN SODIUM ER (NAPRELAN) 375 MG TAB.SA 375 MILLIGRAM ORAL TWICE DAILY. CALCIUM CARBONATE (CALCIUM CARBONATE 500 MG/5 ML ) 500 MG/5ML ORAL.SUSP 500 MILLIGRAM ORAL 5 TIMES A DAY. Start taking the following new medications: CALCITRIOL (ROCALTROL) 0.25 MCG CAP 0.5 MICROGRAM ORAL TWICE DAILY. Days = 90 Qty = 360 No Refills MAGNESIUM OXIDE (MAG-OXIDE) 400 MG TAB 400 MILLIGRAM ORAL THREE TIMES A DAY. Days = 90 Qty = 270 No Refills CALCIUM CARBONATE (CALCIUM CARBONATE 500 MG/5 ML ) 500 MG/5ML ORAL.SUSP 1,250 MILLIGRAM ORAL THREE TIMES A DAY. Days = 90 Qty = 10 No Refills Discharge Instructions PCP )( Discharge to: Home/Self Care Discharge Instructions Additional Discharge Routines: PCP Follow-Up, Co nsultant Follow-Up )( Diet: Cardiac )( Activity: Resume Normal Activity, As Tolerate d Follow-up Appointments PCP follow up: PCP: Yaya Chisholm MD PCP follow up timeframe: In 2-3 weeks Consulting provider 1: Provider 1: Yadiel Manjarrez MD Specialty: Endocrinology [place] [place] Consult follow up timeframe: In 1-2 weeks Consulting provider 2: Provider 2: Gabino Meade MD Specialty: Nephrology Follow up timeframe: In 1-2 weeks Electronically Signed by Mykel Fontana NP on 08/31 at 1349 Electronically Signed by Nayan Barnhart MD on 0 09/20/22 at 1217 RPT #:[id number] END OF REPORT 2022-09-11 12:19:00-00:00 [facility] Endocrinology Progress Note REPORT#:[id number] REPORT STATUS: Signed DATE:09/11/22 TIME: 1219 PATIENT: LACI HALL UNIT #: [id number] ROOM/BED: [place] [address] : 95 AGE: 27 SEX: F ATTEND: Fercho Barnhart od, MD ADM AUTHOR: Kelton Cotto * ALL edits or amendments must be made on the [employer]/computer document * Subjective Chief complaint: f/u hypoparathyroidism calcium has improved Objective General VS: Last Documented: Result Date Time Pulse Ox 96 09/11 1042 B/P 123/72 09/11 1042 B/P Mean 89.2 09/11 1042 O2 Delivery Room air 09/11 1042 Temp 97.9 09/11 1042 Pulse 103 09/11 1042 Resp 14 09/11 1042 PATIENT WEIGHT: Weight (lb): Weight (oz): Weight (kg): 95.455 Medications: Active Meds + DC'd Last 24 Hrs Magnesium Sulfate (MAGNESIUM SULFATE 2GM/SWFI 50 ML) 50 ML ONCE ONE IV ( DC) Hydrocodone Bitart/Acetaminophen (NORCO 5/325) 1 TAB Q4H PRN PRN PO Magnesium Oxide (MAG-OX 400) 400 MG TID PO (CKD) Aspirin (ASPIRIN) 81 MG DAILY PO Calcitriol (RocaltroL) 0.5 MCG BID PO Calcium Carbonate (CALCIUM CARBONATE) 1,250 MG T ID PO (CKD) Hydroxychloroquine Sulfate (PlaqueniL) 200 MG DA GERI PO Pilocarpine HCl (SALAGEN) 5 MG TID PO Nicotine (NICODERM) 7 MG Q24H TRANSDERM (CKD) Docusate Sodium (COLACE) 100 MG BID PO Acetaminophen (TYLENOL) 650 MG Q4H PRN PRN PO Hydralazine HCl (APRESOLINE) 10 MG Q6H PRN PRN I V Ondansetron HCl (ZOFRAN) 4 MG Q4H PRN PRN IV Dietitian nutrition assessment The data set between the solid lines has been im ported from the dietitian's assessment. BMI Calculated: 33.0 Nutrition related diagnosis: Nutrition diagnosis details: Nutrition problem: Nutrition etiology: Nutrition signs and symptoms: Nutrition prescription: Dietitian name: Assessment completed: Physical Exam General appearance: alert, awake, oriented HEENT: normocephalic Neck: supple Cardiovascular: regular rate rhythm Respiratory: no distress Abdomen: soft Genitourinary: not indicated Extremities: warm Musculoskeletal: normal inspection Neuro/VOCATIONAL PLACEMENT SPECIALIST: alert, oriented X 3, normal speech Skin: warm Findings/data: Laboratory Tests: 09/11 524 Chemistry Sodium (134 - 147 mEq/L) 137 Potassium (3.4 - 5.0 mEq/L) 4.2 Chloride (100 - 108 mEq/L) 104 Carbon Dioxide (21 - 33 mEq/l) 23 Anion Gap (0 - 20) 14 BUN (7 - 18 mg/dL) 10 Creatinine (0.6 - 1.3 mg/dL) 0.6 Glomerular Filtr Rate (110 - 120) 126.1 H Glucose (70 - 110 mg/dL) 86 Calcium (8.0 - 10.5 mg/dL) 7.5 L Ionized Calcium Renee (1.09 - 1.30 MMOL/L) 0.94 L Phosphorus (2.5 - 4.9 MG/DL) 4.8 Magnesium (1.80 - 2.40 mg/dL) 1.76 L Hematology WBC (4.5 - 11.0 x10 3/uL) 7.0 RBC (3.54 - 5.02 x10 6/uL) 4.75 Hgb (11.0 - 15.0 g/dL) 13.6 Hct (33.0 - 45.0 %) 40.7 MCV (81.0 - 99.0 fL) 85.7 MCH (27.0 - 33.0 pg) 28.6 MCHC (33.0 - 37.0 g/dL) 33.4 RDW (11.5 - 14.5 %) 13.0 Plt Count (150 - 400 x10 3/uL) 246 MPV (7.0 - 9.0 fL) 10.7 H Neut % (Auto) (56.0 - 77.0 %) 58.1 Lymph % (Auto) (14.0 - 32.0 %) 31.3 Crowley % (Auto) (4.8 - 9.0 %) 7.0 Eos % (Auto) (0.3 - 3.7 %) 2.8 Baso % (Auto) (0.0 - 2.0 %) 0.4 Neut # (Auto) (2.0 - 7.6 x10 3/uL) 4.07 Lymph # (Auto) (1.0 - 3.8 x10 3/uL) 2.20 Crowley # (Auto) (0.1 - 0.8 x10 3/uL) 0.49 Eos # (Auto) (0.0 - 0.2 x10 3/uL) 0.20 Baso # (Auto) (0.0 - 0.2 x10 3/uL) 0.03 Abs Immat Gran (auto) (0.00 - 0.03 x10 3/uL) 0. 03 Add Manual Diff NO Immature Gran % (0.0 - 2.0 %) 0.4 Nucleated RBC % (0 - 0 %) 0.0 Nucleated RBCs # (Man) (0.0 - 0.1 x10 3/uL) 0.0 0 Recent Impressions: ULTRASOUND - US HEAD AND NECK 09/10 1457 Report Impression - Status: SIGNED Entered: 09/10/2022 8456 IMPRESSION: 1. Mild enlargement of the right thyroid lobe. 2. TI-RADS TR 4 nodule is noted arising from the inferior pole of the right thyroid lobe measuring 9 x 7 x 9 mm. B y TI-RADS criteria, this nodule is below the size threshold for foll ow-up or FNA biopsy. 3. Nonspecific mildly heterogeneous thyroid pare nchymal echotexture without hyperemia. Impression By: Wen - Satya Patel M.D. Laboratory Tests: 09/11 0525 Chemistry Sodium (134 - 147 mEq/L) 137 Potassium (3.4 - 5.0 mEq/L) 4.2 Chloride (100 - 108 mEq/L) 104 Carbon Dioxide (21 - 33 mEq/l) 23 Anion Gap (0 - 20) 14 BUN (7 - 18 mg/dL) 10 Creatinine (0.6 - 1.3 mg/dL) 0.6 Glomerular Filtr Rate (110 - 120) 126.1 H Glucose (70 - 110 mg/dL) 86 Calcium (8.0 - 10.5 mg/dL) 7.5 L Ionized Calcium Renee (1.09 - 1.30 MMOL/L) 0.94 L Phosphorus (2.5 - 4.9 MG/DL) 4.8 Magnesium (1.80 - 2.40 mg/dL) 1.76 L Hematology WBC (4.5 - 11.0 x10 3/uL) 7.0 RBC (3.54 - 5.02 x10 6/uL) 4.75 Hgb (11.0 - 15.0 g/dL) 13.6 Hct (33.0 - 45.0 %) 40.7 MCV (81.0 - 99.0 fL) 85.7 MCH (27.0 - 33.0 pg) 28.6 MCHC (33.0 - 37.0 g/dL) 33.4 RDW (11.5 - 14.5 %) 13.0 Plt Count (150 - 400 x10 3/uL) 246 MPV (7.0 - 9.0 fL) 10.7 H Neut % (Auto) (56.0 - 77.0 %) 58.1 Lymph % (Auto) (14.0 - 32.0 %) 31.3 Crowley % (Auto) (4.8 - 9.0 %) 7.0 Eos % (Auto) (0.3 - 3.7 %) 2.8 Baso % (Auto) (0.0 - 2.0 %) 0.4 Neut # (Auto) (2.0 - 7.6 x10 3/uL) 4.07 Lymph # (Auto) (1.0 - 3.8 x10 3/uL) 2.20 Crowley # (Auto) (0.1 - 0.8 x10 3/uL) 0.49 Eos # (Auto) (0.0 - 0.2 x10 3/uL) 0.20 Baso # (Auto) (0.0 - 0.2 x10 3/uL) 0.03 Abs Immat Gran (auto) (0.00 - 0.03 x10 3/uL) 0 .03 Add Manual Diff NO Immature Gran % (0.0 - 2.0 %) 0.4 Nucleated RBC % (0 - 0 %) 0.0 Nucleated RBCs # (Man) (0.0 - 0.1 x10 3/uL) 0.0 0 Recent Impressions: ULTRASOUND - US HEAD AND NECK 09/10 710 Report Impression - Status: SIGNED Entered: 09/10/2022 5363 IMPRESSION: 1. Mild enlargement of the right thyroid lobe. 2. TI-RADS TR 4 nodule is noted arising from the inferior pole of the right thyroid lobe measuring 9 x 7 x 9 mm. B y TI-RADS criteria, this nodule is below the size threshold for foll ow-up or FNA biopsy. 3. Nonspecific mildly heterogeneous thyroid pare nchymal echotexture without hyperemia. Impression By: [email or web address] - Satya Patel M.D. Diagnosis, Assessment Plan Free Text A P: 1.Hypocalcemia hx of hypoparathyroidism calcium carbonate and Rocaltrol optimized by nep hrology 24-hour urine -pending US thyroid -f/u outpatient genetic testing outpatient DC Plan:calcium carbonate, Rocaltrol, ma g ox, and Forteo (sent to her pharmacy outpatient), follow at next available appointmen t. 2.Hypomagnesemia on mag-ox TID 3.History of Sjogren's 4.History of Chiari malformation Thank you Mykel Fontana NP for the kind consult. at 1337 Electronically Signed by Yaidel Manjarrez MD on 0 09/13/22 at 1249 RPT #:[id number] END OF REPORT 2022-09-11 08:10:00-00:00 [facility] Hospitalist Progress Note REPORT#:[id number] REPORT STATUS: Signed DATE:09/11/22 TIME: 809 PATIENT: LACI HALL UNIT #: [id number] ROOM/BED: [place] [address] : 95 AGE: 27 SEX: F ATTEND: Fercho Barnhart od, MD ADM AUTHOR: Mykel Fontana NP * ALL edits or amendments must be made on the [employer]/computer document * Subjective Chief complaint: She is feeling better. No Cp, fever, chills. NO N/v/d. BP and HR stable. Review of Systems Constitutional: Reports: fatigue, generalized weakness. Allergy/Immun: Denies: hives, itching, rhinorrhea. ENT: Denies: ear ringing, mouth pain, sore throat, th roat swelling. Respiratory: Denies: hemoptysis, non productive cough, pleuri tic pain, productive cough ( sputum). Cardiovascular: Denies: COOLEY (dyspnea on exertion), orthopnea, pa lpitations. GI: Denies: anorexia, constipation, GERD, hematemesi s, nausea, rectal pain. : Denies: flank pain, nocturia, urgency. Heme: Denies: bleeding, bruising. Neuro: Denies: change in LOC, focal weakness. Objective General VS/I O: Vital Signs: Date Time Temp Pulse Resp B/P B/P Pulse O2 O2 F low FiO2 Mean Ox Delivery Rate 09/11 0734 36.6 71 14 114/79 90.8 97 Room air 09/11 0200 36.6 79 13 111/78 89 99 09/10 1938 36.5 82 16 114/80 91.1 96 PATIENT WEIGHT: Weight (lb): Weight (oz): Weight (kg): 95.455 Medications: Active Meds + DC'd Last 24 Hrs Hydrocodone Bitart/Acetaminophen (NORCO 5/325) 1 TAB Q4H PRN PRN PO Magnesium Oxide (MAG-OX 400) 400 MG TID PO (CKD) Aspirin (ASPIRIN) 81 MG DAILY PO Calcitriol (RocaltroL) 0.5 MCG BID PO Calcium Carbonate (CALCIUM CARBONATE) 1,250 MG T ID PO (CKD) Hydroxychloroquine Sulfate (PlaqueniL) 200 MG DA GERI PO Pilocarpine HCl (SALAGEN) 5 MG TID PO Nicotine (NICODERM) 7 MG Q24H TRANSDERM (CKD) Docusate Sodium (COLACE) 100 MG BID PO Acetaminophen (TYLENOL) 650 MG Q4H PRN PRN PO Hydralazine HCl (APRESOLINE) 10 MG Q6H PRN PRN I V Ondansetron HCl (ZOFRAN) 4 MG Q4H PRN PRN IV Dietitian nutrition assessment The data set between the solid lines has been im ported from the dietitian's assessment. BMI Calculated: 33.0 Nutrition related diagnosis: Nutrition diagnosis details: Nutrition problem: Nutrition etiology: Nutrition signs and symptoms: Nutrition prescription: Dietitian name: Assessment completed: Physical Exam General appearance: alert, awake, oriented Head/Eyes: atraumatic, normocephalic, PERRLA Neck: supple/no meningismus, no bruit/NL carotid s, no JVD Cardiovascular: normal capillary refill, normal heart sounds, regular rate rhythm Respiratory: aerating well, symmetric expansion, no distress Abdomen: non-tender, normal bowel sounds, soft Genitourinary: no bladder distention, no flank p ain Extremities: no calf tenderness, no clubbing, no cyanosis Musculoskeletal: no muscle spasm Neuro/VOCATIONAL PLACEMENT SPECIALIST: alert, oriented X 3 Results Findings/Data: Laboratory Tests 09/11 0525 Chemistry Sodium (134 - 147 mEq/L) 137 Potassium (3.4 - 5.0 mEq/L) 4.2 Chloride (100 - 108 mEq/L) 104 Carbon Dioxide (21 - 33 mEq/l) 23 Anion Gap (0 - 20) 14 BUN (7 - 18 mg/dL) 10 Creatinine (0.6 - 1.3 mg/dL) 0.6 Glomerular Filtr Rate (110 - 120) 126.1 H Glucose (70 - 110 mg/dL) 86 Calcium (8.0 - 10.5 mg/dL) 7.5 L Ionized Calcium Renee (1.09 - 1.30 MMOL/L) 0.94 L Phosphorus (2.5 - 4.9 MG/DL) 4.8 Magnesium (1.80 - 2.40 mg/dL) 1.76 L Laboratory Tests 09/11 0525 Hematology WBC (4.5 - 11.0 x10 3/uL) 7.0 RBC (3.54 - 5.02 x10 6/uL) 4.75 Hgb (11.0 - 15.0 g/dL) 13.6 Hct (33.0 - 45.0 %) 40.7 MCV (81.0 - 99.0 fL) 85.7 MCH (27.0 - 33.0 pg) 28.6 MCHC (33.0 - 37.0 g/dL) 33.4 RDW (11.5 - 14.5 %) 13.0 Plt Count (150 - 400 x10 3/uL) 246 MPV (7.0 - 9.0 fL) 10.7 H Neut % (Auto) (56.0 - 77.0 %) 58.1 Lymph % (Auto) (14.0 - 32.0 %) 31.3 Crowley % (Auto) (4.8 - 9.0 %) 7.0 Eos % (Auto) (0.3 - 3.7 %) 2.8 Baso % (Auto) (0.0 - 2.0 %) 0.4 Neut # (Auto) (2.0 - 7.6 x10 3/uL) 4.07 Lymph # (Auto) (1.0 - 3.8 x10 3/uL) 2.20 Crowley # (Auto) (0.1 - 0.8 x10 3/uL) 0.49 Eos # (Auto) (0.0 - 0.2 x10 3/uL) 0.20 Baso # (Auto) (0.0 - 0.2 x10 3/uL) 0.03 Abs Immat Gran (auto) (0.00 - 0.03 x10 3/uL) 0. 03 Add Manual Diff NO Immature Gran % (0.0 - 2.0 %) 0.4 Nucleated RBC % (0 - 0 %) 0.0 Nucleated RBCs # (Man) (0.0 - 0.1 x10 3/uL) 0.0 0 Radiology data: Recent Impressions: ULTRASOUND - US HEAD AND NECK 09/10 3486 Report Impression - Status: SIGNED Entered: 09/10/2022 7093 IMPRESSION: 1. Mild enlargement of the right thyroid lobe. 2. TI-RADS TR 4 nodule is noted arising from the inferior pole of the right thyroid lobe measuring 9 x 7 x 9 mm. B y TI-RADS criteria, this nodule is below the size threshold for foll ow-up or FNA biopsy. 3. Nonspecific mildly heterogeneous thyroid pare nchymal echotexture without hyperemia. Impression By: [email or web address] - Satya Patel M.D. Results: labs reviewed, vital signs reviewed, vi emily signs stable, current med profile rev'd Treatment Prophylaxis Treatment Prophylaxis Oxygen: room air Diagnosis, Assessment Plan Code status: full code Plan discussed with: patient, admitting physicia n, consultants, nurse Free Text DxA P Notes Free text DxA P notes: Assessment and Plan: - Hypocalcemia. - Chest pain. - Hypophosphatemia. - Hypomagnesemia. - Mild enlargement of the right thyroid lobe/TI- RADS TR 4 nodule. - HX of hypoparathyroidism with chronic hypocalcemia, age, Sjogren's syndrome, Chiari malformation. Plan: Floor. May require genetic testing as an outpatient and she may benefit from synthetic PTH. We will increase Rocaltrol 0.5 mcg p.o. twi ce daily, change calcium carbonate to 1250 p.o. 3 times daily, will add c hlorthalidone to help reduce calcium excretion after 24-hour urine collection is completed Endocrine for Low Ca and Low PTH. Ionized Ca is low. Continue Monitor CA. Pain meds. Antiemetics. Follow labs and repalce as needed. Continue Home meds. Monitor. Electronically Signed by Mykel Fontana NP on 08/31 at 0813 Electronically Signed by Nayan Barnhart MD on 0 09/20/22 at 1215 [facility] #:[id number] END OF REPORT 2022-09-11 06:47:00-00:00 [facility] Nephrology Progress Note REPORT#:[id number] REPORT STATUS: Signed DATE:09/11/22 TIME: 0647 PATIENT: LACI HALL UNIT #: [id number] ROOM/BED: [place] [address] : 95 AGE: 27 SEX: F ATTEND: Fercho Barnhart od, MD ADM AUTHOR: Gabino Meade MD * ALL edits or amendments must be made on the [employer] document * Subjective Chief complaint: Generalized weakness/muscle spasm HPI: Patient seen and evaluated, discussed with care team, 27-year-old female with history of hypoparathyroidism and chroni c hypocalcemia, Sjogren's syndrome and Chiari malformation who was sent to the emergency room from her analytics intern office for low calcium of 6.5. Patient complaine d of generalized weakness and muscle spasm. Patient is on calcium supplement a nd her calcium usually runs around 7.5. Reportedly her hypoparathyroidism wa s diagnosed at age 12. Associated symptoms included chest pain and shor tness of breath. Laboratory this morning showed sodium 137, potassium 4, CO2 27, BUN 11, creatinine 0.6, calcium 6.6, ionized calcium yesterday 0.86, PTH 87, 25-hydroxy vitamin D level is normal. Renal consult was requested for evaluation management of her chronic hypocalcemia. Patient reports: Yes: complaints. Comments: Patient seen and evaluated, HPI no change from i nitial, feels okay. Review of Systems Constitutional: Reports: fatigue. Denies: chills, fever. Skin: Denies: abrasion, bruising. Allergy/Immun: Denies: allergic reaction, anaphylaxis. Eyes: Denies: redness, discharge. ENT: Denies: ear drainage, ear ringing. Respiratory: Denies: hemoptysis, SOB. Cardiovascular: Denies: chest pain. Objective General VS/I O: Vital Signs: Date Time Temp Pulse Resp B/P B/P Pulse O2 O2 F low FiO2 Mean Ox Delivery Rate 09/11 0200 36.6 79 13 111/78 89 99 09/10 1938 36.5 82 16 114/80 91.1 96 09/10 0803 36.4 79 14 108/71 82.9 89 Room air PATIENT WEIGHT: Weight (lb): Weight (oz): Weight (kg): 95.455 Medications Active Meds + DC'd Last 24 Hrs Hydrocodone Bitart/Acetaminophen (NORCO 5/325) 1 TAB Q4H PRN PRN PO Magnesium Oxide (MAG-OX 400) 400 MG TID PO (CKD) Aspirin (ASPIRIN) 81 MG DAILY PO Calcitriol (RocaltroL) 0.5 MCG DAILY PO (DC) Calcitriol (RocaltroL) 0.5 MCG BID PO Calcium Carbonate (CALCIUM CARBONATE) 500 MG 5XD AY PO (DC) Calcium Carbonate (CALCIUM CARBONATE) 1,250 MG T ID PO (CKD) Hydroxychloroquine Sulfate (PlaqueniL) 200 MG DA GERI PO Pilocarpine HCl (SALAGEN) 5 MG TID PO Nicotine (NICODERM) 7 MG Q24H TRANSDERM (CKD) Magnesium Oxide (MAG-OX 400) 400 MG ONCE ONE PO (DC) Docusate Sodium (COLACE) 100 MG BID PO Acetaminophen (TYLENOL) 650 MG Q4H PRN PRN PO Hydralazine HCl (APRESOLINE) 10 MG Q6H PRN PRN I V Ondansetron HCl (ZOFRAN) 4 MG Q4H PRN PRN IV Physical Exam General appearance: alert, no acute distress Head/eyes: atraumatic, normocephalic ENT: normal nose Neck: non-tender, supple/no meningismus Cardiovascular: normal heart sounds, no rub Respiratory: aerating well, symmetric expansion Abdomen: non-tender, soft Genitourinary: no flank pain Extremities: non-tender, no edema Musculoskeletal: no CVA tenderness, no tendernes s Neuro/VOCATIONAL PLACEMENT SPECIALIST: alert, normal speech Skin: dry, intact Results Findings/Data: Laboratory Tests 09/10 Chemistry Sodium (134 - 147 mEq/L) 137 Potassium (3.4 - 5.0 mEq/L) 4.0 Chloride (100 - 108 mEq/L) 105 Carbon Dioxide (21 - 33 mEq/l) 27 Anion Gap (0 - 20) 9 BUN (7 - 18 mg/dL) 11 Creatinine (0.6 - 1.3 mg/dL) 0.6 Glomerular Filtr Rate (110 - 120) 126.1 H Glucose (70 - 110 mg/dL) 97 Calcium (8.0 - 10.5 mg/dL) 6.6 L Ionized Calcium Renee (1.09 - 1.30 MMOL/L) 0.86 L Phosphorus (2.5 - 4.9 MG/DL) 6.1 H Magnesium (1.80 - 2.40 mg/dL) 1.72 L Total Bilirubin (0.0 - 1.0 mg/dL) 0.50 AST (15 - 37 IUnit/L) 17 ALT (30 - 65 IUnit/L) 17 L Total Alk Phosphatase (20 - 125 IUnit/L) 65 Total Protein (6.4 - 8.2 g/dL) 7.8 Albumin (3.4 - 5.0 g/dL) 3.40 Vitamin D 25-Hydroxy (30 - 100 ng/mL) 35.7 PTH Intact (14.0 - 72.0 pg/mL) 7.8 L 09/09 09/09 09/09 1511 1511 1511 Chemistry Sodium (134 - 147 mEq/L) 139 Potassium (3.4 - 5.0 mEq/L) 3.7 Chloride (100 - 108 mEq/L) 103 Carbon Dioxide (21 - 33 mEq/l) 28 Anion Gap (0 - 20) 12 BUN (7 - 18 mg/dL) 11 Creatinine (0.6 - 1.3 mg/dL) 0.7 Glomerular Filtr Rate (110 - 120) 121.5 H Glucose (70 - 110 mg/dL) 90 Calcium (8.0 - 10.5 mg/dL) 6.7 L Phosphorus (2.5 - 4.9 MG/DL) 4.8 Magnesium (1.80 - 2.40 mg/dL) 1.62 L Total Bilirubin (0.0 - 1.0 mg/dL) 0.30 Direct Bilirubin (0.0 - 0.30 MG/DL) 0.10 AST (15 - 37 IUnit/L) 18 ALT (30 - 65 IUnit/L) 20 L Total Alk Phosphatase (20 - 125 IUnit/L) 73 Troponin I High Sens (0 - 34 ng/L) < 3 C-Reactive Protein (<10.0 mg/L) 12.0 H B-Natriuretic Peptide (0 - 100 PG/ML) 3.0 Total Protein (6.4 - 8.2 g/dL) 8.2 Albumin (3.4 - 5.0 g/dL) 3.60 TSH (0.42 - 5.47 IU/mL) 2.15 Laboratory Tests 09/10 05/ 0600 1511 Hematology WBC (4.5 - 11.0 x10 3/uL) 6.1 7.8 RBC (3.54 - 5.02 x10 6/uL) 4.69 4.86 Hgb (11.0 - 15.0 g/dL) 13.4 14.1 Hct (33.0 - 45.0 %) 40.7 41.2 MCV (81.0 - 99.0 fL) 86.8 84.8 MCH (27.0 - 33.0 pg) 28.6 29.0 MCHC (33.0 - 37.0 g/dL) 32.9 L 34.2 RDW (11.5 - 14.5 %) 13.3 13.1 Plt Count (150 - 400 x10 3/uL) 260 282 MPV (7.0 - 9.0 fL) 10.7 H 10.0 H Neut % (Auto) (56.0 - 77.0 %) 55.9 L 63.3 Lymph % (Auto) (14.0 - 32.0 %) 31.9 27.8 Crowley % (Auto) (4.8 - 9.0 %) 8.2 6.3 Eos % (Auto) (0.3 - 3.7 %) 3.4 1.8 Baso % (Auto) (0.0 - 2.0 %) 0.3 0.4 Neut # (Auto) (2.0 - 7.6 x10 3/uL) 3.40 4.94 Lymph # (Auto) (1.0 - 3.8 x10 3/uL) 1.94 2.17 Crowley # (Auto) (0.1 - 0.8 x10 3/uL) 0.50 0.49 Eos # (Auto) (0.0 - 0.2 x10 3/uL) 0.21 H 0.14 Baso # (Auto) (0.0 - 0.2 x10 3/uL) 0.02 0.03 Abs Immat Gran (auto) (0.00 - 0.03 x10 3/uL) 0. 02 0.03 Add Manual Diff NO NO Immature Gran % (0.0 - 2.0 %) 0.3 0.4 Nucleated RBC % (0 - 0 %) 0.0 0.0 Nucleated RBCs # (Man) (0.0 - 0.1 x10 3/uL) 0.0 0 0.00 Laboratory Tests 09/09 1555 Urines Urine HCG, Qual (NEGATIVE) NEGATIVE Recent Impressions: ULTRASOUND - US HEAD AND NECK 09/10 1458 Report Impression - Status: SIGNED Entered: 09/10/2022 3986 IMPRESSION: 1. Mild enlargement of the right thyroid lobe. 2. TI-RADS TR 4 nodule is noted arising from the inferior pole of the right thyroid lobe measuring 9 x 7 x 9 mm. B y TI-RADS criteria, this nodule is below the size threshold for foll ow-up or FNA biopsy. 3. Nonspecific mildly heterogeneous thyroid pare nchymal echotexture without hyperemia. Impression By: [email or web address] - Satya Patel M.D. Diagnosis, Assessment Plan Free Text A P: Patient seen and evaluated, discussed with care team, images and laboratories reviewed. History of Sjogren's. 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 We will try to raise serum calcium enough to resolve her symptoms to avoid hypercalciuria. May require genetic testing as an outpatient and she may benefit from synthetic PTH. We will increase Rocaltrol 0.5 mcg p.o. twi ce daily, change calcium carbonate to 1250 p.o. 3 times daily, will add c hlorthalidone to help reduce calcium excretion after 24-hour urine collection is completed Hypophosphatemia: Due to hypoparathyroidism Hypomagnesemia 09/11/2022 laboratory this morning showed sodium 137, potassium 4.2, CO2 23, BUN 10, creatinine 0.6, ionized calcium 0.94 better, total calcium 7.5 better, magnesium 1.76 continue oral supplement, 24-hour urine for calcium and creatinine still pending, hemoglobin 13.6, plate let 246, blood count 7 Electronically Signed by Gabino Meade MD on at 0949 RPT #:[id number] END OF REPORT 2022-09-10 12:43:00-00:00 [facility] Endocrinology Consultation REPORT#:[id number] REPORT STATUS: Signed DATE:09/10/22 TIME: 1243 PATIENT: LACI HALL UNIT #: [id number] ROOM/BED: [place] [id number] : 95 AGE: 27 SEX: F ATTEND: Fercho Barnhart od, MD ADM AUTHOR: Kelton Cotto * ALL edits or amendments must be made on the [employer]/computer document * History of Present Illness Requesting Clinician: Mykel Fontana NP Reason for consult: Hypocalcemia Chief complaint: Hypocalcemia HPI: 27-year-old female history o f hypoparathyroidism with chronic hypocalcemia, age , Sjogren's syndrome, Chiari malformation was se nt to ER from her analytics intern office for low calcium. Calcium there was 6.5. Patient reporting generalized weakness, muscle spasms. R eports that her baseline calcium is 7.5. Does take calcium supplements. R eports that she was diagnosed with hypoparathyroidism [facility] e the age of 12. Has not had a full endocrine work- up for approximately 10 years. Also reporting ch est pain. Described as "wormlike sensation "in her chest. Has t his pain all the time. Associated with shortness of breath. Consulted for hypocalcemia. Patient has significant history since the age of 4 with her hands and fingers locking. At the age o f 12 she was diagnosed with hypoparathyroidism, she states her left parathyr oid is missing. She's had multiple visits inpatient th rough the ED for hypocalcemia, as she would receive continous calcium drips and then discharge. Yessica ent was at her endocrinology appointment and was experiencing brain fog, cram ping, and chest pain, sent to the ER. Her calcium was found to be 6.7, ionized calcium 0.86, PTH is 7.8. Vitamin D-25 is 35. She takes calcium carbonate and calcitrio l at home. Denies history of diabetes. TSH 2.15 History - Adult longitudinal Additional medical history: Hypoparathyroidism Alcohol use: Denies EtOH use Drug use: Denies recreational drugs Smoking status for patients 13 years old or olde r: Current every day smoker Date last smoked: 09/08/22 Packs per day: 0.5 Years smoked: 12 Pack years: 6.0 Allergies: Coded Allergies: haloperidol (From HALDOL) (Mild, MASTOIDITIS ) vancomycin (Mild, MASTOIDITIS 09/04/20) Review of Systems Constitutional: Denies: fever. Skin: rash. Eyes: Denies: visual loss/blurred. ENT: Denies: nasal congestion. Respiratory: Denies: SOB. Cardiovascular: chest pain. GI: Denies: nausea, vomiting. : Denies: dysuria. Musculoskeletal: extremity pain, joint pain, myalgias. Endocrine: weight gain. Denies: cold in tolerance, heat intolerance, polydipsia, polyphagia , polyuria, weight loss, other. Neuro: Denies: confusion, dizziness. Objective VS/I O: Last Documented: Result Date Time Pulse Ox 89 09/10 802 B/P 108/71 09/10 802 B/P Mean 82.9 09/10 802 O2 Delivery Room air 09/10 802 Temp 97.5 09/10 802 Pulse 79 09/10 802 Resp 14 09/10 802 24 hour I O ending at 0700: 09/10 0700 09/09 1900 Intake Total Output Total Balance Patient 95.455 kg Weight Weight Estimated Measurement Method PATIENT WEIGHT: Weight (lb): Weight (oz): Weight (kg): 95.455 General appearance: alert, awake, oriented Head/Eyes: atraumatic, normocephalic ENT: normal ear left, normal ear right, normal n ose Neck: supple Cardiovascular: regular rate rhythm Respiratory: no distress Abdomen: soft Genitourinary: not indicated Extremities: warm Musculoskeletal: normal inspection Neuro/VOCATIONAL PLACEMENT SPECIALIST: alert, oriented X 3, normal speech Skin: warm Results Findings/Data: Laboratory Tests: 09/10 Chemistry Sodium (134 - 147 mEq/L) 137 Potassium (3.4 - 5.0 mEq/L) 4.0 Chloride (100 - 108 mEq/L) 105 Carbon Dioxide (21 - 33 mEq/l) 27 Anion Gap (0 - 20) 9 BUN (7 - 18 mg/dL) 11 Creatinine (0.6 - 1.3 mg/dL) 0.6 Glomerular Filtr Rate (110 - 120) 126.1 H Glucose (70 - 110 mg/dL) 97 Calcium (8.0 - 10.5 mg/dL) 6.6 L Ionized Calcium Renee (1.09 - 1.30 MMOL/L) 0.86 L Phosphorus (2.5 - 4.9 MG/DL) 6.1 H Magnesium (1.80 - 2.40 mg/dL) 1.72 L Total Bilirubin (0.0 - 1.0 mg/dL) 0.50 AST (15 - 37 IUnit/L) 17 ALT (30 - 65 IUnit/L) 17 L Total Alk Phosphatase (20 - 125 IUnit/L) 65 Total Protein (6.4 - 8.2 g/dL) 7.8 Albumin (3.4 - 5.0 g/dL) 3.40 Vitamin D 25-Hydroxy (30 - 100 ng/mL) 35.7 PTH Intact (14.0 - 72.0 pg/mL) 7.8 L Hematology WBC (4.5 - 11.0 x10 3/uL) 6.1 RBC (3.54 - 5.02 x10 6/uL) 4.69 Hgb (11.0 - 15.0 g/dL) 13.4 Hct (33.0 - 45.0 %) 40.7 MCV (81.0 - 99.0 fL) 86.8 MCH (27.0 - 33.0 pg) 28.6 MCHC (33.0 - 37.0 g/dL) 32.9 L RDW (11.5 - 14.5 %) 13.3 Plt Count (150 - 400 x10 3/uL) 260 MPV (7.0 - 9.0 fL) 10.7 H Neut % (Auto) (56.0 - 77.0 %) 55.9 L Lymph % (Auto) (14.0 - 32.0 %) 31.9 Crowley % (Auto) (4.8 - 9.0 %) 8.2 Eos % (Auto) (0.3 - 3.7 %) 3.4 Baso % (Auto) (0.0 - 2.0 %) 0.3 Neut # (Auto) (2.0 - 7.6 x10 3/uL) 3.40 Lymph # (Auto) (1.0 - 3.8 x10 3/uL) 1.94 Crowley # (Auto) (0.1 - 0.8 x10 3/uL) 0.50 Eos # (Auto) (0.0 - 0.2 x10 3/uL) 0.21 H Baso # (Auto) (0.0 - 0.2 x10 3/uL) 0.02 Abs Immat Gran (auto) (0.00 - 0.03 x10 3/uL) 0. 02 Add Manual Diff NO Immature Gran % (0.0 - 2.0 %) 0.3 Nucleated RBC % (0 - 0 %) 0.0 Nucleated RBCs # (Man) (0.0 - 0.1 x10 3/uL) 0.0 0 /09/09 1555 1511 1511 1511 Chemistry Sodium (134 - 147 mEq/L) 139 Potassium (3.4 - 5.0 mEq/L) 3.7 Chloride (100 - 108 mEq/L) 103 Carbon Dioxide (21 - 33 mEq/l) 28 Anion Gap (0 - 20) 12 BUN (7 - 18 mg/dL) 11 Creatinine (0.6 - 1.3 mg/dL) 0.7 Glomerular Filtr Rate (110 - 120) 121.5 H Glucose (70 - 110 mg/dL) 90 Calcium (8.0 - 10.5 mg/dL) 6.7 L Phosphorus (2.5 - 4.9 MG/DL) 4.8 Magnesium (1.80 - 2.40 mg/dL) 1.62 L Total Bilirubin (0.0 - 1.0 mg/dL) 0.30 Direct Bilirubin (0.0 - 0.30 MG/DL) 0.10 AST (15 - 37 IUnit/L) 18 ALT (30 - 65 IUnit/L) 20 L Total Alk Phosphatase (20 - 125 IUnit/L) 73 Troponin I High Sens (0 - 34 ng/L) < 3 C-Reactive Protein (<10.0 mg/L) 12.0 H B-Natriuretic Peptide (0 - 100 PG/ML) 3.0 Total Protein (6.4 - 8.2 g/dL) 8.2 Albumin (3.4 - 5.0 g/dL) 3.60 TSH (0.42 - 5.47 IU/mL) 2.15 Hematology WBC (4.5 - 11.0 x10 3/uL) 7.8 RBC (3.54 - 5.02 x10 6/uL) 4.86 Hgb (11.0 - 15.0 g/dL) 14.1 Hct (33.0 - 45.0 %) 41.2 MCV (81.0 - 99.0 fL) 84.8 MCH (27.0 - 33.0 pg) 29.0 MCHC (33.0 - 37.0 g/dL) 34.2 RDW (11.5 - 14.5 %) 13.1 Plt Count (150 - 400 x10 3/uL) 282 MPV (7.0 - 9.0 fL) 10.0 H Neut % (Auto) (56.0 - 77.0 %) 63.3 Lymph % (Auto) (14.0 - 32.0 %) 27.8 Crowley % (Auto) (4.8 - 9.0 %) 6.3 Eos % (Auto) (0.3 - 3.7 %) 1.8 Baso % (Auto) (0.0 - 2.0 %) 0.4 Neut # (Auto) (2.0 - 7.6 x10 3/uL) 4.94 Lymph # (Auto) (1.0 - 3.8 x10 3/uL) 2.17 Crowley # (Auto) (0.1 - 0.8 x10 3/uL) 0.49 Eos # (Auto) (0.0 - 0.2 x10 3/uL) 0.14 Baso # (Auto) (0.0 - 0.2 x10 3/uL) 0.03 Abs Immat Gran (auto) (0.00 - 0.03 x10 3/uL) 0 .03 Add Manual Diff NO Immature Gran % (0.0 - 2.0 %) 0.4 Nucleated RBC % (0 - 0 %) 0.0 Nucleated RBCs # (Man) (0.0 - 0.1 x10 3/uL) 0.0 0 Urines Urine HCG, Qual (NEGATIVE) NEGATIVE Diagnosis, Assessment Plan Free Text A P: 1.Hypocalcemia hx of hypoparathyroidism calcium carbonate and Rocaltrol optimized by nep hrology 24-hour urine -pending US thyroid pending genetic testing outpatient DC Plan:calcium carbonate, Rocaltrol, and Forteo (sent to her pharmacy outpatient), follow at next available appointmen t. 2.Hypomagnesemia on mag-ox TID 3.History of Sjogren's 4.History of Chiari malformation Thank you Mykel Fontana NP for the kind consult. at 1337 Electronically Signed by Yadiel Manjarrez MD on 0 09/13/22 at 1248 RPT #:[id number] END OF REPORT 2022-09-10 07:56:00-00:00 [facility] Consultation Note REPORT#:[id number] REPORT STATUS: Signed DATE:09/10/22 TIME: 755 PATIENT: LACI HALL UNIT #: [id number] ROOM/BED: [address]147-1 : 95 AGE: 27 SEX: F ATTEND: Fercho Barnhart od, MD ADM AUTHOR: Gabino Meade MD * ALL edits or amendments must be made on the [employer]/computer document * History of Present Illness Requesting clinician: Nayan Barnhart Reason for consult: Hypocalcemia Chief complaint: Generalized weakness/muscle spasm HPI: Patient seen and evaluated, discussed with care team, 27-year-old female with history of hypoparathyroidism and chroni c hypocalcemia, Sjogren's syndrome and Chiari malformation who was sent to the emergency room from her analytics intern office for low calcium of 6.5. Patient complaine d of generalized weakness and muscle spasm. Patient is on calcium supplement a nd her calcium usually runs around 7.5. Reportedly her hypoparathyroidism wa s diagnosed at age 12. Associated symptoms included chest pain and shor tness of breath. Laboratory this morning showed sodium 137, potassium 4, CO2 27, BUN 11, creatinine 0.6, calcium 6.6, ionized calcium yesterday 0.86, PTH 87, 25-hydroxy vitamin D level is normal. Renal consult was requested for evaluation management of her chronic hypocalcemia. History - Adult longitudinal Additional medical history: Hypoparathyroidism Alcohol use: Denies EtOH use Drug use: Denies recreational drugs Smoking status for patients 13 years old or olde r: Current every day smoker Date last smoked: 09/08/22 Packs per day: 0.5 Years smoked: 12 Pack years: 6.0 Medications: Home Medications: Medication Dose/Rte/Freq Days Qty Entered Last Max Daily Dose Reviewed HYDROXYCHLOROQUINE 200 MG PO DAILY 09/09/22 SULFATE 2349 (PLAQUENIL) Strength: 200 MG TAB Nicotine 1 PATCH TOPICAL 09/09/22 (NICODERM CQ 7 MG) Q24H 2350 Strength: 7 MG/24 HOUR PATCH ASPIRIN 81 MG PO DAILY 09/10/22 09/10/22 Strength: 81 MG TAB.CHEW 0609 0616 CLOPIDOGREL (PLAVIX) 200 MG PO BID 09/10/2207/31 Strength: 300 MG TAB 0610 0616 PILOCARPINE (SALAGEN) 5 MG PO TID 09/10/2207/31 Strength: 5 MG TAB 0610 0615 NAPROXEN SODIUM ER 375 MG PO BID 09/10/22 05/07/31 (NAPRELAN) 0612 0616 Strength: 375 MG TAB.SA CALCITRIOL (ROCALTROL) 0.5 MCG PO DAILY 3 09/10/22 Strength: 0.5 MCG CAP 612 615 CALCIUM CARBONATE 500 MG PO 5XDAY 09/10/22 0507/31 (CALCIUM CARBONATE 500 15 0616 MG/5 ML) Strength: 500 MG/5ML ORAL.SUSP Current Hospital Medications: Anti-Infective Agents Sig/Yaniv Start time Last Medication Dose Route Stop Time Status Admin Hydroxychloroquine 200 MG DAILY 09/10 899 AC Sulfate PO 10/10 0859 (PlaqueniL) Autonomic Drugs Sig/Yaniv Start time Last Medication Dose Route Stop Time Status Admin Pilocarpine HCl 5 MG TID 09/10 899 AC (SALAGEN) PO 10/10 0859 Nicotine 7 MG Q24H 09/11 799 CKD (NICODERM) TRANSDERM 10/10 0759 Cardiovascular Drugs Sig/Yaniv Start time Last Medication Dose Route Stop Time Status Admin Hydralazine HCl 10 MG Q6H PRN PRN 09/09 181 AC (APRESOLINE) IV 10/09 181 Central Nervous System Agents Sig/Yaniv Start time Last Medication Dose Route Stop Time Status Admin Aspirin 81 MG DAILY 09/10 899 AC (ASPIRIN) PO 10/10 0859 Hydrocodone Bitart/ 1 TAB ONCE ONE 09/09 1830 D C 09/09 Acetaminophen PO 09/09 183 2000 (NORCO 5/325) Acetaminophen 650 MG Q4H PRN PRN 09/09 1815 AC (TYLENOL) PO 10/09 1814 Electrolytic, Caloric, And Andie Sig/Yaniv Start time Last Medication Dose Route Stop Time Status Admin Calcium Carbonate 500 MG 5XDAY 09/10 899 AC (CALCIUM CARBONATE) PO 10/10 0859 Gastrointestinal Drugs Sig/Yaniv Start time Last Medication Dose Route Stop Time Status Admin Magnesium Oxide 400 MG ONCE ONE 09/10 0745 DC (MAG-OX 400) PO 09/10 0746 Docusate Sodium 100 MG BID 09/09 2100 AC (COLACE) PO 10/09 205 Magnesium Oxide 400 MG ONCE 09/09 181 DC (MAG-OX 400) PO 09/09 1930 Ondansetron HCl 4 MG Q4H PRN PRN 09/09 1815 AC (ZOFRAN) IV 10/09 181 Vitamins Sig/Yaniv Start time Last Medication Dose Route Stop Time Status Admin Calcitriol 0.5 MCG DAILY 05/03 0900 AC (RocaltroL) PO 10/10 0859 Allergies: Coded Allergies: haloperidol (From HALDOL) (Mild, MASTOIDITIS ) vancomycin (Mild, MASTOIDITIS 09/04/20) Review of Systems Constitutional: Reports: generalized weakness. Denies: chills, f ever. Skin: Denies: abrasion, bruising. Allergy/Immun: Denies: hives, itching. Eyes: Denies: redness, discharge. ENT: Denies: ear drainage, ear ringing. Respiratory: Denies: hemoptysis, SOB. Cardiovascular: Denies: chest pain, palpitations. GI: Denies: abdominal pain, nausea, vomiting. : Denies: dysuria, flank pain. Musculoskeletal: Reports: extremity pain. Heme: Denies: bleeding, bruising. Endocrine: Denies: cold intolerance, heat intolerance. Neuro: Denies: change in LOC, seizure. Psych: Denies: agitation, anxiety. Objective General VS/I O: Vital Signs: Date Time Temp Pulse Resp B/P B/P Pulse O2 O2 F low FiO2 Mean Ox Delivery Rate 09/10 010 36.7 91 14 106/69 81.1 94 Room air 09/09 2002 36.9 86 14 114/80 91.4 97 Room air 09/09 1434 37.0 100 27 139/85 103 96 Room air 24 hour I O ending at 0700: 09/10 0700 09/09 1900 Intake Total Output Total Balance Patient 95.455 kg Weight Weight Estimated Measurement Method PATIENT WEIGHT: Weight (lb): Weight (oz): Weight (kg): 95.455 Medications: Active Meds + DC'd Last 24 Hrs Aspirin (ASPIRIN) 81 MG DAILY PO Calcitriol (RocaltroL) 0.5 MCG DAILY PO Calcium Carbonate (CALCIUM CARBONATE) 500 MG 5XD AY PO Hydroxychloroquine Sulfate (PlaqueniL) 200 MG DA GERI PO Pilocarpine HCl (SALAGEN) 5 MG TID PO Nicotine (NICODERM) 7 MG Q24H TRANSDERM (CKD) Magnesium Oxide (MAG-OX 400) 400 MG ONCE ONE PO (DC) Docusate Sodium (COLACE) 100 MG BID PO Hydrocodone Bitart/Acetaminophen (NORCO 5/325) 1 TAB ONCE ONE PO (DC) Acetaminophen (TYLENOL) 650 MG Q4H PRN PRN PO Hydralazine HCl (APRESOLINE) 10 MG Q6H PRN PRN I V Magnesium Oxide (MAG-OX 400) 400 MG ONCE PO (DC) Ondansetron HCl (ZOFRAN) 4 MG Q4H PRN PRN IV Physical Exam General appearance: alert, no acute distress Head/eyes: atraumatic, normocephalic ENT: normal nose Neck: non-tender, supple/no meningismus Cardiovascular: normal heart sounds, no rub Respiratory: aerating well, symmetric expansion Abdomen: non-tender, soft Genitourinary: no flank pain Extremities: non-tender, no edema Musculoskeletal: no CVA tenderness, no tendernes s Neuro/VOCATIONAL PLACEMENT SPECIALIST: alert, normal speech Skin: dry, intact Results Findings/Data: Laboratory Tests 09/10 1511 Chemistry Sodium (134 - 147 mEq/L) 137 Potassium (3.4 - 5.0 mEq/L) 4.0 Chloride (100 - 108 mEq/L) 105 Carbon Dioxide (21 - 33 mEq/l) 27 Anion Gap (0 - 20) 9 BUN (7 - 18 mg/dL) 11 Creatinine (0.6 - 1.3 mg/dL) 0.6 Glomerular Filtr Rate (110 - 120) 126.1 H Glucose (70 - 110 mg/dL) 97 Calcium (8.0 - 10.5 mg/dL) 6.6 L Ionized Calcium Renee (1.09 - 1.30 0.86 L MMOL/L) Phosphorus (2.5 - 4.9 MG/DL) 6.1 H Magnesium (1.80 - 2.40 mg/dL) 1.72 L Total Bilirubin (0.0 - 1.0 mg/dL) 0.50 AST (15 - 37 IUnit/L) 17 ALT (30 - 65 IUnit/L) 17 L Total Alk Phosphatase (20 - 125 65 IUnit/L) C-Reactive Protein (<10.0 mg/L) 12.0 H Total Protein (6.4 - 8.2 g/dL) 7.8 Albumin (3.4 - 5.0 g/dL) 3.40 Vitamin D 25-Hydroxy (30 - 100 ng/mL) 35.7 PTH Intact (14.0 - 72.0 pg/mL) 7.8 L 09/09 09/09 1511 1511 Chemistry Sodium (134 - 147 mEq/L) 139 Potassium (3.4 - 5.0 mEq/L) 3.7 Chloride (100 - 108 mEq/L) 103 Carbon Dioxide (21 - 33 mEq/l) 28 Anion Gap (0 - 20) 12 BUN (7 - 18 mg/dL) 11 Creatinine (0.6 - 1.3 mg/dL) 0.7 Glomerular Filtr Rate (110 - 120) 121.5 H Glucose (70 - 110 mg/dL) 90 Calcium (8.0 - 10.5 mg/dL) 6.7 L Phosphorus (2.5 - 4.9 MG/DL) 4.8 Magnesium (1.80 - 2.40 mg/dL) 1.62 L Total Bilirubin (0.0 - 1.0 mg/dL) 0.30 Direct Bilirubin (0.0 - 0.30 MG/DL) 0.10 AST (15 - 37 IUnit/L) 18 ALT (30 - 65 IUnit/L) 20 L Total Alk Phosphatase (20 - 125 IUnit/L) 73 Troponin I High Sens (0 - 34 ng/L) < 3 B-Natriuretic Peptide (0 - 100 PG/ML) 3.0 Total Protein (6.4 - 8.2 g/dL) 8.2 Albumin (3.4 - 5.0 g/dL) 3.60 TSH (0.42 - 5.47 IU/mL) 2.15 Laboratory Tests 09/10 09/09 0600 1511 Hematology WBC (4.5 - 11.0 x10 3/uL) 6.1 7.8 RBC (3.54 - 5.02 x10 6/uL) 4.69 4.86 Hgb (11.0 - 15.0 g/dL) 13.4 14.1 Hct (33.0 - 45.0 %) 40.7 41.2 MCV (81.0 - 99.0 fL) 86.8 84.8 MCH (27.0 - 33.0 pg) 28.6 29.0 MCHC (33.0 - 37.0 g/dL) 32.9 L 34.2 RDW (11.5 - 14.5 %) 13.3 13.1 Plt Count (150 - 400 x10 3/uL) 260 282 MPV (7.0 - 9.0 fL) 10.7 H 10.0 H Neut % (Auto) (56.0 - 77.0 %) 55.9 L 63.3 Lymph % (Auto) (14.0 - 32.0 %) 31.9 27.8 Crowley % (Auto) (4.8 - 9.0 %) 8.2 6.3 Eos % (Auto) (0.3 - 3.7 %) 3.4 1.8 Baso % (Auto) (0.0 - 2.0 %) 0.3 0.4 Neut # (Auto) (2.0 - 7.6 x10 3/uL) 3.40 4.94 Lymph # (Auto) (1.0 - 3.8 x10 3/uL) 1.94 2.17 Crowley # (Auto) (0.1 - 0.8 x10 3/uL) 0.50 0.49 Eos # (Auto) (0.0 - 0.2 x10 3/uL) 0.21 H 0.14 Baso # (Auto) (0.0 - 0.2 x10 3/uL) 0.02 0.03 Abs Immat Gran (auto) (0.00 - 0.03 x10 3/uL) 0. 02 0.03 Add Manual Diff NO NO Immature Gran % (0.0 - 2.0 %) 0.3 0.4 Nucleated RBC % (0 - 0 %) 0.0 0.0 Nucleated RBCs # (Man) (0.0 - 0.1 x10 3/uL) 0.0 0 0.00 Laboratory Tests 09/09 1555 Urines Urine HCG, Qual (NEGATIVE) NEGATIVE Diagnosis, Assessment Plan Free Text DxA P Notes Free text DxA P notes: Patient seen and evaluated, discussed with care team, images and laboratories reviewed. History of Sjogren's. 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 We will try to raise serum calcium enough to resolve her symptoms to avoid hypercalciuria. May require genetic testing as an outpatient and she may benefit from synthetic PTH. We will increase Rocaltrol 0.5 mcg p.o. twi ce daily, change calcium carbonate to 1250 p.o. 3 times daily, will add c hlorthalidone to help reduce calcium excretion after 24-hour urine collection is completed Hypophosphatemia: Due to hypoparathyroidism Hypomagnesemia Electronically Signed by Gabino Meade MD on at 0943 RPT #:[id number] END OF REPORT 2022-09-10 07:27:00-00:00 [facility] Physical REPORT#:[id number] REPORT STATUS: Signed DATE:09/10/22 TIME: 726 PATIENT: LACI HALL UNIT #: [id number] ROOM/BED: [place] [id number] : 95 AGE: 27 SEX: F ATTEND: Fercho Barnhart od, MD ADM AUTHOR: Mykel Fontana ADMINISTRATIVE PROGRAM SPECIALIST * ALL edits or amendments must be made on the [employer]/computer document * History of Present Illness HPI Chief complaint: Low CA PCP: PCP: Yaya Chisholm MD HPI: 27-year-old female history o f hypoparathyroidism with chronic hypocalcemia, age , Sjogren's syndrome, Chiari malformation was se nt to ER from her analytics intern office for low calcium. Calcium there was 6.5. Patient reporting generalized weakness, muscle spasms. R eports that her baseline calcium is 7.5. Does take calcium supplements. R eports that she was diagnosed with hypoparathyroidism sin e the age of 12. Has not had a full endocrine work- up for approximately 10 years. Also reporting ch est pain. Described as "wormlike sensation "in her chest. Has t his pain all the time. Associated with shortness of breath. History Alcohol use: Denies EtOH use Drug use: Denies recreational drugs Smoking status for patients 13 years old or olde r: Current every day smoker Date last smoked: 09/08/22 Packs per day: 0.5 Years smoked: 12 Pack years: 6.0 Medication/Allergy-Vaccine Hx Medications: Home Medications: Medication Dose/Rte/Freq Days Qty Entered Last Max Daily Dose Reviewed HYDROXYCHLOROQUINE 200 MG PO DAILY 09/09/22 SULFATE 2349 (PLAQUENIL) Strength: 200 MG TAB Nicotine 1 PATCH TOPICAL 09/09/22 (NICODERM CQ 7 MG) Q24H 2350 Strength: 7 MG/24 HOUR PATCH ASPIRIN 81 MG PO DAILY 09/10/22 09/10/22 Strength: 81 MG TAB.CHEW 0609 0616 CLOPIDOGREL (PLAVIX) 200 MG PO BID 09/10/2207/31 Strength: 300 MG TAB 0610 0616 PILOCARPINE (SALAGEN) 5 MG PO TID 09/10/2207/31 Strength: 5 MG TAB 0610 0615 NAPROXEN SODIUM ER 375 MG PO BID 09/10/2209/10 (NAPRELAN) 0612 0616 Strength: 375 MG TAB.SA CALCITRIOL (ROCALTROL) 0.5 MCG PO DAILY 3 09/10/22 Strength: 0.5 MCG CAP 0613 0616 CALCIUM CARBONATE 500 MG PO 5XDAY 09/10/2207/31 (CALCIUM CARBONATE 500 0615 0616 MG/5 ML) Strength: 500 MG/5ML ORAL.SUSP Current Hospital Medications: Cardiovascular Drugs Sig/Yaniv Start time Last Medication Dose Route Stop Time Status Admin Hydralazine HCl 10 MG Q6H PRN PRN 09/09 1815 AC (APRESOLINE) IV 10/09 181 Central Nervous System Agents Sig/Yaniv Start time Last Medication Dose Route Stop Time Status Admin Aspirin 81 MG DAILY 09/10 0900 AC (ASPIRIN) PO 10/10 0859 Hydrocodone Bitart/ 1 TAB ONCE ONE 09/09 1830 D C 09/09 Acetaminophen PO 09/09 183 2000 (NORCO 5/325) Acetaminophen 650 MG Q4H PRN PRN 09/09 1815 AC (TYLENOL) PO 10/09 181 Gastrointestinal Drugs Sig/Yaniv Start time Last Medication Dose Route Stop Time Status Admin Docusate Sodium 100 MG BID 09/09 2100 AC (COLACE) PO 10/09 2058 Magnesium Oxide 400 MG ONCE 09/09 181 DC (MAG-OX 400) PO 09/09 1929 Ondansetron HCl 4 MG Q4H PRN PRN 09/09 1814 AC (ZOFRAN) IV 10/09 1813 Allergies: Coded Allergies: haloperidol (From HALDOL) (Mild, MASTOIDITIS ) vancomycin (Mild, MASTOIDITIS 09/04/20) Review of Systems Constitutional: fatigue, generalized weakness. Allergy/Immun: Denies: anaphylaxis, itching, rhinorrhea, sneezi ng. Respiratory: Denies: COOLEY (dyspnea on exertion), non p roductive cough, pneumonia, productive cough (sputum), SOB. Cardiovascular: Denies: chest pain, edema, palpitations, parox n octurnal dyspnea. GI: Denies: abdominal pain, cons tipation, diarrhea, GERD, hematemesis, hiatal hernia , melena. : Denies: dysuria, hematuria, pelvic pain, urgency . Heme: Denies: bleeding, bruising. Neuro: Denies: bowel dysfunction, focal weakness, gait problem, numbness, spinning sensation, unable to speak. Objective General VS/I O: Vital Signs: Date Time Temp Pulse Resp B/P B/P Pulse O2 O2 F low FiO2 Mean Ox Delivery Rate 09/10 0109 36.7 91 14 106/69 81.1 94 Room air 09/09 2002 36.9 86 14 114/80 91.4 97 Room air 09/09 1434 37.0 100 27 139/85 103 96 Room air 24 hour I O ending at 0700: 09/10 0700 09/09 1900 Intake Total Output Total Balance Patient 95.455 kg Weight Weight Estimated Measurement Method PATIENT WEIGHT: Weight (lb): Weight (oz): Weight (kg): 95.455 Medications: Active Meds + DC'd Last 24 Hrs Aspirin (ASPIRIN) 81 MG DAILY PO Docusate Sodium (COLACE) 100 MG BID PO Hydrocodone Bitart/Acetaminophen (NORCO 5/325) 1 TAB ONCE ONE PO (DC) Acetaminophen (TYLENOL) 650 MG Q4H PRN PRN PO Hydralazine HCl (APRESOLINE) 10 MG Q6H PRN PRN I V Magnesium Oxide (MAG-OX 400) 400 MG ONCE PO (DC) Ondansetron HCl (ZOFRAN) 4 MG Q4H PRN PRN IV Physical Exam General appearance: alert, awake, oriented Head/Eyes: atraumatic, normocephalic, PERRLA Neck: supple/no meningismus, no bruit/NL carotid s, no JVD Cardiovascular: normal capillary refill, normal heart sounds, regular rate rhythm Respiratory: aerating well, symmetric expansion, no distress Abdomen: non-tender, normal bowel sounds, soft Genitourinary: no bladder distention, no flank p ain Extremities: no calf tenderness, no clubbing, no cyanosis Musculoskeletal: no muscle spasm Neuro/VOCATIONAL PLACEMENT SPECIALIST: alert, oriented X 3 Results Findings/Data: Laboratory Tests 09/09 151 1511 Chemistry Ionized Calcium Renee (1.09 - 1.30 MMOL/L) 0.86 L C-Reactive Protein (<10.0 mg/L) 12.0 H B-Natriuretic Peptide (0 - 100 PG/ML) 3.0 Vitamin D 25-Hydroxy (30 - 100 ng/mL) 35.7 PTH Intact (14.0 - 72.0 pg/mL) 7.8 L 09/09 1510 Chemistry Sodium (134 - 147 mEq/L) 139 Potassium (3.4 - 5.0 mEq/L) 3.7 Chloride (100 - 108 mEq/L) 103 Carbon Dioxide (21 - 33 mEq/l) 28 Anion Gap (0 - 20) 12 BUN (7 - 18 mg/dL) 11 Creatinine (0.6 - 1.3 mg/dL) 0.7 Glomerular Filtr Rate (110 - 120) 121.5 H Glucose (70 - 110 mg/dL) 90 Calcium (8.0 - 10.5 mg/dL) 6.7 L Phosphorus (2.5 - 4.9 MG/DL) 4.8 Magnesium (1.80 - 2.40 mg/dL) 1.62 L Total Bilirubin (0.0 - 1.0 mg/dL) 0.30 Direct Bilirubin (0.0 - 0.30 MG/DL) 0.10 AST (15 - 37 IUnit/L) 18 ALT (30 - 65 IUnit/L) 20 L Total Alk Phosphatase (20 - 125 IUnit/L) 73 Troponin I High Sens (0 - 34 ng/L) < 3 Total Protein (6.4 - 8.2 g/dL) 8.2 Albumin (3.4 - 5.0 g/dL) 3.60 TSH (0.42 - 5.47 IU/mL) 2.15 Laboratory Tests 09/09 1511 Hematology WBC (4.5 - 11.0 x10 3/uL) 7.8 RBC (3.54 - 5.02 x10 6/uL) 4.86 Hgb (11.0 - 15.0 g/dL) 14.1 Hct (33.0 - 45.0 %) 41.2 MCV (81.0 - 99.0 fL) 84.8 MCH (27.0 - 33.0 pg) 29.0 MCHC (33.0 - 37.0 g/dL) 34.2 RDW (11.5 - 14.5 %) 13.1 Plt Count (150 - 400 x10 3/uL) 282 MPV (7.0 - 9.0 fL) 10.0 H Neut % (Auto) (56.0 - 77.0 %) 63.3 Lymph % (Auto) (14.0 - 32.0 %) 27.8 Crowley % (Auto) (4.8 - 9.0 %) 6.3 Eos % (Auto) (0.3 - 3.7 %) 1.8 Baso % (Auto) (0.0 - 2.0 %) 0.4 Neut # (Auto) (2.0 - 7.6 x10 3/uL) 4.94 Lymph # (Auto) (1.0 - 3.8 x10 3/uL) 2.17 Crowley # (Auto) (0.1 - 0.8 x10 3/uL) 0.49 Eos # (Auto) (0.0 - 0.2 x10 3/uL) 0.14 Baso # (Auto) (0.0 - 0.2 x10 3/uL) 0.03 Abs Immat Gran (auto) (0.00 - 0.03 x10 3/uL) 0. 03 Add Manual Diff NO Immature Gran % (0.0 - 2.0 %) 0.4 Nucleated RBC % (0 - 0 %) 0.0 Nucleated RBCs # (Man) (0.0 - 0.1 x10 3/uL) 0.0 0 Laboratory Tests 09/09 1555 Urines Urine HCG, Qual (NEGATIVE) NEGATIVE Results: labs reviewed, vital signs reviewed, vi emily signs stable, current med profile rev'd Treatment Prophylaxis Treatment Prophylaxis Oxygen: room air Diagnosis, Assessment Plan Plan discussed with: patient, admitting physicia n, consultants, nurse Code Status/Resusc. Discussion Code status: full code Free Text DxA P Notes Free Text DxA P Notes: Assessment and Plan: - Hypocalcemia. - Chest pain. - HX of hypoparathyroidism with chronic hypocalcemia, age, Sjogren's syndrome, Chiari malformation. Plan: Floor. Endocrine for Low Ca and Low PTH. Ionized Ca is low. Continue Monitor CA. Pain meds. Antiemetics. Follow labs and repalce as needed. Continue Home meds. Monitor. Electronically Signed by Mykel Fontana NP on 07/31 at 0738 Electronically Signed by Nayan Barnhart MD on 0 09/20/22 at 1212 RPT #:[id number] END OF REPORT 2022-09-09 18:09:00-00:[address] [facility] ([facility]) Clinical Note REPORT#:[id number] REPORT STATUS: Signed DATE:09/09/22 TIME: 180 PATIENT: LACI HALL UNIT #: [id number] ROOM/BED: [facility]99-2 : 95 AGE: 27 SEX: F ATTEND: Fercho Barnhart od, MD ADM AUTHOR: Mykel Fontana NP * ALL edits or amendments must be made on the el ectronic/computer document * Clinical Note Note: H P done Electronically Signed by Mykel Fontana NP on 07/31 at 0738 Electronically Signed by Nayan Barnhart MD on 0 09/20/22 at 1212 RPT #:[id number] END OF REPORT 2022-09-09 17:47:00-00:[address] [facility] ([facility]) EMERGENCY PROVIDER REPORT REPORT#:[id number] REPORT STATUS: Signed DATE:09/09/22 TIME: 1746 PATIENT: LACI HALL UNIT #: [id number] ROOM/BED: [facility]7-1 AGE: 27 SEX: F PCP PHYS: Yaya Chisholm MD SERVICE AUTHOR: Sunil Mata MD * ALL edits or amendments must be made on the [employer] document * HPI-General Illness Free Text HPI Notes Free Text HPI Notes 27-year-old female history o f hypoparathyroidism with chronic hypocalcemia, age , Sjogren's syndrome, Chiari malformation,. Pres ents from her analytics intern office for low calcium. Calcium there was 6.5. P atient reporting generalized weakness, muscle spasms. Reports that her baseli ne calcium is 7.5. Does take calcium supplements. Reports that she was diagno sed with hypoparathyroidism since the age of 12. Has not had a full endocrine work-up for approximately 10 years. Also reporting chest pain. Described as " wormlike sensation "in her chest. Has this pain all the time. Associated wi th shortness of breath. General Confirmed Patient Yes Initial Greet Date/Time 09/09/22 1423 Presentation Chief Complaint __ (hypocalcemia), Chest pain Review of Systems ROS Statements All systems rev neg except as marked. Free Text ROS Notes Free Text ROS Notes -Constitutional: No fever, chills, fatigue -EENT: No runny nose, sore throat -Cardiovascular: Reporting chest pain, palpitati ons,; denies syncope -Respiratory: Reporting shortness of breath; den ies cough, wheezing -GI: No abdominal pain, nausea, vomiting, diarrh ea -: No pain or burning with urination, no blood in the urine -Musculoskeletal: No joint pain, muscle pain, ba ck pain -Skin: No rash, abrasion -Neurologic: No change in LO C, confusion, numbness or tingling; reporting muscle spasms -Psychiatric: No suicidal or homicidal ideations Past Medical History - Adult Stated Complaint SENT IN BY /ROMY 6.4 Allergies Coded Allergies: haloperidol (From HALDOL) (Mild, MASTOIDITIS ) vancomycin (Mild, MASTOIDITIS 09/04/20) Home Medications Reported Medications HYDROXYCHLOROQUINE SULFATE (PLAQUENIL) 200 MG PO DAILY Nicotine (NICODERM CQ 7 MG) 1 PATCH TOPICAL Q24H ASPIRIN 81 MG PO DAILY CLOPIDOGREL (PLAVIX) 200 MG PO BID PILOCARPINE (SALAGEN) 5 MG PO TID NAPROXEN SODIUM ER (NAPRELAN) 375 MG PO BID CALCITRIOL (ROCALTROL) 0.5 MCG PO DAILY CALCIUM CARBONATE (CALCIUM CARBONATE 500 MG/5 ML ) 500 MG PO 5XDAY Discontinued Reported Medications PILOCARPINE (SALAGEN) 5 MG PO TID CALCIUM CARBONATE ([id number]) 500 MG PO DAILY CHOLECALCIFEROL (VITAMIN D3) (VITAMIN D3) 1,000 UNITS PO DAILY CALCITRIOL (ROCALTROL) 0.25 MCG PO DAILY buPROPion HCL SR (WELLBUTRIN SR) 150 MG PO DAILY IBUPROFEN (MOTRIN) 800 MG PO TID PRN PRN PAIN METHOCARBAMOL (ROBAXIN) 750 MG PO Q4H PRN PRN PA IN POTASSIUM GLUCONATE (POTASSIUM) 99 MG PO DAILY ASCORBIC ACID (VITAMIN C) 500 MG PO DAILY ZINC ACETATE (GALZIN) 50 MG PO DAILY Calculated Suicide Risk (nurs) No risk Smoking status for patients 13 years old or olde r: Unknown,if ever smoked Physical Exam Vital Signs Vital Signs First Documented: Result Date Time Pulse Ox 96 05 1434 B/P 139/85 05/ 1434 B/P Mean 103 / 1434 O2 Delivery Room air / 1434 Temp 37.0 05/ 1434 Pulse 100 05/ 1434 Resp 27 09/09 1434 Last Documented: Result Date Time Pulse Ox 96 05/ 1434 B/P 139/85 05/ 1434 B/P Mean 103 / 1434 O2 Delivery Room air / 1434 Temp 37.0 / 1434 Pulse 100 05/ 1434 Resp 27 09/09 1434 Review of Vital Signs Reviewed Free Text PE Notes Free Text PE Notes Gen: Well appearing, well hydrated, cooperative Head: Normocephalic, atraumatic Eyes: EOMI, normal conjunctiva ENT: MMM, airway patent Neck: supple, no LAD Lungs: CTAB no R/R/W Heart: RRR, normal pulses Abd: S/NT/ND, normal BS, no rebound or guarding Ext: FROM BUE/LE, no deformity Neuro: A O x 3, CN II-XII gr ossly intact. Strength and sensation grossly intact Psych: Normal mood and affect. Interpretation Diagnostics Lab Results Interpretation Results Laboratory Tests 09/09/22 1511: [Embedded Image Not Available] Laboratory Tests: 09/09 09/09 09/09 09/09 1555 1511 1511 1511 Chemistry Sodium (134 - 147 mEq/L) 139 Potassium (3.4 - 5.0 mEq/L) 3.7 Chloride (100 - 108 mEq/L) 103 Carbon Dioxide (21 - 33 mEq/l) 28 Anion Gap (0 - 20) 12 BUN (7 - 18 mg/dL) 11 Creatinine (0.6 - 1.3 mg/dL) 0.7 Glomerular Filtr Rate (110 - 120) 121.5 H Glucose (70 - 110 mg/dL) 90 Calcium (8.0 - 10.5 mg/dL) 6.7 L Phosphorus (2.5 - 4.9 MG/DL) 4.8 Magnesium (1.80 - 2.40 mg/dL) 1.62 L Total Bilirubin (0.0 - 1.0 mg/dL) 0.30 Direct Bilirubin (0.0 - 0.30 MG/DL) 0.10 AST (15 - 37 IUnit/L) 18 ALT (30 - 65 IUnit/L) 20 L Total Alk Phosphatase (20 - 125 IUnit/L) 73 Troponin I High Sens (0 - 34 ng/L) < 3 C-Reactive Protein (<10.0 mg/L) 12.0 H B-Natriuretic Peptide (0 - 100 PG/ML) 3.0 Total Protein (6.4 - 8.2 g/dL) 8.2 Albumin (3.4 - 5.0 g/dL) 3.60 TSH (0.42 - 5.47 IU/mL) 2.15 Hematology WBC (4.5 - 11.0 x10 3/uL) 7.8 RBC (3.54 - 5.02 x10 6/uL) 4.86 Hgb (11.0 - 15.0 g/dL) 14.1 Hct (33.0 - 45.0 %) 41.2 MCV (81.0 - 99.0 fL) 84.8 MCH (27.0 - 33.0 pg) 29.0 MCHC (33.0 - 37.0 g/dL) 34.2 RDW (11.5 - 14.5 %) 13.1 Plt Count (150 - 400 x10 3/uL) 282 MPV (7.0 - 9.0 fL) 10.0 H Neut % (Auto) (56.0 - 77.0 %) 63.3 Lymph % (Auto) (14.0 - 32.0 %) 27.8 Crowley % (Auto) (4.8 - 9.0 %) 6.3 Eos % (Auto) (0.3 - 3.7 %) 1.8 Baso % (Auto) (0.0 - 2.0 %) 0.4 Neut # (Auto) (2.0 - 7.6 x10 3/uL) 4.94 Lymph # (Auto) (1.0 - 3.8 x10 3/uL) 2.17 Crowley # (Auto) (0.1 - 0.8 x10 3/uL) 0.49 Eos # (Auto) (0.0 - 0.2 x10 3/uL) 0.14 Baso # (Auto) (0.0 - 0.2 x10 3/uL) 0.03 Abs Immat Gran (auto) (0.00 - 0.03 x10 3/uL) 0. 03 Add Manual Diff NO Immature Gran % (0.0 - 2.0 %) 0.4 Nucleated RBC % (0 - 0 %) 0.0 Nucleated RBCs # (Man) (0.0 - 0.1 x10 3/uL) 0.0 0 Urines Urine HCG, Qual (NEGATIVE) NEGATIVE Lab Imaging Statement Laboratory radiographic studies reviewed and con sidered in the medical decision-making. ECG #1 Interpretation Text/Dict Note EKG at 1520 on 09/09/2022 Interpreted by ED physicianme Heart rate 97 bpm, regular sinus rhythm MD, QRS not prolonged QTc prolonged at 474 ms Normal axis Re-Evaluation MDM Free Text MDM Notes Free Text MDM Notes Patient with history of chronic hypoparathyroidi sm and hypocalcemia. Was told to come to the emergency dep artment for admission due to critically low calcium. Calcium here is 6.7. Low iCal as well (0.86). A lso mild hypomagnesemia. Patient does have mild QT prolongation on EKG. H owever no dysrhythmias. We will monitor patient on telemetry. Unless patien t suffers a dysrhythmia or cardiac event while in the e mergency department, will defer calcium repletion to specialist as patient has chronic hypocalcemia. Unclear cause for patient's chest pain at this t mandy. Troponin is negative. No STEMI or dysrhythmia on EKG. MDM-Complexity Differential Diagnosis Includes but not limited to primary hypoparathyr oidism, secondary hyperparathyroidism, hyperphosphatemia, ESRD, ma lnutrition. Severity/Chronicity Evaluation Acute causing systemic illness MDM-History/Test Information Independent Hx From/Why Independent historian External Notes Reviewed No prior external notes to review. Patient Discharge Departure Vital Signs/Condition Vital Signs First Documented: Result Date Time Pulse Ox 96 05/ 1434 B/P 139/85 05/02 1434 B/P Mean 103 05/02 1434 O2 Delivery Room air 05/ 1434 Temp 37.0 05/ 1434 Pulse 100 05/ 1434 Resp 27 05/ 1434 Last Documented: Result Date Time Pulse Ox 96 05/ 1434 B/P 139/85 05/02 1434 B/P Mean 103 05/02 1434 O2 Delivery Room air 05/ 1434 Temp 37.0 05/ 1434 Pulse 100 05/02 1434 Resp 27 05/ 1434 All vital signs available at the time of this en try have been reviewed. Condition Guarded Clinical Impression Clinical Impression Primary Impression: Hypocalcemia Secondary Impressions: Chest pain Disposition Decision Admit Admit Physician Name Nayan Barnhart MD Admit Physician Hospitalist Request Time 174 Request Date 09/09/22 )( Admission Accepts Yes )( Accepted Time 174 )( Accepted Date 09/09/22 Call Information will see patient Discharge/Care Plan Counseled Regarding Diagnosis, Need for admissio n Admit Note I have spoken with the patie nt and/or caregivers. I have explained the patient's condition, diagnoses and anisa atment plan based on the information available to me at this time. I have answered the patient's and/ or caregiver's questions and addressed any concerns. The patient and/or careg leonarda have as good an understanding of the patient 's diagnosis, condition and treatment plan as can be expected at this point. The patient has been stabilized within the capability of the emergency department. The patient wi ll be transported for further care and management or will be moved to an observation or inpatient service. I have communicated with the staff or medical p ractitioner taking over this patient's care. Electronically Signed by Sunil Mata MD on 3 at 1426 RPT #:[id number] END OF REPORT 2020-09-06 12:19:00-00:00 [facility] ([facility]) Op/Inv Procedure Note - Brief REPORT#:[id number] REPORT STATUS: Signed DATE:09/06/20 TIME: 1219 PATIENT: LACI HALL UNIT #: [id number] ROOM/BED: : 95 AGE: 25 SEX: F ATTEND: Rosalva Norris MD ADM AUTHOR: Rosalva Norris MD * ALL edits or amendments must be made on the [employer]/computer document * Op/Inv Proc Note - Brief TEXT Brief Op/Inv Procedure Note Note details: *PRE-PROCEDURE DIAGNOSIS: []Chronic tonsillitis Recurrent acute otitis media *POST-PROCEDURE DIAGNOSIS: Same[x] *PROCEDURE(S) PERFORMED: []Tonsillectomy Bilateral myringotomy and tube placement *PRIMARY SURGEON: []Rosalva Norris *SPRING MACHINE OPERATOR(S): []none ANESTHETIC: []general *ESTIMATED BLOOD LOSS in ml's: []3 mL *SPECIMEN(S) REMOVED: []right and left tonsil *COMPLICATIONS: None[] DRAIN(S): None[x] TUBE(S): None[x] IMPLANT(S): None[x] FLUIDS: [] URINE OUTPUT: [] *FINDINGS: []clear middle ear space. 2+ cyrptic tonsils joselo aterally DISPOSITION: To PACU[] Electronically Signed by Rosalva Norris MD on 08/10 01/29 at 1220 RPT #:[id number] END OF REPORT 2020-09-06 12:18:00-00:00 [id number] [address] PATIENT NAME: LACI HALL ADMIT DATE: 09/06/20 ACCOUNT NO: [id number] ROOM NO: AGE: 25 REPORT TYPE: OPERATIVE REPORT SEX: F ADMITTING PHYSICIAN: ATTENDING PHYSICIAN:Rosalva Norris MD OPERATION DATE: SERVICE: Otolaryngology. PREOPERATIVE DIAGNOSES: 1. Chronic tonsillitis. 2. Recurrent acute otitis media. POSTOPERATIVE DIAGNOSES: 1. Chronic tonsillitis. 2. Recurrent acute otitis media. PROCEDURES: 1. Tonsillectomy, greater than 12 years old. 2. Bilateral myringotomy and tube placement. PRIMARY SURGEON: Rosalva Norris MD. SPRING MACHINE OPERATOR: ANESTHESIA: General. ESTIMATED BLOOD LOSS: 3 mL. FINDINGS: The patient was seen to have a retract ed tympanic membrane on the left side. The right middle ear space appeared t o be clear. Baltazar tubes were placed in the myringotomy. Tonsils were 2+, cryp tic bilaterally with tonsilliths within the left tonsil tissue. PROCEDURE IN DETAIL: After written informed cons ent was obtained from the patient, she was taken back to the operating cinda m and induced under general anesthesia. The ears were first addressed. An ea r speculum was placed in the right ear canal and the microscope was introduce d to visualize the ear canal. Bringing the tympanic membrane to view a myringotomy knife was used to make an incision in the tympanic mem brane at the anterior inferior quadrant. The middle ear space was seen to be dry. A Baltazar 1.14 mm tub e was placed through the myringotomy. Ofloxacin drops were then placed in the ear canal followed by cotton ball. The same was performed on the left side with similar findings. The tympanic membrane was se en to be somewhat erythematous and retracted on the left. The patient was then turned 90 degrees a nd a tonsillectomy was then performed. Using an oral retractor, the patient was then knott spended to the [facility] for PATIENT NAME: LACI HALL 50 exposure of the oropharynx. Lidocaine 1% with epinephrine was injected into the anterior tonsillar pillars bilaterally. A red ru bber catheter was passed through the right naris and used to susp end the soft palate. Evaluation of the adenoid pad revealed no significant adenoid tiss ue. The left tonsil was addressed first. Using a straight Allis clamp, the superior tonsillar pole was grasped and retracted medial ly. An incision using the ENTceps on a setting of 3 was made from the superior to inferior pole. Dis section then proceeded in a superior to inferior, anteri or to posterior fashion. The entire left tonsil was removed and submitted for permanent pathology. H emostasis was obtained using the ENTceps on a setting of 3. The same was perf ormed on the right side with removal of the entire right tonsil and submissio n to permanent pathology. The oral cavity and oropharynx were then irr igated out with saline. Hemostasis was confirmed and an orogastric tube was then passed to suction out the gastric and esophageal contents. The pat ient was taken down from suspension and turned over to anesthesia for proper awakening. She tolerate d the procedure well without any complications and was tr ansferred to the recovery room in stable condition. Dictated By: Rosalva Norris MD WT: OP:GFAITH/DEE/LISA Conf#: [id number]#: [id number] Authenticated by Rosalva Norris MD On 09/22/2020 07 :24:50 PM Electronically Signed by Rosalva Norris MD on at 3161 PATIENT NAME: LACI HALL 50
[2022-10-08 12:16] LABS: Absolute Lymphocytes (CBC) 1.7 K/uL (0.7-4.9); Hematocrit 41.9 % (36.0-45.0); Lymphocytes % 20.6 % (15.3-44.8); MCV 86.2 fL (80-100); MPV 8.4 fL (7.6-11.3); RBC Red Blood Cell Count 4.87 M/uL (3.86-4.86)
[2022-10-08 12:30] LABS: Albumin 3.5 g/dL (3.4-5.0); Bilirubin Total 0.5 mg/dL (0.2-1.0)
[2022-10-08 12:30] LABS: SARS-CoV-2 Antigen Rapid Res Positive (Negative)
[2022-10-08] MEDS ORDERED: POTASSIUM CL SA 10 MEQ TAB PO ONE (13:04)
--- NOTE | 2022-10-08 13:13 | RAD REPORT ---
EXAM DESCRIPTION: [facility] Pa And Lat (2 Views)10/08/2022 12:51 pm CLINICAL HISTORY: COUGH COMPARISON: Chest Single View dated 09/07/2020; Chest Single View dated 02/21/2020; Chest Pa And Lat (2 Views) dated 02/02/2018; CHEST SINGLE VIEW dated 06/28/2015 TECHNIQUE: PA and lateral views of the chest. FINDINGS: The lungs are clear. No pneumothorax or effusion. The cardiomediastinal contours are unre markable. IMPRESSION: No acute cardiopulmonary process.
--- NOTE | 2022-10-08 13:21 | EDPHYS ---
Physician Documentation [facility] Name: Letty Hall Age: 27 yrs Sex: Female : 1995 Arrival Date: 10/08/2022 Time: 11:07 Bed 29 Private MD: Mikie Chisholm ED Physician Lyle Tran HPI: 10/08 13:17 This 27 yrs old Female presents to ER via Ambulatory with complaints of bs3 Breathing Difficulty, Dizziness. 13:17 27-year-old female history of GERD hypocalcemia baseline is 7.5 anxiety depression bs3 unknown immunodeficiency possible Sjogren's hypoparathyroidism on multiple medications presents with cough nasal congestion and the feeling like she cannot breathe, as started yesterday she has body aches but denies any fevers she notes some chest tightness as well no sick contacts no recent travel. Historical: - Allergies: 11:37 Haldol; iw 11:37 VANCOMYCIN AND DERIVATIVES; iw - PMHx: 11:37 Anxiety; Depression; GERD; hypocalcemia; hypoparathyroidism; psuedo cranial iw hypertension; Sinus Tachycardia; - PSHx: 11:37 Cholecystectomy; DNC X 2; Tonsillectomy; iw ROS: 13:17 Constitutional: Negative for fever, chills bs3 13:17 All other systems are negative. Exam: 13:17 Constitutional: This is a well developed, well nourished patient who is awake, alert, bs3 and in no acute distress. Head/Face: Normocephalic, atraumatic. Eyes: Pupils equal round and reactive to light, extra-ocular motions intact. Lids and lashes normal. ENT: mmm, no posterior phyarngeal erythema Neck: Trachea midline, no thyromegaly, no neck stiffness Chest/axilla: Normal chest wall appearance and motion. Nontender with no deformity. No lesions are appreciated. Cardiovascular: Tachycardic no murmur Respiratory: Lungs have equal breath sounds bilaterally, clear to auscultation, no respiratory distress Abdomen/GI: Soft, non-tender, no rebound or guarding Skin: Warm, dry with normal turgor. Normal color with no rashes, no lesions, and no evidence of cellulitis. MS/ Extremity: Pulses equal, no cyanosis. Neurovascular intact. Full, normal range of motion. Neuro: Awake and alert, GCS 15, oriented to person, place, time, and situation. Cranial nerves II-XII grossly intact. Motor strength 5/5 in all extremities. Sensory grossly intact. Vital Signs: 11:31 BP 129 / 91; Pulse 115; Temp 97.9; Pulse Ox 94% on R/A; iw MDM: 11:24 Patient medically screened. bs3 13:17 Differential diagnosis: asthma, Bronchitis reactive airway disease, Viral illness. Data bs3 reviewed: vital signs, nurses notes. ED course: Patient with baseline tachycardia she lives around 115 she also is scheduled to follow-up with cardiology to get a Holter monitor her EKG here is normal sinus rhythm at [address] elevation or depression her QTc is 455 will evaluate for pneumonia given her immunocompromise state COVID flu RSV She was found to be COVID and flu positive I recommended treatment however she notes that she cannot take anything because of her other medications I strongly advised her to follow-up with her multidisciplinary clinic and discuss Paxlovid and Tamiflu she is borderline hypoxic however her symptom duration is only 1 day she is not in the hyper inflammatory state and should not get antibiotics or steroids at this point in time. 13:22 ED course: In addition per the patient her potassium and calcium are at her baseline. bs3 10/08 11:32 Order name: Influenza Screen (a \T\ B); Complete Time: 12:26 bs3 10/08 11:32 Order name: SARS-COV-2 Antigen Rapid; Complete Time: 12:38 bs3 10/08 11:32 Order name: RSV; Complete Time: 12:38 bs3 10/08 11:32 Order name: CBC with Diff; Complete Time: 12:26 bs3 10/08 11:32 Order name: Comprehensive Metabolic Panel; Complete Time: 12:38 bs3 10/08 11:32 Order name: Chest Pa And Lat (2 Views) XRAY; Complete Time: 13:17 bs3 10/08 11:32 Order name: EKG - Nurse/Tech; Complete Time: 12:10 bs3 Administered Medications: 13:00 Drug: Potassium Chloride PO Liquid 40 mEq Route: PO; iw Disposition Summary: 10/08/22 13:21 Discharge Ordered Location: Home bs3 Problem: new bs3 Symptoms: have improved bs3 Condition: Stable bs3 Diagnosis - Acute upper respiratory infection, unspecified bs3 - Influenza due to unidentified influenza virus with other respiratory manifestations bs3 Followup: bs3 - With: Mikie Chisholm MD - When: 1 - 2 days - Reason: Re-evaluation by your physician Discharge Instructions: - Discharge Summary Sheet bs3 - Upper Respiratory Infection, Adult bs3 Forms: - Work release form iw - Medication Reconciliation Form bs3 - Thank You Letter bs3 - Antibiotic Education bs3 - Prescription Opioid Use bs3 Prescriptions: - Paxlovid (EUA) 300 mg (150 mg x 2)-100 mg Oral Tablet, Dose Pack - take 1 dose pack by ORAL route per package directions; 1 blisters; Refills: 0, bs3 Product Selection Permitted - Tamiflu 75 mg Oral Capsule - take 1 tablet by ORAL route every 12 hours for 5 days; 10 tablet; Refills: 0, bs3 Product Selection Permitted Signatures: Dispatcher [employer] Lacey Acosta RN RN iw Lyle Tran MD MD bs3 Corrections: (The following items were deleted from the chart) 13:18 13:17 27-year-old female history of GERD hypocalcemia baseline is 7.5 anxiety bs3 depression unknown immunodeficiency possible Sjogren's hypoparathyroidism on multiple medications presents with cough nasal congestion and the feeling like she cannot breathe as started yesterday she has body aches but denies any fevers she notes some chest tightness as well no sick contacts no recent travel. bs3
--- NOTE | 2022-10-08 13:21 | ER ---
Nurse's Notes [facility] Name: Letty Hall Age: 27 yrs Sex: Female : 1995 Arrival Date: 10/08/2022 Time: 11:07 Bed 29 Private MD: Mikie Chisholm Diagnosis: Acute upper respiratory infection, unspecified;Influenza due to unidentified influenza virus with other respiratory manifestations Presentation: 10/08 11:31 Chief complaint: Patient states: pt states feel like being ran over. cough congestion. iw 11:31 Method Of Arrival: Ambulatory iw 11:37 Coronavirus screen: Client presents with at least one sign or symptom that may indicate iw coronavirus-19. Ebola Screen: Patient negative for fever greater than or equal to 101.5 degrees Fahrenheit, and additional compatible Ebola Virus Disease symptoms Patient denies exposure to infectious person. Patient denies travel to an Ebola-affected area in the 21 days before illness onset. No symptoms or risks identified at this time. Initial Sepsis Screen: Does the patient meet any 2 criteria? No. Patient's initial sepsis screen is negative. Does the patient have a suspected source of infection? No. Patient's initial sepsis screen is negative. Risk Assessment: Do you want to hurt yourself or someone else? Patient reports no desire to harm self or others. Onset of symptoms was October 08, 2022. 11:37 Acuity: BHAKTI 3 iw Historical: - Allergies: 11:37 Haldol; iw 11:37 VANCOMYCIN AND DERIVATIVES; iw - PMHx: 11:37 Anxiety; Depression; GERD; hypocalcemia; hypoparathyroidism; psuedo cranial iw hypertension; Sinus Tachycardia; - PSHx: 11:37 Cholecystectomy; DNC X 2; Tonsillectomy; iw Screenin:00 [facility] ED Fall Risk Assessment (Adult) History of falling in the last 3 months, iw including since admission. Abuse screen: Denies threats or abuse. Denies injuries from another. Nutritional screening: No deficits noted. Tuberculosis screening: No symptoms or risk factors identified. Assessment: 13:00 Reassessment: Patient appears in no apparent distress at this time. Patient and/or iw family updated on plan of care and expected duration. Pain level reassessed. Patient is alert, oriented x 3, equal unlabored respirations, skin warm/dry/pink. Vital Signs: 11:31 BP 129 / 91; Pulse 115; Temp 97.9; Pulse Ox 94% on R/A; iw ED Course: 11:09 Patient arrived in ED. mr 11:10 Mikie Chisholm MD is Private Physician. mr 11:24 Lyle Tran MD is Attending Physician. bs3 11:37 Triage completed. iw 12:10 Inserted saline lock: 20 gauge in right antecubital area, using aseptic technique. zm Blood collected. 12:10 Comprehensive Metabolic Panel Sent. zm 12:10 CBC with Diff Sent. zm 12:10 RSV Sent. zm 12:10 SARS-COV-2 Antigen Rapid Sent. zm 12:10 Influenza Screen (a \T\ B) Sent. zm 12:52 Chest Pa And Lat (2 Views) XRAY In Process Unspecified. EDMS 13:00 Patient has correct armband on for positive identification. iw 13:20 Mikie Chisholm MD is Referral Physician. bs3 Administered Medications: 13:00 Drug: Potassium Chloride PO Liquid 40 mEq Route: PO; iw Medication: 13:00 VIS not applicable for this client. iw Outcome: 13:21 Discharge ordered by . bs3 13:52 Patient left the ED. iw Signatures: Dispatcher [employer] KARANNC Zeinab Pimentel Irene, RN RN iw Martinez, Zaina zm Stein, Brandon, MD MD bs3
[2022-10-08 14:12] VITALS: BP 129/91; TEMP 97.9; O2SAT 94
--- NOTE | 2022-10-09 12:10 | EKG ---
Test Date: 2022-10-08 Test Time: 12:07:08 Fleet Coordinator: RJ MEASUREMENT RESULTS: Intervals: Rate: 108 VA: 132 QRSD: 84 QT: 340 QTc: 455 Arnot: P: 58 VA: 132 QRS: 65 T: -2 INTERPRETIVE STATEMENTS: Sinus tachycardia T wave abnormality, consider inferior ischemia Abnormal ECG Compared to ECG 08/31/2022 12:40:46 T-wave abnormality now present Possible ischemia now present Myocardial infarct finding no longer present Electronically Signed On 10-09-22 12:06:11 CDT by Thor Burrell
== END 2022-10-08 13:52 | disposition home or self-care (01) ==
LOC: ER 11:07
DX: U07.1 COVID-19 (principal); J10.1 Influenza due to other identified influenza virus with other respiratory manifestations; Z88.3 Allergy status to other anti-infective agents; Z88.5 Allergy status to narcotic agent
CPT/HCPCS: 36415; 71046; 80053; 85025; 87804; 87807; 87811; 93005; 99284

== ENCOUNTER 2022-12-19 22:28 | Emergency (ER) | payer BC, OTHER ==
--- OUTSIDE RECORDS SUMMARY | 2022-12-19 22:34 | XMS REPORT | Continuity of Care Document ---
:[address] [facility] [place] [place] t Address [address] [place] [address] Care Team Providers Name Role Phone Louis Rahman MD, William Primary Care Physician [phone] Rosalva Norris Attending Clinician Unavailable Aaron De Luna Attending Clinician Unavailable Nayan Barnhart Attending Clinician Unavailable ISAIAH FARRELL Attending Clinician Unavailable AYE NEWSOME Attending Clinician Unavailable Aye Newsome NP Attending Clinician MARISSA HORN Attending Clinician Unavailable MARISSA HORN Attending Clinician Unavailable Nurse, [facility] Attending Clinician Unavailable Doctor Unassigned, [place] Attending Clinician Unavailable KOKI SOTO Attending Clinician Unavailable BETH DÍAZ Attending Clinician Unavailable PENNIE_Delvin Attending Clinician Unavailable Nisa Brown Attending Clinician [phone] Dao Hines Attending Clinician Dotty_Pappas Attending Clinician Unavailable Deanna Anthony Attending Clinician SANDEEP HOSKINS Attending Clinician Unavailable Yaya Chisholm Admitting Clinician Unavailable Nayan Barnhart Admitting Clinician Unavailable PENNIE_Delvin Admitting Clinician Unavailable Humberto Admitting Clinician Unavailable YAYA SPICER Admitting Clinician Unavailable Payers Payer Name Policy Type Policy Number Effective Date Expiration Date [facility] [id number] 2022 2023 COMM 00:00:00 00:00:00 [facility] [id number] 2022 00:00:00 CELSOPHILIPLucas MIRZA - [id number] [place] [id number] [place] [place] [id number] [facility]OM[facility]'S HEALTH PROGRAM (MEDICAID) Problems Condition Condition Condition Status Onset Resolution Last Treating Co mments Source Name Details Category Date Date Treatment Clinician Date Female Female Disease Active Univers infertilit infertilit 1-09 it y of y y 00:00: [place] associated associated 00 Me dical with with Branch anovulatio anovulatio n n Pain in Pain in Problem Active [facility]anna throat Throat 11-20 Commun[facility] 00:[facility] Fever Fever Problem Active Joanna 11-20 Communi 00:00: [facility] Wheezing Wheezing Problem Active [place] y 11-20 Communi 00:00: [facility] COVID-19 Covid-19 Problem Active [place] [facility] 7-13 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 [place] disorder [place] Medica [place] Mastoiditi Mastoiditi Disease Active U nivers s of both s of both 6-07 ity of sides sides 00:00: [place] [facility] 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 [...] (BMI 7-28 ity of 30-39.9) 30-39.9) 00:00: [place] [facility] S/P S/P Disease Active Univers cholecyste cholecyste 3-04 it y of ctomy ctomy 00:00: [place] [facility] Blurred Blurred Disease Active Univers vision vision 1-15 ity of 00:00: [place] [facility] Allergies, Adverse Reactions, Alerts Allergy Allergy Status Severity Reaction(s) Onset Inactive Treating Comm ents Source Name Type Date Date Clinician haloperi DA Active [facility] dol 4-27 Clear 00:00: 00 [facility] vancomyc DA Active [facility] in 4-27 Clear 00:00: 00 [facility] haloperi DA Active AL [facility] dol 4-27 Clear 00:00: 00 [facility] vancomyc DA Active AL MASTOIDITIS [facility] in 4-27 Clear 00:00: 00 [facility] Haloperi Propensi Active Anaphylaxis U nivers dol ty to 5 ity of Lactate adverse 00:00: [place] reaction 00 Medical s Branch HALOPERI DRUG Active Anaphylaxis Uni vers DOL INGREDI 09-08 ity of LACTATE 00:00: [place] [facility] Haloperi Propensi Active 2016-05 Method [...] adverse 00:00: syndrome" [place] reaction Medical s [place] MORPHINE DRUG Active Other-Cmnt Univ ers INGREDI 12-05 ity of 00:00: [place] [facility] VANCOMYC DRUG Active Unknown-Cmnt Un [place] IN INGREDI 12-05 ity of 00:00: [place] [facility] HALDOL Allergy Active Moderate Other Joanna to Communi substanc ty e Hospita l Clinics Vancomyc Allergy Active Moderate Other Sween y in to Communi substan ty e Hospita l Clinics Family History Family Member Diagnosis Comments Start Date Stop Date Source Maternal aunt Depression [facility] Maternal aunt Suicide Attempts [facility] Natural mother Depression [facility] Natural mother Suicide Attempts [facility] Social History Social Habit Start Date Stop Date Quantity Comments Source History of tobacco Cigarette Smoker University of use [facility] Gender identity [facility] Sexual orientation [facility] Hospital Exposure to 2022-07-16 2022-07-26 Not sure University SARS-CoV-2 (event) 00:00:00 17:54:00 [place] [facility] Tobacco use and 2022-05-19 2022-05-19 User of Universit y of exposure 00:00:00 00:00:00 smokeless [facility] tobacco [place] Cigarettes smoked 2022-05-19 2022-05-19 Univers ity of current (pack per 00:00:00 00:00:00 ) - Reported Branch Alcohol intake 2019-02-20 2019-02-20 Current drinker [facility] 00:00:00 00:00:00 of alcohol Hospital (finding) History of Social 2019-02-19 2019-02-[address] function 00:00:00 00:00:00 Hospital Alcohol Comment 2019-02-19 2019-02-19 drinks casually, Met hodist 00:00:00 00:00:00 once a month, 3 Hospital X a year Sex Ass[birth year] At [birth year] Jain 00:00:00 00:00:00 Hospital Smoking Status Start Date Stop Date Source Heavy Tobacco Smoker [facility] Smokes tobacco daily 2022-05-19 00:00:00 Univers ity of [place] [facility] Medications Ordered Filled Start Stop Current Ordering Indication Dosage Frequency Signature Comments Components Source Medication Medication Date Date Medication? Clinician (SIG) Name Name benzonatate Yes [id number] 200mg Take 2 Univers 100 mg 3-18 capsules ity of capsule 00:00[place] ([place] Medical times Branch daily as needed for Cough. ofloxacin 2022- No [id number] 5[drp] Place 5 Univers 0.3 % otic 3-18 03-29 Drops in ity of drops 00:00: 04:59 right ear [place] 00 :00 in the Medical morning Branch and 5 Drops in the evening. Do all this for 10 days. diclofenac 2022- No [id number] 50mg Take 1 Univers 50 mg 3-18 03-24 tablet by ity of tablet 00:00: 04:59 mouth in [place] 00 :00 the Medical morning Branch and 1 tablet at noon and 1 tablet in the evening. Do all this for 5 days. calcitrioL Yes .5ug Take 0.5 Uni vers 0.5 mcg 1-09 mcg by ity of capsule 08:37: mouth. [place] 19 Medical [place] calcium Yes 5{tbl} Take 5 Univer s [...] by ity of 500 mg 08:37: mouth. [place] calcium 19 Medical (1,250 mg) Branch capsule [...] by ity of 500 mg 08:37: mouth. [place] calcium 19 Medical (1,250 mg) Branch capsule [...] by ity of 500 mg 08:37: mouth. [place] calcium 19 Medical (1,250 mg) Branch capsule 0 Yes Take by [employer] vit 1-09 mouth. ity of no.124/iron 08:37: [place] /folic 19 Medical ( Branch VITAMIN ORAL) calcitrioL 2022-0 Yes .5ug Take 0.5 Uni vers 0.5 mcg 1-09 mcg by ity of capsule 08:37: mouth. [place] 19 Medical Branch calcium 2022-0 Yes 5{tbl} Take 5 [employer] carbonate 1-09 tablets by ity of 500 mg 08:37: mouth. [place] calcium 19 Medical (1,250 mg) Branch capsule 0 Yes Take by [employer] vit 1-09 mouth. ity of no.124/iron 08:37: [place] /folic 19 Medical ( Branch VITAMIN ORAL) calcitrioL 2022-0 Yes .5ug Take 0.5 Uni vers 0.5 mcg 1-09 mcg by ity of capsule 08:37: mouth. [place] 19 Medical Branch calcium 2022-0 Yes 5{tbl} Take 5 [employer] carbonate 1-09 tablets by ity of 500 mg 08:37: mouth. [place] calcium 19 Medical (1,250 mg) Branch capsule 0 Yes Take by [employer] vit 1-09 mouth. ity of no.124/iron 08:37: [place] /folic 19 Medical ( Branch VITAMIN ORAL) calcitrioL 2022-0 Yes .5ug Take 0.5 Uni vers 0.5 mcg 1-09 mcg by ity of capsule 08:37: mouth. [place] 19 Medical Branch calcium 2022-0 Yes 5{tbl} Take 5 [employer] carbonate 1-09 tablets by ity of 500 mg 08:37: mouth. [place] calcium 19 Medical (1,250 mg) Branch capsule 0 Yes Take by [employer] vit 1-09 mouth. ity of no.124/iron [...] 34 (two) Medical times Branch daily. vilazodone 3-0 Yes 20mg Take 20 mg U nivers 20 mg 1-09 by mouth ity of 08:36: daily. [place] [address] Medical Branch vortioxetin 2022-0 Yes Take by Uni vers e 10 mg Tab 1-09 mouth ity of 08:36: daily. [place] [address] Medical Branch topiramate 2022-0 Yes 25mg Take 25 mg U nivers 25 mg 1-09 by mouth ity of tablet 08:36: daily. [place] [address] Medical Branch CALCIUM 2022-0 Yes 2500mg Take 2,500 Un [place] CARBONATE 1-09 mg by ity of (TUMS ORAL) 08:36: mouth 2 [place] [id number] (two) Medical times Branch daily. magnesium 2022-0 [...] 1-09 daily. ity of MISC 08:36: Indication [place] [address] s: OTC Medical Branch GUAIFENESIN 2022-0 Yes Take by Uni vers ORAL 1-09 mouth. ity of 08:36: [address] Branch clonazePAM 2022-0 Yes 1mg Take 1 mg Un le[place] 1 mg tablet -09 by mouth 3 it y of 08:36: (three) [place] [address] times [facility] daily. Branch acetaZOLAMI 2022-0 Yes 300mg Take 300 U nivers [place] 250 mg 1-09 mg by ity of tablet 08:36: mouth 2 [place] [address] (two) Medical times Branch daily. vilazodone 2022-0 Yes 20mg Take 20 mg U nivers 20 mg -09 by mouth ity of 08:36: daily. [place] [address] Medical Branch vortioxetin 2022-0 Yes Take by Uni vers e 10 mg Tab 1-09 mouth ity of 08:36: daily. [address] Branch topiramate 2022-0 Yes 25mg Take 25 mg U nivers 25 mg 1-09 by mouth ity of tablet 08:36: daily. [place] [address] Medical Branch CALCIUM 2022-0 Yes 2500mg Take [...] 1-09 daily. ity of MISC 08:36: Indication [place] [address] s: OTC Medical Branch GUAIFENESIN 2022-0 Yes Take by Uni vers ORAL 1-09 mouth. ity of 08:36: [place] [address] Medical Branch clonazePAM 2022-0 Yes 1mg Take 1 mg Un le[place] 1 mg tablet 1-09 by mouth 3 it y of 08:36: (three) [place] [address] times Medical daily. Branch acetaZOLAMI 0 Yes 300mg Take 300 U nivers DE 250 mg 1-09 mg by ity of tablet 08:36: mouth 2 [place] 34 (two) Medical times Branch daily. vilazodone 2022-0 Yes 20mg Take 20 mg U nivers 20 mg 1-09 by mouth ity of 08:36: daily. [place] [address] Medical Branch vortioxetin 2022-0 Yes Take by Uni vers e 10 mg Tab 1-09 mouth ity of 08:36: daily. [place] [address] Medical Branch topiramate 2022-0 Yes 25mg Take 25 mg U nivers 25 mg 1-09 by mouth ity of tablet 08:36: daily. [place] [address] Medical Branch CALCIUM 2022-0 Yes 2500mg Take [...] [place] 34 s: OTC Medical Branch GUAIFENESIN 0 Yes Take by Uni vers ORAL 1-09 mouth. ity of 08:36: [place] [address] Medical Branch clonazePAM 0 Yes 1mg Take 1 mg Un leonarda 1 mg tablet 1-09 by mouth 3 it y of 08:36: (three) [place] 34 times Medical daily. Branch acetaZOLAMI 0 Yes 300mg Take 300 U nivers DE 250 mg 1-09 mg by ity of tablet 08:36: mouth 2 [place] 34 (two) Medical times Branch daily. vilazodone 2022-0 Yes 20mg Take 20 mg U nivers 20 mg 1-09 by mouth ity of 08:36: daily. [place] [address] Medical Branch vortioxetin Yes Take by Uni vers e 10 mg Tab 1-09 mouth ity of 08:36: daily. [place] [address] Medical Branch topiramate 2022-0 Yes 25mg Take 25 mg U nivers 25 mg 1-09 by mouth ity of tablet 08:36: daily. [place] [address] Medical Branch CALCIUM 2022-0 Yes 2500mg Take [...] [place] 34 s: OTC Medical Branch GUAIFENESIN 0 Yes Take by Uni vers ORAL 1-09 mouth. ity of 08:36: [place] [address] Medical Branch clonazePAM 2022-0 Yes 1mg Take 1 mg Un le[place] 1 mg tablet 1-09 by mouth 3 it y of 08:36: (three) [place] [address] times Medical daily. Branch acetaZOLAMI 2022-0 Yes 300mg Take 300 U nivers DE 250 mg 1-09 mg by ity of tablet 08:36: mouth 2 [place] [address] (two) Medical times Branch daily. vilazodone 2022-0 Yes 20mg Take 20 mg U nivers 20 mg 1-09 by mouth ity of 08:36: daily. [place] [address] Medical Branch vortioxetin 2022-0 Yes Take by Uni vers e 10 mg Tab 1-09 mouth ity of 08:36: daily. [place] [address] Medical Branch topiramate 2022-0 Yes 25mg Take 25 mg U nivers 25 mg 1-09 by mouth ity of tablet 08:36: daily. [place] [address] Medical Branch CALCIUM 2022-0 Yes 2500mg Take 2,500 Un [place] CARBONATE 1-09 mg by ity of (TUMS ORAL) 08:36: mouth 2 [place] [facility] (two) Medical times Branch daily. magnesium 2022-0 Yes 400mg Take 400 Uni vers oxide 400 1-09 mg by ity of mg tablet 08:36: mouth [place] 34 daily. Medical Branch cholecalcif 2022-0 Yes 1000U Take 1,000 Univers hira, 1-09 Units by ity of vitamin D3, 08:36: mouth [place] 25 [facility] 34 daily. Medical (1,000 Branch unit) tablet POTASSIUM 2022-0 Yes 75mg 75 mg Univers CHLORIDE 1-09 daily. ity of MISC 08:36: Indication [place] [address] s: OTC Medical Branch GUAIFENESIN 2022-0 Yes Take by Uni vers ORAL 1-09 mouth. ity of 08:36: [place] [address] Medical Branch clonazePAM 2022-0 Yes 1mg Take 1 mg Un le[place] 1 mg tablet 1-09 by mouth 3 it y of 08:36: (three) [place] [address] times Medical daily. Branch acetaZOLAMI 2022-0 Yes 300mg Take 300 U nivers DE 250 mg 1-09 mg by ity of tablet 08:36: mouth 2 [place] [address] (two) Medical times Branch daily. vilazodone 2022-0 Yes 20mg Take 20 mg U nivers 20 mg 1-09 by mouth ity of 08:36: daily. [place] [address] Medical Branch vortioxetin 2022-0 Yes Take by Uni vers e 10 mg Tab 1-09 mouth ity of 08:36: daily. [place] [address] Medical Branch topiramate 2022-0 Yes 25mg Take 25 mg U nivers 25 mg 1-09 by mouth ity of tablet 08:36: daily. [address] Branch CALCIUM 2022-0 Yes 2500mg Take [...] 1-09 daily. ity of MISC 08:36: Indication [place] [address] s: OTC Medical Branch GUAIFENESIN 2022-0 Yes Take by Uni vers ORAL 1-09 mouth. ity of 08:36: [address] Branch clonazePAM 2022-0 Yes 1mg Take 1 mg Un [place] 1 mg tablet 1-09 by mouth 3 it y of 08:36: (three) [place] [address] times [facility] daily. Branch acetaZOLAMI 2022-0 Yes 300mg Take 300 U nivers DE 250 mg 1-09 mg by ity of tablet 08:36: mouth 2 [place] [address] (two) Medical times [place] daily. vilazodone 2022-0 Yes 20mg Take 20 mg U nivers 20 mg 1-09 by mouth ity of 08:36: daily. [address] Branch vortioxetin 2022-0 Yes Take by Uni vers e 10 mg Tab 1-09 mouth ity of 08:36: daily. [place] [address] Medical Branch topiramate 2022-0 Yes 25mg Take 25 mg U nivers 25 mg 1-09 by mouth ity of tablet 08:36: daily. [address] Branch CALCIUM 2022-0 Yes 2500mg Take [...] vers ORAL 1-09 mouth. ity of 08:36: [place] [address] Medical Branch clonazePAM 2022-0 Yes 1mg Take 1 mg Un [place] 1 mg tablet 1-09 by mouth 3 it y of 08:36: (three) [place] [address] times Medical daily. Branch acetaZOLAMI 2022-0 Yes 300mg Take 300 U nivers DE 250 mg 1-09 mg by ity of tablet 08:36: mouth 2 [place] 34 (two) Medical times [place] daily. vilazodone 2022-0 Yes 20mg Take 20 mg U nivers 20 mg 1-09 by mouth ity of 08:36: daily. [address] Branch vortioxetin 2022-0 Yes Take by Uni vers e 10 mg Tab 1-09 mouth ity of 08:36: daily. [address] Branch topiramate 2022-0 Yes 25mg Take 25 mg U nivers 25 mg 1-09 by mouth ity of tablet 08:36: daily. [address] Branch CALCIUM 2022-0 Yes 2500mg Take [...] 1-09 daily. ity of MISC 08:36: Indication [place] [address] s: OTC Medical Branch GUAIFENESIN Yes Take by Uni vers ORAL -09 mouth. ity of 08:36: [address] HYDROcodone 2020- No 1{tbl} 1 tablet, Univers -acetaminop 05-23 Oral, ity of hen (NORCO 02:30: 01:27 ONCE, 1 [place] as 5) 5-325 mg 00 :00 dose, Tue Med ical tablet 1 05/22/20 at [facility] h tablet 2030, LAMIN iohexol 2020- No 120mL 120 mL, Unive rs (OMNIPAQUE 05-23 Intravenou it y of 350 01:00: 00:38 s, ONCE, 1 [place] BULK-100 00 :00 dose, Tue Medica l mL) 05/22/20 at [place] injection 1900, 120 mL Routine NaCl 0.9% 2020- No 1000mL at 999 Uni vers (NS) bolus 05-22 mL/hr, ity of infusion 23:30: 01:55 1,000 mL, [place] as 1,000 mL 00 :00 IV Medical Infusion, Branch ONCE, 1 dose, 05/22/20 at 1730, [place] dicyclomine Yes [id number] 10mg Take 1 Univers (BENTYL) 10 1-12 capsule by it y of mg capsule 00:00: mouth 4 [place] (four) Medical times Branch daily as needed for Abdominal pain. ondansetron Yes [id number] 4mg Take 1 Univers 4 mg 1-12 tablet by ity of disintegrat 00:00: mouth [place] ing tablet 00 every 12 Medic al (twelve) Branch hours as needed for Nausea and Vomiting (N/V). dicyclomine Yes [id number] 10mg Take 1 Univers (BENTYL) 10 1-12 capsule by it y of mg capsule 00:00: mouth 4 [place] (four) Medical times Branch daily as needed for Abdominal pain. ondansetron Yes [id number] 4mg Take 1 Univers 4 mg 1-12 tablet by ity of disintegrat 00:00: mouth [place] ing tablet 00 every 12 Medic al (twelve) Branch hours as needed for Nausea and Vomiting (N/V). dicyclomine 2020-0 Yes [id number] 10mg Take 1 Univers (BENTYL) 10 1-12 capsule by it y of mg capsule 00:00: mouth 4 [place] (four) Medical times Branch daily as needed for Abdominal pain. ondansetron 2020-0 Yes [id number] 4mg Take 1 Univers 4 mg 1-12 tablet by ity of disintegrat 00:00: mouth [place] ing tablet 00 every 12 Medic al (twelve) Branch hours as needed for Nausea and Vomiting (N/V). dicyclomine 2020-0 Yes [id number] 10mg Take 1 Univers (BENTYL) 10 1-12 capsule by it y of mg capsule 00:00: mouth 4 [place] (four) Medical times Branch daily as needed for Abdominal pain. ondansetron 2020-0 Yes [id number] 4mg Take 1 Univers 4 mg 1-12 tablet by ity of disintegrat 00:00: mouth [place] ing tablet 00 every 12 Medic al (twelve) Branch hours as needed for Nausea and Vomiting (N/V). dicyclomine 2020-0 Yes [id number] 10mg Take 1 Univers (BENTYL) 10 1-12 capsule by it y of mg capsule 00:00: mouth 4 [place] (four) Medical times Branch daily as needed for Abdominal pain. ondansetron 2020-0 Yes [id number] 4mg Take 1 Univers 4 mg 1-12 tablet by ity of disintegrat 00:00: mouth [place] ing tablet 00 every 12 Medic al (twelve) Branch hours as needed for Nausea and Vomiting (N/V). dicyclomine 2020-0 Yes [id number] 10mg Take 1 Univers (BENTYL) 10 1-12 capsule by it y of mg capsule 00:00: mouth 4 [place] (four) Medical times Branch daily as needed for Abdominal pain. ondansetron 2020-0 Yes [id number] 4mg Take 1 Univers 4 mg 1-12 tablet by ity of disintegrat 00:00: mouth [place] ing tablet 00 every 12 Medic al (twelve) Branch hours as needed for Nausea and Vomiting (N/V). dicyclomine 2020-0 Yes [id number] 10mg Take 1 Univers (BENTYL) 10 1-12 capsule by it y of mg capsule 00:00: mouth 4 [place] (four) Medical times Branch daily as needed for Abdominal pain. ondansetron 0 Yes [id number] 4mg Take 1 Univers 4 mg 1-12 tablet by ity of disintegrat 00:00: mouth [place] ing tablet 00 every 12 Medic al (twelve) Branch hours as needed for Nausea and Vomiting (N/V). dicyclomine Yes [id number] 10mg Take 1 Univers (BENTYL) 10 1-12 capsule by it y of mg capsule 00:00: mouth 4 [place] (four) Medical times Branch daily as needed for Abdominal pain. ondansetron Yes [id number] 4mg Take 1 Univers 4 mg 1-12 tablet by ity of disintegrat 00:00: mouth [place] ing tablet 00 every 12 Medic al (twelve) Branch hours as needed for Nausea and Vomiting (N/V). dicyclomine Yes [id number] 10mg Take 1 Univers (BENTYL) 10 1-12 capsule by it y of mg capsule 00:00: mouth 4 [place] (four) Medical times Branch daily as needed for Abdominal pain. ondansetron Yes [id number] 4mg Take 1 Univers 4 mg 1-12 tablet by ity of disintegrat 00:00: mouth [place] ing tablet 00 every 12 Medic al (twelve) Branch hours as needed for Nausea and Vomiting (N/V). dicyclomine Yes [id number] 10mg Take 1 Univers (BENTYL) 10 1-12 capsule by it y of mg capsule 00:00: mouth 4 [place] (four) Medical times Branch daily as needed for Abdominal pain. ondansetron 0 Yes [id number] 4mg Take 1 Univers 4 mg 1-12 tablet by ity of disintegrat 00:00: mouth [place] ing tablet 00 every 12 Medic al (twelve) Branch hours as needed for Nausea and Vomiting (N/V). acetaminoph 0 2020- No [id number] 1{tbl} Take 1 U nivers en-codeine 1-12 01-20 tablet by ity of (TYLENOL-CO 00:00: 05:59 mouth [place] DEINE #3) 00 :00 every 6 Medical 300-30 mg (six) Branch tablet hours as needed for Pain (scale 7-10) for up to 7 days. Indication s: acute pain magnesium 2018-05 Yes 400mg QD Take 400 Met hodi oxide 0-[address] ([facility]) 17:06: mouth Hospita 400 mg 45 daily. l (241.3 mg magnesium) tablet cholecalcif 2018-05 Yes 1000U QD Take 1,000 Methodi hira, 0-[address] vitamin D3, 17:06: mouth Hospi ta (VITAMIN 45 daily. l D3) 1,000 unit tablet magnesium 2018-05 Yes 400mg QD Take 400 Met hodi oxide 0-[address] ([facility]) 17:06: mouth Hospita 400 mg 45 daily. l (241.3 mg magnesium) tablet cholecalcif 2018-05 Yes 1000U QD Take 1,000 Methodi hira, 0-14 Units by vitamin D3, 17:06: mouth Hospi ta (VITAMIN 45 daily. l D3) 1,000 unit tablet magnesium 2018-05 Yes 400mg QD Take 400 Met hodi oxide 0-[address] ([facility]) 17:06: mouth Hospita 400 mg 45 daily. l (241.3 mg magnesium) tablet cholecalcif 2018-05 Yes 1000U QD Take 1,000 Methodi hira, 0-14 Units by vitamin D3, 17:06: mouth Hospi ta (VITAMIN 45 daily. l D3) 1,000 unit tablet magnesium 2018-05 Yes 400mg QD Take 400 Met hodi oxide 0-14 mg by ([facility] 17:06: mouth Hospita 400 mg 45 daily. l (241.3 mg magnesium) tablet cholecalcif 2018-05 Yes 1000U QD Take 1,000 Methodi hira, 0-14 Units by vitamin D3, 17:06: mouth Hospi ta (VITAMIN 45 daily. l D3) 1,000 unit tablet magnesium 2018-05 Yes 400mg QD Take 400 Met hodi oxide 0-14 mg by ([facility]) 17:06: mouth Hospita 400 mg 45 daily. [...] Met hodi oxide 0-[address] ([facility]) 17:06: mouth Hospita 400 mg 45 daily. l (241.3 mg magnesium) tablet cholecalcif 2018-05 Yes 1000U QD Take 1,000 Methodi hira, 0-14 Units by vitamin D3, 17:06: mouth Hospi ta (VITAMIN 45 daily. l D3) 1,000 unit tablet magnesium 2018-05 Yes 400mg QD Take 400 Met hodi oxide 0-14 mg by ([facility]) 17:06: mouth Hospita 400 mg 45 daily. l (241.3 mg magnesium) tablet cholecalcif 2018-05 Yes 1000U QD Take 1,000 Methodi hira, 0-14 Units by vitamin D3, 17:06: mouth Hospi ta (VITAMIN 45 daily. l D3) 1,000 unit tablet magnesium 2018-05 Yes 400mg QD Take 400 Met hodi oxide 0-14 mg by ([facility]) 17:06: mouth Hospita 400 mg 45 daily. l (241.3 mg magnesium) tablet magnesium 2018-05 Yes 400mg QD Take 400 Met hodi oxide 0-14 mg by ([facility]) 17:06: mouth Hospita 400 mg 45 daily. l (241.3 mg magnesium) tablet cholecalcif 2018-05 Yes 1000U QD Take 1,000 Methodi hira, 0-14 Units by vitamin D3, 17:06: mouth Hospi ta (VITAMIN 45 daily. l D3) 1,000 unit tablet cholecalcif 2018-05 Yes 1000U QD Take 1,000 Methodi hira, 0-14 Units by vitamin D3, 17:06: mouth Hospi ta (VITAMIN 45 daily. l D3) 1,000 unit tablet GUAIFENESIN 2017-05 Yes Take by Uni vers ORAL 0-03 mouth. ity of 20:28: [address] 2017-05 Yes Take by Uni vers ORAL 0-03 mouth. ity of 20:28: [address] GUAIFENESIN 2017-05 Yes Take by Uni vers ORAL 0-03 mouth. ity of 20:28: [address] 2017-05 Yes Take by Uni vers ORAL 0-03 mouth. ity of 20:28: [address] CALCIUM 2017-05 Yes 2500mg Take 2,500 [...] vers ORAL 0-03 mouth. ity of 15:28: [address] CALCIUM 2017-05 Yes 2500mg Take 2,500 [...] by ity of tablet 00:59: mouth 2 [place] 04 (two) Medical times Branch daily. vilazodone Yes 20mg Take 20 mg U nivers (VIIBRYD) 6-08 by mouth ity of 20 mg 00:59: daily. [address] vortioxetin Yes Take by Uni vers e 10 mg Tab 6-08 mouth ity of 00:59: daily. [place] [id number] Medical Branch topiramate 2018-0 Yes 25mg Take 25 mg U nivers (TOPAMAX) 6-08 by mouth ity of 25 mg 00:59: daily. [place] tablet Medical Branch magnesium 2018-0 [...] 6-08 daily. ity of MISC 00:59: Indication [place] [id number] s: OTC Medical Branch clonazePAM 0 Yes [...] mouth ity of 20 mg 00:59: daily. [place] [address] Medical Branch vortioxetin 2017-0 Yes Take by Uni vers e 10 mg Tab 6-08 mouth ity of 00:59: daily. [place] [address] Medical Branch topiramate 2018-0 Yes 25mg Take [...] 6-08 daily. ity of MISC 00:59: Indication [place] [address] s: OTC Medical Branch clonazePAM 2017-0 Yes 1mg Take 1 mg Un leonarda (KLONOPIN) 6-08 by mouth 3 ity of 1 mg tablet 00:59: (three) [place] 04 times Medical daily. Branch acetaZOLAMI 2017-0 Yes 300mg Take 300 U nivers DE 250 mg 6-08 mg by ity of tablet 00:59: mouth 2 [place] [address] (two) Medical times Branch daily. vilazodone 2017-0 Yes 20mg Take 20 mg U nivers (VIIBRYD) 6-08 by mouth ity of 20 mg 00:59: daily. [place] [address] Medical Branch vortioxetin Yes Take by Uni vers e 10 mg Tab 6-08 mouth ity of 00:59: daily. [place] [address] Medical Branch topiramate 0 Yes 25mg Take 25 mg U nivers (TOPAMAX) 6-08 by mouth ity of 25 mg 00:59: daily. [place] [address] Medical Branch magnesium 0 Yes 400mg Take [...] 6-08 daily. ity of MISC 00:59: Indication [place] [address] s: OTC Medical Branch clonazePAM 0 Yes 1mg Take 1 mg Un leonarda (KLONOPIN) 6-08 by mouth 3 ity of 1 mg tablet 00:59: (three) [place] as 04 times Medical daily. Branch acetaZOLAMI 0 Yes 300mg Take 300 U nivers DE 250 mg 6-08 mg by ity of tablet 00:59: mouth 2 [place] [address] (two) Medical times Branch daily. vilazodone 2017-0 Yes 20mg Take 20 mg U nivers (VIIBRYD) 6-08 by mouth ity of 20 mg 00:59: daily. [place] [address] Medical Branch vortioxetin 0 Yes Take by Uni vers e 10 mg Tab 6-08 mouth ity of 00:59: daily. [place] [address] Medical Branch topiramate 2017-0 Yes 25mg Take [...] 20mg Take 20 mg U nivers (VIIBRYD) 6-07 by mouth ity of 20 mg 19:59: daily. [address] Branch vortioxetin Yes Take by Uni vers e 10 mg Tab 6-07 mouth ity of 19:59: daily. [address] Branch topiramate Yes 25mg Take 25 mg U nivers (TOPAMAX) 6-07 by mouth ity of 25 mg 19:59: daily. [place] [address] Medical [place] magnesium Yes 400mg Take 400 Uni vers oxide 400 6-07 mg by ity of mg tablet 19:59: mouth [place] 04 daily. Medical Branch cholecalcif 0 Yes 1000U Take 1,000 Univers hira, 6-07 Units by ity of vitamin D3, 19:59: mouth [place] (VITAMIN 04 daily. Medical D3) 1,000 Branch unit tablet POTASSIUM 2017-0 Yes 75mg 75 mg Univers CHLORIDE 6-07 daily. ity of MISC 19:59: Indication 04 s: OTC Medical Branch albuterol albuterol No 3mL TID albuterol Joanna sulfate 2.5 sulfate 2.5 sulfate Communi mg/3 [...] for 30 days. albuterol albuterol No albuterol Jo[place] sulfate HFA sulfate HFA sulfate Communi 90 90 HFA 90 ty mcg/actuati mcg/actuati mcg/actuat Hospita on aerosol on aerosol ion l inhaler inhaler aerosol Clinic s INHALE 2 INHALE 2 inhaler PUFFS BY PUFFS BY INHALE 2 MOUTH EVERY MOUTH EVERY PUFFS BY 4 TO 6 4 TO 6 MOUTH HOURS HOURS EVERY 4 TO 6 HOURS azithromyci azithromyci No azithromyc Joanna n 250 mg n 250 mg in [...] THROUGH DAY 5 calcitriol calcitriol No calcitriol Joanna 0.5 mcg 0.5 mcg 0.5 mcg Commun i capsule capsule capsule ty TAKE 1 TAKE 1 TAKE 1 Hospita CAPSULE BY CAPSULE BY CAPSULE BY l MOUTH 4 MOUTH 4 MOUTH 4 Clinic s TIMES DAILY TIMES DAILY TIMES FOR 90 DAYS FOR 90 DAYS DAILY FOR 90 DAYS fluocinonid fluocinonid No fluocinoni Joanna e 0.05 % e 0.05 % de [...] FOR 30 DAYS methocarbam methocarbam No methocarba Joanna ol 750 mg ol 750 mg mol 750 mg Communi tablet TAKE tablet TAKE tablet ty 1 TABLET BY 1 TABLET BY TAKE 1 Hospita MOUTH EVERY MOUTH EVERY TABLET BY l 8 HOURS 8 HOURS MOUTH Clinics EVERY 8 HOURS prednisone prednisone No 1dose prednisone Joanna 10 mg 10 mg pk(s) 10 mg [...] for 6 days. calcitriol calcitriol No calcitriol Joanna 0.5 mcg 0.5 mcg 0.5 mcg Commun i capsule capsule capsule ty TAKE 1 TAKE 1 TAKE 1 Hospita CAPSULE BY CAPSULE BY CAPSULE BY l MOUTH 4 MOUTH 4 MOUTH 4 Clinic s TIMES DAILY TIMES DAILY TIMES FOR 90 DAYS FOR 90 DAYS DAILY FOR 90 DAYS Valium 5 mg Valium 5 mg No Valium 5 Joanna tablet Take tablet Take mg tablet Communi [...] Source Systolic blood 2022-07-27 00:57:35 131 [facility]Hg[facility] 2022-07-27 00:57:35 83 mm[Hg] [facility] Heart rate 2022-07-27 00:57:35 105 /min [facility] Body temperature 2022-07-27 00:57:35 36.94 Loli [facility] Respiratory rate 2022-07-27 00:57:35 20 /min [facility] Oxygen saturation in 2022-07-27 00:57:35 96 /min [facility] Arterial blood by [facility] Pulse oximetry Branch Body height 2022-07-26 22:52:00 165.1 cm [facility] Body weight 2022-07-26 22:52:00 122.471 kg [facility] [place] [facility] BMI 2022-07-26 22:52:00 44.93 kg/m2 [facility] [place] [facility] Systolic blood 2022-05-27 19:12:00 116 mm[Hg] [facility]iver [facility] [place] [facility] Diastolic blood 2022-05-27 19:12:00 80 mm[Hg] Unive [facility]ity [facility] [place] [facility] Heart rate 2022-05-27 19:12:00 90 /min [facility] [place] [facility] Body height 2022-05-27 19:12:00 165.1 cm [facility] [place] [facility] Body weight 2022-05-27 19:12:00 127.007 kg [facility] [place] [facility] BMI 2022-05-27 19:12:00 46.59 kg/m2 [facility] [place] [facility] Systolic blood 2022-05-19 14:23:00 124 mm[Hg] [facility] [place] [facility] Diastolic blood 2022-05-19 14:23:00 87 mm[Hg] [facility] [place] [facility] Heart rate 2022-05-19 14:23:00 85 /min [facility] [place] [facility] Body temperature 2022-05-19 14:23:00 36.61 Loli [facility] [place] [facility] Respiratory rate 2022-05-19 14:23:00 18 /min [facility] [place] [facility] Body height 2022-05-19 14:23:00 165.1 cm [facility] [place] [facility] Body weight 2022-05-19 14:23:00 127.461 kg [facility] [place] [facility] BMI 2022-05-19 14:23:00 46.76 kg/m2 [facility] Branch BP Diastolic 2021-02-28 00:00:00 82 mm[Hg] [facility] s Height 2021-02-28 00:00:00 65 [in_i] [facility] s BMI (Body Mass 2021-02-28 00:00:00 44.6 kg/m2 [facility] s BP Systolic 2021-02-28 00:00:00 126 mm[Hg] [facility] s Body Weight 2021-02-28 00:00:00 4291.2 [oz_av] [facility] s BP Diastolic 2020-11-20 00:00:00 83 mm[Hg] [facility] s Height 2020-11-20 00:00:00 65 [in_i] [facility] s BMI (Body Mass 2020-11-20 00:00:00 46 kg/m2 [facility] s BP Systolic 2020-11-20 00:00:00 137 mm[Hg] [facility] s Body Weight 2020-11-20 00:00:00 4425.6 [oz_av] [facility] s Systolic blood 2020-05-23 01:36:00 143 mm[Hg] Univer sity of pressure [facility] Diastolic blood 2020-05-23 01:36:00 99 mm[Hg] Unive rsity of [facility] Heart rate 2020-05-23 01:36:00 94 /min Universi ty [facility] Respiratory rate 2020-05-23 01:36:00 18 /min [facility] Oxygen saturation in 2020-05-23 01:36:00 100 /min [facility] Arterial blood by [facility] Pulse oximetry Branch Body temperature 2020-05-23 01:15:52 37 Loli [facility] Body height 2020-05-22 22:41:00 165.1 cm Universi ty [facility] Body weight 2020-05-22 22:41:00 127.007 kg Universi ty [facility] BMI 2020-05-22 22:41:00 46.59 kg/m2 Universi [facility] Systolic blood 2020-05-23 01:36:00 143 mm[Hg] Univer sity of pressure [facility] Diastolic blood 2020-05-23 01:36:00 99 mm[Hg] Unive rsity of pressure [place] [facility] Heart rate 2020-05-23 01:36:00 94 /min Universi ty [facility] Respiratory rate 2020-05-23 01:36:00 18 /min [facility] O[facility] saturation in 2020-05-23 01:36:00 100 /min [facility] blood by [facility] Pulse oximetry Branch Body temperature 2020-05-23 01:15:52 37 Loli [facility] Body height 2020-05-22 22:41:00 165.1 cm [facility] Body weight 2020-05-22 22:41:00 127.007 kg [facility] BMI 2020-05-22 22:41:00 46.59 kg/m2 [facility] Procedures Procedure Date / Time Performing Source Performed Clinician POCT TEST 2022-07-26 Aye Newsome [facility] 23:24:00 [facility] URINALYSIS 2022-07-26 Aye Newsome [facility] exas 23:22:00 [facility] RAPID INFLUENZA A/B 2022-07-26 Aye Newsome [facility] 23:22:00 [facility] COVID-19 (ID NOW RAPID 2022-07-26 Aye Newsome [facility] TESTING) 23:22:00 [facility] ASSIGNMENT OF BENEFITS 2022-07-26 Doctor Unassigned, [facility] 23:11:38 [place] [facility] [place] CONSENT/REFUSAL FOR DIAGNOSIS 2022-07-26 Doctor Unassigned, [facility] AND TREATMENT 22:44:29 [place] [facility] FL HYSTEROSALPINGOGRAM 2022-05-27 [facility] 20:15:00 [facility] POCT TEST 2022-05-27 [facility] 00:00:00 [facility] OB TRANSVAGINAL 2022-05-19 [facility] 15:11:19 [facility] HYDRAULIC ASSEMBLER CLINIC ULTRASOUND 2022-05-19 Doctor Unassigned, [facility] 06:01:00 [place] [facility] POCT TEST 2022-05-19 [facility] 00:00:00 [facility] XR, chest, 2 view 2020-11-20 [facility] 00:00:[address] ABDOMEN PELVIS W CONTRAST 2020-05-23 Dao Nicolas [facility] 00:46:11 Medical Branch POCT TEST 2020-05-23 Dao Nicolas [facility] 00:09:00 Medical Branch LIPASE 2020-05-22 Dao Nicolas [facility] exas 23:59:00 Medical Branch COMP. METABOLIC PANEL ([id number]) 2020-05-22 [facility] 23:59[facility] CBC WITH DIFF 2020-05-22 Dao Nicolas [facility] exas 23:59:00 Medical Branch URINALYSIS 2020-05-22 Dao Nicolas [facility] ex 23:59:00 Medical Branch CONSENT/REFUSAL FOR DIAGNOSIS 2020-05-22 Doctor Unassigned, [facility] AND TREATMENT 22:30:18 [facility] [place] AUTHORIZATION FOR RELEASE OF 2019-07-28 Doctor Unassigned, [facility] PHI 05:01:00 [place] [facility] Endoscopy 2015-05-11 [facility] 00:00:00 Hospital Clinics Breast Biopsy 2015-05-11 [facility] 00:00:00 Hospital Clinics Cholecystectomy 2012-05-11 [facility] 00:00:00 Hospital Clinics Ear Tube [facility] Clinics Plan of Care Planned Activity Planned Date Details Comments Source Future Scheduled Test 2022-12-13 COVID-19 VACCINE (#1) [facility] [place] [facility] 02:54:35 [code = COVID-19 VACCINE (#1)] Future Scheduled Test 2022-12-13 Screening for [facility] 02:54:35 malignant neoplasm of cervix (procedure) [code = 310107699] Future Scheduled Test 2022-12-13 INFLUENZA VACCINE [facility] 02:54:35 [code = INFLUENZA VACCINE] Future Scheduled Test 2022-11-05 COVID-19 VACCINE (#1) [facility] [place] [facility] 12:44:41 [code = COVID-19 VACCINE (#1)] Future Scheduled Test 2022-11-05 Screening for [facility] 12:44:41 malignant neoplasm of cervix (procedure) [code = 302675409] Future Scheduled Test 2022-11-05 INFLUENZA VACCINE [facility] 12:44:41 [code = INFLUENZA VACCINE] Future Scheduled Test 2022-08-09 COVID-19 VACCINE (#1) [facility] [place] [facility] 14:29:56 [code = COVID-19 VACCINE (#1)] Future Scheduled Test 2022-08-09 [facility] 14:29:56 malignant neoplasm of cervix (procedure) [code = 087454873] Future Scheduled Test 2022-08-09 INFLUENZA VACCINE [facility] 14:29:56 [code = INFLUENZA VACCINE] Future Scheduled Test 2022-08-09 COVID-19 VACCINE (#1) [facility] [place] [facility] 14:29:56 [code = COVID-19 VACCINE (#1)] Future Scheduled Test 2022-08-09 Screening for [facility] 14:29:56 malignant neoplasm of cervix (procedure) [code = 615820989] Future Scheduled Test 2022-08-09 INFLUENZA VACCINE [facility] 14:29:56 [code = INFLUENZA VACCINE] Future Scheduled Test 2022-08-09 COVID-19 VACCINE (#1) [facility] [place] [facility] 14:29:56 [code = COVID-19 VACCINE (#1)] Future Scheduled Test 2022-08-09 Screening for [facility] 14:29:56 malignant neoplasm of cervix (procedure) [code = 547884257] Future Scheduled Test 2022-08-09 INFLUENZA VACCINE [facility] 14:29:56 [code = INFLUENZA VACCINE] Future Scheduled Test 2022-03-22 INFLUENZA VACCINE [facility] 23:49:50 [code = INFLUENZA VACCINE] Future Scheduled Test 2022-03-22 HEPATITIS B VACCINES [facility] 23:49:50 (1 of 3 - 3-dose series) [code = HEPATITIS B VACCINES (1 of 3 - 3-dose series)] Future Scheduled Test 2022-03-22 COVID-19 VACCINE (#1) [facility] 23:49:50 [code = COVID-19 VACCINE (#1)] Future Scheduled Test 2022-03-22 Screening for [facility] 23:49:50 malignant neoplasm of cervix (procedure) [code = 566559643] Future Scheduled Test 2022-03-22 INFLUENZA VACCINE [facility] 23:49:50 [code = INFLUENZA VACCINE] Future Scheduled Test 2022-03-22 HEPATITIS B VACCINES [facility] 23:49:50 (1 of 3 - 3-dose series) [code = HEPATITIS B VACCINES (1 of 3 - 3-dose series)] Future Scheduled Test 2022-03-22 COVID-19 VACCINE (#1) [facility] 23:49:50 [code = COVID-19 VACCINE (#1)] Future Scheduled Test 2022-03-22 [facility] 23:49:50 malignant neoplasm of cervix (procedure) [code = 955685610] Future Scheduled Test 2022-03-22 INFLUENZA VACCINE [facility] 23:49:50 [code = INFLUENZA VACCINE] Future Scheduled Test 2022-03-22 HEPATITIS B VACCINES [facility] 23:49:50 (1 of 3 - 3-dose series) [code = HEPATITIS B VACCINES (1 of 3 - 3-dose series)] Future Scheduled Test 2022-03-22 COVID-19 VACCINE (#1) [facility] 23:49:50 [code = COVID-19 VACCINE (#1)] Future Scheduled Test 2022-03-22 Screening for [facility] 23:49:50 malignant neoplasm of cervix (procedure) [code = 356492214] Future Scheduled Test 2022-03-15 HEPATITIS B VACCINES [facility] 20:07:35 (1 of 3 - 3-dose series) [code = HEPATITIS B VACCINES (1 of 3 - 3-dose series)] Future Scheduled Test 2022-03-15 COVID-19 VACCINE (#1) [facility] 20:07:35 [code = COVID-19 VACCINE (#1)] Future Scheduled Test 2022-03-15 Pneumococcal Vaccine: [facility] 20:07:35 Pediatrics (0 to 5 Years) and At-Risk Patients (6 to 64 Years) (1 - PCV) [code = Pneumococcal Vaccine: Pediatrics (0 to 5 Years) and At-Risk Patients (6 to 64 Years) (1 - PCV)] Future Scheduled Test 2022-03-15 Hepatitis C screening [facility] 20:07:35 (procedure) [code = 645171722] Future Scheduled Test 2022-03-15 [facility] 20:07:35 malignant neoplasm of cervix (procedure) [code = 683498106] Future Scheduled Test 2022-03-15 INFLUENZA VACCINE [facility] 20:07:35 [code = INFLUENZA VACCINE] Future Scheduled Test 2022-01-09 HEPATITIS B VACCINES [facility] 20:17:48 (1 of 3 - 3-dose series) [code = HEPATITIS B VACCINES (1 of 3 - 3-dose series)] Future Scheduled Test 2022-01-09 COVID-19 VACCINE (#1) [facility] 20:17:48 [code = COVID-19 VACCINE (#1)] Future Scheduled Test 2022-01-09 Pneumococcal Vaccine: [facility] 20:17:48 Pediatrics (0 to 5 Years) and At-Risk Patients (6 to 64 Years) (1 - PCV) [code = Pneumococcal Vaccine: Pediatrics (0 to 5 Years) and At-Risk Patients (6 to 64 Years) (1 - PCV)] Future Scheduled Test 2022-01-09 Hepatitis C screening [facility] 20:17:48 (procedure) [code = 906972976] Future Scheduled Test 2022-01-09 [facility] 20:17:48 malignant neoplasm of cervix (procedure) [code = 053296860] Future Scheduled Test 2022-01-09 INFLUENZA VACCINE [facility] 20:17:48 [code = INFLUENZA VACCINE] Diagnostic Test 2020-11-20 rapid SARS CoV 2 Ag, [facility] Pending 00:00:00 QL [place], respiratory Hospital Clinics specimen [code = rapid SARS CoV 2 Ag, QL [place], respiratory specimen] Diagnostic Test 2020-11-20 rapid strep group A, [facility] Pending 00:00:00 throat [facility], throat] Diagnostic Test 2020-11-20 rapid flu (A+B) [code [facility] Pending 00:00:00 = rapid flu (A+B)] Hospital Clinics Instructions [facility] Clinic s Encounters Start End Encounter Admission Attending Care Care Encounter Source Date/Time Date/Time Type Type Clinicians Facility Department ID 2021-03-09 Emergency [facility] [id number] [facility] 2020-08[facility]29 In[facility]va [id number] [facility] 12:58:27 50 Psychiatric 2022-11-05 2022-11-05 Outpatient SELINA De Luna, [facility] ENDO [id number] [facility] 12:44:00 12:44:00 Zeid 18 Psychiatric 2022-09-10 2022-09-11 Inpatient EM Dweik, [facility].01 [id number] [facility] 12:19:00 15:57:00 Naayn 97 Psychiatric 2022-08-20 2022-08-20 Outpatient R BUD, [facility] [id number] Univers 10:30:00 10:30:00 ISAIAH ity [facility] 2022-07-26 2022-07-26 Emergency X [facility] ERT [id number] Univers 17:56:00 20:11:00 AYE ity [facility] 2022-07-26 2022-07-26 Emergency [facility] [id number] Univers 17:56:00 20:11:00 Aye DENNIS [id number] ity [facility] [id number] [id number] [facility] 084 Branch 2022-05-27 2022-05-27 Outpatient R PRANAY-HORTON, MARISSA [facility] [id number] Univers 13:02:25 23:59:00 ANAND-HORTON, MARISSA ity [facility] 2022-05-27 2022-05-27 [facility] UNIVERSIT [id number] Univers 13:02:25 23:59:00 Encounter s, Marissa Y HEALTH [id number] ity of CL[place] [id number] [facility] 807 Branch 2022-05-27 2022-05-27 Nurse Nurse, [facility] UNIVERSIT 1.2.840.1 [id number] Univers 14:30:00 15:00:00 Visit Anand-Horton, Marissa Y HEALTH 350.1.1 3.10 ity of CL[place] 4[place] [id number] [facility] 095 Branch 2022-05-20 2022-05-20 Outpatient R [facility] [id number] Univers 12:00:00 12:00:00 ity of [facility] 2022-05-19 2022-05-19 Outpatient R MARISSA HORN [facility] [id number] Univers 08:00:00 09:12:28 MARISSA HORN itveronica [facility] 2022-05-19 2022-05-19 Office [facility] [id number] Univers 08:00:00 09:12:28 Visit Marissa florence [id number] ity of [place] [id number] [address] 2022-05-19 2022-05-19 Orders Doctor ALFRED [id number] Univers 00:00:00 00:00:00 Only Unassigned, MIKHAIL [id number] ity of [place] [facility] 4.2.7.2.686 [place] [id number] [place] [address] Branch 2022-05-14 2022-05-14 Telephone [facility] [id number] Univers 00:00:00 00:00:00 Marissa [place] [id number] ity [place] [id number] [address] 2022-04-11 2022-04-11 Outpatient Lucas DÍAZ [facility] [id number] Univers 10:00:00 10:00:00 BETH cook [facility] 2021-02-28 2021-02-28 Outpatient [facility] 107 Joanna 10:39:00 10:39:00 _L 1021 Commun i ty Hospita l Clinics 2021-02-28 2021-02-28 Outpatient [facility] [id number] [id number] 00:00:00 00:00:00 , Nisa [id number] Hyacinth [id number] 2021-02-28 2021-02-28 Nisa Claros [facility] [place] - Joanna 202 [id number] Joanna 00:00:00 00:00:00 [facility] ALTAGRACIA Grant-C: Hospital - ty [address], [place] [address] , Ph. 2020-11-21 2020-11-21 Outpatient [facility] 107 Joanna 01:00:00 01:00:00 _L 0714 Commun i ty Hospita [facility] 2020-11-20 2020-11-20 Outpatient [facility] 107 Joanna 06:10:00 06:10:00 _L 0713 Commun i ty Hospita [facility] 2020-11-20 2020-11-20 Nisa Claros [facility] [place] - Joanna Joanna 00:00:00 00:00:00 [facility] ALTAGRACIA engel-C: Hospital - ty [address] [place] [address] [address], [place] [address] , Ph. 2020-11-20 2020-11-20 Outpatient [facility] [id number] [id number] 00:00:00 00:00:00 , Nisa [id number] Hyacinth [id number] 2020-05-22 2020-05-22 Emergency Sivan, [facility] [id number] [facility] 16:43:00 20:04:00 Dao Eliza [place] 350.1.13.10 i ty of [place] 4.2.7.2.686 [facility] [id number] [address] 2020-05-22 2020-05-22 Emergency Neely, [facility] 1.2.840.114 [id number] 16:43:00 20:04:00 Dao B [place] 350.1.13.10 [place] [address] [place] [address] [id number] 2020-05-22 2020-05-22 Orders Doctor ALFRED 1.2.840.114 [id number] Univers 00:00:00 00:00:00 Only Unassigned, MIKHAIL 350.1.13.10 ity of [place] [facility] 4.2.7.2.686 [place] as [id number] [address] 2020-05-22 2020-05-22 Orders Doctor ALFRED 1.2.840.114 [id number] 00:00:00 00:00:00 Only Unassigned, MIKHAIL 350.1.13.10 [place] [facility] 4.2.7.2.686 [id number] 2020-02-15 2020-02-15 Outpatient G_Pappas [facility] [id number] [place] 12:05:00 12:05:00 1007 [facility] 2019-08-02 2019-08-02 Outpatient R [facility] [id number] Univers 18:40:00 18:40:00 ity of [facility] 2019-08-02 2019-08-02 [facility] [id number] Univers 00:00:00 00:00:00 [facility] 350.1.13.10 it y of [place] 4.2.7.2.686 [place] as Professio [id number] Wi [address] 2019-08-02 2019-08-02 Telephone [facility] [id number] 00:00:00 00:00:00 [facility] 350.1.13.10 [place] 4.2.7.2.686 Professio [id number] [place] [address] [address] [facility] 2019-07-28 2019-07-28 Orders Doctor ALFRED 1.2.840.114 [id number] Univers 00:00:00 00:00:00 Only Unassigned, MIKHAIL 350.1.13.10 ity of [place] [facility] 4.2.7.2.686 [place] as [id number] [address] 2019-07-28 2019-07-28 Orders Doctor ALFRED 1.2.840.114 [id number] 00:00:00 00:00:00 Only Unassigned, MIKHAIL 350.1.13.10 [place] [facility] [id number] 2019-02-18 2019-02-21 Inpatient SANDEEP HOSKINS [facility] [id number] [place] 00:00:00 00:00:[address] Results Test Description Test Time Test Comments Results Result Comments Source BASIC METABOLIC PANEL 2022-11-05 14:06:00 Test Item Value Reference Range Interpretation Comme nts SODIUM (test code = NA) 137 mEq/L 134-147 N POTASSIUM (test code = K) 2.6 mEq/L 3.4-5.0 LL Cr itical result called to EUGENIO RAMIREZ RN by Sivakumar JAMES.SCX1 at 1402 11/05/22Njoey r ead back resut and tech confirmed it's correct? CHLORIDE (test code = CL) 98 mEq/L 100-108 L CARBON DIOXIDE (test code = 30 mEq/l 21-33 N CO2) ANION GAP (test code = GAP) 12 0-20 N GLUCOSE (test code = GLU) 87 mg/dL 70-110 N BLOOD UREA NITROGEN (test code 11 mg/dL 7-18 N = BUN) GLOMERULAR FILTRATION RATE 121.5 110-120 H T he Glomerular Filtration Rate is (test code = GFR) a calculat ed parameterbased on serum Creatinin e, patient age and sex. GFR values less than 60 mL/min/1.73 squ are meters are indicative ofCh ronic Kidney Disease. Values less than 15 mL/min/1.73squa re meters indicate Kidney failure. The calculation forGFR is based on the CKD-EPI (2020) calculat ion. This formulais race indifferent and is the recommended formula for GFRby the National [facility] for Adults.The GFR will not calculate if th e sex is unknown or if thepatien t's age is <18 years. CREATININE (test code = CREAT) 0.7 mg/dL 0.6-1.3 N CALCIUM (test code = CA) 6.5 mg/dL 8.0-10.5 L BASIC METABOLIC [id number] 13:35:00 Test Item Value Reference Range Interpretation Comments SODIUM (test code = 137 mEq/L 134-147 N NA) POTASSIUM (test code 2.9 mEq/L 3.4-5.0 LL Critica l result called = K) to AUGUST Kosta KIRKLAND.SCX1 at 1335 11/04/22Nurse r ead back resut and tech confirmed it's correct? Y CHLORIDE (test code 99 mEq/L 100-108 L = CL) CARBON DIOXIDE (test 28 mEq/l 21-33 N code = CO2) ANION GAP (test code 13 0-20 N = GAP) GLUCOSE (test code = 94 mg/dL 70-110 N GLU) BLOOD UREA NITROGEN [...] the recommended for prateek for GFRby the Nat nal Kidney Foundati on for Adults.The GFR will not calculate if th e sex is unknown or if thepatient's ag e is <18 years. CREATININE (test 0.6 mg/dL 0.6-1.3 N code = CREAT) CALCIUM (test code = 7.5 mg/dL 8.0-10.5 L CA) HCG SERUM [id number] 11:50:00 Test Item Value Reference Range Interpretation Comments HCG SERUM QUAL (test code = SERUM NEGATIVE NEGATIVE HCGQL) CBC W/AUTO [id number] 11:47:00 Test Item Value Reference Range Interpretation Comments WHITE BLOOD CELL (test code = 13.8 x10 3/uL 4.5-11.0 H WBC) RED BLOOD CELL (test code = 5.05 x10 6/uL 3.54-5.02 H RBC) HEMOGLOBIN (test code = HGB) 14.8 g/dL 11.0-15.0 N HEMATOCRIT (test code = HCT) 42.7 % 33.0-45.0 N MEAN CELL VOLUME (test code = 84.6 fL 81.0-99.0 N MCV) MEAN CELL HGB (test code = MCH) 29.3 pg 27.0-33.0 N MEAN CELL HGB CONCETRATION 34.7 g/dL 33.0-37.0 N (test code = MCHC) RED CELL DISTRIBUTION WIDTH CV 12.8 % 11.5-14.5 N (test code = RDW) RED CELL DISTRIBUTION WIDTH SD 38.9 fL 37.0-54.0 N (test code = RDW-SD) PLATELET COUNT (test code = 331 x10 3/uL 150-400 N PLT) MEAN PLATELET VOLUME (test code 10.4 fL 7.0-9.0 H = MPV) NEUTROPHIL % (test code = NT%) 67.5 % 56.0-77.0 N IMMATURE GRANULOCYTE % (test 0.4 % 0.0-2.0 N code = IG%) LYMPHOCYTE % (test code = LY%) 26.3 % 14.0-32.0 N MONOCYTE % (test code = MO%) 5.0 % 4.8-9.0 N EOSINOPHIL % (test code = EO%) 0.7 % 0.3-3.7 N BASOPHIL % (test code = BA%) 0.1 % 0.0-2.0 N NUCLEATED RBC % (test code = 0.0 % 0-0 N NRBC%) NEUTROPHIL # (test code = NT#) 9.34 x10 3/uL 2.0-7.6 H IMMATURE GRANULOCYTE # (test 0.05 x10 3/uL 0.00-0.03 H code = IG#) LYMPHOCYTE # (test code = LY#) 3.64 x10 3/uL 1.0-3.8 N MONOCYTE # (test code = MO#) 0.69 x10 3/uL 0.1-0.8 N EOSINOPHIL # (test code = EO#) 0.10 x10 3/uL 0.0-0.2 N BASOPHIL # (test code = BA#) 0.02 x10 3/uL 0.0-0.2 N NUCLEATED RBC # (test code = 0.00 x10 3/uL 0.0-0.1 N NRBC#) MANUAL DIFF REQUIRED (test code NO = MDIFF) CALCIUM [id number] 02:07:00 Test Item Value Reference Range Interpretation Comments CALCIUM IONIZED (test code = VICKY) 0.86 MMOL/L 1.09-1.30 L PTH RELATED [id number] 02:07:00 Test Item Value Reference Range Interpretation [...] contact the laboratory.Perf ormed At: [facility] [address] [place] [address] [id number] Oswald MD Ph:[phone] [ Automated message] The [employer] stem which generated this result transmitted ref erence range: (). The referen ce range was not used to interpr et this result as normal/abnor mal. UR CALCIUM [id number] 17:08:00 Test Item Value Reference Range Interpretation Comments UR CALCIUM RANDOM 14.1 mg/dL Not Estab. (test code = CAU) UR CALCIUM 24HR 212 mg/24 hr 0-320 Performed At : HD (test code = CA24T) [facility] [address] [id number] Tal Hargrove MD Ph:[phone] UR CREATININE [id number] 17:08:00 Test Item Value Reference Range Interpretation Comments UR CREATININE 120.9 mg/dL The Reference Range and RANDOM (test code Method Per formance = CREATU) specificationsh ave not been establishe d for this fluid. The test resultshould be correlated into the clinical contex t forinterpretati on. UR CREATININE 1.8 GM/24HR 1.0-1.6 H 24HR (test code = AZOD00M) UR VOLUME (test 1500 mL code = VOL) BASIC METABOLIC [id number] 08:10:00 Test Item Value Reference Range Interpretation [...] code = 7.5 mg/dL 8.0-10.5 L CA) [id number] 08:10:00 Test Item Value Reference Range Interpretation Comments PHOSPHOROUS (test code = PHOS) 4.8 MG/DL 2.5-4.9 N [id number] 08:10:00 Test Item Value Reference Range Interpretation Comments MAGNESIUM (test code = MAG) 1.76 mg/dL 1.80-2.40 L CALCIUM [id number] 08:10:00 Test Item Value Reference Range Interpretation Comments CALCIUM IONIZED (test code = VICKY) 0.94 MMOL/L 1.09-1.30 L CBC W/AUTO [id number] 06:49:00 Test Item Value Reference Range Interpretation [...] (test code NO = MDIFF) CBC W/AUTO [id number] 07:49:00 Test Item Value Reference Range Interpretation [...] (test code NO = MDIFF) COMPREHENSIVE METABOLIC [id number] 07:33:00 Test Item Value Reference Range Interpretation [...] the recommended for prateek for GFRby the State [facility] on for Adults.The GFR will [...] 20-125 N TOTAL (test code = ALKP) [id number] 07:33:00 Test Item Value Reference Range Interpretation Comments PHOSPHOROUS (test code = PHOS) 6.1 MG/DL 2.5-4.9 H [id number] 07:33:00 Test Item Value Reference Range Interpretation Comments MAGNESIUM (test code = MAG) 1.72 mg/dL 1.80-2.40 L - US HEAD AND [id number] 00:00:00 [facility] 1995 Sex: F Name:LACI HALL [facility] : 1995 Age/S: 27 / F [address] [place] [address] Unit #: [id number] Loc: [place] [address] Phys: Kelton Cotto Acct: [id number] Dis Date: Status: ADM IN PHONE #: [phone] Exam Date: 09/10/2022 6734 FAX #: [phone] Reason: hypoparathyroidism EXAMS:CPT CODE: [id number] US HEAD AND NECK 06775 PROCEDURE INFORMATION: Exam: US Soft Tissue Head [...] M.D. CC: Kelton Cotto; Yaya Chisholm MD [facility] nologist: Peggy Killian Trnscb Date/Time: 09/10/2022 (1627) [email or web address] Orig Print D/T: S: 09/10/2022 (1627) Probe: PAGE 1 Signed ReportVITAMIN D 25-HYDROXY 2022-09-09 21:25:00 Test Item Value Reference Range Interpretation Comments VITAMIN D 25-HYDROXY (test code = 35.7 ng/mL 30-100 N VITD25) Indication for Test: PTH DisorderPTH INTACT [id number] 21:24:00 Test Item Value Reference Range Interpretation Comments PARATHYROID HORMONE INTACT (test 7.8 pg/mL 14.0-72.0 L code = PARAI) UR HCG [id number] 16:33:00 Test Item Value Reference Range Interpretation Comments UR HCG QUAL (test code = HCGQLU) NEGATIVE NEGATIVE COMPREHENSIVE METABOLIC [id number] 15:50:00 Test Item Value Reference Range Interpretation [...] 20-125 N TOTAL (test code = ALKP) [id number] 15:50:00 Test Item Value Reference Range Interpretation Comments PHOSPHOROUS (test code = PHOS) 4.8 MG/DL 2.5-4.9 N BILIRUBIN [id number] 15:50:00 Test Item Value Reference Range Interpretation Comments BILIRUBIN DIRECT (test code = 0.10 MG/DL 0.0-0.30 N BILD) [id number] 15:50:00 Test Item Value Reference Range Interpretation Comments MAGNESIUM (test code = MAG) 1.62 mg/dL 1.80-2.40 L TSH REFLEX TO [id number] 15:50:00 Test Item Value Reference Range Interpretation Comments TSH REFLEX TO FT4 (test code = 2.15 IU/mL 0.42-5.47 N TSHREFLEX) TROP-I HIGH [id number] 15:50:00 Test Item Value Reference Range Interpretation Comments TROP-I HIGH < 3 ng/L 0-34 N CAUTION: Units of the SENSITIVITY (test current te st methodology code = TROPIHS) (ng/L) diffe rfrom the prior test meth odology (ng/mL) by a fa ctor of 1000. 99t h Percentile Uppe r Reference Limit (URL): Fe males: 34 ng/LMales: 54 n g/L In order to distin guish acute elevations of h igh sensitivitytrop onin [...] URLs mayvar y by method. B-TYPE NATRIURETIC [id number] 15:46:00 Test Item Value Reference Range Interpretation Comments B-TYPE NATRIURETIC PEPTIDE (test 3.0 PG/ML 0-100 N code = BNP) C REACTIVE [id number] 15:37:00 Test Item Value Reference Range Interpretation Comments C REACTIVE PROTEIN (test code = 12.0 mg/L <10.0 H CRP) CBC W/AUTO [id number] 15:24:00 Test Item Value Reference Range Interpretation [...] REQUIRED (test code NO = MDIFF) POCT [id number] 23:24:00 Test Item Value Reference Range Interpretation Comments POCT PREG (test code = 1605) negative On board controls acceptable with present C Line (test code = 3574) POCT PREG LOT # (test code = 3575) [id number] POCT PREG TEST DATE (test 10-09-2023 code = 3576) Lab Interpretation (test code = Normal 92136-1) [facility] [id number] 19:12:00 Test Item Value Reference Range Interpretation Comments POCT PREG (test code = 1605) Negative On board controls acceptable with C Yes Line (test code = 3574) POCT PREG LOT # (test code = 3575) POCT PREG TEST DATE (test code = 3576) [facility] [id number] 16:18:00 Test Item Value Reference Range Interpretation Comments POCT PREG (test code = 1605) Negative On board controls acceptable with C Yes Line (test code = 3574) POCT PREG LOT # (test code = 3575) POCT PREG TEST DATE (test code = 3576) [facility] [id number] 08:10:00 Test Item Value Reference Range Interpretation Comments SURGICAL PATH SPECIMENS (test code = SURG) RUN DATE: 09/11/20 [place] - LAB PAGE 1 RUN TIME: 0810 Specimen Inquiry RUN USER: INTERFACE PATIENT: LACI HALL LOC: MOO U #: [id number] AGE/SX: 25/F ROOM: RE09/06/20[facility] DR: Rosalva Norris MD : [birth year] BED: DIS: STATUS: [facility]: SPEC #: [id number] RECD: 09/07/20 STATUS: [facility] #: [id number] EDWINA: 09/07/[address]: Rosalva Norris MD ENTERED: 09/10/20 SP TYPE: SURG SPEC OTHR DR: DOES_NOT KNOW No Primary or Family PhysicianORDERED: GROSS AND MICRO CODES: HS1876 - TONSIL, NOS COPIES TO: DOES_NOT KNOW No Primary [place] [address] [id number] PROCEDURES: GROSS AND MICRO (Incomplete) TISSUES: 1. [...] CONTINUED ON NEXT PAGE RUN DATE: 09/11/20 [place] - LAB PAGE 2 RUN TIME: 809 Specimen Inquiry RUN USER: INTERFACE SPEC #: [id number] PATIENT: LACI HALL #[id number] (Continued) POST-OP DIAGNOSIS Chronic tonsillitis and adenoiditis, chronic otitis media PRE-OP DIAGNOSIS Chronic tonsillitis and adenoiditis, chronic otitis media ----- Signed SIGNATURE ON FILE Jorge Lindsay MD 09/11/20 0810 END OF REPORT Novel Coronavirus 2018 [id number] 08:22:00 Test Item Value Reference Range Interpretation [...] for the identification of SARS-CoV-2 RNA usingthe Plasmon M2000 Sy stem under the FDA Emergen cy UseAuthorizatio n. The testing is perf ormed by personneltraine d in the procedures for the Plasmon M2000 molecular diagnostic SARS-CoV-2 assa y in vitro. PROTHROMBIN [id number] 14:33:00 Test Item Value Reference Range Interpretation [...] (to prevent recurrent infar ct). THROMBOPLASTIN TIME [id number] 14:33:00 Test Item Value Reference Range Interpretation Comments THROMBOPLASTIN TIME 31.5 Seconds 25.0-39.5 N Therape utic Range: PARTIAL (test code = 50.4 - 88.3 Seconds PTT) Effective 08/24/2018 CBC W/AUTO [id number] 14:32:00 Test Item Value Reference Range Interpretation [...] REQUIRED (test code NO = MDIFF) PROTHROMBIN [id number] 14:31:00 Test Item Value Reference Range Interpretation [...] (to prevent recurrent infar ct). THROMBOPLASTIN TIME [id number] 14:31:00 Test Item Value Reference Range Interpretation Comments THROMBOPLASTIN TIME PARTIAL (test Seconds 25.0-39.5 code = PTT) HCG SERUM [id number] 14:27:00 Test Item Value Reference Range Interpretation Comments HCG SERUM QUAL (test code = SERUM NEGATIVE NEGATIVE HCGQL) CT ABDOMEN PELVIS W [id number] 01:15:53 END OF REPORT Ordering Physician: DAO [...] gallbladder.5. No evidence of appendicitis. RL: 5611 Memb, Radiant Results Inft User - 05/22/2020 7:17 [...] No evidence of appendicitis.RL: 5611IMPRESSIONEND OF REPORT [facility]. METABOLIC PANEL (24409)2020-05-23 00:26:00 Test Item Value Reference Range Interpretation Comments NA (test code = 139 mmol/L 135-145 6679721413) K (test code = 4.2 mmol/L 3.5-5 8888213202) CL (test code = 104 mmol/L 98-108 1669813822) CO2 TOTAL (test code = 26 mmol/L 23-31 2956988869) AGAP (test code = 2-16 6826087943) BUN (test code = 13 mg/dL 7-23 1511861731) GLUCOSE (test code = 101 mg/dL 70-110 3665970432) CREATININE (test code = 0.56 mg/dL 0.5-1.04 0067461354) TOTAL BILI (test code = 0.6 mg/dL 0.1-1.4 3960598864) CALCIUM (test code = 7.4 mg/dL 8.6-10.6 L 7947635356) T PROTEIN (test code = 8.8 g/dL 6.3-8.2 H 6836520581) ALBUMIN (test code = 4.2 g/dL 3.5-5 2784894516) ALK PHOS (test code = 66 U/L 34-122 3368147702) ALTv (test code = 26 U/L 5-35 1742-6) AST(SGOT) (test code = 34 U/L 13-40 9379070743) eGFR Calculation mL/min/1.73m2 (Non-) (test code = 4058840188) eGFR Calculation mL/min/1.73m2 () (test code = 3437861208) LUDY (test code = LUDY) Association of [...] tests). Lab Interpretation Abnormal (test code = 63299-7) [facility] Tyler[facility]ase [id number] 00:26:00 Test Item Value Reference Range Interpretation Comments LIPASE (test code = 7121618366) 107 U/L 0-220 Lab Interpretation (test code = Normal 74489-2) [facility] TylerUrinalysis2021-01-13 00:24:00 Test Item Value Reference Range Interpretation Comments APPEARANCE (test code = Hazy Clear A 7848735729) COLOR (test code = Yellow Yellow 3270963033) PH (test code = 4.8-8.0 7664325224) SP GRAVITY (test code = 1.003-1.030 8331890317) GLU U QUAL (test code = Normal Normal 5801763536) BLOOD (test code = Negative Negative 6766347046) KETONES (test code = Negative Negative 1940721933) PROTEIN (test code = Negative Negative 2887-8) UROBILIN (test code = Normal Normal 9871400503) BILIRUBIN (test code = Negative Negative 0140854703) NITRITE (test code = Negative Negative 4778905758) LEUK MARCIN (test code = Negative Negative 1687087019) RBC/HPF (test code = <1 See_Comment [Autom ated message] 5069444971) The system [employer] generated this result transmitted ref erence range: 0 - 3 HP F. The reference range was not used to int erpret this result as normal/abnormal . WBC/HPF (test code = See_Comment [Autom ated message] 6445388718) The system [employer] generated this result transmitted ref erence range: 0 - 5 HP F. The reference range was not used to int erpret this result as normal/abnormal . BACTERIA (test code = Negative Negative 3907726260) MUCOUS (test code = Slight Negative LPF A 8034700154) SQ EPITH (test code = HPF 4716019195) Lab Interpretation (test Abnormal code = 84938-3) [facility] with [id number] 00:12:00 Test Item Value Reference Range Interpretation Comments WBC (test code = See_Comment [Automated message] 6690-2) The system [employer] generated this result transmitted ref erence range: 4.30 - 1 1.10 10*3/?L. The re ference range was not u sed to interpret this result as normal/abnor mal. RBC (test code = See_Comment [Automated message] 269-8) The system [employer] generated this result transmitted ref erence range: [...] RDW-SD (test code 40.4 fL 39-49.9 = 61580-5) RDW-CV (test code 13.0 % 12-15.5 = 788-0) PLT (test code = See_Comment [Automated message] 467-3) The system whic h generated this result transmitted ref erence range: 166 - 35 8 10*3/?L. The re ference range was not u sed to interpret this result as normal/abnor mal. MPV (test code = 10.6 fL 9.5-12.9 83838-1) NRBC/100 WBC (test See_Comment [Automat ed message] code = 2879391472) The syste m which generated this result transmitted ref erence range: 0.0 - 10 .0 /100 WBCs. The refer ence range was not u sed to interpret this result as normal/abnor mal. NRBC x10^3 (test <0.01 See_Comment [Automated message] code = 1401846527) The syste m which generated this result transmitted ref erence range: 10*3/?L. The reference range was not used to interpr et this result as normal/abnormal . GRAN MAT (NEUT) % 57.7 % (test code = 770-8) IMM GRAN % (test 0.40 % code = 6898581741) LYMPH % (test code 32.1 % = 736-9) MONO % (test code 7.4 % = 5905-5) EOS % (test code = 2.1 % 713-8) BASO % (test code 0.3 % = 706-2) GRAN MAT 4.61 10*3/uL 1.88-7.09 x10^3(ANC) (test code = 5864063162) IMM GRAN x10^3 0.03 10*3/uL 0-0.06 (test code = 5301428789) LYMPH x10^3 (test 2.56 10*3/uL 1.32-3.29 code = 731-0) MONO x10^3 (test 0.59 10*3/uL 0.33-0.92 code = 742-7) EOS x10^3 (test 0.17 10*3/uL 0.03-0.39 code = 711-2) BASO x10^3 (test <0.03 0.01-0.07 code = 704-7) [facility] Tyler[facility] [id number] 00:09:00 Test Item Value Reference Range Interpretation Comments POCT PREG (test code = 1605) negative On board controls acceptable with present C Line (test code = 3574) POCT PREG LOT # (test code = 3575) [id number] POCT PREG TEST DATE (test 01/08/2022 code = 3576) Lab Interpretation (test code = Normal 42659-8) [facility] Notes Date/Time Note Provider Source 2022-09-11 12:34:00-00:00 [facility] ([facility]) Discharge Summary REPORT#:[id number] REPORT STATUS: Signed DATE:09/11/22 TIME: 1234 PATIENT: LACI HALL UNIT #: [id number] ROOM/BED: [place] [address] : [birth year] AGE: 27 SEX: F ATTEND: Fercho Barnhart od, MD ADM AUTHOR: Mykel Fontana [employer] VENDOR * ALL edits or amendments must be made on the [employer]/computer document * PCP PCP PCP: PCP: Yaya [...] was se nt to ER from her insole channeler office for low calcium. Her CA w [...] MD on 0 09/20/22 at 1217 RPT #:[id number] END OF REPORT 2022-09-11 12:19:00-00:00 [facility] ([facility] Endocrinology Progress Note REPORT#:[id number] REPORT STATUS: Signed DATE:09/11/22 TIME: 1219 PATIENT: LACI HALL UNIT #: [id number] ROOM/BED: [place] [address] : [birth year] AGE: 27 SEX: F ATTEND: Fercho Barnhart od, MD ADM AUTHOR: Kelton Cotto * ALL edits or amendments must be made on the [employer] document * Subjective Chief complaint: f/u hypoparathyroidism [...] not indicated Extremities: warm Musculoskeletal: normal inspection Neuro/DELIMER: alert, oriented X 3, normal speech Skin: warm Findings/data: Laboratory Tests: 09/11 0525 Chemistry Sodium (134 [...] % (Auto) (14.0 - 32.0 %) 31.3 Barren % (Auto) (4.8 - 9.0 %) 7.0 Eos % (Auto) (0.3 - 3.7 %) 2.8 Baso % (Auto) (0.0 - 2.0 %) 0.4 Neut # (Auto) (2.0 - 7.6 x10 3/uL) 4.07 Lymph # (Auto) (1.0 - 3.8 x10 3/uL) 2.20 Barren # (Auto) (0.1 - 0.8 x10 3/uL) [...] ULTRASOUND - US HEAD AND NECK 09/10 5679 Report Impression - Status: SIGNED Entered: 09/10/2022 4424 IMPRESSION: 1. Mild enlargement of the right [...] Impression By: Deandre5 - Satya Patel M.D. Laboratory Tests: 09/11 [...] % (Auto) (14.0 - 32.0 %) 31.3 Barren % (Auto) (4.8 - 9.0 %) 7.0 Eos % (Auto) (0.3 - 3.7 %) 2.8 Baso % (Auto) (0.0 - 2.0 %) 0.4 Neut # (Auto) (2.0 - 7.6 x10 3/uL) 4.07 Lymph # (Auto) (1.0 - 3.8 x10 3/uL) 2.20 Barren # (Auto) (0.1 - 0.8 x10 3/uL) [...] Report Impression - Status: SIGNED Entered: 09/10/2022 8358 IMPRESSION: 1. Mild enlargement of the right [...] Yadiel Manjarrez MD on 0 09/13/22 at 1249 RPT #:[id number] END OF REPORT 2022-09-11 08:10:00-00:00 [facility] ([facility]) Hospitalist Progress Note REPORT#:[id number] REPORT STATUS: Signed DATE:09/11/22 TIME: 809 PATIENT: LACI HALL UNIT #: [id number] [facility] [birth year] AGE: 27 SEX: F ATTEND: Fercho Barnhart od, MD ADM AUTHOR: Mykel Fontana ICE [employer]AM VENDOR * ALL edits or amendments must be made on the [employer]/computer document * Subjective Chief complaint: She is [...] clubbing, no cyanosis Musculoskeletal: no muscle spasm Neuro/DELIMER: alert, oriented X 3 Results Findings/Data: Laboratory [...] % (Auto) (14.0 - 32.0 %) 31.3 Barren % (Auto) (4.8 - 9.0 %) 7.0 Eos % (Auto) (0.3 - 3.7 %) 2.8 Baso % (Auto) (0.0 - 2.0 %) 0.4 Neut # (Auto) (2.0 - 7.6 x10 3/uL) 4.07 Lymph # (Auto) (1.0 - 3.8 x10 3/uL) 2.20 Barren # (Auto) (0.1 - 0.8 x10 3/uL) [...] ULTRASOUND - US HEAD AND NECK 09/10 145 Report Impression - Status: SIGNED Entered: 09/10/2022 7198 IMPRESSION: 1. Mild enlargement of the right [...] Barnhart MD on 0 09/20/22 at 1215 RPT #:[id number] END OF REPORT 2022-09-11 06:47:00-00:00 [facility] Nephrology Progress Note REPORT#:[id number] REPORT STATUS: Signed DATE:09/11/22 TIME: 646 PATIENT: LACI HALL UNIT #: [id number] ROOM/BED: [place] [address] : [birth year] AGE: 27 SEX: F ATTEND: Fercho Barnhart od, MD ADM AUTHOR: Gabino Meade MD * ALL edits or amendments must be made on the [employer]/computer document * Subjective Chief complaint: Generalized weakness/muscle spasm HPI: Patient seen and evaluated, discussed with care team, 27-year-old female with history of hypoparathyroidism and chroni c hypocalcemia, Sjogren's syndrome and Chiari malformation who was sent to the emergency room from her insole channeler office for low calcium of 6.5. Patient [...] Musculoskeletal: no CVA tenderness, no tendernes s Neuro/DELIMER: alert, normal speech Skin: dry, intact Results [...] - 5.47 IU/mL) 2.15 Laboratory Tests 09/10 05 0600 1511 Hematology WBC (4.5 - 11.0 [...] (Auto) (14.0 - 32.0 %) 31.9 27.8 Barren % (Auto) (4.8 - 9.0 %) 8.2 6.3 Eos % (Auto) (0.3 - 3.7 %) 3.4 1.8 Baso % (Auto) (0.0 - 2.0 %) 0.3 0.4 Neut # (Auto) (2.0 - 7.6 x10 3/uL) 3.40 4.94 Lymph # (Auto) (1.0 - 3.8 x10 3/uL) 1.94 2.17 Barren # (Auto) (0.1 - 0.8 x10 3/uL) [...] Report Impression - Status: SIGNED Entered: 09/10/2022 5057 IMPRESSION: 1. Mild enlargement of the right [...] by Gabino Meade MD on at 0949 [facility] #:[id number] END OF REPORT 2022-09-10 12:43:00-00:00 [facility] Endocrinology Consultation REPORT#:[id number] REPORT STATUS: Signed DATE:09/10/22 TIME: 1243 PATIENT: LACI HALL UNIT #: [id number] ROOM/BED: [place] [id number] : 95 AGE: 27 SEX: F ATTEND: Fercho Barnhart od, MD ADM AUTHOR: Kelton Cotto * ALL edits or amendments must be made on the [employer]/computer document * History of Present Illness Requesting Clinician: Mykel Fontana NP Reason for consult: Hypocalcemia Chief complaint: Hypocalcemia HPI: 27-year-old female history o f hypoparathyroidism with chronic hypocalcemia, age , Sjogren's syndrome, Chiari malformation was se nt to ER from her [facility] office for low calcium. Calcium there was 6.5. Patient reporting generalized weakness, muscle spasms. R eports that her baseline calcium is 7.5. Does take calcium supplements. R eports that she was diagnosed with hypoparathyroidism sinc e the age of 12. Has not [...] Result Date Time Pulse Ox 89 09/10 08 B/P 108/71 09/10 0803 B/P Mean 82.9 09/10 08 O2 Delivery Room air 09/10 802 Temp 97.5 09/10 08 Pulse 79 09/10 0803 Resp 14 09/10 0803 24 hour I O ending at 0700: [...] not indicated Extremities: warm Musculoskeletal: normal inspection Neuro/DELIMER: alert, oriented X 3, normal speech Skin: warm Results Findings/Data: Laboratory Tests: 09/10 09/09 09/09 09/09 0600 2024 2024 2024 Chemistry Sodium (134 - 147 mEq/L) 137 [...] % (Auto) (14.0 - 32.0 %) 31.9 Barren % (Auto) (4.8 - 9.0 %) 8.2 Eos % (Auto) (0.3 - 3.7 %) 3.4 Baso % (Auto) (0.0 - 2.0 %) 0.3 Neut # (Auto) (2.0 - 7.6 x10 3/uL) 3.40 Lymph # (Auto) (1.0 - 3.8 x10 3/uL) 1.94 Barren # (Auto) (0.1 - 0.8 x10 3/uL) [...] (0.0 - 0.1 x10 3/uL) 0.0 0 05/02 05/ 05/ 05/ 1555 1511 1511 1511 Chemistry Sodium (134 [...] % (Auto) (14.0 - 32.0 %) 27.8 Barren % (Auto) (4.8 - 9.0 %) 6.3 Eos % (Auto) (0.3 - 3.7 %) 1.8 Baso % (Auto) (0.0 - 2.0 %) 0.4 Neut # (Auto) (2.0 - 7.6 x10 3/uL) 4.94 Lymph # (Auto) (1.0 - 3.8 x10 3/uL) 2.17 Barren # (Auto) (0.1 - 0.8 x10 3/uL) [...] MD on 0 09/13/22 at 1248 RPT #:[id number] END OF REPORT 2022-09-10 07:56:00-00:00 [facility] REPORT#:[id number] REPORT STATUS: Signed DATE:09/10/22 TIME: 075 PATIENT: LACI HALL UNIT #: [id number] ROOM/BED: [place] [address] : 95 AGE: 27 SEX: F ATTEND: Fercho Barnhart od, MD ADM AUTHOR: Gabino Meade MD * ALL edits or amendments must be made on the [employer]/computer document * History of Present Illness Requesting clinician: Nayan Barnhart Reason for consult: Hypocalcemia Chief complaint: Generalized weakness/muscle spasm HPI: Patient seen and evaluated, discussed with care team, 27-year-old female with history of hypoparathyroidism and chroni c hypocalcemia, Sjogren's syndrome and Chiari malformation who was sent to the emergency room from her insole channeler office for low calcium of 6.5. Patient [...] 0616 CLOPIDOGREL (PLAVIX) 200 MG PO BID 09/10/22 Strength: 300 MG TAB 0610 0616 PILOCARPINE [...] Status Admin Pilocarpine HCl 5 MG TID 05/03 0900 AC (SALAGEN) PO 10/10 0859 Nicotine 7 MG Q24H 09/10 0800 CKD (NICODERM) TRANSDERM 10/10 0759 Cardiovascular Drugs Sig/Yaniv Start time Last Medication Dose Route Stop Time Status Admin Hydralazine HCl 10 MG Q6H PRN PRN 09/09 1815 AC (APRESOLINE) IV 10/09 1814 Central Nervous System Agents Sig/Yaniv Start time Last Medication Dose Route Stop Time Status Admin Aspirin 81 MG DAILY 09/10 09 AC (ASPIRIN) PO 10/10 0859 Hydrocodone Bitart/ 1 TAB ONCE ONE 09/09 1830 D C 09/09 Acetaminophen PO 09/09 1831 2000 (NORCO 5/325) Acetaminophen 650 MG Q4H PRN PRN 09/09 181 AC (TYLENOL) PO 10/09 1814 Electrolytic, Caloric, And Andie Sig/Yaniv Start time Last Medication Dose Route Stop Time Status Admin Calcium Carbonate 500 MG 5XDAY 09/10 09 AC (CALCIUM CARBONATE) PO 10/10 0859 Gastrointestinal [...] PRN 09/09 1815 AC (ZOFRAN) IV 10/09 1814 Vitamins Sig/Yaniv Start time Last Medication Dose Route Stop Time Status Admin Calcitriol 0.5 MCG DAILY 09/10 0900 AC (RocaltroL) PO 10/10 0859 Allergies: [...] Musculoskeletal: no CVA tenderness, no tendernes s Neuro/DELIMER: alert, normal speech Skin: dry, intact Results Findings/Data: Laboratory Tests 09/10 151 Chemistry Sodium (134 - 147 mEq/L) 137 [...] - 72.0 pg/mL) 7.8 L 09/09 09/09 151 1511 Chemistry Sodium (134 - 147 mEq/L) [...] - 5.47 IU/mL) 2.15 Laboratory Tests 09/10 05 0600 1511 Hematology WBC (4.5 - 11.0 [...] (Auto) (14.0 - 32.0 %) 31.9 27.8 Barren % (Auto) (4.8 - 9.0 %) 8.2 6.3 Eos % (Auto) (0.3 - 3.7 %) 3.4 1.8 Baso % (Auto) (0.0 - 2.0 %) 0.3 0.4 Neut # (Auto) (2.0 - 7.6 x10 3/uL) 3.40 4.94 Lymph # (Auto) (1.0 - 3.8 x10 3/uL) 1.94 2.17 Barren # (Auto) (0.1 - 0.8 x10 3/uL) [...] # (Man) (0.0 - 0.1 x10 3/uL) 0. 00 0.00 Laboratory Tests 09/09 1555 Urines Urine [...] by Gabino Meade MD on at 0943 [facility] #:[id number] END OF REPORT 2022-09-10 07:27:00-00:00 [facility] ([facility]) Hospitalist History Physical REPORT#:[id number] REPORT STATUS: Signed DATE:09/10/22 TIME: 726 PATIENT: LACI HALL UNIT #: [id number] ROOM/BED: [place] [id number] : 95 AGE: 27 SEX: F ATTEND: Fercho Barnhart od, MD ADM AUTHOR: Mykel Fontana [employer] V[employer]OR * ALL edits or amendments must be made on the [employer]/computer document * History of Present Illness HPI Chief complaint: Low CA PCP: PCP: Yaya Chisholm MD HPI: 27-year-old female history o f hypoparathyroidism with chronic hypocalcemia, age , Sjogren's syndrome, Chiari malformation was se nt to ER from her insole channeler office for low calcium. Calcium there was [...] HYDROXYCHLOROQUINE 200 MG PO DAILY 09/09/22 SULFATE 9 (PLAQUENIL) Strength: 200 MG TAB Nicotine 1 PATCH TOPICAL 09/09/22 (NICODERM CQ 7 MG) Q24H 2350 Strength: 7 MG/24 HOUR PATCH ASPIRIN 81 MG PO DAILY 09/10/22 09/10/22 Strength: 81 MG TAB.CHEW 0609 0616 CLOPIDOGREL (PLAVIX) 200 MG PO BID 09/10/2207/31 Strength: 300 MG TAB 0610 0616 PILOCARPINE (SALAGEN) 5 MG PO TID 09/10/2207/31 Strength: 5 MG TAB 10 15 NAPROXEN SODIUM ER 375 MG PO BID 09/10/2209/10 (NAPRELAN) 611 615 Strength: 375 MG TAB.SA CALCITRIOL (ROCALTROL) 0.5 MCG PO DAILY 3 09/10/22 Strength: 0.5 MCG CAP 612 1016 CALCIUM CARBONATE 500 MG PO 5XDAY 09/10/2207/31 (CALCIUM CARBONATE 500 614 0616 MG/5 ML) Strength: 500 MG/5ML ORAL.SUSP [...] 1830 D C 09/09 Acetaminophen PO 09/09 1831 2000 (NORCO 5/325) Acetaminophen 650 MG Q4H PRN PRN 09/09 181 AC (TYLENOL) PO 10/09 181 Gastrointestinal Drugs Sig/Yaniv Start time Last Medication Dose Route Stop Time Status Admin Docusate Sodium 100 MG BID 09/09 2100 AC (COLACE) PO 10/09 205 Magnesium Oxide 400 MG ONCE 09/09 181 DC (MAG-OX 400) PO 09/09 1930 Ondansetron HCl 4 MG Q4H PRN PRN 09/09 1815 AC (ZOFRAN) IV 10/09 181 Allergies: Coded Allergies: haloperidol (From HALDOL) (Mild, [...] clubbing, no cyanosis Musculoskeletal: no muscle spasm Neuro/DELIMER: alert, oriented X 3 Results Findings/Data: Laboratory Tests 09/09 1511 1511 Chemistry Ionized Calcium Renee (1.09 - [...] - 5.47 IU/mL) 2.15 Laboratory Tests 09/09 1510 Hematology WBC (4.5 - 11.0 x10 3/uL) [...] % (Auto) (14.0 - 32.0 %) 27.8 Barren % (Auto) (4.8 - 9.0 %) 6.3 Eos % (Auto) (0.3 - 3.7 %) 1.8 Baso % (Auto) (0.0 - 2.0 %) 0.4 Neut # (Auto) (2.0 - 7.6 x10 3/uL) 4.94 Lymph # (Auto) (1.0 - 3.8 x10 3/uL) 2.17 Barren # (Auto) (0.1 - 0.8 x10 3/uL) [...] MD on 0 09/20/22 at 1212 RPT #:[id number] END OF REPORT 2022-09-09 18:09:00-00:00 [facility] ([facility]) Clinical Note REPORT#:[id number] REPORT STATUS: Signed DATE:09/09/22 TIME: 180 PATIENT: LACI HALL UNIT #: [id number] ROOM/BED: [facility]99-2 : 95 AGE: 27 SEX: F ATTEND: Fercho Barnhart od, MD ADM AUTHOR: Mykel Fontana NP * ALL edits or amendments must be made on the [employer] document * Clinical Note Note: H P done Electronically Signed by Mykel Fontana NP on 07/31 at 0738 Electronically Signed by Nayan Barnhart MD on 0 09/20/22 at 1212 RPT #:[id number] END OF REPORT 2022-09-09 17:47:00-00:00 [facility] ([facility]) EMERGENCY PROVIDER REPORT REPORT#:[id number] REPORT STATUS: Signed DATE:09/09/22 TIME: 1746 PATIENT: LACI HALL UNIT #: [id number] ROOM/BED: [facility]7-1 AGE: 27 SEX: F PCP PHYS: Yaya Chisholm MD SERVICE AUTHOR: Sunil Mata MD * ALL edits or amendments must be made on the [employer] document * HPI-General Illness Free Text HPI Notes Free Text HPI Notes 27-year-old female history o f hypoparathyroidism with chronic hypocalcemia, age , Sjogren's syndrome, Chiari malformation,. 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 Calcium there was [...] (SALAGEN) 5 MG PO TID CALCIUM CARBONATE ([id number]) 500 MG PO DAILY CHOLECALCIFEROL (VITAMIN D3) [...] Documented: Result Date Time Pulse Ox 96 09/09 1434 B/P 139/85 09/09 1434 B/P Mean 103 09/09 1434 O2 Delivery Room air 09/09 1434 Temp 37.0 09/09 143 Pulse 100 09/09 1434 Resp 27 09/09 143 Last Documented: Result Date Time Pulse Ox 96 09/09 1434 B/P 139/85 09/09 1434 B/P Mean 103 09/09 143 O2 Delivery Room air 09/09 1434 Temp 37.0 09/09 143 Pulse 100 09/09 1434 Resp 27 09/09 143 Review of Vital Signs Reviewed Free Text [...] % (Auto) (14.0 - 32.0 %) 27.8 Barren % (Auto) (4.8 - 9.0 %) 6.3 Eos % (Auto) (0.3 - 3.7 %) 1.8 Baso % (Auto) (0.0 - 2.0 %) 0.4 Neut # (Auto) (2.0 - 7.6 x10 3/uL) 4.94 Lymph # (Auto) (1.0 - 3.8 x10 3/uL) 2.17 Barren # (Auto) (0.1 - 0.8 x10 3/uL) [...] Heart rate 97 bpm, regular sinus rhythm FL, QRS not prolonged QTc prolonged at 474 [...] Documented: Result Date Time Pulse Ox 96 09/09 1434 B/P 139/85 09/09 1434 B/P Mean 103 09/09 1434 O2 Delivery Room air 09/09 1434 Temp 37.0 09/09 1434 Pulse 100 / 1434 Resp 27 09/09 1434 Last Documented: Result Date Time Pulse Ox 96 09/09 143 B/P 139/85 09/09 1434 B/P Mean 103 / 1434 O2 Delivery Room air 09/09 1434 Temp 37.0 / 1434 Pulse 100 05/ 1434 Resp 27 09/09 1434 All vital signs available at the time of this en try have been reviewed. Condition Guarded Clinical Impression Clinical Impression Primary Impression: Hypocalcemia Secondary Impressions: Chest pain Disposition Decision Admit Admit Physician Name Nayan Barnhart MD Admit Physician Hospitalist Request Time 1748 Request Date 09/09/22 )( Admission Accepts Yes )( Accepted Time 1748 )( Accepted Date 09/09/22 Call Information will [...] Sunil Mata MD on 3 at 1426 [facility] #:[id number] END OF REPORT 2020-09-06 12:19:00-00:00 [facility] ([facility]) Op/Inv Procedure Note - Brief REPORT#:[id number] REPORT STATUS: Signed DATE:09/06/20 TIME: 1219 PATIENT: LACI HALL UNIT #: [id number] ROOM/BED: : 95 AGE: 25 SEX: F ATTEND: Rosalva Norris MD ADM AUTHOR: Rosalva Norris MD * ALL edits or amendments must be made on the [employer]/computer document * Op/Inv Proc Note - Brief TEXT Brief Op/Inv Procedure Note Note details: *PRE-PROCEDURE DIAGNOSIS: []Chronic tonsillitis Recurrent acute otitis media *POST-PROCEDURE DIAGNOSIS: Same[x] *PROCEDURE(S) PERFORMED: []Tonsillectomy Bilateral myringotomy and tube placement *PRIMARY SURGEON: []Rosalva Norris *BIOPHARMACEUTICAL REP(S): []none ANESTHETIC: []general *ESTIMATED BLOOD LOSS in ml's: []3 mL *SPECIMEN(S) REMOVED: []right and left tonsil *COMPLICATIONS: None[] DRAIN(S): None[x] TUBE(S): None[x] IMPLANT(S): None[x] FLUIDS: [] URINE OUTPUT: [] *FINDINGS: []clear middle ear space. 2+ cyrptic tonsils joselo aterally DISPOSITION: To PACU[] Electronically Signed by Rosalva Norris MD on 08/10 01/29 at 1220 [facility] #:[id number] END OF REPORT 2020-09-06 12:18:00-00:00 [id number] [place] [address] PATIENT NAME: LACI HALL ADMIT DATE: 09/06/20 ACCOUNT NO: [id number] ROOM NO: AGE: 25 REPORT TYPE: OPERATIVE REPORT SEX: F ADMITTING PHYSICIAN: ATTENDING PHYSICIAN:Rosalva Norris MD OPERATION DATE: SERVICE: Otolaryngology. PREOPERATIVE DIAGNOSES: 1. Chronic tonsillitis. 2. Recurrent acute otitis media. POSTOPERATIVE DIAGNOSES: 1. Chronic tonsillitis. 2. Recurrent acute otitis media. PROCEDURES: 1. Tonsillectomy, greater than 12 years old. 2. Bilateral myringotomy and tube placement. PRIMARY SURGEON: Rosalva Norris MD. BIOPHARMACEUTICAL REP: ANESTHESIA: General. ESTIMATED BLOOD LOSS: 3 mL. [...] patient was then knott spended to the [facility] for PATIENT NAME: LACI HALL 50 exposure [...] By: Rosalva Norris MD WT: OP:GFAITH/DEE/LISA Conf#: [id number]/DID#: [id number] Authenticated by Rosalva Norris MD On 09/22/2020 07 :24:50 PM Electronically Signed by Rosalva Norris MD on at 4115 PATIENT NAME: LACI HALL 50
[2022-12-19] MEDS ORDERED: MORPHINE 4 MG/ML SYR ONE (23:09)
[2022-12-19] MEDS ORDERED: ONDANSETRON 4 MG/2 ML VIAL ONE (23:09)
--- NOTE | 2022-12-20 00:44 | ER ---
Nurse's Notes [facility] Name: Letty Hall Age: 27 yrs Sex: Female : 1995 Arrival Date: 12/19/2022 Time: 22:28 Bed 14 Private MD: Diagnosis: Pain in left ankle and joints of left foot Presentation: 12/19 22:30 Chief complaint: EMS states: "Toned out for stepping wrong off of stair and hearing mb9 left ankle snap. Pt states 10/10 throbbing pain in left ankle. Gave 1 g of Ofirmev via 20 g to left AC.". Coronavirus screen: Vaccine status: Patient reports being unvaccinated. Ebola Screen: No symptoms or risks identified at this time. Initial Sepsis Screen: Does the patient meet any 2 criteria? No. Patient's initial sepsis screen is negative. Does the patient have a suspected source of infection? No. Patient's initial sepsis screen is negative. Risk Assessment: Do you want to hurt yourself or someone else? Patient reports no desire to harm self or others. Onset of symptoms was December 19, 2022. 22:30 Method Of Arrival: EMS: [facility] mb9 22:30 Acuity: BHAKTI 3 mb9 Triage Assessment: 22:35 General: Appears uncomfortable, Behavior is anxious. Pain: Complains of pain in left mb9 foot Pain does not radiate. Pain currently is 10 out of 10 on a pain scale. Quality of pain is described as throbbing, Pain began suddenly, Is continuous, Aggravated by increased activity, repositioning, weight bearing. Neuro: Harrell Agitation-Sedation Scale (RASS): 0 - Alert and Calm Level of Consciousness is awake, alert, obeys commands, Oriented to person, place, time, situation, Appropriate for age. Cardiovascular: Patient's skin is warm and dry. Respiratory: Airway is patent Respiratory effort is even, unlabored, Respiratory pattern is regular, symmetrical. GI: No signs and/or symptoms were reported involving the gastrointestinal system. : No signs and/or symptoms were reported regarding the genitourinary system. Derm: Skin is pink, warm \\T\\ dry. Musculoskeletal: Range of motion: limited in left ankle Swelling present in left foot. 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 - Social history:: Smoking status: Patient denies any tobacco usage or history of. Screenin:36 [facility] ED Fall Risk Assessment (Adult) History of falling in the last 3 months, mb9 including since admission Yes- single mechanical fall (1 pt) Confusion or Disorientation No (0 pts) Intoxicated or Sedated No (0 pts) Impaired Gait No (0 pts) Mobility Assist Device Used No (0 pt) Altered Elimination No (0 pt) Score/Fall Risk Level 0 - 2 = Low Risk Oriented to surroundings, Maintained a safe environment, Educated pt \\T\\ family on fall prevention, incl call for assistance when getting out of bed. Abuse screen: Denies threats or abuse. Nutritional screening: No deficits noted. Tuberculosis screening: No symptoms or risk factors identified. Assessment: 22:37 Reassessment: see triage assessment. mb9 12/20 01:56 Reassessment: Patient appears in no apparent distress at this time. Patient states kl feeling better. Patient states symptoms have improved. Vital Signs: 12/19 22:30 BP 125 / 73; Pulse 101; Resp 18; Temp 97.3; Pulse Ox 100% on R/A; Weight 127.01 kg; mb9 Height 5 ft. 5 in. ; Pain 0/10; 23:10 BP 97 / 76; Pulse 84; Resp 18; Pulse Ox 100% on R/A; mb9 12/20 01:56 BP 121 / 78; Pulse 82; Resp 18; Pulse Ox 99% on R/A; kl 12/19 22:30 Body Mass Index 46.59 (127.01 kg, 165.1 cm) mb9 12/19 22:30 Pain Scale: Adult mb9 ED Course: 12/19 22:30 Patient arrived in ED. mb9 22:34 Triage completed. mb9 22:34 Arm band placed on. mb9 22:36 No provider procedures requiring assistance completed. Maintain EMS IV. Dressing mb9 intact. Good blood return noted. Site clean \\T\\ dry. Gauge \\T\\ site: 20 g left AC. 22:37 Zeinab Faust, NYA is Primary Nurse. mb9 22:37 Placed in gown. Bed in low position. Call light in reach. Side rails up X 1. Client mb9 placed on continuous cardiac and pulse oximetry monitoring. NIBP monitoring applied. 22:39 Zi Oconnor PA is PHCP. cp 22:39 Zi Cerna MD is Attending Physician. cp 23:13 XRAY Ankle LEFT 3 view In Process Unspecified. EDMS 12/20 00:42 Haider Navarrete MD is Referral Physician. cp 01:56 IV discontinued, intact, bleeding controlled, No redness/swelling at site. Pressure kl dressing applied. 01:57 Randy wrap to left ankle 3D boot applied to left foot. kl Administered Medications: 12/19 22:57 CANCELLED (Physician Discretion): morphine IM 6 mg IM once cp 22:57 CANCELLED (Physician Discretion): Ketorolac IM 30 mg IM once cp 22:59 Drug: Ondansetron IVP 4 mg Route: IVP; Site: left antecubital; mb9 23:46 Follow up: Response: No adverse reaction mb9 23:03 Drug: morphine IVP or IV 4 mg Route: IVP; Infused Over: 4 mins; Site: left antecubital; mb9 23:46 Follow up: Response: No adverse reaction mb9 12/20 01:18 Drug: HYDROcodone-acetaminophen PO 10 mg-325 mg 1 tabs Route: PO; kl 01:56 Follow up: Response: No adverse reaction; Pain is decreased Medication: 12/19 22:37 VIS not applicable for this client. mb9 Outcome: 12/20 00:43 Discharge ordered by . cp 01:57 Discharged to home via wheelchair, with crutches, with family. kl 01:57 Condition: improved 01:57 Discharge instructions given to patient, Instructed on discharge instructions, follow up and referral plans. medication usage, Demonstrated understanding of instructions, follow-up care, medications, Prescriptions given X 2. 01:57 Patient left the ED. kl Signatures: Dispatcher [employer] EDVT Radha Perez RN RN kl Page, Corey, PA PA cp Breneman, Mary Beth, RN RN mb9 Corrections: (The following items were deleted from the chart) 12/19 23:11 23:10 BP 97 / 76; Pulse 84bpm; Pulse Ox 100% RA; mb9 mb9
--- NOTE | 2022-12-20 00:44 | EDPHYS ---
Physician Documentation [facility] Name: Letty Hall Age: 27 yrs Sex: Female : 1995 Arrival Date: 12/19/2022 Time: 22:28 Bed 14 Private MD: ED Physician Zi Cerna HPI: 12/19 23:00 This 27 yrs old Female presents to ER via EMS with complaints of Left Ankle Injury. cp 23:00 The patient presents with an injury, pain, that is acute, tenderness. The complaints cp affect the left ankle. Onset: The symptoms/episode began/occurred just prior to arrival. Context: Patient reports she was going down stairs when she missed several steps causing her to lose her balance. Patient reports hearing "snap" from left ankle. 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 - Social history:: Smoking status: Patient denies any tobacco usage or history of. ROS: 23:05 Constitutional: Negative for body aches, chills, fever, poor PO intake. cp 23:05 Eyes: Negative for injury, pain, redness, and discharge. cp 23:05 Neck: Negative for pain with movement, pain at rest, stiffness. 23:05 Cardiovascular: Negative for chest pain. 23:05 Respiratory: Negative for cough, shortness of breath, wheezing. 23:05 Abdomen/GI: Negative for abdominal pain, nausea, vomiting, and diarrhea. 23:05 Back: Negative for pain at rest, pain with movement. 23:05 MS/extremity: Positive for swelling, tenderness, of the left ankle. 23:05 Neuro: Negative for altered mental status, dizziness, headache, loss of consciousness, syncope, weakness. 23:05 All other systems are negative. Exam: 23:15 Constitutional: The patient appears in no acute distress, alert, awake, non-toxic, well cp developed, well nourished, obese, in obvious pain, uncomfortable. 23:15 Head/Face: Normocephalic, atraumatic. cp 23:15 Eyes: Periorbital structures: appear normal, Conjunctiva: normal, no exudate, no injection, Lids and lashes: appear normal, bilaterally. 23:15 ENT: External ear(s): are unremarkable, Nose: is normal, Mouth: Lips: moist, Oral mucosa: moist, Posterior pharynx: is normal, airway is patent, no erythema, no exudate. 23:15 Neck: ROM/movement: is normal, is supple, without pain, no range of motions limitations. 23:15 Chest/axilla: Inspection: normal. 23:15 Cardiovascular: Rate: normal, Rhythm: regular. 23:15 Respiratory: the patient does not display signs of respiratory distress, Respirations: normal. 23:15 Abdomen/GI: Inspection: abdomen appears normal. 23:15 Musculoskeletal/extremity: Extremities: grossly normal except: noted in the left ankle: severe pain, mild lateral malleolus swelling and marked tenderness to palpation, There is no evidence of decreased ROM, deformity, Achilles tendon rupture and no pain to palpation noted proximal left fifth metatarsal. 23:15 Neuro: Orientation: to person, place \\T\\ time. Mentation: is normal. 23:16 Special observations: complaints out of proportion to exam. cp Vital Signs: 22:30 BP 125 / 73; Pulse 101; Resp 18; Temp 97.3; Pulse Ox 100% on R/A; Weight 127.01 kg; mb9 Height 5 ft. 5 in. ; Pain 0/10; 23:10 BP 97 / 76; Pulse 84; Resp 18; Pulse Ox 100% on R/A; mb9 12/20 01:56 BP 121 / 78; Pulse 82; Resp 18; Pulse Ox 99% on R/A; kl 12/19 22:30 Body Mass Index 46.59 (127.01 kg, 165.1 cm) mb9 12/19 22:30 Pain Scale: Adult mb9 Procedures: 01:00 Splinting: Splint applied to left ankle using walking boot. applied by nurse. Examined cp by me, post splint application: neurovascular intact, Patient tolerated well. MDM: 12/19 22:39 Patient medically screened. cp 12/20 00:42 Data reviewed: vital signs, nurses notes, radiologic studies, plain films. cp 00:42 Differential diagnosis: fracture, sprain, dislocation. I considered the following cp discharge prescriptions or medication management in the emergency department Medications were administered in the Emergency Department. See MAR. Independent interpretation of the following test(s) in the Emergency Department X-Ray: My interpretation is images of left ankle negative for fracture. Counseling: I had a detailed discussion with the patient and/or guardian regarding: the historical points, exam findings, and any diagnostic results supporting the discharge/admit diagnosis, radiology results, the need for outpatient follow up, a orthopedic surgeon, to return to the emergency department if symptoms worsen or persist or if there are any questions or concerns that arise at home. Response to treatment: the patient's symptoms have markedly improved after treatment, and as a result, I will discharge patient. 12/19 22:56 Order name: XRAY Ankle LEFT 3 view cp 12/20 00:42 Order name: Walking boot; Complete Time: 01:18 cp 12/20 00:42 Order name: Crutches; Complete Time: 01:18 cp Administered Medications: 12/19 22:57 CANCELLED (Physician Discretion): morphine IM 6 mg IM once cp 22:57 CANCELLED (Physician Discretion): Ketorolac IM 30 mg IM once cp 22:59 Drug: Ondansetron IVP 4 mg Route: IVP; Site: left antecubital; mb9 23:46 Follow up: Response: No adverse reaction mb9 23:03 Drug: morphine IVP or IV 4 mg Route: IVP; Infused Over: 4 mins; Site: left antecubital; mb9 23:46 Follow up: Response: No adverse reaction mb9 12/20 01:18 Drug: HYDROcodone-acetaminophen PO 10 mg-325 mg 1 tabs Route: PO; kl 01:56 Follow up: Response: No adverse reaction; Pain is decreased kl Disposition Summary: 12/20/22 00:43 Discharge Ordered Location: Home cp Problem: new cp Symptoms: have improved cp Condition: Stable cp Diagnosis - Pain in left ankle and joints of left foot cp Followup: cp - With: Haider Navarrete MD - When: 5 - 6 days - Reason: Recheck today's complaints Discharge Instructions: - Discharge Summary Sheet cp - Elastic Bandage and RICE Therapy cp - Ankle Pain cp Forms: - Medication Reconciliation Form cp - Thank You Letter cp - Antibiotic Education cp - Prescription Opioid Use cp - Patient Portal Instructions cp - Leadership Thank You Letter cp Prescriptions: - acetaminophen-codeine 300-30 mg Oral tablet - take 2 tablet by ORAL route every 8 hours As needed; 12 tablet; Refills: 0, cp Product Selection Permitted - Naprosyn 500 mg Oral Tablet - take 1 tablet by ORAL route 2 times per day take with food; 20 tablet; Refills: cp 0, Product Selection Permitted Signatures: Dispatcher [employer] Radha Lewis RN RN kl Page, Corey, PA PA cp Breneman, Mary Beth, RN RN mb9 Corrections: (The following items were deleted from the chart) 12/19 22:57 22:56 morphine IM 6 mg IM once ordered. cp cp :57 22:56 Ketorolac IM 30 mg IM once ordered. cp cp 12/20 17:22 12/19 23:00 Context: Patient reports she was going down stairs when she missed several cp steps causing her to lose her balance. Patient reports hearing "pop" from ankle, cp 12/20 17:24 12/19 23:00 This 27 yrs old Female presents to ER via EMS with complaints of Right cp Ankle Injury. cp 12/20 17:24 12/19 23:00 Context: Patient reports she was going down stairs when she missed several cp steps causing her to lose her balance. Patient reports hearing "snap" from right ankle, cp 12/20 17:28 12/19 23:55 Splinting: Splint applied to left ankle using walking boot. applied by cp nurse. Examined by me, post splint application: neurovascular intact, Patient tolerated well, cp 12/20 17:30 12/19 23:15 Musculoskeletal/extremity: Extremities: grossly normal except: noted in the cp left ankle: severe pain, mild lateral malleolus swelling and marked tenderness to palpation, There is no evidence of decreased ROM, Achilles tendon rupture and no pain to palpation noted proximal left fifth metatarsal, cp
[2022-12-20] MEDS ORDERED: HYDROCODONE/APAP 10/325 TAB ONE (01:22)
[2022-12-20 02:02] VITALS: TEMP 97.3
[2022-12-20 02:04] VITALS: BP 121/78; O2SAT 99
--- NOTE | 2022-12-21 18:11 | RAD REPORT ---
EXAM DESCRIPTION: RAD - Ankle Left 3 View - 12/19/2022 11:11 pm CLINICAL HISTORY: 27 years Female, PAIN COMPARISON: None. FINDINGS: No fracture or dislocation. Talar dome is smooth. Joint spaces are preserved. Soft tissue swelling without joint effusion. Small calcaneal plantar spur. IMPRESSION: No acute osseous abnormality. Electronically signed by: Mikey Mcdaniel DO 12/20/2022 12:12 AM CDT Due to temporary technical issues with the PACS/Fluency reporting system, reports are being signed by the in house radiologists without review as a courtesy to insure prompt reporting. The interpreting radiologist is fully responsible for the content of the report.
== END 2022-12-20 01:57 | disposition home or self-care (01) ==
LOC: ER 22:28
DX: M25.572 Pain in left ankle and joints of left foot (principal)
CPT/HCPCS: 73610; 96375; 96374; 99284; J2405

== ENCOUNTER 2024-06-12 09:38 | Emergency (ER) | payer BC, OTHER ==
[2024-06-12] MEDS ORDERED: AMPICILLIN/SULBACTAM 3GM/VIAL ONE (11:05)
[2024-06-12] MEDS ORDERED: ONDANSETRON 4 MG/2 ML VIAL ONE (11:05)
[2024-06-12] MEDS ORDERED: MORPHINE 4 MG/ML SYR ONE (11:06)
[2024-06-12] MEDS ORDERED: NA CHLORIDE 0.9% 1,000 ML ONE (11:06)
[2024-06-12] MEDS ORDERED: NA CHLORIDE 0.9% 100 ML ONE (11:06)
[2024-06-12 11:13] LABS: Absolute Eosinophils 0.2 K/uL (0-0.5); Absolute Lymphocytes (CBC) 2.1 K/uL (0.7-4.9); Absolute Monocytes 0.5 K/uL (0.1-1.3); Absolute Neutrophil 5.8 K/uL (1.8-8.0); Basophils % 0.5 % (0-1.3); Eosinophils % 2.3 % (0-4.4); Hematocrit 40.8 % (36.0-45.0); Hemoglobin 13.6 g/dL (12.0-15.0); Lymphocytes % 24.6 % (15.3-44.8); MCH 28.1 pg (27.0-35.0); MCHC 33.4 g/dL (32.0-36.0); MCV 84.1 fL (80-100); MPV 8.6 fL (7.6-11.3); Monocytes % 6.3 % (3.3-12.3); Neutrophils % 66.3 % (41.7-73.7); Nucleated Red Blood Cells % 0.2 % (0-0); Platelets 313 thou/uL (152-406); RBC Red Blood Cell Count 4.85 M/uL (3.86-4.86); Red Cell Distribution Width 14.6 % (12.1-15.2)
[2024-06-12 11:16] LABS: PT Prothrombin Time 12.5 SECONDS (9.4-12.5); PTT, Activated Partial Thromb 31.7 SECONDS (24.3-36.9); Protime INR 1.19
[2024-06-12 11:18] LABS: Urine Bacteria None Seen /HPF (<20); Urine Bilirubin NEGATIVE (Negative); Urine Blood Trace (Negative); Urine Clarity Clear (Clear); Urine Color Yellow (Yellow); Urine Culture Reflex Order NOT NEEDED; Urine Glucose NEGATIVE (Negative); Urine Ketones NEGATIVE (Negative); Urine Microscopic Reflex YN ORDER UMIC; Urine Mucus Slight /HPF (None Seen); Urine Nitrite NEGATIVE (Negative); Urine Protein NEGATIVE (Negative); Urine RBC <5 /HPF (None Seen); Urine Urobilinogen Normal (Normal); Urine WBC <5 /HPF (<5); Urine pH 6.5 (5.0-7.0)
[2024-06-12 11:33] LABS: Potassium 3.4 mEq/L (3.5-5.1)
[2024-06-12 11:34] LABS: Albumin 3.1 g/dL (3.4-5.0); Albumin/Globulin Ratio 0.6 (1.1-1.8); Bilirubin Total 0.3 mg/dL (0.2-1.0); Globulin 5.4 g/dL (2.3-3.5); Protein, Total 8.5 g/dL (6.4-8.2)
[2024-06-12 12:07] LABS: Anion Gap 9.4 mEq/L (5.0-15.0)
--- NOTE | 2024-06-12 12:26 | RAD REPORT ---
EXAMINATION: CT MAXILLOFACIAL WITH CONTRAST CLINICAL INDICATION: Female, 28 years old. right lower jaw swelling TECHNIQUE: Axial images were obtained through the facial bones and orbits with intravenous contrast. Sagittal and coronal reconstructions were created from the data. One or more of the following dose reduction techniques were used: Automated exposure control, adjustment of the mA and/or kV according to patient size, and/or iterative reconstruction. Unless otherwise specified, incidental findings do not require dedicated imaging follow-up. [id number]. COMPARISON: No prior exam. FINDINGS: SOFT TISSUE: No significant abnormalities. BONES: Periapical lucency and dental caries associated with the right mandibular second premolar pres umably the source of pain. Mild right facial soft tissue swelling but no abscess at this time. ORBITS: The globes are intact. No intraorbital hemorrhage or mass. SINUSES: The paranasal sinuses and tympanomastoid cavities are predominantly clear. BRAIN: No acute abnormalities in the visualized intracranial structures. IMPRESSION: Dental fredrick and periapical lucency associated with the right mandibular second premolar which is pre sumably the patient's source of pain but no evidence of a dental abscess at this time. Right-sided facial skin thickening may be from a cellulitis.
--- NOTE | 2024-06-12 12:32 | ER ---
Nurse's Notes [facility] Name: Letty Hall Age: 28 yrs Sex: Female : 1995 Arrival Date: 06/12/2024 Time: 09:38 Bed 17 Private MD: Diagnosis: Disorder of teeth and supporting structures, unspecified;Cellulitis of face Presentation: 06/12 10:04 Chief complaint: RIGHT LOWER TOOTH PAIN X 5 MONTHS, RIGHT SIDED FACIAL SWELLING TODAY. hb Coronavirus screen: At this time, the client does not indicate any symptoms associated with coronavirus-19. Ebola Screen: No symptoms or risks identified at this time. 10:04 Method Of Arrival: Ambulatory hb 10:08 Initial Sepsis Screen: Does the patient meet any 2 criteria? No. Patient's initial hb sepsis screen is negative. Does the patient have a suspected source of infection? No. Patient's initial sepsis screen is negative. Risk Assessment: Do you want to hurt yourself or someone else? Patient reports no desire to harm self or others. Onset of symptoms was June 12, 2024. 10:08 Acuity: BHAKTI 3 hb Historical: - Allergies: 10:05 Haldol; hb 10:05 VANCOMYCIN AND DERIVATIVES; hb - PMHx: 10:05 Anxiety; Depression; GERD; hypocalcemia; hypoparathyroidism; psuedo cranial hb hypertension; Sinus Tachycardia; - PSHx: 10:05 Cholecystectomy; DNC X 2; Tonsillectomy; hb - Immunization history:: Adult Immunizations up to date. - Infectious Disease History:: Denies. - Social history:: Smoking status: Patient reports the use of cigarette tobacco products, smokes one-half pack cigarettes per day. Screenin:40 [facility] ED Fall Risk Assessment (Adult) History of falling in the last 3 months, aa5 including since admission No falls in past 3 months (0 pts) Confusion or Disorientation No (0 pts) Intoxicated or Sedated No (0 pts) Impaired Gait No (0 pts) Mobility Assist Device Used No (0 pt) Altered Elimination No (0 pt) Score/Fall Risk Level 0 - 2 = Low Risk Oriented to surroundings, Maintained a safe environment, Educated pt \T\ family on fall prevention, incl call for assistance when getting out of bed. Abuse screen: Denies threats or abuse. Nutritional screening: No deficits noted. Tuberculosis screening: No symptoms or risk factors identified. Assessment: 10:40 General: Appears uncomfortable, Behavior is calm, cooperative. Pain: Complains of pain aa5 in upper left molar and lower right second bicuspid Pain currently is 9 out of 10 on a pain scale. Quality of pain is described as throbbing, Is continuous. Neuro: Level of Consciousness is awake, alert, obeys commands, Oriented to person, place, time, situation. Cardiovascular: Heart tones S1 S2 present Rhythm is regular. Respiratory: Airway is patent Respiratory effort is even, unlabored, Respiratory pattern is regular, symmetrical. GI: No signs and/or symptoms were reported involving the gastrointestinal system. : No signs and/or symptoms were reported regarding the genitourinary system. EENT: Reports pain in upper left molar and lower right second bicuspid Poor dentition noted, multiple missing teeth noted, reports normally wears partial dentures but was unable today due to pain. Mild swelling noted to right jaw. . Derm: Skin is pink, warm \T\ dry. Musculoskeletal: Range of motion: intact in all extremities. 11:54 Reassessment: Pt to CT scan . aa5 12:50 Reassessment: Patient is alert, oriented x 3, equal unlabored respirations, skin aa5 warm/dry/pink. Vital Signs: 10:04 BP 132 / 97; Pulse 117; Resp 16; Temp 98.2; Pulse Ox 100% ; Weight 127.46 kg; Height 5 hb ft. 5 in. ; Pain 9/10; 12:00 BP 130 / 88; Pulse 105; Resp 18 S; Pulse Ox 99% on R/A; aa5 10:04 Body Mass Index 46.76 (127.46 kg, 165.1 cm) hb 10:04 Pain Scale: Adult hb ED Course: 09:41 Patient arrived in ED. ra3 09:43 Zi Oconnor PA is PHCP. cp 09:43 Chase Valera MD is Attending Physician. cp 10:07 Arm band placed on. hb 10:08 Triage completed. hb 10:20 Katia Bruce, NYA is Primary Nurse. aa5 10:40 Patient has correct armband on for positive identification. Bed in low position. Call aa5 light in reach. Side rails up X 1. Client placed on continuous cardiac and pulse oximetry monitoring. NIBP monitoring applied. monitoring and evaluation advisor on. Pulse ox on. NIBP on. 10:56 Warm blanket given. Verbal reassurance given. am7 10:56 Inserted saline lock: 20 gauge in right antecubital area, using aseptic technique. am7 Blood collected. Flushed with 10 mL NS. 10:56 Blood Culture Adult (2) Sent. am7 10:56 CBC with Diff Sent. am7 10:57 CMP Sent. am7 10:57 Lactate w/ 2H reflex if indic. Sent. am7 10:57 Protime (+inr) Sent. am7 10:57 Ptt, Activated Sent. am7 10:57 Urinalysis w/ reflexes Sent. am7 12:04 CT Facial Bones W/ Con \T\ Mpr In Process Unspecified. EDMS 12:32 Lakhwinder Olsen DDS is Referral Physician. cp 12:50 No provider procedures requiring assistance completed. IV discontinued, intact, aa5 bleeding controlled, No redness/swelling at site. Pressure dressing applied. Administered Medications: 11:10 Drug: NS 0.9% IV 1000 ml IV at 1000 ml once; to be given as a bolus over 60 minutes aa5 Route: IV; Rate: 1000 ml; Site: right antecubital; 12:10 Follow up: IV Status: Completed infusion; IV Intake: 1000ml aa5 11:10 Drug: Ondansetron IVP 4 mg IVP once; over 2 minutes Route: IVP; Site: right antecubital;aa5 11:20 Follow up: Response: No adverse reaction aa5 11:12 Drug: morphine IVP or IV 4 mg IVP once over 4 mins Route: IVP; Infused Over: 4 mins; aa5 Site: right antecubital; 11:20 Follow up: Response: No adverse reaction aa5 11:14 Drug: Ampicillin-Sulbactam Sodium IVPB 3 grams IVPB once over 30 mins; (mix in 100 mL aa5 NS) Route: IVPB; Infused Over: 30 mins; Site: right antecubital; 12:00 Follow up: IV Status: Completed infusion aa5 Medication: 12:50 VIS not applicable for this client. aa5 Intake: 12:10 IV: 1000ml; Total: 1000ml. aa5 Outcome: 12:32 Discharge ordered by MD. cp 12:50 Discharged to home ambulatory, aa5 12:50 Condition: stable 12:50 Discharge instructions given to patient, Instructed on discharge instructions, follow up and referral plans. medication usage, Demonstrated understanding of instructions, follow-up care, medications, Prescriptions given X 3, 12:53 Patient left the ED. em1 Signatures: Dispatcher [employer] ED DioniMartir em1 Katia Bruce, RN RN aa5 Zi Oconnor PA PA cp Baxter, Heather, RN RN Kay Keyes ra3 Justyna Guerrero am7 Corrections: (The following items were deleted from the chart) 11:48 11:00 Ampicillin-Sulbactam Sodium IVPB 3 grams IVPB in right antecubital over 30 mins aa5 aa5 11:48 11:02 morphine IVP or IV 4 mg IVP in right antecubital over 4 mins aa5 aa5
--- NOTE | 2024-06-12 12:32 | EDPHYS ---
Physician Documentation [facility] Name: Letty Hall Age: 28 yrs Sex: Female : 1995 Arrival Date: 06/12/2024 Time: 09:38 Bed 17 Private MD: ED Physician Chase Valera HPI: 06/12 10:20 This 28 yrs old Female presents to ER via Ambulatory with complaints of Toothache - cp Abscess, Facial Swelling. 10:20 The patient presents with pain. The problem is located in the right lower tooth. cp 10:20 Associated signs and symptoms: Pertinent positives: swelling, facial, Pertinent cp negatives: fever. Patient reports right lower tooth pain times 1 month. Woke up this morning with right lower jaw swelling. Has taken antibiotics on 2 separate occasions for this tooth pain and missed recent dental appointment. Historical: - Allergies: 10:05 Haldol; hb 10:05 VANCOMYCIN AND DERIVATIVES; hb - PMHx: 10:05 Anxiety; Depression; GERD; hypocalcemia; hypoparathyroidism; psuedo cranial hb hypertension; Sinus Tachycardia; - PSHx: 10:05 Cholecystectomy; DNC X 2; Tonsillectomy; hb - Immunization history:: Adult Immunizations up to date. - Infectious Disease History:: Denies. - Social history:: Smoking status: Patient reports the use of cigarette tobacco products, smokes one-half pack cigarettes per day. ROS: 10:25 Constitutional: Negative for body aches, chills, fever, poor PO intake, cp 10:25 ENT: Positive for dental pain, cp 10:25 Eyes: Negative for injury, pain, redness, and discharge, cp 10:25 Respiratory: Negative for cough, shortness of breath, wheezing, 10:25 Abdomen/GI: Negative for abdominal pain, nausea, vomiting, and diarrhea, 10:25 Neuro: Negative for altered mental status, dizziness, headache, weakness, 10:25 All other systems are negative, Exam: 10:30 Constitutional: The patient appears in no acute distress, alert, awake, non-toxic, well cp developed, well nourished, obese, 10:30 Head/face: Noted is swelling, that is mild, of the right jaw, tenderness, that is cp moderate, of the right jaw, 10:30 Eyes: Periorbital structures: appear normal, Conjunctiva: normal, no exudate, no injection, Sclera: no appreciated abnormality, Lids and lashes: appear normal, bilaterally, 10:30 ENT: External ear(s): are unremarkable, Ear canal(s): are normal, clear, TM's: dullness, bilaterally, Nose: is normal, Mouth: Lips: moist, Oral mucosa: moist, Posterior pharynx: Airway: no evidence of obstruction, patent, Dental exam: abscess, is not appreciated, dental caries, that is moderate, diffusely, gum swelling, that is mild, specifically in the right lower jaw, pain, that is moderate, specifically in the lower right first molar (#30), Voice: is normal, 10:30 Neck: ROM/movement: is normal, is supple, without pain, no range of motions limitations, no meningismus, no nuchal rigidity, 10:30 Chest/axilla: Inspection: normal, 10:30 Cardiovascular: Rate: tachycardic, Rhythm: regular, 10:30 Respiratory: the patient does not display signs of respiratory distress, Respirations: normal, no use of accessory muscles, no retractions, labored breathing, is not present, Breath sounds: are clear throughout, no decreased breath sounds, no stridor, no wheezing, 10:30 Abdomen/GI: Inspection: abdomen appears normal, 10:30 Neuro: Orientation: to person, place \T\ time. Mentation: is normal, 11:42 ECG was reviewed by the Attending Physician. Vital Signs: 10:04 BP 132 / 97; Pulse 117; Resp 16; Temp 98.2; Pulse Ox 100% ; Weight 127.46 kg; Height 5 hb ft. 5 in. ; Pain 9/10; 12:00 BP 130 / 88; Pulse 105; Resp 18 S; Pulse Ox 99% on R/A; aa5 10:04 Body Mass Index 46.76 (127.46 kg, 165.1 cm) hb 10:04 Pain Scale: Adult hb MDM: 10:09 Medical Screening Exam initiated cp 10:30 Differential diagnosis: dental abscess, cellulitis, sepsis. 12:31 Data reviewed: vital signs, nurses notes, lab test result(s), radiologic studies, CT cp scan, and as a result, I will discharge patient. 12:31 I considered the following discharge prescriptions or medication management in the emergency department Medications were administered in the Emergency Department. See MAR. Counseling: I had a detailed discussion with the patient and/or guardian regarding the historical points, exam findings, and any diagnostic results supporting the discharge/admit diagnosis, lab results, radiology results, the need for outpatient follow up, for definitive care, a dentist. Response to treatment: the patient's symptoms have markedly improved after treatment, and as a result, I will discharge patient. 06/12 10:13 Order name: Blood Culture Adult (2) cp 06/12 10:13 Order name: CBC with Diff; Complete Time: 11:23 cp 02 11:23 Interpretation: Reviewed. cp 06/12 10:13 Order name: CMP; Complete Time: 12:28 cp 06/12 12:28 Interpretation: Normal except: K 3.4; GLUC 114; CA 7.1; TP 8.5; ALB 3.1; GLOB 5.4; A/G cp 0.6. 06/12 10:13 Order name: Lactate w/ 2H reflex if indic.; Complete Time: 12:28 cp 06/12 10:13 Order name: Protime (+inr); Complete Time: 11:23 cp 06/12 10:13 Order name: Ptt, Activated; Complete Time: 11:23 cp 06/12 10:13 Order name: Urinalysis w/ reflexes cp 06/12 10:13 Order name: Test, Urine; Complete Time: 11:23 cp 06/12 10:13 Order name: CT Facial Bones W/ Con \T\ Mpr; Complete Time: 12:28 cp 06/12 10:13 Order name: EKG; Complete Time: 10:14 cp 06/12 10:13 Order name: Accucheck; Complete Time: 11:53 cp 06/12 10:13 Order name: Cardiac monitoring; Complete Time: 11:04 cp 06/12 10:13 Order name: EKG - Nurse/Tech; Complete Time: 11:53 cp 06/12 10:13 Order name: IV Saline Lock - Large Bore; Complete Time: 10:56 cp 06/12 10:13 Order name: Labs collected and sent; Complete Time: 10:56 cp 06/12 10:13 Order name: O2 Per Protocol; Complete Time: 11:04 cp 06/12 10:13 Order name: O2 Sat Monitoring; Complete Time: 11:04 cp 06/12 10:13 Order name: Vital Signs; Complete Time: 11:04 cp EC:42 Rate is 91 beats/min. Rhythm is regular. [place] interval is normal. QRS interval is normal. cp QT interval is normal. T waves are Inverted in lead aVR. Interpreted by me. Reviewed by me. Administered Medications: 11:10 Drug: NS 0.9% IV 1000 ml IV at 1000 ml once; to be given as a bolus over 60 minutes aa5 Route: IV; Rate: 1000 ml; Site: right antecubital; 12:10 Follow up: IV Status: Completed infusion; IV Intake: 1000ml aa5 11:10 Drug: Ondansetron IVP 4 mg IVP once; over 2 minutes Route: IVP; Site: right antecubital;aa5 11:20 Follow up: Response: No adverse reaction aa5 11:12 Drug: morphine IVP or IV 4 mg IVP once over 4 mins Route: IVP; Infused Over: 4 mins; aa5 Site: right antecubital; 11:20 Follow up: Response: No adverse reaction aa5 11:14 Drug: Ampicillin-Sulbactam Sodium IVPB 3 grams IVPB once over 30 mins; (mix in 100 mL aa5 NS) Route: IVPB; Infused Over: 30 mins; Site: right antecubital; 12:00 Follow up: IV Status: Completed infusion aa5 Disposition: 18:46 Co-signature as Attending Physician, Chase Valera MD I reviewed the patient's care rn provided by the Advanced Practice Provider and agree with the diagnosis and treatment plan. 06/13 09:53 Chart complete. cp Disposition Summary: 06/12/24 12:32 Discharge Ordered Notes: Location: Home cp Problem: new cp Symptoms: have improved cp Condition: Stable cp Diagnosis - Disorder of teeth and supporting structures, unspecified cp - Cellulitis of face cp Followup: cp - With: Lakhwinder Olsen DDS - When: 5 - 6 days - Reason: Recheck today's complaints Discharge Instructions: - Discharge Summary Sheet cp - Cellulitis, Adult cp - Dental Pain cp Forms: - Medication Reconciliation Form cp - Antibiotic Education cp - Prescription Opioid Use cp - Patient Portal Instructions cp - Leadership Thank You Letter cp Prescriptions: - Anaprox DS 550 mg Oral Tablet - take 1 tablet ORAL route every 12 hours As needed; 20 tablet; Refills: 0, cp Product Selection Permitted - Augmentin 875-125 mg Oral Tablet - take 1 tablet ORAL route every 12 hours for 10 days; 20 tablet; Refills: 0, cp Product Selection Permitted - Bactrim DS 800-160 mg Oral Tablet - take 1 tablet ORAL route every 12 hours for 10 days; 20 tablet; Refills: 0, cp Product Selection Permitted Signatures: Dispatcher [employer] EDChase Sherman MD MD rn Calderon, Audri RN RN aa5 Zi Oconnor PA PA Pebbles Carrillo RN RN Corrections: (The following items were deleted from the chart) 06/12 10:14 10:14 Facial Bones W/ Con \T\ [id number] ordered. EDND EDND
[2024-06-12 13:02] VITALS: BP 132/97; TEMP 98.2; O2SAT 100
--- NOTE | 2024-06-14 12:19 | EKG ---
Test Date: 2024-06-12 Test Time: 11:36:12 Electric Range Assembler: AM MEASUREMENT RESULTS: Intervals: Rate: 91 OH: 132 QRSD: 82 QT: 382 QTc: 469 [place]: P: 71 OH: 132 QRS: 82 T: 48 INTERPRETIVE STATEMENTS: Normal sinus rhythm Normal ECG Compared to ECG 10/08/2022 12:07:08 Sinus tachycardia no longer present T-wave abnormality no longer present Possible ischemia no longer present Electronically Signed On 06-14-24 12:15:32 MANAGER CUSTOMER SERVICE by Minesh Land
== END 2024-06-12 12:53 | disposition home or self-care (01) ==
LOC: ER 09:38
DX: L03.211 Cellulitis of face (principal); F17.210 Nicotine dependence, cigarettes, uncomplicated
CPT/HCPCS: 96365; 93005; 87040 ×2; 85025; 81001; 36415; 81025; 85610; 83605; 85730; 80053; 70487; 76377; 96375; 99285; Q9967; J0295; J2405; J7030